=== PATIENT | male | born 1955 | race African-American/Black ===

== ENCOUNTER 2017-07-20 19:34 | Inpatient (IN) | payer MEDICARE, MEDICAID ==
[~2017-07-20] VITALS: Ht 177.8 cm; Wt 66.8 kg
[2017-07-20] VITALS (18 sets, daily range): BP systolic 70–177; BP diastolic 47–105; PULSE 35–118; RESP 14–20; TEMP 97.5–98.1; O2SAT 92–100
[~2017-07-20 19:34] MED LIST: LANTUSP SQ; PROM1SUP12 PR; PROM25SU8 PO
[2017-07-20] MEDS ORDERED: SODIUM CHLOR 0.9% 1000 ML INJ 1,000 ML IV ONE ×4 (19:47→21:45)
[2017-07-20] MEDS ORDERED: SODIUM CHLORIDE 0.9% FLUSH 10 ML FLUSH IVF PRN (20:00)
[2017-07-20] MEDS ORDERED: fentaNYL DRIP 250 ML ONE (20:07)
[2017-07-20] MEDS ORDERED: MIDAZOLAM 100 MG/100 ML INJ 100 ML ONE (20:07)
[2017-07-20 20:10] LABS: I-STAT POTASSIUM 3.7 MMOL/L (3.5-4.9); I-STAT SODIUM 142 MMOL/L (138-146)
[2017-07-20 20:14] LABS: BASOPHIL % 0.4 % (0.0-2.0); EOSINOPHIL # 0.1 TH/MM3 (0-0.4); EOSINOPHIL % 1.3 % (0.0-4.0); HEMO FLAGS DIFF FINAL; LYMPH % 41.1 % (9.0-44.0); LYMPHOCYTE # 3.3 TH/MM3 (1.0-4.8); MEAN CELL VOLUME 95.8 FL (80.0-100.0); MEAN CORPUSCULAR HEMOGLOBIN 31.8 PG (27.0-34.0); MEAN CORPUSCULAR HGB CONC 33.1 % (32.0-36.0); MONO % 7.3 % (0.0-8.0); NEUT % 49.9 % (16.0-70.0); PLATELET COUNT 164 TH/MM3 (150-450); RED BLOOD COUNT 2.82 MIL/MM3 (4.50-5.90); RED CELL DISTRIBUTION WIDTH 14.4 % (11.6-17.2)
[2017-07-20] MEDS ORDERED: PROPOFOL 1000 MG/100 ML INJ 100 ML ONE (20:18)
[2017-07-20 20:32] LABS: ANION GAP 11 MEQ/L (5-15); AST (GOT) 48 U/L (15-37); BICARBONATE 23.2 MEQ/L (21.0-32.0); BLOOD UREA NITROGEN 39 MG/DL (7-18); CHLORIDE 106 MEQ/L (98-107); GLOMERULAR FILTRATION RATE 47 ML/MIN (>89); MAGNESIUM 1.2 MG/DL (1.5-2.5); POTASSIUM 3.7 MEQ/L (3.5-5.1); SODIUM (NA) 140 MEQ/L (136-145)
[2017-07-20 20:33] LABS: ALT (GPT) 34 U/L (12-78)
[2017-07-20 20:35] LABS: APTT (PATIENT) 22.9 SEC (24.3-30.1); PROTHROMBIN TIME - PATIENT 10.6 SEC (9.8-11.6)
[2017-07-20 20:37] LABS: ALKALINE PHOSPHATASE 86 U/L (45-117); CREATINE KINASE 161 U/L (39-308); TOTAL BILIRUBIN ADULT 0.2 MG/DL (0.2-1.0)
[2017-07-20] MEDS ORDERED: SUCCINYLCHOLINE CHLORIDE 100 MG/5 ML SYRINGE IV PUSH ONE (20:45)
[2017-07-20] MEDS ORDERED: ATROPINE SULFATE 1 MG/10 ML SYRINGE IV PUSH ONE (20:45)
[2017-07-20] MEDS ORDERED: DOPamine INJ PREMIX 500 ML IV PRN (20:45)
[2017-07-20] MEDS ORDERED: ETOMIDATE 20 MG/10 ML VIAL IV PUSH ONE (20:45)
[2017-07-20] MEDS ORDERED: VECURONIUM BROMIDE 10 MG VIAL IV PUSH ONE (20:45)
[2017-07-20 20:49] LABS: CKMB 2.7 NG/ML (0.5-3.6)
--- NOTE | 2017-07-20 20:56 | PD ---
HPI Chief Complaint: Syncope/Near-Syncope Time Seen by Provider: 19:46 Travel History International Travel<30 days: No Contact w/Intl Traveler<30days: No Traveled to known affect area: No History of Present Illness HPI Patient is 61-year-old male who presents to emergency room with EMS for evaluation of syncopal episode. As per EMS, patient was a convenience store today, reports that he felt lightheaded and dizzy and laid down on the ground. Patient reports that he became unconscious for a few minutes and then came to. When EMS arrived on scene, patient was bradycardic with a heart rate in the 30s with a junctional rhythm. Initial systolic blood pressure was in the 60s. Reports that her blood sugar was within normal limits. Patient then proceeded to vomit, heart rate and went to the 70s. After patient vomited, his blood pressure did go up to 90 systolic. Patient reports that he felt fine prior to the episode at a convenience store today. Patient reports only history of diabetes. Patient denies any drug or alcohol abuse. Patient denies any headache, chest pain, abdominal pain, patient with no other complaints at this time. PFSH Past Medical History Blood Disorders: No Anxiety: No Depression: No Cancer: No Cardiovascular Problems: No Diabetes: Yes Patient Takes Glucophage: No Diminished Hearing: No Endocrine: Yes Genitourinary: No Immune Disorder: No Musculoskeletal: No Neurologic: No Psychiatric: No Reproductive: No Respiratory: No Integumentary: Yes (recent MRSA with IV antibiotics) Immunizations Current: No Past Surgical History Other Surgery: Yes (RIGHT BIG TOE AMPUTATED) Social History Alcohol Use: Yes (OCC) Tobacco Use: No Substance Use: Yes (MARIJUANA OCC) Allergies-Medications (Allergen,Severity, Reaction): Coded Allergies: No Known Allergies (Verified , 06/22/11) Reported Meds & Prescriptions Reported Meds & Active Scripts Active Phenergan (Promethazine HCl) 25 Mg Tab 12.5-25 Mg PO Q6HPRN FOR NAUSEA/VOMITING Phenergan (Promethazine HCl) 25 Mg Sup 12.5-25 Mg NV Q6HPRN FOR NAUSEA/VOMITING Lantus (Insulin Glargine) 100 Units/Ml Inj 5 Units SQ HS Review of Systems ROS Limitations: Altered Mental Status Cardiovascular: Positive: Syncope Physical Exam Narrative GENERAL: confused, pale SKIN: Focused skin assessment warm/dry. HEAD: Atraumatic. Normocephalic. EYES: Pupils equal and round. No scleral icterus. No injection or drainage. ENT: No nasal bleeding or discharge. Mucous membranes pink and moist. NECK: Trachea midline. No JVD. CARDIOVASCULAR: Bradycardic. No murmur appreciated. RESPIRATORY: No accessory muscle use. Clear to auscultation. Breath sounds equal bilaterally. GASTROINTESTINAL: Abdomen soft, non-tender, nondistended. Hepatic and splenic margins not palpable. Light brown stool, grossly heme positive MUSCULOSKELETAL: No obvious deformities. No clubbing. No cyanosis. No edema. NEUROLOGICAL: Awake and alert. Motor grossly within normal limits. Normal speech. PSYCHIATRIC: Flat mood and affect Data Data Last Documented VS Vital Signs Date Time Temp Pulse Resp B/P (MAP) Pulse Ox O2 Delivery O2 Flow Rate FiO2 07/20/17 21:15 96 178/102 07/20/17 20:45 98 60 07/20/17 20:36 18 Ventilator 07/20/17 19:50 6.00 07/20/17 19:50 98.1 Orders Orders Electrocardiogram (07/20/17 19:47) Complete Blood Count With Diff (07/20/17 19:47) Comprehensive Metabolic Panel (07/20/17 19:47) Magnesium (Mg) (07/20/17 19:47) B-Type Natriuretic Peptide (07/20/17 19:47) Ckmb (Isoenzyme) Profile (07/20/17 19:47) Troponin I (07/20/17 19:47) Act Partial Throm Time (Ptt) (07/20/17 19:47) Prothrombin Time / Inr (Pt) (07/20/17 19:47) Urinalysis - C+S If Indicated (07/20/17 19:47) Chest, Single Ap (07/20/17 19:47) Ct Brain W/O Iv Contrast(Rout) (07/20/17 19:47) Blood Glucose (07/20/17 19:47) Ecg Monitoring (07/20/17 19:47) Iv Access Insert/Monitor (07/20/17 19:47) Oximetry (07/20/17 19:47) Oxygen Administration (07/20/17 19:47) Sodium Chloride 0.9% Flush (Ns Flush) (07/20/17 20:00) Sodium Chlor 0.9% 1000 Ml Inj (Ns 1000 M (07/20/17 19:47) Sodium Chlor 0.9% 1000 Ml Inj (Ns 1000 M (07/20/17 20:00) I-Stat Creatinine (07/20/17 19:58) I-Stat Profile (07/20/17 19:58) Midazolam 100 Mg/100 Ml Inj (Versed Inj) (07/20/17 20:07) Fentanyl Drip (Fentanyl Drip) (07/20/17 20:07) Propofol 1000 Mg/100 Ml Inj (Diprivan 10 (07/20/17 20:18) Type And Screen (07/20/17 20:29) CKMB (07/20/17 19:58) CKMB% (07/20/17 19:58) Ct Abd/Pel W/O Iv Contrast (07/20/17 20:38) Ct Thorax/ Chest Wo Iv Contras (07/20/17 ) Lactic Acid Sepsis Protocol (07/20/17 20:38) Blood Culture (07/20/17 20:38) Ng Gastric Tube Insert/Monitor (07/20/17 20:38) Arterial Blood Gas (Abg) (07/20/17 ) Fentanyl Drip (Fentanyl Drip) (07/20/17 20:45) Dopamine Inj Premix (Dopamine Inj Premix (07/20/17 20:45) Midazolam 100 Mg/100 Ml Inj (Versed Inj) (07/20/17 20:45) Neurological Rass Scale Q30MX2,Q2HX4,Q4H (07/20/17 20:38) Etomidate Inj (Amidate Inj) (07/20/17 20:45) Succinylcholine Inj (Quelicin Inj) (07/20/17 20:45) Vecuronium 10 Mg Inj (Norcuron 10 Mg Inj (07/20/17 20:45) Insert Temp Sensing Naqvi Cath (07/20/17 20:42) Restraints Non-Violent BAILEY.Q3H (07/20/17 20:42) Atropine Inj (Atropine Inj) (07/20/17 20:45) Drug Screen, Random Urine (07/20/17 20:44) C Diff Toxin Pcr (07/20/17 20:45) Electrocardiogram (07/20/17 ) Magnesium Sulfate 1 Gm Premix (Magnesium (07/20/17 21:15) Ammonia (07/20/17 21:11) Vancomycin Inj (Vancomycin Inj) (07/20/17 21:32) Piperacil-Tazo 4.5 Gm Premix (Zosyn 4.5 (07/20/17 21:32) Labs Laboratory Tests Test 07/20/17 19:58 07/20/17 20:00 07/20/17 20:30 07/20/17 20:50 White Blood Count 8.0 TH/MM3 Red Blood Count 2.82 MIL/MM3 Hemoglobin 9.0 GM/DL Bedside Hemoglobin 9.5 G/DL Hematocrit 27.0 % Bedside Hematocrit 28.0 % Mean Corpuscular Volume 95.8 FL Mean Corpuscular Hemoglobin 31.8 PG Mean Corpuscular Hemoglobin Concent 33.1 % Red Cell Distribution Width 14.4 % Platelet Count 164 TH/MM3 Mean Platelet Volume 9.2 FL Neutrophils (%) (Auto) 49.9 % Lymphocytes (%) (Auto) 41.1 % Monocytes (%) (Auto) 7.3 % Eosinophils (%) (Auto) 1.3 % Basophils (%) (Auto) 0.4 % Neutrophils # (Auto) 4.0 TH/MM3 Lymphocytes # (Auto) 3.3 TH/MM3 Monocytes # (Auto) 0.6 TH/MM3 Eosinophils # (Auto) 0.1 TH/MM3 Basophils # (Auto) 0.0 TH/MM3 CBC Comment DIFF FINAL Differential Comment Prothrombin Time 10.6 SEC Prothromb Time International Ratio 1.0 RATIO Activated Partial Thromboplast Time 22.9 SEC Bedside Sodium 142 MMOL/L Blood Urea Nitrogen 39 MG/DL Creatinine 1.78 MG/DL Random Glucose 224 MG/DL Total Protein 6.6 GM/DL Albumin 3.4 GM/DL Calcium Level 8.1 MG/DL Magnesium Level 1.2 MG/DL Alkaline Phosphatase 86 U/L Aspartate Amino Transf (AST/SGOT) 48 U/L Alanine Aminotransferase (ALT/SGPT) 34 U/L Total Bilirubin 0.2 MG/DL Sodium Level 140 MEQ/L Potassium Level 3.7 MEQ/L Chloride Level 106 MEQ/L Carbon Dioxide Level 23.2 MEQ/L Bedside Potassium 3.7 MMOL/L Bedside Chloride 104 MMOL/L Anion Gap 11 MEQ/L Bedside Blood Urea Nitrogen 38 MG/DL Bedside Creatinine 1.6 MG/DL Estimat Glomerular Filtration Rate 47 ML/MIN Bedside Glucose 222 MG/DL Total Creatine Kinase 161 U/L Creatine Kinase MB 2.7 NG/ML Troponin I 0.13 NG/ML B-Type Natriuretic Peptide 79 PG/ML Urine Color YELLOW Urine Turbidity CLEAR Urine pH 5.5 Urine Specific [place] 1.019 Urine Protein 100 mg/dL Urine Glucose (UA) 70 mg/dL Urine Ketones NEG mg/dL Urine Occult Blood NEG Urine Nitrite NEG Urine Bilirubin NEG Urine Urobilinogen LESS THAN 2.0 MG/DL Urine Leukocyte Esterase NEG Urine RBC LESS THAN 1 /hpf Urine WBC 1 /hpf Urine Hyaline Casts 3 /lpf Microscopic Urinalysis Comment CATH-CULT NOT IND Urine Opiates Screen NEG Urine Barbiturates Screen NEG Urine Amphetamines Screen NEG Urine Benzodiazepines Screen NEG Urine Cocaine Screen NEG Urine Cannabinoids Screen POS Blood Gas Puncture Site LT FEMORAL Blood Gas Patient Temperature 98.6 Blood Gas HCO3 19 mmol/L Blood Gas Base Excess -8.4 mmol/L Blood Gas Oxygen Saturation 94 % Arterial Blood pH 7.16 Arterial Blood Partial Pressure CO2 55 mmHg Arterial Blood Partial Pressure O2 201 mmHG Arterial Blood Oxygen Content 11.6 Vol % Arterial Blood Carboxyhemoglobin 3.7 % Arterial Blood Methemoglobin 1.0 % Blood Gas Hemoglobin 8.4 G/DL Oxygen Delivery Device VENTILATOR Blood Gas Ventilator Setting Blood Gas Inspired Oxygen 100 % Lactic Acid Level 5.4 mmol/L MDM Medical Decision Making Medical Screen Exam Complete: Yes Emergency Medical Condition: Yes Medical Record Reviewed: Yes Interpretation(s) EKG at 1943: Afib at 53bpm, qt/qtc: 409/391 Vital Signs Date Time Temp Pulse Resp B/P (MAP) Pulse Ox O2 Delivery O2 Flow Rate FiO2 07/20/17 20:36 103 18 134/76 (95) 100 Ventilator 07/20/17 20:24 98 18 129/71 (90) 100 Ventilator 07/20/17 20:13 118 18 157/95 (115) 100 Ventilator 07/20/17 20:12 100 07/20/17 20:11 106 14 162/73 (102) 100 Ventilator 07/20/17 20:06 44 14 77/54 (62) 100 Ventilator 07/20/17 20:04 35 81/48 (59) 07/20/17 20:02 37 81/48 (59) 07/20/17 19:50 98 6.00 07/20/17 19:50 98.1 53 14 101/57 (72) 98 Nasal Cannula 6.00 07/20/17 19:50 14 101/57 (72) 98 6.00 07/20/17 19:48 64 14 98 Nasal Cannula 6.00 07/20/17 19:45 53 14 70/47 (55) 93 Nasal Cannula 6.00 07/20/17 19:40 68 20 140/80 (100) 92 Differential Diagnosis Differential includes ACS, arrhythmia, electrolyte abnormality, intracranial hemorrhage, GI bleed, infection Narrative Course Patient was placed on a rn cardiac rehab upon arrival to the emergency room. Patients EKG showed A. fib at 53 bpm, patient denies history of A. fib in the past. Patient then had a large bowel movement, he then became bradycardic with a heart rate in the 30s - 40s. 1 mg of atropine was given to patient without resolution of symptoms. Patient then became unresponsive and hypotensive. Dopamine drip was started. Patient was intubated for airway protection using succinylcholine as well as etomidate. After patient was intubated, right-sided internal jugular central line was placed. Patient was initially started on a propofol drip for sedation as his BP and HR did respond to dopamine drip, he did become hypotensive with the propofol drip. A dose of vecuronium was given to him as a paralytic as he was fighting the vent and propofol had to be held due to hypotension and I was placing central line during this time. In the meantime, fentyl and versed drip was ordered. Patient tolerated procedure well.. ABG ordered. X-ray of the chest was ordered to confirm central line placement as well as ET tube placement. CTs of the chest, abdomen and pelvis, head ordered. IV fluid bolus wide open was ordered as well. Critical Care Narrative Aggregate critical care time was 60 minutes. Time to perform other separately billable procedures was not included in the critical care time. My time did not include minutes spent treating any other patients simultaneously or on activities that did not directly contribute to the patient's treatment. The services I provided to this patient were to treat and/or prevent clinically significant deterioration that could result in: , decompensation, deterioration I provided critical care services requiring my management, as noted below: Chart data review, documentation time, medication orders and management, vital sign assessments/reviewing monitor data, ordering and reviewing lab tests, ordering and interpreting/reviewing x-rays and diagnostic studies, care of the patient and discussion of the patient with the admitting physicians. Procedures Procedure Narrative After the risks and benefits were discussed the following procedure was performed: INTUBATION: The patient was put in optimal position for the procedure. Rapid sequence intubation was initiated by me using 20 milligrams of etomidate IV and 100 milligrams of succinylcholine IV. The patient was intubated with a 7.5 cuffed endotracheal tube. Tube placement was confirmed by visualization of the tube and balloon passing through the cords, capnometry and subsequent chest x-ray. Breath sounds were equal and well aerated bilaterally postintubation. No breath sounds over stomach. Patient tolerated procedure well. CENTRAL VENOUS LINE: The site was prepped with Betadine and sterilely draped. It was infiltrated with 1% lidocaine plain. The deep vein was cannulated using normal Seldinger technique. A triple lumen central line was placed in the right EJ site and secured with simple interrupted suture. The site was sterilely dressed. The patient tolerated the procedure well. Diagnosis Primary Impression: Syncope and collapse Additional Impressions: Bradycardia GI bleed Renal insufficiency NSTEMI (non-ST elevated myocardial infarction) Sepsis Admitting Information Admitting Physician Requests: Joanne Vieyra DO Jul 20, 2017 20:56
[2017-07-20 21:00] LABS: BLOOD GAS BASE EXCESS -8.4 mmol/L (-2-2); BLOOD GAS CARBOXYHEMOGLOBIN 3.7 % (0-4); BLOOD GAS HCO3 19 mmol/L (22-26); BLOOD GAS O2 HGB SATURATION 94 % (90-100); BLOOD GAS OXYGEN CONTENT 11.6 Vol % (12.0-20.0); BLOOD GAS PCO2 55 mmHg (38-42); BLOOD GAS PO2 201 mmHG (61-120); BLOOD GAS TOTAL HGB 8.4 G/DL (12.0-16.0); CRITICAL VALUE YES; OXYGEN DEVICE VENTILATOR; TEMP CORR TO 98.6
[2017-07-20 21:00] LABS: BLOOD, URINE NEG (NEG); COMMENT (UR) CATH-CULT NOT IND; CULTURE IF INDICATED CATH CULTURE NOT IND; GLUCOSE,URINE 70 mg/dL (NEG); HYALINE CAST, URINE 3 /lpf (RARE); KETONE, URINE NEG (NEG); NITRITE,URINE NEG (NEG); PH, URINE 5.5 (5.0-8.5); URINE COLOR YELLOW (YELLW/STRAW)
[2017-07-20 21:01] LABS: DRAW SITE LT FEMORAL; FIO2 100 %; NUMBER OF ARTERIAL PUNCTURES 1; STAT YES
[2017-07-20] MEDS: fentaNYL DRIP 250 ML IV PRN (21:14)
[2017-07-20] MEDS: MIDAZOLAM 100 MG/100 ML INJ 100 ML IV PRN (21:15)
[2017-07-20] MEDS: MAGNESIUM SULFATE 1 GM PREMIX 100 ML IV SCH ×2 (21:17→22:49)
[2017-07-20] MEDS ORDERED: PIPERACIL-TAZO 4.5 GM PREMIX 100 ML IV STA (21:32)
[2017-07-20] MEDS ORDERED: VANCOMYCIN INJ 1,000 MG in SODIUM CHLOR 0.9% 250 ML INJ 250 ML IV STA (21:32)
--- NOTE | 2017-07-20 21:50 | RADRPT ---
EXAM DATE/TIME: 07/20/2017 20:59 [facility] COMPARISON: CHEST SINGLE AP, September 23, 2010, 16:15. INDICATIONS : Evaluate intubation and central line placement MEDICAL HISTORY : None. SURGICAL HISTORY : None. ENCOUNTER: Initial ACUITY: 1 day PAIN SCORE: Non-responsive. LOCATION: chest FINDINGS: There is a right internal jugular central line in place with the tip overlying the SVC. This is well placed. A pneumothorax is not seen. The ET tube tip is 3.5 cm from the linette. The NG tube tip is dir ected into the stomach. The heart size is normal. There some linear suspected atelectasis at the left lung base. Right lung is clear. CONCLUSION: ET tube, NG tube, and right internal jugular central line are all well placed. Gary Ray MD on July 20, 2017 at 21:47 Board Certified Radiologist. This report was verified electronically.
--- NOTE | 2017-07-20 22:24 | RADRPT ---
EXAM DATE/TIME: 07/20/2017 22:14 [facility] COMPARISON: No previous studies available for comparison. INDICATIONS : Syncopal episode. RADIATION DOSE: 58.60 CTDIvol (mGy) ; Tabletop CT Head MEDICAL HISTORY : Diabetes. SURGICAL HISTORY : None. ENCOUNTER: Initial ACUITY: 1 day PAIN SCALE: Non-responsive LOCATION: cranial TECHNIQUE: Multiple contiguous axial images were obtained of the head. Using automated exposure control and adj ustment of the mA and/or kV according to patient size, radiation dose was kept as low as reasonably a chievable to obtain optimal diagnostic quality images. DICOM format image data is available electro nically for review and comparison. FINDINGS: CEREBRUM: The ventricles are normal for age. No evidence of midline shift, mass lesion, hemorrhage or acute in farction. No extra-axial fluid collections are seen. POSTERIOR FOSSA: The cerebellum and brainstem are intact. The 4th ventricle is midline. The cerebellopontine angle i s unremarkable. EXTRACRANIAL: There is a 2.8 x 1.1 cm hyperdense areas seen in the posterior occipital scalp region/upper neck seen just to the right of midline. The visualized portion of the orbits is intact. There is fluid or muco patty disease in the ethmoid sinuses. The patient is intubated. SKULL: The calvaria is intact. No evidence of skull fracture. CONCLUSION: 1. No acute intracranial abnormality. 2. 2.8 cm hyperdense area seen in the superficial fat at the lower occipital/upper neck subcutaneous fat likely representing a hematoma. Gary Ray MD on July 20, 2017 at 22:20 Board Certified Radiologist. This report was verified electronically.
--- NOTE | 2017-07-20 22:38 | HHI.HP ---
HPI Service Critical Care Medicine Primary Care Physician Unknown Admission Diagnosis Sepsis, Symptomatic Bradycardia Diagnosis: Travel History International Travel<30 Days: No Contact w/Intl Traveler <30 Da: No Traveled to Known Affected Are: No History of Present Illness 61-year-old male who presents for evaluation of syncopal episode. As per EMS, patient was at convenience store today, reports that he felt lightheaded and dizzy and laid down on the ground. Patient reports that he became unconscious for a few minutes and then return to normal. When EMS arrived on scene, patient was bradycardic with a heart rate in the 30s with a junctional rhythm. Initial systolic blood pressure was in the 60s. Reports that her blood sugar was within normal limits. Patient then proceeded to vomit, heart rate and went to the 70s. After patient vomited, his blood pressure did go up to 90 systolic. Patient reports that he felt fine prior to the episode at a convenience store today. Patient reports only history of diabetes and he denies any drug or alcohol abuse. Patient denies any headache, chest pain, abdominal pain, patient with no other complaints at this time. In the emergency department he had another episode of lethargy and altered consciousness and was intubated by ED attending for an airway protection. Review of Systems ROS Unobtainable patient is sedated and intubated Past Family Social History Allergies: Coded Allergies: No Known Allergies (Verified , 07/20/17) Past Medical History Hypertension Diabetes Chronic pain syndrome Past Surgical History None Reported Medications Reported Meds & Active Scripts Active Phenergan (Promethazine HCl) 25 Mg Tab 12.5-25 Mg PO Q6HPRN FOR NAUSEA/VOMITING Phenergan (Promethazine HCl) 25 Mg Sup 12.5-25 Mg RI Q6HPRN FOR NAUSEA/VOMITING Lantus (Insulin Glargine) 100 Units/Ml Inj 5 Units SQ HS Active Ordered Medications Current Medications Medications (Trade) Dose Ordered Sig/Omero Route PRN Reason Start Time Stop Time Status Last Admin Dose Admin Fentanyl Citrate 250 ml @ 5 mls/hr TITRATE PRN IV SEDATION 07/20/17 20:45 07/20/17 21:14 Dopamine HCl/ Dextrose 500 ml @ 7.875 mls/ hr TITRATE PRN IV Blood Pressure Management 07/20/17 20:45 07/20/17 21:15 Midazolam HCl 100 ml @ 2 mls/hr TITRATE PRN IV SEDATION 07/20/17 20:45 07/20/17 21:15 Sodium Chloride 1,000 ml @ 84 mls/hr [id number] IV 07/20/17 22:39 07/20/17 23:25 Sodium Chloride (NS Flush) 2 ml UNSCH PRN IV FLUSH FLUSH AFTER USING IV ACCESS 07/20/17 22:45 Sodium Chloride (NS Flush) 2 ml BID IV FLUSH 07/21/17 09:00 Acetaminophen (Tylenol) 650 mg Q6H PRN PO FEVER >101F 07/20/17 22:45 Acetaminophen/ Hydrocodone Bitart ([place] 5-325 Mg) 1 tab Q4H PRN PO PAIN SCALE 1 TO 5 07/20/17 22:45 Morphine Sulfate (Morphine Inj) 2 mg Q2H PRN IV PUSH PAIN SCALE 6 TO 10 07/20/17 22:45 Famotidine (Pepcid Inj) 10 mg Q12HR IV PUSH 07/21/17 09:00 Lorazepam (Ativan Inj) 1 mg Q1H PRN IV PUSH Agitation/Sedation 07/20/17 22:45 Artificial Tears (Tears Naturale Opth Soln) 1 drop TID EACH EYE 07/21/17 09:00 Ondansetron HCl (Zofran Inj) 4 mg Q6H PRN IV PUSH NAUSEA OR VOMITING 07/20/17 22:45 Albuterol/ Ipratropium (Duoneb Neb) 1 ampule Q6HR NEB INH 07/21/17 04:00 Albuterol/ Ipratropium (Duoneb Neb) 1 ampule Q2HR NEB PRN INH WHEEZING 07/20/17 22:45 Heparin Sodium (Porcine) (Heparin Inj) 5,000 units Q8H SQ 07/21/17 00:00 Miscellaneous Information 1 [id number] XX 07/20/17 22:45 Chlorhexidine Gluconate (Chlorhexidine 2% Cloth) 3 pack Taper DAILY@04 TOP 07/21/17 04:00 07/17/18 03:59 Chlorhexidine Gluconate (Chlorhexidine 2% Cloth) 3 pack UNSCH PRN TOP HYGIENIC CARE 07/20/17 22:45 Senna/Docusate Sodium (Pema-Colace) 1 tab BID PO 07/21/17 09:00 Magnesium Hydroxide (Milk Of Magnesia Liq) 30 ml Q12H PRN PO MILD - MODERATE CONSTIPATION 07/20/17 22:45 Sennosides (Senokot) 17.2 mg Q12H PRN PO MODERATE - SEVERE CONSTIPATION 07/20/17 22:45 Bisacodyl (Dulcolax Supp) 10 mg DAILY PRN RECTAL SEVERE CONSITIPATION 07/20/17 22:45 Lactulose (Lactulose Liq) 30 ml DAILY PRN PO SEVERE CONSITIPATION 07/20/17 22:45 Family History Unobtainable Social History Denies history of alcohol or illicit drug abuse Physical Exam Vital Signs Vital Signs Date Time Temp Pulse Resp B/P (MAP) Pulse Ox O2 Delivery O2 Flow Rate FiO2 07/20/17 22:10 100 98 07/20/17 21:15 96 178/102 07/20/17 20:45 98 60 07/20/17 20:36 103 18 134/76 (95) 100 Ventilator 07/20/17 20:24 98 18 129/71 (90) 100 Ventilator 07/20/17 20:13 118 18 157/95 (115) 100 Ventilator 07/20/17 20:12 100 07/20/17 20:11 106 14 162/73 (102) 100 Ventilator 07/20/17 20:06 44 14 77/54 (62) 100 Ventilator 07/20/17 20:05 99 100 07/20/17 20:04 35 81/48 (59) 07/20/17 20:02 37 81/48 (59) 07/20/17 19:50 98 6.00 07/20/17 19:50 98.1 53 14 101/57 (72) 98 Nasal Cannula 6.00 07/20/17 19:50 14 101/57 (72) 98 6.00 07/20/17 19:48 64 14 98 Nasal Cannula 6.00 07/20/17 19:45 53 14 70/47 (55) 93 Nasal Cannula 6.00 07/20/17 19:40 68 20 140/80 (100) 92 Physical Exam GENERAL: Elderly appearing gentleman sedated and intubated SKIN: Warm and dry. HEAD: Normocephalic. EYES: No scleral icterus. No injection or drainage. NECK: Supple, trachea midline. No JVD or lymphadenopathy. CARDIOVASCULAR: Regular rate and rhythm without murmurs, gallops, or rubs. RESPIRATORY: Breath sounds equal bilaterally. No accessory muscle use. GASTROINTESTINAL: Abdomen soft, non-tender, nondistended. MUSCULOSKELETAL: No cyanosis, or edema. BACK: Nontender without obvious deformity. NEURO EXAM: GCS: M6 Vt E3 Mental Status: The patient is sedated and intubated Cranial Nerves: Pupils are round, reactive to light. Reflexes: Biceps, patellar, and Achilles are 2/4 bilaterally. No clonus. Laboratory Laboratory Tests Test 07/20/17 19:58 07/20/17 20:00 07/20/17 20:30 07/20/17 20:50 White Blood Count 8.0 Red Blood Count 2.82 Hemoglobin 9.0 Bedside Hemoglobin 9.5 Hematocrit 27.0 Bedside Hematocrit 28.0 Mean Corpuscular Volume 95.8 Mean Corpuscular Hemoglobin 31.8 Mean Corpuscular Hemoglobin Concent 33.1 Red Cell Distribution Width 14.4 Platelet Count 164 Mean Platelet Volume 9.2 Neutrophils (%) (Auto) 49.9 Lymphocytes (%) (Auto) 41.1 Monocytes (%) (Auto) 7.3 Eosinophils (%) (Auto) 1.3 Basophils (%) (Auto) 0.4 Neutrophils # (Auto) 4.0 Lymphocytes # (Auto) 3.3 Monocytes # (Auto) 0.6 Eosinophils # (Auto) 0.1 Basophils # (Auto) 0.0 CBC Comment DIFF FINAL Differential Comment Prothrombin Time 10.6 Prothromb Time International Ratio 1.0 Activated Partial Thromboplast Time 22.9 Bedside Sodium 142 Blood Urea Nitrogen 39 Creatinine 1.78 Random Glucose 224 Total Protein 6.6 Albumin 3.4 Calcium Level 8.1 Magnesium Level 1.2 Alkaline Phosphatase 86 Aspartate Amino Transf (AST/SGOT) 48 Alanine Aminotransferase (ALT/SGPT) 34 Total Bilirubin 0.2 Sodium Level 140 Potassium Level 3.7 Chloride Level 106 Carbon Dioxide Level 23.2 Bedside Potassium 3.7 Bedside Chloride 104 Anion Gap 11 Bedside Blood Urea Nitrogen 38 Bedside Creatinine 1.6 Estimat Glomerular Filtration Rate 47 Bedside Glucose 222 Total Creatine Kinase 161 Creatine Kinase MB 2.7 Troponin I 0.13 B-Type Natriuretic Peptide 79 Urine Color YELLOW Urine Turbidity CLEAR Urine pH 5.5 Urine Specific [place] 1.019 Urine Protein 100 Urine Glucose (UA) 70 Urine Ketones NEG Urine Occult Blood NEG Urine Nitrite NEG Urine Bilirubin NEG Urine Urobilinogen LESS THAN 2.0 Urine Leukocyte Esterase NEG Urine RBC LESS THAN 1 Urine WBC 1 Urine Hyaline Casts 3 Microscopic Urinalysis Comment CATH-CULT NOT IND Urine Opiates Screen NEG Urine Barbiturates Screen NEG Urine Amphetamines Screen NEG Urine Benzodiazepines Screen NEG Urine Cocaine Screen NEG Urine Cannabinoids Screen POS Blood Gas Puncture Site LT FEMORAL Blood Gas Patient Temperature 98.6 Blood Gas HCO3 19 Blood Gas Base Excess -8.4 Blood Gas Oxygen Saturation 94 Arterial Blood pH 7.16 Arterial Blood Partial Pressure CO2 55 Arterial Blood Partial Pressure O2 201 Arterial Blood Oxygen Content 11.6 Arterial Blood Carboxyhemoglobin 3.7 Arterial Blood Methemoglobin 1.0 Blood Gas Hemoglobin 8.4 Oxygen Delivery Device VENTILATOR Blood Gas Ventilator Setting Blood Gas Inspired Oxygen 100 Lactic Acid Level 5.4 Test 07/20/17 21:30 Ammonia 11 Date/Time Source Procedure Growth Status 07/20/17 20:46 Blood Peripheral Aerobic Blood Culture Pending Received 07/20/17 20:46 Blood Peripheral Anaerobic Blood Culture Pending Received Result Diagram: 07/20/[id number] Imaging Last 24 hours Impressions Abdomen/Pelvis CT 07/20/[id number] Signed Impressions: Service Date/Time: July 22:18 - CONCLUSION: 1. Mild amount of ascites seen around the liver. 2. Mild thickening of the gallbladder wall. This is nonspecific. Calcified gallstones are not seen. 3. Moderate distension of the urinary bladder. There is Naqvi catheter in the urinary bladder. Gary Ray MD Head CT [id number]/20/[id number] Signed Impressions: Service Date/Time: July 22:14 - CONCLUSION: 1. No acute intracranial abnormality. 2. 2.8 cm hyperdense area seen in the superficial fat at the lower occipital/upper neck subcutaneous fat likely representing a hematoma. Gary Ray MD Chest X-Ray [id number]/20/[id number] Signed Impressions: Service Date/Time: July 20:59 - CONCLUSION: ET tube, NG tube, and right internal jugular central line are all well placed. Gary Ray MD [place] VTE Risk Assessment Caprini VTE Risk Assessment: Mod/High Risk (score >= 2) Caprini Risk Assessment Model Point Value = 1 Point Value = 2 Point Value = 3 Point Value = 5 Age 41-60 Minor surgery BMI > 25 kg/m2 Swollen legs Varicose veins or History of unexplained or recurrent spontaneous Oral contraceptives or hormone replacement Sepsis (< 1 month) Serious lung disease, including pneumonia (< 1 month) Abnormal pulmonary function Acute myocardial infarction Congestive heart failure (< 1 month) History of inflammatory bowel disease Medical patient at bed rest Age 61-74 Arthroscopic surgery Major open surgery (> 45 min) Laparoscopic surgery (> 45 min) Malignancy Confined to bed (> 72 hours) Immobilizing plaster cast Central venous access Age >= 75 History of VTE Family history of VTE Factor V Leiden Prothrombin [id number] Lupus anticoagulant Anticardiolipin antibodies Elevated serum homocysteine Heparin-induced thrombocytopenia Other congenital or acquired thrombophilia Stroke (< 1 month) Elective arthroplasty Hip, pelvis, or leg fracture Acute spinal cord injury (< 1 month) Prophylaxis Regimen Total Risk Factor Score Risk Level Prophylaxis Regimen 0-1 Low Early ambulation 2 Moderate Order ONE of the following: *Sequential Compression Device (SCD) *Heparin 5000 units SQ BID 3-4 Higher Order ONE of the following medications: *Heparin 5000 units SQ TID *Enoxaparin/Lovenox 40 mg SQ daily (WT < 150 kg, CrCl > 30 mL/min) *Enoxaparin/Lovenox 30 mg SQ daily (WT < 150 kg, CrCl > 10-29 mL/min) *Enoxaparin/Lovenox 30 mg SQ BID (WT < 150 kg, CrCl > 30 mL/min) AND/OR *Sequential Compression Device (SCD) 5 or more Highest Order ONE of the following medications: *Heparin 5000 units SQ TID (Preferred with Epidurals) *Enoxaparin/Lovenox 40 mg SQ daily (WT < 150 kg, CrCl > 30 mL/min) *Enoxaparin/Lovenox 30 mg SQ daily (WT < 150 kg, CrCl > 10-29 mL/min) *Enoxaparin/Lovenox 30 mg SQ BID (WT < 150 kg, CrCl > 30 mL/min) AND *Sequential Compression Device (SCD) Assessment and Plan Assessment and Plan Respiratory failure - Intubated for an airway protection - No weaning until neurologically and hemodynamically stable - CXR and ABG daily - Vent bundle Bradycardia - Dopamine drip to keep map above 65 - Cardiology consult - 2-D echo - Series of troponins - Telemetry - Serial EKGs Syncopal episode - CT head negative - Likely due to bradycardia - Ultrasound carotids - Further per cardiac workup Diabetes - Hold metformin due to lactic acidosis - Insulin sliding scale Lactic acidosis - Acute kidney injury - Mcclellan metformin - Monitor trend - IV fluid hydration Acute kidney injury - Unknown baseline - Strict I's and O - Monitor trend of creatinine and electrolytes DVT GI prophylaxis - Teds SCDs - Subcutaneous heparin and Pepcid Critical Care: The total critical care time was 35 minutes. Time to perform other separately billable procedures was not included in the critical care time. David Clements MD Jul 20, 2017 22:38
[2017-07-20] MEDS ORDERED: BISACODYL 10 MG SUPP RECTAL PRN (22:45)
[2017-07-20] MEDS ORDERED: LACTULOSE SYRUP 20 GM/30 ML CUP PO PRN (22:45)
[2017-07-20] MEDS ORDERED: RESP: ALBUTEROL 2.5 MG/IPRATROPIUM 0.5 MG NEB (PRN) INH (22:45)
[2017-07-20] MEDS ORDERED: MAGNESIUM HYDROXIDE SUSP 30 ML CUP PO PRN (22:45)
[2017-07-20] MEDS ORDERED: LORazepam 2 MG/ML VIAL IV PUSH PRN (22:45)
[2017-07-20] MEDS ORDERED: MORPHINE SULFATE 4 MG/ML INJ IV PUSH PRN (22:45)
[2017-07-20] MEDS ORDERED: MISCELLANEOUS NURSING INFORMATION XX SCH (22:45)
[2017-07-20] MEDS ORDERED: SENNOSIDES 8.6 MG TAB PO PRN (22:45)
[2017-07-20] MEDS ORDERED: ONDANSETRON HCL 4 MG/2 ML VIAL IV PUSH PRN (22:45)
[2017-07-20] MEDS ORDERED: CHLORHEXIDINE GLUCONATE 2 % 1 PACK (2 CLOTHS) TOP PRN (22:45)
[2017-07-20] MEDS ORDERED: SODIUM CHLORIDE 0.9% FLUSH 10 ML FLUSH IV FLUSH PRN (22:45)
[2017-07-20] MEDS ORDERED: ACETAMINOPHEN/HYDROcodone 325 MG/5 MG TAB PO PRN (22:45)
[2017-07-20] MEDS ORDERED: ACETAMINOPHEN 325 MG TAB PO PRN (22:45)
--- NOTE | 2017-07-20 22:48 | RADRPT ---
EXAM DATE/TIME: 07/20/2017 22:18 [facility] COMPARISON: No previous studies available for comparison. INDICATIONS : Patient had syncopal episode today. Abdominal pain. ORAL CONTRAST: No oral contrast ingested. RADIATION DOSE: 16.97 CTDIvol (mGy) ; Combined studies - Thorax/Abdomen/Pelvis MEDICAL HISTORY : Diabetes. SURGICAL HISTORY : None. ENCOUNTER: Initial ACUITY: 1 day PAIN SCALE: Non-responsive LOCATION: All quadrants. TECHNIQUE: Volumetric scanning of the abdomen and pelvis was performed. Using automated exposure control and adjustment of the mA and/or kV according to patient size, radiation dose was kept as low as reasonably achievable to obtain optimal diagnostic quality images. DICOM format image data is av ailable electronically for review and comparison. FINDINGS: No oral or intravenous contrast was given with this exam. The liver, spleen, pancreas, adrenal glands and kidneys appear normal for a noncontrast CT examination. There is an NG tube in p lace with the tip in the stomach. The bowel is unremarkable. Gallbladder wall is mildly thickened a t 5 mm. Calcified gallstones are not seen. There is a mild amount of ascites seen around the liver a nd the right upper quadrant. The urinary bladder is moderately distended. There is a Naqvi catheter in the urinary bladder. Ther e is a small amount of air within the urinary bladder presumably from the catheterization. Scattered atherosclerotic calcifications are seen throughout the arterial system. No aneurysm is seen. The b dieudonne structures are grossly intact. The patient is scheduled for a CT examination of the chest. Plea se see the CT of the chest report for full analysis of the lungs. CONCLUSION: 1. Mild amount of ascites seen around the liver. 2. Mild thickening of the gallbladder wall. This is nonspecific. Calcified gallstones are not seen. 3. Moderate distension of the urinary bladder. There is Naqvi catheter in the urinary bladder. Gary Ray MD on July 20, 2017 at 22:38 Board Certified Radiologist. This report was verified electronically.
[2017-07-20 22:54] LABS: LACTIC ACID GHOST NOT REPORTABLE
--- NOTE | 2017-07-20 22:54 | RADRPT ---
EXAM DATE/TIME: 07/20/2017 22:18 [facility] COMPARISON: No previous studies available for comparison. INDICATIONS : Shortness of breath. RADIATION DOSE: 16.97 CTDIvol (mGy) ; Combined studies - Thorax/Abdomen/Pelvis MEDICAL HISTORY : Diabetes. SURGICAL HISTORY : None. ENCOUNTER: Initial ACUITY: 1 day PAIN SCALE: Non-responsive LOCATION: chest TECHNIQUE: Volumetric scanning of the chest was performed. Using automated exposure control and adjustment of t he mA and/or kV according to patient size, radiation dose was kept as low as reasonably achievable to obtain optimal diagnostic quality images. DICOM format image data is available electronically for r eview and comparison. Follow-up recommendations for detected pulmonary nodules are based at a minimum on nodule size and pa tient risk factors according to Fleischner Society Guidelines. FINDINGS: LUNGS: There is increased density at the posterior lower lobes bilaterally represent some consolidation or a telectasis. There is milder focal densities seen at the mid right lung. PLEURAE: There is no pleural thickening or pleural effusion. MEDIASTINUM: The heart and great vessels demonstrate no acute abnormality. There is no mediastinal or hilar lymph adenopathy. Coronary artery calcifications are present. AXILLAE: Within normal limits. No lymphadenopathy. MUSCULOSKELETAL: Within normal limits for patient age. MISCELLANEOUS: The ET tube and NG tube are well placed. There is a right internal jugular central line in place. The there is mild bilateral gynecomastia. The patient had a CT of the abdomen and pelvis. This is dictat ed on a separate report. CONCLUSION: Bibasilar areas of consolidation or atelectasis. Gary Ray MD on July 20, 2017 at 22:49 Board Certified Radiologist. This report was verified electronically.
[2017-07-20] MEDS: SODIUM CHLOR 0.9% 1000 ML INJ 1,000 ML IV SCH (23:25)
[2017-07-20 23:56] LABS: BLOOD GAS BASE EXCESS 1.2 mmol/L (-2-2); BLOOD GAS CARBOXYHEMOGLOBIN 0.5 % (0-4); BLOOD GAS HCO3 24 mmol/L (22-26); BLOOD GAS METHEMOGLOBIN 0.4 % (0-2); BLOOD GAS O2 HGB SATURATION 97 % (90-100); BLOOD GAS OXYGEN CONTENT 11.5 Vol % (12.0-20.0); BLOOD GAS PCO2 32 mmHg (38-42); BLOOD GAS PO2 154 mmHG (61-120); BLOOD GAS TOTAL HGB 8.2 G/DL (12.0-16.0); CRITICAL VALUE NO; OXYGEN DEVICE VENTILATOR; TEMP CORR TO 98.6
[2017-07-20 23:57] LABS: DRAW SITE RT FEMORAL; FIO2 60 %; NUMBER OF ARTERIAL PUNCTURES 1; STAT NO
[2017-07-21] VITALS (37 sets, daily range): BP systolic 94–121; BP diastolic 55–71; PULSE 77–91; RESP 14–17; TEMP 97.7–98.1; O2SAT 97–100
[2017-07-21] MEDS ORDERED: GLUCAGON 1 MG/ML VIAL OTHER PRN (00:30)
[2017-07-21] MEDS ORDERED: DEXTROSE 50% IN WATER 50 ML VIAL(D50) IV PUSH PRN (00:30)
[2017-07-21] MEDS: CHLORHEXIDINE GLUCONATE 2 % 1 PACK (2 CLOTHS) TOP SCH (01:27)
[2017-07-21] MEDS: HEPARIN SODIUM - SQ 10,000 UNITS/ML VIAL SQ SCH ×3 (01:27→16:00)
[2017-07-21 03:21] LABS: BASOPHIL % 0.3 % (0.0-2.0); EOSINOPHIL % 0.3 % (0.0-4.0); HEMATOCRIT 23.9 % (39.0-51.0); HEMO FLAGS DIFF FINAL; LYMPH % 20.5 % (9.0-44.0); LYMPHOCYTE # 1.7 TH/MM3 (1.0-4.8); MEAN CELL VOLUME 94.4 FL (80.0-100.0); MEAN CORPUSCULAR HEMOGLOBIN 31.2 PG (27.0-34.0); MONO % 4.9 % (0.0-8.0); PLATELET COUNT 136 TH/MM3 (150-450); RED BLOOD COUNT 2.54 MIL/MM3 (4.50-5.90); WHITE BLOOD COUNT 8.1 TH/MM3 (4.0-11.0)
[2017-07-21] MEDS: RESP: ALBUTEROL 2.5 MG/IPRATROPIUM 0.5 MG NEB (SCH) INH ×4 (03:29→20:25)
[2017-07-21 04:05] LABS: BICARBONATE 26.3 MEQ/L (21.0-32.0); CALCIUM-PROTEIN CORRECTED 7.7 MG/DL (8.5-10.1); MAGNESIUM 1.6 MG/DL (1.5-2.5); POTASSIUM 3.7 MEQ/L (3.5-5.1); TOTAL BILIRUBIN ADULT 0.2 MG/DL (0.2-1.0)
[2017-07-21 04:22] LABS: CKMB 15.4 NG/ML (0.5-3.6)
[2017-07-21] MEDS ORDERED: ATORVASTATIN 40 MG TAB PO ONE (04:30)
[2017-07-21] MEDS ORDERED: ASPIRIN 325 MG TAB PO ONE (04:30)
[2017-07-21] MEDS: HEPARIN-D5W 25,000 U/250 ML 250 ML IV PRN (04:56)
[2017-07-21] MEDS ORDERED: DIGOXIN 0.5 MG/2 ML VIAL IV PUSH ONE (05:00)
[2017-07-21] MEDS ORDERED: DOPamine INJ PREMIX 500 ML IV ONE (05:00)
--- NOTE | 2017-07-21 05:13 | RADRPT ---
EXAM DATE/TIME: 07/21/2017 03:51 [facility] COMPARISON: CT THORAX W/O CONTRAST, July 20, 2017, 22:18. CHEST SINGLE AP, July 20, 2017, 20:59. INDICATIONS : Evalaute for respiratory failure. MEDICAL HISTORY : None. SURGICAL HISTORY : None. ENCOUNTER: Subsequent ACUITY: 2 days PAIN SCORE: Non-responsive. LOCATION: chest FINDINGS: A single portable frontal view of the chest shows no interval change. A linear area consolidation is again seen within the retrocardiac aspect the left lung base. This is unchanged. No effusions. Right lung is clear. Heart normal size. Tip and endotracheal tube 5 cm from the linette. Tip of the nasogast pamela tube in the region of the body of the stomach. Right-sided central line. CONCLUSION: Unchanged left basilar atelectasis. Lines and tubes. Anibal Alatorre Jr., MD on July 21, 2017 at 5:10 Board Certified Radiologist. This report was verified electronically.
[2017-07-21 05:22] LABS: BLOOD GAS CARBOXYHEMOGLOBIN 0.1 % (0-4); BLOOD GAS HCO3 25 mmol/L (22-26); BLOOD GAS O2 HGB SATURATION 97 % (90-100); BLOOD GAS OXYGEN CONTENT 12.2 Vol % (12.0-20.0); BLOOD GAS PCO2 47 mmHg (38-42); BLOOD GAS PO2 182 mmHg (61-120); BLOOD GAS TOTAL HGB 8.7 G/DL (12.0-16.0); CRITICAL VALUE NO; FIO2 40 %; OXYGEN DEVICE VENTILATOR; TEMP CORR TO 98.6; VENT SETTINGS 14/500/IT0.9/5PEEP
[2017-07-21 05:23] LABS: DRAW SITE RT RADIAL; NUMBER OF ARTERIAL PUNCTURES 1; STAT NO; ULNAR PULSE PRESENT
[2017-07-21 05:35] LABS: APTT (PATIENT) 25.9 SEC (24.3-30.1); PROTHROMBIN TIME - PATIENT 10.7 SEC (9.8-11.6)
[2017-07-21] MEDS: INSULIN ASPART SUPPLEMENTAL SCALE SQ SCH ×4 (08:00→20:09)
--- NOTE | 2017-07-21 08:46 | MB ---
cc: CHANTE SUH MD DATE OF CONSULTATION: 07/21/2017 HISTORY OF PRESENT ILLNESS This is a 61-year-old gentleman who is admitted to the hospital after having a syncopal episode. The patient is intubated and sedated and the history comes primarily from nursing and his record. He apparently was in a convenience store, felt light-headed and dizzy and then became unconscious. He regained consciousness. EMS had been summoned and they noted bradycardic rhythm with a heart rate in the 30s with systolic blood pressure in the 60s. He then had an episode of vomiting, heart rate in the 70s with blood pressures in the 90s. He was brought to the hospital and subsequently intubated. LABORATORY His laboratory examination shows a normal white count with rather significant anemia with an initial hemoglobin of 9 and subsequent follow-up hemoglobin of 7.9. His chemistry is remarkable for an increase in his total CK at 347 with a 4% MB fraction and a troponin of 10. Electrolytes are essentially normal and renal function is just mildly abnormal at 1.25. ELECTROCARDIOGRAM Electrocardiogram demonstrates sinus rhythm with T-wave inversion in the inferior leads but no acute ST-segment changes are noted. IMAGING Imaging studies show a normal chest x-ray. A CT of his chest shows bilateral basilar areas of atelectasis. PHYSICAL EXAMINATION GENERAL: He is intubated. VITAL SIGNS: Blood pressure 120/70, pulse 87 and regular and appears to be sinus with short GA. NECK: No neck vein distension is present. LUNGS: Clear. CARDIOVASCULAR: Regular rate and rhythm. There is no murmur or gallop noted. Femoral pulses are intact. ASSESSMENT AND RECOMMENDATIONS The patient has had a syncopal episode, possibly secondary to sick sinus syndrome. We do note a strip of atrial fibrillation with a very slow ventricular response upon his arrival to the hospital. He also has had a significant anemia. At this point in time certainly will repeat his H&H tomorrow and will also check a D-dimer to rule out the possibility of pulmonary emboli as well. His troponin is elevated which would be consistent with a [id number] elevation IL. Pending the above studies we will consider cardiac catheterization once his ventilatory status has stabilized and the above studies have been placed. MD SHIRA Pavon/ELOY /7:59 AM /8:33 AM
[2017-07-21] MEDS: ARTIFICIAL TEARS OPTH SOLN 15 ML BTL EACH EYE SCH ×3 (09:00→18:00)
[2017-07-21] MEDS: SODIUM CHLORIDE 0.9% FLUSH 10 ML FLUSH IV FLUSH SCH ×2 (09:00→20:08)
[2017-07-21] MEDS: SODIUM CHLOR 0.9% 1000 ML INJ 1,000 ML IV SCH ×2 (09:32→20:09)
[2017-07-21] MEDS: MIDAZOLAM 100 MG/100 ML INJ 100 ML IV PRN ×2 (09:32→20:10)
[2017-07-21] MEDS: DOCUSATE SODIUM 50 MG/SENNA 8.6 MG TAB PO SCH ×2 (09:32→20:09)
[2017-07-21] MEDS: FAMOTIDINE 20 MG/2 ML VIAL IV PUSH SCH ×2 (09:33→20:09)
[2017-07-21] MEDS: fentaNYL DRIP 250 ML IV PRN (11:23)
--- NOTE | 2017-07-21 12:23 | EKG ---
Date Performed: 07/20/2017 Time Performed: 21:16:27 PTAGE: 61 years EKG: Sinus rhythm WITH SHORT NE INTERVAL NONSPECIFIC ST & T-WAVE ABNORMALITY Consider inferior myocardial infarction - age indeterminate ABNORMAL ECG PREVIOUS TRACING : 07/20/2017 19.43 Compared to the previous tracing, patient is now in normal sinus rhythm. DOCTOR: Noel Ceballos Interpretating Date/Time 07/21/2017 12:21:54
--- NOTE | 2017-07-21 12:23 | EKG ---
Date Performed: 07/20/2017 Time Performed: 19:43:38 PTAGE: 61 years EKG: ATRIAL FIBRILLATION WITH SLOW VENTRICULAR RESPONSE NONSPECIFIC T-WAVE ABNORMALITY ABNORMAL RHYTHM ECG PREVIOUS TRACING : 06/22/2011 19.13 Compared to previous tracing, patient is now in atrial fibr illation. DOCTOR: Noel Ceballos Interpretating Date/Time 07/21/2017 12:21:19
--- NOTE | 2017-07-21 12:23 | EKG ---
Date Performed: 07/21/2017 Time Performed: 04:30:04 PTAGE: 61 years EKG: Sinus rhythm . Consider inferior myocardial infarction - age undetermined Abnormal ECG PREVIOUS TRACING 07/20/17 Compared to prior tracing no significant change DOCTOR: Noel Ceballos Interpretating Date/Time 07/21/2017 12:22:27
[2017-07-21 12:55] LABS: APTT (PATIENT) 76.2 SEC (24.3-30.1)
[2017-07-21] MEDS ORDERED: MAGNESIUM SULFATE 2 GM/NS 100 ML IV ONE ×2 (15:00)
--- NOTE | 2017-07-21 17:13 | ECHRPT ---
Indication: CVA/TIA CONCLUSIONS Normal left ventricular size. Mild concentric left ventricular hypertrophy. Mild mitral valve regurgitation. There is mild tricuspid valve regurgitation. The estimated pulmonary arterial pressure is 30.8 mmHg. BP: 101 / 67 HR: Rhythm: Sinus MEASUREMENTS (Male / Female) Normal Values Technical Quality:Fair 2D ECHO LV Diastolic Diameter PLAX 3.5 cm 4.2 - 5.9 / 3.9 - 5.3 cm LV Systolic Diameter PLAX 2.5 cm IVS Diastolic Thickness 1.1 cm 0.6 - 1.0 / 0.6 - 0.9 cm LVPW Diastolic Thickness 1.1 cm 0.6 - 1.0 / 0.6 - 0.9 cm LV Relative Wall Thickness 0.6 LVOT Diameter 1.7 cm Aortic Root Diameter 2.1 cm LA Systolic Diameter LX 3.1 cm 3.0 - 4.0 / 2.7 - 3.8 cm M-MODE AV Cusp Separation MM 1.6 cm DOPPLER AV Peak Velocity 89.6 cm/s AV Peak Gradient 3.2 mmHg AV Mean Gradient 2.0 mmHg AV Velocity Time Integral 16.8 cm LVOT Peak Velocity 73.7 cm/s LVOT Peak Gradient 2.2 mmHg LVOT Velocity Time Integral 12.1 cm AV Area Cont Eq vti 1.6 cm AV Area Cont Eq pk 1.9 cm Mitral E Point Velocity 80.5 cm/s Mitral A Point Velocity 87.4 cm/s Mitral E to A Ratio 0.9 LV E' Lateral Velocity 11.3 cm/s Mitral E to LV E' Lateral Ratio 7.1 LV E' Septal Velocity 6.7 cm/s Mitral E to LV E' Septal Ratio 12.0 TR Peak Velocity 228.0 cm/s TR Peak Gradient 20.8 mmHg Right Atrial Pressure 10.0 mmHg Pulmonary Artery Systolic Pressu 30.8 mmHg Right Ventricular Systolic Press 30.8 mmHg FINDINGS LEFT VENTRICLE Normal left ventricular size. Mild concentric left ventricular hypertrophy. MITRAL VALVE Mild mitral valve regurgitation. TRICUSPID VALVE There is mild tricuspid valve regurgitation. The estimated pulmonary arterial pressure is 30.8 mmHg. Onofre Hernandez MD (Electronically Signed) Final Date:21 July 2017 17:12
--- NOTE | 2017-07-21 19:40 | HHI.CCPN ---
Subjective Remarks/Hospital Course 07/20: 61-year-old male who presents for evaluation of syncopal episode. As per EMS, patient was at convenience store today, reports that he felt lightheaded and dizzy and laid down on the ground. Patient reports that he became unconscious for a few minutes and then return to normal. When EMS arrived on scene, patient was bradycardic with a heart rate in the 30s with a junctional rhythm. Initial systolic blood pressure was in the 60s. Reports that her blood sugar was within normal limits. Patient then proceeded to vomit, heart rate and went to the 70s. After patient vomited, his blood pressure did go up to 90 systolic. Patient reports that he felt fine prior to the episode at a convenience store today. Patient reports only history of diabetes and he denies any drug or alcohol abuse. Patient denies any headache, chest pain, abdominal pain, patient with no other complaints at this time. In the emergency department he had another episode of lethargy and altered consciousness and was intubated by ED attending for an airway protection. 07/21: Remains sedated, orally intubated on mechanical ventilation. Objective Vital Signs Date Time Temp Pulse Resp B/P (MAP) Pulse Ox O2 Delivery O2 Flow Rate FiO2 07/21/17 18:30 97.7 87 14 104/62 (76) 100 07/21/17 16:05 40 07/20/17 23:16 Ventilator 07/20/17 19:50 6.00 Intake and Output 07/21/17 07/21/17 07/22/17 08:00 16:00 00:00 Intake Total 1365 ml 1100 ml 100 ml Output Total 1500 ml Balance -135 ml 1100 ml 100 ml Result Diagram: 07/21/17 0230 07/21/17 0230 Other Results Laboratory Tests Test 07/20/17 20:30 07/20/17 23:30 07/21/17 05:00 Blood Gas Puncture Site LT FEMORAL RT FEMORAL RT RADIAL Blood Gas Patient Temperature 98.6 98.6 98.6 Blood Gas HCO3 19 mmol/L (22-26) 24 mmol/L (22-26) 25 mmol/L (22-26) Blood Gas Base Excess -8.4 mmol/L (-2-2) 1.2 mmol/L (-2-2) 0.0 mmol/L (-2-2) Blood Gas Oxygen Saturation 94 % (90-100) 97 % (90-100) 97 % (90-100) Arterial Blood pH 7.16 (7.380-7.420) 7.49 (7.380-7.420) 7.35 (7.380-7.420) Arterial Blood Partial Pressure CO2 55 mmHg (38-42) 32 mmHg (38-42) 47 mmHg (38-42) Arterial Blood Partial Pressure O2 201 mmHG (61-120) 154 mmHG (61-120) 182 mmHg (61-120) Arterial Blood Oxygen Content 11.6 Vol % (12.0-20.0) 11.5 Vol % (12.0-20.0) 12.2 Vol % (12.0-20.0) Arterial Blood Carboxyhemoglobin 3.7 % (0-4) 0.5 % (0-4) 0.1 % (0-4) Arterial Blood Methemoglobin 1.0 % (0-2) 0.4 % (0-2) 1.0 % (0-2) Blood Gas Hemoglobin 8.4 G/DL (12.0-16.0) 8.2 G/DL (12.0-16.0) 8.7 G/DL (12.0-16.0) Oxygen Delivery Device VENTILATOR VENTILATOR VENTILATOR Blood Gas Ventilator Setting 14/500/IT0.9/5PEEP Blood Gas Inspired Oxygen 100 % 60 % 40 % Imaging Last 24 hours Impressions Abdomen/Pelvis CT 07/20/172037 Signed Impressions: Service Date/Time: July 22:18 - CONCLUSION: 1. Mild amount of ascites seen around the liver. 2. Mild thickening of the gallbladder wall. This is nonspecific. Calcified gallstones are not seen. 3. Moderate distension of the urinary bladder. There is Naqvi catheter in the urinary bladder. Gary Ray MD Head CT 07/20/171946 Signed Impressions: Service Date/Time: July 22:14 - CONCLUSION: 1. No acute intracranial abnormality. 2. 2.8 cm hyperdense area seen in the superficial fat at the lower occipital/upper neck subcutaneous fat likely representing a hematoma. Gary Ray MD Chest X-Ray 07/20/171946 Signed Impressions: Service Date/Time: July 20:59 - CONCLUSION: ET tube, NG tube, and right internal jugular central line are all well placed. Gary Ray MD Objective Remarks GENERAL: Elderly appearing gentleman sedated and intubated SKIN: Warm and dry. HEAD: Normocephalic. EYES: No scleral icterus. No injection or drainage. NECK: Supple, trachea midline. No JVD or lymphadenopathy. CARDIOVASCULAR: Regular rate and rhythm without murmurs, gallops, or rubs. RESPIRATORY: Breath sounds equal bilaterally. No accessory muscle use. GASTROINTESTINAL: Abdomen soft, non-tender, nondistended. MUSCULOSKELETAL: No cyanosis, or edema. BACK: Nontender without obvious deformity. NEURO EXAM: GCS: M6 Vt E3 Mental Status: The patient is sedated and intubated Cranial Nerves: Pupils are round, reactive to light. Reflexes: Biceps, patellar, and Achilles are 2/4 bilaterally. No clonus. A/P Assessment and Plan Respiratory failure - Intubated for an airway protection - No weaning until neurologically and hemodynamically stable - Vent bundle Bradycardia - Dopamine drip to keep map above 65 - Cardiology consulted, - 2-D echo -Elevated troponin consistent with non-ST elevation [place] per cardiology. Timing of Cardiac catheterization per cardiology - Telemetry - Serial EKGs Syncopal episode - CT head negative - Likely due to bradycardia, possible sick sinus syndrome, reportedly had slow A. fib on some telemetry strips per cardiology. - Ultrasound carotids - Further per cardiac workup Diabetes - Hold metformin due to lactic acidosis - Insulin sliding scale Lactic acidosis - Acute kidney injury - Mcclellan metformin - Monitor trend - IV fluid hydration Acute kidney injury - Unknown baseline - Strict I's and O - Monitor trend of creatinine and electrolytes DVT GI prophylaxis - Teds SCDs - Subcutaneous heparin and Pepcid Critical Care: The total critical care time was 35 minutes. Time to perform other separately billable procedures was not included in the critical care time. Stef Gross MD Jul 21, 2017 19:40
[2017-07-21 20:16] LABS: APTT (PATIENT) 72.4 SEC (24.3-30.1)
[2017-07-22] VITALS (19 sets, daily range): BP systolic 104–147; BP diastolic 63–75; PULSE 90–105; RESP 9–14; TEMP 98.2–98.9; O2SAT 100
[2017-07-22] MEDS: RESP: ALBUTEROL 2.5 MG/IPRATROPIUM 0.5 MG NEB (SCH) INH ×4 (03:25→19:55)
[2017-07-22] MEDS: MIDAZOLAM 100 MG/100 ML INJ 100 ML IV PRN (03:38)
[2017-07-22] MEDS: CHLORHEXIDINE GLUCONATE 2 % 1 PACK (2 CLOTHS) TOP SCH (03:38)
[2017-07-22 04:26] LABS: AUTOMATED NEUTROPHIL # 4.9 TH/MM3 (1.8-7.7); BASOPHIL # 0.1 TH/MM3 (0-0.2); BASOPHIL % 1.1 % (0.0-2.0); EOSINOPHIL # 0.1 TH/MM3 (0-0.4); HEMO FLAGS DIFF FINAL; LYMPH % 18.6 % (9.0-44.0); LYMPHOCYTE # 1.3 TH/MM3 (1.0-4.8); MEAN CELL VOLUME 95.1 FL (80.0-100.0); MEAN CORPUSCULAR HEMOGLOBIN 31.4 PG (27.0-34.0); MEAN CORPUSCULAR HGB CONC 33.1 % (32.0-36.0); MONO % 10.2 % (0.0-8.0); NEUT % 69.1 % (16.0-70.0); PLATELET COUNT 125 TH/MM3 (150-450); RED BLOOD COUNT 2.42 MIL/MM3 (4.50-5.90); RED CELL DISTRIBUTION WIDTH 14.6 % (11.6-17.2)
[2017-07-22 04:51] LABS: BICARBONATE 26.5 MEQ/L (21.0-32.0); POTASSIUM 3.6 MEQ/L (3.5-5.1)
[2017-07-22 05:20] LABS: CALCIUM-PROTEIN CORRECTED 8.1 MG/DL (8.5-10.1); TOTAL BILIRUBIN ADULT 0.2 MG/DL (0.2-1.0)
[2017-07-22 06:39] LABS: APTT (PATIENT) 72.5 SEC (24.3-30.1)
[2017-07-22] MEDS: INSULIN ASPART SUPPLEMENTAL SCALE SQ SCH ×4 (08:00→20:48)
[2017-07-22] MEDS: ARTIFICIAL TEARS OPTH SOLN 15 ML BTL EACH EYE SCH ×3 (08:09→18:00)
[2017-07-22] MEDS: SODIUM CHLORIDE 0.9% FLUSH 10 ML FLUSH IV FLUSH SCH ×2 (08:09→21:29)
[2017-07-22] MEDS: DOCUSATE SODIUM 50 MG/SENNA 8.6 MG TAB PO SCH ×2 (08:10→21:30)
[2017-07-22] MEDS: FAMOTIDINE 20 MG/2 ML VIAL IV PUSH SCH ×2 (08:11→21:30)
[2017-07-22] MEDS: fentaNYL DRIP 250 ML IV PRN ×3 (09:26→20:12)
--- NOTE | 2017-07-22 10:22 | HHI.CCPN ---
Subjective Remarks/Hospital Course 07/20: 61-year-old male who presents for evaluation of syncopal episode. As per EMS, patient was at convenience store today, reports that he felt lightheaded and dizzy and laid down on the ground. Patient reports that he became unconscious for a few minutes and then return to normal. When EMS arrived on scene, patient was bradycardic with a heart rate in the 30s with a junctional rhythm. Initial systolic blood pressure was in the 60s. Reports that her blood sugar was within normal limits. Patient then proceeded to vomit, heart rate and went to the 70s. After patient vomited, his blood pressure did go up to 90 systolic. Patient reports that he felt fine prior to the episode at a convenience store today. Patient reports only history of diabetes and he denies any drug or alcohol abuse. Patient denies any headache, chest pain, abdominal pain, patient with no other complaints at this time. In the emergency department he had another episode of lethargy and altered consciousness and was intubated by ED attending for an airway protection. 07/21: Remains sedated, orally intubated on mechanical ventilation. 07/22: remains intubated and sedated. trop still rising, but now off pressors. d- dimer +, but no evidence of RV strain on echo. Objective Vital Signs Date Time Temp Pulse Resp B/P (MAP) Pulse Ox O2 Delivery O2 Flow Rate FiO2 07/22/17 08:04 100 40 07/22/17 08:00 92 07/22/17 08:00 14 128/71 (90) 07/22/17 04:00 98.9 07/20/17 23:16 Ventilator 07/20/17 19:50 6.00 Intake and Output 07/22/17 07/22/17 07/23/17 08:00 16:00 00:00 Intake Total 1426 ml Output Total 1100 ml Balance 326 ml Result Diagram: 07/22/1733907/22/17339 Imaging Last 24 hours Impressions Abdomen/Pelvis CT 07/20/172037 Signed Impressions: Service Date/Time: July 22:18 - CONCLUSION: 1. Mild amount of ascites seen around the liver. 2. Mild thickening of the gallbladder wall. This is nonspecific. Calcified gallstones are not seen. 3. Moderate distension of the urinary bladder. There is Naqvi catheter in the urinary bladder. Gary Ray MD Head CT 07/20/171946 Signed Impressions: Service Date/Time: July 22:14 - CONCLUSION: 1. No acute intracranial abnormality. 2. 2.8 cm hyperdense area seen in the superficial fat at the lower occipital/upper neck subcutaneous fat likely representing a hematoma. Gary Ray MD Chest X-Ray 07/20/171946 Signed Impressions: Service Date/Time: July 20:59 - CONCLUSION: ET tube, NG tube, and right internal jugular central line are all well placed. Gary Ray MD Objective Remarks GENERAL: Elderly appearing gentleman sedated and intubated SKIN: Warm and dry. HEAD: Normocephalic. EYES: No scleral icterus. No injection or drainage. NECK: trachea midline. No JVD CARDIOVASCULAR: Regular rate and rhythm. sinus by tele. RESPIRATORY: Breath sounds equal bilaterally. PRVC. fio2 40%. peep 5. GASTROINTESTINAL: Abdomen soft, non-tender, nondistended. MUSCULOSKELETAL: No cyanosis, or edema. NEURO EXAM: RASS -3. w/d x 4. does not follow commands. A/P Assessment and Plan Assessment: 61yM with NSTEMI, Acute hypoxic respiratory failure, syncope, bradycardia. Will need [facility] this admission. will work towards weaning sedation today. remains critically ill off pathway. Acute Hypoxic Respiratory failure - begin weaning and SBT - Vent bundle - prn nebs Sinus Bradycardia NSTEMI - Dopamine drip has been weaned off. - Cardiology consulted, - 2-D echo: normal LVEF - Elevated troponin consistent with non-ST elevation PR per cardiology. Timing of Cardiac catheterization per cardiology - Telemetry - Serial EKGs - trend troponins q8h until downtrending. Syncopal episode - CT head negative - Likely due to bradycardia, possible sick sinus syndrome, reportedly had slow A. fib on some telemetry strips per cardiology. - Ultrasound carotids - Further per cardiac workup Diabetes - Hold metformin due to lactic acidosis - Insulin sliding scale Lactic acidosis- improving. - Acute kidney injury - Mcclellan metformin - Monitor trend - IV fluid hydration Acute kidney injury- improving. - Unknown baseline - Strict I's and O - Monitor trend of creatinine and electrolytes DVT GI prophylaxis - Teds SCDs - Subcutaneous heparin and Pepcid Critical Care: The total critical care time was 41 minutes. Time to perform other separately billable procedures was not included in the critical care time. Tj Holman MD Jul 22, 2017 10:22
[2017-07-22] MEDS: HEPARIN-D5W 25,000 U/250 ML 250 ML IV PRN (10:58)
[2017-07-22] MEDS: SODIUM CHLOR 0.9% 1000 ML INJ 1,000 ML IV SCH ×2 (12:30→21:30)
[2017-07-23] VITALS (21 sets, daily range): BP systolic 115–124; BP diastolic 65–69; PULSE 85–107; RESP 14–16; TEMP 98.4–100.2; O2SAT 97–100
[2017-07-23] MEDS: RESP: ALBUTEROL 2.5 MG/IPRATROPIUM 0.5 MG NEB (SCH) INH ×4 (03:52→19:56)
[2017-07-23] MEDS: CHLORHEXIDINE GLUCONATE 2 % 1 PACK (2 CLOTHS) TOP SCH (04:00)
[2017-07-23 06:12] LABS: HEMATOCRIT 22.7 % (39.0-51.0); MEAN CELL VOLUME 94.7 FL (80.0-100.0); MEAN CORPUSCULAR HEMOGLOBIN 31.4 PG (27.0-34.0); MEAN CORPUSCULAR HGB CONC 33.1 % (32.0-36.0); PLATELET COUNT 126 TH/MM3 (150-450); RED BLOOD COUNT 2.39 MIL/MM3 (4.50-5.90); RED CELL DISTRIBUTION WIDTH 14.7 % (11.6-17.2); REVIEW FLAG FINAL; WHITE BLOOD COUNT 5.8 TH/MM3 (4.0-11.0)
[2017-07-23 06:18] LABS: POTASSIUM 3.7 MEQ/L (3.5-5.1)
[2017-07-23] MEDS: MIDAZOLAM 100 MG/100 ML INJ 100 ML IV PRN (06:24)
[2017-07-23] MEDS: fentaNYL DRIP 250 ML IV PRN (06:24)
[2017-07-23] MEDS: SODIUM CHLOR 0.9% 1000 ML INJ 1,000 ML IV SCH (06:28)
[2017-07-23 06:50] LABS: APTT (PATIENT) 64.4 SEC (24.3-30.1)
[2017-07-23] MEDS: INSULIN ASPART SUPPLEMENTAL SCALE SQ SCH ×4 (08:00→21:00)
--- NOTE | 2017-07-23 08:17 | HHI.CCPN ---
Subjective Remarks/Hospital Course 07/20: 61-year-old male who presents for evaluation of syncopal episode. As per EMS, patient was at convenience store today, reports that he felt lightheaded and dizzy and laid down on the ground. Patient reports that he became unconscious for a few minutes and then return to normal. When EMS arrived on scene, patient was bradycardic with a heart rate in the 30s with a junctional rhythm. Initial systolic blood pressure was in the 60s. Reports that her blood sugar was within normal limits. Patient then proceeded to vomit, heart rate and went to the 70s. After patient vomited, his blood pressure did go up to 90 systolic. Patient reports that he felt fine prior to the episode at a convenience store today. Patient reports only history of diabetes and he denies any drug or alcohol abuse. Patient denies any headache, chest pain, abdominal pain, patient with no other complaints at this time. In the emergency department he had another episode of lethargy and altered consciousness and was intubated by ED attending for an airway protection. 07/21: Remains sedated, orally intubated on mechanical ventilation. 07/22: remains intubated and sedated. trop still rising, but now off pressors. d- dimer +, but no evidence of RV strain on echo. 07/23: persistently agitated when aroused. HR increases, which increases myocardial oxygen demand. troponins downtrending, but after agitation, slightly uptrended. unable to follow commands and tolerated cpap due to agitation. Objective Vital Signs Date Time Temp Pulse Resp B/P (MAP) Pulse Ox O2 Delivery O2 Flow Rate FiO2 07/23/17 06:00 100 07/23/17 04:24 100 35 07/23/17 04:00 98.8 14 118/66 (83) 07/20/17 23:16 Ventilator 07/20/17 19:50 6.00 Intake and Output 07/23/17 07/23/17 07/24/17 08:00 16:00 00:00 Intake Total 1318 ml Output Total 1000 ml Balance 318 ml Result Diagram: 07/23/17 0300 07/23/17 0330 Other Results Microbiology Date/Time Source Procedure Growth Status 07/20/17 20:00 Urine Catheterized Urine Urine Culture - Final NO GROWTH IN 48 HOURS. Complete Imaging Last 24 hours Impressions Abdomen/Pelvis CT 07/20/172037 Signed Impressions: Service Date/Time: July 22:18 - CONCLUSION: 1. Mild amount of ascites seen around the liver. 2. Mild thickening of the gallbladder wall. This is nonspecific. Calcified gallstones are not seen. 3. Moderate distension of the urinary bladder. There is Naqvi catheter in the urinary bladder. Gary Ray MD Head CT 07/20/171946 Signed Impressions: Service Date/Time: July 22:14 - CONCLUSION: 1. No acute intracranial abnormality. 2. 2.8 cm hyperdense area seen in the superficial fat at the lower occipital/upper neck subcutaneous fat likely representing a hematoma. Gary Ray MD Chest X-Ray 07/20/171946 Signed Impressions: Service Date/Time: July 20:59 - CONCLUSION: ET tube, NG tube, and right internal jugular central line are all well placed. Gary Ray MD Objective Remarks GENERAL: Elderly appearing gentleman sedated and intubated SKIN: Warm and dry. HEAD: Normocephalic. EYES: No scleral icterus. No injection or drainage. NECK: trachea midline. No JVD CARDIOVASCULAR: Regular rate and rhythm. sinus by tele. RESPIRATORY: Breath sounds equal bilaterally. PRVC. fio2 40%. peep 5. GASTROINTESTINAL: Abdomen soft, non-tender, nondistended. MUSCULOSKELETAL: No cyanosis, or edema. NEURO EXAM: RASS -3. w/d x 4. does not follow commands. A/P Assessment and Plan Assessment: 61yM with NSTEMI, Acute hypoxic respiratory failure, syncope, bradycardia. Will need [facility] this admission. agitation is not only a barrier to successful weaning, but increasing myocardial oxygen demand and stressing the heart. will aggressively control both the HR and his agitation in attempt to wean him successfully from mechanical ventilation. remains critically ill off pathway. Agitated Delirium - life-threatening and causing increased myocardial oxygen demand - add scheduled oxycodone 10mg po q4h - add scheduled seroquel 100mg po q8h - add prn haldol 5mg iv q4h prn - once HR better controlled, will minimize propofol sedation - goal RASS -2. - will avoid precedex given recent bradycardia Acute Hypoxic Respiratory failure - begin weaning and SBT, though currently inhibited by agitation. - Vent bundle - prn nebs Sinus Bradycardia- resolved. NSTEMI Sinus Tachycardia secondary to agitation - Dopamine drip has been weaned off. - Cardiology consulted, - 2-D echo: normal LVEF - Elevated troponin consistent with non-ST elevation [place] per cardiology. Timing of Cardiac catheterization per cardiology - Telemetry - Serial EKGs - trend troponins q8h, currently downtrending. - will start metoprolol 5mg iv q4h scheduled, and breakthrough prn to control HR given that his troponins started to uptrend after he became agitated. will attempt to aggressively decrease myocardial oxygen demand to protect heart while we optimize his delirium. Syncopal episode - CT head negative - Likely due to bradycardia, possible sick sinus syndrome, reportedly had slow A. fib on some telemetry strips per cardiology. - Ultrasound carotids - Further per cardiac workup Diabetes - Hold metformin due to lactic acidosis - Insulin sliding scale Lactic acidosis- improving. - Acute kidney injury - Hold metformin - Monitor trend - IV fluid hydration Acute kidney injury- improving. - Unknown baseline - Strict I's and O - Monitor trend of creatinine and electrolytes DVT GI prophylaxis - Teds SCDs - Subcutaneous heparin and Pepcid Critical Care: The total critical care time was 38 minutes. Time to perform other separately billable procedures was not included in the critical care time. Tj Holman MD Jul 23, 2017 07:44
[2017-07-23] MEDS: PROPOFOL 1000 MG/100 ML INJ 100 ML IV PRN ×2 (08:21→22:27)
[2017-07-23] MEDS: FAMOTIDINE 20 MG/2 ML VIAL IV PUSH SCH ×2 (08:22→22:28)
[2017-07-23] MEDS: DOCUSATE SODIUM 50 MG/SENNA 8.6 MG TAB PO SCH ×2 (08:24→22:29)
[2017-07-23] MEDS: oxyCODONE HCL ORAL CONC 20 MG/ML SYRINGE PO SCH ×4 (08:24→22:28)
[2017-07-23] MEDS: QUEtiapine FUMARATE 100 MG TAB PO SCH ×3 (08:24→22:28)
[2017-07-23] MEDS: METOPROLOL TARTRATE 5 MG/5 ML VIAL IV PUSH SCH ×4 (08:25→22:28)
[2017-07-23] MEDS: ARTIFICIAL TEARS OPTH SOLN 15 ML BTL EACH EYE SCH ×3 (08:26→16:52)
[2017-07-23] MEDS: SODIUM CHLORIDE 0.9% FLUSH 10 ML FLUSH IV FLUSH SCH ×2 (08:26→22:28)
[2017-07-23] MEDS: METOPROLOL TARTRATE 5 MG/5 ML VIAL IV PUSH PRN ×3 (15:41→18:33)
[2017-07-23] MEDS: HEPARIN-D5W 25,000 U/250 ML 250 ML IV PRN (22:27)
[2017-07-24] VITALS (19 sets, daily range): BP systolic 114–144; BP diastolic 65–75; PULSE 87–124; RESP 9–15; TEMP 98.3–100.5; O2SAT 100
[2017-07-24] MEDS: fentaNYL DRIP 250 ML IV PRN (00:27)
[2017-07-24] MEDS: CHLORHEXIDINE GLUCONATE 2 % 1 PACK (2 CLOTHS) TOP SCH (04:00)
[2017-07-24] MEDS: RESP: ALBUTEROL 2.5 MG/IPRATROPIUM 0.5 MG NEB (SCH) INH ×4 (04:04→20:16)
[2017-07-24] MEDS: QUEtiapine FUMARATE 100 MG TAB PO SCH ×3 (05:54→22:11)
[2017-07-24] MEDS: INSULIN ASPART SUPPLEMENTAL SCALE SQ SCH ×4 (05:55→21:00)
[2017-07-24] MEDS: oxyCODONE HCL ORAL CONC 20 MG/ML SYRINGE PO SCH ×7 (05:55→23:59)
[2017-07-24] MEDS: METOPROLOL TARTRATE 5 MG/5 ML VIAL IV PUSH SCH ×6 (05:55→22:24)
[2017-07-24 07:40] LABS: HEMATOCRIT 23.9 % (39.0-51.0); MEAN CELL VOLUME 94.9 FL (80.0-100.0); MEAN CORPUSCULAR HEMOGLOBIN 30.9 PG (27.0-34.0); MEAN CORPUSCULAR HGB CONC 32.5 % (32.0-36.0); PLATELET COUNT 147 TH/MM3 (150-450); RED BLOOD COUNT 2.52 MIL/MM3 (4.50-5.90); RED CELL DISTRIBUTION WIDTH 14.4 % (11.6-17.2); REVIEW FLAG FINAL; WHITE BLOOD COUNT 6.6 TH/MM3 (4.0-11.0)
[2017-07-24 08:15] LABS: BICARBONATE 23.2 MEQ/L (21.0-32.0)
[2017-07-24] MEDS: ARTIFICIAL TEARS OPTH SOLN 15 ML BTL EACH EYE SCH ×3 (09:00→17:17)
--- NOTE | 2017-07-24 09:40 | PD.CARD.PN ---
Subjective Subjective Remarks Remains sedated and intubated. Off pressors. Very agitated when off sedation, Objective Vital Signs / I&O Vital Signs Date Time Temp Pulse Resp B/P (MAP) Pulse Ox O2 Delivery O2 Flow Rate FiO2 07/24/17 07:49 100 35 07/24/17 06:00 94 07/24/17 04:45 100 35 07/24/17 04:00 98.4 94 14 135/74 (94) 100 07/24/17 04:00 35 07/24/17 04:00 94 07/24/17 02:00 106 07/24/17 01:18 100 35 07/24/17 00:00 35 07/24/17 00:00 106 07/24/17 00:00 98.7 91 15 131/75 (93) 100 07/23/17 22:11 100 35 07/23/17 22:00 106 07/23/17 20:00 100.2 106 15 120/66 (84) 100 07/23/17 20:00 35 07/23/17 20:00 106 07/23/17 19:56 100 35 07/23/17 18:00 95 07/23/17 16:52 100 35 07/23/17 16:00 35 07/23/17 16:00 98.4 96 14 115/65 (82) 100 07/23/17 16:00 95 07/23/17 14:00 103 07/23/17 12:49 100 35 07/23/17 12:00 35 07/23/17 12:00 98.6 107 16 121/69 (86) 100 07/23/17 12:00 107 07/23/17 10:49 100 35 07/23/17 10:47 35 07/23/17 10:00 85 I/O 07/23/17 07/23/17 07/23/17 07/24/17 07/24/17 07/24/17 07:00 15:00 23:00 07:00 15:00 23:00 Intake Total 1318 ml 621.5 ml 447 ml Output Total 1000 ml 900 ml 1100 ml Balance 318 ml -900 ml 621.5 ml -653 ml Intake Oral 0 ml IV Total 1318 ml 621.5 ml 447 ml Output Urine Total 1000 ml 900 ml 1100 ml Bladder Scan Volume Amount 800 ml # Voids 0 # Bowel Movements 0 0 Physical Exam Lungs clear RRR sinus tach Laboratory Laboratory Tests Test 07/24/17 05:40 White Blood Count 6.6 TH/MM3 Red Blood Count 2.52 MIL/MM3 Hemoglobin 7.8 GM/DL Hematocrit 23.9 % Mean Corpuscular Volume 94.9 FL Mean Corpuscular Hemoglobin 30.9 PG Mean Corpuscular Hemoglobin Concent 32.5 % Red Cell Distribution Width 14.4 % Platelet Count 147 TH/MM3 Mean Platelet Volume 9.7 FL Blood Urea Nitrogen 8 MG/DL Creatinine 1.15 MG/DL Random Glucose 87 MG/DL Calcium Level 8.6 MG/DL Sodium Level 145 MEQ/L Potassium Level 5.0 MEQ/L Chloride Level 112 MEQ/L Carbon Dioxide Level 23.2 MEQ/L Anion Gap 10 MEQ/L Estimat Glomerular Filtration Rate 78 ML/MIN Assessment and Plan Assessment and Plan CV stable. By enzymes has a completed RI with preserved LV function per echo. HR elevated and BP stable. Will try metoprolol 50 mg bid. Consider cath once extubated and agitation subsides Esvin Ron MD Jul 24, 2017 09:40
[2017-07-24] MEDS: SODIUM CHLORIDE 0.9% FLUSH 10 ML FLUSH IV FLUSH SCH ×2 (09:53→22:11)
[2017-07-24] MEDS: DOCUSATE SODIUM 50 MG/SENNA 8.6 MG TAB PO SCH ×2 (09:53→22:11)
[2017-07-24] MEDS: FAMOTIDINE 20 MG/2 ML VIAL IV PUSH SCH ×2 (09:53→22:11)
[2017-07-24] MEDS: METOPROLOL TARTRATE 50 MG TAB PO SCH ×2 (10:00→22:11)
[2017-07-24] MEDS: PROPOFOL 1000 MG/100 ML INJ 100 ML IV PRN ×3 (10:12→22:11)
[2017-07-24 14:16] LABS: APTT (PATIENT) 53.1 SEC (24.3-30.1)
--- NOTE | 2017-07-24 20:06 | HHI.CCPN ---
Subjective Remarks/Hospital Course 07/20: 61-year-old male who presents for evaluation of syncopal episode. As per EMS, patient was at convenience store today, reports that he felt lightheaded and dizzy and laid down on the ground. Patient reports that he became unconscious for a few minutes and then return to normal. When EMS arrived on scene, patient was bradycardic with a heart rate in the 30s with a junctional rhythm. Initial systolic blood pressure was in the 60s. Reports that her blood sugar was within normal limits. Patient then proceeded to vomit, heart rate and went to the 70s. After patient vomited, his blood pressure did go up to 90 systolic. Patient reports that he felt fine prior to the episode at a convenience store today. Patient reports only history of diabetes and he denies any drug or alcohol abuse. Patient denies any headache, chest pain, abdominal pain, patient with no other complaints at this time. In the emergency department he had another episode of lethargy and altered consciousness and was intubated by ED attending for an airway protection. 07/21: Remains sedated, orally intubated on mechanical ventilation. 07/22: remains intubated and sedated. trop still rising, but now off pressors. d- dimer +, but no evidence of RV strain on echo. 07/23: persistently agitated when aroused. HR increases, which increases myocardial oxygen demand. troponins downtrending, but after agitation, slightly uptrended. unable to follow commands and tolerated cpap due to agitation. 07/24: Sedated, orally intubated on mechanical ventilation. Failed C Pap trial today with apneic episodes. On propofol, fentanyl will be discontinued. Objective Vital Signs Date Time Temp Pulse Resp B/P (MAP) Pulse Ox O2 Delivery O2 Flow Rate FiO2 07/24/17 18:00 93 07/24/17 16:00 99.0 14 114/65 (81) 100 07/24/17 16:00 35 07/20/17 23:16 Ventilator 07/20/17 19:50 6.00 Intake and Output 07/24/17 07/24/17 07/25/17 08:00 16:00 00:00 Intake Total 447 ml 139 ml Output Total 1100 ml 1750 ml Balance -653 ml -1611 ml Result Diagram: 07/24/17 0540 07/24/17 0540 Imaging Last 24 hours Impressions Abdomen/Pelvis CT 07/20/172037 Signed Impressions: Service Date/Time: July 22:18 - CONCLUSION: 1. Mild amount of ascites seen around the liver. 2. Mild thickening of the gallbladder wall. This is nonspecific. Calcified gallstones are not seen. 3. Moderate distension of the urinary bladder. There is Naqvi catheter in the urinary bladder. Gary Ray MD Head CT 07/20/171946 Signed Impressions: Service Date/Time: , July 20, 2017 22:14 - CONCLUSION: 1. No acute intracranial abnormality. 2. 2.8 cm hyperdense area seen in the superficial fat at the lower occipital/upper neck subcutaneous fat likely representing a hematoma. Gary Ray MD Chest X-Ray 07/20/171946 Signed Impressions: Service Date/Time: July 20:59 - CONCLUSION: ET tube, NG tube, and right internal jugular central line are all well placed. Gary Ray MD Objective Remarks GENERAL: Elderly appearing gentleman sedated and intubated SKIN: Warm and dry. HEAD: Normocephalic. EYES: No scleral icterus. No injection or drainage. NECK: trachea midline. No JVD CARDIOVASCULAR: Regular rate and rhythm. sinus by tele. RESPIRATORY: Breath sounds equal bilaterally. PRVC. fio2 40%. peep 5. GASTROINTESTINAL: Abdomen soft, non-tender, nondistended. MUSCULOSKELETAL: No cyanosis, or edema. NEURO EXAM: RASS -3. w/d x 4. does not follow commands. A/P Assessment and Plan Assessment: 61yM with NSTEMI, Acute hypoxic respiratory failure, syncope, bradycardia. Will need [facility] this admission. agitation is not only a barrier to successful weaning, but increasing myocardial oxygen demand and stressing the heart. will aggressively control both the HR and his agitation in attempt to wean him successfully from mechanical ventilation. remains critically ill off pathway. Agitated Delirium - life-threatening and causing increased myocardial oxygen demand - add scheduled oxycodone 10mg po q4h - add scheduled seroquel 100mg po q8h - add prn haldol 5mg iv q4h prn - once HR better controlled, will minimize propofol sedation - goal RASS -2. - will avoid precedex given recent bradycardia Acute Hypoxic Respiratory failure - begin weaning and SBT, though currently inhibited by agitation. - Vent bundle - prn nebs Sinus Bradycardia- resolved. NSTEMI Sinus Tachycardia secondary to agitation - Dopamine drip has been weaned off. - Cardiology consulted, - 2-D echo: normal LVEF - Elevated troponin consistent with non-ST elevation RI per cardiology. Timing of Cardiac catheterization per cardiology - Telemetry - Serial EKGs - trend troponins q8h, currently downtrending. - will start metoprolol 5mg iv q4h scheduled, and breakthrough prn to control HR given that his troponins started to uptrend after he became agitated. will attempt to aggressively decrease myocardial oxygen demand to protect heart while we optimize his delirium. Syncopal episode - CT head negative - Likely due to bradycardia, possible sick sinus syndrome, reportedly had slow A. fib on some telemetry strips per cardiology. - Ultrasound carotids - Further per cardiac workup Diabetes - Hold metformin due to lactic acidosis - Insulin sliding scale Lactic acidosis- improving. - Acute kidney injury - Hold metformin - Monitor trend - IV fluid hydration Acute kidney injury- improving. - Unknown baseline - Strict I's and O - Monitor trend of creatinine and electrolytes DVT GI prophylaxis - Teds SCDs - Subcutaneous heparin and Pepcid Critical Care: The total critical care time was 35 minutes. Time to perform other separately billable procedures was not included in the critical care time. Stef Gross MD Jul 24, 2017 20:06
[2017-07-25] VITALS (18 sets, daily range): BP systolic 115–149; BP diastolic 58–81; PULSE 92–127; RESP 14–25; TEMP 97.9–100.6; O2SAT 93–100
[2017-07-25] MEDS: PROPOFOL 1000 MG/100 ML INJ 100 ML IV PRN ×2 (01:53→06:47)
[2017-07-25] MEDS: CHLORHEXIDINE GLUCONATE 2 % 1 PACK (2 CLOTHS) TOP SCH (04:00)
[2017-07-25] MEDS: oxyCODONE HCL ORAL CONC 20 MG/ML SYRINGE PO SCH ×5 (04:06→22:43)
[2017-07-25] MEDS: METOPROLOL TARTRATE 5 MG/5 ML VIAL IV PUSH SCH ×6 (04:06→21:20)
[2017-07-25] MEDS: QUEtiapine FUMARATE 100 MG TAB PO SCH ×3 (05:02→21:21)
[2017-07-25 05:56] LABS: APTT (PATIENT) 31.8 SEC (24.3-30.1)
[2017-07-25 06:06] LABS: BICARBONATE 23.4 MEQ/L (21.0-32.0); POTASSIUM 4.2 MEQ/L (3.5-5.1)
[2017-07-25 06:39] LABS: HEMATOCRIT 21.7 % (39.0-51.0); MEAN CELL VOLUME 93.2 FL (80.0-100.0); MEAN CORPUSCULAR HEMOGLOBIN 31.1 PG (27.0-34.0); MEAN CORPUSCULAR HGB CONC 33.4 % (32.0-36.0); PLATELET COUNT 150 TH/MM3 (150-450); RED BLOOD COUNT 2.33 MIL/MM3 (4.50-5.90); REVIEW FLAG FINAL; WHITE BLOOD COUNT 7.6 TH/MM3 (4.0-11.0)
[2017-07-25] MEDS: INSULIN ASPART SUPPLEMENTAL SCALE SQ SCH ×4 (08:00→21:00)
[2017-07-25] MEDS: FAMOTIDINE 20 MG/2 ML VIAL IV PUSH SCH ×2 (09:19→21:21)
[2017-07-25] MEDS: SODIUM CHLORIDE 0.9% FLUSH 10 ML FLUSH IV FLUSH SCH ×2 (09:19→21:20)
[2017-07-25] MEDS: DOCUSATE SODIUM 50 MG/SENNA 8.6 MG TAB PO SCH ×2 (09:19→21:00)
[2017-07-25] MEDS: METOPROLOL TARTRATE 50 MG TAB PO SCH ×2 (09:20→21:00)
[2017-07-25] MEDS: HEPARIN-D5W 25,000 U/250 ML 250 ML IV PRN (09:40)
[2017-07-25] MEDS: ARTIFICIAL TEARS OPTH SOLN 15 ML BTL EACH EYE SCH ×2 (12:12→17:24)
--- NOTE | 2017-07-25 13:39 | HHI.CCPN ---
Subjective Remarks/Hospital Course 07/20: 61-year-old male who presents for evaluation of syncopal episode. As per EMS, patient was at convenience store today, reports that he felt lightheaded and dizzy and laid down on the ground. Patient reports that he became unconscious for a few minutes and then return to normal. When EMS arrived on scene, patient was bradycardic with a heart rate in the 30s with a junctional rhythm. Initial systolic blood pressure was in the 60s. Reports that her blood sugar was within normal limits. Patient then proceeded to vomit, heart rate and went to the 70s. After patient vomited, his blood pressure did go up to 90 systolic. Patient reports that he felt fine prior to the episode at a convenience store today. Patient reports only history of diabetes and he denies any drug or alcohol abuse. Patient denies any headache, chest pain, abdominal pain, patient with no other complaints at this time. In the emergency department he had another episode of lethargy and altered consciousness and was intubated by ED attending for an airway protection. 07/21: Remains sedated, orally intubated on mechanical ventilation. 07/22: remains intubated and sedated. trop still rising, but now off pressors. d- dimer +, but no evidence of RV strain on echo. 07/23: persistently agitated when aroused. HR increases, which increases myocardial oxygen demand. troponins downtrending, but after agitation, slightly uptrended. unable to follow commands and tolerated cpap due to agitation. 07/24: Sedated, orally intubated on mechanical ventilation. Failed C Pap trial today with apneic episodes. On propofol, fentanyl will be discontinued. 07/25: Arousable off sedation and following commands. Tolerated C Pap trial and extubated to nasal cannula Objective Vital Signs Date Time Temp Pulse Resp B/P (MAP) Pulse Ox O2 Delivery O2 Flow Rate FiO2 07/25/17 13:12 99 Nasal Cannula 3 07/25/17 11:50 35 07/25/17 06:00 93 07/25/17 04:00 99.5 15 136/75 (95) Intake and Output 07/25/17 07/25/17 07/26/17 08:00 16:00 00:00 Intake Total 152.6 ml 32 ml Output Total 1200 ml Balance -1047.4 ml 32 ml Result Diagram: 07/25/17 0531 07/25/17 0531 Imaging Last 24 hours Impressions Abdomen/Pelvis CT 07/20/172037 Signed Impressions: Service Date/Time: July 22:18 - CONCLUSION: 1. Mild amount of ascites seen around the liver. 2. Mild thickening of the gallbladder wall. This is nonspecific. Calcified gallstones are not seen. 3. Moderate distension of the urinary bladder. There is Naqvi catheter in the urinary bladder. Gary Ray MD Head CT 07/20/171946 Signed Impressions: Service Date/Time: July 22:14 - CONCLUSION: 1. No acute intracranial abnormality. 2. 2.8 cm hyperdense area seen in the superficial fat at the lower occipital/upper neck subcutaneous fat likely representing a hematoma. Gary Ray MD Chest X-Ray 07/20/171946 Signed Impressions: Service Date/Time: July 20:59 - CONCLUSION: ET tube, NG tube, and right internal jugular central line are all well placed. Gary Ray MD Objective Remarks GENERAL: Elderly appearing gentleman lying in bed, orally intubated on mechanical ventilation at the time of my evaluation SKIN: Warm and dry. HEAD: Normocephalic. EYES: No scleral icterus. No injection or drainage. NECK: trachea midline. No JVD CARDIOVASCULAR: Regular rate and rhythm. sinus by tele. RESPIRATORY: Breath sounds equal bilaterally. PRVC. fio2 40%. peep 5. GASTROINTESTINAL: Abdomen soft, non-tender, nondistended. MUSCULOSKELETAL: No cyanosis, or edema. NEURO EXAM: Arousable off sedation, orally intubated, moving all 4 extremities at the time of my evaluation A/P Assessment and Plan Assessment: 61yM with NSTEMI, Acute hypoxic respiratory failure, syncope, bradycardia. Will need C this admission. agitation is not only a barrier to successful weaning, but increasing myocardial oxygen demand and stressing the heart. will aggressively control both the HR and his agitation in attempt to wean him successfully from mechanical ventilation. remains critically ill off pathway. Agitated Delirium - life-threatening and causing increased myocardial oxygen demand - scheduled oxycodone 10mg po q4h - scheduled seroquel 100mg po q8h - prn haldol 5mg iv q4h prn - Propofol for sedation with daily sedation vacation. -Held sedation and patient subsequently extubated 07/25 - will avoid precedex given recent bradycardia Acute Hypoxic Respiratory failure -Tolerated C Pap trial and extubated to nasal cannula on 07/25 - prn nebs Sinus Bradycardia- resolved. NSTEMI Sinus Tachycardia secondary to agitation - Dopamine drip has been weaned off. - Cardiology consulted, - 2-D echo: normal LVEF - Elevated troponin consistent with non-ST elevation VT per cardiology. Timing of Cardiac catheterization per cardiology - Telemetry - Serial EKGs - trend troponins q8h, currently downtrending. - will start metoprolol 5mg iv q4h scheduled, and breakthrough prn to control HR given that his troponins started to uptrend after he became agitated. will attempt to aggressively decrease myocardial oxygen demand to protect heart while we optimize his delirium. Syncopal episode - CT head negative - Likely due to bradycardia, possible sick sinus syndrome, reportedly had slow A. fib on some telemetry strips per cardiology. - Ultrasound carotids - Further per cardiac workup Diabetes - Hold metformin due to lactic acidosis - Insulin sliding scale Lactic acidosis- improving. - Acute kidney injury - Hold metformin - Monitor trend - IV fluid hydration Acute kidney injury- improving. - Unknown baseline - Strict I's and O - Monitor trend of creatinine and electrolytes DVT GI prophylaxis - Teds SCDs - Subcutaneous heparin and Pepcid Stef Gross MD Jul 25, 2017 13:39
[2017-07-25] MEDS ORDERED: SODIUM CHLOR 0.9% 250 ML INJ 250 ML IV ONE (14:00)
--- NOTE | 2017-07-25 14:14 | RADRPT ---
EXAM DATE/TIME: 07/25/2017 13:52 [facility] COMPARISON: CHEST SINGLE AP, July 21, 2017, 3:51. INDICATIONS : Follow up respiratory failure. MEDICAL HISTORY : Diabetes mellitus type II. SURGICAL HISTORY : None. ENCOUNTER: Subsequent ACUITY: 3 days PAIN SCORE: 0/10 LOCATION: Bilateral chest FINDINGS: Endotracheal and nasogastric tubes have been removed. Lungs remain hypoaerated with bibasilar airspace disease. There is increasing airspace disease in the right base. Right jugular central line remains in stable position. Heart and mediastinal structures are stable. CONCLUSION: 1. Increasing airspace disease right lung base 2. Status post extubation 3. Otherwise stable chest. Jorge Shaver MD on July 25, 2017 at 14:11 Board Certified Radiologist. This report was verified electronically.
[2017-07-25 17:07] LABS: APTT (PATIENT) 33.3 SEC (24.3-30.1)
[2017-07-25] MEDS: HALOPERIDOL LACTATE 5 MG/ML AMP IV PRN (17:17)
[2017-07-25] MEDS: METOPROLOL TARTRATE 5 MG/5 ML VIAL IV PUSH PRN ×4 (17:32→22:53)
[2017-07-26] VITALS (18 sets, daily range): BP systolic 133–153; BP diastolic 85–100; PULSE 97–126; RESP 15–33; TEMP 97.9–99.7; O2SAT 96–100
[2017-07-26] MEDS: METOPROLOL TARTRATE 5 MG/5 ML VIAL IV PUSH SCH ×6 (00:02→22:04)
[2017-07-26] MEDS: oxyCODONE HCL ORAL CONC 20 MG/ML SYRINGE PO SCH ×6 (00:03→23:31)
[2017-07-26 01:44] LABS: HEMATOCRIT 25.5 % (39.0-51.0); REVIEW FLAG FINAL
[2017-07-26] MEDS: METOPROLOL TARTRATE 5 MG/5 ML VIAL IV PUSH PRN ×3 (01:51→23:43)
[2017-07-26] MEDS: HALOPERIDOL LACTATE 5 MG/ML AMP IV PRN ×2 (01:51→05:27)
[2017-07-26 01:55] LABS: APTT (PATIENT) 48.8 SEC (24.3-30.1)
[2017-07-26] MEDS ORDERED: METOPROLOL TARTRATE 5 MG/5 ML VIAL IV PUSH ONE (03:05)
[2017-07-26] MEDS: CHLORHEXIDINE GLUCONATE 2 % 1 PACK (2 CLOTHS) TOP SCH (04:00)
[2017-07-26 04:19] LABS: HEMATOCRIT 24.9 % (39.0-51.0); MEAN CELL VOLUME 90.8 FL (80.0-100.0); MEAN CORPUSCULAR HEMOGLOBIN 30.1 PG (27.0-34.0); MEAN CORPUSCULAR HGB CONC 33.1 % (32.0-36.0); PLATELET COUNT 164 TH/MM3 (150-450); RED BLOOD COUNT 2.74 MIL/MM3 (4.50-5.90); RED CELL DISTRIBUTION WIDTH 15.7 % (11.6-17.2); REVIEW FLAG FINAL; WHITE BLOOD COUNT 7.8 TH/MM3 (4.0-11.0)
[2017-07-26 04:42] LABS: BICARBONATE 19.2 MEQ/L (21.0-32.0); POTASSIUM 3.7 MEQ/L (3.5-5.1)
[2017-07-26] MEDS ORDERED: METOPROLOL TARTRATE 5 MG/5 ML VIAL IV PUSH SCH (05:00)
[2017-07-26] MEDS: QUEtiapine FUMARATE 100 MG TAB PO SCH ×3 (05:27→22:00)
[2017-07-26] MEDS: INSULIN ASPART SUPPLEMENTAL SCALE SQ SCH ×4 (08:00→21:00)
--- NOTE | 2017-07-26 08:09 | PD.CARD.PN ---
Subjective Subjective Remarks patient is extubated and sedated. staff states he is arousable and appropriate. Objective Medications Current Medications Medications (Trade) Dose Ordered Sig/Omero Route Start Time Stop Time Status Last Admin (NS Flush) 2 ml UNSCH PRN IV FLUSH 07/20/17 22:45 (NS Flush) 2 ml BID IV FLUSH 07/21/17 09:00 07/25/17 21:20 (Tylenol) 650 mg Q6H PRN PO 07/20/17 22:45 (Wayan 5-325 Mg) 1 tab Q4H PRN PO 07/20/17 22:45 (Morphine Inj) 2 mg Q2H PRN IV PUSH 07/20/17 22:45 (Tears Naturale Opth Soln) 1 drop TID EACH EYE 07/21/17 09:00 07/24/17 17:17 (Zofran Inj) 4 mg Q6H PRN IV PUSH 07/20/17 22:45 (Duoneb Neb) 1 ampule Q2HR NEB PRN INH 07/20/17 22:45 07/25/17 13:55 Miscellaneous Information 1 Q361D XX 07/20/17 22:45 (Chlorhexidine 2% Cloth) Taper DAILY@04 TOP 07/21/17 04:00 07/17/18 03:59 07/25/17 04:00 (Chlorhexidine 2% Cloth) 3 pack UNSCH PRN TOP 07/20/17 22:45 (Pema-Colace) 1 tab BID PO 07/21/17 09:00 07/25/17 09:19 (Milk Of Magnesia Liq) 30 ml Q12H PRN PO 07/20/17 22:45 (Senokot) 17.2 mg Q12H PRN PO 07/20/17 22:45 07/22/17 21:30 (Dulcolax Supp) 10 mg DAILY PRN RECTAL 07/20/17 22:45 (Lactulose Liq) 30 ml DAILY PRN PO 07/20/17 22:45 (D50w (Vial) Inj) 50 ml UNSCH PRN IV PUSH 07/21/17 00:30 07/23/17 06:28 (Glucagon Inj) 1 mg UNSCH PRN OTHER 07/21/17 00:30 (NovoLOG SUPPLEMENTAL SCALE) 1 ACHS SLIDING SCALE SQ 07/21/17 08:00 Heparin Sodium/ Dextrose 250 ml @ 9 mls/hr TITRATE PRN IV 07/21/17 04:30 07/25/17 09:40 (Pepcid Inj) 20 mg Q12HR IV PUSH 07/22/17 21:00 07/25/17 21:21 Propofol 100 ml @ 2.22 mls/hr TITRATE PRN IV 07/23/17 07:45 07/25/17 06:47 (SEROquel) 100 mg Q8HR PO 07/23/17 07:45 07/25/17 12:11 (Lopressor Inj) 5 mg Q5M PRN IV PUSH 07/23/17 07:45 07/26/17 01:51 (Roxicodone Intensol Liq) 10 mg Q4H PO 07/23/17 08:00 07/26/17 03:17 (Haldol Inj) 5 mg Q4H PRN IV 07/23/17 07:45 07/26/17 05:27 (Lopressor) 50 mg Q12HR PO 07/24/17 10:00 07/25/17 09:20 (Lopressor Inj) 10 mg Q4H IV PUSH 07/26/17 05:00 07/26/17 05:27 Vital Signs / I&O Vital Signs Date Time Temp Pulse Resp B/P (MAP) Pulse Ox O2 Delivery O2 Flow Rate FiO2 07/26/17 07:36 100 21 07/26/17 06:00 103 07/26/17 04:50 27 07/26/17 04:00 99.5 110 21 133/85 (101) 07/26/17 04:00 110 07/26/17 02:00 112 07/26/17 00:00 99.7 126 33 146/85 (105) 97 07/26/17 00:00 126 07/25/17 22:19 100.6 123 25 115/77 93 07/25/17 22:00 121 07/25/17 21:53 100.5 121 25 126/77 93 07/25/17 20:00 99.4 123 22 120/74 (89) 98 07/25/17 20:00 123 07/25/17 19:36 96 21 07/25/17 18:00 119 07/25/17 16:00 98.7 127 24 121/58 (79) 100 07/25/17 16:00 127 07/25/17 14:00 118 07/25/17 13:12 99 Nasal Cannula 3 07/25/17 13:12 99 Nasal Cannula 3.00 07/25/17 12:00 35 07/25/17 12:00 99.1 108 16 149/81 (103) 100 07/25/17 12:00 108 07/25/17 11:50 100 35 07/25/17 10:00 106 07/25/17 09:25 35 07/25/17 08:11 100 35 I/O 07/25/17 07/25/17 07/25/17 07/26/17 07/26/17 07/26/17 07:00 15:00 23:00 07:00 15:00 23:00 Intake Total 152.6 ml 77 ml 96 ml 373 ml Output Total 1200 ml 875 ml 345 ml Balance -1047.4 ml 77 ml -779 ml 28 ml IV Total 152.6 ml 77 ml 81 ml 108 ml Packed Cells 250 ml Blood Product IV Normal Saline Flush 15 ml 15 ml Output Urine Total 1200 ml 875 ml 345 ml # Bowel Movements 0 0 Physical Exam HEAD: Atraumatic. Normocephalic. EYES: Pupils equal and round. No scleral icterus. No injection or drainage. ENT: No nasal bleeding or discharge. Mucous membranes pink and moist. NECK: Trachea midline. No JVD. CARDIOVASCULAR: Regular rate and rhythm. No murmur RESPIRATORY: No accessory muscle use. Clear to auscultation. Breath sounds equal bilaterally. GASTROINTESTINAL: Abdomen soft, non-tender, nondistended. Hepatic and splenic margins not palpable. MUSCULOSKELETAL: Extremities without clubbing, cyanosis, or edema. No obvious deformities. NEUROLOGICAL: sedated. Laboratory Laboratory Tests Test 07/25/17 16:17 07/26/17 01:14 07/26/17 03:21 Activated Partial Thromboplast Time 33.3 SEC 48.8 SEC Hemoglobin 8.4 GM/DL 8.3 GM/DL Hematocrit 25.5 % 24.9 % White Blood Count 7.8 TH/MM3 Red Blood Count 2.74 MIL/MM3 Mean Corpuscular Volume 90.8 FL Mean Corpuscular Hemoglobin 30.1 PG Mean Corpuscular Hemoglobin Concent 33.1 % Red Cell Distribution Width 15.7 % Platelet Count 164 TH/MM3 Mean Platelet Volume 9.1 FL Blood Urea Nitrogen 12 MG/DL Creatinine 1.22 MG/DL Random Glucose 150 MG/DL Calcium Level 8.8 MG/DL Sodium Level 143 MEQ/L Potassium Level 3.7 MEQ/L Chloride Level 110 MEQ/L Carbon Dioxide Level 19.2 MEQ/L Anion Gap 14 MEQ/L Estimat Glomerular Filtration Rate 73 ML/MIN Assessment and Plan Problem List: (1) NSTEMI (non-ST elevated myocardial infarction) ICD Codes: I21.4 - Non-ST elevation (NSTEMI) myocardial infarction Status: Acute (2) Bradycardia ICD Codes: R00.1 - Bradycardia, unspecified Status: Acute Assessment and Plan 61 yo M admitted after syncope and acute respiratory failure. He is now extubated, sedated and appropriate. NSTEMI- HR decreasing, SBP stable. preserved LV function per echo. will likely plan for cardiac catheterization tomorrow. Brooke Caban Jul 26, 2017 08:09
[2017-07-26] MEDS: FAMOTIDINE 20 MG/2 ML VIAL IV PUSH SCH ×2 (08:49→22:04)
[2017-07-26] MEDS: SODIUM CHLORIDE 0.9% FLUSH 10 ML FLUSH IV FLUSH SCH ×2 (08:50→22:04)
[2017-07-26] MEDS: ARTIFICIAL TEARS OPTH SOLN 15 ML BTL EACH EYE SCH ×3 (08:53→17:32)
[2017-07-26] MEDS: METOPROLOL TARTRATE 50 MG TAB PO SCH ×4 (08:53→22:00)
[2017-07-26] MEDS: DOCUSATE SODIUM 50 MG/SENNA 8.6 MG TAB PO SCH ×2 (08:53→21:00)
[2017-07-26 09:12] LABS: APTT (PATIENT) 49.3 SEC (24.3-30.1)
[2017-07-26] MEDS ORDERED: SODIUM CHLOR 0.9% 250 ML INJ 250 ML IV ONE (13:15)
--- NOTE | 2017-07-26 13:29 | HHI.CCPN ---
Subjective Remarks/Hospital Course 07/20: 61-year-old male who presents for evaluation of syncopal episode. As per EMS, patient was at convenience store today, reports that he felt lightheaded and dizzy and laid down on the ground. Patient reports that he became unconscious for a few minutes and then return to normal. When EMS arrived on scene, patient was bradycardic with a heart rate in the 30s with a junctional rhythm. Initial systolic blood pressure was in the 60s. Reports that her blood sugar was within normal limits. Patient then proceeded to vomit, heart rate and went to the 70s. After patient vomited, his blood pressure did go up to 90 systolic. Patient reports that he felt fine prior to the episode at a convenience store today. Patient reports only history of diabetes and he denies any drug or alcohol abuse. Patient denies any headache, chest pain, abdominal pain, patient with no other complaints at this time. In the emergency department he had another episode of lethargy and altered consciousness and was intubated by ED attending for an airway protection. 07/21: Remains sedated, orally intubated on mechanical ventilation. 07/22: remains intubated and sedated. trop still rising, but now off pressors. d- dimer +, but no evidence of RV strain on echo. 07/23: persistently agitated when aroused. HR increases, which increases myocardial oxygen demand. troponins downtrending, but after agitation, slightly uptrended. unable to follow commands and tolerated cpap due to agitation. 07/24: Sedated, orally intubated on mechanical ventilation. Failed C Pap trial today with apneic episodes. On propofol, fentanyl will be discontinued. 07/25: Arousable off sedation and following commands. Tolerated C Pap trial and extubated to nasal cannula 07/25: Awake and alert. Knows he is in the hospital. Extubated yesterday and on nasal cannula currently. Appears comfortable. Hemoglobin 8.3, will stop heparin and order 1 unit PRBCs in view of recent non-STEMI. Awaiting cardiac catheterization by cardiology. Objective Vital Signs Date Time Temp Pulse Resp B/P (MAP) Pulse Ox O2 Delivery O2 Flow Rate FiO2 07/26/17 10:00 103 07/26/17 09:25 18 07/26/17 07:36 100 21 07/26/17 04:00 99.5 133/85 (101) 07/25/17 13:12 Nasal Cannula 3 Intake and Output 07/26/17 07/26/17 07/27/17 08:00 16:00 00:00 Intake Total 373 ml Output Total 345 ml Balance 28 ml Result Diagram: 07/26/17 0321 07/26/17 0321 Imaging Last 24 hours Impressions Abdomen/Pelvis CT 07/20/172037 Signed Impressions: Service Date/Time: July 22:18 - CONCLUSION: 1. Mild amount of ascites seen around the liver. 2. Mild thickening of the gallbladder wall. This is nonspecific. Calcified gallstones are not seen. 3. Moderate distension of the urinary bladder. There is Naqvi catheter in the urinary bladder. Gary Ray MD Head CT 07/20/171946 Signed Impressions: Service Date/Time: July 22:14 - CONCLUSION: 1. No acute intracranial abnormality. 2. 2.8 cm hyperdense area seen in the superficial fat at the lower occipital/upper neck subcutaneous fat likely representing a hematoma. Gary Ray MD Chest X-Ray 07/20/171946 Signed Impressions: Service Date/Time: July 20:59 - CONCLUSION: ET tube, NG tube, and right internal jugular central line are all well placed. Gary Ray MD Objective Remarks GENERAL: Elderly appearing gentleman lying in bed, comfortable on nasal cannula at the time of my evaluation SKIN: Warm and dry. HEAD: Normocephalic. EYES: No scleral icterus. No injection or drainage. NECK: trachea midline. No JVD CARDIOVASCULAR: Regular rate and rhythm. sinus by tele. RESPIRATORY: Breath sounds equal bilaterally. No wheezing or crackles GASTROINTESTINAL: Abdomen soft, non-tender, nondistended. MUSCULOSKELETAL: No cyanosis, or edema. NEURO EXAM: Awake and alert, following commands. Moving all 4 extremities. A/P Assessment and Plan Assessment: 61yM with NSTEMI, Acute hypoxic respiratory failure, syncope, bradycardia. Will need [facility] this admission. agitation is not only a barrier to successful weaning, but increasing myocardial oxygen demand and stressing the heart. will aggressively control both the HR and his agitation in attempt to wean him successfully from mechanical ventilation. remains critically ill off pathway. Agitated Delirium - life-threatening and causing increased myocardial oxygen demand - scheduled oxycodone 10mg po q4h - scheduled seroquel 100mg po q8h - prn haldol 5mg iv q4h prn -Off propofol since 07/25 -extubated 07/25 - will avoid precedex given recent bradycardia Acute Hypoxic Respiratory failure -Tolerated C Pap trial and extubated to nasal cannula on 07/25 - prn nebs Sinus Bradycardia- resolved. NSTEMI Sinus Tachycardia secondary to agitation - Dopamine drip has been weaned off. - Cardiology consulted, Dr. Ron following and planning cardiac catheterization on 07/27 - 2-D echo: normal LVEF - Elevated troponin consistent with non-ST elevation MA per cardiology. Timing of Cardiac catheterization per cardiology - Stop heparin GTT, aspirin 324 mg by mouth now and then 81 mg by mouth daily. - trend troponins q8h, currently downtrending. -Continue metoprolol scheduled, will transition to by mouth from IV, and breakthrough prn to control HR given that his troponins started to uptrend after he became agitated. will attempt to aggressively decrease myocardial oxygen demand to protect heart while we optimize his delirium. Syncopal episode - CT head negative - Likely due to bradycardia, possible sick sinus syndrome, reportedly had slow A. fib on some telemetry strips per cardiology. - Further workup per cardiology Diabetes - Hold metformin due to lactic acidosis - Insulin sliding scale Lactic acidosis- improving. - Acute kidney injury - Hold metformin - Monitor trend - IV fluid hydration Acute kidney injury- improving. - Unknown baseline - Strict I's and O - Monitor trend of creatinine and electrolytes DVT GI prophylaxis - Teds SCDs - Subcutaneous heparin and Pepcid Stef Gross MD Jul 26, 2017 13:29
[2017-07-26] MEDS ORDERED: ASPIRIN 81 MG CHEW TAB CHEW ONE (14:00)
[2017-07-26 21:27] LABS: APTT (PATIENT) 27.3 SEC (24.3-30.1)
[2017-07-27] VITALS (14 sets, daily range): BP systolic 122–151; BP diastolic 76–100; PULSE 97–120; RESP 20–31; TEMP 98.5–99.3; O2SAT 91–100
[2017-07-27 00:17] LABS: HEMATOCRIT 30.8 % (39.0-51.0)
[2017-07-27 00:30] LABS: REVIEW FLAG FINAL
[2017-07-27] MEDS: METOPROLOL TARTRATE 5 MG/5 ML VIAL IV PUSH PRN ×3 (02:11→03:57)
[2017-07-27] MEDS: QUEtiapine FUMARATE 100 MG TAB PO SCH ×3 (02:13→20:15)
[2017-07-27] MEDS: METOPROLOL TARTRATE 50 MG TAB PO SCH ×4 (02:13→20:15)
[2017-07-27] MEDS: CHLORHEXIDINE GLUCONATE 2 % 1 PACK (2 CLOTHS) TOP SCH (03:26)
[2017-07-27] MEDS: oxyCODONE HCL ORAL CONC 20 MG/ML SYRINGE PO SCH ×2 (03:26→08:56)
[2017-07-27 04:45] LABS: HEMATOCRIT 32.6 % (39.0-51.0); MEAN CELL VOLUME 90.7 FL (80.0-100.0); MEAN CORPUSCULAR HGB CONC 34.2 % (32.0-36.0); PLATELET COUNT 188 TH/MM3 (150-450); RED BLOOD COUNT 3.59 MIL/MM3 (4.50-5.90); RED CELL DISTRIBUTION WIDTH 15.4 % (11.6-17.2); REVIEW FLAG FINAL; WHITE BLOOD COUNT 10.5 TH/MM3 (4.0-11.0)
[2017-07-27 05:07] LABS: BICARBONATE 22.7 MEQ/L (21.0-32.0); POTASSIUM 3.6 MEQ/L (3.5-5.1)
[2017-07-27] MEDS: INSULIN ASPART SUPPLEMENTAL SCALE SQ SCH ×4 (08:00→20:23)
[2017-07-27] MEDS: FAMOTIDINE 20 MG/2 ML VIAL IV PUSH SCH ×2 (08:52→20:15)
[2017-07-27] MEDS: DOCUSATE SODIUM 50 MG/SENNA 8.6 MG TAB PO SCH ×2 (08:56→20:15)
[2017-07-27] MEDS: ASPIRIN EC 81 MG TABEC PO SCH (08:56)
[2017-07-27] MEDS: SODIUM CHLORIDE 0.9% FLUSH 10 ML FLUSH IV FLUSH SCH ×2 (08:57→20:16)
[2017-07-27] MEDS: ARTIFICIAL TEARS OPTH SOLN 15 ML BTL EACH EYE SCH ×3 (09:00→17:57)
--- NOTE | 2017-07-27 11:58 | HHI.PR ---
Subjective Remarks f/i for NSTEMI/bradycardia patient has no complaints. He was lethargic and did not respond much but answered yes and no questions. Denied any pain. d/w patient's nurse Del who stated no concerns and he scheduled for a cardiac catheterization tomorrow. Objective Vitals Vital Signs Date Time Temp Pulse Resp B/P (MAP) Pulse Ox O2 Delivery O2 Flow Rate FiO2 07/27/17 10:00 113 07/27/17 08:13 99 21 07/27/17 08:00 109 07/27/17 08:00 98.6 109 22 148/95 (112) 99 07/27/17 07:30 Room Air 07/27/17 06:00 110 07/27/17 04:00 109 07/27/17 04:00 99.2 109 31 151/100 (117) 100 07/27/17 02:00 120 07/27/17 00:00 99.3 104 26 134/86 (102) 98 07/27/17 00:00 104 07/26/17 22:00 112 07/26/17 21:15 99.0 108 23 143/100 100 07/26/17 20:12 98 Nasal Cannula 4.00 07/26/17 20:00 115 07/26/17 20:00 99.0 115 28 150/93 (112) 100 07/26/17 18:05 103 07/26/17 18:00 98.0 104 18 145/96 (112) 100 07/26/17 17:55 103 17 147/90 (109) 100 07/26/17 16:36 96 Nasal Cannula 4.00 07/26/17 16:00 98.0 97 18 136/88 (104) 100 07/26/17 16:00 103 07/26/17 14:00 103 07/26/17 14:00 98.0 109 21 149/94 (112) 100 07/26/17 13:00 101 19 149/97 (114) 100 07/26/17 12:00 97.9 101 15 153/99 (117) 100 07/26/17 12:00 103 I/O 07/26/17 07/26/17 07/26/17 07/27/17 07/27/17 07/27/17 06:59 14:59 22:59 06:59 14:59 22:59 Intake Total 373 ml 475 ml Output Total 345 ml 400 ml 425 ml Balance 28 ml 75 ml -425 ml Intake Oral 0 ml IV Total 108 ml 5 ml Packed Cells 250 ml 400 ml Blood Product IV Normal Saline Flush 15 ml 70 ml Output Urine Total 345 ml 400 ml 425 ml # Bowel Movements 0 0 Result Diagram: 07/27/1743607/27/17436 Objective Remarks GENERAL: in NAD CARDIOVASCULAR: Regular rate and rhythm without murmurs, gallops, or rubs. neg LE edema. RESPIRATORY: Breath sounds equal bilaterally. No accessory muscle use. GASTROINTESTINAL: Abdomen soft, non-tender, nondistended. Medications and IVs Current Medications Sodium Chloride (NS Flush) 2 ml UNSCH PRN IVF FLUSH AFTER USING IV ACCESS; Start 07/20/17 at 20:00; Stop 07/20/17 at 23:04; Status DC Sodium Chloride 1,000 ml @ 1,000 mls/hr Q1H ONCE IV Last administered on 21:08; Start 07/20/17 at 19:47; Stop 07/20/17 at 20:46; Status DC Sodium Chloride 1,000 ml @ 999 mls/hr BOLUS ONCE IV Last administered on 07/20 21:08; Start 07/20/17 at 20:00; Stop 07/20/17 at 21:00; Status DC Midazolam HCl 100 ml @ As Directed STK-MED ONCE .ROUTE ; Start 07/20/17 at 20: 07; Stop 07/20/17 at 20:08; Status DC Fentanyl Citrate 250 ml @ As Directed STK-MED ONCE .ROUTE ; Start 07/20/17 at 20:07; Stop 07/20/17 at 20:08; Status DC Propofol 100 ml @ As Directed STK-MED ONCE .ROUTE ; Start 07/20/17 at 20:18; Stop 07/20/17 at 20:19; Status DC Fentanyl Citrate 250 ml @ 5 mls/hr TITRATE PRN IV SEDATION Last administered on 07/24/17 00:27; Start 07/20/17 at 20:45; Stop 07/24/17 at 20:08; Status DC Dopamine HCl/ Dextrose 500 ml @ 7.875 mls/ hr TITRATE PRN IV Blood Pressure Management Last administered on 07/20/17 21:15; Start 07/20/17 at 20:45; Stop 07/23/17 at 07:42; Status DC Midazolam HCl 100 ml @ 2 mls/hr TITRATE PRN IV SEDATION Last administered on 06:24; Start 07/20/17 at 20:45; Stop 07/23/17 at 07:42; Status DC Etomidate (Amidate Inj) 20 mg ONCE ONCE IV PUSH Last administered on 21:12; Start 07/20/17 at 20:45; Stop 07/20/17 at 20:46; Status DC Succinylcholine Chloride (Quelicin Inj) 100 mg ONCE ONCE IV PUSH Last administered on 07/20/17 21:12; Start 07/20/17 at 20:45; Stop 07/20/17 at 20:46 ; Status DC Vecuronium Hasty (Norcuron 10 Mg Inj) 10 mg ONCE ONCE IV PUSH Last administered on 07/20/17 21:11; Start 07/20/17 at 20:45; Stop 07/20/17 at 20:46 ; Status DC Atropine Sulfate (Atropine Inj) 1 mg ONCE ONCE IV PUSH Last administered on 21:11; Start 07/20/17 at 20:45; Stop 07/20/17 at 20:46; Status DC Magnesium Sulfate/ Dextrose 100 ml @ 100 mls/hr Q1H IV Last administered on 22:49; Start 07/20/17 at 21:15; Stop 07/20/17 at 23:14; Status DC Vancomycin HCl 1000 mg/Sodium Chloride 250 ml @ 250 mls/hr ONCE STAT IV Last administered on 07/20/17 23:47; Start 07/20/17 at 21:32; Stop 07/20/17 at 22:31 ; Status DC Piperacillin Sod/ Tazobactam Sod 100 ml @ 200 mls/hr ONCE STAT IV Last administered on 07/20/17 21:38; Start 07/20/17 at 21:32; Stop 07/20/17 at 22:01 ; Status DC Sodium Chloride 1,000 ml @ 999 mls/hr BOLUS ONCE IV Last administered on 07/20 21:47; Start 07/20/17 at 21:45; Stop 07/20/17 at 22:45; Status DC Sodium Chloride 1,000 ml @ 999 mls/hr BOLUS ONCE IV Last administered on 07/20 21:47; Start 07/20/17 at 21:45; Stop 07/20/17 at 22:45; Status DC Sodium Chloride 1,000 ml @ 84 mls/hr [id number] IV Last administered on 06:28; Start 07/20/17 at 22:39; Stop 07/23/17 at 07:42; Status DC Sodium Chloride (NS Flush) 2 ml UNSCH PRN IV FLUSH FLUSH AFTER USING IV ACCESS ; Start 07/20/17 at 22:45 Sodium Chloride (NS Flush) 2 ml BID IV FLUSH Last administered on 07/27/17 08 :57; Start 07/21/17 at 09:00 Acetaminophen (Tylenol) 650 mg Q6H PRN PO FEVER >101F; Start 07/20/17 at 22:45 Acetaminophen/ Hydrocodone Bitart ([place] 5-325 Mg) 1 tab Q4H PRN PO PAIN SCALE 1 TO 5; Start 07/20/17 at 22:45 Morphine Sulfate (Morphine Inj) 2 mg Q2H PRN IV PUSH PAIN SCALE 6 TO 10; Start 07/20/17 at 22:45 Famotidine (Pepcid Inj) 10 mg Q12HR IV PUSH Last administered on 07/22/17 08: 11; Start 07/21/17 at 09:00; Stop 07/22/17 at 11:12; Status DC Lorazepam (Ativan Inj) 1 mg Q1H PRN IV PUSH Agitation/Sedation; Start 07/20/17 at 22:45; Stop 07/23/17 at 07:42; Status DC Artificial Tears (Tears Naturale Opth Soln) 1 drop TID EACH EYE Last administered on 07/26/17 17:32; Start 07/21/17 at 09:00 Ondansetron HCl (Zofran Inj) 4 mg Q6H PRN IV PUSH NAUSEA OR VOMITING; Start at 22:45 Albuterol/ Ipratropium (Duoneb Neb) 1 ampule Q6HR NEB INH Last administered on 07/24/17 20:16; Start 07/21/17 at 04:00; Stop 07/25/17 at 03:59; Status DC Albuterol/ Ipratropium (Duoneb Neb) 1 ampule Q2HR NEB PRN INH WHEEZING Last administered on 07/25/17 13:55; Start 07/20/17 at 22:45 Heparin Sodium (Porcine) (Heparin Inj) 5,000 units Q8H SQ Last administered on 07/21/17 01:27; Start 07/21/17 at 00:00; Stop 07/21/17 at 17:35; Status DC Miscellaneous Information 1 Q361D XX ; Start 07/20/17 at 22:45 Chlorhexidine Gluconate (Chlorhexidine 2% Cloth) Taper DAILY@04 TOP Last administered on 07/27/17 03:26; Start 07/21/17 at 04:00; Stop 07/17/18 at 03: 59 Chlorhexidine Gluconate (Chlorhexidine 2% Cloth) 3 pack UNSCH PRN TOP HYGIENIC CARE; Start 07/20/17 at 22:45 Senna/Docusate Sodium (Pema-Colace) 1 tab BID PO Last administered on 08:56; Start 07/21/17 at 09:00 Magnesium Hydroxide (Milk Of Magnesia Liq) 30 ml Q12H PRN PO MILD - MODERATE CONSTIPATION; Start 07/20/17 at 22:45 Sennosides (Senokot) 17.2 mg Q12H PRN PO MODERATE - SEVERE CONSTIPATION Last administered on 07/22/17 21:30; Start 07/20/17 at 22:45 Bisacodyl (Dulcolax Supp) 10 mg DAILY PRN RECTAL SEVERE CONSITIPATION; Start 07/20/17 at 22:45 Lactulose (Lactulose Liq) 30 ml DAILY PRN PO SEVERE CONSITIPATION; Start at 22:45 Dextrose (D50w (Vial) Inj) 50 ml UNSCH PRN IV PUSH HYPOGLYCEMIA-SEE COMMENTS Last administered on 07/23/17 06:28; Start 07/21/17 at 00:30 Glucagon (Glucagon Inj) 1 mg UNSCH PRN OTHER HYPOGLYCEMIA-SEE COMMENTS; Start 07/21/17 at 00:30 Insulin Aspart (NovoLOG SUPPLEMENTAL SCALE) 1 ACHS SLIDING SCALE SQ ; Start at 08:00 Aspirin (Aspirin) 325 mg ONCE ONCE PO Last administered on 07/21/17 04:52; Start 07/21/17 at 04:30; Stop 07/21/17 at 04:31; Status DC Atorvastatin Calcium (Lipitor) 40 mg ONCE ONCE PO Last administered on 04:52; Start 07/21/17 at 04:30; Stop 07/21/17 at 04:31; Status DC Heparin Sodium/ Dextrose 250 ml @ 9 mls/hr TITRATE PRN IV Coagulation management Last administered on 07/25/17 09:40; Start 07/21/17 at 04:30; Stop 07/26/17 at 13:17; Status DC Magnesium Sulfate 2 gm/Sodium Chloride 104 ml @ 52 mls/hr ONCE ONCE IV Last administered on 07/21/17 15:12; Start 07/21/17 at 15:00; Stop 07/21/17 at 16:59 ; Status DC Famotidine (Pepcid Inj) 20 mg Q12HR IV PUSH Last administered on 07/27/17 08: 52; Start 07/22/17 at 21:00 Propofol 100 ml @ 2.22 mls/hr TITRATE PRN IV SEDATION Last administered on 06:47; Start 07/23/17 at 07:45; Stop 07/26/17 at 13:17; Status DC Quetiapine Fumarate (SEROquel) 100 mg Q8HR PO Last administered on 07/25/17 12:11; Start 07/23/17 at 07:45 Metoprolol Tartrate (Lopressor Inj) 5 mg Q4H IV PUSH Last administered on 07/26 00:02; Start 07/23/17 at 08:00; Stop 07/26/17 at 05:01; Status DC Metoprolol Tartrate (Lopressor Inj) 5 mg Q5M PRN IV PUSH for goal HR < 90 Last administered on 07/27/17 03:57; Start 07/23/17 at 07:45 Oxycodone HCl (Roxicodone Intensol Liq) 10 mg Q4H PO Last administered on 07/27 08:56; Start 07/23/17 at 08:00; Stop 07/27/17 at 11:06; Status DC Haloperidol Lactate (Haldol Inj) 5 mg Q4H PRN IV agitation Last administered on 07/26/17 05:27; Start 07/23/17 at 07:45 Metoprolol Tartrate (Lopressor) 50 mg Q12HR PO Last administered on 07/27/17 08:56; Start 07/24/17 at 10:00 Sodium Chloride 250 ml @ 15 mls/hr ONCE ONCE IV Last administered on 14:00; Start 07/25/17 at 14:00; Stop 07/26/17 at 06:39; Status DC Dopamine HCl/ Dextrose 500 ml @ As Directed STK-MED ONCE IV ; Start 07/21/17 at 05:00; Stop 07/25/17 at 16:08; Status DC Digoxin (Lanoxin Inj) 0.5 mg STK-MED ONCE IV PUSH ; Start 07/21/17 at 05:00; Stop 07/25/17 at 16:08; Status DC Metoprolol Tartrate (Lopressor Inj) 10 mg NOW ONCE IV PUSH Last administered on 07/26/17 03:17; Start 07/26/17 at 03:05; Stop 07/26/17 at 03:06; Status DC Metoprolol Tartrate (Lopressor Inj) 10 mg Q4H IV PUSH ; Start 07/26/17 at 05:00 ; Stop 07/26/17 at 05:02; Status DC Metoprolol Tartrate (Lopressor Inj) 10 mg Q4H IV PUSH Last administered on 22:04; Start 07/26/17 at 05:00; Stop 07/26/17 at 23:00; Status DC Sodium Chloride 250 ml @ 15 mls/hr ONCE ONCE IV ; Start 07/26/17 at 13:15; Stop 07/27/17 at 05:54; Status DC Aspirin (Aspirin Chew) 324 mg ONCE ONCE CHEW ; Start 07/26/17 at 14:00; Stop 07/26/17 at 14:01; Status DC Aspirin (Ecotrin Ec) 81 mg DAILY PO Last administered on 07/27/17 08:56; Start 07/27/17 at 09:00 Metoprolol Tartrate (Lopressor) 50 mg Q8HR PO ; Start 07/26/17 at 14:00 Oxycodone HCl (Roxicodone Intensol Liq) 10 mg Q4H PO ; Start 07/27/17 at 12:00 A/P Assessment and Plan [id number] with presented with bradycardia found to have NSTEMI Agitated Delirium -admitted to ICU and was given propafol. -Off propofol since 07/25 -extubated 07/25 - will avoid precedex given recent bradycardia Acute Hypoxic Respiratory failure -Patient was intubated and was extubated successfully. -Resolved. Sinus Bradycardia- resolved. NSTEMI Sinus Tachycardia secondary to agitation - Dopamine drip has been weaned off. - Cardiology consulted, Dr. Ron following and planning cardiac catheterization for tomorrow. - 2-D echo: normal LVEF - Elevated troponin consistent with non-ST elevation HI per cardiology. - Stop heparin GTT, aspirin 324 mg by mouth now and then 81 mg by mouth daily. - trend troponins q8h, currently downtrending. Syncopal episode - CT head negative - Likely due to bradycardia, possible sick sinus syndrome, reportedly had slow A. fib on some telemetry strips per cardiology. Diabetes - Hold metformin due to lactic acidosis - Insulin sliding scale Lactic acidosis- improving. - Acute kidney injury - Hold metformin - Monitor trend - IV fluid hydration Acute kidney injury- improving. - Unknown baseline - Strict I's and O - Monitor trend of creatinine and electrolytes DVT GI prophylaxis - Teds SCDs - Subcutaneous heparin and Pepcid Discharge Planning Patient scheduled for cardiac catheterization tomorrow. He can be transferred to [facility]. Zohreh Strickland MD Jul 27, 2017 11:58
[2017-07-27] MEDS ORDERED: oxyCODONE HCL ORAL CONC 5 MG/0.25 ML SYRINGE PO SCH (12:00)
[2017-07-27 12:39] LABS: BLOOD GAS BASE EXCESS -5.8 mmol/L (-2-2); BLOOD GAS CARBOXYHEMOGLOBIN 1.2 % (0-4); BLOOD GAS HCO3 18 mmol/L (22-26); BLOOD GAS METHEMOGLOBIN 1.1 % (0-2); BLOOD GAS O2 HGB SATURATION 87 % (90-100); BLOOD GAS OXYGEN CONTENT 24.1 Vol % (12.0-20.0); BLOOD GAS PCO2 28 mmHg (38-42); BLOOD GAS PO2 63 mmHg (61-120); BLOOD GAS TOTAL HGB 19.7 G/DL (12.0-16.0); TEMP CORR TO 98.6
[2017-07-27 12:40] LABS: CRITICAL VALUE YES; DRAW SITE LT RADIAL; LITER FLOW 15 L/M; NUMBER OF ARTERIAL PUNCTURES 1; OXYGEN DEVICE NRB; STAT YES; ULNAR PULSE PRESENT
[2017-07-27] MEDS ORDERED: HEPARIN-D5W 25,000 U/250 ML 250 ML IV PRN (12:45)
[2017-07-27] MEDS ORDERED: HEPARIN SODIUM - IV 10,000 UNITS/10 ML VIAL IV PUSH ONE (12:45)
[2017-07-27] MEDS ORDERED: FUROSEMIDE 40 MG/4 ML VIAL ONE (12:51)
[2017-07-27] MEDS ORDERED: FUROSEMIDE 40 MG/4 ML VIAL IV PUSH ONE (13:00)
--- NOTE | 2017-07-27 13:13 | RADRPT ---
EXAM DATE/TIME: 07/27/2017 12:48 [facility] COMPARISON: CHEST SINGLE AP, July 25, 2017, 13:52. INDICATIONS : resp distress MEDICAL HISTORY : Diabetes SURGICAL HISTORY : None. ENCOUNTER: Initial ACUITY: 1 week PAIN SCORE: 0/10 LOCATION: Bilateral chest FINDINGS: A single portable frontal view of the chest shows interval development of bibasilar intra-alveolar pu lmonary infiltrates and small right effusion. Heart is normal in size. Right-sided central line. No p neumothorax. CONCLUSION: 1. Development of right effusion and bibasilar intraalveolar infiltrates suggesting pulmonary edema. Anibal Alatorre Jr., MD on July 27, 2017 at 13:08 Board Certified Radiologist. This report was verified electronically.
[2017-07-27 13:21] LABS: HEMATOCRIT 30.8 % (39.0-51.0); MEAN CELL VOLUME 90.7 FL (80.0-100.0); MEAN CORPUSCULAR HEMOGLOBIN 30.8 PG (27.0-34.0); PLATELET COUNT 188 TH/MM3 (150-450); RED BLOOD COUNT 3.39 MIL/MM3 (4.50-5.90); RED CELL DISTRIBUTION WIDTH 15.2 % (11.6-17.2); REVIEW FLAG FINAL; WHITE BLOOD COUNT 9.7 TH/MM3 (4.0-11.0)
[2017-07-27 13:27] LABS: APTT (PATIENT) 30.4 SEC (24.3-30.1); INTERNATIONAL NORMALIZED RATIO 1.1 RATIO; PROTHROMBIN TIME - PATIENT 12.4 SEC (9.8-11.6)
[2017-07-27 13:54] LABS: CKMB 3.4 NG/ML (0.5-3.6)
[2017-07-27] MEDS: oxyCODONE HCL ORAL CONC 5 MG/0.25 ML SYRINGE PO SCH ×2 (14:00→20:15)
[2017-07-27] MEDS ORDERED: IOHEXOL 350 MG/ML 10 ML VIAL (for RAD DIAG) IVCONTRAST ONE (14:11)
--- NOTE | 2017-07-27 14:37 | RADRPT ---
EXAM DATE/TIME: 07/27/2017 13:57 [facility] COMPARISON: No previous studies available for comparison. INDICATIONS : Respiratory distress IV CONTRAST: 70 cc Omnipaque 350 (iohexol) IV RADIATION DOSE: 10.66 CTDIvol (mGy) MEDICAL HISTORY : Diabetes mellitus type 1. SURGICAL HISTORY : None. ENCOUNTER: Initial ACUITY: 1 day PAIN SCALE: 0/10 LOCATION: chest TECHNIQUE: Volumetric scanning of the chest was performed using a pulmonary embolism protocol MIP images were re constructed. Using automated exposure control and adjustment of the mA and/or kV according to patien t size, radiation dose was kept as low as reasonably achievable to obtain optimal diagnostic quality images. DICOM format image data is available electronically for review and comparison. Follow-up recommendations for detected pulmonary nodules are based at a minimum on nodule size and pa tient risk factors according to Fleischner Society Guidelines. FINDINGS: The exam is limited secondary to motion artifact which limits the interpretation. Large bilateral ple ural effusions are identified. There is bilateral lower lobe atelectasis versus pneumonia. Examination of the mediastinum demonstrates no abnormally enlarged lymph nodes by CT criteria. No axi llary or hilar abnormalities are identified. Coronary artery calcifications are present. The visualiz ed upper abdomen demonstrates no abnormality. CONCLUSION: 1. Exam severely limited by motion artifact 2. Large bilateral effusions 3. Diffuse edema versus pneumonia 4. No evidence of pulmonary embolism. Esvin Dotson MD on July 27, 2017 at 14:32 Board Certified Radiologist. This report was verified electronically.
--- NOTE | 2017-07-27 14:50 | EKG ---
Date Performed: 07/27/2017 Time Performed: 13:19:08 PTAGE: 61 years EKG: Sinus rhythm PROBABLE INFERIOR MYOCARDIAL INFARCTION , OF INDETERMINATE AGE INFERIOR AND LATERAL ST/T CHANGES, CO NSIDER ISCHEMIA ABNORMAL ECG PREVIOUS TRACING : 07/21/2017 04.30 Compared to previous tracing, inferior and lateral ST/T jackie nges are now more pronounced. DOCTOR: Leandro Murillo Interpretating Date/Time 07/27/2017 14:49:12
[2017-07-27] MEDS: FUROSEMIDE 40 MG/4 ML VIAL IV PUSH SCH (17:57)
[2017-07-27] MEDS ORDERED: LABETALOL HCL 100 MG/20 ML VIAL IV PRN (19:45)
[2017-07-27 21:06] LABS: APTT (PATIENT) 79.5 SEC (24.3-30.1)
[2017-07-28] VITALS (14 sets, daily range): BP systolic 106–156; BP diastolic 62–94; PULSE 90–111; RESP 15–39; TEMP 98.3–99.1; O2SAT 92–100
[2017-07-28] MEDS: CHLORHEXIDINE GLUCONATE 2 % 1 PACK (2 CLOTHS) TOP SCH ×2 (04:00→21:03)
[2017-07-28] MEDS: QUEtiapine FUMARATE 100 MG TAB PO SCH ×3 (05:24→21:02)
[2017-07-28] MEDS: METOPROLOL TARTRATE 50 MG TAB PO SCH ×3 (05:24→21:01)
[2017-07-28] MEDS: oxyCODONE HCL ORAL CONC 5 MG/0.25 ML SYRINGE PO SCH ×3 (05:25→21:02)
[2017-07-28 07:06] LABS: HEMATOCRIT 31.2 % (39.0-51.0); MEAN CELL VOLUME 91.6 FL (80.0-100.0); MEAN CORPUSCULAR HGB CONC 33.8 % (32.0-36.0); PLATELET COUNT 212 TH/MM3 (150-450); RED BLOOD COUNT 3.41 MIL/MM3 (4.50-5.90); RED CELL DISTRIBUTION WIDTH 14.9 % (11.6-17.2); REVIEW FLAG FINAL; WHITE BLOOD COUNT 10.2 TH/MM3 (4.0-11.0)
[2017-07-28 07:18] LABS: APTT (PATIENT) 49.7 SEC (24.3-30.1)
[2017-07-28] MEDS: INSULIN ASPART SUPPLEMENTAL SCALE SQ SCH ×4 (08:00→21:00)
[2017-07-28 08:43] LABS: BICARBONATE 28.6 MEQ/L (21.0-32.0)
[2017-07-28] MEDS: ARTIFICIAL TEARS OPTH SOLN 15 ML BTL EACH EYE SCH ×3 (09:00→17:52)
[2017-07-28] MEDS: FUROSEMIDE 40 MG/4 ML VIAL IV PUSH SCH ×2 (09:00→17:49)
--- NOTE | 2017-07-28 09:01 | PD.CARD.PN ---
Subjective Subjective Remarks Episode of acute dyspnea yesterday, CTA done showing no pulmonary emboli. Cxr suggets edema possibly non-cardiac i.e. ARDS. Feels better now. Diuresed with mild increase in creatinine. Troponin and CPK trending down. No chest pain. Objective Medications Current Medications Medications (Trade) Dose Ordered Sig/Omero Route Start Time Stop Time Status Last Admin (NS Flush) 2 ml UNSCH PRN IV FLUSH 07/20/17 22:45 (NS Flush) 2 ml BID IV FLUSH 07/21/17 09:00 07/27/17 20:16 (Tylenol) 650 mg Q6H PRN PO 07/20/17 22:45 ([place] 5-325 Mg) 1 tab Q4H PRN PO 07/20/17 22:45 (Morphine Inj) 2 mg Q2H PRN IV PUSH 07/20/17 22:45 (Tears Naturale Opth Soln) 1 drop TID EACH EYE 07/21/17 09:00 07/26/17 17:32 (Zofran Inj) 4 mg Q6H PRN IV PUSH 07/20/17 22:45 (Duoneb Neb) 1 ampule Q2HR NEB PRN INH 07/20/17 22:45 07/25/17 13:55 Miscellaneous Information 1 Q361D XX 07/20/17 22:45 (Chlorhexidine 2% Cloth) Taper DAILY@04 TOP 07/21/17 04:00 07/17/18 03:59 07/28/17 04:00 (Chlorhexidine 2% Cloth) 3 pack UNSCH PRN TOP 07/20/17 22:45 (Pema-Colace) 1 tab BID PO 07/21/17 09:00 07/27/17 20:15 (Milk Of Magnesia Liq) 30 ml Q12H PRN PO 07/20/17 22:45 (Senokot) 17.2 mg Q12H PRN PO 07/20/17 22:45 07/22/17 21:30 (Dulcolax Supp) 10 mg DAILY PRN RECTAL 07/20/17 22:45 (Lactulose Liq) 30 ml DAILY PRN PO 07/20/17 22:45 (D50w (Vial) Inj) 50 ml UNSCH PRN IV PUSH 07/21/17 00:30 07/23/17 06:28 (Glucagon Inj) 1 mg UNSCH PRN OTHER 07/21/17 00:30 (NovoLOG SUPPLEMENTAL SCALE) 1 ACHS SLIDING SCALE SQ 07/21/17 08:00 (Pepcid Inj) 20 mg Q12HR IV PUSH 07/22/17 21:00 07/27/17 20:15 (SEROquel) 100 mg Q8HR PO 07/23/17 07:45 07/28/17 05:24 (Lopressor Inj) 5 mg Q5M PRN IV PUSH 07/23/17 07:45 07/27/17 03:57 (Haldol Inj) 5 mg Q4H PRN IV 07/23/17 07:45 07/26/17 05:27 (Ecotrin Ec) 81 mg DAILY PO 07/27/17 09:00 07/27/17 08:56 (Lopressor) 50 mg Q8HR PO 07/26/17 14:00 07/28/17 05:24 (Roxicodone Intensol Liq) 10 mg Q8HR PO 07/27/17 14:00 07/28/17 05:25 (Lasix Inj) 40 mg BID@09,18 IV PUSH 07/27/17 18:00 07/27/17 17:57 (Trandate Inj) 20 mg Q2H PRN IV 07/27/17 19:45 Vital Signs / I&O Vital Signs Date Time Temp Pulse Resp B/P (MAP) Pulse Ox O2 Delivery O2 Flow Rate FiO2 07/28/17 07:52 100 Nasal Cannula 4.00 07/28/17 06:00 95 07/28/17 04:00 97 07/28/17 04:00 98.6 97 39 129/74 (92) 98 07/28/17 02:00 97 07/28/17 00:00 99.1 100 20 137/88 (104) 96 07/28/17 00:00 100 07/27/17 22:00 97 07/27/17 20:00 98.5 104 20 144/87 (106) 91 07/27/17 20:00 104 07/27/17 19:06 97 Nasal Cannula 4.00 07/27/17 19:00 93 Nasal Cannula 4.00 07/27/17 18:00 100 07/27/17 17:30 95 Nasal Cannula 4.00 07/27/17 16:00 98.8 101 25 147/100 (116) 99 07/27/17 16:00 98 07/27/17 14:30 99 Partial Non-Rebreather 07/27/17 14:00 98 07/27/17 12:15 58 Non-Rebreather 15.00 07/27/17 12:05 75 Nasal Cannula 6.00 07/27/17 12:00 99.0 112 26 122/76 (91) 98 07/27/17 12:00 116 07/27/17 10:00 113 I/O 07/27/17 07/27/17 07/27/17 07/28/17 07/28/17 07/28/17 07:00 15:00 23:00 07:00 15:00 23:00 Intake Total 120 ml 120 ml Output Total 425 ml 2900 ml 1475 ml Balance -425 ml -2780 ml -1355 ml Intake Oral 120 ml 120 ml Output Urine Total 425 ml 2900 ml 1475 ml Physical Exam Lungs clear RRR sinus tach Laboratory Laboratory Tests Test 07/27/17 12:29 07/27/17 12:50 07/27/17 20:00 07/28/17 05:40 Blood Gas Puncture Site LT RADIAL Blood Gas Patient Temperature 98.6 Blood Gas HCO3 18 mmol/L Blood Gas Base Excess -5.8 mmol/L Blood Gas Oxygen Saturation 87 % Arterial Blood pH 7.42 Arterial Blood Partial Pressure CO2 28 mmHg Arterial Blood Partial Pressure O2 63 mmHg Arterial Blood Oxygen Content 24.1 Vol % Arterial Blood Carboxyhemoglobin 1.2 % Arterial Blood Methemoglobin 1.1 % Blood Gas Hemoglobin 19.7 G/DL Oxygen Delivery Device NRB Blood Gas Liter Flow 15 L/M White Blood Count 9.7 TH/MM3 10.2 TH/MM3 Red Blood Count 3.39 MIL/MM3 3.41 MIL/MM3 Hemoglobin 10.5 GM/DL 10.5 GM/DL Hematocrit 30.8 % 31.2 % Mean Corpuscular Volume 90.7 FL 91.6 FL Mean Corpuscular Hemoglobin 30.8 PG 31.0 PG Mean Corpuscular Hemoglobin Concent 34.0 % 33.8 % Red Cell Distribution Width 15.2 % 14.9 % Platelet Count 188 TH/MM3 212 TH/MM3 Mean Platelet Volume 8.4 FL 8.9 FL Prothrombin Time 12.4 SEC Prothromb Time International Ratio 1.1 RATIO Activated Partial Thromboplast Time 30.4 SEC 79.5 SEC 49.7 SEC Total Creatine Kinase 681 U/L Creatine Kinase MB 3.4 NG/ML Creatine Kinase MB % 0.5 % Troponin I 7.63 NG/ML B-Type Natriuretic Peptide 1100 PG/ML Blood Urea Nitrogen 22 MG/DL Creatinine 1.16 MG/DL Random Glucose 108 MG/DL Calcium Level 9.4 MG/DL Sodium Level 143 MEQ/L Potassium Level 3.0 MEQ/L Chloride Level 106 MEQ/L Carbon Dioxide Level 28.6 MEQ/L Anion Gap 8 MEQ/L Estimat Glomerular Filtration Rate 78 ML/MIN Assessment and Plan Problem List: (1) NSTEMI (non-ST elevated myocardial infarction) ICD Codes: I21.4 - Non-ST elevation (NSTEMI) myocardial infarction Status: Acute Plan: Will need cath but in absence of chest pain or increase in ischemic markers will defer to monday pending Cxr clearing and stable renal function. Suspect he has a completed [place] but will need to evaluate coronary anatomy prior to discharge (2) Bradycardia ICD Codes: R00.1 - Bradycardia, unspecified Status: Acute Assessment and Plan CV stable. By enzymes has a completed [place] with preserved LV function per echo. HR elevated and BP stable. Will try metoprolol 50 mg bid. Consider cath once extubated and agitation subsides Esvin Ron MD Jul 28, 2017 09:01
[2017-07-28] MEDS: SODIUM CHLORIDE 0.9% FLUSH 10 ML FLUSH IV FLUSH SCH ×2 (09:39→21:01)
[2017-07-28] MEDS: FAMOTIDINE 20 MG/2 ML VIAL IV PUSH SCH ×2 (09:39→21:02)
[2017-07-28] MEDS: DOCUSATE SODIUM 50 MG/SENNA 8.6 MG TAB PO SCH ×2 (09:40→21:01)
[2017-07-28] MEDS: ASPIRIN EC 81 MG TABEC PO SCH (09:40)
--- NOTE | 2017-07-28 14:09 | HHI.PR ---
Subjective Remarks Follow-up for NSTEMI Yesterday patient went to respiratory failure was found to have pulmonary edema. Patient was seen by hydropulper and was given multiple doses of Lasix and responded very well. Patient is not on any oxygen. Patient denies any shortness of breathing or cough. He denies any chest pain. He has no complaints. Objective Vitals Vital Signs Date Time Temp Pulse Resp B/P (MAP) Pulse Ox O2 Delivery O2 Flow Rate FiO2 07/28/17 12:00 98 07/28/17 12:00 98.3 98 17 156/87 (110) 99 07/28/17 10:00 90 07/28/17 08:00 90 07/28/17 08:00 94 Nasal Cannula 2.00 07/28/17 08:00 98.8 90 16 111/62 (78) 92 07/28/17 07:52 100 Nasal Cannula 4.00 07/28/17 06:00 95 07/28/17 04:00 97 07/28/17 04:00 98.6 97 39 129/74 (92) 98 07/28/17 02:00 97 07/28/17 00:00 99.1 100 20 137/88 (104) 96 07/28/17 00:00 100 07/27/17 22:00 97 07/27/17 20:00 98.5 104 20 144/87 (106) 91 07/27/17 20:00 104 07/27/17 19:06 97 Nasal Cannula 4.00 07/27/17 19:00 93 Nasal Cannula 4.00 07/27/17 18:00 100 07/27/17 17:30 95 Nasal Cannula 4.00 07/27/17 16:00 98.8 101 25 147/100 (116) 99 07/27/17 16:00 98 07/27/17 14:30 99 Partial Non-Rebreather I/O 07/27/17 07/27/17 07/27/17 07/28/17 07/28/17 07/28/17 07:00 15:00 23:00 07:00 15:00 23:00 Intake Total 120 ml 120 ml 244 ml Output Total 425 ml 2900 ml 1475 ml Balance -425 ml -2780 ml -1355 ml 244 ml Intake Oral 120 ml 120 ml IV Total 244 ml Output Urine Total 425 ml 2900 ml 1475 ml Result Diagram: 07/28/17 0540 07/28/17 0540 Imaging Last Impressions Chest X-Ray 07/27/17 0000 Signed Impressions: Service Date/Time: July 12:48 - CONCLUSION: 1. Development of right effusion and bibasilar intraalveolar infiltrates suggesting pulmonary edema. Anibal Alatorre Jr., MD CT Angiography 07/27/17 0000 Signed Impressions: Service Date/Time: July 13:57 - CONCLUSION: 1. Exam severely limited by motion artifact 2. Large bilateral effusions 3. Diffuse edema versus pneumonia 4. No evidence of pulmonary embolism. Esvin Dotson MD Abdomen/Pelvis CT [id number] Signed Impressions: Service Date/Time: July 22:18 - CONCLUSION: 1. Mild amount of ascites seen around the liver. 2. Mild thickening of the gallbladder wall. This is nonspecific. Calcified gallstones are not seen. 3. Moderate distension of the urinary bladder. There is Naqvi catheter in the urinary bladder. Gary Ray MD Head CT [id number] Signed Impressions: Service Date/Time: July 22:14 - CONCLUSION: 1. No acute intracranial abnormality. 2. 2.8 cm hyperdense area seen in the superficial fat at the lower occipital/upper neck subcutaneous fat likely representing a hematoma. Gary Ray MD Chest CT 07/20/17 0000 Signed Impressions: Service Date/Time: July 22:18 - CONCLUSION: Bibasilar areas of consolidation or atelectasis. Gary Ray MD Objective Remarks GENERAL: in NAD CARDIOVASCULAR: Regular rate and rhythm without murmurs, gallops, or rubs. neg LE edema. RESPIRATORY: Poor inspiratory effort. Mild basilar bilateral crackles. Otherwise no rhonchi or wheezing. No accessory muscle use. GASTROINTESTINAL: Abdomen soft, non-tender, nondistended. Medications and IVs Current Medications Sodium Chloride (NS Flush) 2 ml UNSCH PRN IVF FLUSH AFTER USING IV ACCESS; Start 07/20/17 at 20:00; Stop 07/20/17 at 23:04; Status DC Sodium Chloride 1,000 ml @ 1,000 mls/hr Q1H ONCE IV Last administered on 21:08; Start 07/20/17 at 19:47; Stop 07/20/17 at 20:46; Status DC Sodium Chloride 1,000 ml @ 999 mls/hr BOLUS ONCE IV Last administered on 07/20 21:08; Start 07/20/17 at 20:00; Stop 07/20/17 at 21:00; Status DC Midazolam HCl 100 ml @ As Directed STK-MED ONCE .ROUTE ; Start 07/20/17 at 20: 07; Stop 07/20/17 at 20:08; Status DC Fentanyl Citrate 250 ml @ As Directed STK-MED ONCE .ROUTE ; Start 07/20/17 at 20:07; Stop 07/20/17 at 20:08; Status DC Propofol 100 ml @ As Directed STK-MED ONCE .ROUTE ; Start 07/20/17 at 20:18; Stop 07/20/17 at 20:19; Status DC Fentanyl Citrate 250 ml @ 5 mls/hr TITRATE PRN IV SEDATION Last administered on 07/24/17 00:27; Start 07/20/17 at 20:45; Stop 07/24/17 at 20:08; Status DC Dopamine HCl/ Dextrose 500 ml @ 7.875 mls/ hr TITRATE PRN IV Blood Pressure Management Last administered on 07/20/17 21:15; Start 07/20/17 at 20:45; Stop 07/23/17 at 07:42; Status DC Midazolam HCl 100 ml @ 2 mls/hr TITRATE PRN IV SEDATION Last administered on 06:24; Start 07/20/17 at 20:45; Stop 07/23/17 at 07:42; Status DC Etomidate (Amidate Inj) 20 mg ONCE ONCE IV PUSH Last administered on 21:12; Start 07/20/17 at 20:45; Stop 07/20/17 at 20:46; Status DC Succinylcholine Chloride (Quelicin Inj) 100 mg ONCE ONCE IV PUSH Last administered on 07/20/17 21:12; Start 07/20/17 at 20:45; Stop 07/20/17 at 20:46 ; Status DC Vecuronium [place] (Norcuron 10 Mg Inj) 10 mg ONCE ONCE IV PUSH Last administered on 07/20/17 21:11; Start 07/20/17 at 20:45; Stop 07/20/17 at 20:46 ; Status DC Atropine Sulfate (Atropine Inj) 1 mg ONCE ONCE IV PUSH Last administered on 21:11; Start 07/20/17 at 20:45; Stop 07/20/17 at 20:46; Status DC Magnesium Sulfate/ Dextrose 100 ml @ 100 mls/hr Q1H IV Last administered on 22:49; Start 07/20/17 at 21:15; Stop 07/20/17 at 23:14; Status DC Vancomycin HCl 1000 mg/Sodium Chloride 250 ml @ 250 mls/hr ONCE STAT IV Last administered on 07/20/17 23:47; Start 07/20/17 at 21:32; Stop 07/20/17 at 22:31 ; Status DC Piperacillin Sod/ Tazobactam Sod 100 ml @ 200 mls/hr ONCE STAT IV Last administered on 07/20/17 21:38; Start 07/20/17 at 21:32; Stop 07/20/17 at 22:01 ; Status DC Sodium Chloride 1,000 ml @ 999 mls/hr BOLUS ONCE IV Last administered on 07/20 21:47; Start 07/20/17 at 21:45; Stop 07/20/17 at 22:45; Status DC Sodium Chloride 1,000 ml @ 999 mls/hr BOLUS ONCE IV Last administered on 07/20 21:47; Start 07/20/17 at 21:45; Stop 07/20/17 at 22:45; Status DC Sodium Chloride 1,000 ml @ 84 mls/hr [id number] IV Last administered on 06:28; Start 07/20/17 at 22:39; Stop 07/23/17 at 07:42; Status DC Sodium Chloride (NS Flush) 2 ml UNSCH PRN IV FLUSH FLUSH AFTER USING IV ACCESS ; Start 07/20/17 at 22:45 Sodium Chloride (NS Flush) 2 ml BID IV FLUSH Last administered on 07/28/17 09 :39; Start 07/21/17 at 09:00 Acetaminophen (Tylenol) 650 mg Q6H PRN PO FEVER >101F; Start 07/20/17 at 22:45 Acetaminophen/ Hydrocodone Bitart ([place]acl[place] 5-325 Mg) 1 tab Q4H PRN PO PAIN SCALE 1 TO 5; Start 07/20/17 at 22:45 Morphine Sulfate (Morphine Inj) 2 mg Q2H PRN IV PUSH PAIN SCALE 6 TO 10; Start 07/20/17 at 22:45 Famotidine (Pepcid Inj) 10 mg Q12HR IV PUSH Last administered on 07/22/17 08: 11; Start 07/21/17 at 09:00; Stop 07/22/17 at 11:12; Status DC Lorazepam (Ativan Inj) 1 mg Q1H PRN IV PUSH Agitation/Sedation; Start 07/20/17 at 22:45; Stop 07/23/17 at 07:42; Status DC Artificial Tears (Tears Naturale Opth Soln) 1 drop TID EACH EYE Last administered on 07/26/17 17:32; Start 07/21/17 at 09:00 Ondansetron HCl (Zofran Inj) 4 mg Q6H PRN IV PUSH NAUSEA OR VOMITING; Start at 22:45 Albuterol/ Ipratropium (Duoneb Neb) 1 ampule Q6HR NEB INH Last administered on 07/24/17 20:16; Start 07/21/17 at 04:00; Stop 07/25/17 at 03:59; Status DC Albuterol/ Ipratropium (Duoneb Neb) 1 ampule Q2HR NEB PRN INH WHEEZING Last administered on 07/25/17 13:55; Start 07/20/17 at 22:45 Heparin Sodium (Porcine) (Heparin Inj) 5,000 units Q8H SQ Last administered on 07/21/17 01:27; Start 07/21/17 at 00:00; Stop 07/21/17 at 17:35; Status DC Miscellaneous Information 1 [id number] XX ; Start 07/20/17 at 22:45 Chlorhexidine Gluconate (Chlorhexidine 2% Cloth) Taper DAILY@04 TOP Last administered on 07/28/17 04:00; Start 07/21/17 at 04:00; Stop 07/17/18 at 03: 59 Chlorhexidine Gluconate (Chlorhexidine 2% Cloth) 3 pack UNSCH PRN TOP HYGIENIC CARE; Start 07/20/17 at 22:45 Senna/Docusate Sodium (Pema-Colace) 1 tab BID PO Last administered on 09:40; Start 07/21/17 at 09:00 Magnesium Hydroxide (Milk Of Magnesia Liq) 30 ml Q12H PRN PO MILD - MODERATE CONSTIPATION; Start 07/20/17 at 22:45 Sennosides (Senokot) 17.2 mg Q12H PRN PO MODERATE - SEVERE CONSTIPATION Last administered on 07/22/17 21:30; Start 07/20/17 at 22:45 Bisacodyl (Dulcolax Supp) 10 mg DAILY PRN RECTAL SEVERE CONSITIPATION; Start 07/20/17 at 22:45 Lactulose (Lactulose Liq) 30 ml DAILY PRN PO SEVERE CONSITIPATION; Start at 22:45 Dextrose (D50w (Vial) Inj) 50 ml UNSCH PRN IV PUSH HYPOGLYCEMIA-SEE COMMENTS Last administered on 07/23/17 06:28; Start 07/21/17 at 00:30 Glucagon (Glucagon Inj) 1 mg UNSCH PRN OTHER HYPOGLYCEMIA-SEE COMMENTS; Start 07/21/17 at 00:30 Insulin Aspart (NovoLOG SUPPLEMENTAL SCALE) 1 ACHS SLIDING SCALE SQ ; Start at 08:00 Aspirin (Aspirin) 325 mg ONCE ONCE PO Last administered on 07/21/17 04:52; Start 07/21/17 at 04:30; Stop 07/21/17 at 04:31; Status DC Atorvastatin Calcium (Lipitor) 40 mg ONCE ONCE PO Last administered on 04:52; Start 07/21/17 at 04:30; Stop 07/21/17 at 04:31; Status DC Heparin Sodium/ Dextrose 250 ml @ 9 mls/hr TITRATE PRN IV Coagulation management Last administered on 07/25/17 09:40; Start 07/21/17 at 04:30; Stop 07/26/17 at 13:17; Status DC Magnesium Sulfate 2 gm/Sodium Chloride 104 ml @ 52 mls/hr ONCE ONCE IV Last administered on 07/21/17 15:12; Start 07/21/17 at 15:00; Stop 07/21/17 at 16:59 ; Status DC Famotidine (Pepcid Inj) 20 mg Q12HR IV PUSH Last administered on 07/28/17 09: 39; Start 07/22/17 at 21:00 Propofol 100 ml @ 2.22 mls/hr TITRATE PRN IV SEDATION Last administered on 06:47; Start 07/23/17 at 07:45; Stop 07/26/17 at 13:17; Status DC Quetiapine Fumarate (SEROquel) 100 mg Q8HR PO Last administered on 07/28/17 05:24; Start 07/23/17 at 07:45 Metoprolol Tartrate (Lopressor Inj) 5 mg Q4H IV PUSH Last administered on 07/26 00:02; Start 07/23/17 at 08:00; Stop 07/26/17 at 05:01; Status DC Metoprolol Tartrate (Lopressor Inj) 5 mg Q5M PRN IV PUSH for goal HR < 90 Last administered on 07/27/17 03:57; Start 07/23/17 at 07:45 Oxycodone HCl (Roxicodone Intensol Liq) 10 mg Q4H PO Last administered on 07/27 08:56; Start 07/23/17 at 08:00; Stop 07/27/17 at 11:06; Status DC Haloperidol Lactate (Haldol Inj) 5 mg Q4H PRN IV agitation Last administered on 07/26/17 05:27; Start 07/23/17 at 07:45 Metoprolol Tartrate (Lopressor) 50 mg Q12HR PO Last administered on 07/27/17 08:56; Start 07/24/17 at 10:00; Stop 07/27/17 at 13:19; Status DC Sodium Chloride 250 ml @ 15 mls/hr ONCE ONCE IV Last administered on 14:00; Start 07/25/17 at 14:00; Stop 07/26/17 at 06:39; Status DC Dopamine HCl/ Dextrose 500 ml @ As Directed STK-MED ONCE IV ; Start 07/21/17 at 05:00; Stop 07/25/17 at 16:08; Status DC Digoxin (Lanoxin Inj) 0.5 mg STK-MED ONCE IV PUSH ; Start 07/21/17 at 05:00; Stop 07/25/17 at 16:08; Status DC Metoprolol Tartrate (Lopressor Inj) 10 mg NOW ONCE IV PUSH Last administered on 07/26/17 03:17; Start 07/26/17 at 03:05; Stop 07/26/17 at 03:06; Status DC Metoprolol Tartrate (Lopressor Inj) 10 mg Q4H IV PUSH ; Start 07/26/17 at 05:00 ; Stop 07/26/17 at 05:02; Status DC Metoprolol Tartrate (Lopressor Inj) 10 mg Q4H IV PUSH Last administered on 22:04; Start 07/26/17 at 05:00; Stop 07/26/17 at 23:00; Status DC Sodium Chloride 250 ml @ 15 mls/hr ONCE ONCE IV ; Start 07/26/17 at 13:15; Stop 07/27/17 at 05:54; Status DC Aspirin (Aspirin Chew) 324 mg ONCE ONCE CHEW ; Start 07/26/17 at 14:00; Stop 07/26/17 at 14:01; Status DC Aspirin (Ecotrin Ec) 81 mg DAILY PO Last administered on 07/28/17 09:40; Start 07/27/17 at 09:00 Metoprolol Tartrate (Lopressor) 50 mg Q8HR PO Last administered on 07/28/17 05:24; Start 07/26/17 at 14:00 Oxycodone HCl (Roxicodone Intensol Liq) 10 mg Q4H PO ; Start 07/27/17 at 12:00 ; Stop 07/27/17 at 12:40; Status DC Oxycodone HCl (Roxicodone Intensol Liq) 10 mg Q8HR PO Last administered on 05:25; Start 07/27/17 at 14:00 Heparin Sodium (Porcine) (Heparin Inj) 6,000 units ONCE ONCE IV PUSH Last administered on 07/27/17 13:34; Start 07/27/17 at 12:45; Stop 07/27/17 at 13 :12; Status DC Heparin Sodium/ Dextrose 250 ml @ 13 mls/hr TITRATE PRN IV Coagulation management Last administered on 07/27/17 13:36; Start 07/27/17 at 12:45; Stop 07/28/17 at 08:43; Status DC Furosemide (Lasix Inj) 40 mg STK-MED ONCE .ROUTE ; Start 07/27/17 at 12:51; Stop 07/27/17 at 12:52; Status DC Furosemide (Lasix Inj) 40 mg STAT ONCE IV PUSH Last administered on 13:00; Start 07/27/17 at 13:00; Stop 07/27/17 at 13:15; Status DC Furosemide (Lasix Inj) 40 mg BID@09,18 IV PUSH Last administered on 07/28/17 09:00; Start 07/27/17 at 18:00 Iohexol (Omnipaque 350 Inj) 70 ml STK-MED ONCE IVCONTRAST Last administered on 07/27/17 14:11; Start 07/27/17 at 14:11; Stop 07/27/17 at 14:12; Status DC Labetalol HCl (Trandate Inj) 20 mg Q2H PRN IV SBP > 160 OR DBP > 110; Start at 19:45 A/P Assessment and Plan [id number] with presented with bradycardia found to have NSTEMI Agitated Delirium -admitted to ICU and was given propafol. -Off propofol since 07/25 -extubated 07/25 - will avoid precedex given recent bradycardia Acute Hypoxic Respiratory failure -Patient was intubated and was extubated successfully. Patient then had another episode of respiratory failure with hypoxia on 07/27 in which he was found to be in pulmonary edema. See treatment as below. -Resolved. Pulmonary edema, improving -CTA shows bilateral pleural effusion. Patient was given multiple dose of Lasix. -Continue with Lasix. Strict ins and outs. Continue to monitor clinically. Sinus Bradycardia- resolved. NSTEMI Sinus Tachycardia secondary to agitation - Dopamine drip has been weaned off. - Cardiology consulted, Dr. Ron following and since patient became hypoxic and went to pulmonary edema cardiac catheterization rescheduled for Monday. - 2-D echo: normal LVEF - Elevated troponin consistent with non-ST elevation IN per cardiology. - Stop heparin GTT, aspirin 324 mg by mouth now and then 81 mg by mouth daily. - trend troponins q8h, currently downtrending. Syncopal episode - CT head negative - Likely due to bradycardia, possible sick sinus syndrome, reportedly had slow A. fib on some telemetry strips per cardiology. Diabetes - Hold metformin due to lactic acidosis - Insulin sliding scale Lactic acidosis- improving. - Acute kidney injury - Hold metformin - Monitor trend - IV fluid hydration Acute kidney injury- improving. - Unknown baseline - Strict I's and O - Monitor trend of creatinine and electrolytes DVT GI prophylaxis - Teds SCDs - Subcutaneous heparin and Pepcid Discussed with patient's nurse Del and with Dr. Gross Discharge Planning Yesterday patient remain in the ICU secondary to acute respiratory failure with hypoxia due to pulmonary edema. Since that has improved patient can be transferred to the [facility]. 4 cardiac catheterization on Monday. Zohreh Strickland MD Jul 28, 2017 14:09
[2017-07-29] VITALS (11 sets, daily range): BP systolic 100–128; BP diastolic 56–78; PULSE 76–98; RESP 17–20; TEMP 97.9–99.1; O2SAT 92–98
[2017-07-29 05:33] LABS: MEAN CELL VOLUME 91.1 FL (80.0-100.0); MEAN CORPUSCULAR HEMOGLOBIN 31.4 PG (27.0-34.0); MEAN CORPUSCULAR HGB CONC 34.4 % (32.0-36.0); PLATELET COUNT 221 TH/MM3 (150-450); RED BLOOD COUNT 3.52 MIL/MM3 (4.50-5.90); RED CELL DISTRIBUTION WIDTH 14.4 % (11.6-17.2); REVIEW FLAG FINAL; WHITE BLOOD COUNT 7.5 TH/MM3 (4.0-11.0)
[2017-07-29 05:44] LABS: APTT (PATIENT) 29.1 SEC (24.3-30.1)
[2017-07-29] MEDS: METOPROLOL TARTRATE 50 MG TAB PO SCH ×3 (06:00→20:54)
[2017-07-29] MEDS: QUEtiapine FUMARATE 100 MG TAB PO SCH ×3 (06:00→20:54)
[2017-07-29] MEDS: oxyCODONE HCL ORAL CONC 5 MG/0.25 ML SYRINGE PO SCH ×3 (06:00→20:54)
[2017-07-29 06:02] LABS: BICARBONATE 32.4 MEQ/L (21.0-32.0)
[2017-07-29 06:06] LABS: POTASSIUM 2.8 MEQ/L (3.5-5.1)
[2017-07-29] MEDS: INSULIN ASPART SUPPLEMENTAL SCALE SQ SCH ×4 (08:00→20:55)
[2017-07-29] MEDS ORDERED: MAGNESIUM SULFATE INJ 2 GM in SODIUM CHLORIDE 0.9% INJ 96 ML IV PRN (08:30)
[2017-07-29] MEDS ORDERED: POTASSIUM CHLOR 20 MEQ PREMIX 100 ML IV PRN ×2 (08:30)
[2017-07-29] MEDS ORDERED: POTASSIUM CHLOR 40 MEQ PREMIX 100 ML IV PRN (08:30)
[2017-07-29] MEDS ORDERED: POTASSIUM CHLORIDE 25 MEQ EFFERVESCENT TAB PO PRN (08:30)
[2017-07-29] MEDS ORDERED: POTASSIUM PHOSPHATE INJ 30 MMOL in SODIUM CHLOR 0.9% 250 ML INJ 250 ML IV PRN (08:30)
[2017-07-29] MEDS ORDERED: POTASSIUM PHOSPHATE MONOBASIC 500 MG TAB PO/TUBE PRN (08:30)
[2017-07-29] MEDS ORDERED: SODIUM PHOSPHATE INJ 30 MMOL in SODIUM CHLOR 0.9% 250 ML INJ 240 ML IV PRN (08:30)
[2017-07-29] MEDS ORDERED: MAGNESIUM SULFATE INJ 4 GM in SODIUM CHLORIDE 0.9% INJ 92 ML IV PRN (08:30)
[2017-07-29] MEDS ORDERED: POTASSIUM PHOSPHATE MONOBASIC 500 MG TAB PO PRN (08:30)
[2017-07-29] MEDS ORDERED: MAGNESIUM OXIDE 400 MG TAB PO PRN (08:30)
[2017-07-29] MEDS: SODIUM CHLORIDE 0.9% FLUSH 10 ML FLUSH IV FLUSH SCH ×2 (08:46→20:55)
[2017-07-29] MEDS: FAMOTIDINE 20 MG/2 ML VIAL IV PUSH SCH ×2 (08:47→20:55)
[2017-07-29] MEDS: FUROSEMIDE 40 MG/4 ML VIAL IV PUSH SCH ×2 (08:47→17:36)
[2017-07-29] MEDS: ASPIRIN EC 81 MG TABEC PO SCH (08:47)
[2017-07-29] MEDS: DOCUSATE SODIUM 50 MG/SENNA 8.6 MG TAB PO SCH ×2 (08:47→20:55)
[2017-07-29] MEDS: ARTIFICIAL TEARS OPTH SOLN 15 ML BTL EACH EYE SCH ×3 (09:00→17:35)
[2017-07-29] MEDS: POTASSIUM CHLOR 40 MEQ PREMIX 100 ML IV PRN ×2 (09:20→11:34)
--- NOTE | 2017-07-29 11:32 | HHI.PR ---
Subjective Remarks f/u NSTEMI and pulmonary edema Patient is a lot more alert and eating his breakfast during the interview. Denied any chest pain, shortness of breathing, cough, nausea vomiting or lightheadedness or dizziness. His nurse is at the bedside during the interview. He has no complaints. Objective Vitals Vital Signs Date Time Temp Pulse Resp B/P (MAP) Pulse Ox O2 Delivery O2 Flow Rate FiO2 07/29/17 08:00 99.1 76 20 115/67 (83) 96 07/29/17 04:00 98.8 90 19 116/68 (84) 92 07/29/17 04:00 90 07/29/17 02:00 91 07/29/17 00:00 98.6 90 17 100/56 (71) 96 07/29/17 00:00 90 07/28/17 22:00 93 07/28/17 20:00 98.8 93 19 106/68 (81) 95 07/28/17 20:00 93 07/28/17 19:13 95 21 07/28/17 19:00 97 Room Air 07/28/17 18:00 111 07/28/17 16:00 94 07/28/17 16:00 98.7 94 15 153/94 (113) 99 07/28/17 14:00 92 07/28/17 12:00 98 07/28/17 12:00 98.3 98 17 156/87 (110) 99 I/O 07/28/17 07/28/17 07/28/17 07/29/17 07/29/17 07/29/17 06:59 14:59 22:59 06:59 14:59 22:59 Intake Total 120 ml 244 ml 480 ml Output Total 1475 ml 1800 ml Balance -1355 ml 244 ml -1320 ml Intake Oral 120 ml 480 ml IV Total 244 ml Output Urine Total 1475 ml 1800 ml Result Diagram: 07/29/17 0508 07/29/17 0508 Objective Remarks GENERAL: in NAD CARDIOVASCULAR: Regular rate and rhythm without murmurs, gallops, or rubs. neg LE edema. RESPIRATORY: Poor inspiratory effort. Mild basilar bilateral crackles. Otherwise no rhonchi or wheezing. No accessory muscle use. GASTROINTESTINAL: Abdomen soft, non-tender, nondistended. Medications and IVs Current Medications Sodium Chloride (NS Flush) 2 ml UNSCH PRN IVF FLUSH AFTER USING IV ACCESS; Start 07/20/17 at 20:00; Stop 07/20/17 at 23:04; Status DC Sodium Chloride 1,000 ml @ 1,000 mls/hr Q1H ONCE IV Last administered on 21:08; Start 07/20/17 at 19:47; Stop 07/20/17 at 20:46; Status DC Sodium Chloride 1,000 ml @ 999 mls/hr BOLUS ONCE IV Last administered on 07/20 21:08; Start 07/20/17 at 20:00; Stop 07/20/17 at 21:00; Status DC Midazolam HCl 100 ml @ As Directed STK-MED ONCE .ROUTE ; Start 07/20/17 at 20: 07; Stop 07/20/17 at 20:08; Status DC Fentanyl Citrate 250 ml @ As Directed STK-MED ONCE .ROUTE ; Start 07/20/17 at 20:07; Stop 07/20/17 at 20:08; Status DC Propofol 100 ml @ As Directed STK-MED ONCE .ROUTE ; Start 07/20/17 at 20:18; Stop 07/20/17 at 20:19; Status DC Fentanyl Citrate 250 ml @ 5 mls/hr TITRATE PRN IV SEDATION Last administered on 07/24/17 00:27; Start 07/20/17 at 20:45; Stop 07/24/17 at 20:08; Status DC Dopamine HCl/ Dextrose 500 ml @ 7.875 mls/ hr TITRATE PRN IV Blood Pressure Management Last administered on 07/20/17 21:15; Start 07/20/17 at 20:45; Stop 07/23/17 at 07:42; Status DC Midazolam HCl 100 ml @ 2 mls/hr TITRATE PRN IV SEDATION Last administered on 06:24; Start 07/20/17 at 20:45; Stop 07/23/17 at 07:42; Status DC Etomidate (Amidate Inj) 20 mg ONCE ONCE IV PUSH Last administered on 21:12; Start 07/20/17 at 20:45; Stop 07/20/17 at 20:46; Status DC Succinylcholine Chloride (Quelicin Inj) 100 mg ONCE ONCE IV PUSH Last administered on 07/20/17 21:12; Start 07/20/17 at 20:45; Stop 07/20/17 at 20:46 ; Status DC Vecuronium [place] (Norcuron 10 Mg Inj) 10 mg ONCE ONCE IV PUSH Last administered on 07/20/17 21:11; Start 07/20/17 at 20:45; Stop 07/20/17 at 20:46 ; Status DC Atropine Sulfate (Atropine Inj) 1 mg ONCE ONCE IV PUSH Last administered on 21:11; Start 07/20/17 at 20:45; Stop 07/20/17 at 20:46; Status DC Magnesium Sulfate/ Dextrose 100 ml @ 100 mls/hr Q1H IV Last administered on 22:49; Start 07/20/17 at 21:15; Stop 07/20/17 at 23:14; Status DC Vancomycin HCl 1000 mg/Sodium Chloride 250 ml @ 250 mls/hr ONCE STAT IV Last administered on 07/20/17 23:47; Start 07/20/17 at 21:32; Stop 07/20/17 at 22:31 ; Status DC Piperacillin Sod/ Tazobactam Sod 100 ml @ 200 mls/hr ONCE STAT IV Last administered on 07/20/17 21:38; Start 07/20/17 at 21:32; Stop 07/20/17 at 22:01 ; Status DC Sodium Chloride 1,000 ml @ 999 mls/hr BOLUS ONCE IV Last administered on 07/20 21:47; Start 07/20/17 at 21:45; Stop 07/20/17 at 22:45; Status DC Sodium Chloride 1,000 ml @ 999 mls/hr BOLUS ONCE IV Last administered on 07/20 21:47; Start 07/20/17 at 21:45; Stop 07/20/17 at 22:45; Status DC Sodium Chloride 1,000 ml @ 84 mls/hr [id number] IV Last administered on 06:28; Start 07/20/17 at 22:39; Stop 07/23/17 at 07:42; Status DC Sodium Chloride (NS Flush) 2 ml UNSCH PRN IV FLUSH FLUSH AFTER USING IV ACCESS ; Start 07/20/17 at 22:45 Sodium Chloride (NS Flush) 2 ml BID IV FLUSH Last administered on 07/29/17 08 :46; Start 07/21/17 at 09:00 Acetaminophen (Tylenol) 650 mg Q6H PRN PO FEVER >101F; Start 07/20/17 at 22:45 Acetaminophen/ Hydrocodone Bitart ([place] 5-325 Mg) 1 tab Q4H PRN PO PAIN SCALE 1 TO 5; Start 07/20/17 at 22:45 Morphine Sulfate (Morphine Inj) 2 mg Q2H PRN IV PUSH PAIN SCALE 6 TO 10; Start 07/20/17 at 22:45 Famotidine (Pepcid Inj) 10 mg Q12HR IV PUSH Last administered on 07/22/17 08: 11; Start 07/21/17 at 09:00; Stop 07/22/17 at 11:12; Status DC Lorazepam (Ativan Inj) 1 mg Q1H PRN IV PUSH Agitation/Sedation; Start 07/20/17 at 22:45; Stop 07/23/17 at 07:42; Status DC Artificial Tears (Tears Naturale Opth Soln) 1 drop TID EACH EYE Last administered on 07/26/17 17:32; Start 07/21/17 at 09:00 Ondansetron HCl (Zofran Inj) 4 mg Q6H PRN IV PUSH NAUSEA OR VOMITING; Start at 22:45 Albuterol/ Ipratropium (Duoneb Neb) 1 ampule Q6HR NEB INH Last administered on 07/24/17 20:16; Start 07/21/17 at 04:00; Stop 07/25/17 at 03:59; Status DC Albuterol/ Ipratropium (Duoneb Neb) 1 ampule Q2HR NEB PRN INH WHEEZING Last administered on 07/25/17 13:55; Start 07/20/17 at 22:45 Heparin Sodium (Porcine) (Heparin Inj) 5,000 units Q8H SQ Last administered on 07/21/17 01:27; Start 07/21/17 at 00:00; Stop 07/21/17 at 17:35; Status DC Miscellaneous Information 1 [id number] XX ; Start 07/20/17 at 22:45 Chlorhexidine Gluconate (Chlorhexidine 2% Cloth) Taper DAILY@04 TOP Last administered on 07/28/17 21:03; Start 07/21/17 at 04:00; Stop 07/17/18 at 03: 59 Chlorhexidine Gluconate (Chlorhexidine 2% Cloth) 3 pack UNSCH PRN TOP HYGIENIC CARE; Start 07/20/17 at 22:45 Senna/Docusate Sodium (Pema-Colace) 1 tab BID PO Last administered on 08:47; Start 07/21/17 at 09:00 Magnesium Hydroxide (Milk Of Magnesia Liq) 30 ml Q12H PRN PO MILD - MODERATE CONSTIPATION; Start 07/20/17 at 22:45 Sennosides (Senokot) 17.2 mg Q12H PRN PO MODERATE - SEVERE CONSTIPATION Last administered on 07/22/17 21:30; Start 07/20/17 at 22:45 Bisacodyl (Dulcolax Supp) 10 mg DAILY PRN RECTAL SEVERE CONSITIPATION; Start 07/20/17 at 22:45 Lactulose (Lactulose Liq) 30 ml DAILY PRN PO SEVERE CONSITIPATION; Start at 22:45 Dextrose (D50w (Vial) Inj) 50 ml UNSCH PRN IV PUSH HYPOGLYCEMIA-SEE COMMENTS Last administered on 07/23/17 06:28; Start 07/21/17 at 00:30 Glucagon (Glucagon Inj) 1 mg UNSCH PRN OTHER HYPOGLYCEMIA-SEE COMMENTS; Start 07/21/17 at 00:30 Insulin Aspart (NovoLOG SUPPLEMENTAL SCALE) 1 ACHS SLIDING SCALE SQ Last administered on 07/28/17 21:00; Start 07/21/17 at 08:00 Aspirin (Aspirin) 325 mg ONCE ONCE PO Last administered on 07/21/17 04:52; Start 07/21/17 at 04:30; Stop 07/21/17 at 04:31; Status DC Atorvastatin Calcium (Lipitor) 40 mg ONCE ONCE PO Last administered on 04:52; Start 07/21/17 at 04:30; Stop 07/21/17 at 04:31; Status DC Heparin Sodium/ Dextrose 250 ml @ 9 mls/hr TITRATE PRN IV Coagulation management Last administered on 07/25/17 09:40; Start 07/21/17 at 04:30; Stop 07/26/17 at 13:17; Status DC Magnesium Sulfate 2 gm/Sodium Chloride 104 ml @ 52 mls/hr ONCE ONCE IV Last administered on 07/21/17 15:12; Start 07/21/17 at 15:00; Stop 07/21/17 at 16:59 ; Status DC Famotidine (Pepcid Inj) 20 mg Q12HR IV PUSH Last administered on 07/29/17 08: 47; Start 07/22/17 at 21:00 Propofol 100 ml @ 2.22 mls/hr TITRATE PRN IV SEDATION Last administered on 06:47; Start 07/23/17 at 07:45; Stop 07/26/17 at 13:17; Status DC Quetiapine Fumarate (SEROquel) 100 mg Q8HR PO Last administered on 07/29/17 06:00; Start 07/23/17 at 07:45 Metoprolol Tartrate (Lopressor Inj) 5 mg Q4H IV PUSH Last administered on 07/26 00:02; Start 07/23/17 at 08:00; Stop 07/26/17 at 05:01; Status DC Metoprolol Tartrate (Lopressor Inj) 5 mg Q5M PRN IV PUSH for goal HR < 90 Last administered on 07/27/17 03:57; Start 07/23/17 at 07:45 Oxycodone HCl (Roxicodone Intensol Liq) 10 mg Q4H PO Last administered on 07/27 08:56; Start 07/23/17 at 08:00; Stop 07/27/17 at 11:06; Status DC Haloperidol Lactate (Haldol Inj) 5 mg Q4H PRN IV agitation Last administered on 07/26/17 05:27; Start 07/23/17 at 07:45 Metoprolol Tartrate (Lopressor) 50 mg Q12HR PO Last administered on 07/27/17 08:56; Start 07/24/17 at 10:00; Stop 07/27/17 at 13:19; Status DC Sodium Chloride 250 ml @ 15 mls/hr ONCE ONCE IV Last administered on 14:00; Start 07/25/17 at 14:00; Stop 07/26/17 at 06:39; Status DC Dopamine HCl/ Dextrose 500 ml @ As Directed STK-MED ONCE IV ; Start 07/21/17 at 05:00; Stop 07/25/17 at 16:08; Status DC Digoxin (Lanoxin Inj) 0.5 mg STK-MED ONCE IV PUSH ; Start 07/21/17 at 05:00; Stop 07/25/17 at 16:08; Status DC Metoprolol Tartrate (Lopressor Inj) 10 mg NOW ONCE IV PUSH Last administered on 07/26/17 03:17; Start 07/26/17 at 03:05; Stop 07/26/17 at 03:06; Status DC Metoprolol Tartrate (Lopressor Inj) 10 mg Q4H IV PUSH ; Start 07/26/17 at 05:00 ; Stop 07/26/17 at 05:02; Status DC Metoprolol Tartrate (Lopressor Inj) 10 mg Q4H IV PUSH Last administered on 22:04; Start 07/26/17 at 05:00; Stop 07/26/17 at 23:00; Status DC Sodium Chloride 250 ml @ 15 mls/hr ONCE ONCE IV ; Start 07/26/17 at 13:15; Stop 07/27/17 at 05:54; Status DC Aspirin (Aspirin Chew) 324 mg ONCE ONCE CHEW ; Start 07/26/17 at 14:00; Stop 07/26/17 at 14:01; Status DC Aspirin (Ecotrin Ec) 81 mg DAILY PO Last administered on 07/29/17 08:47; Start 07/27/17 at 09:00 Metoprolol Tartrate (Lopressor) 50 mg Q8HR PO Last administered on 07/29/17 06:00; Start 07/26/17 at 14:00 Oxycodone HCl (Roxicodone Intensol Liq) 10 mg Q4H PO ; Start 07/27/17 at 12:00 ; Stop 07/27/17 at 12:40; Status DC Oxycodone HCl (Roxicodone Intensol Liq) 10 mg Q8HR PO Last administered on 05:25; Start 07/27/17 at 14:00 Heparin Sodium (Porcine) (Heparin Inj) 6,000 units ONCE ONCE IV PUSH Last administered on 07/27/17 13:34; Start 07/27/17 at 12:45; Stop 07/27/17 at 13 :12; Status DC Heparin Sodium/ Dextrose 250 ml @ 13 mls/hr TITRATE PRN IV Coagulation management Last administered on 07/27/17 13:36; Start 07/27/17 at 12:45; Stop 07/28/17 at 08:43; Status DC Furosemide (Lasix Inj) 40 mg STK-MED ONCE .ROUTE ; Start 07/27/17 at 12:51; Stop 07/27/17 at 12:52; Status DC Furosemide (Lasix Inj) 40 mg STAT ONCE IV PUSH Last administered on 13:00; Start 07/27/17 at 13:00; Stop 07/27/17 at 13:15; Status DC Furosemide (Lasix Inj) 40 mg BID@09,18 IV PUSH Last administered on 07/29/17 08:47; Start 07/27/17 at 18:00 Iohexol (Omnipaque 350 Inj) 70 ml STK-MED ONCE IVCONTRAST Last administered on 07/27/17 14:11; Start 07/27/17 at 14:11; Stop 07/27/17 at 14:12; Status DC Labetalol HCl (Trandate Inj) 20 mg Q2H PRN IV SBP > 160 OR DBP > 110; Start at 19:45 Potassium Chloride 100 ml @ 50 mls/hr Q2H PRN IV For Potassium 2.8 - 3.2 mEq/ L Last administered on 07/29/17 09:20; Start 07/29/17 at 08:30 Potassium Chloride 100 ml @ 50 mls/hr Q2H PRN IV For Potassium 2.8 - 3.2 mEq/L ; Start 07/29/17 at 08:30 Potassium Bicarb/ Potassium Chloride (K-Lyte Cl Eff) 50 meq UNSCH PRN PO For Potassium 3.3 - 3.5 mEq/L; Start 07/29/17 at 08:30 Potassium Chloride 100 ml @ 25 mls/hr UNSCH PRN IV For Potassium 3.3 - 3.5 mEq /L; Start 07/29/17 at 08:30 Potassium Chloride 100 ml @ 50 mls/hr Q2H PRN IV For Potassium 3.3 - 3.5 mEq/L ; Start 07/29/17 at 08:30 Magnesium Sulfate 4 gm/Sodium Chloride 100 ml @ 50 mls/hr UNSCH PRN IV For Magnesium 0.9 - 1.1 mg/dL; Start 07/29/17 at 08:30 Magnesium Oxide (Mag-Ox) 800 mg UNSCH PRN PO For Magnesium 1.2 - 1.6 mg/dL; Start 07/29/17 at 08:30 Magnesium Sulfate 2 gm/Sodium Chloride 100 ml @ 50 mls/hr UNSCH PRN IV For Magnesium 1.2 - 1.6 mg/dL; Start 07/29/17 at 08:30 Potassium Phosphate (K-Phos) 2,000 mg Q4H PRN PO For Phosphorus < 2.5 mg/dL; Start 07/29/17 at 08:30 Sodium Phosphate 30 mmol/Sodium Chloride 250 ml @ 42 mls/hr UNSCH PRN IV For Phosphorus < 2.5 mg/dL; Start 07/29/17 at 08:30 Potassium Phosphate (K-Phos) 2,000 mg UNSCH PRN PO/TUBE SEE LABEL COMMENTS; Start 07/29/17 at 08:30 Potassium Phosphate 30 mmol/ Sodium Chloride 260 ml @ 42 mls/hr UNSCH PRN IV SEE LABEL COMMENTS; Start 07/29/17 at 08:30 A/P Assessment and Plan [id number] with presented with bradycardia found to have NSTEMI Agitated Delirium -admitted to ICU and was given propafol. -Off propofol since 07/25 -extubated 07/25 - will avoid precedex given recent bradycardia Acute Hypoxic Respiratory failure -Patient was intubated and was extubated successfully. Patient then had another episode of respiratory failure with hypoxia on 07/27 in which he was found to be in pulmonary edema. See treatment as below. -Resolved. Pulmonary edema, improving -CTA shows bilateral pleural effusion. Patient was given multiple dose of Lasix. -Continue with Lasix. Strict ins and outs. Continue to monitor clinically. Sinus Bradycardia- resolved. NSTEMI Sinus Tachycardia secondary to agitation - Dopamine drip has been weaned off. - Cardiology consulted, Dr. Ron following and since patient became hypoxic and went to pulmonary edema cardiac catheterization rescheduled for Monday. - 2-D echo: normal LVEF - Elevated troponin consistent with non-ST elevation [place] per cardiology. - Stop heparin GTT, aspirin 324 mg by mouth now and then 81 mg by mouth daily. - trend troponins q8h, currently downtrending. Syncopal episode - CT head negative - Likely due to bradycardia, possible sick sinus syndrome, reportedly had slow A. fib on some telemetry strips per cardiology. Diabetes - Hold metformin due to lactic acidosis - Insulin sliding scale Lactic acidosis- improving. - Acute kidney injury - Hold metformin - Monitor trend - IV fluid hydration Acute kidney injury- improving. - Unknown baseline - Strict I's and O - Monitor trend of creatinine and electrolytes Hypokalemia -Since patient has normal renal function will put ICU electrolyte protocol and. DVT GI prophylaxis - Teds SCDs - Subcutaneous heparin and Pepcid Discussed with patient's nurse Del and with Dr. Gross Discharge Planning Still waiting for a CIC bed. Patient scheduled for cart catheterization on Monday. Zohreh Strickland MD Jul 29, 2017 11:31
[2017-07-30] VITALS (26 sets, daily range): BP systolic 101–128; BP diastolic 58–84; PULSE 84–107; RESP 17–20; TEMP 97.6–99; O2SAT 98–100
[2017-07-30] MEDS: CHLORHEXIDINE GLUCONATE 2 % 1 PACK (2 CLOTHS) TOP SCH (04:00)
[2017-07-30] MEDS: METOPROLOL TARTRATE 50 MG TAB PO SCH ×3 (05:40→21:13)
[2017-07-30] MEDS: QUEtiapine FUMARATE 100 MG TAB PO SCH ×3 (05:43→21:13)
[2017-07-30] MEDS: oxyCODONE HCL ORAL CONC 5 MG/0.25 ML SYRINGE PO SCH ×3 (05:43→21:14)
[2017-07-30 08:33] LABS: APTT (PATIENT) 29.6 SEC (24.3-30.1); HEMATOCRIT 32.2 % (39.0-51.0); MEAN CELL VOLUME 91.7 FL (80.0-100.0); MEAN CORPUSCULAR HEMOGLOBIN 30.7 PG (27.0-34.0); MEAN CORPUSCULAR HGB CONC 33.5 % (32.0-36.0); PLATELET COUNT 249 TH/MM3 (150-450); RED BLOOD COUNT 3.51 MIL/MM3 (4.50-5.90); RED CELL DISTRIBUTION WIDTH 14.9 % (11.6-17.2); REVIEW FLAG FINAL; WHITE BLOOD COUNT 6.6 TH/MM3 (4.0-11.0)
[2017-07-30] MEDS: INSULIN ASPART SUPPLEMENTAL SCALE SQ SCH ×4 (09:03→21:00)
[2017-07-30] MEDS: ARTIFICIAL TEARS OPTH SOLN 15 ML BTL EACH EYE SCH ×3 (09:03→17:28)
[2017-07-30] MEDS: ASPIRIN EC 81 MG TABEC PO SCH (09:04)
[2017-07-30] MEDS: FUROSEMIDE 40 MG/4 ML VIAL IV PUSH SCH ×2 (09:04→17:27)
[2017-07-30] MEDS: FAMOTIDINE 20 MG/2 ML VIAL IV PUSH SCH ×2 (09:04→21:14)
[2017-07-30] MEDS: DOCUSATE SODIUM 50 MG/SENNA 8.6 MG TAB PO SCH ×2 (09:04→21:07)
[2017-07-30] MEDS: SODIUM CHLORIDE 0.9% FLUSH 10 ML FLUSH IV FLUSH SCH ×2 (09:05→21:14)
--- NOTE | 2017-07-30 10:23 | HHI.PR ---
Subjective Remarks f/u for NSTEMI and pulmonary edema Patient found sitting at the bedside and his breakfast. He has no complaints. Denied any chest pain, shortness of breathing, palpitation, lightheadedness or dizziness. Patient stated he is doing very well. Patient's nurse is at the bedside during the interview. Objective Vitals Vital Signs Date Time Temp Pulse Resp B/P (MAP) Pulse Ox O2 Delivery O2 Flow Rate FiO2 07/30/17 10:00 96 07/30/17 09:45 93 07/30/17 08:55 85 07/30/17 08:00 98.2 88 17 124/84 (97) 99 07/30/17 08:00 Room Air 07/30/17 07:00 85 07/30/17 06:00 91 07/30/17 05:00 90 07/30/17 04:00 98.6 89 18 101/58 (72) 98 07/30/17 04:00 Room Air 07/30/17 04:00 89 07/30/17 03:00 91 07/30/17 02:00 89 07/30/17 01:00 87 07/30/17 00:00 97 07/30/17 00:00 99.0 97 20 107/70 (82) 98 07/30/17 00:00 Room Air 07/29/17 18:00 90 07/29/17 16:30 98.3 98 20 128/78 (95) 98 07/29/17 16:00 92 07/29/17 14:00 98 07/29/17 12:05 97.9 98 18 105/76 (86) 98 07/29/17 12:00 98 I/O 07/29/17 07/29/17 07/29/17 07/30/17 07/30/17 07/30/17 07:00 15:00 23:00 07:00 15:00 23:00 Intake Total 1060 ml Output Total 3700 ml 500 ml Balance -2640 ml -500 ml Intake Oral 1060 ml Output Urine Total 3700 ml 500 ml # Bowel Movements 0 0 Result Diagram: 07/30/17 0656 07/29/17 1800 Imaging Last Impressions Chest X-Ray 07/27/17 0000 Signed Impressions: Service Date/Time: July 12:48 - CONCLUSION: 1. Development of right effusion and bibasilar intraalveolar infiltrates suggesting pulmonary edema. Anibal Alatorre Jr., MD CT Angiography 07/27/17 0000 Signed Impressions: Service Date/Time: July 13:57 - CONCLUSION: 1. Exam severely limited by motion artifact 2. Large bilateral effusions 3. Diffuse edema versus pneumonia 4. No evidence of pulmonary embolism. Esvin Dotson MD Abdomen/Pelvis CT [id number] Signed Impressions: Service Date/Time: July 22:18 - CONCLUSION: 1. Mild amount of ascites seen around the liver. 2. Mild thickening of the gallbladder wall. This is nonspecific. Calcified gallstones are not seen. 3. Moderate distension of the urinary bladder. There is Naqvi catheter in the urinary bladder. Gary Ray MD Head CT [id number] Signed Impressions: Service Date/Time: July 22:14 - CONCLUSION: 1. No acute intracranial abnormality. 2. 2.8 cm hyperdense area seen in the superficial fat at the lower occipital/upper neck subcutaneous fat likely representing a hematoma. Gary Ray MD Chest CT 07/20/17 0000 Signed Impressions: Service Date/Time: July 22:18 - CONCLUSION: Bibasilar areas of consolidation or atelectasis. Gary Ray MD Objective Remarks GENERAL: in NAD CARDIOVASCULAR: Regular rate and rhythm without murmurs, gallops, or rubs. neg LE edema. RESPIRATORY: CTA B/L no rhonchi or wheezing. No accessory muscle use. GASTROINTESTINAL: Abdomen soft, non-tender, nondistended. Medications and IVs Current Medications Sodium Chloride (NS Flush) 2 ml UNSCH PRN IVF FLUSH AFTER USING IV ACCESS; Start 07/20/17 at 20:00; Stop 07/20/17 at 23:04; Status DC Sodium Chloride 1,000 ml @ 1,000 mls/hr Q1H ONCE IV Last administered on 21:08; Start 07/20/17 at 19:47; Stop 07/20/17 at 20:46; Status DC Sodium Chloride 1,000 ml @ 999 mls/hr BOLUS ONCE IV Last administered on 07/20 21:08; Start 07/20/17 at 20:00; Stop 07/20/17 at 21:00; Status DC Midazolam HCl 100 ml @ As Directed STK-MED ONCE .ROUTE ; Start 07/20/17 at 20: 07; Stop 07/20/17 at 20:08; Status DC Fentanyl Citrate 250 ml @ As Directed STK-MED ONCE .ROUTE ; Start 07/20/17 at 20:07; Stop 07/20/17 at 20:08; Status DC Propofol 100 ml @ As Directed STK-MED ONCE .ROUTE ; Start 07/20/17 at 20:18; Stop 07/20/17 at 20:19; Status DC Fentanyl Citrate 250 ml @ 5 mls/hr TITRATE PRN IV SEDATION Last administered on 07/24/17 00:27; Start 07/20/17 at 20:45; Stop 07/24/17 at 20:08; Status DC Dopamine HCl/ Dextrose 500 ml @ 7.875 mls/ hr TITRATE PRN IV Blood Pressure Management Last administered on 07/20/17 21:15; Start 07/20/17 at 20:45; Stop 07/23/17 at 07:42; Status DC Midazolam HCl 100 ml @ 2 mls/hr TITRATE PRN IV SEDATION Last administered on 06:24; Start 07/20/17 at 20:45; Stop 07/23/17 at 07:42; Status DC Etomidate (Amidate Inj) 20 mg ONCE ONCE IV PUSH Last administered on 21:12; Start 07/20/17 at 20:45; Stop 07/20/17 at 20:46; Status DC Succinylcholine Chloride (Quelicin Inj) 100 mg ONCE ONCE IV PUSH Last administered on 07/20/17 21:12; Start 07/20/17 at 20:45; Stop 07/20/17 at 20:46 ; Status DC Vecuronium Gilliam (Norcuron 10 Mg Inj) 10 mg ONCE ONCE IV PUSH Last administered on 07/20/17 21:11; Start 07/20/17 at 20:45; Stop 07/20/17 at 20:46 ; Status DC Atropine Sulfate (Atropine Inj) 1 mg ONCE ONCE IV PUSH Last administered on 21:11; Start 07/20/17 at 20:45; Stop 07/20/17 at 20:46; Status DC Magnesium Sulfate/ Dextrose 100 ml @ 100 mls/hr Q1H IV Last administered on 22:49; Start 07/20/17 at 21:15; Stop 07/20/17 at 23:14; Status DC Vancomycin HCl 1000 mg/Sodium Chloride 250 ml @ 250 mls/hr ONCE STAT IV Last administered on 07/20/17 23:47; Start 07/20/17 at 21:32; Stop 07/20/17 at 22:31 ; Status DC Piperacillin Sod/ Tazobactam Sod 100 ml @ 200 mls/hr ONCE STAT IV Last administered on 07/20/17 21:38; Start 07/20/17 at 21:32; Stop 07/20/17 at 22:01 ; Status DC Sodium Chloride 1,000 ml @ 999 mls/hr BOLUS ONCE IV Last administered on 07/20 21:47; Start 07/20/17 at 21:45; Stop 07/20/17 at 22:45; Status DC Sodium Chloride 1,000 ml @ 999 mls/hr BOLUS ONCE IV Last administered on 07/20 21:47; Start 07/20/17 at 21:45; Stop 07/20/17 at 22:45; Status DC Sodium Chloride 1,000 ml @ 84 mls/hr [id number] IV Last administered on 06:28; Start 07/20/17 at 22:39; Stop 07/23/17 at 07:42; Status DC Sodium Chloride (NS Flush) 2 ml UNSCH PRN IV FLUSH FLUSH AFTER USING IV ACCESS ; Start 07/20/17 at 22:45 Sodium Chloride (NS Flush) 2 ml BID IV FLUSH Last administered on 07/30/17 09 :05; Start 07/21/17 at 09:00 Acetaminophen (Tylenol) 650 mg Q6H PRN PO FEVER >101F; Start 07/20/17 at 22:45 Acetaminophen/ Hydrocodone Bitart ([place] 5-325 Mg) 1 tab Q4H PRN PO PAIN SCALE 1 TO 5; Start 07/20/17 at 22:45 Morphine Sulfate (Morphine Inj) 2 mg Q2H PRN IV PUSH PAIN SCALE 6 TO 10; Start 07/20/17 at 22:45 Famotidine (Pepcid Inj) 10 mg Q12HR IV PUSH Last administered on 07/22/17 08: 11; Start 07/21/17 at 09:00; Stop 07/22/17 at 11:12; Status DC Lorazepam (Ativan Inj) 1 mg Q1H PRN IV PUSH Agitation/Sedation; Start 07/20/17 at 22:45; Stop 07/23/17 at 07:42; Status DC Artificial Tears (Tears Naturale Opth Soln) 1 drop TID EACH EYE Last administered on 07/30/17 09:03; Start 07/21/17 at 09:00 Ondansetron HCl (Zofran Inj) 4 mg Q6H PRN IV PUSH NAUSEA OR VOMITING; Start at 22:45 Albuterol/ Ipratropium (Duoneb Neb) 1 ampule Q6HR NEB INH Last administered on 07/24/17 20:16; Start 07/21/17 at 04:00; Stop 07/25/17 at 03:59; Status DC Albuterol/ Ipratropium (Duoneb Neb) 1 ampule Q2HR NEB PRN INH WHEEZING Last administered on 07/25/17 13:55; Start 07/20/17 at 22:45 Heparin Sodium (Porcine) (Heparin Inj) 5,000 units Q8H SQ Last administered on 07/21/17 01:27; Start 07/21/17 at 00:00; Stop 07/21/17 at 17:35; Status DC Miscellaneous Information 1 [id number] XX ; Start 07/20/17 at 22:45 Chlorhexidine Gluconate (Chlorhexidine 2% Cloth) Taper DAILY@04 TOP Last administered on 07/30/17 04:00; Start 07/21/17 at 04:00; Stop 07/17/18 at 03: 59 Chlorhexidine Gluconate (Chlorhexidine 2% Cloth) 3 pack UNSCH PRN TOP HYGIENIC CARE; Start 07/20/17 at 22:45 Senna/Docusate Sodium (Pema-Colace) 1 tab BID PO Last administered on 09:04; Start 07/21/17 at 09:00 Magnesium Hydroxide (Milk Of Magnesia Liq) 30 ml Q12H PRN PO MILD - MODERATE CONSTIPATION; Start 07/20/17 at 22:45 Sennosides (Senokot) 17.2 mg Q12H PRN PO MODERATE - SEVERE CONSTIPATION Last administered on 07/22/17 21:30; Start 07/20/17 at 22:45 Bisacodyl (Dulcolax Supp) 10 mg DAILY PRN RECTAL SEVERE CONSITIPATION; Start 07/20/17 at 22:45 Lactulose (Lactulose Liq) 30 ml DAILY PRN PO SEVERE CONSITIPATION; Start at 22:45 Dextrose (D50w (Vial) Inj) 50 ml UNSCH PRN IV PUSH HYPOGLYCEMIA-SEE COMMENTS Last administered on 07/23/17 06:28; Start 07/21/17 at 00:30 Glucagon (Glucagon Inj) 1 mg UNSCH PRN OTHER HYPOGLYCEMIA-SEE COMMENTS; Start 07/21/17 at 00:30 Insulin Aspart (NovoLOG SUPPLEMENTAL SCALE) 1 ACHS SLIDING SCALE SQ Last administered on 07/30/17 09:03; Start 07/21/17 at 08:00 Aspirin (Aspirin) 325 mg ONCE ONCE PO Last administered on 07/21/17 04:52; Start 07/21/17 at 04:30; Stop 07/21/17 at 04:31; Status DC Atorvastatin Calcium (Lipitor) 40 mg ONCE ONCE PO Last administered on 04:52; Start 07/21/17 at 04:30; Stop 07/21/17 at 04:31; Status DC Heparin Sodium/ Dextrose 250 ml @ 9 mls/hr TITRATE PRN IV Coagulation management Last administered on 07/25/17 09:40; Start 07/21/17 at 04:30; Stop 07/26/17 at 13:17; Status DC Magnesium Sulfate 2 gm/Sodium Chloride 104 ml @ 52 mls/hr ONCE ONCE IV Last administered on 07/21/17 15:12; Start 07/21/17 at 15:00; Stop 07/21/17 at 16:59 ; Status DC Famotidine (Pepcid Inj) 20 mg Q12HR IV PUSH Last administered on 07/30/17 09: 04; Start 07/22/17 at 21:00 Propofol 100 ml @ 2.22 mls/hr TITRATE PRN IV SEDATION Last administered on 06:47; Start 07/23/17 at 07:45; Stop 07/26/17 at 13:17; Status DC Quetiapine Fumarate (SEROquel) 100 mg Q8HR PO Last administered on 07/29/17 20:54; Start 07/23/17 at 07:45 Metoprolol Tartrate (Lopressor Inj) 5 mg Q4H IV PUSH Last administered on 07/26 00:02; Start 07/23/17 at 08:00; Stop 07/26/17 at 05:01; Status DC Metoprolol Tartrate (Lopressor Inj) 5 mg Q5M PRN IV PUSH for goal HR < 90 Last administered on 07/27/17 03:57; Start 07/23/17 at 07:45 Oxycodone HCl (Roxicodone Intensol Liq) 10 mg Q4H PO Last administered on 07/27 08:56; Start 07/23/17 at 08:00; Stop 07/27/17 at 11:06; Status DC Haloperidol Lactate (Haldol Inj) 5 mg Q4H PRN IV agitation Last administered on 07/26/17 05:27; Start 07/23/17 at 07:45 Metoprolol Tartrate (Lopressor) 50 mg Q12HR PO Last administered on 07/27/17 08:56; Start 07/24/17 at 10:00; Stop 07/27/17 at 13:19; Status DC Sodium Chloride 250 ml @ 15 mls/hr ONCE ONCE IV Last administered on 14:00; Start 07/25/17 at 14:00; Stop 07/26/17 at 06:39; Status DC Dopamine HCl/ Dextrose 500 ml @ As Directed STK-MED ONCE IV ; Start 07/21/17 at 05:00; Stop 07/25/17 at 16:08; Status DC Digoxin (Lanoxin Inj) 0.5 mg STK-MED ONCE IV PUSH ; Start 07/21/17 at 05:00; Stop 07/25/17 at 16:08; Status DC Metoprolol Tartrate (Lopressor Inj) 10 mg NOW ONCE IV PUSH Last administered on 07/26/17 03:17; Start 07/26/17 at 03:05; Stop 07/26/17 at 03:06; Status DC Metoprolol Tartrate (Lopressor Inj) 10 mg Q4H IV PUSH ; Start 07/26/17 at 05:00 ; Stop 07/26/17 at 05:02; Status DC Metoprolol Tartrate (Lopressor Inj) 10 mg Q4H IV PUSH Last administered on 22:04; Start 07/26/17 at 05:00; Stop 07/26/17 at 23:00; Status DC Sodium Chloride 250 ml @ 15 mls/hr ONCE ONCE IV ; Start 07/26/17 at 13:15; Stop 07/27/17 at 05:54; Status DC Aspirin (Aspirin Chew) 324 mg ONCE ONCE CHEW ; Start 07/26/17 at 14:00; Stop 07/26/17 at 14:01; Status DC Aspirin (Ecotrin Ec) 81 mg DAILY PO Last administered on 07/30/17 09:04; Start 07/27/17 at 09:00 Metoprolol Tartrate (Lopressor) 50 mg Q8HR PO Last administered on 07/30/17 05:40; Start 07/26/17 at 14:00 Oxycodone HCl (Roxicodone Intensol Liq) 10 mg Q4H PO ; Start 07/27/17 at 12:00 ; Stop 07/27/17 at 12:40; Status DC Oxycodone HCl (Roxicodone Intensol Liq) 10 mg Q8HR PO Last administered on 14:26; Start 07/27/17 at 14:00 Heparin Sodium (Porcine) (Heparin Inj) 6,000 units ONCE ONCE IV PUSH Last administered on 07/27/17 13:34; Start 07/27/17 at 12:45; Stop 07/27/17 at 13 :12; Status DC Heparin Sodium/ Dextrose 250 ml @ 13 mls/hr TITRATE PRN IV Coagulation management Last administered on 07/27/17 13:36; Start 07/27/17 at 12:45; Stop 07/28/17 at 08:43; Status DC Furosemide (Lasix Inj) 40 mg STK-MED ONCE .ROUTE ; Start 07/27/17 at 12:51; Stop 07/27/17 at 12:52; Status DC Furosemide (Lasix Inj) 40 mg STAT ONCE IV PUSH Last administered on 13:00; Start 07/27/17 at 13:00; Stop 07/27/17 at 13:15; Status DC Furosemide (Lasix Inj) 40 mg BID@09,18 IV PUSH Last administered on 07/30/17 09:04; Start 07/27/17 at 18:00 Iohexol (Omnipaque 350 Inj) 70 ml STK-MED ONCE IVCONTRAST Last administered on 07/27/17 14:11; Start 07/27/17 at 14:11; Stop 07/27/17 at 14:12; Status DC Labetalol HCl (Trandate Inj) 20 mg Q2H PRN IV SBP > 160 OR DBP > 110; Start at 19:45 Potassium Chloride 100 ml @ 50 mls/hr Q2H PRN IV For Potassium 2.8 - 3.2 mEq/ L Last administered on 07/29/17 11:34; Start 07/29/17 at 08:30; Stop at 07:41; Status DC Potassium Chloride 100 ml @ 50 mls/hr Q2H PRN IV For Potassium 2.8 - 3.2 mEq/L ; Start 07/29/17 at 08:30; Stop 07/30/17 at 07:41; Status DC Potassium Bicarb/ Potassium Chloride (K-Lyte Cl Eff) 50 meq UNSCH PRN PO For Potassium 3.3 - 3.5 mEq/L; Start 07/29/17 at 08:30; Stop 07/30/17 at 07:41; Status DC Potassium Chloride 100 ml @ 25 mls/hr UNSCH PRN IV For Potassium 3.3 - 3.5 mEq /L Last administered on 07/29/17 18:56; Start 07/29/17 at 08:30; Stop at 07:41; Status DC Potassium Chloride 100 ml @ 50 mls/hr Q2H PRN IV For Potassium 3.3 - 3.5 mEq/L ; Start 07/29/17 at 08:30; Stop 07/30/17 at 07:41; Status DC Magnesium Sulfate 4 gm/Sodium Chloride 100 ml @ 50 mls/hr UNSCH PRN IV For Magnesium 0.9 - 1.1 mg/dL; Start 07/29/17 at 08:30; Stop 07/30/17 at 07:41; Status DC Magnesium Oxide (Mag-Ox) 800 mg UNSCH PRN PO For Magnesium 1.2 - 1.6 mg/dL; Start 07/29/17 at 08:30; Stop 07/30/17 at 07:41; Status DC Magnesium Sulfate 2 gm/Sodium Chloride 100 ml @ 50 mls/hr UNSCH PRN IV For Magnesium 1.2 - 1.6 mg/dL; Start 07/29/17 at 08:30; Stop 07/30/17 at 07:41; Status DC Potassium Phosphate (K-Phos) 2,000 mg Q4H PRN PO For Phosphorus < 2.5 mg/dL; Start 07/29/17 at 08:30; Stop 07/30/17 at 07:41; Status DC Sodium Phosphate 30 mmol/Sodium Chloride 250 ml @ 42 mls/hr UNSCH PRN IV For Phosphorus < 2.5 mg/dL; Start 07/29/17 at 08:30; Stop 07/30/17 at 07:41; Status DC Potassium Phosphate (K-Phos) 2,000 mg UNSCH PRN PO/TUBE SEE LABEL COMMENTS; Start 07/29/17 at 08:30; Stop 07/30/17 at 07:41; Status DC Potassium Phosphate 30 mmol/ Sodium Chloride 260 ml @ 42 mls/hr UNSCH PRN IV SEE LABEL COMMENTS; Start 07/29/17 at 08:30; Stop 07/30/17 at 07:41; Status DC A/P Assessment and Plan [id number] with presented with bradycardia found to have NSTEMI Agitated Delirium -admitted to ICU and was given propafol. -Off propofol since 07/25 -extubated 07/25 - will avoid precedex given recent bradycardia Acute Hypoxic Respiratory failure -Patient was intubated and was extubated successfully. Patient then had another episode of respiratory failure with hypoxia on 07/27 in which he was found to be in pulmonary edema. See treatment as below. -Resolved. Pulmonary edema, improving -CTA shows bilateral pleural effusion. Patient was given multiple dose of Lasix. -Continue with Lasix. Strict ins and outs. Continue to monitor clinically. Sinus Bradycardia- resolved. NSTEMI Sinus Tachycardia secondary to agitation - Dopamine drip has been weaned off. - Cardiology consulted, Dr. Ron following and since patient became hypoxic and went to pulmonary edema cardiac catheterization scheduled for tomorrow. - 2-D echo: normal LVEF - Elevated troponin consistent with non-ST elevation IA per cardiology. - Stop heparin GTT, aspirin 324 mg by mouth now and then 81 mg by mouth daily. - trend troponins q8h, currently downtrending. Syncopal episode - CT head negative - Likely due to bradycardia, possible sick sinus syndrome, reportedly had slow A. fib on some telemetry strips per cardiology. Diabetes - Hold metformin due to lactic acidosis - Insulin sliding scale Lactic acidosis- improving. - Acute kidney injury - Hold metformin - Monitor trend - IV fluid hydration Acute kidney injury- improving. - Unknown baseline - Strict I's and O - Monitor trend of creatinine and electrolytes Hypokalemia -Since patient has normal renal function will put ICU electrolyte protocol and. DVT GI prophylaxis - Teds SCDs - Subcutaneous heparin and Pepcid Dealt with patient's nurse and stated that can take central line out once peripheral IV access is established. Can also remove Naqvi. Discharge Planning Patient scheduled for cardiac catheterization tomorrow. Zohreh Strickland MD Jul 30, 2017 10:23
[2017-07-31] VITALS (26 sets, daily range): BP systolic 81–126; BP diastolic 49–82; PULSE 80–101; RESP 18–22; TEMP 97.7–99; O2SAT 97–100
[2017-07-31] MEDS: CHLORHEXIDINE GLUCONATE 2 % 1 PACK (2 CLOTHS) TOP SCH (04:00)
[2017-07-31] MEDS: METOPROLOL TARTRATE 50 MG TAB PO SCH ×3 (05:21→22:20)
[2017-07-31] MEDS: QUEtiapine FUMARATE 100 MG TAB PO SCH ×3 (05:21→22:20)
[2017-07-31] MEDS: oxyCODONE HCL ORAL CONC 5 MG/0.25 ML SYRINGE PO SCH ×3 (05:21→22:19)
[2017-07-31 06:35] LABS: APTT (PATIENT) 28.1 SEC (24.3-30.1)
[2017-07-31] MEDS: INSULIN ASPART SUPPLEMENTAL SCALE SQ SCH ×4 (08:00→21:00)
[2017-07-31] MEDS: SODIUM CHLORIDE 0.9% FLUSH 10 ML FLUSH IV FLUSH SCH ×2 (09:06→22:20)
[2017-07-31] MEDS: DOCUSATE SODIUM 50 MG/SENNA 8.6 MG TAB PO SCH ×2 (09:06→22:20)
[2017-07-31] MEDS: ARTIFICIAL TEARS OPTH SOLN 15 ML BTL EACH EYE SCH ×3 (09:06→16:45)
[2017-07-31] MEDS: FUROSEMIDE 40 MG/4 ML VIAL IV PUSH SCH ×2 (09:07→16:44)
[2017-07-31] MEDS: FAMOTIDINE 20 MG/2 ML VIAL IV PUSH SCH ×2 (09:07→22:19)
[2017-07-31] MEDS: ASPIRIN EC 81 MG TABEC PO SCH (09:07)
--- NOTE | 2017-07-31 11:55 | HHI.PR ---
Subjective Remarks f/u for NSTEMI Patient scheduled for cardiac catheterization today. Denied any chest pain, palpitation, shortness of breathing, lightheadedness or dizziness. He is very anxious to get procedure done today. His nurse and at the bedside during the interview. Objective Vitals Vital Signs Date Time Temp Pulse Resp B/P (MAP) Pulse Ox O2 Delivery O2 Flow Rate FiO2 07/31/17 10:00 100 07/31/17 09:00 84 07/31/17 08:00 86 07/31/17 08:00 99.0 88 18 115/76 (89) 98 07/31/17 08:00 98 Room Air 07/31/17 07:00 90 07/31/17 06:00 84 07/31/17 05:00 87 07/31/17 04:00 98.0 86 18 81/49 (60) 99 07/31/17 04:00 86 07/31/17 04:00 Room Air 07/31/17 03:00 87 07/31/17 02:00 89 07/31/17 01:00 80 07/31/17 00:00 98.2 95 18 125/68 (87) 98 07/31/17 00:00 95 07/31/17 00:00 Room Air 07/30/17 23:00 93 07/30/17 22:00 89 07/30/17 21:00 93 07/30/17 20:00 101 07/30/17 20:00 97.9 101 20 128/79 (95) 99 07/30/17 20:00 Room Air 07/30/17 18:08 100 07/30/17 17:43 107 07/30/17 16:05 93 07/30/17 15:04 Room Air 07/30/17 15:04 97.6 100 17 109/73 (85) 100 07/30/17 15:00 98 07/30/17 14:36 104 07/30/17 13:04 89 07/30/17 12:16 95 07/30/17 11:54 98.4 84 17 120/80 (93) 99 07/30/17 11:54 Room Air I/O 07/30/17 07/30/17 07/30/17 07/31/17 07/31/17 07/31/17 07:00 15:00 23:00 07:00 15:00 23:00 Intake Total 2050 ml 480 ml Output Total 500 ml 1350 ml 1000 ml Balance -500 ml 700 ml -520 ml Intake Oral 2050 ml 480 ml Output Urine Total 500 ml 1350 ml 1000 ml # Bowel Movements 0 0 0 Result Diagram: 07/30/17 0656 07/29/17 1800 Objective Remarks GENERAL: in NAD CARDIOVASCULAR: Regular rate and rhythm without murmurs, gallops, or rubs. neg LE edema. RESPIRATORY: Bilateral basilar crackles. No accessory muscle use. GASTROINTESTINAL: Abdomen soft, non-tender, nondistended. Medications and IVs Current Medications Sodium Chloride (NS Flush) 2 ml UNSCH PRN IVF FLUSH AFTER USING IV ACCESS; Start 07/20/17 at 20:00; Stop 07/20/17 at 23:04; Status DC Sodium Chloride 1,000 ml @ 1,000 mls/hr Q1H ONCE IV Last administered on 21:08; Start 07/20/17 at 19:47; Stop 07/20/17 at 20:46; Status DC Sodium Chloride 1,000 ml @ 999 mls/hr BOLUS ONCE IV Last administered on 07/20 21:08; Start 07/20/17 at 20:00; Stop 07/20/17 at 21:00; Status DC Midazolam HCl 100 ml @ As Directed STK-MED ONCE .ROUTE ; Start 07/20/17 at 20: 07; Stop 07/20/17 at 20:08; Status DC Fentanyl Citrate 250 ml @ As Directed STK-MED ONCE .ROUTE ; Start 07/20/17 at 20:07; Stop 07/20/17 at 20:08; Status DC Propofol 100 ml @ As Directed STK-MED ONCE .ROUTE ; Start 07/20/17 at 20:18; Stop 07/20/17 at 20:19; Status DC Fentanyl Citrate 250 ml @ 5 mls/hr TITRATE PRN IV SEDATION Last administered on 07/24/17 00:27; Start 07/20/17 at 20:45; Stop 07/24/17 at 20:08; Status DC Dopamine HCl/ Dextrose 500 ml @ 7.875 mls/ hr TITRATE PRN IV Blood Pressure Management Last administered on 07/20/17 21:15; Start 07/20/17 at 20:45; Stop 07/23/17 at 07:42; Status DC Midazolam HCl 100 ml @ 2 mls/hr TITRATE PRN IV SEDATION Last administered on 06:24; Start 07/20/17 at 20:45; Stop 07/23/17 at 07:42; Status DC Etomidate (Amidate Inj) 20 mg ONCE ONCE IV PUSH Last administered on 21:12; Start 07/20/17 at 20:45; Stop 07/20/17 at 20:46; Status DC Succinylcholine Chloride (Quelicin Inj) 100 mg ONCE ONCE IV PUSH Last administered on 07/20/17 21:12; Start 07/20/17 at 20:45; Stop 07/20/17 at 20:46 ; Status DC Vecuronium Blanchard (Norcuron 10 Mg Inj) 10 mg ONCE ONCE IV PUSH Last administered on 07/20/17 21:11; Start 07/20/17 at 20:45; Stop 07/20/17 at 20:46 ; Status DC Atropine Sulfate (Atropine Inj) 1 mg ONCE ONCE IV PUSH Last administered on 21:11; Start 07/20/17 at 20:45; Stop 07/20/17 at 20:46; Status DC Magnesium Sulfate/ Dextrose 100 ml @ 100 mls/hr Q1H IV Last administered on 22:49; Start 07/20/17 at 21:15; Stop 07/20/17 at 23:14; Status DC Vancomycin HCl 1000 mg/Sodium Chloride 250 ml @ 250 mls/hr ONCE STAT IV Last administered on 07/20/17 23:47; Start 07/20/17 at 21:32; Stop 07/20/17 at 22:31 ; Status DC Piperacillin Sod/ Tazobactam Sod 100 ml @ 200 mls/hr ONCE STAT IV Last administered on 07/20/17 21:38; Start 07/20/17 at 21:32; Stop 07/20/17 at 22:01 ; Status DC Sodium Chloride 1,000 ml @ 999 mls/hr BOLUS ONCE IV Last administered on 07/20 21:47; Start 07/20/17 at 21:45; Stop 07/20/17 at 22:45; Status DC Sodium Chloride 1,000 ml @ 999 mls/hr BOLUS ONCE IV Last administered on 07/20 21:47; Start 07/20/17 at 21:45; Stop 07/20/17 at 22:45; Status DC Sodium Chloride 1,000 ml @ 84 mls/hr [id number] IV Last administered on 06:28; Start 07/20/17 at 22:39; Stop 07/23/17 at 07:42; Status DC Sodium Chloride (NS Flush) 2 ml UNSCH PRN IV FLUSH FLUSH AFTER USING IV ACCESS ; Start 07/20/17 at 22:45 Sodium Chloride (NS Flush) 2 ml BID IV FLUSH Last administered on 07/31/17 09 :06; Start 07/21/17 at 09:00 Acetaminophen (Tylenol) 650 mg Q6H PRN PO FEVER >101F; Start 07/20/17 at 22:45 Acetaminophen/ Hydrocodone Bitart ([place] 5-325 Mg) 1 tab Q4H PRN PO PAIN SCALE 1 TO 5; Start 07/20/17 at 22:45 Morphine Sulfate (Morphine Inj) 2 mg Q2H PRN IV PUSH PAIN SCALE 6 TO 10; Start 07/20/17 at 22:45 Famotidine (Pepcid Inj) 10 mg Q12HR IV PUSH Last administered on 07/22/17 08: 11; Start 07/21/17 at 09:00; Stop 07/22/17 at 11:12; Status DC Lorazepam (Ativan Inj) 1 mg Q1H PRN IV PUSH Agitation/Sedation; Start 07/20/17 at 22:45; Stop 07/23/17 at 07:42; Status DC Artificial Tears (Tears Naturale Opth Soln) 1 drop TID EACH EYE Last administered on 07/31/17 09:06; Start 07/21/17 at 09:00 Ondansetron HCl (Zofran Inj) 4 mg Q6H PRN IV PUSH NAUSEA OR VOMITING; Start at 22:45 Albuterol/ Ipratropium (Duoneb Neb) 1 ampule Q6HR NEB INH Last administered on 07/24/17 20:16; Start 07/21/17 at 04:00; Stop 07/25/17 at 03:59; Status DC Albuterol/ Ipratropium (Duoneb Neb) 1 ampule Q2HR NEB PRN INH WHEEZING Last administered on 07/25/17 13:55; Start 07/20/17 at 22:45 Heparin Sodium (Porcine) (Heparin Inj) 5,000 units Q8H SQ Last administered on 07/21/17 01:27; Start 07/21/17 at 00:00; Stop 07/21/17 at 17:35; Status DC Miscellaneous Information 1 Q361D XX ; Start 07/20/17 at 22:45 Chlorhexidine Gluconate (Chlorhexidine 2% Cloth) Taper DAILY@04 TOP Last administered on 07/30/17 04:00; Start 07/21/17 at 04:00; Stop 07/17/18 at 03: 59 Chlorhexidine Gluconate (Chlorhexidine 2% Cloth) 3 pack UNSCH PRN TOP HYGIENIC CARE; Start 07/20/17 at 22:45 Senna/Docusate Sodium (Pema-Colace) 1 tab BID PO Last administered on 09:06; Start 07/21/17 at 09:00 Magnesium Hydroxide (Milk Of Magnesia Liq) 30 ml Q12H PRN PO MILD - MODERATE CONSTIPATION; Start 07/20/17 at 22:45 Sennosides (Senokot) 17.2 mg Q12H PRN PO MODERATE - SEVERE CONSTIPATION Last administered on 07/22/17 21:30; Start 07/20/17 at 22:45 Bisacodyl (Dulcolax Supp) 10 mg DAILY PRN RECTAL SEVERE CONSITIPATION; Start 07/20/17 at 22:45 Lactulose (Lactulose Liq) 30 ml DAILY PRN PO SEVERE CONSITIPATION; Start at 22:45 Dextrose (D50w (Vial) Inj) 50 ml UNSCH PRN IV PUSH HYPOGLYCEMIA-SEE COMMENTS Last administered on 07/23/17 06:28; Start 07/21/17 at 00:30 Glucagon (Glucagon Inj) 1 mg UNSCH PRN OTHER HYPOGLYCEMIA-SEE COMMENTS; Start 07/21/17 at 00:30 Insulin Aspart (NovoLOG SUPPLEMENTAL SCALE) 1 ACHS SLIDING SCALE SQ Last administered on 07/30/17 17:27; Start 07/21/17 at 08:00 Aspirin (Aspirin) 325 mg ONCE ONCE PO Last administered on 07/21/17 04:52; Start 07/21/17 at 04:30; Stop 07/21/17 at 04:31; Status DC Atorvastatin Calcium (Lipitor) 40 mg ONCE ONCE PO Last administered on 04:52; Start 07/21/17 at 04:30; Stop 07/21/17 at 04:31; Status DC Heparin Sodium/ Dextrose 250 ml @ 9 mls/hr TITRATE PRN IV Coagulation management Last administered on 07/25/17 09:40; Start 07/21/17 at 04:30; Stop 07/26/17 at 13:17; Status DC Magnesium Sulfate 2 gm/Sodium Chloride 104 ml @ 52 mls/hr ONCE ONCE IV Last administered on 07/21/17 15:12; Start 07/21/17 at 15:00; Stop 07/21/17 at 16:59 ; Status DC Famotidine (Pepcid Inj) 20 mg Q12HR IV PUSH Last administered on 07/31/17 09: 07; Start 07/22/17 at 21:00 Propofol 100 ml @ 2.22 mls/hr TITRATE PRN IV SEDATION Last administered on 06:47; Start 07/23/17 at 07:45; Stop 07/26/17 at 13:17; Status DC Quetiapine Fumarate (SEROquel) 100 mg Q8HR PO Last administered on 07/31/17 05:21; Start 07/23/17 at 07:45 Metoprolol Tartrate (Lopressor Inj) 5 mg Q4H IV PUSH Last administered on 07/26 00:02; Start 07/23/17 at 08:00; Stop 07/26/17 at 05:01; Status DC Metoprolol Tartrate (Lopressor Inj) 5 mg Q5M PRN IV PUSH for goal HR < 90 Last administered on 07/27/17 03:57; Start 07/23/17 at 07:45 Oxycodone HCl (Roxicodone Intensol Liq) 10 mg Q4H PO Last administered on 07/27 08:56; Start 07/23/17 at 08:00; Stop 07/27/17 at 11:06; Status DC Haloperidol Lactate (Haldol Inj) 5 mg Q4H PRN IV agitation Last administered on 07/26/17 05:27; Start 07/23/17 at 07:45 Metoprolol Tartrate (Lopressor) 50 mg Q12HR PO Last administered on 07/27/17 08:56; Start 07/24/17 at 10:00; Stop 07/27/17 at 13:19; Status DC Sodium Chloride 250 ml @ 15 mls/hr ONCE ONCE IV Last administered on 14:00; Start 07/25/17 at 14:00; Stop 07/26/17 at 06:39; Status DC Dopamine HCl/ Dextrose 500 ml @ As Directed STK-MED ONCE IV ; Start 07/21/17 at 05:00; Stop 07/25/17 at 16:08; Status DC Digoxin (Lanoxin Inj) 0.5 mg STK-MED ONCE IV PUSH ; Start 07/21/17 at 05:00; Stop 07/25/17 at 16:08; Status DC Metoprolol Tartrate (Lopressor Inj) 10 mg NOW ONCE IV PUSH Last administered on 07/26/17 03:17; Start 07/26/17 at 03:05; Stop 07/26/17 at 03:06; Status DC Metoprolol Tartrate (Lopressor Inj) 10 mg Q4H IV PUSH ; Start 07/26/17 at 05:00 ; Stop 07/26/17 at 05:02; Status DC Metoprolol Tartrate (Lopressor Inj) 10 mg Q4H IV PUSH Last administered on 22:04; Start 07/26/17 at 05:00; Stop 07/26/17 at 23:00; Status DC Sodium Chloride 250 ml @ 15 mls/hr ONCE ONCE IV ; Start 07/26/17 at 13:15; Stop 07/27/17 at 05:54; Status DC Aspirin (Aspirin Chew) 324 mg ONCE ONCE CHEW ; Start 07/26/17 at 14:00; Stop 07/26/17 at 14:01; Status DC Aspirin (Ecotrin Ec) 81 mg DAILY PO Last administered on 07/31/17 09:07; Start 07/27/17 at 09:00 Metoprolol Tartrate (Lopressor) 50 mg Q8HR PO Last administered on 07/30/17 21:13; Start 07/26/17 at 14:00 Oxycodone HCl (Roxicodone Intensol Liq) 10 mg Q4H PO ; Start 07/27/17 at 12:00 ; Stop 07/27/17 at 12:40; Status DC Oxycodone HCl (Roxicodone Intensol Liq) 10 mg Q8HR PO Last administered on 21:14; Start 07/27/17 at 14:00 Heparin Sodium (Porcine) (Heparin Inj) 6,000 units ONCE ONCE IV PUSH Last administered on 07/27/17 13:34; Start 07/27/17 at 12:45; Stop 07/27/17 at 13 :12; Status DC Heparin Sodium/ Dextrose 250 ml @ 13 mls/hr TITRATE PRN IV Coagulation management Last administered on 07/27/17 13:36; Start 07/27/17 at 12:45; Stop 07/28/17 at 08:43; Status DC Furosemide (Lasix Inj) 40 mg STK-MED ONCE .ROUTE ; Start 07/27/17 at 12:51; Stop 07/27/17 at 12:52; Status DC Furosemide (Lasix Inj) 40 mg STAT ONCE IV PUSH Last administered on 13:00; Start 07/27/17 at 13:00; Stop 07/27/17 at 13:15; Status DC Furosemide (Lasix Inj) 40 mg BID@09,18 IV PUSH Last administered on 07/31/17 09:07; Start 07/27/17 at 18:00 Iohexol (Omnipaque 350 Inj) 70 ml STK-MED ONCE IVCONTRAST Last administered on 07/27/17 14:11; Start 07/27/17 at 14:11; Stop 07/27/17 at 14:12; Status DC Labetalol HCl (Trandate Inj) 20 mg Q2H PRN IV SBP > 160 OR DBP > 110; Start at 19:45 Potassium Chloride 100 ml @ 50 mls/hr Q2H PRN IV For Potassium 2.8 - 3.2 mEq/ L Last administered on 07/29/17 11:34; Start 07/29/17 at 08:30; Stop at 07:41; Status DC Potassium Chloride 100 ml @ 50 mls/hr Q2H PRN IV For Potassium 2.8 - 3.2 mEq/L ; Start 07/29/17 at 08:30; Stop 07/30/17 at 07:41; Status DC Potassium Bicarb/ Potassium Chloride (K-Lyte Cl Eff) 50 meq UNSCH PRN PO For Potassium 3.3 - 3.5 mEq/L; Start 07/29/17 at 08:30; Stop 07/30/17 at 07:41; Status DC Potassium Chloride 100 ml @ 25 mls/hr UNSCH PRN IV For Potassium 3.3 - 3.5 mEq /L Last administered on 07/29/17t 18:56; Start 07/29/17 at 08:30; Stop at 07:41; Status DC Potassium Chloride 100 ml @ 50 mls/hr Q2H PRN IV For Potassium 3.3 - 3.5 mEq/L ; Start 07/29/17 at 08:30; Stop 07/30/17 at 07:41; Status DC Magnesium Sulfate 4 gm/Sodium Chloride 100 ml @ 50 mls/hr UNSCH PRN IV For Magnesium 0.9 - 1.1 mg/dL; Start 07/29/17 at 08:30; Stop 07/30/17 at 07:41; Status DC Magnesium Oxide (Mag-Ox) 800 mg UNSCH PRN PO For Magnesium 1.2 - 1.6 mg/dL; Start 07/29/17 at 08:30; Stop 07/30/17 at 07:41; Status DC Magnesium Sulfate 2 gm/Sodium Chloride 100 ml @ 50 mls/hr UNSCH PRN IV For Magnesium 1.2 - 1.6 mg/dL; Start 07/29/17 at 08:30; Stop 07/30/17 at 07:41; Status DC Potassium Phosphate (K-Phos) 2,000 mg Q4H PRN PO For Phosphorus < 2.5 mg/dL; Start 07/29/17 at 08:30; Stop 07/30/17 at 07:41; Status DC Sodium Phosphate 30 mmol/Sodium Chloride 250 ml @ 42 mls/hr UNSCH PRN IV For Phosphorus < 2.5 mg/dL; Start 07/29/17 at 08:30; Stop 07/30/17 at 07:41; Status DC Potassium Phosphate (K-Phos) 2,000 mg UNSCH PRN PO/TUBE SEE LABEL COMMENTS; Start 07/29/17 at 08:30; Stop 07/30/17 at 07:41; Status DC Potassium Phosphate 30 mmol/ Sodium Chloride 260 ml @ 42 mls/hr UNSCH PRN IV SEE LABEL COMMENTS; Start 07/29/17 at 08:30; Stop 07/30/17 at 07:41; Status DC A/P Assessment and Plan [id number] with presented with bradycardia found to have NSTEMI Agitated Delirium -admitted to ICU and was given propafol. -Off propofol since 07/25 -extubated 07/25 - will avoid precedex given recent bradycardia Acute Hypoxic Respiratory failure -Patient was intubated and was extubated successfully. Patient then had another episode of respiratory failure with hypoxia on 07/27 in which he was found to be in pulmonary edema. See treatment as below. -Resolved. Pulmonary edema, improving -CTA shows bilateral pleural effusion. Patient was given multiple dose of Lasix. -Continue with Lasix. Strict ins and outs. Continue to monitor clinically. Sinus Bradycardia- resolved. NSTEMI Sinus Tachycardia secondary to agitation - Dopamine drip has been weaned off. - Cardiology consulted, Dr. Ron following and since patient became hypoxic and went to pulmonary edema cardiac catheterization scheduled for today. - 2-D echo: normal LVEF - Elevated troponin consistent with non-ST elevation [place] per cardiology. - Stop heparin GTT, aspirin 324 mg by mouth now and then 81 mg by mouth daily. - trend troponins q8h, currently downtrending. Syncopal episode - CT head negative - Likely due to bradycardia, possible sick sinus syndrome, reportedly had slow A. fib on some telemetry strips per cardiology. Diabetes - Hold metformin due to lactic acidosis - Insulin sliding scale Lactic acidosis- improving. - Acute kidney injury - Hold metformin - Monitor trend - IV fluid hydration Acute kidney injury- resolved. - Strict I's and O - Monitor trend of creatinine and electrolytes Hypokalemia -Since patient has normal renal function will put ICU electrolyte protocol and. DVT GI prophylaxis - Teds SCDs - Subcutaneous heparin and Pepcid Discharge Planning Patient scheduled for cardiac catheterization today. Zohreh Strickland MD Jul 31, 2017 11:55
[2017-07-31] MEDS ORDERED: HEPARIN-NS/PF INJ 1,000 ML ONE (12:43)
[2017-07-31] MEDS ORDERED: MIDAZOLAM HCL 2 MG/2 ML VIAL ONE (12:43)
[2017-07-31] MEDS ORDERED: NITROGLYCERIN INJ 5 ML ONE (12:52)
[2017-07-31] MEDS ORDERED: HEPARIN SODIUM - IV 10,000 UNITS/10 ML VIAL ONE (12:52)
[2017-07-31 12:58] LABS: BICARBONATE 30.7 MEQ/L (21.0-32.0); POTASSIUM 3.9 MEQ/L (3.5-5.1)
--- NOTE | 2017-07-31 13:41 | CATHPROC ---
[employer] HIS Report Study Information Study Number Admission Scheduled Start Study Start [id number] Jul 20 2017 9:37PM 07/31/2017 Jul 31 2017 12:23PM [place] [facility] Catheter[facility] Admit Source Facility Department Other [facility] - Registration Officer Physician and Clinical Staff Initial Ahmet Lopez Manufacturing Operatordeanna Escobar RN, Ward Shah cathlab, cathlab Recorder Rajeev Coates RCIS(BS) Lyubov Sifuentes RCIS TECH2 Procedures Performed Procedure Location (Site) Vessel Name Coronary Angiograms LCA Left Coronary Coronary Angiograms RCA Right Coronary L Heart Cath Equipment Time Badger Distiller Operator Description Size Mfg Part Number Used/Scraped TRANSDUCER, TRUWAVE [id number] 12:38 ALTMAN ROOT * Used W/STOCKCOCK *[id number] [id number] *[id number] [id number] *[id number] 12:38 MEDLINE IND[employer] PACK, CCL CUSTOM * Used *[id number] 12:38 Yelago PACER PEN, SKIN DUAL W/ RULER * Used *[id number] BAND, RADIAL COMPRESSION TR [id number] 13:19 382 [employer] MEDICAL 24CM Used SHORT 24 *[id number] 12:38 [employer] MEDICAL WIRE, 3MMJ .035 180CM 180CM Used *[id number] 12:38 NAMIC MANIFOLD, 4 PORT * Used *[id number] 12:38 NYCOMED OMNIPAQUE, 350 MG, 150ML 150ML [id number] Used [id number] 12:38 FLORES MEDICAL BLANKET,WARM AIR CCL * Used *[id number] 12:38 [employer] MEDICAL SHEATH, FR5 TERUMO (10CM) FR 5 Used *[id number] History: Allergies Allergy Reaction No Known Allergies History: Risk Factors Family History of Hypertension Dyslipidemia Previous AL Previous Heart Failure Premature CAD Yes Yes Yes No No Prior Valve Prior PCI Prior CABG Surgery No No No Cerebrovascular Peripheral Artery Chronic Lung On Dialysis Diabetes Diabetes Therapy Disease Disease Disease No No No No Yes Oral History: Symptoms/Diagnosis Selection Items Chest pain History: Stress Tests Stress or Imaging Studies Performed No History: Other Current Smoker Packs a Day Years Used Pack Years Yes 1 40 40 Labs Hgb (g/dl) Hct (%) WBC (l/cumm) Platelets (thousands) 11.60-17.00 35.00-51.00 4.00-11.00 150.00-450.00 10.8 32.2 6.6 249 Glucose (mg/dl) BUN (mg/dl) Creatinine (mg/dl) BUN:Creatinine (1:x) 74.00-106.00 7.00-18.00 0.50-1.30 10.00-20.00 90 28 1.0 28 Na (meq/l) K (meq/l) 136.00-145.00 3.50-5.10 139 3.4 INR (PTT:PT) 0.90-1.10 1.1 Troponin I (ng/ml) CPK-MB (ng/ML) 0.02-0.05 0.50-3.60 19.6 Not Drawn Medication Medication Total Dose (Bolus/Oral) Medication Total Dosage/Unit 1% XYLOCAINE 3 mL FENTANYL 50 mcg HEPARIN 3000 units NTG (IC) 200 mcg VERSED 2 mg Medications (Bolus/Oral) Medication Time Given Dosage/Unit Administered By Reason 07/31/2017 12:54:04 FENTANYL 50 mcg Ward Escobar RN 50 mcg FENTANYL given in lab by Ward Escobar RN in Left Hand via Peripheral IV. Ordered by Asher Krishnan. 07/31/2017 12:55:07 VERSED 2 mg Ward Escobar RN 2 mg VERSED given in lab by Ward Escobar RN in Left Hand via Peripheral IV. Ordered by Ahmet Krishnan . 07/31/2017 12:57:10 1% XYLOCAINE 3 mL Ahmet Krishnan PM 3 mL 1% XYLOCAINE given in lab by Ahmet Krishnan in Right Radial via Subcutaneous. HEPARIN 07/31/2017 1:03:02 PM 3000 units Ward Escobar RN 3000 units HEPARIN given in lab by Ward Escobar RN in Left Hand via Peripheral IV. Ordered by Ahmet Krishnan. NTG (IC) 07/31/2017 1:03:14 PM 200 mcg Ahmet Krishnan 200 mcg NTG (IC) given in lab by Ahmet Krishnan in Right Radial via Intra-coronary. Initial Case Assessment Cardiovascular HR Rhythm NIBP Chest Pain 98 nsr 123/78 0 Edema Present Skin color Skin None Normal Warm Dry Circulatory - Right Pulses Dorsalis Pedis Femoral 1 3 Scale (0,1,2,3,4,d) Circulatory - Left Pulses Dorsalis Pedis Femoral 1 3 Scale (0,1,2,3,4,d) Neurological State Oriented to time-place- Alert Moves all extremities person Respiration - General Respiration Rate SpO2 (%) (B/min) 15 95 Final Case Assessment Cardiovascular HR Rhythm NIBP Chest Pain 95 nsr 113/73 0 Edema Present Skin color Skin None Normal Warm Dry Circulatory - Right Pulses Dorsalis Pedis Femoral 1 3 Scale (0,1,2,3,4,d) Circulatory - Left Pulses Dorsalis Pedis Femoral 1 3 Scale (0,1,2,3,4,d) Neurological State Oriented to time-place- Alert Moves all extremities person Respiration - General Respiration Rate SpO2 (%) (B/min) 15 95 Chronological Log Time Study Chronological Log 12::38 Patient arrived via Bed. 12:28:38 Patient Name, D.O.B, / Armband Verified By R.N. 12:28:39 Consent signed by the physician and the patient and verified by the Registration Officer staff. 12:28:40 Pre-op and post- op instructions given; patient acknowledges understanding of instructions. 12:28:40 Verbal Stimulation=2 Physical Stimulation=2 Airway=2 Respiration=2 TOTAL=8. (0=absent, 1=li mited, 2=present) 12::41 Presedation assessment performed by Registration Officer RN. 12:28:42 Immediate Presedation assesment performed by physician. 12:28:42 Patient has been NPO for More than 6Hrs. 12:28:43 skin breakdown- none per pateint 12::44 Patient Warmer Placed on the Table. 12:28:45 Tom Prominences Protected 12:28:46 A # 20 IV was noted in the Forearm (right). Grade = 0 12:30:50 A # 20 IV was noted in the Hand (left). Grade = 0 12:30:52 History and physical on the chart or being dictated. 12:38:22 Reference ECG taken Vitals capture started with the following parameters, Patient=Adult, Interval=5 min, Initial Pr ovkhjr=019 mmHg, 12:38:23 Deflation Rate=5 mmHg, Cuff placed on Right Arm Assessment: Initial Case, HR=98 BPM, Rhythm=nsr, VWEO=567/78 mmhg, Chest Pain=0, Edema=None, Co jael=Normal, Skin = Warm, Dry Right Pulses: Pedro Ped=1, Femoral=3 12:38:28 Left Pulses: Pedro Ped=1, Femoral=3 Neurological: State=Alert, Ox3, LONDONO Respiration: Resp=15 B/min, SpO2=95 % 12:38:58 HR=98 bpm, VTGQ=000/78 mmhg, SpO2=95.0 %, Resp=12 B/min, Pain=0, Ronny=10, Mancia=2 12:43:53 HR=98 bpm, UVNF=344/76 mmhg, SpO2=93.0 %, Resp=12 B/min, Pain=0, Ronny=10, Mancia=2 Vitals capture started with the following parameters, Patient=Adult, Interval=5 min, Initial Pr ezavqd=853 mmHg, 12:51:27 Deflation Rate=5 mmHg, Cuff placed on Right Arm 12:52:02 Right Radial and groin(s) prepped with 2% chlorhexidine, and draped after a 3 min. waiting time. 12:52:03 HR=98 bpm, HZCX=169/83 mmhg, SpO2=94.0 %, Resp=11 B/min, Pain=0, Ronny=10, Mancia=2 12:52:08 MD arrived. 12:53:03 Contrast Scanned 12:53:04 Immediate Presedation assesment performed by physician. 12:54:04 50 mcg FENTANYL given in lab by Ward Escobar RN in Left Hand via Peripheral IV. Ordered by Ahmet Krishnan. 12:55:07 2 mg VERSED given in lab by Ward Escobar RN in Left Hand via Peripheral IV. Ordered by Ahmet Celeste. Time Out. Correct patient, correct procedure, correct physician, power injector not loaded with contrast with surgical 12:56:50 team present. Time Out Concurred by MD and individual staff in procedure. 12:56:56 Case Start 12:56:57 Verbal Stimulation=2 Physical Stimulation=2 Airway=2 Respiration=2 TOTAL=8. (0=absent, 1=li mited, 2=present) 12:57:00 HR=97 bpm, CNLW=675/78 mmhg, SpO2=99.0 %, Resp=8 B/min, Pain=0, Ronny=10, Mancia=2 12:57:10 3 mL 1% XYLOCAINE given in lab by Ahmet Krishnan in Right Radial via Subcutaneous. 12:59:01 Pressure channel 1 zeroed. 13:01:59 HR=92 bpm, KDHL=463/70 mmhg, SpO2=98.0 %, Resp=12 B/min, Pain=0, Ronny=10, Mancia=2 13:02:55 Access site was Right Radial Artery. 13:03:02 3000 units HEPARIN given in lab by Ward Escobar RN in Left Hand via Peripheral IV. Ordered by Ahmet Krishnan. 13:03:02 A SHEATH, FR5 TERUMO (10CM) FR 5 was advanced into the Radial (right) using the Percutaneou s technique. 13:03:14 200 mcg NTG (IC) given in lab by Ahmet Krishnan in Right Radial via Intra-coronary. A JR 5.0 INFINITI CATHETER FR 5 was advanced over a wire. OMNIPAQUE, 350 MG, 150ML 150ML was us ed for 13:04:53 injections. Recorded Pressure: LV, HR=96, Condition=Condition 1 13:05:17 (Left Ventricle) LV 94/-2/0 Recorded Pressure: LV, Ao, HR=95, Condition=Condition 1 13:05:28 (Left Ventricle) LV 92/-2/1, (Aorta) Ao 89/55/70 13:05:40 The RCA was injected and visualized at various angles. OMNIPAQUE, 350 MG, 150ML 150ML used . Recorded Pressure: Ao, HR=95, Condition=Condition 1 13:05:57 (Aorta) Ao 83/52/65 13:06:55 HR=96 bpm, PEVY=514/69 mmhg, SpO2=95 %, Resp=13 B/min, Pain=0, Ronny=10, Mancia=2 After removing the current catheter a JL 3.5 INFINITI CATHETER FR 5 was advanced over a WIRE, 3 MMJ .035 180CM 13:07:06 180CM. 13:09:25 The LCA was injected and visualized at various angles. OMNIPAQUE, 350 MG, 150ML 150ML used . 13:11:55 HR=97 bpm, LUQS=118/72 mmhg, SpO2=97 %, Resp=13 B/min, Pain=0, Ronny=10, Mancia=2 13:12:35 Catheter was removed 13:16:58 HR=96 bpm, ZLHR=872/73 mmhg, SpO2=97 %, Resp=12 B/min, Pain=0, Ronny=10, Mancia=2 13:18:33 Case End Assessment: Final Case, HR=95 BPM, Rhythm=nsr, YKYU=783/73 mmhg, Chest Pain=0, Edema=None, Col or=Normal, Skin = Warm, Dry Right Pulses: Pedro Ped=1, Femoral=3 13:18:44 Left Pulses: Pedro Ped=1, Femoral=3 Neurological: State=Alert, Ox3, L[place]ONO Respiration: Resp=15 B/min, SpO2=95 % 13:19:08 Catheter(s) removed without difficulty Radial Compression Device Used. 11 mLs of air placed in BAND, RADIAL COMPRESSION TR SHORT 24 2 4CM. Affected 13:19:15 hand 98 % O2 saturation. 13:19:28 Sterile dressing applied to site 13:19:28 No case complications noted. 13:19:29 Cine recording checked. 13:19:30 Bedside Report will be given. 13:19:32 Contrast Scanned 13:19:33 Verbal Stimulation=2 Physical Stimulation=2 Airway=2 Respiration=2 TOTAL=8. (0=absent, 1=l imited, 2=present) 13:19:58 A Left Heart Cath was performed. 13:21:57 HR=94 bpm, DTBD=055/74 mmhg, Resp=13 B/min, Pain=0, Ronny=10, Mancia=2 13:24:49 Vitals capture stopped. 13:27:29 Patient moved to [facility] End Study - Contrast Media Used In Study Contrast Total Opened (mL) Total Used (mL) Total Wasted (mL) Omnipaque 35 35 0 End Study - Maximum Contrast Load Max Contrast Load (mL) 347.7 End Study - Radiation Exposure Fluoro Time (minutes) 1.7 End Study - Patient Disposition Complications Transferred To Interventional Outcome No Telemetry Bed No attempt made
[2017-07-31] MEDS ORDERED: MISC INFORMATION XX ONE (14:00)
--- NOTE | 2017-07-31 14:00 | MA ---
cc: NEAL KAMARA DATE: 07/31/2017 INDICATION Zos-QU-jhhjqqfts NC. PROCEDURE PERFORMED 1. Fluoroscopy with interpretation. 2. Left heart catheterization. 3. Coronary angiography. METHOD The risks, benefits and alternatives were discussed with the patient. The patient understood and consented to the procedure. The patient was brought to the cardiac catheterization lab and placed on the catheterization table. Right wrist was prepped and draped in sterile fashion. Right wrist was anesthetized with 2% lidocaine. Right radial artery was cannulated and a 6-Maltese, 7 cm sheath was placed without difficulty. LEFT HEART CATHETERIZATION Intraventricular hemodynamics measured at 92/1 mmHg. Left ventricular end-diastolic pressure 1 mmHg. No significant aortic stenosis by transaortic valvular pullback gradient. CORONARY ANGIOGRAPHY 1. Left main coronary is angiographically normal. 2. Left anterior descending coronary has moderate calcium present. There is 80% stenosis in the proximal segment. Mid segment has minor luminal irregularities. There is a first diagonal branch which has 80% proximal stenosis. At the distal left anterior descending coronary artery there is a 90% stenosis leading to the apical LAD. 3. Circumflex gives rise to a ramus intermedius branch with a 75% stenosis. The obtuse marginal branch has a 80% stenosis. 4. Right coronary is a dominant vessel giving rise to posterior descending branch. Right coronary artery has 90% stenosis through the proximal midsegment. CONCLUSION 1. Multivessel coronary artery disease. 2. Normal left-sided filling pressure. PLAN Reviewed the patient's echocardiogram report. There is no ejection fraction reported. We will ask Dr. Gonzales to review the echo that he read to report ejection fraction. Going to try to minimize contrast so we did not do a left ventriculogram. Given his multivessel disease I think he would be best served with consideration of bypass surgery. I will consult cardiothoracic surgery. I will have a discussion with them about that distal LAD lesion and whether or not it might be worth trying a gentle balloon angioplasty to improve distal flow after graft anastomosis to the mid LAD itself. Otherwise, we can just leave it as is and hope for good collateralization distally. Continue current medical therapy. MD ALICIA Grider/IMANI /1:22 PM /1:42 PM
[2017-07-31] MEDS ORDERED: IOHEXOL 350 MG/ML 50 ML BTL (for Cath Lab) OTHER ONE (14:07)
[2017-07-31] MEDS ORDERED: BACITRACIN OINT 0.9 GM PKT TOP ONE (15:00)
[2017-08-01] VITALS (25 sets, daily range): BP systolic 95–132; BP diastolic 62–87; PULSE 78–97; RESP 14–18; TEMP 97.8–98.4; O2SAT 97–100
[2017-08-01] MEDS: CHLORHEXIDINE GLUCONATE 2 % 1 PACK (2 CLOTHS) TOP SCH (04:00)
[2017-08-01] MEDS: QUEtiapine FUMARATE 100 MG TAB PO SCH ×3 (05:04→22:46)
[2017-08-01] MEDS: METOPROLOL TARTRATE 50 MG TAB PO SCH ×3 (05:04→22:38)
[2017-08-01] MEDS: oxyCODONE HCL ORAL CONC 5 MG/0.25 ML SYRINGE PO SCH ×3 (05:05→22:48)
[2017-08-01 06:43] LABS: APTT (PATIENT) 26.2 SEC (24.3-30.1)
[2017-08-01 07:01] LABS: BICARBONATE 30.5 MEQ/L (21.0-32.0); POTASSIUM 3.8 MEQ/L (3.5-5.1)
--- NOTE | 2017-08-01 08:23 | PD.CARD.PN ---
Subjective Subjective Remarks feeling well. denies chest pain or sob. resting comfortably. Objective Medications Current Medications Medications (Trade) Dose Ordered Sig/Omero Route Start Time Stop Time Status Last Admin (NS Flush) 2 ml UNSCH PRN IV FLUSH 07/20/17 22:45 (NS Flush) 2 ml BID IV FLUSH 07/21/17 09:00 07/31/17 22:20 (Tylenol) 650 mg Q6H PRN PO 07/20/17 22:45 (Hazel Hurst 5-325 Mg) 1 tab Q4H PRN PO 07/20/17 22:45 (Morphine Inj) 2 mg Q2H PRN IV PUSH 07/20/17 22:45 (Tears Naturale Opth Soln) 1 drop TID EACH EYE 07/21/17 09:00 07/31/17 16:45 (Zofran Inj) 4 mg Q6H PRN IV PUSH 07/20/17 22:45 (Duoneb Neb) 1 ampule Q2HR NEB PRN INH 07/20/17 22:45 07/25/17 13:55 Miscellaneous Information 1 Q361D XX 07/20/17 22:45 (Chlorhexidine 2% Cloth) Taper DAILY@04 TOP 07/21/17 04:00 07/17/18 03:59 07/30/17 04:00 (Chlorhexidine 2% Cloth) 3 pack UNSCH PRN TOP 07/20/17 22:45 (Pema-Colace) 1 tab BID PO 07/21/17 09:00 07/31/17 22:20 (Milk Of Magnesia Liq) 30 ml Q12H PRN PO 07/20/17 22:45 (Senokot) 17.2 mg Q12H PRN PO 07/20/17 22:45 07/22/17 21:30 (Dulcolax Supp) 10 mg DAILY PRN RECTAL 07/20/17 22:45 (Lactulose Liq) 30 ml DAILY PRN PO 07/20/17 22:45 (D50w (Vial) Inj) 50 ml UNSCH PRN IV PUSH 07/21/17 00:30 07/23/17 06:28 (Glucagon Inj) 1 mg UNSCH PRN OTHER 07/21/17 00:30 (NovoLOG SUPPLEMENTAL SCALE) 1 ACHS SLIDING SCALE SQ 07/21/17 08:00 07/31/17 21:00 (Pepcid Inj) 20 mg Q12HR IV PUSH 07/22/17 21:00 07/31/17 22:19 (SEROquel) 100 mg Q8HR PO 07/23/17 07:45 08/01/17 05:04 (Lopressor Inj) 5 mg Q5M PRN IV PUSH 07/23/17 07:45 07/27/17 03:57 (Haldol Inj) 5 mg Q4H PRN IV 07/23/17 07:45 07/26/17 05:27 (Ecotrin Ec) 81 mg DAILY PO 07/27/17 09:00 07/31/17 09:07 (Lopressor) 50 mg Q8HR PO 07/26/17 14:00 08/01/17 05:04 (Roxicodone Intensol Liq) 10 mg Q8HR PO 07/27/17 14:00 08/01/17 05:05 (Lasix Inj) 40 mg BID@09,18 IV PUSH 07/27/17 18:00 07/31/17 16:44 (Trandate Inj) 20 mg Q2H PRN IV 07/27/17 19:45 Vital Signs / I&O Vital Signs Date Time Temp Pulse Resp B/P (MAP) Pulse Ox O2 Delivery O2 Flow Rate FiO2 08/01/17 08:00 Room Air 08/01/17 06:56 20 08/01/17 06:00 80 08/01/17 05:00 84 08/01/17 04:00 80 08/01/17 03:00 98.3 88 14 116/75 (89) 97 08/01/17 03:00 83 08/01/17 02:00 82 08/01/17 01:00 84 08/01/17 00:00 90 07/31/17 23:00 92 07/31/17 23:00 98.7 94 18 96/62 (73) 98 07/31/17 22:00 94 07/31/17 21:00 100 07/31/17 20:00 98 07/31/17 19:00 98.6 98 18 109/74 (86) 98 07/31/17 19:00 99 07/31/17 18:00 96 07/31/17 17:00 88 07/31/17 16:00 86 07/31/17 15:00 97.7 87 21 94/60 (71) 99 07/31/17 15:00 88 07/31/17 15:00 99 Room Air 07/31/17 15:00 88 07/31/17 14:19 101 22 103/72 (82) 99 07/31/17 14:00 92 07/31/17 13:41 98.7 98 22 126/82 (97) 100 07/31/17 13:40 98 07/31/17 12:00 97 07/31/17 11:00 97 07/31/17 11:00 97 Room Air 07/31/17 11:00 98.6 97 20 119/80 (93) 97 07/31/17 10:00 100 07/31/17 09:00 84 I/O 07/31/17 07/31/17 07/31/17 08/01/17 08/01/17 08/01/17 07:00 15:00 23:00 07:00 15:00 23:00 Intake Total 480 ml 960 ml 240 ml Output Total 1000 ml 1000 ml 900 ml Balance -520 ml -40 ml -660 ml Intake Oral 480 ml 960 ml 240 ml Output Urine Total 1000 ml 1000 ml 900 ml # Bowel Movements 0 Physical Exam HEAD: Atraumatic. Normocephalic. EYES: Pupils equal and round. No scleral icterus. No injection or drainage. ENT: No nasal bleeding or discharge. Mucous membranes pink and moist. NECK: Trachea midline. No JVD. CARDIOVASCULAR: Regular rate and rhythm. No murmur RESPIRATORY: No accessory muscle use. Clear to auscultation. Breath sounds equal bilaterally. GASTROINTESTINAL: Abdomen soft, non-tender, nondistended. Hepatic and splenic margins not palpable. MUSCULOSKELETAL: Extremities without clubbing, cyanosis, or edema. No obvious deformities. NEUROLOGICAL: alert and oriented x 3, CN grossly intact. Laboratory Laboratory Tests Test 07/31/17 12:15 08/01/17 05:55 Blood Urea Nitrogen 31 MG/DL 37 MG/DL Creatinine 1.53 MG/DL 1.51 MG/DL Random Glucose 151 MG/DL 159 MG/DL Calcium Level 10.0 MG/DL 9.5 MG/DL Sodium Level 135 MEQ/L 136 MEQ/L Potassium Level 3.9 MEQ/L 3.8 MEQ/L Chloride Level 96 MEQ/L 98 MEQ/L Carbon Dioxide Level 30.7 MEQ/L 30.5 MEQ/L Anion Gap 8 MEQ/L 8 MEQ/L Estimat Glomerular Filtration Rate 56 ML/MIN 57 ML/MIN Activated Partial Thromboplast Time 26.2 SEC Assessment and Plan Problem List: (1) NSTEMI (non-ST elevated myocardial infarction) ICD Codes: I21.4 - Non-ST elevation (NSTEMI) myocardial infarction Status: Acute (2) Bradycardia ICD Codes: R00.1 - Bradycardia, unspecified Status: Acute Assessment and Plan 61 yo M admitted after syncope and acute respiratory failure. NSTEMI / CAD: s/p cardiac catheterization reveals multivessel disease. CVS to consider CABG. patient asymptomatic. vitals stable. Brooke Caban Aug 01, 2017 08:23
--- NOTE | 2017-08-01 08:26 | HHI.PR ---
Subjective Remarks Follow up for bradycardia, NSTEMI. Patient is currently doing well. No chest pain, SOB, fever, chills. Objective Vitals Vital Signs Date Time Temp Pulse Resp B/P (MAP) Pulse Ox O2 Delivery O2 Flow Rate FiO2 08/01/17 08:00 Room Air 08/01/17 06:56 20 08/01/17 06:00 80 08/01/17 05:00 84 08/01/17 04:00 80 08/01/17 03:00 98.3 88 14 116/75 (89) 97 08/01/17 03:00 83 08/01/17 02:00 82 08/01/17 01:00 84 08/01/17 00:00 90 07/31/17 23:00 92 07/31/17 23:00 98.7 94 18 96/62 (73) 98 07/31/17 22:00 94 07/31/17 21:00 100 07/31/17 20:00 98 07/31/17 19:00 98.6 98 18 109/74 (86) 98 07/31/17 19:00 99 07/31/17 18:00 96 07/31/17 17:00 88 07/31/17 16:00 86 07/31/17 15:00 97.7 87 21 94/60 (71) 99 07/31/17 15:00 88 07/31/17 15:00 99 Room Air 07/31/17 15:00 88 07/31/17 14:19 101 22 103/72 (82) 99 07/31/17 14:00 92 07/31/17 13:41 98.7 98 22 126/82 (97) 100 07/31/17 13:40 98 07/31/17 12:00 97 07/31/17 11:00 97 07/31/17 11:00 97 Room Air 07/31/17 11:00 98.6 97 20 119/80 (93) 97 07/31/17 10:00 100 07/31/17 09:00 84 I/O 07/31/17 07/31/17 07/31/17 08/01/17 08/01/17 08/01/17 07:00 15:00 23:00 07:00 15:00 23:00 Intake Total 480 ml 960 ml 240 ml Output Total 1000 ml 1000 ml 900 ml Balance -520 ml -40 ml -660 ml Intake Oral 480 ml 960 ml 240 ml Output Urine Total 1000 ml 1000 ml 900 ml # Bowel Movements 0 Result Diagram: 07/30/17 0656 08/01/17 0555 Imaging Last Impressions Chest X-Ray 07/27/17 0000 Signed Impressions: Service Date/Time: July 12:48 - CONCLUSION: 1. Development of right effusion and bibasilar intraalveolar infiltrates suggesting pulmonary edema. Anibal Alatorre Jr., MD CT Angiography 07/27/17 0000 Signed Impressions: Service Date/Time: , July 27, 2017 13:57 - CONCLUSION: 1. Exam severely limited by motion artifact 2. Large bilateral effusions 3. Diffuse edema versus pneumonia 4. No evidence of pulmonary embolism. Esvin Dotson MD Abdomen/Pelvis CT [id number]/[id number] Signed Impressions: Service Date/Time: , July 20, 2017 22:18 - CONCLUSION: 1. Mild amount of ascites seen around the liver. 2. Mild thickening of the gallbladder wall. This is nonspecific. Calcified gallstones are not seen. 3. Moderate distension of the urinary bladder. There is Naqvi catheter in the urinary bladder. Gary Ray MD Head CT [id number]/20/171946 Signed Impressions: Service Date/Time: July 22:14 - CONCLUSION: 1. No acute intracranial abnormality. 2. 2.8 cm hyperdense area seen in the superficial fat at the lower occipital/upper neck subcutaneous fat likely representing a hematoma. Gary Ray MD Chest CT 07/20/17 0000 Signed Impressions: Service Date/Time: July 22:18 - CONCLUSION: Bibasilar areas of consolidation or atelectasis. Gary Ray MD Objective Remarks GENERAL: Alert, oriented 3, NAD. SKIN: Warm and dry. HEAD: Normocephalic. EYES: No scleral icterus. No injection or drainage. NECK: Supple, trachea midline. No JVD or lymphadenopathy. CARDIOVASCULAR: Regular rate and rhythm without murmurs, gallops, or rubs. RESPIRATORY: Breath sounds equal bilaterally. No accessory muscle use. GASTROINTESTINAL: Abdomen soft, non-tender, nondistended. MUSCULOSKELETAL: No cyanosis, or edema. BACK: Nontender without obvious deformity. No CVA tenderness. Procedures Cardiac cath 07/31/2017 1. Multivessel coronary artery disease. 2. Normal left-sided filling pressure. Echo 07/21/2017 Normal left ventricular size. Mild concentric left ventricular hypertrophy. Mild mitral valve regurgitation. There is mild tricuspid valve regurgitation. The estimated pulmonary arterial pressure is 30.8 mmHg. A/P Problem List: (1) NSTEMI (non-ST elevated myocardial infarction) ICD Code: I21.4 - Non-ST elevation (NSTEMI) myocardial infarction Status: Acute (2) Bradycardia ICD Code: R00.1 - Bradycardia, unspecified Status: Acute (3) Syncope and collapse ICD Code: R55 - Syncope and collapse Status: Acute (4) ABDIEL (acute kidney injury) ICD Code: N17.9 - Acute kidney failure, unspecified Assessment and Plan Mr. Ely is a 61 year old male with a history of diabetes who was brought to the ED on 07/20/2017 due to syncope, bradycardia, hypotension. Patient experienced lightheadedness, dizziness and syncopal episode at a convenient store. His heart rate was found to be in the 30s with a junctional rhythm. He had episodes of vomiting after which his heart rate and BP improved. Blood glucose in the field was within normal range. Patient became lethargic in the ED and subsequently underwent intubation. Patient was managed in the ICU through 07/26/2017. He was extubated on 07/25/2017. Due to elevation in troponin , patient underwent cardiac cath on 07/31/2017 which showed multi-vessel CAD. Cardiothoracic surgery consulted. - Sinus bradycardia - Syncope - Non-STEMI - Cardiology following. Patient underwent cardiac cath on 07/31/2017. - Cardiac cath indicated multivessel disease. Cardiothoracic surgery consulted for possible CABG. - Continue aspirin 81 mg, metoprolol 50 mg every 8 hours - Start Lipitor 40mg QHS. - Agitated Delirium - Patient had life-threatening delirium. He required Seroquel and Haldol. - Acute Hypoxic Respiratory failure, resolved - Patient was intubated and was extubated successfully. - Continue DuoNeb treatment as needed. - Currently on room air - Pulmonary edema, improving - CTA shows bilateral pleural effusion. - Continue with Lasix. Strict I/Os. Continue to monitor clinically. - Diabetes - Hold metformin due to lactic acidosis - Insulin sliding scale. Goal blood glucose 140-180 while in the hospital. - Acute kidney injury - Hypokalemia - Creatinine 1.78 on admission. Improved but trending up again. Creatinine 1.51 on 08/01/2017 - K+ 2.8 ==> 3.8. Full code. Start Heparin SQ for DVT prophylaxis. Rick Selby DO Aug 01, 2017 8:26 am
[2017-08-01] MEDS: ARTIFICIAL TEARS OPTH SOLN 15 ML BTL EACH EYE SCH ×3 (09:00→16:35)
[2017-08-01] MEDS: FUROSEMIDE 40 MG/4 ML VIAL IV PUSH SCH ×2 (09:02→16:35)
[2017-08-01] MEDS: FAMOTIDINE 20 MG/2 ML VIAL IV PUSH SCH ×2 (09:02→22:46)
[2017-08-01] MEDS: DOCUSATE SODIUM 50 MG/SENNA 8.6 MG TAB PO SCH ×2 (09:02→22:38)
[2017-08-01] MEDS: ASPIRIN EC 81 MG TABEC PO SCH (09:02)
[2017-08-01] MEDS: INSULIN ASPART SUPPLEMENTAL SCALE SQ SCH ×4 (09:02→22:51)
[2017-08-01] MEDS: SODIUM CHLORIDE 0.9% FLUSH 10 ML FLUSH IV FLUSH SCH ×2 (09:03→22:47)
--- NOTE | 2017-08-01 11:10 | PD.CAR.PN ---
CVT Progress Note Subjective/Hospital Course: RISK SCORES About the STS Risk Calculator Procedure: CAB Only Risk of Mortality: 0.816% Morbidity or Mortality: 15.49% Long Length of Stay: 5.28% Short Length of Stay: 47.455% Permanent Stroke: 1.359% Prolonged Ventilation: 9.317% DSW Infection: 0.56% Renal Failure: 5.407% Reoperation: 5.356% Objective: Vital Signs Date Time Temp Pulse Resp B/P (MAP) Pulse Ox O2 Delivery O2 Flow Rate FiO2 08/01/17 08:00 Room Air 08/01/17 08:00 80 08/01/17 08:00 97.8 83 18 95/62 (73) 98 08/01/17 06:56 20 08/01/17 06:00 80 08/01/17 05:00 84 08/01/17 04:00 80 08/01/17 03:00 98.3 88 14 116/75 (89) 97 08/01/17 03:00 83 08/01/17 02:00 82 08/01/17 01:00 84 08/01/17 00:00 90 07/31/17 23:00 92 07/31/17 23:00 98.7 94 18 96/62 (73) 98 07/31/17 22:00 94 07/31/17 21:00 100 07/31/17 20:00 98 07/31/17 19:00 98.6 98 18 109/74 (86) 98 07/31/17 19:00 99 07/31/17 18:00 96 07/31/17 17:00 88 07/31/17 16:00 86 07/31/17 15:00 97.7 87 21 94/60 (71) 99 07/31/17 15:00 88 07/31/17 15:00 99 Room Air 07/31/17 15:00 88 07/31/17 14:19 101 22 103/72 (82) 99 07/31/17 14:00 92 07/31/17 13:41 98.7 98 22 126/82 (97) 100 07/31/17 13:40 98 07/31/17 12:00 97 Labs: Laboratory Tests Test 08/01/17 05:55 Activated Partial Thromboplast Time 26.2 SEC (24.3-30.1) Blood Urea Nitrogen 37 MG/DL (7-18) Creatinine 1.51 MG/DL (0.60-1.30) Random Glucose 159 MG/DL (74-106) Calcium Level 9.5 MG/DL (8.5-10.1) Sodium Level 136 MEQ/L (136-145) Potassium Level 3.8 MEQ/L (3.5-5.1) Chloride Level 98 MEQ/L (98-107) Carbon Dioxide Level 30.5 MEQ/L (21.0-32.0) Anion Gap 8 MEQ/L (5-15) Estimat Glomerular Filtration Rate 57 ML/MIN (>89) Result Diagram: 07/30/17 0656 08/01/17 0555 (1) NSTEMI (non-ST elevated myocardial infarction) (2) Bradycardia Snow Lopes Aug 01, 2017 11:10
--- NOTE | 2017-08-01 11:44 | MB ---
cc: MAYTE BRUNER DATE OF CONSULTATION: 08/01/2017 DATE OF : 1955 HISTORY OF PRESENT ILLNESS A 61-year-old male admitted on 07/20/2017 after having a syncopal episode. He apparently was at a convenience store, felt light-headed and dizzy, lay down on the ground. Per the ER note he became unconscious for a few minutes and returned to normal. On arrival he was bradycardic with a heart rate in the 30s with a junctional rhythm. Initial blood pressure was in the 60s. Blood sugar was within normal limits. He then proceeded to vomit and his heart rate went to the 70s and his blood pressure did go up. Apparently he was intubated in the ED for airway protection. Upon arrival it was found that his hemoglobin was 9, subsequently later was 7.9. He did receive 2 units of blood. Troponin was elevated at 10 and then reached 37 and then subsequently the last troponin was 7.63. The patient remained intubated and was extubated on the . He was ruled in for a non-STEMI. He underwent cardiac by Dr. Krishnan which showed multivessel disease with 80% proximal LAD, distal LAD 90%, diagonal 80%, OM 80%, RCA 90%. We were consulted to evaluate for coronary artery bypass grafting. EF is pending. From the echocardiogram there was some mild LVH, mild mitral valve regurgitation, mild tricuspid regurgitation. PAST MEDICAL HISTORY 1. Hypertension. 2. Diabetes mellitus. 3. Chronic pain syndrome. PAST SURGICAL HISTORY No past surgical history. ALLERGIES No known allergies. MEDICATIONS Home meds include Lantus 5 units subcu q.h.s. The patient is currently on: 1. Lasix. 2. Trandate. 3. Roxicodone. 4. Lopressor. 5. Seroquel 100 q.8h. 6. PRN Haldol, which he has not had since the . FAMILY HISTORY Noncontributory. SOCIAL HISTORY Occasional marijuana. No alcohol or illicit drugs other than marijuana. REVIEW OF SYSTEMS GENERAL: No night sweats, fever, heat or cold intolerance. SKIN: No psoriasis, itching or hives. HEENT: No blurred vision or hearing loss. RESPIRATORY: No cough or shortness of breath. CARDIOVASCULAR: No recent chest pain. GASTROINTESTINAL: No diarrhea or vomiting. GENITOURINARY: No burning, frequency, urgency. SUPERVISOR FELTING: No history of seizure disorder. ENDOCRINE: Positive for diabetes. PHYSICAL EXAMINATION VITAL SIGNS: Blood pressure 100/60, heart rate 80, afebrile. 98% on room air. GENERAL: Patient is awake, alert, in no acute distress. HEENT: Head is normocephalic, atraumatic. Pupils are equal and reactive. Oral mucosa pink and moist. NECK: Supple. No JVD. HEART: S1, S2, regular rate and rhythm. No audible rubs, murmurs or gallops. LUNGS: Clear to auscultation. No wheezes, rales or rhonchi. ABDOMEN: Soft, nontender. No masses or organomegaly. EXTREMITIES: No cyanosis, clubbing or edema. IMPRESSION AND PLAN A 61-year-old male status post syncopal episode, intubation for airway protection, extubated on the , now currently on room air, status post heart catheterization on the revealing multivessel disease. Await the EF on the echo report for STS calculation. In the meantime the cardiac films will be reviewed by Dr. Mayte Bruner and evaluation for cardiac surgery to see if the patient is a candidate or not. In the meantime the patient needs to have the Seroquel dose reduced and will discontinue the Haldol off his EMR at this time. Further orders pending per Dr. Mayte Bruner. Dictated by: TONY Tabares MD ASAD Moser/ELOY /10:46 AM /11:42 AM
--- NOTE | 2017-08-01 12:39 | RADRPT ---
EXAM DATE/TIME: 08/01/2017 11:38 [facility] COMPARISON: No previous studies available for comparison. INDICATIONS : Pre-Op cardiac surgery. MEDICAL HISTORY : Hypertension. Diabetes. MRSA. SURGICAL HISTORY : Right toe amputation. I&D, left arm. ENCOUNTER: Initial ACUITY: 1 day PAIN SCORE: 0/10 LOCATION: Bilateral legs. TECHNIQUE: Venous ultrasound of the left and right leg was performed from the inguinal ligament to the proximal calf. Real-time, color Doppler and spectral tracing, compression and augmentation techniques were us ed. FINDINGS: RIGHT LEG: There is normal compressibility of the deep venous system from the inguinal region to the proximal ca lf. No echogenic clot is seen in the lumen of the common femoral, femoral, popliteal, and posterior tibial veins. There is a normal response of the venous system to proximal and distal augmentation an d respiration. LEFT LEG: There is normal compressibility of the deep venous system from the inguinal region to the proximal ca lf. No echogenic clot is seen in the lumen of the common femoral, femoral, popliteal, and posterior tibial veins. There is a normal response of the venous system to proximal and distal augmentation an d respiration. CONCLUSION: No evidence of deep venous thrombosis within the lower extremities. Ok Crouch MD on August 01, 2017 at 12:37 Board Certified Radiologist. This report was verified electronically.
--- NOTE | 2017-08-01 12:41 | RADRPT ---
EXAM DATE/TIME: 08/01/2017 11:47 [facility] COMPARISON: No previous studies available for comparison. INDICATIONS : Pre-Op cardiac surgery. MEDICAL HISTORY : Hypertension. Diabetes. MRSA. SURGICAL HISTORY : Right toe amputation. I&D, left arm. ENCOUNTER: Initial ACUITY: 1 day PAIN SCORE: 0/10 LOCATION: Bilateral legs. GREATER SAPHENOUS VEIN THIGH: PROXIMAL: Right 3 mm Left 2 mm MID: Right Non-visualized Left Non-visualized DISTAL: Right Non-visualized Left Non-visualized CALF: PROXIMAL: Right Non-visualized Left Non-visualized MID: Right Non-visualized Left Non-visualized DISTAL: Right Non-visualized Left Non-visualized FINDINGS: The venous system of the lower extremities are patent by color Doppler imaging. Measurements of the leg veins (in mm) are listed above. The saphenous veins were not well-visualized due to their small s izes bilaterally. CONCLUSION: Saphenous vein measurements as above. Ok Crouch MD on August 01, 2017 at 12:38 Board Certified Radiologist. This report was verified electronically.
--- NOTE | 2017-08-01 12:43 | RADRPT ---
EXAM DATE/TIME: 08/01/2017 12:13 [facility] COMPARISON: No previous studies available for comparison. INDICATIONS : Pre-Op cardiac surgery. MEDICAL HISTORY : Hypertension. Diabetes. MRSA. SURGICAL HISTORY : Right toe amputation. I&D, left arm. ENCOUNTER: Initial ACUITY: 1 day PAIN SCORE: 0/10 LOCATION: Bilateral neck PEAK SYSTOLIC VELOCITIES (cm/sec): ICA/CCA RATIO: Right: 1.1 Left: 0.6 ICA: Right: 92 Left: 60 CCA: Right: 82 Left: 97 ECA: Right: 68 Left: 68 VERTEBRAL: Right: 50 antegrade Left: 57 antegrade Elevated flow velocities and ICA/CCA ratios have been found to correlate with increased degrees of vessel stenosis, calculated as percentage of diameter relative to a normal segment of distal ICA/CCA FINDINGS: RIGHT CAROTID: No significant stenosis is visualized. The waveforms are within normal limits. LEFT CAROTID: No significant stenosis is visualized. The waveforms are within normal limits. VERTEBRAL ARTERIES: Antegrade flow is seen in both vertebral arteries. MISCELLANEOUS: None. CONCLUSION: No hemodynamically significant stenosis. Ok Crouch MD on August 01, 2017 at 12:41 Board Certified Radiologist. This report was verified electronically.
--- NOTE | 2017-08-01 16:17 | ECHRPT ---
Indication: ef assessment of chf CONCLUSIONS The LVEF ejection ia approximately 40%. The proximal and mid-inferior wall appears akinetic with christiano pected scarring. The posterior wall is hypokinetic. The apex anterior and laterals move normally. BP: 95 / 62 HR: 80 Rhythm: MEASUREMENTS (Male / Female) Normal Values Technical Quality: 2D ECHO LV Diastolic Diameter PLAX 4.0 cm 4.2 - 5.9 / 3.9 - 5.3 cm LV Systolic Diameter PLAX 2.7 cm IVS Diastolic Thickness 1.0 cm 0.6 - 1.0 / 0.6 - 0.9 cm LVPW Diastolic Thickness 1.0 cm 0.6 - 1.0 / 0.6 - 0.9 cm LV Relative Wall Thickness 0.5 LV Ejection Fraction MOD BP 61.5 % >= 55 % LV Cardiac Index MOD BP 1717.9 cm/minm LV Ejection Fraction MOD 4C 61.6 % LV Cardiac Index MOD 4C 1932.6 cm/minm LV Ejection Fraction 4C AL 63.6 % LV Cardiac Index 4C AL 2078.2 cm/minm LV Ejection Fraction MOD 2C 58.2 % LV Cardiac Index MOD 2C 1374.3 cm/minm LV Ejection Fraction 2C AL 60.9 % LV Cardiac Index 2C AL 1462.7 cm/minm FINDINGS LEFT VENTRICLE The LVEF ejection ia approximately 40%. The proximal and mid-inferior wall appears akinetic with christiano pected scarring. The posterior wall is hypokinetic. The apex anterior and laterals move normally. Bennett Mitchell MD (Electronically Signed) Final Date:01 August 2017 16:16
[2017-08-01 16:31] LABS: HEMOGLOBIN A1a 1.1 %; HEMOGLOBIN A1b 2.1 %; HEMOGLOBIN Ao 82.2 %; HEMOGLOBIN LA1C 2.7 %; HEMOGLOBIN P3 4.6 %
[2017-08-01] MEDS: HEPARIN SODIUM - SQ 10,000 UNITS/ML VIAL SQ SCH (22:38)
[2017-08-01] MEDS: ATORVASTATIN 40 MG TAB PO SCH (22:38)
[2017-08-02] VITALS (22 sets, daily range): BP systolic 93–129; BP diastolic 63–84; PULSE 64–90; RESP 14–16; TEMP 97.6–98.3; O2SAT 96–100
[2017-08-02] MEDS: CHLORHEXIDINE GLUCONATE 2 % 1 PACK (2 CLOTHS) TOP SCH (04:00)
[2017-08-02] MEDS: METOPROLOL TARTRATE 50 MG TAB PO SCH ×3 (05:33→20:33)
[2017-08-02] MEDS: QUEtiapine FUMARATE 100 MG TAB PO SCH (05:33)
[2017-08-02] MEDS: oxyCODONE HCL ORAL CONC 5 MG/0.25 ML SYRINGE PO SCH ×3 (05:34→20:35)
[2017-08-02 06:28] LABS: MEAN CELL VOLUME 91.7 FL (80.0-100.0); MEAN CORPUSCULAR HGB CONC 33.8 % (32.0-36.0); PLATELET COUNT 340 TH/MM3 (150-450); RED BLOOD COUNT 3.71 MIL/MM3 (4.50-5.90); RED CELL DISTRIBUTION WIDTH 14.5 % (11.6-17.2); REVIEW FLAG FINAL; WHITE BLOOD COUNT 8.7 TH/MM3 (4.0-11.0)
[2017-08-02 06:45] LABS: APTT (PATIENT) 26.2 SEC (24.3-30.1)
[2017-08-02] MEDS: FAMOTIDINE 20 MG/2 ML VIAL IV PUSH SCH ×2 (08:33→20:36)
[2017-08-02] MEDS: DOCUSATE SODIUM 50 MG/SENNA 8.6 MG TAB PO SCH ×2 (08:33→20:33)
[2017-08-02] MEDS: INSULIN ASPART SUPPLEMENTAL SCALE SQ SCH ×4 (08:34→20:36)
[2017-08-02] MEDS: HEPARIN SODIUM - SQ 10,000 UNITS/ML VIAL SQ SCH ×2 (08:34→20:32)
[2017-08-02] MEDS: ASPIRIN EC 81 MG TABEC PO SCH (08:34)
[2017-08-02] MEDS: FUROSEMIDE 40 MG/4 ML VIAL IV PUSH SCH ×2 (08:35→17:12)
[2017-08-02] MEDS: ARTIFICIAL TEARS OPTH SOLN 15 ML BTL EACH EYE SCH ×3 (08:36→17:14)
[2017-08-02] MEDS: SODIUM CHLORIDE 0.9% FLUSH 10 ML FLUSH IV FLUSH SCH ×2 (08:36→20:32)
--- NOTE | 2017-08-02 09:13 | HHI.PR ---
Subjective Remarks Follow up for bradycardia, NSTEMI. Mr. Ely is currently doing well. Eating breakfast in bed. Denies any chest pain, shortness of breath, fever or chills. Objective Vitals Vital Signs Date Time Temp Pulse Resp B/P (MAP) Pulse Ox O2 Delivery O2 Flow Rate FiO2 08/02/17 07:31 16 08/02/17 04:18 98.2 80 16 129/84 (99) 98 08/02/17 04:18 Room Air 08/02/17 04:00 82 08/02/17 03:00 78 08/02/17 02:00 82 08/02/17 01:00 84 08/02/17 00:06 98.3 90 16 121/76 (91) 96 08/02/17 00:00 84 08/02/17 00:00 Room Air 08/01/17 23:00 97 08/01/17 22:00 84 08/01/17 21:00 84 08/01/17 20:30 98.1 96 16 132/85 (101) 99 08/01/17 20:00 Room Air 08/01/17 20:00 88 08/01/17 19:00 88 08/01/17 18:00 88 08/01/17 17:00 82 08/01/17 16:00 Room Air 08/01/17 16:00 98.4 84 16 100/68 (79) 100 08/01/17 16:00 86 08/01/17 15:00 86 08/01/17 14:00 84 08/01/17 13:00 96 08/01/17 12:00 Room Air 08/01/17 12:00 90 08/01/17 12:00 97.9 97 18 132/87 (102) 100 08/01/17 11:00 78 08/01/17 10:00 90 I/O 08/01/17 08/01/17 08/01/17 08/02/17 08/02/17 08/02/17 07:00 15:00 23:00 07:00 15:00 23:00 Intake Total 240 ml 860 ml 480 ml Output Total 900 ml 750 ml 400 ml Balance -660 ml 110 ml 80 ml Intake Oral 240 ml 860 ml 480 ml Output Urine Total 900 ml 750 ml 400 ml # Bowel Movements 0 0 Result Diagram: 08/02/17 0535 08/01/17 0555 Imaging Last Impressions Lower Extremity Ultrasound 08/01/17 Signed Impressions: Service Date/Time: Tuesday, August 01, 2017 11:47 - CONCLUSION: Saphenous vein measurements as above. Ok Crouch MD Carotid Artery Ultrasound 08/01/17 Signed Impressions: Service Date/Time: Tuesday, August 01, 2017 12:13 - CONCLUSION: No hemodynamically significant stenosis. Ok Crouch MD Chest X-Ray 07/27/17 Signed Impressions: Service Date/Time: July 12:48 - CONCLUSION: 1. Development of right effusion and bibasilar intraalveolar infiltrates suggesting pulmonary edema. Anibal Alatorre Jr., MD CT Angiography 07/27/17 Signed Impressions: Service Date/Time: July 13:57 - CONCLUSION: 1. Exam severely limited by motion artifact 2. Large bilateral effusions 3. Diffuse edema versus pneumonia 4. No evidence of pulmonary embolism. Esvin Dotson MD Abdomen/Pelvis CT [id number] Signed Impressions: Service Date/Time: July 22:18 - CONCLUSION: 1. Mild amount of ascites seen around the liver. 2. Mild thickening of the gallbladder wall. This is nonspecific. Calcified gallstones are not seen. 3. Moderate distension of the urinary bladder. There is Naqvi catheter in the urinary bladder. Gary Ray MD Head CT [id number] Signed Impressions: Service Date/Time: July 22:14 - CONCLUSION: 1. No acute intracranial abnormality. 2. 2.8 cm hyperdense area seen in the superficial fat at the lower occipital/upper neck subcutaneous fat likely representing a hematoma. Gary Ray MD Chest CT 07/20/17 Signed Impressions: Service Date/Time: July 22:18 - CONCLUSION: Bibasilar areas of consolidation or atelectasis. Gary Ray MD Objective Remarks GENERAL: Alert, oriented 3, NAD. SKIN: Warm and dry. HEAD: Normocephalic. EYES: No scleral icterus. No injection or drainage. NECK: Supple, trachea midline. No JVD or lymphadenopathy. CARDIOVASCULAR: Regular rate and rhythm without murmurs, gallops, or rubs. RESPIRATORY: Breath sounds equal bilaterally. No accessory muscle use. GASTROINTESTINAL: Abdomen soft, non-tender, nondistended. MUSCULOSKELETAL: No cyanosis, or edema. BACK: Nontender without obvious deformity. No CVA tenderness. Procedures Cardiac cath 07/31/2017 1. Multivessel coronary artery disease. 2. Normal left-sided filling pressure. Echo 07/21/2017 Normal left ventricular size. Mild concentric left ventricular hypertrophy. Mild mitral valve regurgitation. There is mild tricuspid valve regurgitation. The estimated pulmonary arterial pressure is 30.8 mmHg. A/P Problem List: (1) NSTEMI (non-ST elevated myocardial infarction) ICD Code: I21.4 - Non-ST elevation (NSTEMI) myocardial infarction Status: Acute (2) Bradycardia ICD Code: R00.1 - Bradycardia, unspecified Status: Acute (3) Syncope and collapse ICD Code: R55 - Syncope and collapse Status: Acute (4) ABDIEL (acute kidney injury) ICD Code: N17.9 - Acute kidney failure, unspecified Assessment and Plan Mr. Ely is a 61 year old male with a history of diabetes who was brought to the ED on 07/20/2017 due to syncope, bradycardia, hypotension. Patient experienced lightheadedness, dizziness and syncopal episode at a convenient store. His heart rate was found to be in the 30s with a junctional rhythm. He had episodes of vomiting after which his heart rate and BP improved. Blood glucose in the field was within normal range. Patient became lethargic in the ED and subsequently underwent intubation. Patient was managed in the ICU through 07/26/2017. He was extubated on 07/25/2017. Due to elevation in troponin , patient underwent cardiac cath on 07/31/2017 which showed multi-vessel CAD. Cardiothoracic surgery consulted. - Sinus bradycardia - Syncope - Non-STEMI - Cardiology following. Patient underwent cardiac cath on 07/31/2017. - Cardiac cath indicated multivessel disease. Cardiothoracic surgery consulted for possible CABG. - Continue aspirin 81 mg, metoprolol 50 mg every 8 hours - Lipitor 40mg QHS. - Agitated Delirium - Patient had life-threatening delirium. He required Seroquel and Haldol. - Currently patient is very cooperative and pleasant. We'll reduce Seroquel from 100 mg to 25 mg every 8 hours. - Discontinue Haldol. - Acute Hypoxic Respiratory failure, resolved - Patient was intubated and was extubated successfully. - Continue DuoNeb treatment as needed. - Currently on room air - Pulmonary edema, improving - CTA shows bilateral pleural effusion. - Continue with Lasix. Strict I/Os. Continue to monitor clinically. - Diabetes - Hold metformin due to lactic acidosis - Insulin sliding scale. Goal blood glucose 140-180 while in the hospital. - Acute kidney injury - Hypokalemia - Creatinine 1.78 on admission. Improved but trending up again. Creatinine 1.51 on 08/01/2017 - K+ 2.8 ==> 3.8. Full code. Heparin SQ for DVT prophylaxis. Rick Selby DO Aug 02, 2017 9:13 am
[2017-08-02] MEDS: QUEtiapine FUMARATE 25 MG TAB PO SCH ×2 (13:33→21:21)
--- NOTE | 2017-08-02 14:37 | PD.CAR.PN ---
CVT Progress Note Subjective/Hospital Course: 61/ male NSTEMI , multi vessel disease EF 40% s/p heart cath by Dr Krishnan s/p Resp Failure resolved, syncopal episode now stable for discharge, plan is to allow pt to recover at home then return for CABG x 3 08/15/17 as outpt , pt has poor leg veins per vein mapping eval use of MARINELLI and RICARDO at time of surgery Objective: GENERAL: SKIN: Warm and dry. HEAD: Normocephalic. EYES: No scleral icterus. No injection or drainage. NECK: Supple, trachea midline. No JVD or lymphadenopathy. CARDIOVASCULAR: Regular rate and rhythm without murmurs, gallops, or rubs. RESPIRATORY: Breath sounds equal bilaterally. No accessory muscle use. GASTROINTESTINAL: Abdomen soft, non-tender, nondistended. MUSCULOSKELETAL: No cyanosis, or edema. BACK: Nontender without obvious deformity. No CVA tenderness. Vital Signs Date Time Temp Pulse Resp B/P (MAP) Pulse Ox O2 Delivery O2 Flow Rate FiO2 08/02/17 13:12 82 08/02/17 12:10 72 08/02/17 11:00 83 08/02/17 11:00 97.6 81 16 98/63 (75) 100 08/02/17 11:00 100 Room Air 08/02/17 10:00 80 08/02/17 09:00 80 08/02/17 08:00 97.7 80 16 93/64 (74) 99 08/02/17 08:00 64 08/02/17 08:00 99 Room Air 08/02/17 07:31 16 08/02/17 04:18 98.2 80 16 129/84 (99) 98 08/02/17 04:18 Room Air 08/02/17 04:00 82 08/02/17 03:00 78 08/02/17 02:00 82 08/02/17 01:00 84 08/02/17 00:06 98.3 90 16 121/76 (91) 96 08/02/17 00:00 84 08/02/17 00:00 Room Air 08/01/17 23:00 97 08/01/17 22:00 84 08/01/17 21:00 84 08/01/17 20:30 98.1 96 16 132/85 (101) 99 08/01/17 20:00 Room Air 08/01/17 20:00 88 08/01/17 19:00 88 08/01/17 18:00 88 08/01/17 17:00 82 08/01/17 16:00 Room Air 08/01/17 16:00 98.4 84 16 100/68 (79) 100 08/01/17 16:00 86 08/01/17 15:00 86 Labs: Laboratory Tests Test 08/02/17 05:35 White Blood Count 8.7 TH/MM3 (4.0-11.0) Red Blood Count 3.71 MIL/MM3 (4.50-5.90) Hemoglobin 11.5 GM/DL (13.0-17.0) Hematocrit 34.0 % (39.0-51.0) Mean Corpuscular Volume 91.7 FL (80.0-100.0) Mean Corpuscular Hemoglobin 31.0 PG (27.0-34.0) Mean Corpuscular Hemoglobin Concent 33.8 % (32.0-36.0) Red Cell Distribution Width 14.5 % (11.6-17.2) Platelet Count 340 TH/MM3 (150-450) Mean Platelet Volume 8.5 FL (7.0-11.0) Activated Partial Thromboplast Time 26.2 SEC (24.3-30.1) Result Diagram: 08/02/17 0535 08/01/17 0555 (1) NSTEMI (non-ST elevated myocardial infarction) Plan: pt on ASA, statin and BB stable for dc he will return for surgery 08/15/17 (2) Bradycardia Snow Lopes Aug 02, 2017 14:37
[2017-08-02] MEDS: ATORVASTATIN 40 MG TAB PO SCH (20:33)
[2017-08-03] VITALS (11 sets, daily range): BP systolic 100–104; BP diastolic 62–73; PULSE 69–87; RESP 14–16; TEMP 97.7–98.3; O2SAT 99
[2017-08-03] MEDS: CHLORHEXIDINE GLUCONATE 2 % 1 PACK (2 CLOTHS) TOP SCH (01:56)
[2017-08-03] MEDS: METOPROLOL TARTRATE 50 MG TAB PO SCH (04:59)
[2017-08-03] MEDS: QUEtiapine FUMARATE 25 MG TAB PO SCH (04:59)
[2017-08-03] MEDS: oxyCODONE HCL ORAL CONC 5 MG/0.25 ML SYRINGE PO SCH (05:00)
[2017-08-03 07:08] LABS: APTT (PATIENT) 26.2 SEC (24.3-30.1)
[2017-08-03] MEDS: INSULIN ASPART SUPPLEMENTAL SCALE SQ SCH (08:00)
[2017-08-03] MEDS ORDERED: PERC7.5T13 PO (08:02)
[2017-08-03] MEDS ORDERED: ASPI-99 PO (08:02)
[2017-08-03] MEDS ORDERED: IPRASOL INH (08:02)
[2017-08-03] MEDS ORDERED: QUET1TAB7 PO (08:02)
[2017-08-03] MEDS ORDERED: ATOR40TA16 PO (08:02)
[2017-08-03] MEDS ORDERED: METO-309 PO (08:02)
[2017-08-03] MEDS ORDERED: FAMO20TA2 PO (08:02)
[2017-08-03] MEDS ORDERED: NOVOLOGP2 SQ (08:02)
[2017-08-03] MEDS ORDERED: TORS5TAB2 PO (08:03)
--- NOTE | 2017-08-03 08:05 | HHI.DS ---
Discharge Summary Admission Date Jul 20, 2017 at 9:37 pm Discharge Date: Aug 03, 2017 Admitting Diagnosis Sepsis, Symptomatic Bradycardia (1) NSTEMI (non-ST elevated myocardial infarction) ICD Code: I21.4 - Non-ST elevation (NSTEMI) myocardial infarction Status: Acute (2) Bradycardia ICD Code: R00.1 - Bradycardia, unspecified Status: Acute (3) Syncope and collapse ICD Code: R55 - Syncope and collapse Status: Acute (4) ABDIEL (acute kidney injury) ICD Code: N17.9 - Acute kidney failure, unspecified Procedures Cardiac cath 07/31/2017 1. Multivessel coronary artery disease. 2. Normal left-sided filling pressure. Echo 07/21/2017 Normal left ventricular size. Mild concentric left ventricular hypertrophy. Mild mitral valve regurgitation. There is mild tricuspid valve regurgitation. The estimated pulmonary arterial pressure is 30.8 mmHg. Brief History - From Admission 61-year-old male who presents for evaluation of syncopal episode. As per EMS, patient was at convenience store today, reports that he felt lightheaded and dizzy and laid down on the ground. Patient reports that he became unconscious for a few minutes and then return to normal. When EMS arrived on scene, patient was bradycardic with a heart rate in the 30s with a junctional rhythm. Initial systolic blood pressure was in the 60s. Reports that her blood sugar was within normal limits. Patient then proceeded to vomit, heart rate and went to the 70s. After patient vomited, his blood pressure did go up to 90 systolic. Patient reports that he felt fine prior to the episode at a convenience store today. Patient reports only history of diabetes and he denies any drug or alcohol abuse. Patient denies any headache, chest pain, abdominal pain, patient with no other complaints at this time. In the emergency department he had another episode of lethargy and altered consciousness and was intubated by ED attending for an airway protection. CBC/BMP: 08/02/17 0535 08/01/17 0555 Significant Findings Laboratory Tests Test 07/31/17 12:15 08/01/17 05:55 08/01/17 13:00 08/01/17 14:46 Blood Urea Nitrogen 31 MG/DL (7-18) 37 MG/DL (7-18) Creatinine 1.53 MG/DL (0.60-1.30) 1.51 MG/DL (0.60-1.30) Random Glucose 151 MG/DL (74-106) 159 MG/DL (74-106) Sodium Level 135 MEQ/L (136-145) Chloride Level 96 MEQ/L (98-107) Estimat Glomerular Filtration Rate 56 ML/MIN (>89) 57 ML/MIN (>89) Hemoglobin A1c 6.8 % (4.3-6.0) Test 08/02/17 05:35 08/03/17 06:15 Red Blood Count 3.71 MIL/MM3 (4.50-5.90) Hemoglobin 11.5 GM/DL (13.0-17.0) Hematocrit 34.0 % (39.0-51.0) PE at Discharge GENERAL: Alert, oriented 3, NAD. SKIN: Warm and dry. HEAD: Normocephalic. EYES: No scleral icterus. No injection or drainage. NECK: Supple, trachea midline. No JVD or lymphadenopathy. CARDIOVASCULAR: Regular rate and rhythm without murmurs, gallops, or rubs. RESPIRATORY: Breath sounds equal bilaterally. No accessory muscle use. GASTROINTESTINAL: Abdomen soft, non-tender, nondistended. MUSCULOSKELETAL: No cyanosis, or edema. BACK: Nontender without obvious deformity. No CVA tenderness. Pt update on day of discharge Patient is doing well. No acute concerns. Hospital Course Mr. Ely is a 61 year old male with a history of diabetes who was brought to the ED on 07/20/2017 due to syncope, bradycardia, hypotension. Patient experienced lightheadedness, dizziness and syncopal episode at a convenient store. His heart rate was found to be in the 30s with a junctional rhythm. He had episodes of vomiting after which his heart rate and BP improved. Blood glucose in the field was within normal range. Patient became lethargic in the ED and subsequently underwent intubation. Patient was managed in the ICU through 07/26/2017. He was extubated on 07/25/2017. Due to elevation in troponin , patient underwent cardiac cath on 07/31/2017 which showed multi-vessel CAD. Cardiothoracic surgery consulted. - Sinus bradycardia - Syncope - Non-STEMI - Cardiology following. Patient underwent cardiac cath on 07/31/2017. - Cardiac cath indicated multivessel disease. Cardiothoracic surgery consulted for possible CABG. - Cardiothoracic surgery recommended that Pt can be discharged to SNF and return to the hospital on 08/15/2017 for surgery. - Continue aspirin 81 mg, metoprolol 50 mg every 8 hours - Lipitor 40mg QHS. - Agitated Delirium - Patient had life-threatening delirium. He required Seroquel and Haldol. - Currently patient is very cooperative and pleasant. We'll reduce Seroquel from 100 mg to 25 mg every 8 hours. - Discontinue Haldol. - Acute Hypoxic Respiratory failure, resolved - Patient was intubated and was extubated successfully. - Continue DuoNeb treatment as needed. - Currently on room air - Pulmonary edema, improving - CTA shows bilateral pleural effusion. - Continue with Lasix. Strict I/Os. Continue to monitor clinically. - Diabetes - Hold metformin due to lactic acidosis - Insulin sliding scale. Goal blood glucose 140-180 while in the hospital. - Acute kidney injury - Hypokalemia - Creatinine 1.78 on admission. Improved but trending up again. Creatinine 1.51 on 08/01/2017 - K+ 2.8 ==> 3.8. Will discharge patient to SNF. Pt Condition on Discharge: Good Discharge Disposition: Discharge to SNF Discharge Time: > 30 minutes Discharge Instructions DIET: Follow Instructions for: Diabetic Diet Activities you can perform: Regular-No Restrictions New Medications: Famotidine (Famotidine) 20 Mg Tab 20 MG PO BID for Reflux, #60 TAB 0 Refills Insulin Aspart Inj (Novolog Inj) 1,000 Unit/10 Ml Vial 1-9 UNITS SQ ACHS for Blood Sugar Management, #10 ML 0 Refills Max dose at bedtime:( )units; sugars less than 70,(0)units; sugars 150-199,(1) unit; sugars 200-249,(3) units; sugars 250-299,(5) units; sugars 300-349,(7) units; sugars greater than 349,(9) units Oxycodone-Acetaminophen (Percocet) 7.5-325 mg Tab 1 TAB PO Q6H PRN for PAIN for 3 Days, #12 TAB 0 Refills Torsemide (Torsemide) 5 Mg Tab 5 MG PO BID for Heart, #60 TAB [address] (Adult Aspirin EC Low Strength) 81 Mg Tabec 81 MG PO DAILY for Blood Clot Prevention, #30 TAB Atorvastatin (Atorvastatin) 40 Mg Tab 40 MG PO HS for Cholesterol Management, #30 TAB Ipratropium-Albuterol Neb (Duoneb) 0.5-2.5 Mg/3 Ml Neb 1 AMPULE INH Q2HR NEB PRN for WHEEZING for 30 Days, ML Metoprolol Tartrate (Lopressor) 50 Mg Tab 50 MG PO Q8HR for Heart for 30 Days, TAB Quetiapine (Quetiapine) 25 Mg Tab 25 MG PO Q8HR for Anxiety and/or Insomnia, #30 TAB Continued Medications: Insulin Glargine (Lantus) 100 Units/Ml Inj 5 UNITS SQ HS, #10 ML 1 Refill Promethazine 25 mg supp (Phenergan 25 mg supp) 25 Mg Sup 12.5 - 25 MG CO Q6HPRN, #5 FOR NAUSEA/VOMITING Discontinued Medications: Promethazine Hcl (Promethazine Hcl) 25 Mg Tab 12.5 - 25 MG PO Q6HPRN, #10 FOR NAUSEA/VOMITING Rick Selby DO Aug 03, 2017 08:05
[2017-08-03] MEDS: SODIUM CHLORIDE 0.9% FLUSH 10 ML FLUSH IV FLUSH SCH (09:00)
[2017-08-03] MEDS: FUROSEMIDE 40 MG/4 ML VIAL IV PUSH SCH (09:24)
[2017-08-03] MEDS: HEPARIN SODIUM - SQ 10,000 UNITS/ML VIAL SQ SCH (09:24)
[2017-08-03] MEDS: ARTIFICIAL TEARS OPTH SOLN 15 ML BTL EACH EYE SCH (09:24)
[2017-08-03] MEDS: DOCUSATE SODIUM 50 MG/SENNA 8.6 MG TAB PO SCH (09:25)
[2017-08-03] MEDS: FAMOTIDINE 20 MG/2 ML VIAL IV PUSH SCH (09:25)
[2017-08-03] MEDS: ASPIRIN EC 81 MG TABEC PO SCH (09:25)
== END 2017-08-03 11:34 | DRG 280 ==
LOC: NEPC 19:34 → NEDA 21:37 → HIMW 07-21 00:50 → HCIN 07-29 22:45
PROVIDERS: ADMIT Hospitalist; ATTEND Hospitalist
PROC: 5A1955Z Respiratory Ventilation, Greater than 96 Consecutive Hours (ICD-10-PCS; principal; 2017-07-20)
PROC: 0BH17EZ Insertion of Endotracheal Airway into Trachea, Via Natural or Artificial Opening (ICD-10-PCS; 2017-07-20)
PROC: 05HP33Z Insertion of Infusion Device into Right External Jugular Vein, Percutaneous Approach (ICD-10-PCS; 2017-07-20)
PROC: 0T9B70Z Drainage of Bladder with Drainage Device, Via Natural or Artificial Opening (ICD-10-PCS; 2017-07-24)
PROC: 30233N1 Transfusion of Nonautologous Red Blood Cells into Peripheral Vein, Percutaneous Approach (ICD-10-PCS; 2017-07-25)
PROC: 4A023N7 Measurement of Cardiac Sampling and Pressure, Left Heart, Percutaneous Approach (ICD-10-PCS; 2017-07-31)
PROC: B2111ZZ Fluoroscopy of Multiple Coronary Arteries using Low Osmolar Contrast (ICD-10-PCS; 2017-07-31)
DX: I21.4 Non-ST elevation (NSTEMI) myocardial infarction (principal); J96.01 Acute respiratory failure with hypoxia; J90 Pleural effusion, not elsewhere classified; I95.9 Hypotension, unspecified; E87.2 Acidosis; N17.9 Acute kidney failure, unspecified; E11.9 Type 2 diabetes mellitus without complications; I08.1 Rheumatic disorders of both mitral and tricuspid valves; I25.10 Atherosclerotic heart disease of native coronary artery without angina pectoris; R00.1 Bradycardia, unspecified; R11.10 Vomiting, unspecified; I10 Essential (primary) hypertension; G89.4 Chronic pain syndrome; Z79.84 Long term (current) use of oral hypoglycemic drugs; I48.91 Unspecified atrial fibrillation; D64.9 Anemia, unspecified; F12.90 Cannabis use, unspecified, uncomplicated; E87.6 Hypokalemia
CPT/HCPCS: 31500; 36430; 36556; 36600; 70450; 71010; 71250; 71275; 74176; 76937; 80048; 80053; 80307; 81001; 82140; 82435; 82550; 82552; 82565; 82805; 82947; 82948; 83036; 83605; 83735; 83880; 84100; 84132; 84295; 84443; 84484; 84520; 85014; 85018; 85025; 85027; 85379; 85610; 85730; 86850; 86900; 86901; 86920; 87040; 87070; 87086; 87205; 87641; 93005; 93306; 93308; 93458; 93880; 93970; 93998; 94002; 94003; 94010; 94640; 94664; 96365; 96368; 96375; C1769; C1893; J0330; J0461; J1160; J1265; J1630; J1644; J1815; J1940; J2250; J2543; J3010; J3370; J3475; J3480; J7030; J7050; P9016; Q9967

== ENCOUNTER 2017-08-15 05:22 | Inpatient (IN) | payer MEDICARE, MEDICAID ==
[~2017-08-15] VITALS: Ht 172.7 cm; Wt 71.2 kg
[2017-08-15] VITALS (11 sets, daily range): BP systolic 101–148; BP diastolic 52–63; PULSE 78–105; RESP 18; TEMP 97.9–98.8; O2SAT 98–100
[~2017-08-15 05:22] MED LIST changes: +ASPI-99 PO; +ATOR40TA16 PO; +FAMO20TA2 PO; +IPRASOL INH; +METO-309 PO; +NOVOLOGP2 SQ; +PERC7.5T13 PO; -PROM25SU8 PO; +QUET1TAB7 PO; +TORS5TAB2 PO
[2017-08-15] MEDS ORDERED: INSULIN HUMAN REGULAR 1,000 UNITS/10 ML VIAL SQ PRN ×2 (05:45)
[2017-08-15] MEDS ORDERED: SODIUM CHLORID 0.9% 500 ML IV PRN ×2 (05:45)
[2017-08-15] MEDS ORDERED: METOPROLOL TARTRATE 25 MG TAB PO PRN ×2 (05:45)
[2017-08-15] MEDS ORDERED: POVIDONE IODINE 5% (ANTISEPSIS KIT) 4 APPLICATIONS EACH NARE PRN ×2 (05:45)
[2017-08-15] MEDS ORDERED: LACTATED RINGER'S 1000 ML IV PRN ×2 (05:45)
[2017-08-15] MEDS ORDERED: CHLORHEXIDINE GLUCONATE 2 % 1 PACK (2 CLOTHS) TOPICAL PRN ×2 (05:45)
[2017-08-15] MEDS ORDERED: DEXTROSE 50% IN WATER 50 ML VIAL(D50) IV PUSH PRN ×2 (05:45→12:15)
[2017-08-15] MEDS ORDERED: METOPROLOL TARTRATE 25 MG TAB PO SCH ×2 (05:45)
[2017-08-15] MEDS ORDERED: CHLORHEXIDINE GLUCONATE 4% SOLN 120 ML BTL TOPICAL SCH ×2 (05:45)
[2017-08-15] MEDS ORDERED: ceFAZolin 2 GM PREMIX 50 ML IV SCH ×2 (05:45)
[2017-08-15] MEDS ORDERED: ONETAB26 PO ×2 (06:25)
[2017-08-15] MEDS ORDERED: NOVOLOGP2 SQ ×2 (06:25)
[2017-08-15] MEDS ORDERED: LANTUS2P SQ ×2 (06:25)
[2017-08-15] MEDS ORDERED: DOCU100C PO ×2 (06:25)
[2017-08-15] MEDS ORDERED: MIRA3350 PO ×2 (06:25)
[2017-08-15] MEDS ORDERED: methylPREDNISolone SOD SUCC 125 MG/2 ML VIAL ONE ×2 (06:33)
[2017-08-15] MEDS ORDERED: ceFAZolin 2 GM PREMIX 50 ML ONE ×2 (06:33)
[2017-08-15] MEDS ORDERED: VANCOMYCIN HCL 1000 MG VIAL ONE ×2 (06:33)
[2017-08-15] MEDS ORDERED: HEPARIN SODIUM - SQ 10,000 UNITS/ML VIAL ONE ×4 (06:33→07:12)
[2017-08-15] MEDS ORDERED: DEXMEDETOMIDINE HCL 200 MCG/2 ML VIAL ONE ×2 (06:56)
[2017-08-15] MEDS ORDERED: ACETAMINOPHEN 1000 MG/100 ML 100 ML IV ONE ×2 (06:56)
[2017-08-15] MEDS ORDERED: CARDIOPLEGIC IRR 2,000 ML ONE ×2 (07:11)
[2017-08-15] MEDS ORDERED: POTASSIUM CHLORIDE 40 MEQ/20 ML VIAL ONE ×2 (07:12)
[2017-08-15] MEDS ORDERED: HEPARIN SODIUM - IV 10,000 UNITS/10 ML VIAL ONE ×2 (07:12)
[2017-08-15] MEDS ORDERED: SODIUM BICARBONATE 8.4% INJ 50 ML ONE ×2 (07:13)
[2017-08-15] MEDS ORDERED: CALCIUM CHLORIDE 10% SOLN 1 GRAM/10 ML SYR ONE ×2 (07:13)
[2017-08-15] MEDS ORDERED: ALBUMIN 25% INJ 50 ML IV ONE ×2 (07:14)
[2017-08-15] MEDS ORDERED: MANNITOL INJ 100 ML ONE ×2 (07:14)
[2017-08-15 07:18] LABS: PROTHROMBIN TIME - PATIENT 10.8 SEC (9.8-11.6)
[2017-08-15 07:24] LABS: ALBUMIN 3.5 GM/DL (3.4-5.0); ALT (GPT) 65 U/L (12-78); AST (GOT) 36 U/L (15-37); CALCIUM 9.1 MG/DL (8.5-10.1); CHLORIDE 107 MEQ/L (98-107); CREATININE 1.24 MG/DL (0.60-1.30); GLOMERULAR FILTRATION RATE 72 ML/MIN (>89); GLUCOSE,RANDOM 129 MG/DL (74-106); SODIUM (NA) 141 MEQ/L (136-145)
[2017-08-15 07:25] LABS: BLOOD UREA NITROGEN 23 MG/DL (7-18); TOTAL BILIRUBIN ADULT 0.2 MG/DL (0.2-1.0); TOTAL PROTEIN 7.5 GM/DL (6.4-8.2)
[2017-08-15 07:26] LABS: ALKALINE PHOSPHATASE 86 U/L (45-117)
[2017-08-15] MEDS ORDERED: CEFAZOLIN 500 MG in NS IRR BTL 500 ML IRRIGATION SCH ×4 (07:30)
[2017-08-15] MEDS ORDERED: INSULIN REGULAR 100 UNITS in NS 100 ML IV PRN ×4 (07:30)
[2017-08-15] MEDS ORDERED: PAPAVERINE 60 MG-NITROGLYCERIN 100 MCG-DILTIAZEM 100 MG in NS 100 ML IRRIGATION SCH ×8 (07:30)
[2017-08-15] MEDS ORDERED: LACTATED RINGER'S 1000 ML INJ 500 ML IV PRN ×2 (12:07)
[2017-08-15] MEDS ORDERED: ceFAZolin INJ 1,000 MG VIAL ONE ×2 (12:08)
[2017-08-15] MEDS ORDERED: DEXMEDETOMIDINE INJ 200 MCG in SODIUM CHLORIDE 0.9% INJ 50 ML IV PRN ×4 (12:15)
[2017-08-15] MEDS ORDERED: Post-op Orders (for Pharmacy) MISC OTHER ONE ×2 (12:15)
[2017-08-15] MEDS ORDERED: RESP: ALBUTEROL 2.5 MG/IPRATROPIUM 0.5 MG NEB (PRN) NEB ×6 (12:15→15:45)
[2017-08-15] MEDS ORDERED: ACETAMINOPHEN 325 MG TAB PO PRN ×2 (12:15)
[2017-08-15] MEDS ORDERED: CALCIUM CHLORIDE 10% 1 GRAM/10 ML VIAL IV PUSH PRN ×2 (12:15)
[2017-08-15] MEDS ORDERED: CALCIUM CHLORIDE INJ 1 GM in SODIUM CHLORIDE 0.9% INJ 100 ML IV PRN ×4 (12:15)
[2017-08-15] MEDS ORDERED: NITROGLYCERIN-D5W 50 MG/250 ML 250 ML IV PRN ×2 (12:15)
[2017-08-15] MEDS ORDERED: ACETAMINOPHEN 650 MG SUPP RECTAL PRN ×2 (12:15)
[2017-08-15] MEDS ORDERED: CLEVIDIPINE INJ 50 ML IV PRN ×2 (12:15)
[2017-08-15] MEDS ORDERED: RESP: RACEPINEPHRINE 2.25% 0.5 ML NEB NEB PRN ×4 (12:15→14:45)
[2017-08-15] MEDS ORDERED: SODIUM BICARBONATE 8.4% SOLN 50 MEQ/50 ML VIAL IV PUSH PRN ×4 (12:15)
[2017-08-15] MEDS ORDERED: hydrALAZINE HCL 20 MG/ML VIAL IV PUSH PRN ×2 (12:15)
[2017-08-15] MEDS ORDERED: DOCUSATE SODIUM 100 MG CAP PO PRN ×2 (12:15)
[2017-08-15] MEDS ORDERED: METOPROLOL TARTRATE 5 MG/5 ML VIAL IV PUSH PRN ×2 (12:15)
[2017-08-15] MEDS ORDERED: MAGNESIUM SULFATE INJ 2 GM in SODIUM CHLORIDE 0.9% INJ 100 ML IV PRN ×8 (12:15)
[2017-08-15] MEDS ORDERED: POTASSIUM CHLOR 20 MEQ PREMIX 100 ML IV PRN ×6 (12:15)
[2017-08-15] MEDS ORDERED: POTASSIUM CHLORIDE 20 MEQ CONTROLLED RELEASE TAB PO PRN ×4 (12:15)
[2017-08-15] MEDS ORDERED: ALBUMIN 5% INJ 250 ML IV PRN ×2 (12:15)
--- NOTE | 2017-08-15 12:20 | PD.OP ---
cc: Mayte Bruner MD; Ahmet Krishnan MD Operative Report Date of Surgery: Aug 15, 2017 Preoperative Diagnosis: (1) CAD (coronary artery disease) (2) NSTEMI (non-ST elevated myocardial infarction) Postoperative Diagnosis: same Procedure: CABG x 3 MARINELLI to LAD - fair RICARDO to RCA - good SVG to OM1 - fair EVH MARK Anesthesia: Dr. Mari Surgeon: Mayte Bruner Gallery Assistant(s): ANITRA Correa Operation and Findings: The risks, benefits, complications, treatment options, and expected outcomes were discussed with the patient. The possibilities of reaction to medication, pulmonary aspiration, perforation of viscus, bleeding, recurrent infection, the need for additional procedures, failure to diagnose a condition, and creating a complication requiring transfusion or operation were discussed with the patient. The patient concurred with the proposed plan, giving informed consent. The site of surgery properly noted/marked. The patient was taken to Operating Room, identified as Matt Ely and the procedure verified as CABG, EVH, MARK. A Time Out was held and the above information confirmed. Standard monitoring lines and Naqvi catheter were placed. General anesthesia was induced. The patient was prepped and draped in a sterile fashion. A median sternotomy was performed and electrocautery was used to obtain hemostasis. The left and right internal mammary arteries were procured as pedicles from the 7th rib to the 1st rib in the usual manner. Simultaneously left greater saphenous vein was procured from the left leg using a minimally invasive endoscopic technique. The vein was known to be small based on the preoperative ultrasound. The vein was prepared for anastomosis and the leg wound was irrigated and closed in 2 layers. The pericardium was opened and a pericardial sling was created using interrupted 0 silk sutures. The patient was heparinized for cardiopulmonary bypass and the distal mammary pedicle was instrumented for anastomosis. The heart was instrumented for cardiopulmonary bypass in the usual manner. Antegrade blood cardioplegia was employed. The patient was placed on cardiopulmonary bypass. An aortic cross-clamp was applied and the heart was arrested using cold blood cardioplegia. Antegrade cardioplegia was administered after he each anastomosis. After adequate arrest, the 1st circumflex marginal artery was opened with a [place] blade and found to be a 1 millimeter fair target. Saphenous vein was approximated to the OM1 artery using a running 7 0 Prolene suture. The graft was measured for length and orientation and was suspended from the pericardium. The distal LAD was opened with a [place] blade and found to be a 1 millimeter fair target. The left internal mammary artery was approximated to the LAD using a running 7 0 Prolene suture. The pedicle was attached to the epicardium using interrupted 5 0 silk suture. The distal right coronary circulation was investigated and the distal RCA was opened with a [place] blade and found to be a 1.5 millimeter good target. The RICARDO was approximated to the RCA artery using a running 7 0 Prolene suture. The pedicle was tacked to the epicardium using interrupted 5-0 silk suture. The patient was systemically rewarmed and received a hotshot dose of warm blood cardioplegia. The aorta was vented and the proximal anastomosis to the OM1 graft was accomplished using a running 5 0 Prolene suture after creating an aortotomy was a 5 millimeter punch. The cross -clamp was removed and all proximal and distal anastomoses were examined for hemostasis. The patient was weaned from cardiopulmonary bypass. Protamine was given. There was no adverse reaction. Decannulation was carried out without incident. Wound was checked for hemostasis which was obtained using electrocautery. A 36 Greek mediastinal and 32 Greek left pleural chest tubes were placed and secured to the skin with 0 silk suture. The sternum was closed with stainless steel wire. The fascia was closed with 1. PDS. The subcutaneous tissue was closed using a running 2-0 Vicryl suture. The skin was closed with 4- 0 Monocryl. Sterile dressings were placed. At the end of the operation, all sponge, instruments, and needle counts were correct. The patient was transferred to the CVICU in stable condition. Findings: Most of the saphenous vein was not suitable for grafting XC: 57 min CPB: 65 min Drains: mediastinal x 1 pleural x 1 Complications: none Disposition: to CVICU in stable condition Mayte Bruner MD Aug 15, 2017 12:20
[2017-08-15] MEDS ORDERED: INSULIN REGULAR (IV INFUSION) 100 UNITS in SODIUM CHLORIDE 0.9% INJ 99 ML IV PRN ×4 (13:00)
[2017-08-15] MEDS: QUEtiapine FUMARATE 25 MG TAB PO SCH ×4 (14:00→23:04)
--- NOTE | 2017-08-15 14:46 | RADRPT ---
EXAM DATE/TIME: 08/15/2017 12:52 [facility] COMPARISON: CHEST SINGLE AP, July 27, 2017, 12:48. INDICATIONS : Post CABG. MEDICAL HISTORY : None. Hypertension. Diabetes. MRSA. SURGICAL HISTORY : Right toe amputation. I&D, left arm. ENCOUNTER: Initial ACUITY: 1 day PAIN SCORE: Non-responsive. LOCATION: Bilateral chest FINDINGS: A left-sided chest tube and mediastinal drain are in good positions. No pneumothorax is noted. Medi an sternotomy wires are noted status post cardiac surgery. An endotracheal tube has its tip 3 cm abo ve the linette. A nasogastric tube has its tip at the gastroesophageal junction and the side port in the distal esophagus. A right internal jugular vascular sheath contains a central line in the right a trium. No pulmonary vascular congestion is noted. no focal pulmonary infiltrate is noted. CONCLUSION: 1. Multiple tubes and lines are in good positions. 2. No acute focal pulmonary infiltrate or pulmonary vascular congestion. Ok Crouch MD on August 15, 2017 at 14:01 Board Certified Radiologist. This report was verified electronically.
[2017-08-15] MEDS: AMIODARONE 200 MG TAB PO SCH ×4 (15:15→22:27)
[2017-08-15] MEDS: RESP: ALBUTEROL 2.5 MG/IPRATROPIUM 0.5 MG NEB (SCH) NEB ×4 (15:33→21:05)
[2017-08-15] MEDS ORDERED: RESP: ALBUTEROL 2.5 MG/IPRATROPIUM 0.5 MG NEB (SCH) NEB ×2 (16:00)
[2017-08-15] MEDS ORDERED: ONDANSETRON HCL 4 MG/2 ML VIAL IV PUSH PRN ×2 (16:00)
[2017-08-15] MEDS: ACETAMINOPHEN 1000 MG/100 ML 100 ML IV SCH ×4 (16:40→22:28)
[2017-08-15] MEDS ORDERED: ATORVASTATIN 40 MG TAB PO SCH ×2 (21:00)
[2017-08-15] MEDS: FAMOTIDINE 20 MG TAB PO SCH ×2 (22:26)
[2017-08-16] VITALS (15 sets, daily range): BP systolic 100–113; BP diastolic 47–63; PULSE 92–107; RESP 14–19; TEMP 98.2–101.3; O2SAT 99–100
[2017-08-16] MEDS: oxyCODONE/ACETAMINOPHEN 7.5 MG/325 MG TAB PO PRN ×6 (00:48→21:37)
[2017-08-16] MEDS: RESP: ALBUTEROL 2.5 MG/IPRATROPIUM 0.5 MG NEB (SCH) NEB ×6 (03:07→20:04)
[2017-08-16 04:42] LABS: HEMOGLOBIN 7.6 GM/DL (13.0-17.0); MEAN CELL VOLUME 92.5 FL (80.0-100.0); MEAN CORPUSCULAR HEMOGLOBIN 30.5 PG (27.0-34.0); MEAN PLATELET VOLUME 8.9 FL (7.0-11.0); PLATELET COUNT 116 TH/MM3 (150-450); RED BLOOD COUNT 2.48 MIL/MM3 (4.50-5.90); RED CELL DISTRIBUTION WIDTH 14.4 % (11.6-17.2); WHITE BLOOD COUNT 11.2 TH/MM3 (4.0-11.0)
[2017-08-16] MEDS: ACETAMINOPHEN 1000 MG/100 ML 100 ML IV SCH ×4 (04:49→10:07)
[2017-08-16 05:13] LABS: BICARBONATE 23.4 MEQ/L (21.0-32.0); CALCIUM 8.2 MG/DL (8.5-10.1); CREATININE 0.93 MG/DL (0.60-1.30); MAGNESIUM 1.9 MG/DL (1.5-2.5)
--- NOTE | 2017-08-16 05:55 | RADRPT ---
EXAM DATE/TIME: 08/16/2017 04:10 [facility] COMPARISON: CHEST SINGLE AP, August 15, 2017, 12:52. INDICATIONS : Short of breath. MEDICAL HISTORY : Hypertension. Diabetes. MRSA. SURGICAL HISTORY : CABG. ENCOUNTER: Subsequent ACUITY: 1 day PAIN SCORE: 0/10 LOCATION: Bilateral chest FINDINGS: The there has been interval extubation and removal of nasogastric tube. Right neck central line and t horacostomy tubes remain in place. There is minimal basilar parenchymal opacity post extubation. Card iac contours are stable and satisfactory. CONCLUSION: Interval extubation. Minimally diminished aeration in the lung bases. Gary Madera MD on August 16, 2017 at 5:54 Board Certified Radiologist. This report was verified electronically.
[2017-08-16] MEDS: PANTOPRAZOLE SOD 40 MG DELAYED RELEASE TAB PO SCH ×2 (06:14)
[2017-08-16] MEDS: AMIODARONE 200 MG TAB PO SCH ×6 (06:14→21:39)
[2017-08-16] MEDS: QUEtiapine FUMARATE 25 MG TAB PO SCH ×6 (06:14→21:39)
[2017-08-16] MEDS ORDERED: GLUCAGON 1 MG/ML VIAL OTHER PRN ×2 (07:45)
[2017-08-16] MEDS ORDERED: SOD PHOSPHATE/SOD BIPHOSPHATE (ADULT) ENEMA 133ML RECTAL PRN ×2 (07:45)
[2017-08-16] MEDS ORDERED: BISACODYL 10 MG SUPP RECTAL PRN ×2 (07:45)
[2017-08-16] MEDS ORDERED: DEXTROSE 50% IN WATER 50 ML VIAL(D50) IV PUSH PRN (07:45)
--- NOTE | 2017-08-16 07:49 | PD.CAR.PN ---
CVT Progress Note CVT: POD #: 1 Subjective/Hospital Course: s/p CABG x 3 c/o incisional pain Objective: Vital Signs Date Time Temp Pulse Resp B/P (MAP) Pulse Ox O2 Delivery O2 Flow Rate FiO2 08/16/17 05:20 18 08/16/17 03:00 101.3 101 18 112/49 (70) 99 08/16/17 03:00 102 08/16/17 01:50 18 08/15/17 23:20 105 08/15/17 23:00 98.8 105 18 148/63 (91) 100 08/15/17 21:06 99 Nasal Cannula 2.00 08/15/17 19:15 100 Nasal Cannula 2.00 08/15/17 19:15 18 08/15/17 19:00 96 08/15/17 19:00 97.9 96 18 101/52 (68) 98 08/15/17 17:13 98.6 08/15/17 15:25 99 Nasal Cannula 4.00 08/15/17 15:25 99 Nasal Cannula 4 08/15/17 15:00 89 08/15/17 14:20 Mechanical Ventilator 08/15/17 14:09 98 40 08/15/17 13:00 78 08/15/17 13:00 Mechanical Ventilator 40 08/15/17 13:00 40 08/15/17 12:56 98.6 08/15/17 12:49 99 40 Labs: Laboratory Tests Test 08/16/17 04:30 White Blood Count 11.2 TH/MM3 (4.0-11.0) Red Blood Count 2.48 MIL/MM3 (4.50-5.90) Hemoglobin 7.6 GM/DL (13.0-17.0) Hematocrit 23.0 % (39.0-51.0) Mean Corpuscular Volume 92.5 FL (80.0-100.0) Mean Corpuscular Hemoglobin 30.5 PG (27.0-34.0) Mean Corpuscular Hemoglobin Concent 33.0 % (32.0-36.0) Red Cell Distribution Width 14.4 % (11.6-17.2) Platelet Count 116 TH/MM3 (150-450) Mean Platelet Volume 8.9 FL (7.0-11.0) Blood Urea Nitrogen 18 MG/DL (7-18) Creatinine 0.93 MG/DL (0.60-1.30) Random Glucose 126 MG/DL (74-106) Calcium Level 8.2 MG/DL (8.5-10.1) Magnesium Level 1.9 MG/DL (1.5-2.5) Sodium Level 140 MEQ/L (136-145) Potassium Level 4.2 MEQ/L (3.5-5.1) Chloride Level 109 MEQ/L (98-107) Carbon Dioxide Level 23.4 MEQ/L (21.0-32.0) Anion Gap 8 MEQ/L (5-15) Estimat Glomerular Filtration Rate 100 ML/MIN (>89) Result Diagram: 08/16/1742908/16/17429 Imaging: Last 24 hours Impressions Chest X-Ray 08/16/17499 Signed Impressions: Service Date/Time: Wednesday, August 16, 2017 04:10 - CONCLUSION: Interval extubation. Minimally diminished aeration in the lung bases. Gary Madera MD Cardiovascular: RRR Telemetry: NSR Pulmonary: CTA GI/: NABS Incision: dry and intact CT: 210ml/12 hrs Plan: Transfer to stepdown Encourage ambulation Remove villarreal Advance diet Diurese Hold BB today secondary to low BP. Mayte Bruner MD Aug 16, 2017 07:49
[2017-08-16] MEDS ORDERED: MULTIVITAMINS/MINERALS THERAPEUTIC TAB PO SCH ×2 (09:00)
[2017-08-16] MEDS ORDERED: MULTIVITAMIN INJ 10 ML, THIAMINE INJ 500 MG, FOLIC ACID INJ 1 MG in SODIUM CHLORID 0.9%... IV SCH ×8 (09:00)
[2017-08-16] MEDS ORDERED: MULTIVITAMIN WITH MINERALS PO SCH ×2 (09:00)
[2017-08-16] MEDS ORDERED: INFLUENZA VIRUS VACCINE (QUADRIVALENT) 0.5 ML SYR IM ONE ×2 (09:00)
[2017-08-16] MEDS ORDERED: PNEUMOCOCCAL POLYVALENT INJ 25 MCG/0.5 ML SYR IM ONE ×2 (09:00)
[2017-08-16] MEDS ORDERED: PILL SPLITTER OTHER PRN ×2 (09:15)
[2017-08-16] MEDS: ASPIRIN EC 81 MG TABEC PO SCH ×2 (10:06)
[2017-08-16] MEDS: ATORVASTATIN 40 MG TAB PO SCH ×2 (10:06)
[2017-08-16] MEDS: FUROSEMIDE 40 MG/4 ML VIAL IV PUSH SCH ×4 (10:06→17:57)
[2017-08-16] MEDS: FAMOTIDINE 20 MG TAB PO SCH ×4 (10:07→21:37)
[2017-08-16] MEDS: MULTIVITAMINS/MINERALS THERAPEUTIC TAB PO SCH ×2 (10:07)
[2017-08-16] MEDS: MAGNESIUM HYDROXIDE SUSP 30 ML CUP PO SCH ×2 (10:07)
[2017-08-16] MEDS: METOPROLOL TARTRATE 25 MG TAB PO SCH ×4 (10:07→21:39)
[2017-08-16] MEDS: INSULIN ASPART SUPPLEMENTAL SCALE SQ SCH ×6 (14:09→22:25)
--- NOTE | 2017-08-16 15:26 | EKG ---
Date Performed: 08/16/2017 Time Performed: 05:29:50 PTAGE: 61 years EKG: Sinus tachycardia with PAC(s) Inferior infarct - age undetermined Diffuse T wave changes Ab normal ECG PREVIOUS TRACING : 07/27/2017 13.19 Compared to prior tracing no significant change DOCTOR: Sydnie Loera Interpretating Date/Time 08/16/2017 15:24:26
[2017-08-16] MEDS ORDERED: INSULIN DETEMIR 100 UNITS/ML VIAL SQ SCH ×2 (21:00)
[2017-08-16] MEDS: DOCUSATE SODIUM 100 MG CAP PO SCH ×2 (21:37)
[2017-08-16] MEDS: SENNOSIDES 8.6 MG TAB PO SCH ×2 (21:38)
[2017-08-17] VITALS (27 sets, daily range): BP systolic 93–117; BP diastolic 55–61; PULSE 84–104; RESP 16–18; TEMP 98–98.5; O2SAT 100
[2017-08-17] MEDS: INSULIN ASPART SUPPLEMENTAL SCALE SQ SCH ×4 (02:00→05:38)
[2017-08-17] MEDS: AMIODARONE 200 MG TAB PO SCH ×6 (05:25→21:20)
[2017-08-17] MEDS: PANTOPRAZOLE SOD 40 MG DELAYED RELEASE TAB PO SCH ×2 (05:25)
[2017-08-17] MEDS: QUEtiapine FUMARATE 25 MG TAB PO SCH ×6 (05:25→21:21)
[2017-08-17 06:11] LABS: AUTOMATED NEUTROPHIL # 8.3 TH/MM3 (1.8-7.7); BASOPHIL % 0.2 % (0.0-2.0); EOSINOPHIL % 0.3 % (0.0-4.0); HEMATOCRIT 21.7 % (39.0-51.0); HEMOGLOBIN 7.3 GM/DL (13.0-17.0); LYMPH % 11.4 % (9.0-44.0); LYMPHOCYTE # 1.2 TH/MM3 (1.0-4.8); MEAN CELL VOLUME 92.1 FL (80.0-100.0); MEAN CORPUSCULAR HEMOGLOBIN 31.1 PG (27.0-34.0); MEAN CORPUSCULAR HGB CONC 33.8 % (32.0-36.0); MEAN PLATELET VOLUME 9.5 FL (7.0-11.0); MONO % 10.6 % (0.0-8.0); MONOCYTE # 1.1 TH/MM3 (0-0.9); NEUT % 77.5 % (16.0-70.0); PLATELET COUNT 102 TH/MM3 (150-450); RED BLOOD COUNT 2.35 MIL/MM3 (4.50-5.90); RED CELL DISTRIBUTION WIDTH 14.5 % (11.6-17.2); WHITE BLOOD COUNT 10.7 TH/MM3 (4.0-11.0)
[2017-08-17 06:31] LABS: BICARBONATE 26.3 MEQ/L (21.0-32.0); CALCIUM 8.2 MG/DL (8.5-10.1); CREATININE 1.13 MG/DL (0.60-1.30); MAGNESIUM 2.4 MG/DL (1.5-2.5)
--- NOTE | 2017-08-17 07:58 | PD.CAR.PN ---
CVT Progress Note CVT: POD #: 2 Subjective/Hospital Course: s/p CABG x 3 c/o incisional pain 08/17/17 No complaints today, doing well Objective: Vital Signs Date Time Temp Pulse Resp B/P (MAP) Pulse Ox O2 Delivery O2 Flow Rate FiO2 08/17/17 06:00 98 08/17/17 05:00 96 08/17/17 04:09 96 08/17/17 03:00 98.4 97 16 113/61 (78) 100 08/17/17 03:00 98 08/17/17 02:00 94 08/17/17 01:00 98 08/17/17 00:00 94 08/16/17 23:00 92 08/16/17 23:00 98.6 96 16 100/57 (71) 99 08/16/17 22:37 18 08/16/17 22:00 104 08/16/17 21:00 106 08/16/17 20:08 100 08/16/17 20:00 106 08/16/17 19:00 98.2 107 18 113/63 (80) 100 08/16/17 19:00 98 08/16/17 18:00 103 08/16/17 17:00 98 08/16/17 16:33 18 08/16/17 16:00 105 08/16/17 15:00 95 08/16/17 15:00 99 18 105/59 (74) 100 08/16/17 14:00 100 08/16/17 13:06 98 08/16/17 12:00 99 19 104/60 (75) 100 Arterial Line Labs: Laboratory Tests Test 08/17/17 05:30 White Blood Count 10.7 TH/MM3 (4.0-11.0) Red Blood Count 2.35 MIL/MM3 (4.50-5.90) Hemoglobin 7.3 GM/DL (13.0-17.0) Hematocrit 21.7 % (39.0-51.0) Mean Corpuscular Volume 92.1 FL (80.0-100.0) Mean Corpuscular Hemoglobin 31.1 PG (27.0-34.0) Mean Corpuscular Hemoglobin Concent 33.8 % (32.0-36.0) Red Cell Distribution Width 14.5 % (11.6-17.2) Platelet Count 102 TH/MM3 (150-450) Mean Platelet Volume 9.5 FL (7.0-11.0) Neutrophils (%) (Auto) 77.5 % (16.0-70.0) Lymphocytes (%) (Auto) 11.4 % (9.0-44.0) Monocytes (%) (Auto) 10.6 % (0.0-8.0) Eosinophils (%) (Auto) 0.3 % (0.0-4.0) Basophils (%) (Auto) 0.2 % (0.0-2.0) Neutrophils # (Auto) 8.3 TH/MM3 (1.8-7.7) Lymphocytes # (Auto) 1.2 TH/MM3 (1.0-4.8) Monocytes # (Auto) 1.1 TH/MM3 (0-0.9) Eosinophils # (Auto) 0.0 TH/MM3 (0-0.4) Basophils # (Auto) 0.0 TH/MM3 (0-0.2) CBC Comment DIFF FINAL Differential Comment Blood Urea Nitrogen 18 MG/DL (7-18) Creatinine 1.13 MG/DL (0.60-1.30) Random Glucose 102 MG/DL (74-106) Calcium Level 8.2 MG/DL (8.5-10.1) Magnesium Level 2.4 MG/DL (1.5-2.5) Sodium Level 140 MEQ/L (136-145) Potassium Level 4.2 MEQ/L (3.5-5.1) Chloride Level 105 MEQ/L (98-107) Carbon Dioxide Level 26.3 MEQ/L (21.0-32.0) Anion Gap 9 MEQ/L (5-15) Estimat Glomerular Filtration Rate 80 ML/MIN (>89) Result Diagram: 08/17/1752908/17/17529 Cardiovascular: RRR Telemetry: NSR Pulmonary: CTA GI/: NABS, NT Incision: dry and intact CT: min output Plan: D/C chest tubes Anemic - denies dizziness, fatigue Encourage ambulation Stim BM continue ASA, statin, BB Diurese Possible D/C tomorrow to SNF Mayte Bruner MD Aug 17, 2017 07:58
[2017-08-17] MEDS: POLYETHYLENE GLYCOL 17 GM PKG PO SCH ×2 (09:23)
[2017-08-17] MEDS: MAGNESIUM HYDROXIDE SUSP 30 ML CUP PO SCH ×2 (09:23)
[2017-08-17] MEDS: DOCUSATE SODIUM 100 MG CAP PO SCH ×4 (09:24→21:20)
[2017-08-17] MEDS: ATORVASTATIN 40 MG TAB PO SCH ×2 (09:24)
[2017-08-17] MEDS: FAMOTIDINE 20 MG TAB PO SCH ×4 (09:24→21:21)
[2017-08-17] MEDS: METOPROLOL TARTRATE 25 MG TAB PO SCH ×4 (09:24→21:21)
[2017-08-17] MEDS: FUROSEMIDE 40 MG/4 ML VIAL IV PUSH SCH ×4 (09:24→17:18)
[2017-08-17] MEDS: MULTIVITAMINS/MINERALS THERAPEUTIC TAB PO SCH ×2 (09:24)
[2017-08-17] MEDS: ASPIRIN EC 81 MG TABEC PO SCH ×2 (09:25)
[2017-08-17] MEDS ORDERED: INSULIN ASPART SUPPLEMENTAL SCALE SQ SCH ×2 (12:00)
[2017-08-17] MEDS: oxyCODONE/ACETAMINOPHEN 7.5 MG/325 MG TAB PO PRN ×2 (12:17)
[2017-08-17] MEDS: LOW DOSE INSULIN NOVOLOG SUPPLEMENTAL SCALE SQ SCH ×6 (14:00→21:00)
[2017-08-17] MEDS ORDERED: DEXTROSE 50% IN WATER 50 ML VIAL(D50) IV PUSH PRN (14:15)
[2017-08-17] MEDS ORDERED: GLUCAGON 1 MG/ML VIAL OTHER PRN ×2 (14:15)
[2017-08-17] MEDS: SENNOSIDES 8.6 MG TAB PO SCH ×2 (21:20)
[2017-08-18] VITALS (29 sets, daily range): BP systolic 96–122; BP diastolic 55–70; PULSE 67–110; RESP 16–18; TEMP 97.5–98.3; O2SAT 98–100
[2017-08-18] MEDS: oxyCODONE/ACETAMINOPHEN 7.5 MG/325 MG TAB PO PRN ×4 (04:19→20:38)
[2017-08-18] MEDS: PANTOPRAZOLE SOD 40 MG DELAYED RELEASE TAB PO SCH ×2 (05:38)
[2017-08-18] MEDS: AMIODARONE 200 MG TAB PO SCH ×6 (05:38→21:43)
[2017-08-18] MEDS: QUEtiapine FUMARATE 25 MG TAB PO SCH ×6 (05:38→21:42)
[2017-08-18] MEDS: LOW DOSE INSULIN NOVOLOG SUPPLEMENTAL SCALE SQ SCH ×8 (08:00→21:00)
[2017-08-18] MEDS ORDERED: AMIO200T PO ×2 (08:20)
[2017-08-18] MEDS ORDERED: METO25TA3 PO ×2 (08:20)
--- NOTE | 2017-08-18 08:27 | HHI.DS ---
Discharge Summary Admission Date Aug 15, 2017 at 05:22 Discharge Date: Aug 18, 2017 Admitting Diagnosis CAD Recent NSTEMI (1) HTN (hypertension) Diagnosis: Secondary ICD Codes: I10 - Essential (primary) hypertension (2) Diabetes mellitus Diagnosis: Secondary ICD Codes: E11.9 - Type 2 diabetes mellitus without complications (3) NSTEMI (non-ST elevated myocardial infarction) Diagnosis: Principal ICD Codes: I21.4 - Non-ST elevation (NSTEMI) myocardial infarction (4) CAD (coronary artery disease) Diagnosis: Principal ICD Codes: I25.10 - Atherosclerotic heart disease of [place] coronary artery without angina pectoris Procedures CABG Brief History 61y/o male recntly admitted with NSTEMI. He underwent LHC and was found to have multivessel CAD. He was discharged and returned for CABG. He has done well postop with no perioperative complications. He is anemic, but denies any symptoms attributable to this issue. He will be transferred back to the SNF where he resides. CBC/BMP: 08/17/17 0530 08/17/17 0530 Significant Findings Laboratory Tests Test 08/16/17 04:30 08/17/17 05:30 White Blood Count 11.2 TH/MM3 (4.0-11.0) Red Blood Count 2.48 MIL/MM3 (4.50-5.90) 2.35 MIL/MM3 (4.50-5.90) Hemoglobin 7.6 GM/DL (13.0-17.0) 7.3 GM/DL (13.0-17.0) Hematocrit 23.0 % (39.0-51.0) 21.7 % (39.0-51.0) Platelet Count 116 TH/MM3 (150-450) 102 TH/MM3 (150-450) Random Glucose 126 MG/DL (74-106) Calcium Level 8.2 MG/DL (8.5-10.1) 8.2 MG/DL (8.5-10.1) Chloride Level 109 MEQ/L (98-107) Neutrophils (%) (Auto) 77.5 % (16.0-70.0) Monocytes (%) (Auto) 10.6 % (0.0-8.0) Neutrophils # (Auto) 8.3 TH/MM3 (1.8-7.7) Monocytes # (Auto) 1.1 TH/MM3 (0-0.9) Estimat Glomerular Filtration Rate 80 ML/MIN (>89) Imaging Last Impressions Chest X-Ray 08/16/17 0500 Signed Impressions: Service Date/Time: Wednesday, August 16, 2017 04:10 - CONCLUSION: Interval extubation. Minimally diminished aeration in the lung bases. Gary Madera MD PE at Discharge chest - CTA COR - RRR ABD - soft, NT, NABS wound - dry and intact Hospital Course As above. He underwent CABG 3 days ago and has done well postoperatively. He should remain on a diabetic diet and will be transferred back to the SNF where he lives. Pt Condition on Discharge: Good Discharge Disposition: Discharge to SNF Discharge Instructions DIET: Follow Instructions for: Heart Healthy Diet Activities you can perform: Weight Bearing as Rafael, Shower Only-No Bath Activities to avoid: Lifting/Bending, Strenuous Activity, Driving Follow up Referrals: Cardiology - 1 Month with Ahmet Krishnan MD PCP Follow-up - 2 Weeks with Daniella Noyola MD Surgical with Mayte Bruner MD New Orders: BASIC METABOLIC PROF - 2 Weeks CBC WITH DIFF - 2 Weeks X-RAY CHEST PA & LAT - 2 Weeks New Medications: Amiodarone (Amiodarone) 200 Mg Tab 200 MG PO Q12HR for Regulate Heart Beat, #28 TAB Metoprolol Tartrate (Metoprolol Tartrate) 25 Mg Tab 25 MG PO BID for Blood Pressure Management, #60 TAB 3 Refills Continued Medications: Aspirin DR (Adult Aspirin EC Low Strength) 81 Mg Tabec 81 MG PO DAILY for Blood Clot Prevention, #30 TAB Atorvastatin (Atorvastatin) 40 Mg Tab 40 MG PO HS for Cholesterol Management, #30 TAB Docusate Sodium (Docusate Sodium) 100 Mg Cap 100 MG PO HS PRN for CONSTIPATION, #60 CAP 0 Refills Famotidine (Famotidine) 20 Mg Tab 20 MG PO BID for Reflux, #60 TAB 0 Refills Insulin Aspart Inj (Novolog Inj) 1,000 Unit/10 Ml Vial 0 SQ DIRECTED for Blood Sugar Management, #10 ML 0 Refills Sliding Scale as directed. Insulin Glargine Inj (Lantus Inj) 1,000 Unit/10 Ml Vial 5 UNITS SQ HS for Blood Sugar Management, VIAL 0 Refills Ipratropium-Albuterol Neb (Duoneb) 0.5-2.5 Mg/3 Ml Neb 1 AMPULE INH Q2HR NEB PRN for WHEEZING for 30 Days, ML Multivitamin with Minerals (One Daily Complete) 1 Each Tablet 1 TAB PO DAILY Oxycodone-Acetaminophen (Percocet) 7.5-325 mg Tab 1 TAB PO Q6H PRN for PAIN for 3 Days, #12 TAB 0 Refills Polyethylene Glycol 3350 Powder (Miralax Powder) 17 Gm Powd 17 GM PO DAILY for Constipation, #1 CAN 0 Refills Mix and dissolve one measuring cap-ful (17 grams) in water or juice. Quetiapine (Quetiapine) 25 Mg Tab 25 MG PO Q8HR for Anxiety and/or Insomnia, #30 TAB Discontinued Medications: Metoprolol Tartrate (Lopressor) 50 Mg Tab 50 MG PO Q8HR for Heart for 30 Days, TAB Mayte Bruner MD Aug 18, 2017 08:27
[2017-08-18] MEDS: FAMOTIDINE 20 MG TAB PO SCH ×4 (08:53→21:42)
[2017-08-18] MEDS: MAGNESIUM HYDROXIDE SUSP 30 ML CUP PO SCH ×2 (08:53)
[2017-08-18] MEDS: ATORVASTATIN 40 MG TAB PO SCH ×2 (08:53)
[2017-08-18] MEDS: METOPROLOL TARTRATE 25 MG TAB PO SCH ×4 (08:53→21:44)
[2017-08-18] MEDS: ASPIRIN EC 81 MG TABEC PO SCH ×2 (08:53)
[2017-08-18] MEDS: DOCUSATE SODIUM 100 MG CAP PO SCH ×4 (08:53→21:43)
[2017-08-18] MEDS: POLYETHYLENE GLYCOL 17 GM PKG PO SCH ×2 (08:53)
[2017-08-18] MEDS: MULTIVITAMINS/MINERALS THERAPEUTIC TAB PO SCH ×2 (08:53)
[2017-08-18] MEDS: FUROSEMIDE 40 MG/4 ML VIAL IV PUSH SCH ×4 (08:54→18:02)
[2017-08-18] MEDS: SENNOSIDES 8.6 MG TAB PO SCH ×2 (21:43)
[2017-08-19] VITALS (15 sets, daily range): BP systolic 97–117; BP diastolic 56–61; PULSE 78–97; RESP 16–18; TEMP 98.4–98.5; O2SAT 98–100
[2017-08-19] MEDS: QUEtiapine FUMARATE 25 MG TAB PO SCH ×2 (05:38)
[2017-08-19] MEDS: PANTOPRAZOLE SOD 40 MG DELAYED RELEASE TAB PO SCH ×2 (05:38)
[2017-08-19] MEDS: AMIODARONE 200 MG TAB PO SCH ×4 (05:38→12:34)
[2017-08-19] MEDS: POLYETHYLENE GLYCOL 17 GM PKG PO SCH ×2 (08:18)
[2017-08-19] MEDS: MAGNESIUM HYDROXIDE SUSP 30 ML CUP PO SCH ×2 (08:19)
[2017-08-19] MEDS: MULTIVITAMINS/MINERALS THERAPEUTIC TAB PO SCH ×2 (08:19)
[2017-08-19] MEDS: METOPROLOL TARTRATE 25 MG TAB PO SCH ×2 (08:19)
[2017-08-19] MEDS: FAMOTIDINE 20 MG TAB PO SCH ×2 (08:20)
[2017-08-19] MEDS: FUROSEMIDE 40 MG/4 ML VIAL IV PUSH SCH ×2 (08:20)
[2017-08-19] MEDS: ATORVASTATIN 40 MG TAB PO SCH ×2 (08:20)
[2017-08-19] MEDS: ASPIRIN EC 81 MG TABEC PO SCH ×2 (08:20)
[2017-08-19] MEDS: DOCUSATE SODIUM 100 MG CAP PO SCH ×2 (08:20)
[2017-08-19] MEDS: LOW DOSE INSULIN NOVOLOG SUPPLEMENTAL SCALE SQ SCH ×4 (08:23→12:31)
--- NOTE | 2017-08-19 09:12 | PD.CAR.PN ---
CVT Progress Note Subjective/Hospital Course: s/p CABG x 3 c/o incisional pain 08/17/17 No complaints today, doing well 08/19 D/C SNF today Objective: Vital Signs Date Time Temp Pulse Resp B/P (MAP) Pulse Ox O2 Delivery O2 Flow Rate FiO2 08/19/17 08:00 89 08/19/17 08:00 98.4 89 16 117/61 (79) 98 08/19/17 06:20 86 08/19/17 05:12 82 08/19/17 04:00 78 08/19/17 03:05 98.5 84 18 97/56 (70) 100 08/19/17 03:00 83 08/19/17 02:23 80 08/19/17 01:00 82 08/19/17 00:00 84 08/18/17 23:05 86 08/18/17 23:05 98.2 87 16 101/55 (70) 99 08/18/17 22:00 92 08/18/17 21:00 98 08/18/17 20:00 110 08/18/17 19:50 94 08/18/17 19:20 98.1 107 18 122/70 (87) 99 08/18/17 18:00 94 08/18/17 17:26 99 21 08/18/17 17:00 90 08/18/17 16:00 86 08/18/17 15:26 97.8 89 16 105/57 (73) 100 08/18/17 15:00 90 08/18/17 14:00 90 08/18/17 13:00 85 08/18/17 12:00 89 08/18/17 11:15 97.5 86 16 96/55 (69) 100 08/18/17 11:00 85 08/18/17 10:27 98 08/18/17 10:00 86 Result Diagram: 08/17/1730 08/17/1730 Robert Enrique MD Aug 19, 2017 09:12
[2017-08-19 10:33] LABS: HEMATOCRIT 21.1 % (39.0-51.0); HEMOGLOBIN 7.1 GM/DL (13.0-17.0); MEAN CELL VOLUME 91.9 FL (80.0-100.0); MEAN CORPUSCULAR HEMOGLOBIN 30.9 PG (27.0-34.0); MEAN CORPUSCULAR HGB CONC 33.6 % (32.0-36.0); MEAN PLATELET VOLUME 9.6 FL (7.0-11.0); PLATELET COUNT 143 TH/MM3 (150-450); RED BLOOD COUNT 2.29 MIL/MM3 (4.50-5.90); RED CELL DISTRIBUTION WIDTH 14.6 % (11.6-17.2); WHITE BLOOD COUNT 8.3 TH/MM3 (4.0-11.0)
[2017-08-19 11:07] LABS: BICARBONATE 31.2 MEQ/L (21.0-32.0); CALCIUM 8.9 MG/DL (8.5-10.1); CREATININE 1.34 MG/DL (0.60-1.30)
== END 2017-08-19 12:30 | DRG 236 ==
LOC: HSDI 05:22 → HCVI 13:00 → HCPC 08-16 12:32
PROVIDERS: ADMIT Thoracic Surgery (Cardiothoracic Vascular Surgery); ATTEND Thoracic Surgery (Cardiothoracic Vascular Surgery)
PROC: 5A1221Z Performance of Cardiac Output, Continuous (ICD-10-PCS; 2017-08-15)
PROC: B245ZZ4 Ultrasonography of Left Heart, Transesophageal (ICD-10-PCS; 2017-08-15)
PROC: 021109W Bypass Coronary Artery, Two Arteries from Aorta with Autologous Venous Tissue, Open Approach (ICD-10-PCS; principal; 2017-08-15 07:30)
PROC: 02100Z9 Bypass Coronary Artery, One Artery from Left Internal Mammary, Open Approach (ICD-10-PCS; 2017-08-15 07:30)
DX: I21.4 Non-ST elevation (NSTEMI) myocardial infarction (principal); I10 Essential (primary) hypertension; E11.9 Type 2 diabetes mellitus without complications; D64.9 Anemia, unspecified; I25.2 Old myocardial infarction; I25.10 Atherosclerotic heart disease of native coronary artery without angina pectoris
CPT/HCPCS: 71010; 76937; 80048; 80053; 82948; 83735; 85014; 85025; 85027; 85610; 86850; 86900; 86901; 86920; 90686; 90732; 93005; 94002; 94150; 94640; 94664; 94667; 94668; J0131; J0690; J1644; J1815; J1940; J2150; J2440; J2930; J3010; J3370; J3475; J3480; J7120; P9045; P9047; Q2038

== ENCOUNTER 2017-08-24 13:59 | Observation (INO) | payer MEDICAID, MEDICARE ==
[2017-08-24] VITALS (9 sets, daily range): BP systolic 102–199; BP diastolic 58–78; PULSE 55–88; RESP 16–18; TEMP 98.4–98.6; O2SAT 96–100
[~2017-08-24 13:59] MED LIST changes: +AMIO200T PO; -ASPI-99 PO; +ASPI1TAB56 PO; +DOCU100C15 PO; +LANTUS2P SQ; -LANTUSP SQ; -METO-309 PO; +METO25TA3 PO; +MIRA3350 PO; +ONETAB26 PO; -PROM1SUP12 PR; -TORS5TAB2 PO
--- NOTE | 2017-08-24 16:06 | PD ---
HPI Chief Complaint: Abnormal Results Time Seen by Provider: 15:56 Travel History International Travel<30 days: No Contact w/Intl Traveler<30days: No Traveled to known affect area: No History of Present Illness HPI Patient is a 61 year old male who was sent to the ED from [facility] for Hgb of 6.6. Patient is in rehab s/p CABG on 08/17/17. He has chest pressure that has been stable since surgery. Patient denies any shortness of breath, headache, lightheadedness, dizziness, chest pain, abdominal pain, bleeding, or rashes. No urinary symptoms or bowel changes. Patient states that he does not look at his stool so is unsure if there is blood present. Modifying Factors: None Associated Signs & Symptoms: Low hemoglobin Risk Factors: Recent CABG, CAD PFSH Past Medical History Arthritis: Yes Blood Disorders: No Anxiety: No Depression: No Cancer: No Cardiovascular Problems: Yes Diabetes: Yes Diminished Hearing: No Endocrine: Yes Genitourinary: No Immune Disorder: No Musculoskeletal: No Neurologic: No Psychiatric: No Reproductive: No Respiratory: No Integumentary: Yes (recent MRSA with IV antibiotics) Immunizations Current: No Past Surgical History Other Surgery: Yes (RIGHT BIG TOE AMPUTATED) Social History Alcohol Use: Yes (OCC) Tobacco Use: No Substance Use: No Allergies-Medications (Allergen,Severity, Reaction): Coded Allergies: No Known Allergies (Verified , 07/20/17) Reported Meds & Prescriptions Reported Meds & Active Scripts Active Metoprolol Tartrate 25 Mg Tab 25 Mg PO BID Amiodarone (Amiodarone HCl) 200 Mg Tab 200 Mg PO Q12HR Percocet (Oxycodone-Acetaminophen) 7.5-325 mg Tab 1 Tab PO Q6H PRN 3 Days Famotidine 20 Mg Tab 20 Mg PO BID Quetiapine (Quetiapine Fumarate) 25 Mg Tab 25 Mg PO Q8HR Adult Aspirin EC Low Strength (Aspirin) 81 Mg Tabec 81 Mg PO DAILY Atorvastatin (Atorvastatin Calcium) 40 Mg Tab 40 Mg PO HS Duoneb (Ipratropium-Albuterol Neb) 0.5-2.5 Mg/3 Ml Neb 1 Ampule INH Q2HR NEB PRN 30 Days Reported One Daily Complete (Multivitamin with Minerals) 1 Each Tablet 1 Tab PO DAILY Miralax Powder (Polyethylene Glycol 3350 Powder) 17 Gm Powd 17 Gm PO DAILY Mix and dissolve one measuring cap-ful (17 grams) in water or juice. Lantus Inj (Insulin Glargine) 1,000 Unit/10 Ml Vial 5 Units SQ HS Novolog Inj (Insulin Aspart) 1,000 Unit/10 Ml Vial 0 SQ DIRECTED Sliding Scale as directed. Docusate Sodium 100 Mg Cap 100 Mg PO HS PRN Review of Systems Except as stated in HPI: all other systems reviewed are Neg Physical Exam Narrative GENERAL: Well-developed elderly male patient, well-nourished. Awake. Alert. Lying comfortably. In no acute distress. SKIN: Warm and dry. HEAD: Atraumatic. Normocephalic. EYES: Pupils equal and round. No scleral icterus. No injection or drainage. ENT: No nasal bleeding or discharge. Mucous membranes pink and moist. NECK: Trachea midline. No JVD. CARDIOVASCULAR: Regular rate and rhythm. Dressing over sternum. RESPIRATORY: No accessory muscle use. Clear to auscultation. Breath sounds equal bilaterally. GASTROINTESTINAL: Abdomen soft, non-tender, nondistended. Hepatic and splenic margins not palpable. MUSCULOSKELETAL: Extremities without clubbing, cyanosis, or edema. No obvious deformities. RECTAL EXAM: No masses or tenderness, stool is brown. Hemoccult negative. NEUROLOGICAL: Awake and alert. No obvious cranial nerve deficits. Motor grossly within normal limits. Normal speech. PSYCHIATRIC: Appropriate mood and affect; insight and judgment normal. Data Data Last Documented VS Vital Signs Date Time Temp Pulse Resp B/P (MAP) Pulse Ox O2 Delivery O2 Flow Rate FiO2 08/24/17 15:35 98.4 85 16 102/78 (86) 98 Orders Orders Complete Blood Count With Diff (08/24/17 15:42) Basic Metabolic Panel (Bmp) (08/24/17 15:42) Prothrombin Time / Inr (Pt) (08/24/17 15:42) Act Partial Throm Time (Ptt) (08/24/17 15:42) Type And Screen (08/24/17 15:42) Red Blood Cells (Rbc) (08/24/17 17:19) Blood Product Administration (08/24/17 17:19) Sodium Chlor 0.9% 250 Ml Inj (Ns 250 Ml (08/24/17 17:30) Labs Laboratory Tests Test 08/24/17 16:20 White Blood Count 10.1 TH/MM3 Red Blood Count 2.32 MIL/MM3 Hemoglobin 7.1 GM/DL Hematocrit 21.8 % Mean Corpuscular Volume 93.8 FL Mean Corpuscular Hemoglobin 30.3 PG Mean Corpuscular Hemoglobin Concent 32.3 % Red Cell Distribution Width 14.8 % Platelet Count 326 TH/MM3 Mean Platelet Volume 8.0 FL Neutrophils (%) (Auto) 78.0 % Lymphocytes (%) (Auto) 13.1 % Monocytes (%) (Auto) 6.6 % Eosinophils (%) (Auto) 1.6 % Basophils (%) (Auto) 0.7 % Neutrophils # (Auto) 7.9 TH/MM3 Lymphocytes # (Auto) 1.3 TH/MM3 Monocytes # (Auto) 0.7 TH/MM3 Eosinophils # (Auto) 0.2 TH/MM3 Basophils # (Auto) 0.1 TH/MM3 CBC Comment DIFF FINAL Differential Comment Prothrombin Time 10.0 SEC Prothromb Time International Ratio 0.9 RATIO Activated Partial Thromboplast Time 28.3 SEC Blood Urea Nitrogen 17 MG/DL Creatinine 1.38 MG/DL Random Glucose 392 MG/DL Calcium Level 8.4 MG/DL Sodium Level 135 MEQ/L Potassium Level 4.3 MEQ/L Chloride Level 102 MEQ/L Carbon Dioxide Level 27.2 MEQ/L Anion Gap 6 MEQ/L Estimat Glomerular Filtration Rate 63 ML/MIN [facility] Medical Decision Making Medical Screen Exam Complete: Yes Emergency Medical Condition: Yes Medical Record Reviewed: Yes Interpretation(s) Laboratory Tests Test 08/24/17 16:20 Red Blood Count 2.32 MIL/MM3 (4.50-5.90) Hemoglobin 7.1 GM/DL (13.0-17.0) Hematocrit 21.8 % (39.0-51.0) Neutrophils (%) (Auto) 78.0 % (16.0-70.0) Neutrophils # (Auto) 7.9 TH/MM3 (1.8-7.7) Creatinine 1.38 MG/DL (0.60-1.30) Random Glucose 392 MG/DL (74-106) Calcium Level 8.4 MG/DL (8.5-10.1) Sodium Level 135 MEQ/L (136-145) Estimat Glomerular Filtration Rate 63 ML/MIN (>89) Differential Diagnosis Low hemoglobin/symptomatic anemia Narrative Course Lab work shows hemoglobin of 7. 2 units of blood were ordered for the patient for further treatment. Case was discussed with Dr. Harry for admission as an observation for treatment. HemaPrompt Point of Care Internal Pos. & Neg. Controls: Passed Fecal Specimen Occult Blood: Negative Diagnosis Primary Impression: Symptomatic anemia Admitting Information Admitting Physician Requests: Admit Olga Huber MD Aug 24, 2017 16:06
[2017-08-24 17:00] LABS: AUTOMATED NEUTROPHIL # 7.9 TH/MM3 (1.8-7.7); BASOPHIL # 0.1 TH/MM3 (0-0.2); BASOPHIL % 0.7 % (0.0-2.0); EOSINOPHIL # 0.2 TH/MM3 (0-0.4); EOSINOPHIL % 1.6 % (0.0-4.0); HEMATOCRIT 21.8 % (39.0-51.0); HEMO FLAGS DIFF FINAL; LYMPH % 13.1 % (9.0-44.0); LYMPHOCYTE # 1.3 TH/MM3 (1.0-4.8); MEAN CELL VOLUME 93.8 FL (80.0-100.0); MEAN CORPUSCULAR HEMOGLOBIN 30.3 PG (27.0-34.0); MEAN CORPUSCULAR HGB CONC 32.3 % (32.0-36.0); MONO % 6.6 % (0.0-8.0); PLATELET COUNT 326 TH/MM3 (150-450); RED BLOOD COUNT 2.32 MIL/MM3 (4.50-5.90); RED CELL DISTRIBUTION WIDTH 14.8 % (11.6-17.2); WHITE BLOOD COUNT 10.1 TH/MM3 (4.0-11.0)
[2017-08-24 17:09] LABS: APTT (PATIENT) 28.3 SEC (24.3-30.1); INTERNATIONAL NORMALIZED RATIO 0.9 RATIO
[2017-08-24 17:13] LABS: BICARBONATE 27.2 MEQ/L (21.0-32.0); POTASSIUM 4.3 MEQ/L (3.5-5.1)
[2017-08-24] MEDS ORDERED: SODIUM CHLORIDE 0.9% FLUSH 10 ML FLUSH IV FLUSH PRN (17:30)
[2017-08-24] MEDS ORDERED: ONDANSETRON HCL 4 MG/2 ML VIAL IVP PRN (17:30)
[2017-08-24] MEDS ORDERED: NALOXONE HCL 0.4 MG/ML AMP IV PUSH PRN (17:30)
[2017-08-24] MEDS ORDERED: BISACODYL 10 MG SUPP RECTAL PRN (17:30)
[2017-08-24] MEDS ORDERED: SODIUM CHLOR 0.9% 250 ML INJ 250 ML IV ONE (17:30)
[2017-08-24] MEDS ORDERED: SENNOSIDES 8.6 MG TAB PO PRN (17:30)
[2017-08-24] MEDS ORDERED: MAGNESIUM HYDROXIDE SUSP 30 ML CUP PO PRN (17:30)
[2017-08-24] MEDS ORDERED: ACETAMINOPHEN 325 MG TAB PO PRN (17:30)
[2017-08-24] MEDS ORDERED: LACTULOSE SYRUP 20 GM/30 ML CUP PO PRN (17:30)
--- NOTE | 2017-08-24 17:30 | HHI.HP ---
HPI Service [facility] Primary Care Physician Daniella Noyola MD Admission Diagnosis Diagnoses: Chief Complaint: Abnormal Hemoglobin level. Travel History International Travel<30 Days: No Contact w/Intl Traveler <30 Da: No Traveled to Known Affected Are: No History of Present Illness This is a pleasant 61 y/o male who was sent to this facility from [facility] for Hgb of 6.6. Patient is in rehab s/p CABG on 08/17/17. He has chest pressure that has been stable since surgery. Patient denies any shortness of breath, headache, lightheadedness, dizziness, chest pain, abdominal pain, bleeding, or rashes. No urinary symptoms or bowel changes. Patient states that he does not look at his stool so is unsure if there is blood present. Stable in his bedroom in the presence of relative discussed with ER specialist will start transfusion of two units of PRBCs. has Assisted Closure device on his Precordial area. Review of Systems Constitutional: DENIES: Fever, Chills, Change in appetite Endocrine: DENIES: Heat/cold intolerance Eyes: DENIES: Blurred vision, Eye pain Except as stated in HPI: all other systems reviewed are Neg Past Family Social History Past Medical History OA DM II Recent MRSA infection on IV antibiotics CAD status post CABG Hyperlipidemia GERD Depression Past Surgical History Right big toe amputation CABG Reported Medications Reported Meds & Active Scripts Active Metoprolol Tartrate 25 Mg Tab 25 Mg PO BID Amiodarone (Amiodarone HCl) 200 Mg Tab 200 Mg PO Q12HR Percocet (Oxycodone-Acetaminophen) 7.5-325 mg Tab 1 Tab PO Q6H PRN 3 Days Famotidine 20 Mg Tab 20 Mg PO BID Quetiapine (Quetiapine Fumarate) 25 Mg Tab 25 Mg PO Q8HR Adult Aspirin EC Low Strength (Aspirin) 81 Mg Tabec 81 Mg PO DAILY Atorvastatin (Atorvastatin Calcium) 40 Mg Tab 40 Mg PO HS Duoneb (Ipratropium-Albuterol Neb) 0.5-2.5 Mg/3 Ml Neb 1 Ampule INH Q2HR NEB PRN 30 Days Reported One Daily Complete (Multivitamin with Minerals) 1 Each Tablet 1 Tab PO DAILY Miralax Powder (Polyethylene Glycol 3350 Powder) 17 Gm Powd 17 Gm PO DAILY Mix and dissolve one measuring cap-ful (17 grams) in water or juice. Lantus Inj (Insulin Glargine) 1,000 Unit/10 Ml Vial 5 Units SQ HS Novolog Inj (Insulin Aspart) 1,000 Unit/10 Ml Vial 0 SQ DIRECTED Sliding Scale as directed. Docusate Sodium 100 Mg Cap 100 Mg PO HS PRN Allergies: Coded Allergies: No Known Allergies (Verified , 07/20/17) Active Ordered Medications Current Medications Medications (Trade) Dose Ordered Sig/Omero Route Start Time Stop Time Status Last Admin Sodium Chloride 250 ml @ 15 mls/hr ONCE ONCE IV 08/24/17 17:30 08/25/17 10:09 (NS Flush) 2 ml UNSCH PRN IV FLUSH 08/24/17 17:30 UNV (NS Flush) 2 ml BID IV FLUSH 08/24/17 21:00 UNV (Tylenol) 650 mg Q4H PRN PO 08/24/17 17:30 UNV (Zofran Inj) 4 mg Q6H PRN IVP 08/24/17 17:30 UNV (Narcan Inj) 0.4 mg UNSCH PRN IV PUSH 08/24/17 17:30 UNV (Pema-Colace) 1 tab BID PO 08/24/17 21:00 UNV (Milk Of Magnesia Liq) 30 ml Q12H PRN PO 08/24/17 17:30 UNV (Senokot) 17.2 mg Q12H PRN PO 08/24/17 17:30 UNV (Dulcolax Supp) 10 mg DAILY PRN RECTAL 08/24/17 17:30 UNV (Lactulose Liq) 30 ml DAILY PRN PO 08/24/17 17:30 UNV (Cordarone) 200 mg Q12HR PO 08/24/17 21:00 UNV (Ecotrin Ec) 81 mg DAILY PO 08/25/17 09:00 UNV (Lipitor) 40 mg HS PO 08/24/17 21:00 UNV (Pepcid) 20 mg BID PO 08/24/17 21:00 UNV (Lopressor) 25 mg BID PO 08/24/17 21:00 UNV (Percocet 7.5-325 Mg) 1 tab Q6H PRN PO 08/24/17 17:45 UNV (SEROquel) 25 mg Q8HR PO 08/24/17 22:00 UNV (Duoneb Neb) 1 ampule Q6HR NEB NEB 08/24/17 22:00 UNV (Mucinex Er) 600 mg BID PO 08/24/17 21:00 UNV (NovoLOG SUPPLEMENTAL SCALE) 1 ACHS SLIDING SCALE SQ 08/24/17 21:00 UNV Family History Father with DM II Mother with DM II and CAD Social History Alcohol abuse Abuse Marijuana Occasionally. Physical Exam Vital Signs Vital Signs Date Time Temp Pulse Resp B/P (MAP) Pulse Ox O2 Delivery O2 Flow Rate FiO2 08/24/17 15:35 98.4 85 16 102/78 (86) 98 Physical Exam GENERAL: Well-developed elderly male patient, well-nourished. Awake. Alert. Lying comfortably. In no acute distress. SKIN: Warm and dry. HEAD: Atraumatic. Normocephalic. EYES: Pupils equal and round. No scleral icterus. No injection or drainage. ENT: No nasal bleeding or discharge. Mucous membranes pink and moist. NECK: Trachea midline. No JVD. CARDIOVASCULAR: Regular rate and rhythm. Dressing over sternum. RESPIRATORY: No accessory muscle use. Clear to auscultation. Breath sounds equal bilaterally. GASTROINTESTINAL: Abdomen soft, non-tender, nondistended. Hepatic and splenic margins not palpable. MUSCULOSKELETAL: Extremities without clubbing, cyanosis, or edema. No obvious deformities. RECTAL EXAM: No masses or tenderness, stool is brown. Hemoccult negative. NEUROLOGICAL: Awake and alert. No obvious cranial nerve deficits. Motor grossly within normal limits. Normal speech. PSYCHIATRIC: Appropriate mood and affect; insight and judgment normal. Laboratory Laboratory Tests Test 08/24/17 16:20 White Blood Count 10.1 Red Blood Count 2.32 Hemoglobin 7.1 Hematocrit 21.8 Mean Corpuscular Volume 93.8 Mean Corpuscular Hemoglobin 30.3 Mean Corpuscular Hemoglobin Concent 32.3 Red Cell Distribution Width 14.8 Platelet Count 326 Mean Platelet Volume 8.0 Neutrophils (%) (Auto) 78.0 Lymphocytes (%) (Auto) 13.1 Monocytes (%) (Auto) 6.6 Eosinophils (%) (Auto) 1.6 Basophils (%) (Auto) 0.7 Neutrophils # (Auto) 7.9 Lymphocytes # (Auto) 1.3 Monocytes # (Auto) 0.7 Eosinophils # (Auto) 0.2 Basophils # (Auto) 0.1 CBC Comment DIFF FINAL Differential Comment Prothrombin Time 10.0 Prothromb Time International Ratio 0.9 Activated Partial Thromboplast Time 28.3 Blood Urea Nitrogen 17 Creatinine 1.38 Random Glucose 392 Calcium Level 8.4 Sodium Level 135 Potassium Level 4.3 Chloride Level 102 Carbon Dioxide Level 27.2 Anion Gap 6 Estimat Glomerular Filtration Rate 63 Result Diagram: 08/24/17 16208/24/17 162 Imaging No new imaging studies. Caprini VTE Risk Assessment Caprini VTE Risk Assessment: Mod/High Risk (score >= 2) Caprini Risk Assessment Model Point Value = 1 Point Value = 2 Point Value = 3 Point Value = 5 Age 41-60 Minor surgery BMI > 25 kg/m2 Swollen legs Varicose veins or History of unexplained or recurrent spontaneous Oral contraceptives or hormone replacement Sepsis (< 1 month) Serious lung disease, including pneumonia (< 1 month) Abnormal pulmonary function Acute myocardial infarction Congestive heart failure (< 1 month) History of inflammatory bowel disease Medical patient at bed rest Age 61-74 Arthroscopic surgery Major open surgery (> 45 min) Laparoscopic surgery (> 45 min) Malignancy Confined to bed (> 72 hours) Immobilizing plaster cast Central venous access Age >= 75 History of VTE Family history of VTE Factor V Leiden Prothrombin [id number] Lupus anticoagulant Anticardiolipin antibodies Elevated serum homocysteine Heparin-induced thrombocytopenia Other congenital or acquired thrombophilia Stroke (< 1 month) Elective arthroplasty Hip, pelvis, or leg fracture Acute spinal cord injury (< 1 month) Prophylaxis Regimen Total Risk Factor Score Risk Level Prophylaxis Regimen 0-1 Low Early ambulation 2 Moderate Order ONE of the following: *Sequential Compression Device (SCD) *Heparin 5000 units SQ BID 3-4 Higher Order ONE of the following medications: *Heparin 5000 units SQ TID *Enoxaparin/Lovenox 40 mg SQ daily (WT < 150 kg, CrCl > 30 mL/min) *Enoxaparin/Lovenox 30 mg SQ daily (WT < 150 kg, CrCl > 10-29 mL/min) *Enoxaparin/Lovenox 30 mg SQ BID (WT < 150 kg, CrCl > 30 mL/min) AND/OR *Sequential Compression Device (SCD) 5 or more Highest Order ONE of the following medications: *Heparin 5000 units SQ TID (Preferred with Epidurals) *Enoxaparin/Lovenox 40 mg SQ daily (WT < 150 kg, CrCl > 30 mL/min) *Enoxaparin/Lovenox 30 mg SQ daily (WT < 150 kg, CrCl > 10-29 mL/min) *Enoxaparin/Lovenox 30 mg SQ BID (WT < 150 kg, CrCl > 30 mL/min) AND *Sequential Compression Device (SCD) Assessment and Plan Assessment and Plan 1. Symptomatic Anemia in a patient status post CABG in this facility one week and a half ago, Hemoglobin 7.1 try to keep hemoglobin in 10 for Cardiac patients will give two units of PRBCs 2. OA by history 3. DM II continue ADA diet and sliding scale 4. CAD status post CABG recently in this facility assisted closure device on sternal area 5. Hyperlipidemia continue Statins 6. Depression by history continue home medicines 7. GERD to continue PPIs DVT prophylaxis with SCDs due to Severe anemia and symptomatic. will try to discharge after blood transfusion in am tomorrow. Code Status Full Code. Discussed Condition With Olga Huber MD Physician Certification 2 Midnight Certification Type: Admission for Inpatient Services Order for Inpatient Services The services are ordered in accordance with Medicare regulations or non- Medicare payer requirements, as applicable. In the case of services not specified as inpatient-only, they are appropriately provided as inpatient services in accordance with the 2-midnight benchmark. Estimated LOS (days): 1 days is the estimated time the patient will need to remain in the hospital, assuming treatment plan goals are met and no additional complications. Post-Hospital Plan: SNF Morris Velarde MD Aug 24, 2017 17:30
[2017-08-24] MEDS ORDERED: oxyCODONE/ACETAMINOPHEN 7.5 MG/325 MG TAB PO PRN (17:45)
[2017-08-24] MEDS ORDERED: INSULIN ASPART SUPPLEMENTAL SCALE SQ SCH (21:00)
[2017-08-24] MEDS: SODIUM CHLORIDE 0.9% FLUSH 10 ML FLUSH IV FLUSH SCH (21:00)
[2017-08-24] MEDS ORDERED: ATORVASTATIN 40 MG TAB PO SCH (21:00)
[2017-08-24] MEDS: RESP: ALBUTEROL 2.5 MG/IPRATROPIUM 0.5 MG NEB (SCH) NEB (21:19)
[2017-08-24] MEDS: METOPROLOL TARTRATE 25 MG TAB PO SCH (21:31)
[2017-08-24] MEDS: guaiFENesin E.R. 600 MG TAB PO SCH (21:31)
[2017-08-24] MEDS: QUEtiapine FUMARATE 25 MG TAB PO SCH (21:31)
[2017-08-24] MEDS: DOCUSATE SODIUM 50 MG/SENNA 8.6 MG TAB PO SCH (21:31)
[2017-08-24] MEDS: AMIODARONE 200 MG TAB PO SCH (21:31)
[2017-08-24] MEDS: FAMOTIDINE 20 MG TAB PO SCH (21:31)
[2017-08-25] VITALS (7 sets, daily range): BP systolic 117–148; BP diastolic 66–73; PULSE 73–84; RESP 16–18; TEMP 97.5–98.7; O2SAT 94–99
[2017-08-25] MEDS: RESP: ALBUTEROL 2.5 MG/IPRATROPIUM 0.5 MG NEB (SCH) NEB ×2 (03:03→08:44)
[2017-08-25] MEDS: QUEtiapine FUMARATE 25 MG TAB PO SCH ×2 (05:11→13:20)
[2017-08-25] MEDS: METOPROLOL TARTRATE 25 MG TAB PO SCH (08:36)
[2017-08-25] MEDS: AMIODARONE 200 MG TAB PO SCH (08:36)
[2017-08-25] MEDS: FAMOTIDINE 20 MG TAB PO SCH (08:37)
[2017-08-25] MEDS: guaiFENesin E.R. 600 MG TAB PO SCH (08:37)
[2017-08-25] MEDS: DOCUSATE SODIUM 50 MG/SENNA 8.6 MG TAB PO SCH (08:37)
[2017-08-25] MEDS: SODIUM CHLORIDE 0.9% FLUSH 10 ML FLUSH IV FLUSH SCH (08:37)
--- NOTE | 2017-08-25 08:57 | HHI.DCPOC ---
Discharge Care Plan Diagnosis: (1) Symptomatic anemia (2) S/P CABG (coronary artery bypass graft) Goals to Promote Your Health * To prevent worsening of your condition and complications * To maintain your health at the optimal level Directions to Meet Your Goals Take your medications as prescribed Follow your dietary instruction Follow activity as directed Keep your appointments as scheduled Take your immunizations and boosters as scheduled If your symptoms worsen call your PCP, if no PCP go to Urgent Care Center or Emergency Room Smoking is Dangerous to Your Health. Avoid second hand smoke Call the 24-hour hour crisis hotline for domestic abuse at Aylin Garcia PA-C Aug 25, 2017 8:57 am
[2017-08-25] MEDS ORDERED: ASPIRIN EC 81 MG TABEC PO SCH (09:00)
[2017-08-25] MEDS ORDERED: GLUCAGON 1 MG/ML VIAL OTHER PRN (09:15)
[2017-08-25] MEDS ORDERED: DEXTROSE 50% IN WATER 50 ML VIAL(D50) IV PUSH PRN (09:15)
[2017-08-25] MEDS ORDERED: OXYC1TAB35 PO (09:34)
--- NOTE | 2017-08-25 10:31 | HHI.PR ---
Subjective Remarks F/U anemia. Tolerated blood transfusion. Remains asymptomatic. Discussed with RN Objective Vitals Vital Signs Date Time Temp Pulse Resp B/P (MAP) Pulse Ox O2 Delivery O2 Flow Rate FiO2 08/25/17 07:37 98.0 81 18 133/71 (91) 99 08/25/17 03:31 98.1 84 18 130/73 (92) 99 08/25/17 02:35 98.7 80 18 126/72 96 08/25/17 01:28 98.3 82 18 119/69 (86) 99 08/25/17 00:28 98.3 74 16 123/67 95 08/24/17 23:22 98.6 84 18 117/68 (84) 100 08/24/17 23:18 98.4 76 18 131/78 97 08/24/17 21:23 98 21 08/24/17 21:22 98.6 82 18 110/68 96 08/24/17 20:58 98.6 80 18 121/65 98 08/24/17 20:16 98.5 88 18 119/58 97 08/24/17 20:07 98.5 88 18 118/58 (78) 100 08/24/17 18:23 55 16 199/64 (109) 98 Room Air 08/24/17 15:35 98.4 85 16 102/78 (86) 98 I/O 08/24/17 08/24/17 08/24/17 08/25/17 08/25/17 08/25/17 07:00 15:00 23:00 07:00 15:00 23:00 Intake Total 300 ml 1950 ml Output Total 1800 ml Balance 300 ml 150 ml Intake Oral 300 ml Packed Cells 800 ml Blood Product IV Normal Saline Flush 1150 ml Output Urine Total 1800 ml Result Diagram: 08/24/17 1620 08/24/17 1620 Objective Remarks GENERAL: Well-developed elderly male patient, well-nourished SKIN: Warm and dry. CARDIOVASCULAR: Regular rate and rhythm. Dressing over sternum. RESPIRATORY: No accessory muscle use. Clear to auscultation. Breath sounds equal bilaterally. GASTROINTESTINAL: Abdomen soft, non-tender, nondistended. MUSCULOSKELETAL: Extremities without clubbing, cyanosis, or edema. No obvious deformities. NEUROLOGICAL: Awake and alert. No obvious cranial nerve deficits. Motor grossly within normal limits. Normal speech. PSYCHIATRIC: Appropriate mood and affect; insight and judgment normal. Procedures none A/P Problem List: (1) Symptomatic anemia ICD Code: D64.9 - Anemia, unspecified Status: Acute Assessment and Plan 1. Symptomatic Anemia in a patient status post CABG in this facility one week and a half ago, improved with blood transfusion Hemoglobin 7.1 try to keep hemoglobin in 10 for Cardiac patients will give two units of PRBCs 2. OA by history 3. DM II continue ADA diet and sliding scale. Stable 4. CAD status post CABG. Wound VAC to be discontinued. Dressing changes per CVT 5. Hyperlipidemia continue Statins 6. Depression by history continue home medicines 7. GERD to continue PPIs DVT prophylaxis with SCDs Discharge Planning Discharge patient to SNF Condition on discharge: Improved Regular Diet as tolerated Ad Jeannette activity no driving Rx written: Percocet Follow-up with primary care physician and CVT Joshua Marshall MD Aug 25, 2017 10:31
[2017-08-25] MEDS ORDERED: INSULIN ASPART SUPPLEMENTAL SCALE SQ SCH (12:00)
[2017-08-25 12:30] LABS: AUTOMATED NEUTROPHIL # 7.2 TH/MM3 (1.8-7.7); BASOPHIL % 0.3 % (0.0-2.0); EOSINOPHIL # 0.2 TH/MM3 (0-0.4); EOSINOPHIL % 1.7 % (0.0-4.0); HEMATOCRIT 27.7 % (39.0-51.0); HEMO FLAGS DIFF FINAL; LYMPH % 16.4 % (9.0-44.0); LYMPHOCYTE # 1.6 TH/MM3 (1.0-4.8); MEAN CORPUSCULAR HGB CONC 33.7 % (32.0-36.0); MONO % 6.1 % (0.0-8.0); NEUT % 75.5 % (16.0-70.0); PLATELET COUNT 313 TH/MM3 (150-450); RED BLOOD COUNT 3.12 MIL/MM3 (4.50-5.90); RED CELL DISTRIBUTION WIDTH 16.6 % (11.6-17.2); WHITE BLOOD COUNT 9.5 TH/MM3 (4.0-11.0)
[2017-08-25 12:56] LABS: BICARBONATE 27.8 MEQ/L (21.0-32.0); POTASSIUM 4.3 MEQ/L (3.5-5.1)
--- NOTE | 2017-08-25 19:31 | PD.WCN.NOT ---
Wound Consult Description: Consult for VAC MANAGEMENT of anterior chest wound. Patient had CABG last admit and wound vac is on chest, please evaluate per Dr Harry Communicated with: GIOVANNI White relay engineer Recommendation: Remove wound vac. Contact Cardio Vascular for orders. Additional Information: Patient not seen. Spoke with RN regarding Provena portable wound VAC that should have been removed upon arrival for assessment per protocol. Defer to Cardio Vascular for dressing changes. Tuyet Flores [facility] Aug 25, 2017 19:31
[2017-08-25] MEDS ORDERED: INSULIN DETEMIR 100 UNITS/ML VIAL SQ SCH (21:00)
== END 2017-08-25 15:16 | disposition home or self-care (01) ==
LOC: NEPE 13:59 → NEDA 17:31 → NEPFCDU 18:56
PROVIDERS: ADMIT Internal Medicine; ATTEND Internal Medicine
DX: D64.9 Anemia, unspecified (principal); E11.9 Type 2 diabetes mellitus without complications; I25.10 Atherosclerotic heart disease of native coronary artery without angina pectoris; E78.5 Hyperlipidemia, unspecified; F32.9 Major depressive disorder, single episode, unspecified; K21.9 Gastro-esophageal reflux disease without esophagitis; M19.90 Unspecified osteoarthritis, unspecified site; F12.90 Cannabis use, unspecified, uncomplicated; Z79.899 Other long term (current) drug therapy; Z79.82 Long term (current) use of aspirin; Z95.1 Presence of aortocoronary bypass graft; Z86.14 Personal history of Methicillin resistant Staphylococcus aureus infection; Z89.411 Acquired absence of right great toe
CPT/HCPCS: 36430; 80048; 82948; 85025; 85610; 85730; 86850; 86900; 86901; 86920; 94150; 94640; 94664; 96372; 99285; G0378; J1815; P9016

== ENCOUNTER 2017-11-27 13:37 | Emergency (ER) | payer MEDICAID, MEDICARE ==
[~2017-11-27] VITALS: Ht 175.3 cm; Wt 80.0 kg
[~2017-11-27 13:37] MED LIST changes: +OXYC1TAB35 PO; -PERC7.5T13 PO
[2017-11-27 13:55] VITALS: BP 138/70; PULSE 75; RESP 18; TEMP 97.8; O2SAT 100
[2017-11-27 14:01] VITALS: RESP 18; O2SAT 100
[2017-11-27 14:17] LABS: AUTOMATED NEUTROPHIL # 7.5 TH/MM3 (1.8-7.7); BASOPHIL % 0.4 % (0.0-2.0); EOSINOPHIL % 0.3 % (0.0-4.0); HEMATOCRIT 33.2 % (39.0-51.0); HEMOGLOBIN 10.8 GM/DL (13.0-17.0); LYMPH % 8.2 % (9.0-44.0); LYMPHOCYTE # 0.7 TH/MM3 (1.0-4.8); MEAN CELL VOLUME 90.8 FL (80.0-100.0); MEAN CORPUSCULAR HEMOGLOBIN 29.5 PG (27.0-34.0); MEAN CORPUSCULAR HGB CONC 32.4 % (32.0-36.0); MEAN PLATELET VOLUME 8.2 FL (7.0-11.0); MONO % 7.1 % (0.0-8.0); MONOCYTE # 0.6 TH/MM3 (0-0.9); PLATELET COUNT 236 TH/MM3 (150-450); RED BLOOD COUNT 3.66 MIL/MM3 (4.50-5.90)
[2017-11-27 14:29] LABS: ALBUMIN 3.6 GM/DL (3.4-5.0); BICARBONATE 28.8 MEQ/L (21.0-32.0); BLOOD UREA NITROGEN 16 MG/DL (7-18); CALCIUM 9.3 MG/DL (8.5-10.1); CHLORIDE 106 MEQ/L (98-107); CREATININE 1.81 MG/DL (0.60-1.30); GLOMERULAR FILTRATION RATE 46 ML/MIN (>89); GLUCOSE,RANDOM 91 MG/DL (74-106); SODIUM (NA) 139 MEQ/L (136-145)
[2017-11-27 14:31] LABS: ALT (GPT) 32 U/L (12-78); AST (GOT) 24 U/L (15-37)
[2017-11-27 14:32] LABS: ALKALINE PHOSPHATASE 82 U/L (45-117); TOTAL BILIRUBIN ADULT 0.2 MG/DL (0.2-1.0)
--- NOTE | 2017-11-27 14:49 | PD ---
HPI Chief Complaint: Diabetic Time Seen by Provider: 13:48 Travel History International Travel<30 days: No Contact w/Intl Traveler<30days: No Traveled to known affect area: No History of Present Illness HPI 62-year-old male presents to the emergency department at the request of the [place] outpatient clinic for a low blood sugar this morning. Patient states that out of habit, he administered insulin while he was fasting for labs. States that his blood sugar was 39 at the clinic and he drank orange juice and eat crackers and glucose increased to 89. Currently, patient denies fever, chills, nausea, vomiting. Patient denies any other complaints today. PFSH Past Medical History Arthritis: Yes Asthma: No Blood Disorders: No Anxiety: No Depression: No Heart Rhythm Problems: No Cancer: No Cardiovascular Problems: Yes High Cholesterol: No Chemotherapy: No Chest Pain: No Congestive Heart Failure: No COPD: No Diabetes: Yes Patient Takes Glucophage: Yes Diminished Hearing: No Endocrine: No Gastrointestinal Disorders: No Genitourinary: No Hypertension: Yes Immune Disorder: No Implanted Vascular Access Dvce: No Musculoskeletal: No Neurologic: No Psychiatric: No Reproductive: No Respiratory: No Integumentary: Yes (recent MRSA with IV antibiotics) Immunizations Current: No Radiation Therapy: No Sleep Apnea: No Thyroid Disease: No ?: Not Past Surgical History Body Medical Devices: wound vac Other Surgery: Yes (RIGHT BIG TOE AMPUTATED) Social History Alcohol Use: Yes (OCC) Tobacco Use: No Substance Use: No Allergies-Medications (Allergen,Severity, Reaction): Coded Allergies: No Known Allergies (Verified , 07/20/17) Reported Meds & Prescriptions Reported Meds & Active Scripts Active Famotidine 20 Mg Tab 20 Mg PO BID Adult Aspirin EC Low Strength (Aspirin) 81 Mg Tabec 81 Mg PO DAILY Atorvastatin (Atorvastatin Calcium) 40 Mg Tab 40 Mg PO HS Reported Ferrous Gluconate 324 Mg (37.5 Mg Iron) Tab 324 Mg PO DAILY Metformin (Metformin HCl) 500 Mg Tab 500 Mg PO BID Atenolol 25 Mg Tab 25 Mg PO DAILY Folic Acid 1 Mg Tablet 1 Mg PO DAILY Tresiba Flextouch Pen Inj (Insulin Degludec Inj) 300 unit/3 ML Pen 15 Units SQ HS Jardiance (Empagliflozin) 10 Mg Tab 10 Mg PO DAILY Januvia (Sitagliptin Phosphate) 50 Mg Tab 50 Mg PO BID Lasix (Furosemide) 40 Mg Tab 40 Mg PO DAILY Losartan (Losartan Potassium) 25 Mg Tab 25 Mg PO DAILY Toprol XL (Metoprolol Succinate) 50 Mg Tab 50 Mg PO BID Potassium Chloride ER (Potassium Chloride) 20 Meq Tab 20 Meq PO DAILY Seroquel (Quetiapine Fumarate) 25 Mg Tab 25 Mg PO HS One Daily Complete (Multivitamin with Minerals) 1 Each Tablet 1 Tab PO DAILY Lantus Inj (Insulin Glargine) 1,000 Unit/10 Ml Vial 10 Units SQ HS Novolog Inj (Insulin Aspart) 1,000 Unit/10 Ml Vial 0 SQ ACHS Sliding Scale as directed. Review of Systems Except as stated in HPI: all other systems reviewed are Neg Physical Exam Narrative GENERAL: Well-developed well-nourished no apparent distress SKIN: Focused skin assessment warm/dry. HEAD: Atraumatic. Normocephalic. EYES: Pupils equal and round. No scleral icterus. No injection or drainage. Strabismus present ENT: No nasal bleeding or discharge. Mucous membranes pink and moist. NECK: Trachea midline. No JVD. CARDIOVASCULAR: Regular rate and rhythm. No murmur appreciated. RESPIRATORY: No accessory muscle use. Clear to auscultation. Breath sounds equal bilaterally. GASTROINTESTINAL: Abdomen soft, non-tender, nondistended. MUSCULOSKELETAL: No obvious deformities. No clubbing. No cyanosis. No edema. NEUROLOGICAL: Awake and alert. No obvious cranial nerve deficits. Motor grossly within normal limits. Normal speech. PSYCHIATRIC: Appropriate mood and affect; insight and judgment normal. Data Data Last Documented VS Vital Signs Date Time Temp Pulse Resp B/P (MAP) Pulse Ox O2 Delivery O2 Flow Rate FiO2 11/27/17 14:54 98.2 81 18 138/70 (92) 100 Room Air Orders Orders Complete Blood Count With Diff (11/27/17 13:55) Comprehensive Metabolic Panel (11/27/17 13:55) Blood Glucose (11/27/17 13:55) Blood Glucose (11/27/17 14:25) Ecg Monitoring (11/27/17 13:55) Iv Access Insert/Monitor (11/27/17 13:55) Oximetry (11/27/17 13:55) Ed Discharge Order (11/27/17 16:35) Labs Laboratory Tests Test 11/27/17 14:00 White Blood Count 9.0 TH/MM3 Red Blood Count 3.66 MIL/MM3 Hemoglobin 10.8 GM/DL Hematocrit 33.2 % Mean Corpuscular Volume 90.8 FL Mean Corpuscular Hemoglobin 29.5 PG Mean Corpuscular Hemoglobin Concent 32.4 % Red Cell Distribution Width 17.0 % Platelet Count 236 TH/MM3 Mean Platelet Volume 8.2 FL Neutrophils (%) (Auto) 84.0 % Lymphocytes (%) (Auto) 8.2 % Monocytes (%) (Auto) 7.1 % Eosinophils (%) (Auto) 0.3 % Basophils (%) (Auto) 0.4 % Neutrophils # (Auto) 7.5 TH/MM3 Lymphocytes # (Auto) 0.7 TH/MM3 Monocytes # (Auto) 0.6 TH/MM3 Eosinophils # (Auto) 0.0 TH/MM3 Basophils # (Auto) 0.0 TH/MM3 CBC Comment DIFF FINAL Differential Comment Blood Urea Nitrogen 16 MG/DL Creatinine 1.81 MG/DL Random Glucose 91 MG/DL Total Protein 8.0 GM/DL Albumin 3.6 GM/DL Calcium Level 9.3 MG/DL Alkaline Phosphatase 82 U/L Aspartate Amino Transf (AST/SGOT) 24 U/L Alanine Aminotransferase (ALT/SGPT) 32 U/L Total Bilirubin 0.2 MG/DL Sodium Level 139 MEQ/L Potassium Level 4.4 MEQ/L Chloride Level 106 MEQ/L Carbon Dioxide Level 28.8 MEQ/L Anion Gap 4 MEQ/L Estimat Glomerular Filtration Rate 46 ML/MIN MDM Medical Decision Making Medical Screen Exam Complete: Yes Emergency Medical Condition: Yes Differential Diagnosis Hypoglycemia secondary to insulin, medication noncompliance, diabetes mellitus Narrative Course 62-year-old male presents to the emergency department via [facility] at the request of the [place] outpatient clinic for a low blood sugar this morning. Patient states that out of habit, he administered insulin while he was fasting for labs. States that his blood sugar was 39 at the clinic and he drank orange juice and eat crackers and glucose increased to 89. Currently, patient denies fever, chills, nausea, vomiting, abdominal pain, weakness. Patient denies any other complaints today. Unfortunately, he does not know the type of insulin he takes but is is [facility] that [facility] has [facility] insulin. Vital signs stable. Physical exam findings essentially unremarkable. [id number] blood sugar at 14:01 89 initially in the ED. Repeat at 14:54 158 after orange juice and miguelangel crackers. Last BGL 139. Pt remained stable in the ED today. Pt will be discharged with strict instructions to return for blood sugar abnormalities. Advised he continue checking his blood sugars every 2 hours until he goes to sleep tonight. I do not suspect he will have any further drops in his blood sugar as he last took his insulin early this morning and his blood sugar has been stable on the emergency department today. Advised patient follow-up with [facility] Return for worsening or persistent symptoms. 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 Take all medications as prescribed. Continue to monitor your blood sugars. Monitor your blood sugars every 2 hours today until you go to sleep. Disposition: 01 DISCHARGE HOME Condition: Stable Denita Marie Nov 27, 2017 14:49
[2017-11-27 14:54] VITALS: BP 138/70; PULSE 81; RESP 18; TEMP 98.2; O2SAT 100
[2017-11-27] MEDS ORDERED: EMPA1TAB PO (15:43)
[2017-11-27] MEDS ORDERED: FERR325T72 PO (15:43)
[2017-11-27] MEDS ORDERED: ATEN25TA PO (15:43)
[2017-11-27] MEDS ORDERED: LOSA25TA PO (15:43)
[2017-11-27] MEDS ORDERED: FOLI1TAB6 PO (15:43)
[2017-11-27] MEDS ORDERED: POTA-163 PO (15:43)
[2017-11-27] MEDS ORDERED: FURO1TAB60 PO (15:43)
[2017-11-27] MEDS ORDERED: TOPR50TA PO (15:43)
[2017-11-27] MEDS ORDERED: METF500T PO (15:43)
[2017-11-27] MEDS ORDERED: SERO25TA PO (15:43)
[2017-11-27] MEDS ORDERED: SITA50 PO (15:43)
[2017-11-27] MEDS ORDERED: INSU1INJ14 SQ (15:43)
== END 2017-11-27 17:07 | disposition home or self-care (01) ==
LOC: NEPC 13:37
DX: E11.9 Type 2 diabetes mellitus without complications (principal); E16.0 Drug-induced hypoglycemia without coma; I10 Essential (primary) hypertension; M19.90 Unspecified osteoarthritis, unspecified site; Z79.4 Long term (current) use of insulin; Z79.82 Long term (current) use of aspirin
CPT/HCPCS: 80053; 85025; 99283

== ENCOUNTER 2018-02-08 12:02 | Inpatient (IN) | payer MEDICARE, MEDICAID ==
[~2018-02-08 12:02] MED LIST changes: -AMIO200T PO; +ATEN25TA PO; -DOCU100C15 PO; +EMPA1TAB PO; +FERR325T72 PO; +FOLI1TAB6 PO; +FURO1TAB60 PO; +INSU1INJ14 SQ; -IPRASOL INH; +LOSA25TA PO; +METF500T PO; -METO25TA3 PO; -MIRA3350 PO; -OXYC1TAB35 PO; +POTA-163 PO; -QUET1TAB7 PO; +SERO25TA PO; +SITA50 PO; +TOPR50TA PO
[2018-02-08 12:22] VITALS: BP 131/74; PULSE 108; RESP 20; TEMP 98.2; O2SAT 100
[2018-02-08] MEDS ORDERED: SODIUM CHLOR 0.9% 1000 ML INJ 1,000 ML IV SCH (15:24)
--- NOTE | 2018-02-08 15:26 | PD ---
HPI Chief Complaint: GI Complaint Time Seen by Provider: 15:15 Travel History International Travel<30 days: No Contact w/Intl Traveler<30days: No Traveled to known affect area: No History of Present Illness HPI This is a 62-year-old male with history of diabetes and coronary artery disease. He presents for evaluation of nausea and vomiting. Symptoms started 1 week ago. He reports several episodes of nonbloody emesis, worse after meals. He reports intermittent generalized abdominal discomfort but none currently. He denies chest pain or shortness of breath, diarrhea or constipation, he reports that he had a normal bowel movement 1-2 days ago. He denies any fevers, chills, flank pain, dysuria, hematuria. Denies any history of abdominal surgeries. Denies any dietary indiscretions. No other complaints at this time. PFSH Past Medical History Arthritis: Yes Asthma: No Blood Disorders: No Anxiety: No Depression: No Heart Rhythm Problems: No Cancer: No Cardiovascular Problems: Yes High Cholesterol: No Chemotherapy: No Chest Pain: No Congestive Heart Failure: No COPD: No Diabetes: Yes Patient Takes Glucophage: Yes (METFORMIN) Diminished Hearing: No Endocrine: No Gastrointestinal Disorders: No Genitourinary: No Hypertension: Yes Immune Disorder: No Implanted Vascular Access Dvce: No Musculoskeletal: No Neurologic: No Psychiatric: No Reproductive: No Respiratory: No Integumentary: Yes (recent MRSA with IV antibiotics) Immunizations Current: No Radiation Therapy: No Sleep Apnea: No Thyroid Disease: No Past Surgical History Body Medical Devices: wound vac Coronary Artery Bypass Graft: Yes Other Surgery: Yes (RIGHT BIG TOE AMPUTATED) Social History Alcohol Use: Yes (OCC) Tobacco Use: No Substance Use: No Allergies-Medications (Allergen,Severity, Reaction): Coded Allergies: No Known Allergies (Verified , 07/20/17) Reported Meds & Prescriptions Reported Meds & Active Scripts Active Famotidine 20 Mg Tab 20 Mg PO BID Adult Aspirin EC Low Strength (Aspirin) 81 Mg Tabec 81 Mg PO DAILY Atorvastatin (Atorvastatin Calcium) 40 Mg Tab 40 Mg PO HS Reported Ferrous Gluconate 324 Mg (37.5 Mg Iron) Tab 324 Mg PO DAILY Metformin (Metformin HCl) 500 Mg Tab 500 Mg PO BID Atenolol 25 Mg Tab 25 Mg PO DAILY Folic Acid 1 Mg Tablet 1 Mg PO DAILY Tresiba Flextouch Pen Inj (Insulin Degludec Inj) 300 unit/3 ML Pen 15 Units SQ HS Jardiance (Empagliflozin) 10 Mg Tab 10 Mg PO DAILY Januvia (Sitagliptin Phosphate) 50 Mg Tab 50 Mg PO BID Lasix (Furosemide) 40 Mg Tab 40 Mg PO DAILY Losartan (Losartan Potassium) 25 Mg Tab 25 Mg PO DAILY Toprol XL (Metoprolol Succinate) 50 Mg Tab 50 Mg PO BID Potassium Chloride ER (Potassium Chloride) 20 Meq Tab 20 Meq PO DAILY Seroquel (Quetiapine Fumarate) 25 Mg Tab 25 Mg PO HS One Daily Complete (Multivitamin with Minerals) 1 Each Tablet 1 Tab PO DAILY Lantus Inj (Insulin Glargine) 1,000 Unit/10 Ml Vial 10 Units SQ HS Novolog Inj (Insulin Aspart) 1,000 Unit/10 Ml Vial 0 SQ ACHS Sliding Scale as directed. Review of Systems Except as stated in HPI: all other systems reviewed are Neg Physical Exam Narrative GENERAL: Well-developed well-nourished male no acute distress SKIN: Warm and dry. HEAD: Atraumatic. Normocephalic. EYES: Pupils equal and round. No scleral icterus. No injection or drainage. ENT: No nasal bleeding or discharge. Mucous membranes pink and moist. NECK: Trachea midline. No JVD. CARDIOVASCULAR: Regular rate and rhythm. No murmur appreciated. RESPIRATORY: No accessory muscle use. Clear to auscultation. Breath sounds equal bilaterally. GASTROINTESTINAL: Abdomen soft, non-tender, nondistended. Hepatic and splenic margins not palpable. MUSCULOSKELETAL: No obvious deformities. No clubbing. No cyanosis. No edema. NEUROLOGICAL: Awake and alert. No obvious cranial nerve deficits. Motor grossly within normal limits. Normal speech. PSYCHIATRIC: Appropriate mood and affect; insight and judgment normal. Data Data Last Documented VS Vital Signs Date Time Temp Pulse Resp B/P (MAP) Pulse Ox O2 Delivery O2 Flow Rate FiO2 02/08/18 16:28 97 Room Air 02/08/18 12:22 98.2 108 20 131/74 (93) Orders Orders Complete Blood Count With Diff (02/08/18 15:24) Comprehensive Metabolic Panel (02/08/18 15:24) Lipase (02/08/18 15:24) Prothrombin Time / Inr (Pt) (02/08/18 15:24) Act Partial Throm Time (Ptt) (02/08/18 15:24) Urinalysis - C+S If Indicated (02/08/18 15:24) Iv Access Insert/Monitor (02/08/18 15:24) Ecg Monitoring (02/08/18 15:24) Oximetry (02/08/18 15:24) Ondansetron Inj (Zofran Inj) (02/08/18 15:30) Sodium Chlor 0.9% 1000 Ml Inj (Ns 1000 M (02/08/18 15:24) Electrocardiogram (02/08/18 15:24) Creatine Kinase (Cpk) (02/08/18 15:24) Troponin I (02/08/18 15:24) Beta Hydroxybutyrate (Acetone) (02/08/18 15:26) Blood Glucose (02/08/18 15:26) Ct Abd/Pel W/O Iv Contrast (02/08/18 16:41) Admit Order (Ed Use Only) (02/08/18 17:45) Labs Laboratory Tests Test 02/08/18 15:40 White Blood Count 5.6 TH/MM3 Red Blood Count 5.09 MIL/MM3 Hemoglobin 15.0 GM/DL Hematocrit 45.3 % Mean Corpuscular Volume 89.0 FL Mean Corpuscular Hemoglobin 29.5 PG Mean Corpuscular Hemoglobin Concent 33.1 % Red Cell Distribution Width 14.2 % Platelet Count 236 TH/MM3 Mean Platelet Volume 9.2 FL Neutrophils (%) (Auto) 76.2 % Lymphocytes (%) (Auto) 15.1 % Monocytes (%) (Auto) 7.3 % Eosinophils (%) (Auto) 1.2 % Basophils (%) (Auto) 0.2 % Neutrophils # (Auto) 4.3 TH/MM3 Lymphocytes # (Auto) 0.9 TH/MM3 Monocytes # (Auto) 0.4 TH/MM3 Eosinophils # (Auto) 0.1 TH/MM3 Basophils # (Auto) 0.0 TH/MM3 CBC Comment DIFF FINAL Differential Comment Prothrombin Time 10.6 SEC Prothromb Time International Ratio 1.0 RATIO Activated Partial Thromboplast Time 25.7 SEC Blood Urea Nitrogen 101 MG/DL Creatinine 4.57 MG/DL Random Glucose 234 MG/DL Total Protein 10.0 GM/DL Albumin 3.9 GM/DL Calcium Level 10.2 MG/DL Alkaline Phosphatase 101 U/L Aspartate Amino Transf (AST/SGOT) 17 U/L Alanine Aminotransferase (ALT/SGPT) 29 U/L Total Bilirubin 0.4 MG/DL Sodium Level 134 MEQ/L Potassium Level 4.1 MEQ/L Chloride Level 96 MEQ/L Carbon Dioxide Level 24.5 MEQ/L Anion Gap 14 MEQ/L Estimat Glomerular Filtration Rate 16 ML/MIN Total Creatine Kinase 197 U/L Troponin I 0.04 NG/ML Lipase 247 U/L B-Hydroxybutyrate 0.32 MMOL/L MDM Medical Decision Making Medical Screen Exam Complete: Yes Emergency Medical Condition: Yes Medical Record Reviewed: Yes Differential Diagnosis Dehydration, electrolyte abnormality, obstruction, gastroparesis, peptic ulcer disease, diverticulitis, colitis Narrative Course The patient was placed on ECG monitoring pulse oximetry. A 12-lead EKG was obtained. Lab work, CT abdomen and pelvis has been ordered. The patient will be given IV fluids and Zofran. CBC is unremarkable. CMP reveals a GFR of 16, BUN 101, creatinine 4.57, significantly diminished kidney function in comparison to his baseline. Calcium is 10.2. Beta hydroxybutyrate is normal. CT abdomen pelvis reveals groundglass infiltrate right lower lung, the patient has no symptoms of pneumonia. At this point in time the plan will be to admit the patient for acute kidney injury. Diagnosis Primary Impression: ABDIEL (acute kidney injury) Admitting Information Admitting Physician Requests: it Artie Poole Feb 08, 2018 15:26
[2018-02-08] MEDS ORDERED: ONDANSETRON HCL 4 MG/2 ML VIAL IVP ONE (15:30)
[2018-02-08 16:16] LABS: AUTOMATED NEUTROPHIL # 4.3 TH/MM3 (1.8-7.7); BASOPHIL % 0.2 % (0.0-2.0); EOSINOPHIL # 0.1 TH/MM3 (0-0.4); EOSINOPHIL % 1.2 % (0.0-4.0); HEMATOCRIT 45.3 % (39.0-51.0); LYMPH % 15.1 % (9.0-44.0); LYMPHOCYTE # 0.9 TH/MM3 (1.0-4.8); MEAN CORPUSCULAR HEMOGLOBIN 29.5 PG (27.0-34.0); MEAN CORPUSCULAR HGB CONC 33.1 % (32.0-36.0); MEAN PLATELET VOLUME 9.2 FL (7.0-11.0); MONO % 7.3 % (0.0-8.0); MONOCYTE # 0.4 TH/MM3 (0-0.9); NEUT % 76.2 % (16.0-70.0); PLATELET COUNT 236 TH/MM3 (150-450); RED BLOOD COUNT 5.09 MIL/MM3 (4.50-5.90); RED CELL DISTRIBUTION WIDTH 14.2 % (11.6-17.2); WHITE BLOOD COUNT 5.6 TH/MM3 (4.0-11.0)
[2018-02-08 16:26] LABS: PROTHROMBIN TIME - PATIENT 10.6 SEC (9.8-11.6)
[2018-02-08 16:28] VITALS: O2SAT 97
[2018-02-08 16:33] LABS: ALBUMIN 3.9 GM/DL (3.4-5.0); AST (GOT) 17 U/L (15-37); BICARBONATE 24.5 MEQ/L (21.0-32.0); BLOOD UREA NITROGEN 101 MG/DL (7-18); CALCIUM 10.2 MG/DL (8.5-10.1); CHLORIDE 96 MEQ/L (98-107); CREATININE 4.57 MG/DL (0.60-1.30); GLOMERULAR FILTRATION RATE 16 ML/MIN (>89); GLUCOSE,RANDOM 234 MG/DL (74-106); SODIUM (NA) 134 MEQ/L (136-145)
[2018-02-08 16:34] LABS: ALT (GPT) 29 U/L (12-78)
[2018-02-08 16:38] LABS: ALKALINE PHOSPHATASE 101 U/L (45-117); TOTAL BILIRUBIN ADULT 0.4 MG/DL (0.2-1.0); TROPONIN I 0.04 NG/ML (0.02-0.05)
--- NOTE | 2018-02-08 17:16 | RADRPT ---
EXAM DATE/TIME: 02/08/2018 16:53 [facility] COMPARISON: CT ABDOMEN & PELVIS W/O CONTRAST, July 20, 2017, 22:18. INDICATIONS : Abdomen pain,eppigastric,nausea vomiting ORAL CONTRAST: No oral contrast ingested. RADIATION DOSE: 6.64 CTDIvol (mGy) MEDICAL HISTORY : Cardiovascular disease. Hypertension. Diabetes SURGICAL HISTORY : None. ENCOUNTER: Initial ACUITY: 4 - 6 days PAIN SCALE: 5/10 LOCATION: Abdomen TECHNIQUE: Volumetric scanning of the abdomen and pelvis was performed. Using automated exposure control and ad justment of the mA and/or kV according to patient size, radiation dose was kept as low as reasonably achievable to obtain optimal diagnostic quality images. DICOM format image data is available electro nically for review and comparison. FINDINGS: LOWER LUNGS: There is a patchy groundglass infiltrate in the right lung base. Left lung base is relatively clear. LIVER: Homogeneous density without lesion. There is no dilation of the biliary tree. No calcified gallston es. SPLEEN: Normal size without lesion. PANCREAS: Within normal limits. KIDNEYS: Normal in size and shape. There is no mass, stone, or hydronephrosis. ADRENAL GLANDS: Within normal limits. VASCULAR: There is no aortic aneurysm. BOWEL/MESENTERY: The stomach, small bowel, and colon demonstrate no acute abnormality. There is no free intraperitone al air or fluid. ABDOMINAL WALL: Within normal limits. RETROPERITONEUM: There is no lymphadenopathy. BLADDER: No wall thickening or mass. Well distended REPRODUCTIVE: Within normal limits. INGUINAL: There is no lymphadenopathy or hernia. MUSCULOSKELETAL: Within normal limits for patient age. CONCLUSION: Groundglass infiltrate the right lung base. The abdomen and pelvis is otherwise unremarkable. Ahmet Sheikh MD on February 08, 2018 at 17:12 Board Certified Radiologist. This report was verified electronically.
[2018-02-08] MEDS ORDERED: GLUCAGON 1 MG/ML VIAL OTHER PRN (18:00)
[2018-02-08] MEDS ORDERED: SODIUM CHLORIDE 0.9% FLUSH 10 ML FLUSH IV FLUSH PRN (18:00)
[2018-02-08] MEDS ORDERED: NALOXONE HCL 0.4 MG/ML AMP IV PUSH PRN (18:00)
[2018-02-08] MEDS ORDERED: DEXTROSE 50% IN WATER 50 ML VIAL(D50) IV PUSH PRN (18:00)
[2018-02-08] MEDS ORDERED: ONDANSETRON HCL 4 MG/2 ML VIAL IVP PRN (18:00)
--- NOTE | 2018-02-08 19:13 | HHI.HP ---
[facility] [place] Unknown Admission Diagnosis Acute kidney injury Diagnoses: Travel History International Travel<30 Days: No Contact w/Intl Traveler <30 Da: No Traveled to Known Affected Are: No History of Present Illness History from patient, ER physician communication, and review of medical records. Patient reported a for the past 1 week, he has been having constant nausea and vomiting. He states that whenever he eats what come straight back out. He denies any pain on swallowing food. He did have some diffuse abdominal pain after several bouts of vomiting. He thinks that his vomitus is a little bit of coffee-ground color. He denies any constipation. He reports that he did have diarrhea only once in the past 1 week. No black stools or red stools. Denies any fever. Patient states that he did continue to take his medications for diabetes and high blood pressure during these episodes. However because he was vomiting constantly, he does not think that he was able to keep any medications down. He did not particularly check blood sugars at home. However this morning, his sister was there checked his blood sugar and found it to be 217. He states that he lives alone and during this past 1 week because he was so sick and weak, he was mostly sitting on his chair. He did not call any of his sisters. Therefore they got worried and came down from [place] to check on him and brought him to the hospital today. Patient also complained about his tongue having a blister which started last week or Monday. He states that this blister started the same time with episodes of nausea and vomiting. He reports that initially when it came out, there was some pain. However now the pain is not there except that he just knows there is a little knot on the right side of his tongue. denies loss of weight no pain on swallowing food Review of Systems Except as stated in HPI: all other systems reviewed are Neg Past Family Social History Past Medical History htn dm hx of [place] , s/p cabg Aug 2017 chf- ef 40% by echo in jul 2017 pad- of [place] hyperlipidemia depresson gerd osteoarthritis Past Surgical History cabg coronary angiogram rigth toe amputation left arm sx - for mrsa infection Allergies: Coded Allergies: No Known Allergies (Verified , 07/20/17) Family History mom- heart problem, aicd Social History used to smoke, quit >20yrs ago no etoh abuse, no drugs occasional marijuana previously lives by himself, no longer driving , vision impairment Physical Exam Vital Signs Vital Signs Date Time Temp Pulse Resp B/P (MAP) Pulse Ox O2 Delivery O2 Flow Rate FiO2 02/08/18 16:28 97 Room Air 02/08/18 12:22 98.2 108 20 131/74 (93) 100 Physical Exam GENERAL: This is a well-nourished, well-developed patient, in no apparent distress. SKIN: No rashes, ecchymoses or lesions. Cool and dry. HEAD: Atraumatic. Normocephalic. No temporal or scalp tenderness. EYES: No scleral icterus. No injection or drainage. ENT: Nose without bleeding, purulent drainage or septal hematoma. Airway patent. Right lateral tongue with lesion which looks almost as though a piece of the tongue is removed. NECK: Trachea midline. No JVD Supple, nontender, no meningeal signs. CARDIOVASCULAR: Regular rate and rhythm without murmurs, gallops, or rubs. RESPIRATORY: Clear to auscultation. Breath sounds equal bilaterally. No wheezes , rales, or rhonchi. GASTROINTESTINAL: Abdomen soft, non-tender, nondistended. No guarding. MUSCULOSKELETAL: Extremities without clubbing, cyanosis, or edema. No calf tenderness. NEUROLOGICAL: Awake and alert. Motor and sensory grossly within normal limits. Normal speech. Laboratory Laboratory Tests Test 02/08/18 15:40 White Blood Count 5.6 Red Blood Count 5.09 Hemoglobin 15.0 Hematocrit 45.3 Mean Corpuscular Volume 89.0 Mean Corpuscular Hemoglobin 29.5 Mean Corpuscular Hemoglobin Concent 33.1 Red Cell Distribution Width 14.2 Platelet Count 236 Mean Platelet Volume 9.2 Neutrophils (%) (Auto) 76.2 Lymphocytes (%) (Auto) 15.1 Monocytes (%) (Auto) 7.3 Eosinophils (%) (Auto) 1.2 Basophils (%) (Auto) 0.2 Neutrophils # (Auto) 4.3 Lymphocytes # (Auto) 0.9 Monocytes # (Auto) 0.4 Eosinophils # (Auto) 0.1 Basophils # (Auto) 0.0 CBC Comment DIFF FINAL Differential Comment Prothrombin Time 10.6 Prothromb Time International Ratio 1.0 Activated Partial Thromboplast Time 25.7 Blood Urea Nitrogen 101 Creatinine 4.57 Random Glucose 234 Total Protein 10.0 Albumin 3.9 Calcium Level 10.2 Alkaline Phosphatase 101 Aspartate Amino Transf (AST/SGOT) 17 Alanine Aminotransferase (ALT/SGPT) 29 Total Bilirubin 0.4 Sodium Level 134 Potassium Level 4.1 Chloride Level 96 Carbon Dioxide Level 24.5 Anion Gap 14 Estimat Glomerular Filtration Rate 16 Total Creatine Kinase 197 Troponin I 0.04 Lipase 247 B-Hydroxybutyrate 0.32 Result Diagram: 02/08/18 1540 02/08/18 1540 Imaging Last 48 hours Impressions Abdomen/Pelvis CT 02/08/18 1641 Signed Impressions: Service Date/Time: January 16:53 - CONCLUSION: Groundglass infiltrate the right lung base. The abdomen and pelvis is otherwise unremarkable. Ahmet Sheikh MD Chest X-Ray 02/08/18 0000 Signed Impressions: Service Date/Time: January 19:19 - CONCLUSION: Mild right base infiltrate. Gary Rizzo MD Caprini VTE Risk Assessment Caprini VTE Risk Assessment: Mod/High Risk (score >= 2) Caprini Risk Assessment Model Point Value = 1 Point Value = 2 Point Value = 3 Point Value = 5 Age 41-60 Minor surgery BMI > 25 kg/m2 Swollen legs Varicose veins or History of unexplained or recurrent spontaneous Oral contraceptives or hormone replacement Sepsis (< 1 month) Serious lung disease, including pneumonia (< 1 month) Abnormal pulmonary function Acute myocardial infarction Congestive heart failure (< 1 month) History of inflammatory bowel disease Medical patient at bed rest Age 61-74 Arthroscopic surgery Major open surgery (> 45 min) Laparoscopic surgery (> 45 min) Malignancy Confined to bed (> 72 hours) Immobilizing plaster cast Central venous access Age >= 75 History of VTE Family history of VTE Factor V Leiden Prothrombin [id number] Lupus anticoagulant Anticardiolipin antibodies Elevated serum homocysteine Heparin-induced thrombocytopenia Other congenital or acquired thrombophilia Stroke (< 1 month) Elective arthroplasty Hip, pelvis, or leg fracture Acute spinal cord injury (< 1 month) Prophylaxis Regimen Total Risk Factor Score Risk Level Prophylaxis Regimen 0-1 Low Early ambulation 2 Moderate Order ONE of the following: *Sequential Compression Device (SCD) *Heparin 5000 units SQ BID 3-4 Higher Order ONE of the following medications: *Heparin 5000 units SQ TID *Enoxaparin/Lovenox 40 mg SQ daily (WT < 150 kg, CrCl > 30 mL/min) *Enoxaparin/Lovenox 30 mg SQ daily (WT < 150 kg, CrCl > 10-29 mL/min) *Enoxaparin/Lovenox 30 mg SQ BID (WT < 150 kg, CrCl > 30 mL/min) AND/OR *Sequential Compression Device (SCD) 5 or more Highest Order ONE of the following medications: *Heparin 5000 units SQ TID (Preferred with Epidurals) *Enoxaparin/Lovenox 40 mg SQ daily (WT < 150 kg, CrCl > 30 mL/min) *Enoxaparin/Lovenox 30 mg SQ daily (WT < 150 kg, CrCl > 10-29 mL/min) *Enoxaparin/Lovenox 30 mg SQ BID (WT < 150 kg, CrCl > 30 mL/min) AND *Sequential Compression Device (SCD) Assessment and Plan Assessment and Plan Impression: Acute renal failure Nausea/vomiting for 1 week. Possibly gastritis. Right lateral tongue lesion. Etiology unclear. Smoker. Painless lesion. Question whether this could be related to any underlying malignancy Dehydration secondary to GI loss Suspect underlying infection causing his nausea vomiting. In a diabetic. Hypertension Diabetes History of [place]. Status post CABG August 2017. Chronic systolic heart failure. EF of 40% by echo in July 2017. Peripheral arterial disease of lower extremities per patient. Hyperlipidemia Depression GERD Osteoarthritis Plan: IV hydration with normal saline at 50 cc/h. Also start on D5 half normal saline at 42 cc/h concomitantly. Watch for fluid overload in a heart failure patient. Currently, patient's lungs are clear. We will follow renal function post hydration. Hold losartan due to renal failure. Patient also has not made any urine since arrival to the hospital about 7 hours ago. We will monitor for urine output. If there is no any doubt, to bladder scan the patient. Check UA and urine culture if indicated. Check chest x-ray. Abdomen and pelvis CT personally reviewed. No evidence of acute pancreatitis/ gallstones. Patient's abdominal exam is also quite benign. Questionable right lower lung infiltrates on CT of the abdomen. Start patient on cefepime 1 g IV every 12 hours. Monitor fingersticks and cover with sliding scale coverage. Hold oral hypoglycemics and long-acting insulin. We will give trial of diet to see if patient is still persistently nauseous and vomiting. Hold diuretics and potassium supplements. As to his tongue lesion, I am unsure of the etiology. It does not look to be traumatic or infectious at all. I would consult ENT for further input. DVT prophylaxis with heparin. GI prophylaxis on famotidine. Discussed Condition With patient, ER MD, nursing staff Physician Certification 2 Midnight Certification Type: Admission for Inpatient Services Order for Inpatient Services The services are ordered in accordance with Medicare regulations or non- Medicare payer requirements, as applicable. In the case of services not specified as inpatient-only, they are appropriately provided as inpatient services in accordance with the 2-midnight benchmark. Estimated LOS (days): 3 days is the estimated time the patient will need to remain in the hospital, assuming treatment plan goals are met and no additional complications. Post-Hospital Plan: Home Swapna Rachel MD Feb 08, 2018 19:13
--- NOTE | 2018-02-08 19:41 | RADRPT ---
EXAM DATE/TIME: 02/08/2018 19:19 [place] COMPARISON: CHEST SINGLE AP, August 16, 2017, 4:10. CT ABDOMEN & PELVIS W/O CONTRAST, February 08, 2018, 16:53. INDICATIONS : Short of breath. MEDICAL HISTORY : None. SURGICAL HISTORY : CABG. ENCOUNTER: Initial ACUITY: 1 day PAIN SCORE: 0/10 LOCATION: Bilateral chest FINDINGS: Mild patchy infiltrate right base. Left lung appears clear. No pleural effusion. No pneumothorax. Heart size normal. Previous median sternotomy. CONCLUSION: Mild right base infiltrate. Gary Rizzo MD on February 08, 2018 at 19:37 Board Certified Radiologist. This report was verified electronically.
[2018-02-08 20:00] VITALS: BP 140/71; PULSE 117; RESP 18; TEMP 97.4; O2SAT 98
[2018-02-08] MEDS ORDERED: PILL SPLITTER OTHER PRN (20:00)
[2018-02-08] MEDS: INSULIN ASPART SUPPLEMENTAL SCALE SQ SCH (21:00)
[2018-02-08] MEDS ORDERED: METOPROLOL SUCCINATE 50 MG EXTENDED RELEASE TAB PO SCH (21:00)
[2018-02-08] MEDS: ATORVASTATIN 40 MG TAB PO SCH (21:12)
[2018-02-08] MEDS: QUEtiapine FUMARATE 25 MG TAB PO SCH (21:13)
[2018-02-08] MEDS: FAMOTIDINE 20 MG TAB PO SCH (21:13)
[2018-02-08] MEDS: CEFEPIME INJ 1,000 MG in SODIUM CHLORIDE 0.9% INJ 100 ML IV SCH (21:14)
[2018-02-08] MEDS: SODIUM CHLOR 0.9% 1000 ML INJ 1,000 ML IV SCH (21:14)
[2018-02-08] MEDS: SODIUM CHLORIDE 0.9% FLUSH 10 ML FLUSH IV FLUSH SCH (21:15)
[2018-02-08] MEDS: DEXT 5%-NACL 0.45% 1000 ML INJ 1,000 ML IV SCH (21:17)
[2018-02-08 21:33] LABS: AMORPHOUS SEDIMENT, URINE RARE; BACTERIA, URINE RARE /hpf; BILIRUBIN, URINE NEG (NEG); BLOOD, URINE NEG (NEG); GLUCOSE,URINE 1000 mg/dL (NEG); HYALINE CAST, URINE 2 /lpf (RARE); KETONE, URINE NEG (NEG); NITRITE,URINE NEG (NEG); SQUAMOUS EPITHELIAL CELL URINE <1 /hpf (0-5); URINE COLOR LIGHT-YELLOW (YELLW/STRAW); URINE LEUKOCYTE ESTERASE NEG (NEG)
[2018-02-09] VITALS (7 sets, daily range): BP systolic 111–146; BP diastolic 66–74; PULSE 86–112; RESP 18–21; TEMP 97.8–98.9; O2SAT 96–100
[2018-02-09 07:04] LABS: AUTOMATED NEUTROPHIL # 3.3 TH/MM3 (1.8-7.7); BASOPHIL % 0.4 % (0.0-2.0); EOSINOPHIL # 0.1 TH/MM3 (0-0.4); EOSINOPHIL % 2.5 % (0.0-4.0); HEMATOCRIT 34.9 % (39.0-51.0); HEMOGLOBIN 11.8 GM/DL (13.0-17.0); LYMPH % 21.7 % (9.0-44.0); LYMPHOCYTE # 1.2 TH/MM3 (1.0-4.8); MEAN CORPUSCULAR HEMOGLOBIN 30.1 PG (27.0-34.0); MEAN CORPUSCULAR HGB CONC 33.8 % (32.0-36.0); MEAN PLATELET VOLUME 9.1 FL (7.0-11.0); MONO % 14.9 % (0.0-8.0); MONOCYTE # 0.8 TH/MM3 (0-0.9); NEUT % 60.5 % (16.0-70.0); PLATELET COUNT 203 TH/MM3 (150-450); RED BLOOD COUNT 3.92 MIL/MM3 (4.50-5.90); RED CELL DISTRIBUTION WIDTH 13.8 % (11.6-17.2); WHITE BLOOD COUNT 5.4 TH/MM3 (4.0-11.0)
[2018-02-09 07:43] LABS: CREATININE 3.25 MG/DL (0.60-1.30)
[2018-02-09] MEDS: INSULIN ASPART SUPPLEMENTAL SCALE SQ SCH ×4 (08:00→22:13)
[2018-02-09] MEDS: SODIUM CHLORIDE 0.9% FLUSH 10 ML FLUSH IV FLUSH SCH ×2 (09:00→22:00)
[2018-02-09] MEDS: ATENOLOL 25 MG TAB PO SCH (09:00)
[2018-02-09] MEDS ORDERED: LOSARTAN 25 MG TAB PO SCH (09:00)
[2018-02-09] MEDS: MULTIVITAMINS/MINERALS THERAPEUTIC TAB PO SCH (09:21)
[2018-02-09] MEDS: FOLIC ACID 1 MG TAB PO SCH (09:22)
[2018-02-09] MEDS: FERROUS SULFATE 300 MG /5ML UDC PO SCH (09:22)
[2018-02-09] MEDS: FAMOTIDINE 20 MG TAB PO SCH ×2 (09:22→22:00)
[2018-02-09] MEDS: CEFEPIME INJ 1,000 MG in SODIUM CHLORIDE 0.9% INJ 100 ML IV SCH ×2 (09:22→22:00)
[2018-02-09] MEDS: HEPARIN SODIUM - SQ 10,000 UNITS/ML VIAL SQ SCH ×2 (09:23→22:01)
--- NOTE | 2018-02-09 11:18 | HHI.PR ---
Subjective Remarks The patient is in bed says he feel slightly improved. Some nausea in the morning but able to eat and keep down. No abd pain . No trouble with urination. Denies chest pain or sob. No fever or chills. Objective Vitals Vital Signs Date Time Temp Pulse Resp B/P (MAP) Pulse Ox O2 Delivery O2 Flow Rate FiO2 02/09/18 08:00 98.4 98 18 130/74 (92) 97 02/09/18 04:00 98.9 112 18 146/73 (97) 96 02/09/18 00:00 97.8 104 18 121/66 (84) 98 02/09/18 00:00 99 02/08/18 20:00 97.4 117 18 140/71 (94) 98 02/08/18 16:28 97 Room Air 02/08/18 12:22 98.2 108 20 131/74 (93) 100 I/O 02/08/18 02/08/18 02/08/18 02/09/18 02/09/18 02/09/18 07:00 15:00 23:00 07:00 15:00 23:00 Output Total 1500 ml Balance -1500 ml Output Urine Total 1500 ml Result Diagram: 02/09/18 0643 02/09/18 0643 Imaging Last Impressions Abdomen/Pelvis CT 02/08/18 1641 Signed Impressions: Service Date/Time: January 16:53 - CONCLUSION: Groundglass infiltrate the right lung base. The abdomen and pelvis is otherwise unremarkable. Ahmet Sheikh MD Chest X-Ray 02/08/18 0000 Signed Impressions: Service Date/Time: January 19:19 - CONCLUSION: Mild right base infiltrate. Gary Rizzo MD Objective Remarks GENERAL: This is a well-nourished, well-developed patient, in no apparent distress. SKIN: No rashes, ecchymoses or lesions. Cool and dry. HEAD: Atraumatic. Normocephalic. No temporal or scalp tenderness. EYES: No scleral icterus. No injection or drainage. ENT: Nose without bleeding, purulent drainage or septal hematoma. Airway patent. Right lateral tongue with lesion which looks almost as though a piece of the tongue is removed. NECK: Trachea midline. No JVD Supple, nontender, no meningeal signs. CARDIOVASCULAR: Regular rate and rhythm without murmurs, gallops, or rubs. RESPIRATORY: Clear to auscultation. Breath sounds equal bilaterally. No wheezes , rales, or rhonchi. GASTROINTESTINAL: Abdomen soft, non-tender, nondistended. No guarding. MUSCULOSKELETAL: Extremities without clubbing, cyanosis, or edema. No calf tenderness. NEUROLOGICAL: Awake and alert. Motor and sensory grossly within normal limits. Normal speech. A/P Assessment and Plan Acute renal failure Nausea/vomiting for 1 week. Possibly gastritis. Right lateral tongue lesion. Etiology unclear. Smoker. Painless lesion. Question whether this could be related to any underlying malignancy Dehydration secondary to GI loss Suspect underlying infection causing his nausea vomiting. In a diabetic. Hypertension Diabetes History of [place]. Status post CABG August 2017. Chronic systolic heart failure. EF of 40% by echo in July 2017. Peripheral arterial disease of lower extremities per patient. Hyperlipidemia Depression GERD Osteoarthritis Plan: IV hydration with normal saline at 50 cc/h. Also start on D5 half normal saline at 42 cc/h concomitantly. Watch for fluid overload in a heart failure patient. Currently, patient's lungs are clear. We will follow renal function post hydration. Hold losartan due to renal failure. Patient also has not made any urine since arrival to the hospital about 7 hours ago. We will monitor for urine output. If there is no any doubt, to bladder scan the patient. Check UA and urine culture if indicated. Check chest x-ray. Abdomen and pelvis CT personally reviewed. No evidence of acute pancreatitis/ gallstones. Patient's abdominal exam is also quite benign. Questionable right lower lung infiltrates on CT of the abdomen. Start patient on cefepime 1 g IV every 12 hours. Monitor fingersticks and cover with sliding scale coverage. Hold oral hypoglycemics and long-acting insulin. We will give trial of diet to see if patient is still persistently nauseous and vomiting. Hold diuretics and potassium supplements. As to his tongue lesion, I am unsure of the etiology. It does not look to be traumatic or infectious at all. Consult ENT for further input. DVT prophylaxis with heparin. GI prophylaxis on famotidine. Discussed Condition With patient, nurse Nita Verma MD Feb 09, 2018 11:18
[2018-02-09] MEDS: SODIUM CHLOR 0.9% 1000 ML INJ 1,000 ML IV SCH (12:25)
--- NOTE | 2018-02-09 13:53 | EKG ---
Date Performed: 02/08/2018 Time Performed: 16:03:56 PTAGE: 62 years EKG: SINUS TACHYCARDIA POSSIBLE LEFT ATRIAL ENLARGEMENT POSSIBLE LEFT VENTRICULAR HYPERTROPHY ST DEVIATION AND MODERATE T-WAVE ABNORMALITY, CONSIDER ANTERIOR ISCHEMIA ST DEVIATION AND MODERATE T-WA VE ABNORMALITY, CONSIDER INFERIOR ISCHEMIA ABNORMAL ECG PREVIOUS TRACING : 08/16/2017 05.29 Since the previous tracing, no significant change noted DOCTOR: Esvin Ron Interpretating Date/Time 02/09/2018 13:48:49
[2018-02-09] MEDS: DEXT 5%-NACL 0.45% 1000 ML INJ 1,000 ML IV SCH (17:49)
[2018-02-09] MEDS: ATORVASTATIN 40 MG TAB PO SCH (22:00)
[2018-02-09] MEDS: QUEtiapine FUMARATE 25 MG TAB PO SCH (22:00)
[2018-02-10] VITALS (8 sets, daily range): BP systolic 114–156; BP diastolic 57–83; PULSE 80–89; RESP 18–21; TEMP 97.7–98.4; O2SAT 97–100
[2018-02-10] MEDS: DEXT 5%-NACL 0.45% 1000 ML INJ 1,000 ML IV SCH ×2 (06:01→19:27)
[2018-02-10 07:16] LABS: BASOPHIL % 0.6 % (0.0-2.0); EOSINOPHIL # 0.1 TH/MM3 (0-0.4); EOSINOPHIL % 2.4 % (0.0-4.0); HEMATOCRIT 34.2 % (39.0-51.0); HEMOGLOBIN 11.3 GM/DL (13.0-17.0); LYMPH % 40.8 % (9.0-44.0); LYMPHOCYTE # 1.8 TH/MM3 (1.0-4.8); MEAN CELL VOLUME 89.3 FL (80.0-100.0); MEAN CORPUSCULAR HEMOGLOBIN 29.5 PG (27.0-34.0); MEAN PLATELET VOLUME 9.5 FL (7.0-11.0); MONO % 10.4 % (0.0-8.0); MONOCYTE # 0.4 TH/MM3 (0-0.9); NEUT % 45.8 % (16.0-70.0); PLATELET COUNT 195 TH/MM3 (150-450); RED BLOOD COUNT 3.83 MIL/MM3 (4.50-5.90); RED CELL DISTRIBUTION WIDTH 13.8 % (11.6-17.2); WHITE BLOOD COUNT 4.3 TH/MM3 (4.0-11.0)
[2018-02-10] MEDS: ATENOLOL 25 MG TAB PO SCH (07:38)
[2018-02-10] MEDS: FOLIC ACID 1 MG TAB PO SCH (07:38)
[2018-02-10] MEDS: MULTIVITAMINS/MINERALS THERAPEUTIC TAB PO SCH (07:38)
[2018-02-10] MEDS: HEPARIN SODIUM - SQ 10,000 UNITS/ML VIAL SQ SCH ×2 (07:38→19:56)
[2018-02-10] MEDS: CEFEPIME INJ 1,000 MG in SODIUM CHLORIDE 0.9% INJ 100 ML IV SCH ×2 (07:38→19:52)
[2018-02-10 07:41] LABS: BICARBONATE 26.7 MEQ/L (21.0-32.0); CALCIUM 8.6 MG/DL (8.5-10.1); CREATININE 2.28 MG/DL (0.60-1.30)
--- NOTE | 2018-02-10 08:11 | HHI.PR ---
Subjective Remarks With nausea , however able to keep the food down. Feels some shortness of breath and coughing no much sputum production. Feels congested. No fever or chills overnight. Denies chest pain. Has some shortness of breath however she is saturating well on room air. Has a good urine output. Objective Vitals Vital Signs Date Time Temp Pulse Resp B/P (MAP) Pulse Ox O2 Delivery O2 Flow Rate FiO2 02/10/18 04:11 80 02/10/18 04:00 97.9 83 18 136/76 (96) 99 02/10/18 00:00 98.2 83 20 123/74 (90) 98 02/10/18 00:00 82 02/09/18 20:00 98.1 89 19 144/74 (97) 98 02/09/18 19:59 91 02/09/18 16:00 98.5 88 18 129/68 (88) 99 02/09/18 12:00 98.8 86 21 111/69 (83) 100 I/O 02/09/18 02/09/18 02/09/18 02/10/18 02/10/18 02/10/18 07:00 15:00 23:00 07:00 15:00 23:00 Intake Total 1100 ml Output Total 1500 ml 2700 ml Balance -1500 ml -1600 ml Intake IV Total 1100 ml Output Urine Total 1500 ml 2700 ml # Voids 1 # Bowel Movements 0 Result Diagram: 02/10/18 0542 02/10/18 0542 Imaging Last Impressions Abdomen/Pelvis CT 02/08/18 1641 Signed Impressions: Service Date/Time: January 16:53 - CONCLUSION: Groundglass infiltrate the right lung base. The abdomen and pelvis is otherwise unremarkable. Ahmet Sheikh MD Chest X-Ray 02/08/18 0000 Signed Impressions: Service Date/Time: January 19:19 - CONCLUSION: Mild right base infiltrate. Gary Rizzo MD Objective Remarks GENERAL: This is a well-nourished, well-developed patient, in no apparent distress. SKIN: No rashes, ecchymoses or lesions. Cool and dry. HEAD: Atraumatic. Normocephalic. No temporal or scalp tenderness. EYES: No scleral icterus. No injection or drainage. ENT: Nose without bleeding, purulent drainage or septal hematoma. Airway patent. Right lateral tongue with lesion which looks almost as though a piece of the tongue is removed. NECK: Trachea midline. No JVD Supple, nontender, no meningeal signs. CARDIOVASCULAR: Regular rate and rhythm without murmurs, gallops, or rubs. RESPIRATORY: Clear to auscultation. Breath sounds equal bilaterally. No wheezes , rales, or rhonchi. GASTROINTESTINAL: Abdomen soft, non-tender, nondistended. No guarding. MUSCULOSKELETAL: Extremities without clubbing, cyanosis, or edema. No calf tenderness. NEUROLOGICAL: Awake and alert. Motor and sensory grossly within normal limits. Normal speech. A/P Assessment and Plan Acute renal failure Nausea/vomiting for 1 week. Possibly gastritis. Right lateral tongue lesion. Etiology unclear. Smoker. Painless lesion. Question whether this could be related to any underlying malignancy Dehydration secondary to GI loss Pneumonia lobar mid right lobar PNA . CXR reviewed with infiltrated right mid lobe . Suspect underlying infection causing his nausea vomiting. In a diabetic. Continue IV abx Hypertension Diabetes History of [place]. Status post CABG August 2017. Chronic systolic heart failure. EF of 40% by echo in July 2017. Peripheral arterial disease of lower extremities per patient. Hyperlipidemia Depression GERD Osteoarthritis IV hydration with normal saline at 50 cc/h. Also start on D5 half normal saline at 42 cc/h concomitantly. Watch for fluid overload in a heart failure patient. We will follow renal function post hydration. Hold losartan due to renal failure. Patient also has not made any urine since arrival to the hospital about 7 hours ago. We will monitor for urine output. UA normal Chest x-ray reviewed right mid infiltrate Abdomen and pelvis CT personally reviewed. No evidence of acute pancreatitis/ gallstones. Patient's abdominal exam is also quite benign. Questionable right lower lung infiltrates on CT of the abdomen. Start patient on cefepime 1 g IV every 12 hours. Obtain sputum cultures. Monitor fingersticks and cover with sliding scale coverage. Hold oral hypoglycemics and long-acting insulin. We will give trial of diet to see if patient is still persistently nauseous and vomiting. Hold diuretics and potassium supplements. As to his tongue lesion, I am unsure of the etiology. It does not look to be traumatic or infectious at all. Consult ENT for further input. DVT prophylaxis with heparin. GI prophylaxis on famotidine. Discussed Condition With patient, nurse DC pending improvement. On abx , pna, with ABDIEL Nita Verma MD Feb 10, 2018 08:11
[2018-02-10] MEDS: INSULIN ASPART SUPPLEMENTAL SCALE SQ SCH ×4 (08:52→19:57)
[2018-02-10] MEDS: FAMOTIDINE 20 MG TAB PO SCH ×2 (08:53→19:55)
[2018-02-10] MEDS: SODIUM CHLORIDE 0.9% FLUSH 10 ML FLUSH IV FLUSH SCH ×2 (08:53→19:55)
[2018-02-10] MEDS: FERROUS SULFATE 300 MG /5ML UDC PO SCH (08:53)
[2018-02-10] MEDS: SODIUM CHLOR 0.9% 1000 ML INJ 1,000 ML IV SCH (14:30)
[2018-02-10] MEDS: ATORVASTATIN 40 MG TAB PO SCH (19:55)
[2018-02-10] MEDS: QUEtiapine FUMARATE 25 MG TAB PO SCH (19:55)
[2018-02-11] VITALS (8 sets, daily range): BP systolic 116–156; BP diastolic 61–78; PULSE 82–92; RESP 18–21; TEMP 97.9–98.6; O2SAT 98–99
[2018-02-11] MEDS: SODIUM CHLOR 0.9% 1000 ML INJ 1,000 ML IV SCH ×2 (04:32→20:20)
[2018-02-11 06:05] LABS: AUTOMATED NEUTROPHIL # 3.2 TH/MM3 (1.8-7.7); BASOPHIL % 0.7 % (0.0-2.0); EOSINOPHIL # 0.1 TH/MM3 (0-0.4); HEMOGLOBIN 11.6 GM/DL (13.0-17.0); LYMPH % 30.2 % (9.0-44.0); LYMPHOCYTE # 1.6 TH/MM3 (1.0-4.8); MEAN CELL VOLUME 89.9 FL (80.0-100.0); MEAN CORPUSCULAR HEMOGLOBIN 29.6 PG (27.0-34.0); MEAN PLATELET VOLUME 9.5 FL (7.0-11.0); MONO % 8.5 % (0.0-8.0); MONOCYTE # 0.5 TH/MM3 (0-0.9); NEUT % 58.6 % (16.0-70.0); PLATELET COUNT 218 TH/MM3 (150-450); RED CELL DISTRIBUTION WIDTH 13.7 % (11.6-17.2); WHITE BLOOD COUNT 5.4 TH/MM3 (4.0-11.0)
[2018-02-11] MEDS: DEXT 5%-NACL 0.45% 1000 ML INJ 1,000 ML IV SCH (06:06)
[2018-02-11 06:38] LABS: BICARBONATE 24.7 MEQ/L (21.0-32.0); CALCIUM 8.6 MG/DL (8.5-10.1); CREATININE 1.94 MG/DL (0.60-1.30)
--- NOTE | 2018-02-11 08:38 | HHI.PR ---
Subjective Remarks Associated in the morning and could not eat. Did not vomited yet. Has no appetite. With some cough nonproductive. No fever or chills. Feels tired. Objective Vitals Vital Signs Date Time Temp Pulse Resp B/P (MAP) Pulse Ox O2 Delivery O2 Flow Rate FiO2 02/11/18 08:00 98.6 86 18 124/78 (93) 99 02/11/18 04:00 98.2 92 21 137/77 (97) 98 02/11/18 04:00 82 02/11/18 00:04 82 02/11/18 00:00 97.9 87 21 116/61 (79) 99 02/10/18 20:00 98.4 84 21 124/62 (82) 99 02/10/18 16:17 97.7 83 18 156/83 (107) 100 02/10/18 12:36 98.1 89 18 114/57 (76) 98 02/10/18 10:18 84 I/O 02/10/18 02/10/18 02/10/18 02/11/18 02/11/18 02/11/18 07:00 15:00 23:00 07:00 15:00 23:00 Intake Total 1100 ml 100 ml 1840 ml Output Total 2700 ml 1850 ml Balance -1600 ml 100 ml -10 ml Intake Oral 840 ml IV Total 1100 ml 100 ml 1000 ml Output Urine Total 2700 ml 1850 ml # Voids 1 # Bowel Movements 0 Result Diagram: 02/11/18 0425 02/11/18 0425 Imaging Last Impressions Abdomen/Pelvis CT 02/08/18 1641 Signed Impressions: Service Date/Time: January 16:53 - CONCLUSION: Groundglass infiltrate the right lung base. The abdomen and pelvis is otherwise unremarkable. Ahmet Sheikh MD Chest X-Ray 02/08/18 0000 Signed Impressions: Service Date/Time: January 19:19 - CONCLUSION: Mild right base infiltrate. Gary Rizzo MD Objective Remarks GENERAL: This is a well-nourished, well-developed patient, in no apparent distress. SKIN: No rashes, ecchymoses or lesions. Cool and dry. HEAD: Atraumatic. Normocephalic. No temporal or scalp tenderness. EYES: No scleral icterus. No injection or drainage. ENT: Nose without bleeding, purulent drainage or septal hematoma. Airway patent. Right lateral tongue with lesion which looks almost as though a piece of the tongue is removed. NECK: Trachea midline. No JVD Supple, nontender, no meningeal signs. CARDIOVASCULAR: Regular rate and rhythm without murmurs, gallops, or rubs. RESPIRATORY: Clear to auscultation. Breath sounds equal bilaterally. No wheezes , rales, or rhonchi. GASTROINTESTINAL: Abdomen soft, non-tender, nondistended. No guarding. MUSCULOSKELETAL: Extremities without clubbing, cyanosis, or edema. No calf tenderness. NEUROLOGICAL: Awake and alert. Motor and sensory grossly within normal limits. Normal speech. A/P Assessment and Plan Acute renal failure Nausea/vomiting for 1 week. Possibly gastritis. Right lateral tongue lesion. Etiology unclear. Smoker. Painless lesion. Question whether this could be related to any underlying malignancy Dehydration secondary to GI loss Pneumonia lobar mid right lobar PNA . CXR reviewed with infiltrated right mid lobe . Suspect underlying infection causing his nausea vomiting. In a diabetic. Continue IV abx Hypertension Diabetes History of [place]. Status post CABG August 2017. Chronic systolic heart failure. EF of 40% by echo in July 2017. Peripheral arterial disease of lower extremities per patient. Hyperlipidemia Depression GERD Osteoarthritis IV hydration with normal saline at 50 cc/h. Also start on D5 half normal saline at 42 cc/h concomitantly. Watch for fluid overload in a heart failure patient. We will follow renal function post hydration. Hold losartan due to renal failure. Patient also has not made any urine since arrival to the hospital about 7 hours ago. We will monitor for urine output. UA normal Chest x-ray reviewed right mid infiltrate Abdomen and pelvis CT personally reviewed. No evidence of acute pancreatitis/ gallstones. Patient's abdominal exam is also quite benign. Questionable right lower lung infiltrates on CT of the abdomen. Start patient on cefepime 1 g IV every 12 hours. Obtain sputum cultures. Add IS Monitor fingersticks and cover with sliding scale coverage. Hold oral hypoglycemics and long-acting insulin. We will give trial of diet to see if patient is still persistently nauseous and vomiting. Hold diuretics and potassium supplements. As to his tongue lesion, I am unsure of the etiology. It does not look to be traumatic or infectious at all. Consult ENT for further input or can follow as OP DVT prophylaxis with heparin. GI prophylaxis on famotidine. Discussed Condition With patient, nurse DC pending improvement. On abx , pna, with Nita Dowling MD Feb 11, 2018 08:38
[2018-02-11] MEDS: CEFEPIME INJ 1,000 MG in SODIUM CHLORIDE 0.9% INJ 100 ML IV SCH ×2 (08:49→20:19)
[2018-02-11] MEDS: FOLIC ACID 1 MG TAB PO SCH (08:51)
[2018-02-11] MEDS: INSULIN ASPART SUPPLEMENTAL SCALE SQ SCH ×4 (08:51→20:20)
[2018-02-11] MEDS: FERROUS SULFATE 300 MG /5ML UDC PO SCH (08:51)
[2018-02-11] MEDS: MULTIVITAMINS/MINERALS THERAPEUTIC TAB PO SCH (08:51)
[2018-02-11] MEDS: SODIUM CHLORIDE 0.9% FLUSH 10 ML FLUSH IV FLUSH SCH ×2 (08:52→20:19)
[2018-02-11] MEDS: FAMOTIDINE 20 MG TAB PO SCH ×2 (08:52→20:19)
[2018-02-11] MEDS: HEPARIN SODIUM - SQ 10,000 UNITS/ML VIAL SQ SCH ×2 (08:52→20:19)
[2018-02-11] MEDS: ATENOLOL 25 MG TAB PO SCH (08:52)
[2018-02-11] MEDS: MAGNESIUM HYDROXIDE SUSP 30 ML CUP PO PRN (16:37)
[2018-02-11] MEDS: ATORVASTATIN 40 MG TAB PO SCH (20:18)
[2018-02-11] MEDS: QUEtiapine FUMARATE 25 MG TAB PO SCH (20:19)
[2018-02-12] VITALS (8 sets, daily range): BP systolic 127–152; BP diastolic 67–79; PULSE 67–92; RESP 16–20; TEMP 98.1–98.7; O2SAT 97–100
[2018-02-12] MEDS: DEXT 5%-NACL 0.45% 1000 ML INJ 1,000 ML IV SCH (06:07)
[2018-02-12] MEDS: CEFEPIME INJ 1,000 MG in SODIUM CHLORIDE 0.9% INJ 100 ML IV SCH ×2 (08:59→20:56)
[2018-02-12] MEDS: INSULIN ASPART SUPPLEMENTAL SCALE SQ SCH ×4 (09:00→21:04)
[2018-02-12] MEDS: MAGNESIUM HYDROXIDE SUSP 30 ML CUP PO PRN (09:00)
[2018-02-12] MEDS: MULTIVITAMINS/MINERALS THERAPEUTIC TAB PO SCH (09:01)
[2018-02-12] MEDS: FERROUS SULFATE 300 MG /5ML UDC PO SCH (09:01)
[2018-02-12] MEDS: HEPARIN SODIUM - SQ 10,000 UNITS/ML VIAL SQ SCH ×2 (09:01→20:58)
[2018-02-12] MEDS: FOLIC ACID 1 MG TAB PO SCH (09:01)
[2018-02-12] MEDS: FAMOTIDINE 20 MG TAB PO SCH ×2 (09:01→20:56)
[2018-02-12] MEDS: SODIUM CHLORIDE 0.9% FLUSH 10 ML FLUSH IV FLUSH SCH ×2 (09:01→20:57)
[2018-02-12] MEDS: ATENOLOL 25 MG TAB PO SCH (09:01)
--- NOTE | 2018-02-12 10:50 | PD.CONS ---
[facility] Service Nephrology Consult Requested By Dr. Verma Reason for Consult Acute renal failure due to dehydration Primary Care Physician Unknown History of Present Illness Patient is 62-year-old -German male with history of diabetes for more than 10 years on insulin, hypertension, coronary artery disease status post CABG who was admitted over the weekend with intractable nausea and vomiting, his baseline creatinine is around 1.17 and he was admitted with a creatinine of 4.5, with hydration it has declined to 1.9 today, patient denies any dysuria or burning, prostate problems, kidney stone. 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 Review of Systems Constitutional: COMPLAINS OF: Fatigue Gastrointestinal: COMPLAINS OF: Nausea, Vomiting Past Family Social History Allergies: Coded Allergies: No Known Allergies (Verified , 07/20/17) Past Medical History Hypertension Diabetes History of [place] , s/p cabg Aug 2017 CHF with EF 40% by echo in jul 2017 PAD of [place] Hyperlipidemia Depression GERD Osteoarthritis Past Surgical History Left arm surgery for MRSA infection Coronary artery bypass surgery Right toe amputation Coronary angiogram Reported Medications Reported Meds & Active Scripts Active Famotidine 20 Mg Tab 20 Mg PO BID Adult Aspirin EC Low Strength (Aspirin) 81 Mg Tabec 81 Mg PO DAILY Atorvastatin (Atorvastatin Calcium) 40 Mg Tab 40 Mg PO HS Reported Ferrous Gluconate 324 Mg (37.5 Mg Iron) Tab 324 Mg PO DAILY Atenolol 25 Mg Tab 25 Mg PO DAILY Folic Acid 1 Mg Tablet 1 Mg PO DAILY Tresiba Flextouch Pen Inj (Insulin Degludec Inj) 300 unit/3 ML Pen 15 Units SQ HS Jardiance (Empagliflozin) 10 Mg Tab 10 Mg PO DAILY Januvia (Sitagliptin Phosphate) 50 Mg Tab 50 Mg PO BID Lasix (Furosemide) 40 Mg Tab 40 Mg PO DAILY Losartan (Losartan Potassium) 25 Mg Tab 25 Mg PO DAILY Toprol XL (Metoprolol Succinate) 50 Mg Tab 50 Mg PO BID Potassium Chloride ER (Potassium Chloride) 20 Meq Tab 20 Meq PO DAILY Seroquel (Quetiapine Fumarate) 25 Mg Tab 25 Mg PO HS One Daily Complete (Multivitamin with Minerals) 1 Each Tablet 1 Tab PO DAILY Lantus Inj (Insulin Glargine) 1,000 Unit/10 Ml Vial 10 Units SQ HS Novolog Inj (Insulin Aspart) 1,000 Unit/10 Ml Vial 0 SQ ACHS Sliding Scale as directed. Active Ordered Medications Current Medications Medications (Trade) Dose Ordered Sig/Omero Route Start Time Stop Time Status Last Admin Sodium Chloride 1,000 ml @ 50 mls/hr Q20H IV 02/08/18 17:50 02/11/18 20:20 (NS Flush) 2 ml UNSCH PRN IV FLUSH 02/08/18 18:00 (NS Flush) 2 ml BID IV FLUSH 02/08/18 21:00 02/08/18 21:15 (Zofran Inj) 4 mg Q6H PRN IVP 02/08/18 18:00 (Narcan Inj) 0.4 mg UNSCH PRN IV PUSH 02/08/18 18:00 (D50w (Vial) Inj) 50 ml UNSCH PRN IV PUSH 02/08/18 18:00 (Glucagon Inj) 1 mg UNSCH PRN OTHER 02/08/18 18:00 (NovoLOG SUPPLEMENTAL SCALE) 1 ACHS SLIDING SCALE SQ 02/08/18 21:00 02/12/18 09:00 Dextrose/Sodium Chloride 1,000 ml @ 42 mls/hr [id number] IV 02/08/18 18:00 02/12/18 06:07 (Tenormin) 25 mg DAILY PO 02/09/18 09:00 02/12/18 09:01 (Lipitor) 40 mg HS PO 02/08/18 21:00 02/11/18 20:18 (Pepcid) 10 mg BID PO 02/08/18 21:00 02/12/18 09:01 (Folate) 1 mg DAILY PO 02/09/18 09:00 02/12/18 09:01 (SEROquel) 25 mg HS PO 02/08/18 21:00 02/11/18 20:19 (Ferrous Sulfate Liq) 195 mg DAILY PO 02/09/18 09:00 02/12/18 09:01 (Theragran M Tab) 1 tab DAILY PO 02/09/18 09:00 02/12/18 09:01 Cefepime HCl 1000 mg/Sodium Chloride 100 ml @ 200 mls/hr Q12H IV 02/08/18 20:00 02/12/18 08:59 (Pill Splitter) 1 ea UNSCH PRN OTHER 02/08/18 20:00 (Heparin Inj) 5,000 units Q12HR SQ 02/09/18 09:00 02/12/18 09:01 (Milk Of Danielle Longoria) 30 ml DAILY PRN PO 02/10/18 23:15 02/12/18 09:00 Family History Noncontributory Social History History of smoking in the past, used to drink alcohol Physical Exam Vital Signs Vital Signs Date Time Temp Pulse Resp B/P (MAP) Pulse Ox O2 Delivery O2 Flow Rate FiO2 02/12/18 00:00 78 02/12/18 00:00 98.6 92 16 152/74 (100) 98 02/11/18 20:12 98.4 83 18 156/76 (102) 98 02/11/18 20:00 83 02/11/18 16:00 98.1 83 18 133/74 (93) 98 02/11/18 12:00 98.1 84 18 120/68 (85) 98 Physical Exam GENERAL: Well-nourished, well-developed patient. SKIN: Warm and dry. HEAD: Normocephalic. EYES: No scleral icterus. No injection or drainage. NECK: Supple, trachea midline. No JVD or lymphadenopathy. CARDIOVASCULAR: Regular rate and rhythm without murmurs, gallops, or rubs. RESPIRATORY: Breath sounds equal bilaterally. No accessory muscle use. GASTROINTESTINAL: Abdomen soft, non-tender, nondistended. EXTREMITIES: No cyanosis, or edema. Right foot ulceration on top, right toe previous amputation NEUROLOGICAL: Awake, alert, and oriented x 3. Non-focal. Result Diagram: 02/11/18 0425 02/11/18 0425 Imaging Last Impressions Abdomen/Pelvis CT 02/08/18 1641 Signed Impressions: Service Date/Time: January 16:53 - CONCLUSION: Groundglass infiltrate the right lung base. The abdomen and pelvis is otherwise unremarkable. Ahmet Sheikh MD Chest X-Ray 02/08/18 0000 Signed Impressions: Service Date/Time: January 19:19 - CONCLUSION: Mild right base infiltrate. Gary Rizzo MD Assessment and Plan Problem List: (1) ABDIEL (acute kidney injury) ICD Codes: N17.9 - Acute kidney failure, unspecified Plan: Patient has receive IV hydration and creatinine has declined indicating prerenal azotemia Getting IV fluid D5 half-normal saline at 42 cc an hour and normal saline at 50 cc an hour Check urine for protein Patient is diabetic with a baseline creatinine around 1.17 Monitor BMP Avoid nephrotoxic agent (2) Nausea & vomiting ICD Codes: R11.2 - Nausea with vomiting, unspecified Status: Acute Plan: Patient has improvement and with IV hydration renal function improved (3) Diabetes mellitus ICD Codes: E11.9 - Type 2 diabetes mellitus without complications Status: Chronic Plan: On insulin (4) CAD (coronary artery disease) ICD Codes: I25.10 - Atherosclerotic heart disease of [place] coronary artery without angina pectoris Plan: Status post coronary artery bypass graft Problem Qualifiers (1) Nausea & vomiting: (2) Diabetes mellitus: Merna Cazares MD Feb 12, 2018 10:50
[2018-02-12 14:38] LABS: BICARBONATE 24.3 MEQ/L (21.0-32.0); CALCIUM 8.5 MG/DL (8.5-10.1); CREATININE 1.65 MG/DL (0.60-1.30)
--- NOTE | 2018-02-12 18:41 | HHI.PR ---
Subjective Remarks Patient states he feels well and he is glad to know that his creatinine is trending downward nicely. He has no new complaints today. Objective Vitals Vital Signs Date Time Temp Pulse Resp B/P (MAP) Pulse Ox O2 Delivery O2 Flow Rate FiO2 02/12/18 16:33 98.3 83 20 147/75 (99) 100 02/12/18 16:00 86 02/12/18 12:00 98.7 78 18 136/79 (98) 99 02/12/18 08:00 84 02/12/18 08:00 98.4 81 18 140/75 (96) 99 02/12/18 00:00 78 02/12/18 00:00 98.6 92 16 152/74 (100) 98 02/11/18 20:12 98.4 83 18 156/76 (102) 98 02/11/18 20:00 83 I/O 02/11/18 02/11/18 02/11/18 02/12/18 02/12/18 02/12/18 07:00 15:00 23:00 07:00 15:00 23:00 Intake Total 1840 ml 360 ml 1673 ml Output Total 1850 ml 1100 ml 950 ml Balance -10 ml -740 ml 1673 ml -950 ml Intake Oral 840 ml 360 ml IV Total 1000 ml 1673 ml Output Urine Total 1850 ml 1100 ml 950 ml # Bowel Movements 0 1 Result Diagram: 02/11/18 0425 02/12/18 1337 Objective Remarks GENERAL: Well-nourished, well-developed patient. SKIN: Warm and dry. HEAD: Abnormal density on right side of tongue measuring 1 x 0.5 cm with central fissure, not bleeding EYES: No scleral icterus. No injection or drainage. NECK: Supple, trachea midline. No JVD or lymphadenopathy. CARDIOVASCULAR: Regular rate and rhythm without murmurs, gallops, or rubs. RESPIRATORY: Breath sounds equal bilaterally. No accessory muscle use. GASTROINTESTINAL: Abdomen soft, non-tender, nondistended. EXTREMITIES: No cyanosis, or edema. NEUROLOGICAL: Awake, alert, and oriented x 3. Non-focal. A/P Problem List: (1) ABDIEL (acute kidney injury) ICD Code: N17.9 - Acute kidney failure, unspecified Assessment and Plan Acute renal failure Caused by dehydration secondary to nausea and vomiting 1 week Consistently trending downward creatinine level, currently 1.65 Losartan held due to renal failure We will likely discontinue IV fluids tomorrow if creatinine goes down again, expect discharge tomorrow Pneumonia Right lower lobe on chest x-ray with infiltrates to the right mid lobe Continue IV cefepime while hospitalized Lesion of tongue Abnormal density on right side of tongue with central fissure ENT consulted last Monday without a visit ENT reconsulted today, requesting evaluation and treatment plan Type 2 diabetes Sliding scale insulin coverage with Accu-Cheks Diabetic diet h/o CAD CABG August 2017 Chronic systolic heart failure Ejection fraction 40% in July 2017 Hypertension, depression, GERD, osteoarthritis Continue home meds, except losartan DVT prophylaxis Heparin Discharge planning Likely discharge tomorrow if creatinines are within normal limits Marin Sutherland MD Feb 12, 2018 18:40
[2018-02-12] MEDS: ATORVASTATIN 40 MG TAB PO SCH (20:56)
[2018-02-12] MEDS: QUEtiapine FUMARATE 25 MG TAB PO SCH (20:56)
[2018-02-12] MEDS: SODIUM CHLOR 0.9% 1000 ML INJ 1,000 ML IV SCH (20:59)
[2018-02-13] VITALS (10 sets, daily range): BP systolic 96–183; BP diastolic 60–88; PULSE 69–87; RESP 16–20; TEMP 97.7–98.9; O2SAT 98–100
[2018-02-13 08:10] LABS: BICARBONATE 24.3 MEQ/L (21.0-32.0); CALCIUM 8.4 MG/DL (8.5-10.1)
[2018-02-13 08:11] LABS: CREATININE 1.51 MG/DL (0.60-1.30)
[2018-02-13] MEDS: FOLIC ACID 1 MG TAB PO SCH (08:51)
[2018-02-13] MEDS: CEFEPIME INJ 1,000 MG in SODIUM CHLORIDE 0.9% INJ 100 ML IV SCH ×2 (08:52→20:51)
[2018-02-13] MEDS: FAMOTIDINE 20 MG TAB PO SCH ×2 (08:52→20:52)
[2018-02-13] MEDS: FERROUS SULFATE 300 MG /5ML UDC PO SCH (08:52)
[2018-02-13] MEDS: MULTIVITAMINS/MINERALS THERAPEUTIC TAB PO SCH (08:52)
[2018-02-13] MEDS: HEPARIN SODIUM - SQ 10,000 UNITS/ML VIAL SQ SCH ×2 (08:53→20:52)
[2018-02-13] MEDS: INSULIN ASPART SUPPLEMENTAL SCALE SQ SCH ×4 (08:53→21:21)
[2018-02-13] MEDS: SODIUM CHLORIDE 0.9% FLUSH 10 ML FLUSH IV FLUSH SCH ×2 (08:53→20:52)
[2018-02-13] MEDS: ATENOLOL 25 MG TAB PO SCH (08:53)
[2018-02-13] MEDS: DEXT 5%-NACL 0.45% 1000 ML INJ 1,000 ML IV SCH (08:54)
[2018-02-13] MEDS: SODIUM CHLOR 0.9% 1000 ML INJ 1,000 ML IV SCH (08:54)
--- NOTE | 2018-02-13 10:58 | MB ---
cc: Les Escobar MD DATE: 02/13/2018 CHIEF COMPLAINT: Right tongue lesion. HISTORY OF PRESENT ILLNESS: The patient is a pleasant 62-year-old male with a history of recent renal failure, who has had heavy nausea and vomiting from a week ago who was noted to have a right tongue laceration. The patient notes that he did not feel this at all prior to the vomiting a week ago. The patient stopped tobacco usage 30 years ago. PHYSICAL EXAMINATION: On examination, the patient has a clean right lateral tongue laceration that appears to be healing well and no areas suspicious for cancer around it, specifically no fungating lesion and no area of induration or thickening surrounding that would be consistent with carcinoma. The rest of the flexible fiberoptic laryngoscopy was within normal limits. ASSESSMENT: The patient has likely a right tongue laceration from vomiting a week ago. PLAN: I recommend the patient do salt water gargles and follow up with ENT in 4-6 weeks. If there is any residual issues in 4-6 weeks, may consider biopsy if any suspicion for cancer; however, that is very unlikely at this time given the history. Thank you for this consultation. Les Escobar MD PCC/KD , 10:28 AM , 10:57 AM
--- NOTE | 2018-02-13 15:08 | HHI.PR ---
Subjective Remarks Patient states he feels better but is not comfortable going home as early as today. He feels mentally prepared to go home tomorrow. Objective Vitals Vital Signs Date Time Temp Pulse Resp B/P (MAP) Pulse Ox O2 Delivery O2 Flow Rate FiO2 02/13/18 12:00 97.9 87 20 130/71 (90) 99 02/13/18 08:00 98.1 85 20 123/67 (85) 98 02/13/18 08:00 84 02/13/18 04:00 98.0 70 20 133/74 (93) 98 02/13/18 03:38 80 02/13/18 00:00 98.9 69 19 130/69 (89) 98 02/12/18 23:53 81 02/12/18 21:00 98.1 67 17 127/67 (87) 97 02/12/18 19:54 83 02/12/18 16:33 98.3 83 20 147/75 (99) 100 02/12/18 16:00 86 I/O 02/12/18 02/12/18 02/12/18 02/13/18 02/13/18 02/13/18 07:00 15:00 23:00 07:00 15:00 23:00 Intake Total 1673 ml 975 ml 480 ml Output Total 950 ml 1800 ml 650 ml Balance 1673 ml -950 ml -825 ml -170 ml Intake Oral 975 ml 480 ml IV Total 1673 ml Output Urine Total 950 ml 1800 ml 650 ml # Bowel Movements 1 0 Result Diagram: 02/11/18 0425 02/13/18 0603 Objective Remarks GENERAL: Well-nourished, well-developed patient. SKIN: Warm and dry. HEAD: Abnormal density on right side of tongue measuring 1 x 0.5 cm with central fissure, not bleeding EYES: No scleral icterus. No injection or drainage. NECK: Supple, trachea midline. No JVD or lymphadenopathy. CARDIOVASCULAR: Regular rate and rhythm without murmurs, gallops, or rubs. RESPIRATORY: Breath sounds equal bilaterally. No accessory muscle use. GASTROINTESTINAL: Abdomen soft, non-tender, nondistended. EXTREMITIES: No cyanosis, or edema. NEUROLOGICAL: Awake, alert, and oriented x 3. Non-focal. A/P Problem List: (1) ABDIEL (acute kidney injury) ICD Code: N17.9 - Acute kidney failure, unspecified Assessment and Plan Acute renal failure Caused by dehydration secondary to nausea and vomiting 1 week Consistently trending downward creatinine level, currently 1.65 Losartan held due to renal failure Hold IV fluids today, recheck creatinine in the morning, expect discharge in the morning if creatinine level is acceptable Pneumonia Right lower lobe on chest x-ray with infiltrates to the right mid lobe Continue IV cefepime while hospitalized Switch to p.o. medication for 1 more week as outpatient Lesion of tongue Abnormal density on right side of tongue with central fissure ENT feels this lesion is fairly low suspicion for cancer Recommends outpatient follow-up Appreciate ENT consult Type 2 diabetes Sliding scale insulin coverage with Accu-Cheks Diabetic diet h/o CAD CABG August 2017 Chronic systolic heart failure Ejection fraction 40% in July 2017 Hypertension, depression, GERD, osteoarthritis Continue home meds, except losartan DVT prophylaxis Heparin Discharge planning Expectant discharge tomorrow morning Marin Sutherland MD February 13, 2018 15:08
[2018-02-13] MEDS: ATORVASTATIN 40 MG TAB PO SCH (20:52)
[2018-02-13] MEDS: QUEtiapine FUMARATE 25 MG TAB PO SCH (20:52)
[2018-02-14 04:00] VITALS: BP 131/71; PULSE 86; RESP 18; TEMP 98.2; O2SAT 99
[2018-02-14] MEDS: SODIUM CHLOR 0.9% 1000 ML INJ 1,000 ML IV SCH (05:55)
[2018-02-14] MEDS: INSULIN ASPART SUPPLEMENTAL SCALE SQ SCH ×2 (08:00→12:00)
[2018-02-14] MEDS: CEFEPIME INJ 1,000 MG in SODIUM CHLORIDE 0.9% INJ 100 ML IV SCH (08:00)
[2018-02-14 08:19] VITALS: BP 114/63; PULSE 86; RESP 20; TEMP 98.4; O2SAT 99
[2018-02-14] MEDS: SODIUM CHLORIDE 0.9% FLUSH 10 ML FLUSH IV FLUSH SCH (09:00)
[2018-02-14] MEDS: ATENOLOL 25 MG TAB PO SCH (09:00)
[2018-02-14] MEDS: FAMOTIDINE 20 MG TAB PO SCH (09:52)
[2018-02-14] MEDS: FERROUS SULFATE 300 MG /5ML UDC PO SCH (09:52)
[2018-02-14] MEDS: FOLIC ACID 1 MG TAB PO SCH (09:52)
[2018-02-14] MEDS: MULTIVITAMINS/MINERALS THERAPEUTIC TAB PO SCH (09:52)
[2018-02-14] MEDS: HEPARIN SODIUM - SQ 10,000 UNITS/ML VIAL SQ SCH (09:58)
[2018-02-14 11:58] VITALS: BP 124/74; PULSE 85; RESP 20; TEMP 98.5; O2SAT 100
[2018-02-14 12:08] LABS: BICARBONATE 24.6 MEQ/L (21.0-32.0); CALCIUM 8.5 MG/DL (8.5-10.1); CREATININE 1.44 MG/DL (0.60-1.30)
[2018-02-14] MEDS ORDERED: CEPH-460 PO (12:16)
--- NOTE | 2018-02-14 12:19 | HHI.DS ---
Discharge Summary Admission Date Feb 08, 2018 at 17:47 Discharge Date: February 14, 2018 Admitting Diagnosis Acute kidney injury (1) ABDIEL (acute kidney injury) ICD Code: N17.9 - Acute kidney failure, unspecified Procedures none Brief History - From Admission History from patient, ER physician communication, and review of medical records. Patient reported a for the past 1 week, he has been having constant nausea and vomiting. He states that whenever he eats what come straight back out. He denies any pain on swallowing food. He did have some diffuse abdominal pain after several bouts of vomiting. He thinks that his vomitus is a little bit of coffee-ground color. He denies any constipation. He reports that he did have diarrhea only once in the past 1 week. No black stools or red stools. Denies any fever. Patient states that he did continue to take his medications for diabetes and high blood pressure during these episodes. However because he was vomiting constantly, he does not think that he was able to keep any medications down. He did not particularly check blood sugars at home. However this morning, his sister was there checked his blood sugar and found it to be 217. He states that he lives alone and during this past 1 week because he was so sick and weak, he was mostly sitting on his chair. He did not call any of his sisters. Therefore they got worried and came down from [place] to check on him and brought him to the hospital today. Patient also complained about his tongue having a blister which started last week or Monday. He states that this blister started the same time with episodes of nausea and vomiting. He reports that initially when it came out, there was some pain. However now the pain is not there except that he just knows there is a little knot on the right side of his tongue. denies loss of weight no pain on swallowing food CBC/BMP: 02/11/18 0425 02/14/18 1111 Significant Findings Laboratory Tests Test 02/12/18 13:37 02/13/18 06:03 02/14/18 11:11 Blood Urea Nitrogen 22 MG/DL (7-18) 19 MG/DL (7-18) Creatinine 1.65 MG/DL (0.60-1.30) 1.51 MG/DL (0.60-1.30) 1.44 MG/DL (0.60-1.30) Random Glucose 216 MG/DL (74-106) 150 MG/DL (74-106) 199 MG/DL (74-106) Chloride Level 110 MEQ/L (98-107) 111 MEQ/L (98-107) 110 MEQ/L (98-107) Estimat Glomerular Filtration Rate 51 ML/MIN (>89) 57 ML/MIN (>89) 60 ML/MIN (>89) Calcium Level 8.4 MG/DL (8.5-10.1) PE at Discharge GENERAL: Well-nourished, well-developed patient. SKIN: Warm and dry. HEAD: Abnormal density on right side of tongue measuring 1 x 0.5 cm with central fissure, not bleeding EYES: No scleral icterus. No injection or drainage. NECK: Supple, trachea midline. No JVD or lymphadenopathy. CARDIOVASCULAR: Regular rate and rhythm without murmurs, gallops, or rubs. RESPIRATORY: Breath sounds equal bilaterally. No accessory muscle use. GASTROINTESTINAL: Abdomen soft, non-tender, nondistended. EXTREMITIES: No cyanosis, or edema. NEUROLOGICAL: Awake, alert, and oriented x 3. Non-focal. Hospital Course This is a 62-year-old male who was admitted on February 08 with acute kidney injury following a one-week period of nausea and vomiting and poor oral intake. He was treated for dehydration with IV fluids and his renal impairment began to improve. The underlying cause of his nausea and vomiting seems to be related to finding of right lower lobe pneumonia. He has received treatment for his pneumonia with 1 week of IV cefepime. His current creatinine level is nearing normal parameters. He has remained afebrile. There is one more result pending from this morning but his creatinine is at a level that is safe enough for discharge. He should switch to p.o. Keflex to finish treatment for his pneumonia. He is safe to be at home and can follow up with his primary care doctor in 1-2 weeks. Pt Condition on Discharge: Good Discharge Disposition: Discharge Home Discharge Time: <= 30 minutes Discharge Instructions DIET: Follow Instructions for: Diabetic Diet Activities you can perform: Weight Bearing as Marin Cortez MD February 14, 2018 12:19
== END 2018-02-14 15:31 | disposition home or self-care (01) | DRG 682 ==
LOC: NEPC 12:02 → NEDA 17:47 → N05B 18:33
PROVIDERS: ADMIT Family Medicine; ATTEND Family Medicine
DX: N17.9 Acute kidney failure, unspecified (principal); J18.9 Pneumonia, unspecified organism; I11.0 Hypertensive heart disease with heart failure; E11.51 Type 2 diabetes mellitus with diabetic peripheral angiopathy without gangrene; I50.22 Chronic systolic (congestive) heart failure; E86.0 Dehydration; R11.2 Nausea with vomiting, unspecified; I25.10 Atherosclerotic heart disease of native coronary artery without angina pectoris; E78.5 Hyperlipidemia, unspecified; K21.9 Gastro-esophageal reflux disease without esophagitis; K13.79 Other lesions of oral mucosa; F32.9 Major depressive disorder, single episode, unspecified; M19.90 Unspecified osteoarthritis, unspecified site; Z79.84 Long term (current) use of oral hypoglycemic drugs; Z95.1 Presence of aortocoronary bypass graft; I25.2 Old myocardial infarction; Z86.14 Personal history of Methicillin resistant Staphylococcus aureus infection; Z87.891 Personal history of nicotine dependence; Z79.4 Long term (current) use of insulin
CPT/HCPCS: 71045; 74176; 80048; 80053; 81001; 82010; 82550; 82948; 83690; 84484; 85025; 85610; 85730; 93005; 96361; 96374; J0692; J1644; J1815; J2405; J7030

== ENCOUNTER 2018-03-01 16:34 | Observation (INO) | END 2018-03-03 18:51 | disposition home or self-care (01) | DX: E11.649 Type 2 diabetes mellitus with hypoglycemia without coma (principal); I25.10 Atherosclerotic heart disease of native coronary artery without angina pectoris; I13.0 Hypertensive heart and chronic kidney disease with heart failure and stage 1 through stage 4 chronic kidney disease, or unspecified chronic kidney disease; I50.9 Heart failure, unspecified; E11.22 Type 2 diabetes mellitus with diabetic chronic kidney disease; N18.3 Chronic kidney disease, stage 3 (moderate); E78.5 Hyperlipidemia, unspecified; E11.51 Type 2 diabetes mellitus with diabetic peripheral angiopathy without gangrene; R94.31 Abnormal electrocardiogram [ECG] [EKG]; N17.9 Acute kidney failure, unspecified; H54.7 Unspecified visual loss; K21.9 Gastro-esophageal reflux disease without esophagitis; F32.9 Major depressive disorder, single episode, unspecified; M19.90 Unspecified osteoarthritis, unspecified site; Z95.1 Presence of aortocoronary bypass graft; Z79.899 Other long term (current) drug therapy; Z79.4 Long term (current) use of insulin | CPT/HCPCS: 76775; 80048; 80053; 82948; 83036; 85025; 93005; 95819; 96360; 96361; 96372; 99285; G0378; J1644; J7030 ==

== ENCOUNTER 2018-10-14 21:59 | Inpatient (IN) ==
[2018-10-14] MEDS ORDERED: Sodium Chlor 0.9% Inj 500 ML IV.SIG ONE (22:56)
[2018-10-14 23:53] LABS: Baso # (Auto) 0.2 th/mm3 (0.0-0.2); Eos % (Auto) 0.2 % (0.0-4.0); Hemoglobin 8.2 gm/dL (13.0-17.0); Lymph # (Auto) 0.5 th/mm3 (1.0-4.8); Lymph % (Auto) 2.3 % (9.0-44.0); Mean Corpuscular HGB Conc 32.9 % (32.0-36.0); Mean Corpuscular Hemoglobin 30.6 pg (27.0-34.0); Mean Platelet Volume 8.9 fL (7.0-11.0); Mono # (Auto) 1.2 th/mm3 (0.0-0.9); Neut # (Auto) 21.4 th/mm3 (1.8-7.7); Neut % (Auto) 91.5 % (16.0-70.0); Platelet Count 296 th/mm3 (150-450); Red Blood Count 2.69 mil/mm3 (4.50-5.90); Red Cell Distribution Width 14.5 % (11.6-17.2); White Blood Count 23.4 th/mm3 (4.0-11.0)
[2018-10-15 00:12] LABS: Alanine Aminotransferase 49 U/L (12-78); Anion Gap 12 meq/L (5-15); Aspartate Aminotransferase 94 U/L (15-37); Blood Urea Nitrogen 59 mg/dL (7-18); Calcium 8.9 mg/dL (8.5-10.1); Carbon Dioxide 23.6 meq/L (21.0-32.0); Chloride 96 meq/L (98-107); Glomerular Filtration Rate 40 mL/min (>89); Glucose,Random 157 mg/dL (74-106); Sodium 132 meq/L (136-145)
[2018-10-15 00:14] LABS: Alkaline Phosphatase 127 U/L (45-117); Total Protein 8.6 g/dL (6.4-8.2)
[2018-10-15 00:20] LABS: Lymphocytes 4 % (9-44); Monocytes 3 % (0-8); Platelet Estimate Normal (Normal); Platelet Morphology Normal (Normal); Toxic Granulation 1+; Toxic Vacuolation Present
[2018-10-15 00:21] LABS: Dohle Bodies Present
[2018-10-15] MEDS ORDERED: Vancomycin Consult Pharmacy OTHER PRN (00:49)
[2018-10-15] MEDS ORDERED: Dextrose 50% in Water 50 ML Vial IV.PUSH PRN (00:49)
[2018-10-15] MEDS ORDERED: Bisacodyl 10 MG Supp RECTAL PRN (00:49)
--- NOTE | 2018-10-15 00:58 | ED ---
HPI General Chief complaint: Extremity Problem,Nontraumatic Stated complaint: Left leg pain complaint Time Seen by Provider: 10/14/18 22:02 History of Present Illness HPI Narrative: pt is a 62 year old male with loqwer leg edema getting worse over the last few weeks . pt has history of lower leg edema but now erythema warmth and pain . Related Data Home Medications Medication Instructions Recorded Confirmed metformin 500 mg PO BID 10/14/18 10/14/18 Allergies Allergy/AdvReac Type Severity Reaction Status Date / Time No Known Allergies Allergy Verified 10/14/18 22:12 [facility] Medical History Medical History Diabetes (Acute) Social History Social History Substance History: Unable to Obtain Smoking Status: Refused to answer How Often Do You Have a Drink Containing Alcohol: Unable to Obtain Recent Travel [facility] within the Last 8 Weeks: No Recent Out of Country Travel within the Last 8 Weeks: No Immunization History Tetanus Immunization: Unsure Course Initial Documented Vital Signs Temperature 98.9 F 10/14/18 22:17 Pulse Rate 110 H 10/14/18 22:17 Respiratory Rate 18 10/14/18 22:17 Blood Pressure 113/56 L 10/14/18 22:17 Pulse Oximetry 100 10/14/18 22:17 Last Documented Vital Signs Temperature 98.9 F 10/14/18 22:17 Pulse Rate 114 H 10/15/18 00:00 Respiratory Rate 16 10/15/18 00:00 Blood Pressure 92/48 L 10/15/18 00:00 Pulse Oximetry 98 10/15/18 00:00 Medical Decision Making Lab Data Result diagrams: 10/14/18 23:30 10/14/18 23:30 Lab Results 10/14/18 10/14/18 10/14/18 Range/Units 23:30 23:30 23:36 WBC 23.4 H (4.0-11.0) th/mm3 RBC 2.69 L (4.50-5.90) mil/mm3 Hgb 8.2 L (13.0-17.0) gm/dL Hct 25.0 L (39.0-51.0) % MCV 93.0 (80.0-100.0) fL MCH 30.6 (27.0-34.0) pg MCHC 32.9 (32.0-36.0) % RDW 14.5 (11.6-17.2) % Plt Count 296 (150-450) th/mm3 MPV 8.9 (7.0-11.0) fL Prelim Diff (Auto) Slide review pending Neut % (Auto) 91.5 H (16.0-70.0) % Lymph % (Auto) 2.3 L (9.0-44.0) % [place] % (Auto) 5.0 (0.0-8.0) % Eos % (Auto) 0.2 (0.0-4.0) % Baso % (Auto) 1.0 (0.0-2.0) % Neut # (Auto) 21.4 H (1.8-7.7) th/mm3 Lymph # (Auto) 0.5 L (1.0-4.8) th/mm3 [place] # (Auto) 1.2 H (0.0-0.9) th/mm3 Eos # (Auto) 0.0 (0.0-0.4) th/mm3 Baso # (Auto) 0.2 (0.0-0.2) th/mm3 WBC Differential Manual diff final Seg Neuts % (Manual) 87 H (16-70) % Band Neuts % (Manual) 6 (0-6) % Lymphocytes % (Manual) 4 L (9-44) % Monocytes % (Manual) 3 (0-8) % Abs Neuts (Manual) 21.8 H (1.8-7.7) th/mm3 Differential Comment . Toxic Granulation 1+ H (None) Toxic Vacuolation Present H (None) Dohle Bodies Present H (None) Platelet Estimate Normal (Normal) Platelet Morphology Normal (Normal) Sodium 132 L (136-145) meq/L Potassium 4.0 (3.5-5.1) meq/L Chloride 96 L (98-107) meq/L Carbon Dioxide 23.6 (21.0-32.0) meq/L Anion Gap 12 (5-15) meq/L BUN 59 H (7-18) mg/dL Creatinine 2.06 H (0.60-1.30) mg/dL Estimated GFR 40 L (>89) mL/min Random Glucose 157 H (74-106) mg/dL Lactic Acid 1.9 (0.4-2.0) mmol/L Calcium 8.9 (8.5-10.1) mg/dL Total Bilirubin 1.1 H (0.2-1.0) mg/dL AST 94 H (15-37) U/L ALT 49 (12-78) U/L Alkaline Phosphatase 127 H (45-117) U/L Total Protein 8.6 H (6.4-8.2) g/dL Albumin 2.0 L (3.4-5.0) g/dL Discharge Plan Discharge Order Discharge Orders: ED Use Only Admit Order (Routine); Ordered 10/15/18 Ordered By: Shon Canela Physicians Team ED Provider: Shon Canela Primary Care Provider: UNKNOWN, Rxs /Orders / Referrals /Forms Prescriptions: No Action metformin 500 mg Tablet 500 mg PO BID RF: 0 Status ED Status: With Doctor
--- NOTE | 2018-10-15 01:57 | P.HPIM ---
History of Present Illness Primary Care Physician: UNKNOWN History of Present Illness: This is a 62-year-old male with a PMH of DM who was brought to the ER by EMS for left leg pain and swelling x4 days. Pt minimally conversive, difficult to obtain history, but denies injury/trauma, no recent antibiotics, did not seek medical attention until now. On arrival, BP 113/56, HR 110, O2 sat 100% on RA, Afebrile. WBC 23.4. Hemoglobin 8.2, previously 10.3 on 03/02/2018. Creatinine 2.06, previously 1.28 on 03/03/2018. +cellulitis on exam, s/p Vanc in ER. Diagnosis (1) SIRS (systemic inflammatory response syndrome): (2) DM (diabetes mellitus): (3) Cellulitis: (4) Anemia: Inpatient Certification Inpatient Certification: I certify that the inpatient services were ordered in accordance with Medicare regulations governing the order. This includes certification that hospital inpatient services are reasonable and necessary and in the case of services not specified as inpatient-only under 42 CFR 419.22(n), that they are appropriately provided as inpatient services in accordance to with the 2-midnight benchmark under 43 CFR 412.3(e) Estimated Total Length of Stay (Days): 2 Plans for Post Hospital Care: Not yet determined Review of Systems PAST FAMILY HISTORY: Reviewed. No h/o DM or CAD Review of Systems: all other systems reviewed are negative [facility] Medical History Medical History Diabetes (Acute) Social History Social History Substance History: Unable to Obtain Smoking Status: Refused to answer How Often Do You Have a Drink Containing Alcohol: Unable to Obtain Recent Travel in [facility] within the Last 8 Weeks: No Recent Out of Country Travel within the Last 8 Weeks: No Immunization History Tetanus Immunization: Unsure Medications and Allergies Allergies Allergy/AdvReac Type Severity Reaction Status Date / Time No Known Allergies Allergy Verified 10/14/18 22:12 Home Medications Medication Instructions Recorded Confirmed Type metformin 500 mg PO BID 10/14/18 10/14/18 History Active Medications: Active Medications Acetaminophen (Tylenol) 650 mg PO Q4H PRN PRN Reason: Temp > 100.4 Al Hydroxide/Mg Hydroxide (Milk Of Magnesia Liq) 30 ml PO Q12H PRN PRN Reason: Mild Constipation Bisacodyl (Dulcolax Supp) 10 mg RECTAL DAILY PRN PRN Reason: SEVERE CONSITIPATION Dextrose (D50w Vial) 50 ml IV.PUSH UNSCH PRN PRN Reason: PER HYPOGLYCEMIA PROTOCOL Glucagon (Glucagon Inj) 1 mg OTHER PRN PRN PRN Reason: for Hypoglycemia Protocol Heparin Sodium (Porcine) (Heparin Inj) 5,000 units SQ Q12H [facility] Sodium Chloride (Ns Inj) 1,000 mls @ 100 mls/hr IV.CONT .Q10H [facility] Cefepime HCl 1,000 mg/ Sodium (Chloride) 100 mls @ 200 mls/hr IV.SIG Q12H [facility] Last Admin: 10/15/18 01:15 Dose: 200 mls/hr Insulin Aspart (Novolog Insulin Correctional Sugar Inj) 0 unit SQ ACHS JIMMY; Protocol Lactulose (Lactulose Liq) 30 ml PO DAILY PRN PRN Reason: SEVERE CONSITIPATION Ondansetron HCl (Zofran Inj) 4 mg IV.PUSH Q6H PRN PRN Reason: NAUSEA OR VOMITING Pharmacy Profile Note (Vancomycin Consult Pharmacy) 1 each OTHER UNSCH PRN PRN Reason: Pharmacy to dose Senna/Docusate Sodium (Pema-Colace) 1 tab PO BID [facility] Sennosides (Senokot) 17.2 mg PO Q12H PRN PRN Reason: Moderate Constipation Sodium Chloride (Ns Flush) 2 ml IV.FLUSH PRN PRN PRN Reason: FLUSH AFTER USING IV ACCESS Sodium Chloride (Ns Flush) 2 ml IV.FLUSH BID [facility] Physical Exam Vital signs: Last Vital Signs Temp 98.9 F 10/14/18 22:17 Pulse 107 H 10/15/18 01:00 Resp 16 10/15/18 01:00 BP 95/52 L 10/15/18 01:00 Pulse Ox 99 10/15/18 01:00 Intake & Output 10/12/18 10/13/18 10/14/18 10/15/18 06:59 06:59 06:59 06:59 Weight 72.575 kg Narrative: PE: GENERAL: Middle-aged black man in no acute distress, jacket over his head, minimally conversive. SKIN: Focused skin assessment warm and dry. HEENT: PERRLA, EOMI. No scleral icterus or conjunctival pallor. No lid lag or facial droop. CARDIOVASCULAR: Regular rate and rhythm. No obvious murmurs to auscultation. No chest tenderness to palpation. RESPIRATORY: No obvious rhonchi or wheezing. Clear to auscultation. Breath sounds equal bilaterally. GASTROINTESTINAL: Abdomen soft, non-tender, nondistended. BS normal. MUSCULOSKELETAL: Extremities without clubbing, cyanosis, or edema. No obvious deformities. LLE w/ edema/cellulitis, warmth to touch. NEUROLOGICAL: Awake, alert and oriented x4. No focal neurologic deficits. Moving both upper and lower extremities spontaneously. PSYCHIATRIC: Appropriate mood and affect. Insight and judgment normal. Results Labs CBC & Chem 7: 10/14/18 23:30 10/14/18 23:30 Caprini VTE Risk Assessment Caprini VTE Risk Assessment: No/Low Risk (score <= 1) Caprini Risk Assessment Model: Point Value = 1 Point Value = 2 Point Value = 3 Point Value = 5 Age 41-60 Minor surgery BMI > 25 kg/m2 Swollen legs Varicose veins or History of unexplained or recurrent spontaneous Oral contraceptives or hormone replacement Sepsis (< 1 month) Serious lung disease, including pneumonia (< 1 month) Abnormal pulmonary function Acute myocardial infarction Congestive heart failure (< 1 month) History of inflammatory bowel disease Medical patient at bed rest Age 61-74 Arthroscopic surgery Major open surgery (> 45 min) Laparoscopic surgery (> 45 min) Malignancy Confined to bed (> 72 hours) Immobilizing plaster cast Central venous access Age >= 75 History of VTE Family history of VTE Factor V Leiden Prothrombin [id number] Lupus anticoagulant Anticardiolipin antibodies Elevated serum homocysteine Heparin-induced thrombocytopenia Other congenital or acquired thrombophilia Stroke (< 1 month) Elective arthroplasty Hip, pelvis, or leg fracture Acute spinal cord injury (< 1 month) Prophylaxis Regimen: Total Risk Factor Score Risk Level Prophylaxis Regimen 0-1 Low Early ambulation 2 Moderate Order ONE of the following: *Sequential Compression Device (SCD) *Heparin 5000 units SQ BID 3-4 Higher Order ONE of the following medications: *Heparin 5000 units SQ TID *Enoxaparin/Lovenox 40 mg SQ daily (WT < 150 kg, CrCl > 30 mL/min) *Enoxaparin/Lovenox 30 mg SQ daily (WT < 150 kg, CrCl > 10-29 mL/min) *Enoxaparin/Lovenox 30 mg SQ BID (WT < 150 kg, CrCl > 30 mL/min) AND/OR *Sequential Compression Device (SCD) 5 or more Highest Order ONE of the following medications: *Heparin 5000 units SQ TID (Preferred with Epidurals) *Enoxaparin/Lovenox 40 mg SQ daily (WT < 150 kg, CrCl > 30 mL/min) *Enoxaparin/Lovenox 30 mg SQ daily (WT < 150 kg, CrCl > 10-29 mL/min) *Enoxaparin/Lovenox 30 mg SQ BID (WT < 150 kg, CrCl > 30 mL/min) AND *Sequential Compression Device (SCD) Assessment and Plan (1) SIRS (systemic inflammatory response syndrome): Code(s): R65.10 - Systemic inflammatory response syndrome (SIRS) of non-infectious origin without acute organ dysfunction Status: Acute (2) DM (diabetes mellitus): Code(s): E11.9 - Type 2 diabetes mellitus without complications Status: Acute (3) Cellulitis: Code(s): L03.90 - Cellulitis, unspecified Status: Acute (4) Anemia: Code(s): D64.9 - Anemia, unspecified Status: Acute Plan A/P: 1. SIRS: HR 107, WBC 23, Source-LLE Cellulitis, s/p Blood Cultures, continue IV Abx, follow up cultures, IVF for hydration. 2. LLE Cellulitis: acute onset edema/pain, continue w/ IV Abx as above, will check Doppler to eval for possible underlying DVT. 3. Anemia: Hgb 8.2, previously 10.3 on 03/02/18, no active bleeding, will recheck labs in am, transfuse as needed 4. DM: Sliding scale w/ Accu-Cheks, hold Metformin for now. 5. DVT Prophylaxis: Heparin sq 6. Social work for d/c planning as needed. 7. Case discussed w/ ER physician at length, labs/records/imaging reviewed by me.
[2018-10-15] MEDS: Sod Chloride 0.9% Inj 1,000 ML IV.CONT SCH ×4 (03:00→22:33)
[2018-10-15] MEDS: Heparin - SQ 10,000 UNITS/ML Vial SQ SCH ×2 (08:31→22:32)
[2018-10-15] MEDS: Senna/Docusate Sodium 8.6/50 MG Tablet PO SCH ×2 (08:31→22:32)
--- NOTE | 2018-10-15 08:51 | US ---
EXAM DATE: 10/15/2018 8:49 AM EST AGE/SEX: 62 years / Male INDICATIONS: Left leg swelling. CLINICAL DATA: This is the patient's initial encounter. Patient reports that signs and symptoms have been present for 3 weeks and indicates a pain score of 6/10. MEDICAL/SURGICAL HISTORY: . Diabetic. . Heart surgery. COMPARISON: [facility] – [place], [place] LEG BILATERAL VENOUS DOPPLER, 08/01/2017. . TECHNIQUE: Venous ultrasound of both lower extremities was performed from the inguinal ligament to t he proximal calf. Real-time, color Doppler and spectral tracing, compression and augmentation techni ques were used. FINDINGS: Normal compression of the deep venous system from the inguinal region to the proximal calf . No echogenic clot is seen. Normal response of the venous system to augmentation and respiration. CONCLUSION: 1. No sonographic evidence for left lower extremity DVT. Electronically signed by: Emeterio Pacheco MD Board Certified Radiologist 10/15/2018 8:50 AM T
[2018-10-15] MEDS: Insulin NovoLOG Aspart Correctional Sugar Inj SQ SCH ×4 (09:53→22:32)
[2018-10-15] MEDS ORDERED: Vancomycin Inj 1,000 MG in Sodium Chlor 0.9% Inj 250 ML IV.SIG SCH (10:00)
[2018-10-15] MEDS: Acetaminophen 325 MG Tablet PO PRN (11:51)
[2018-10-15 11:52] LABS: Baso % (Auto) 0.2 % (0.0-2.0); Eos # (Auto) 0.1 th/mm3 (0.0-0.4); Eos % (Auto) 0.3 % (0.0-4.0); Hematocrit 22.8 % (39.0-51.0); Hemoglobin 7.3 gm/dL (13.0-17.0); Lymph # (Auto) 0.3 th/mm3 (1.0-4.8); Lymph % (Auto) 1.3 % (9.0-44.0); Mean Corpuscular HGB Conc 32.2 % (32.0-36.0); Mean Corpuscular Volume 93.1 fL (80.0-100.0); Mean Platelet Volume 8.2 fL (7.0-11.0); Mono % (Auto) 4.4 % (0.0-8.0); Neut # (Auto) 20.6 th/mm3 (1.8-7.7); Neut % (Auto) 93.8 % (16.0-70.0); Platelet Count 308 th/mm3 (150-450); Red Blood Count 2.45 mil/mm3 (4.50-5.90); Red Cell Distribution Width 14.5 % (11.6-17.2); White Blood Count 21.9 th/mm3 (4.0-11.0)
[2018-10-15 12:08] LABS: Carbon Dioxide 24.7 meq/L (21.0-32.0); Potassium 3.7 meq/L (3.5-5.1)
[2018-10-15 12:32] LABS: Lymphocytes 2 % (9-44); Monocytes 3 % (0-8)
[2018-10-15 12:33] LABS: Dohle Bodies Present; Platelet Estimate Normal (Normal); Platelet Morphology Normal (Normal); Toxic Granulation 2+
--- NOTE | 2018-10-15 13:13 | CT ---
EXAM DATE: 10/15/2018 1:05 PM EST AGE/SEX: 62 years / Male INDICATIONS: Left lower leg pain and swelling. CLINICAL DATA: This is the patient's initial encounter. Patient reports that signs and symptoms have been present for 2 weeks and indicates a pain score of 7/10. MEDICAL/SURGICAL HISTORY: Diabetes. . cardiac surgery RADIATION DOSE: 5.94 CTDI (mGy) COMPARISON: . TECHNIQUE: Multiple contiguous axial images were acquired using a multirow detector CT scanner witho ut contrast. Multiplanar reconstruction was performed in the sagittal and coronal planes. Using aut omated exposure control and adjustment of the mA and/or kV according to patient size, radiation dose was kept as low as reasonably achievable to obtain optimal diagnostic quality images. DICOM format i mage data is available electronically for review and comparison. FINDINGS: There is generalized soft tissue swelling without contained abscess or evidence for ostial myelitis. Moderate macrocalcifications are evident. Small mild fluid is seen in the subcutaneous tissues tracki ng along the gastrocnemius CONCLUSION: 1. Cellulitis without abscess or osteomyelitis. Electronically signed by: Benitez Lei MD Board Certified Radiologist 10/15/2018 1:11 PM EST
--- NOTE | 2018-10-15 15:57 | P.CONID ---
History of Present Illness Service: Infectious disease Consult date: 10/15/18 Requesting Physician: Loreta Albarran Reason for Consult: Evaluate patient with LLE cellulitis Primary Care Provider: UNKNOWN History of Present Illness: Patient seen and examined. Records reviewed. Patient is a very poor historian. Patient is a 62-year-old male, presented to the hospital complaining of swelling and pain in his left lower extremity. He could not really tell me how long it has been there. He denies any trauma, denies any previous episode of cellulitis in the left lower extremity. He denies any fever chills or sweats. But since his been here he had been febrile up to 101+. He denies any sore throat or any respiratory complaint. Denies any nausea or vomiting, GI or any urinary complaints. On presentation his WBC was 23,000. His creatinine was up to 2.06. CT of the left lower extremity did not show any abscess, osteophyte just significant swelling compatible with cellulitis. He is on cefepime and vancomycin Infectious disease consultation has been requested to assist with evaluation and treatment of his cellulitis. Past HX: hypertension, diabetes mellitus, coronary artery disease, CHF (last EF of 40% in 08/01) peripheral arterial disease, hyperlipidemia, depression, GERD and osteoarthritis Past Surgical History: CABG Right first toe amputation Left arm I&D for MRSA Review of Systems Constitutional: Reports fever(s) Eyes: Denies discharge, Denies dry eyes Ears, Nose, Mouth, and Throat: Denies difficulty swallowing, Denies nasal discharge, Denies sore throat Cardiovascular: Reports leg sores, Reports leg swelling, Denies chest pain, Denies shortness of breath Respiratory: Denies chest congestion, Denies cough, Denies shortness of breath Gastrointestinal: Denies abdominal pain, Denies incontinent of stools, Denies loose stools, Denies nausea, Denies pain with swallowing, Denies vomiting Genitourinary: Denies difficulty urinating, Denies painful urination Musculoskeletal: Denies joint swelling Skin/Breast: Reports sores, Reports wounds PMFSH - History History Provided By: Patient - Medical History Medical History: Medical History (Last Updated 10/15/18 @ 16:01 by Theresa Laws MD) Amputated toe of right foot Diabetes GERD (gastroesophageal reflux disease) Hypertension Peripheral vascular disease - Surgical History Surgical History: Surgical History (Last Updated 10/15/18 @ 04:34 by Melvi Molina RN) History of open heart surgery - Tobacco History Second Hand Smoke Exposure: No Smoking Status: Never smoker - Alcohol History How Often Do You Have a Drink Containing Alcohol: Never - Substance Use History Substance History: No History of Abuse - Travel History Recent Travel in the [place] Within the Last 8 Weeks: No Recent Travel Out of the Country Within the Last 8 Weeks: No - Immunization History Tetanus Immunization: Unsure Medications and Allergies Active Medications: Active Medications Acetaminophen (Tylenol) 650 mg PO Q4H PRN PRN Reason: Temp > 100.4 Last Admin: 10/15/18 11:51 Dose: 650 mg Al Hydroxide/Mg Hydroxide (Milk Of Magnesia Liq) 30 ml PO Q12H PRN PRN Reason: Mild Constipation Bisacodyl (Dulcolax Supp) 10 mg RECTAL DAILY PRN PRN Reason: SEVERE CONSITIPATION Dextrose (D50w Vial) 50 ml IV.PUSH UNSCH PRN PRN Reason: PER HYPOGLYCEMIA PROTOCOL Glucagon (Glucagon Inj) 1 mg OTHER PRN PRN PRN Reason: for Hypoglycemia Protocol Heparin Sodium (Porcine) (Heparin Inj) 5,000 units SQ Q12H [facility] Last Admin: 10/15/18 08:31 Dose: 5,000 units Sodium Chloride (Ns Inj) 1,000 mls @ 125 mls/hr IV.CONT .Q8H [facility] Last Admin: 10/15/18 14:16 Dose: 125 mls/hr Cefepime HCl 1,000 mg/ Sodium (Chloride) 100 mls @ 200 mls/hr IV.SIG Q12H [facility] Last Admin: 10/15/18 14:16 Dose: 200 mls/hr Clindamycin Phosphate 600 mg/ (Sodium Chloride) 104 mls @ 200 mls/hr IV.SIG Q8H [facility] Daptomycin 500 mg/ Sodium (Chloride) 100 mls @ 200 mls/hr IV.SIG Q48H [facility] Insulin Aspart (Novolog Insulin Correctional Sugar Inj) 0 unit SQ ACHS [facility]; Protocol Last Admin: 10/15/18 13:32 Dose: 1 unit Lactulose (Lactulose Liq) 30 ml PO DAILY PRN PRN Reason: SEVERE CONSITIPATION Miscellaneous Information ([facility] Ordered Lab Info) 0 each OTHER ONCE ONE Stop: 10/18/18 09:46 Ondansetron HCl (Zofran Inj) 4 mg IV.PUSH Q6H PRN PRN Reason: NAUSEA OR VOMITING Senna/Docusate Sodium (Pema-Colace) 1 tab PO BID [facility] Last Admin: 10/15/18 08:31 Dose: 1 tab Sennosides (Senokot) 17.2 mg PO Q12H PRN PRN Reason: Moderate Constipation Sodium Chloride (Ns Flush) 2 ml IV.FLUSH PRN PRN PRN Reason: FLUSH AFTER USING IV ACCESS Sodium Chloride (Ns Flush) 2 ml IV.FLUSH BID [facility] Last Admin: 10/15/18 08:31 Dose: Not Given Allergies Allergy/AdvReac Type Severity Reaction Status Date / Time No Known Allergies Allergy Verified 10/14/18 22:12 Home Medications Medication Instructions Recorded Confirmed Type metformin 500 mg PO BID 10/14/18 10/14/18 History Exam Vital signs: Vital Signs 10/14/18 22:17 10/15/18 00:00 10/15/18 01:00 Temperature 98.9 F Pulse Rate 110 H 114 H 107 H Respiratory Rate 18 16 16 Blood Pressure 113/56 L 92/48 L 95/52 L Pulse Oximetry 100 98 99 10/15/18 02:00 10/15/18 03:48 10/15/18 04:05 Temperature Pulse Rate 107 H 121 H 109 H Respiratory Rate 16 20 Blood Pressure 106/53 L 117/64 Pulse Oximetry 98 97 10/15/18 07:47 10/15/18 12:00 Temperature 101.1 F H 101.3 F H Pulse Rate 111 H 117 H Respiratory Rate 16 16 Blood Pressure 105/56 L 99/54 L Pulse Oximetry 97 97 Intake & Output 10/14/18 10/15/18 10/15/18 18:59 06:59 18:59 Intake Total 1100 / 1100 1000 / 1000 Balance 1100 / 1100 1000 / 1000 Weight 72.575 kg Intake: IV 1100 / 1100 1000 / 1000 NS Inj 1,000 ML @ 125 mls/hr IV 1000 / 1000 .CONT .Q8H [facility] Rx#:[id number] Maxipime Inj 1,000 MG In NS Inj 100 / 100 100 ML @ 200 mls/hr IV.SIG Q12H [facility] Rx#:[id number] NS Inj 500 ML @ Wide Open IV. 1000 / 1000 SIG BOLUS ONE Rx#:[id number] Other: Date of Last Bowel Movement 10/13/18 Weight On Admission 72.575 kg Narrative: Physical examination GENERAL: Patient is a well-nourished, well-developed male, awake and alert, not in respiratory distress. SKIN: Warm and dry. No generalized rash, no ecchymoses and no evidence of embolic lesions. HEAD: Atraumatic. Normocephalic. No temporal wasting, or tenderness. EYES: Pale conjunctiva. No petechia or hemorrhage. Pupils equal, round and reactive to light. Extraocular movements full and intact. No scleral icterus. No injection or drainage. EARS, NOSE AND THROAT: Nose without bleeding or purulent nasal discharge. No sinus tenderness. Mucous membranes pink and moist. No oral lesions noted. No exudate. No oral thrush. NECK: Trachea midline. Supple and not tender, no meningeal signs CARDIOVASCULAR: Regular rate and rhythm. No murmurs, rubs or gallops heard RESPIRATORY: Clear to auscultation. Breath sounds equal bilaterally. No rales , wheezing or rhonchi ABDOMEN: Soft, non-tender, nondistended. Bowel sounds present and normoactive. No guarding. No rebound. No organomegaly. EXTREMITIES: No clubbing, cyanosis. LLE markedly swollen, warm, has areas of fat necrosis, with some oozing areas, color difficult to discern due to dark skin, no odor. Has dry skin on his L foot. RLE not swollen, well healed amputation of his big toe. No joint effusion, has good ROM. No calf tenderness. NEUROLOGICAL: Awake and alert. Cranial nerves grossly intact. Motor grossly within normal limits. PSYCHIATRIC: Flat affect, calm and cooperative. LINE: No evidence of infection Results - Labs CBC & Chem 7: 10/15/18 11:36 10/15/18 11:36 Labs: Laboratory Results - last 24 hr 10/14/18 10/14/18 10/14/18 23:30 23:30 23:36 WBC 23.4 H RBC 2.69 L Hgb 8.2 L Hct 25.0 L MCV 93.0 MCH 30.6 MCHC 32.9 RDW 14.5 Plt Count 296 MPV 8.9 Prelim Diff (Auto) Slide review pending Neut % (Auto) 91.5 H Lymph % (Auto) 2.3 L York % (Auto) 5.0 Eos % (Auto) 0.2 Baso % (Auto) 1.0 Neut # (Auto) 21.4 H Lymph # (Auto) 0.5 L [place] # (Auto) 1.2 H Eos # (Auto) 0.0 Baso # (Auto) 0.2 WBC Differential Manual diff final Seg Neuts % (Manual) 87 H Band Neuts % (Manual) 6 Lymphocytes % (Manual) 4 L Monocytes % (Manual) 3 Abs Neuts (Manual) 21.8 H Differential Comment . Toxic Granulation 1+ H Toxic Vacuolation Present H Dohle Bodies Present H Platelet Estimate Normal Platelet Morphology Normal Sodium 132 L Potassium 4.0 Chloride 96 L Carbon Dioxide 23.6 Anion Gap 12 BUN 59 H Creatinine 2.06 H Estimated GFR 40 L POC Glucose Random Glucose 157 H Lactic Acid 1.9 Calcium 8.9 Total Bilirubin 1.1 H AST 94 H ALT 49 Alkaline Phosphatase 127 H Ammonia Total Protein 8.6 H Albumin 2.0 L 10/15/18 10/15/18 10/15/18 08:27 11:36 11:36 WBC 21.9 H RBC 2.45 L Hgb 7.3 L Hct 22.8 L MCV 93.1 MCH 30.0 MCHC 32.2 RDW 14.5 Plt Count 308 MPV 8.2 Prelim Diff (Auto) Slide review pending Neut % (Auto) 93.8 H Lymph % (Auto) 1.3 L York % (Auto) 4.4 Eos % (Auto) 0.3 Baso % (Auto) 0.2 Neut # (Auto) 20.6 H Lymph # (Auto) 0.3 L [place] # (Auto) 1.0 H Eos # (Auto) 0.1 Baso # (Auto) 0.0 WBC Differential Manual diff final Seg Neuts % (Manual) 79 H Band Neuts % (Manual) 16 H Lymphocytes % (Manual) 2 L Monocytes % (Manual) 3 Abs Neuts (Manual) 20.8 H Differential Comment . Toxic Granulation 2+ H Toxic Vacuolation Dohle Bodies Present H Platelet Estimate Normal Platelet Morphology Normal Sodium 136 Potassium 3.7 Chloride 102 Carbon Dioxide 24.7 Anion Gap 9 BUN 59 H Creatinine 2.04 H Estimated GFR 40 L POC Glucose 162 H Random Glucose 155 H Lactic Acid Calcium 8.0 L D Total Bilirubin AST ALT Alkaline Phosphatase Ammonia Total Protein Albumin 12/31/18 12/31/18 12/31/18 11:36 12:25 14:45 WBC RBC Hgb Hct MCV MCH MCHC RDW Plt Count MPV Prelim Diff (Auto) Neut % (Auto) Lymph % (Auto) York % (Auto) Eos % (Auto) Baso % (Auto) Neut # (Auto) Lymph # (Auto) [place] # (Auto) Eos # (Auto) Baso # (Auto) WBC Differential Seg Neuts % (Manual) Band Neuts % (Manual) Lymphocytes % (Manual) Monocytes % (Manual) Abs Neuts (Manual) Differential Comment Toxic Granulation Toxic Vacuolation Dohle Bodies Platelet Estimate Platelet Morphology Sodium Potassium Chloride Carbon Dioxide Anion Gap BUN Creatinine Estimated GFR POC Glucose 166 H Random Glucose Lactic Acid 1.2 Calcium Total Bilirubin AST ALT Alkaline Phosphatase Ammonia 13 Total Protein Albumin - Imaging Impressions Lower Extremity CT 10/15/18 00:00 CONCLUSION: 1. Cellulitis without abscess or osteomyelitis. Venous Doppler Study 10/15/18 00:00 CONCLUSION: 1. No sonographic evidence for left lower extremity DVT. Assessment and Plan - Plan Impression Sepsis due to LLE cellulitis Cellulitis LLE Renal insufficiency Known DM Per records PVD Recommendation Continue cefepime Use Cubicin instead of Vanco since creatinine elevated - reevaluate once creatinine better Add short course of Clindamycin Follow C/S Leg elevation Monitor progress I will make further recommendation once workup completed and depending on his progress I will follow along with you Thank you for this consultation
[2018-10-15 17:46] LABS: Hematocrit 22.8 % (39.0-51.0); Hemoglobin 7.2 gm/dL (13.0-17.0)
[2018-10-15] MEDS: DAPTOmycin Inj 500 MG in Sodium Chlor 0.9% Inj 100 ML IV.SIG SCH (17:54)
[2018-10-15 18:39] LABS: Amorphous Sediment,Urine Moderate /hpf; Bacteria,Urine Rare /hpf; Bilirubin,Urine Negative (Negative); Clarity,Urine Hazy (Clear); Color,Urine Yellow (Yellw/Straw); Glucose,Urine (UA) 500 or Greater mg/dL (Negative); Hyaline Casts,Urine 3 /lpf (0-3); Leukocyte Esterase,Urine Negative (Negative); Mucus,Urine Few /lpf (Occasional); Nitrite,Urine Negative (Negative); Specific Gravity,Urine 1.013 (1.002-1.035); Urobilinogen,Urine 4 or Greater mg/dL (Less than 2)
[2018-10-15 18:53] LABS: Amphetamine Screen,Urine Neg (Neg); Barbiturate Screen,Urine Neg (Neg); Cannabinoid Screen,Urine Pos (Neg); Cocaine Screen,Urine Neg (Neg)
[2018-10-15 18:56] LABS: Opiate Screen,Urine Neg (Neg)
[2018-10-16] MEDS: Acetaminophen 325 MG Tablet PO PRN (00:14)
[2018-10-16] MEDS: Sod Chloride 0.9% Inj 1,000 ML IV.CONT SCH ×2 (07:51→12:20)
[2018-10-16] MEDS: Insulin NovoLOG Aspart Correctional Sugar Inj SQ SCH ×4 (08:57→21:28)
[2018-10-16] MEDS: Heparin - SQ 10,000 UNITS/ML Vial SQ SCH (08:57)
[2018-10-16] MEDS: Senna/Docusate Sodium 8.6/50 MG Tablet PO SCH ×2 (08:57→20:01)
--- NOTE | 2018-10-16 09:54 | P.PNIM ---
Subjective Interval history: Follow up on patient with LLE cellulitis. Patient seen and examined. Patient much more alert this morning. He states he slept well. He denies any fever or chills. He denies any dizziness, headache, vision changes, chest pain or dyspnea. He denies any N/V or abdominal pain. Hemoglobin is dropping. He denies any bloody/tarry/dark stools. Physical Exam Vital signs: Last Vital Signs Temp 98.0 F 10/16/18 07:32 Pulse 105 H 10/16/18 07:32 Resp 16 10/16/18 07:32 BP 125/66 10/16/18 07:32 Pulse Ox 98 10/16/18 07:32 Intake & Output 10/14/18 10/15/18 10/16/18 10/17/18 06:59 06:59 06:59 06:59 Intake Total 1100 / 1100 3758 / 3758 Output Total 975 / 975 Balance 1100 / 1100 2783 / 2783 Weight 72.575 kg Narrative: GENERAL: Patient is a well-nourished, well-developed Lynda male patient, INAD. Awake and alert. SKIN: Warm and dry. HEENT: Atraumatic. Normocephalic. Pale conjunctiva. Pupils equal, round and reactive to light. Extraocular movements full and intact. No scleral icterus. No injection or drainage. No nasal drainage. MMM. Airway patent. NECK: Trachea midline. CARDIOVASCULAR: Regular rate and rhythm. No murmur auscultated. RESPIRATORY: Clear to auscultation. Breath sounds equal bilaterally. No rales , wheezing or rhonchi ABDOMEN: Soft, non-tender, nondistended. No guarding. Bowel sounds present and normoactive. EXTREMITIES: No clubbing, cyanosis. LLE markedly swollen, warm, has areas of fat necrosis, with some oozing areas. +erythematous. RLE not swollen, well healed amputation of his big toe. No joint effusion, has good ROM. NEUROLOGICAL: Awake and alert. Cranial nerves grossly intact. Able to move all extremities spontaneously. Normal speech. PSYCHIATRIC: Calm and cooperative. Results Labs CBC & Chem 7: 10/17/18 04:11 10/17/18 04:11 Labs: Microbiology 10/14/18 23:25 Blood - Peripheral Aerobic Blood Culture - Preliminary No growth in 1 day 10/14/18 23:25 Blood - Peripheral Anaerobic Blood Culture - Preliminary No growth in 1 day 10/14/18 23:30 Blood - Peripheral Aerobic Blood Culture - Preliminary No growth in 1 day 10/14/18 23:30 Blood - Peripheral Anaerobic Blood Culture - Preliminary No growth in 1 day Imaging Imaging: Impressions Lower Extremity CT 10/15/18 00:00 CONCLUSION: 1. Cellulitis without abscess or osteomyelitis. Assessment and Plan Plan 62-year-old male with a PMH of DM who was brought to the ER by EMS for left leg pain and swelling x4 days. Sepsis with fever 101.3, tachycardia with HR 117 and WBC 23 secondary to cellulitis LLE, resolving White count trending down currently afebrile Blood cx with no growth x 2 days -on IVF, discontinue -continue IV antibiotics -continue to monitor clinically -follow blood cx until finalized -monitor white count Cellulitis LLE doppler neg for DVT CT neg for bony involvement -ID following, appreciate assistance. Changed from Vanco to Daptomycin. Continue on Cefepime. Clindamycin added -wound cx ordered -wound care nurse consulted -monitor Acute anemia, uncertain etiology Hgb dropped to 6.8 -Consult GI, appreciate assistance -iron studies ordered -stool hemoccult ordered -transfuse 1u PRBCs -repeat H/H following transfusion ABDIEL on CKD stage III -creatinine 2.06, baseline around 1.5 -UA neg -continue to hold Metformin -repeat Cr 1.59 -avoid nephrotoxic agents -monitor kidney function as indicated DM -continue to hold Metformin -Accuchek and ISS Depression secondary to recent loss of father self care neglect -Consult Psychiatry, appreciate assistance Hypokalemia K 3.4 -po repletion ordered -repeat BMP in am Cannabis abuse UDS + cannabis -discussed cessation DVT prophylaxis -Hold Heparin secondary to acute anemia Progress Note: Quality VTE Deep Vein Thrombosis/Pulmonary Embolism Present on Admission: No
--- NOTE | 2018-10-16 10:34 | P.CONPSY ---
Provisional Diagnosis Admission Date: October 15, 2018 00:53 [place] I.: Adjustment disorder with depressed mixed anxiety and depressed mood History of Present Illness Service: ER Primary Care Provider: UNKNOWN History of Present Illness: The patient is a 62-year-old -[place] man, [place], single, father of 6 kids, unemployed, supported by [employer], without no previous psychiatric history, no pre-suicide attempts, no previous psychiatric hospitalizations, never being on the [place] act, with medical history of DM, who was brought to the ER by EMS for left leg pain and swelling x4 days. Patient was initaly described by ER team as minimally conversative, difficult to obtain history. On arrival, BP 113/56, HR 110, O2 sat 100% on RA, Afebrile. WBC 23.4. Hemoglobin 8.2, previously 10.3 on 03/02/2018. Creatinine 2.06, previously 1.28 on 03/03/2018. +cellulitis on exam, s/p Vanc in ER. Was admitted with SIRS, DM, Cellulitis, Anemia. The patient was consulted to psychiatry due to suspected symptoms of depression. Chart was reviewed. The patient is evaluated in his room in the ER. On my psychiatric evaluation the patient is found sleeping, but easily arousable. Patient is calm, cooperative, very pleasant. The patient tells me that the reason he is in the hospital is because his left leg is swelling I had not been feeling very good. Patient says that he does not have any pain or distress at this moment. Patient is seeking to continue the treatment and follow medical recommendations. He describes his mood as very good. Patient is oriented x3, he knows who is the president. Patient understand that today is the first day of the year and he tells me what are his wishes, including to get better and go back home. He describes his life as a happy life in general. He says that he is a very positive person. He denies anhedonia, denies hopelessness, denies helplessness , she denies worthlessness, denies suicidal ideation, he does report decreased energy and appetite due to physical symptoms, but reports good sleep. The patient is logical, coherent and relevant. No delusions, no loosening of associations, no ideas of reference are present during this evaluation PPHx: previous psychiatric history, no pre-suicide attempts, no previous psychiatric hospitalizations, never being on the [place] act, PMHx: with medical history of DM Substance Hx: Denies use of illegal drugs Family Hx: Denies previous family psychiatric history Social Hx: The patient was born and raised in [facility], he [place] , single, unemployed, supported by [facility], his father of 6 kids Review of Systems All other systems reviewed negative except as stated in HPI PMFSH - History History Provided By: Patient - Medical History Medical History: Medical History (Last Reviewed 10/15/18 @ 19:31 by Fer Ward) Amputated toe of right foot Diabetes GERD (gastroesophageal reflux disease) Hypertension Peripheral vascular disease - Surgical History Surgical History: Surgical History (Last Reviewed 10/15/18 @ 19:31 by Fer Ward) History of open heart surgery - Tobacco History Second Hand Smoke Exposure: No Smoking Status: Never smoker - Alcohol History How Often Do You Have a Drink Containing Alcohol: Never - Substance Use History Substance History: No History of Abuse - Travel History Recent Travel in the [place] Within the Last 8 Weeks: No Recent Travel Out of the Country Within the Last 8 Weeks: No - Immunization History Tetanus Immunization: Unsure Medications and Allergies Active Medications: Active Medications Acetaminophen (Tylenol) 650 mg PO Q4H PRN PRN Reason: Temp > 100.4 Last Admin: 10/16/18 00:14 Dose: 650 mg Al Hydroxide/Mg Hydroxide (Milk Of Magnheather Liq) 30 ml PO Q12H PRN PRN Reason: Mild Constipation Bisacodyl (Dulcolax Supp) 10 mg RECTAL DAILY PRN PRN Reason: SEVERE CONSITIPATION Dextrose (D50w Vial) 50 ml IV.PUSH UNSCH PRN PRN Reason: PER HYPOGLYCEMIA PROTOCOL Glucagon (Glucagon Inj) 1 mg OTHER PRN PRN PRN Reason: for Hypoglycemia Protocol Heparin Sodium (Porcine) (Heparin Inj) 5,000 units SQ Q12H [facility] Last Admin: 10/16/18 08:57 Dose: 5,000 units Sodium Chloride (Ns Inj) 1,000 mls @ 125 mls/hr IV.CONT .Q8H [facility] Last Admin: 10/16/18 07:51 Dose: 125 mls/hr Cefepime HCl 1,000 mg/ Sodium (Chloride) 100 mls @ 200 mls/hr IV.SIG Q12H [facility] Last Infusion: 10/16/18 02:38 Dose: Infused Clindamycin Phosphate 600 mg/ (Sodium Chloride) 104 mls @ 200 mls/hr IV.SIG Q8H [facility] Last Infusion: 10/16/18 10:15 Dose: Infused Daptomycin 500 mg/ Sodium (Chloride) 100 mls @ 200 mls/hr IV.SIG Q48H [facility] Last Infusion: 10/15/18 18:56 Dose: Infused Insulin Aspart (Novolog Insulin Correctional Sugar Inj) 0 unit SQ ACHS [facility]; Protocol Last Admin: 10/16/18 08:57 Dose: 1 unit Lactulose (Lactulose Liq) 30 ml PO DAILY PRN PRN Reason: SEVERE CONSITIPATION Miscellaneous Information ([facility] Ordered Lab Info) 0 each OTHER ONCE ONE Stop: 10/18/18 09:46 Ondansetron HCl (Zofran Inj) 4 mg IV.PUSH Q6H PRN PRN Reason: NAUSEA OR VOMITING Senna/Docusate Sodium (Pema-Colace) 1 tab PO BID [facility] Last Admin: 10/16/18 08:57 Dose: 1 tab Sennosides (Senokot) 17.2 mg PO Q12H PRN PRN Reason: Moderate Constipation Sodium Chloride (Ns Flush) 2 ml IV.FLUSH PRN PRN PRN Reason: FLUSH AFTER USING IV ACCESS Sodium Chloride (Ns Flush) 2 ml IV.FLUSH BID [facility] Last Admin: 10/16/18 08:57 Dose: 2 ml Allergies Allergy/AdvReac Type Severity Reaction Status Date / Time No Known Allergies Allergy Verified 10/14/18 22:12 Home Medications Medication Instructions Recorded Confirmed Type metformin 500 mg PO BID 10/14/18 10/14/18 History Exam Vital signs: Vital Signs 10/15/18 12:00 10/15/18 13:50 10/15/18 16:00 Temperature 101.3 F H 98.8 F Pulse Rate 117 H 110 H 101 H Respiratory Rate 16 18 Blood Pressure 99/54 L 95/55 L Pulse Oximetry 97 96 10/15/18 20:00 10/16/18 00:00 10/16/18 04:00 Temperature 100 F H 101.8 F H 96.8 F L Pulse Rate 110 H 121 H 98 H Respiratory Rate 22 20 20 Blood Pressure 111/56 L 115/56 L 109/59 L Pulse Oximetry 97 95 97 10/16/18 07:32 Temperature 98.0 F Pulse Rate 105 H Respiratory Rate 16 Blood Pressure 125/66 Pulse Oximetry 98 Intake & Output 10/15/18 10/16/18 10/16/18 18:59 06:59 18:59 Intake Total 1554 / 1554 2204 / 2204 104 / 104 Output Total 975 / 975 Balance 579 / 579 2204 / 2204 104 / 104 Intake: IV 1554 / 1554 2204 / 2204 104 / 104 NS Inj 1,000 ML @ 125 mls/hr IV 1000 / 1000 1999 / 1999 .CONT .Q8H [facility] Rx#:[id number] Maxipime Inj 1,000 MG In NS Inj 100 / 100 100 / 100 100 ML @ 200 mls/hr IV.SIG Q12H [facility] Rx#:[id number] Cleocin Inj 600 MG In NS Inj 104 / 104 104 / 104 104 / 104 100 ML @ 200 mls/hr IV.SIG Q8H [facility] Rx#:[id number] Cubicin Inj 500 MG In NS Inj 100 / 100 100 ML @ 200 mls/hr IV.SIG Q48H [facility] Rx#:[id number] Vancomycin Inj 1,000 MG In NS 250 / 250 Inj 250 ML @ 250 mls/hr IV.SIG Q24H [facility] Rx#:[id number] Output: Urine 975 / 975 Mental Status Examination Appearance: Appropriate Consciousness: Alert Orientation: x4 Motor Activity: Normal gait Speech: Unremarkable Language: Adequate Fund of Knowledge: Adequate Attention and Concentration: Adequate Memory: Unremarkable Mood: Appropriate Affect: Appropriate Thought Process & Associations: Intact Thought Content: Appropriate Hallucination Type: None Delusion Type: None Suicidal Ideation: No Suicidal Plan: No Suicidal Intention: No Homicidal Ideation: No Homicidal Plan: No Homicidal Intention: No Insight: Adequate Judgment: Adequate Assessment and Plan - Assessment (1) Adjustment disorder with mixed anxiety and depressed mood Code(s): F43.23 - Adjustment disorder with mixed anxiety and depressed mood Status: Acute - Plan Plan: On my psychiatric evaluation today the patient is calm, cooperative, pleasant, he does not present any neuropsychiatric symptoms are required an immediate psychiatric intervention. The patient denies symptomatology of depression, anxiety, [place] or psychosis at the moment. The patient reports good mood, is future oriented, willing to continue medical treatment. The patient is oriented x3, no attention deficit, no fluctuation of consciousness, no impairment in abstraction or executive function noted, no gross cognitive impairment. He denies suicidal and homicidal ideation, denies visual and auditory hallucinations. Reports may be some mild to moderate situational anxiety, patient can be medicated with clonazepam 0.5 mg as needed anxiety every 8 hours. No admission indicated. Extensive support, motivation, psychoeducation provided. Consult appreciated. Justification for Continued Inpatient Stay: No admission is indicated at the moment.
[2018-10-16 10:36] LABS: Baso % (Auto) 0.1 % (0.0-2.0); Lymph # (Auto) 0.2 th/mm3 (1.0-4.8); Lymph % (Auto) 1.3 % (9.0-44.0); Mean Corpuscular HGB Conc 31.6 % (32.0-36.0); Mean Corpuscular Hemoglobin 29.8 pg (27.0-34.0); Mean Corpuscular Volume 94.1 fL (80.0-100.0); Mean Platelet Volume 8.5 fL (7.0-11.0); Mono # (Auto) 1.2 th/mm3 (0.0-0.9); Mono % (Auto) 6.2 % (0.0-8.0); Neut # (Auto) 17.8 th/mm3 (1.8-7.7); Neut % (Auto) 92.4 % (16.0-70.0); Platelet Count 312 th/mm3 (150-450); Red Blood Count 2.29 mil/mm3 (4.50-5.90); Red Cell Distribution Width 14.5 % (11.6-17.2); White Blood Count 19.3 th/mm3 (4.0-11.0)
[2018-10-16 10:43] LABS: Hematocrit 21.5 % (39.0-51.0); Hemoglobin 6.8 gm/dL (13.0-17.0)
[2018-10-16 10:56] LABS: Albumin 1.6 g/dL (3.4-5.0); Anion Gap 11 meq/L (5-15); Aspartate Aminotransferase 73 U/L (15-37); Blood Urea Nitrogen 45 mg/dL (7-18); Calcium 8.2 mg/dL (8.5-10.1); Carbon Dioxide 21.2 meq/L (21.0-32.0); Chloride 105 meq/L (98-107); Glomerular Filtration Rate 54 mL/min (>89); Glucose,Random 130 mg/dL (74-106); Potassium 3.4 meq/L (3.5-5.1); Sodium 137 meq/L (136-145)
[2018-10-16 11:02] LABS: Alanine Aminotransferase 32 U/L (12-78); Alkaline Phosphatase 114 U/L (45-117)
[2018-10-16 11:32] LABS: Lymphocytes 3 % (9-44); Monocytes 8 % (0-8)
[2018-10-16 11:33] LABS: Platelet Estimate Normal (Normal); Platelet Morphology Normal (Normal); Toxic Granulation 2+
[2018-10-16 11:58] LABS: % Iron Saturation 18.1 % (20-50)
[2018-10-16] MEDS ORDERED: Acetaminophen 325 MG Tablet PO PRN (12:51)
[2018-10-16] MEDS ORDERED: Sodium Chlor 0.9% Inj 250 ML IV.SIG SCH (13:00)
--- NOTE | 2018-10-16 14:18 | P.CONGI ---
History of Present Illness Consult date: 10/16/18 Consult reason: Anemia Chief complaint: cellulitis History of Present Illness: This is a 62-year-old male with past medical history significant for diabetes mellitus, hypertension and peripheral vascular disease. Patient presented to the emergency department with a one-week complaint of left lower extremity swelling and redness. Patient is currently being treated for cellulitis. Our service has been consulted to evaluate patient for anemia. Patient presented with hemoglobin of 8.2 which is been slowly trending down since admission. Patient is very poor historian. He reports that he might of had a history of anemia in the past and believes that he has had a previous blood transfusion. He is unsure if he has been on iron or B12 supplementation in the past. He denies any obvious source of bleeding including hematemesis, coffee-ground emesis, hematochezia or melena. Denies any abdominal pain. Patient also reports a 20 pound unintentional weight loss over the past 4-5 months. Patient is not on any blood thinners. He denies any NSAID use. Denies any alcohol use. Denies any nicotine use. Patient has never had EGD or colonoscopy in the past. Denies any family history of colon cancer. <Kathy Borden - Last Filed: 10/16/18 14:08> Review of Systems Gastrointestinal: Denies abdominal pain, Denies change in bowel habits, Denies nausea, Denies vomiting <Kathy Borden - Last Filed: 10/16/18 14:08> PMFSH - History History Provided By: Patient - Medical History Medical History: Medical History (Last Reviewed 10/15/18 @ 19:31 by Fer Ward) Amputated toe of right foot Diabetes GERD (gastroesophageal reflux disease) Hypertension Peripheral vascular disease - Surgical History Surgical History: Surgical History (Last Reviewed 10/15/18 @ 19:31 by Fer Ward) History of open heart surgery - Tobacco History Second Hand Smoke Exposure: No Smoking Status: Never smoker - Alcohol History How Often Do You Have a Drink Containing Alcohol: Never - Substance Use History Substance History: No History of Abuse - Travel History Recent Travel in the [place] Within the Last 8 Weeks: No Recent Travel Out of the Country Within the Last 8 Weeks: No - Immunization History Tetanus Immunization: Unsure <Kathy Borden - Last Filed: 10/16/18 14:08> - Medical History Medical History: Medical History (Last Reviewed 10/15/18 @ 19:31 by Fer Wadr) Amputated toe of right foot Diabetes GERD (gastroesophageal reflux disease) Hypertension Peripheral vascular disease - Surgical History Surgical History: Surgical History (Last Reviewed 10/15/18 @ 19:31 by Fer Ward) History of open heart surgery <Kristian Echeverria - Last Filed: 10/16/18 17:45> Medications and Allergies Active Medications: Active Medications Acetaminophen (Tylenol) 650 mg PO Q4H PRN PRN Reason: Temp > 100.4 Last Admin: 10/16/18 00:14 Dose: 650 mg Acetaminophen (Tylenol) 650 mg PO Q4H PRN PRN Reason: SEE LABEL COMMENTS Al Hydroxide/Mg Hydroxide (Milk Of Danielle Longoria) 30 ml PO Q12H PRN PRN Reason: Mild Constipation Bisacodyl (Dulcolax Supp) 10 mg RECTAL DAILY PRN PRN Reason: SEVERE CONSITIPATION Dextrose (D50w Vial) 50 ml IV.PUSH UNSCH PRN PRN Reason: PER HYPOGLYCEMIA PROTOCOL Diphenhydramine HCl (Benadryl) 25 mg PO Q4H PRN PRN Reason: SEE LABEL COMMENTS Glucagon (Glucagon Inj) 1 mg OTHER PRN PRN PRN Reason: for Hypoglycemia Protocol Heparin Sodium (Porcine) (Heparin Inj) 5,000 units SQ Q12H [facility] Last Admin: 10/16/18 08:57 Dose: 5,000 units Sodium Chloride (Ns Inj) 1,000 mls @ 125 mls/hr IV.CONT .Q8H [facility] Last Admin: 10/16/18 12:20 Dose: 125 mls/hr Cefepime HCl 1,000 mg/ Sodium (Chloride) 100 mls @ 200 mls/hr IV.SIG Q12H [facility] Last Infusion: 10/16/18 13:43 Dose: Infused Clindamycin Phosphate 600 mg/ (Sodium Chloride) 104 mls @ 200 mls/hr IV.SIG Q8H [facility] Last Infusion: 10/16/18 10:15 Dose: Infused Daptomycin 500 mg/ Sodium (Chloride) 100 mls @ 200 mls/hr IV.SIG Q48H [facility] Last Infusion: 10/15/18 18:56 Dose: Infused Sodium Chloride (Ns Inj) 250 mls @ 15 mls/hr IV.SIG ONCE [facility] Stop: 10/17/18 05:39 Insulin Aspart (Novolog Insulin Correctional Sugar Inj) 0 unit SQ ACHS [facility]; Protocol Last Admin: 10/16/18 12:21 Dose: 1 unit Lactulose (Lactulose Liq) 30 ml PO DAILY PRN PRN Reason: SEVERE CONSITIPATION Ondansetron HCl (Zofran Inj) 4 mg IV.PUSH Q6H PRN PRN Reason: NAUSEA OR VOMITING Senna/Docusate Sodium (Pema-Colace) 1 tab PO BID [facility] Last Admin: 10/16/18 08:57 Dose: 1 tab Sennosides (Senokot) 17.2 mg PO Q12H PRN PRN Reason: Moderate Constipation Sodium Chloride (Ns Flush) 2 ml IV.FLUSH PRN PRN PRN Reason: FLUSH AFTER USING IV ACCESS Sodium Chloride (Ns Flush) 2 ml IV.FLUSH BID [facility] Last Admin: 10/16/18 08:57 Dose: 2 ml <Kathy Borden - Last Filed: 10/16/18 14:08> Active Medications: Active Medications Acetaminophen (Tylenol) 650 mg PO Q4H PRN PRN Reason: Temp > 100.4 Last Admin: 10/16/18 00:14 Dose: 650 mg Acetaminophen (Tylenol) 650 mg PO Q4H PRN PRN Reason: SEE LABEL COMMENTS Al Hydroxide/Mg Hydroxide (Milk Of Magnheather Liq) 30 ml PO Q12H PRN PRN Reason: Mild Constipation Bisacodyl (Dulcolax Supp) 10 mg RECTAL DAILY PRN PRN Reason: SEVERE CONSITIPATION Collagenase (Santyl Oint) 1 applicatio TOPICAL DAILY [facility] Last Admin: 10/16/18 16:08 Dose: 1 applicatio Dextrose (D50w Vial) 50 ml IV.PUSH UNSCH PRN PRN Reason: PER HYPOGLYCEMIA PROTOCOL Diphenhydramine HCl (Benadryl) 25 mg PO Q4H PRN PRN Reason: SEE LABEL COMMENTS Glucagon (Glucagon Inj) 1 mg OTHER PRN PRN PRN Reason: for Hypoglycemia Protocol Heparin Sodium (Porcine) (Heparin Inj) 5,000 units SQ Q12H [facility] Last Admin: 10/16/18 08:57 Dose: 5,000 units Cefepime HCl 1,000 mg/ Sodium (Chloride) 100 mls @ 200 mls/hr IV.SIG Q12H [facility] Last Infusion: 10/16/18 13:43 Dose: Infused Clindamycin Phosphate 600 mg/ (Sodium Chloride) 104 mls @ 200 mls/hr IV.SIG Q8H [facility] Last Infusion: 10/16/18 16:36 Dose: Infused Daptomycin 500 mg/ Sodium (Chloride) 100 mls @ 200 mls/hr IV.SIG Q48H [facility] Last Infusion: 10/15/18 18:56 Dose: Infused Sodium Chloride (Ns Inj) 250 mls @ 15 mls/hr IV.SIG ONCE [facility] Stop: 10/17/18 05:39 Insulin Aspart (Novolog Insulin Correctional Sugar Inj) 0 unit SQ ACHS [facility]; Protocol Last Admin: 10/16/18 17:08 Dose: 1 unit Lactulose (Lactulose Liq) 30 ml PO DAILY PRN PRN Reason: SEVERE CONSITIPATION Ondansetron HCl (Zofran Inj) 4 mg IV.PUSH Q6H PRN PRN Reason: NAUSEA OR VOMITING Senna/Docusate Sodium (Pema-Colace) 1 tab PO BID [facility] Last Admin: 10/16/18 08:57 Dose: 1 tab Sennosides (Senokot) 17.2 mg PO Q12H PRN PRN Reason: Moderate Constipation Sodium Chloride (Ns Flush) 2 ml IV.FLUSH PRN PRN PRN Reason: FLUSH AFTER USING IV ACCESS Sodium Chloride (Ns Flush) 2 ml IV.FLUSH BID [facility] Last Admin: 10/16/18 08:57 Dose: 2 ml <Kristian Echeverria A - Last Filed: 10/16/18 17:45> Allergies Allergy/AdvReac Type Severity Reaction Status Date / Time No Known Allergies Allergy Verified 10/14/18 22:12 Home Medications Medication Instructions Recorded Confirmed Type metformin 500 mg PO BID 10/14/18 10/14/18 History Exam Vital signs: Vital Signs 10/15/18 16:00 10/15/18 20:00 10/16/18 00:00 Temperature 98.8 F 100 F H 101.8 F H Pulse Rate 101 H 110 H 121 H Respiratory Rate 18 22 20 Blood Pressure 95/55 L 111/56 L 115/56 L Pulse Oximetry 96 97 95 10/16/18 04:00 10/16/18 07:32 10/16/18 11:40 Temperature 96.8 F L 98.0 F 98.0 F Pulse Rate 98 H 105 H 112 H Respiratory Rate 20 16 16 Blood Pressure 109/59 L 125/66 121/64 Pulse Oximetry 97 98 99 Intake & Output 10/15/18 10/16/18 10/16/18 18:59 06:59 18:59 Intake Total 1554 / 1554 2204 / 2204 1204 / 1204 Output Total 975 / 975 Balance 579 / 579 2204 / 2204 1204 / 1204 Intake: IV 1554 / 1554 2204 / 2204 1204 / 1204 NS Inj 1,000 ML @ 125 mls/hr IV 1000 / 1000 2000 / 2000 1000 / 1000 .CONT .Q8H [facility] Rx#:[id number] Maxipime Inj 1,000 MG In NS Inj 100 / 100 100 / 100 100 / 100 100 ML @ 200 mls/hr IV.SIG Q12H [facility] Rx#:[id number] Cleocin Inj 600 MG In NS Inj 104 / 104 104 / 104 104 / 104 100 ML @ 200 mls/hr IV.SIG Q8H [facility] Rx#:[id number] Cubicin Inj 500 MG In NS Inj 100 / 100 100 ML @ 200 mls/hr IV.SIG Q48H [facility] Rx#:[id number] Vancomycin Inj 1,000 MG In NS 250 / 250 Inj 250 ML @ 250 mls/hr IV.SIG Q24H [facility] Rx#:[id number] Output: Urine 975 / 975 - Constitutional no acute distress - Routine HEENT Exam Head: Present: normocephalic, atraumatic - Routine Respiratory Exam Absent: accessory muscle use - Routine Abdominal Exam Present: soft, normoactive bowel sounds. Absent: tenderness, distended - Routine Skin Exam Present: dry, warm Comments: Swelling and weeping from left lower extremity - Routine Neurological Exam Present: alert, oriented X3 <Kathy Broden - Last Filed: 10/16/18 14:08> Vital signs: Vital Signs 10/15/18 20:00 10/16/18 00:00 10/16/18 04:00 Temperature 100 F H 101.8 F H 96.8 F L Pulse Rate 110 H 121 H 98 H Respiratory Rate 22 20 20 Blood Pressure 111/56 L 115/56 L 109/59 L Pulse Oximetry 97 95 97 10/16/18 07:32 10/16/18 11:40 10/16/18 15:28 Temperature 98.0 F 98.0 F 99.4 F Pulse Rate 105 H 112 H 114 H Respiratory Rate 16 16 16 Blood Pressure 125/66 121/64 128/81 Pulse Oximetry 98 99 99 Intake & Output 10/15/18 10/16/18 10/16/18 18:59 06:59 18:59 Intake Total 1554 / 1554 2204 / 2204 1808 / 1808 Output Total 975 / 975 Balance 579 / 579 2204 / 2204 1808 / 1808 Intake: IV 1554 / 1554 2204 / 2204 1808 / 1808 NS Inj 1,000 ML @ 125 mls/hr IV 1000 / 1000 2000 / 2000 1500 / 1500 .CONT .Q8H [facility] Rx#:[id number] Maxipime Inj 1,000 MG In NS Inj 100 / 100 100 / 100 100 / 100 100 ML @ 200 mls/hr IV.SIG Q12H [facility] Rx#:[id number] Cleocin Inj 600 MG In NS Inj 104 / 104 104 / 104 208 / 208 100 ML @ 200 mls/hr IV.SIG Q8H [facility] Rx#:[id number] Cubicin Inj 500 MG In NS Inj 100 / 100 100 ML @ 200 mls/hr IV.SIG Q48H [facility] Rx#:[id number] Vancomycin Inj 1,000 MG In NS 250 / 250 Inj 250 ML @ 250 mls/hr IV.SIG Q24H [facility] Rx#:[id number] Output: Urine 975 / 975 <Krisitan Echeverria A - Last Filed: 10/16/18 17:45> Results - Labs CBC & Chem 7: 10/16/18 09:52 10/16/18 09:52 Labs: Laboratory Results - last 24 hr 10/15/18 10/15/18 10/15/18 11:45 11:45 14:45 WBC RBC Hgb Hct MCV MCH MCHC RDW Plt Count MPV Prelim Diff (Auto) Neut % (Auto) Lymph % (Auto) [place] % (Auto) Eos % (Auto) Baso % (Auto) Neut # (Auto) Lymph # (Auto) [place] # (Auto) Eos # (Auto) Baso # (Auto) WBC Differential Seg Neuts % (Manual) Band Neuts % (Manual) Lymphocytes % (Manual) Monocytes % (Manual) Abs Neuts (Manual) Differential Comment Toxic Granulation Platelet Estimate Platelet Morphology Sodium Potassium Chloride Carbon Dioxide Anion Gap BUN Creatinine Estimated GFR POC Glucose Random Glucose Calcium Iron TIBC % Saturation Ferritin Total Bilirubin AST ALT Alkaline Phosphatase Ammonia 13 Total Creatine Kinase Total Protein Albumin Vitamin B12 Urine Color Yellow Urine Clarity Hazy H Urine pH 5.0 Ur Specific [place] 1.013 Urine Protein Negative Urine Glucose (UA) 500 or greater Urine Ketones Negative Urine Occult Blood Small H Urine Nitrate Negative Urine Bilirubin Negative Urine Urobilinogen 4 or greater Ur Leukocyte Esterase Negative Urine RBC 1 Urine WBC 1 Amorphous Sediment Moderate H Urine Bacteria Rare H Hyaline Casts 3 Urine Mucus Few H Micro UA Comment Culture not ind Ur Microscopic Review Not Reportable Urine Culture Comments Culture not ind Urine Opiates Screen Neg Ur Barbiturates Screen Neg Ur Amphetamines Screen Neg U Benzodiazepines Scrn Neg Urine Cocaine Screen Neg U Cannabinoids Screen Pos H 10/15/18 10/15/18 10/15/18 16:40 16:40 17:08 WBC RBC Hgb 7.2 L Hct 22.8 L MCV MCH MCHC RDW Plt Count MPV Prelim Diff (Auto) Neut % (Auto) Lymph % (Auto) [place] % (Auto) Eos % (Auto) Baso % (Auto) Neut # (Auto) Lymph # (Auto) [place] # (Auto) Eos # (Auto) Baso # (Auto) WBC Differential Seg Neuts % (Manual) Band Neuts % (Manual) Lymphocytes % (Manual) Monocytes % (Manual) Abs Neuts (Manual) Differential Comment Toxic Granulation Platelet Estimate Platelet Morphology Sodium Potassium Chloride Carbon Dioxide Anion Gap BUN Creatinine Estimated GFR POC Glucose 204 H Random Glucose Calcium Iron TIBC % Saturation Ferritin Total Bilirubin AST ALT Alkaline Phosphatase Ammonia Total Creatine Kinase 41 Total Protein Albumin Vitamin B12 Urine Color Urine Clarity Urine pH Ur Specific [place] Urine Protein Urine Glucose (UA) Urine Ketones Urine Occult Blood Urine Nitrate Urine Bilirubin Urine Urobilinogen Ur Leukocyte Esterase Urine RBC Urine WBC Amorphous Sediment Urine Bacteria Hyaline Casts Urine Mucus Micro UA Comment Ur Microscopic Review Urine Culture Comments Urine Opiates Screen Ur Barbiturates Screen Ur Amphetamines Screen U Benzodiazepines Scrn Urine Cocaine Screen U Cannabinoids Screen 10/15/18 10/16/18 10/16/18 22:23 08:02 09:52 WBC 19.3 H RBC 2.29 L Hgb 6.8 L* Hct 21.5 L MCV 94.1 MCH 29.8 MCHC 31.6 L RDW 14.5 Plt Count 312 MPV 8.5 Prelim Diff (Auto) Slide review pending Neut % (Auto) 92.4 H Lymph % (Auto) 1.3 L [place] % (Auto) 6.2 Eos % (Auto) 0.0 Baso % (Auto) 0.1 Neut # (Auto) 17.8 H Lymph # (Auto) 0.2 L [place] # (Auto) 1.2 H Eos # (Auto) 0.0 Baso # (Auto) 0.0 WBC Differential Manual diff final Seg Neuts % (Manual) 81 H Band Neuts % (Manual) 8 H Lymphocytes % (Manual) 3 L Monocytes % (Manual) 8 Abs Neuts (Manual) 17.2 H Differential Comment . Toxic Granulation 2+ H Platelet Estimate Normal Platelet Morphology Normal Sodium Potassium Chloride Carbon Dioxide Anion Gap BUN Creatinine Estimated GFR POC Glucose 185 H 180 H Random Glucose Calcium Iron TIBC % Saturation Ferritin Total Bilirubin AST ALT Alkaline Phosphatase Ammonia Total Creatine Kinase Total Protein Albumin Vitamin B12 Urine Color Urine Clarity Urine pH Ur Specific [place] Urine Protein Urine Glucose (UA) Urine Ketones Urine Occult Blood Urine Nitrate Urine Bilirubin Urine Urobilinogen Ur Leukocyte Esterase Urine RBC Urine WBC Amorphous Sediment Urine Bacteria Hyaline Casts Urine Mucus Micro UA Comment Ur Microscopic Review Urine Culture Comments Urine Opiates Screen Ur Barbiturates Screen Ur Amphetamines Screen U Benzodiazepines Scrn Urine Cocaine Screen U Cannabinoids Screen 10/16/18 10/16/18 10/16/18 09:52 09:52 11:59 WBC RBC Hgb Hct MCV MCH MCHC RDW Plt Count MPV Prelim Diff (Auto) Neut % (Auto) Lymph % (Auto) [place] % (Auto) Eos % (Auto) Baso % (Auto) Neut # (Auto) Lymph # (Auto) [place] # (Auto) Eos # (Auto) Baso # (Auto) WBC Differential Seg Neuts % (Manual) Band Neuts % (Manual) Lymphocytes % (Manual) Monocytes % (Manual) Abs Neuts (Manual) Differential Comment Toxic Granulation Platelet Estimate Platelet Morphology Sodium 137 Potassium 3.4 L Chloride 105 Carbon Dioxide 21.2 Anion Gap 11 BUN 45 H Creatinine 1.59 H Estimated GFR 54 L POC Glucose 169 H Random Glucose 130 H Calcium 8.2 L Iron 18 L TIBC 99 L % Saturation 18.1 L Ferritin 1471 H Total Bilirubin 0.8 AST 73 H ALT 32 Alkaline Phosphatase 114 Ammonia Total Creatine Kinase Total Protein 8.0 D Albumin 1.6 L Vitamin B12 1152 H Urine Color Urine Clarity Urine pH Ur Specific [place] Urine Protein Urine Glucose (UA) Urine Ketones Urine Occult Blood Urine Nitrate Urine Bilirubin Urine Urobilinogen Ur Leukocyte Esterase Urine RBC Urine WBC Amorphous Sediment Urine Bacteria Hyaline Casts Urine Mucus Micro UA Comment Ur Microscopic Review Urine Culture Comments Urine Opiates Screen Ur Barbiturates Screen Ur Amphetamines Screen U Benzodiazepines Scrn Urine Cocaine Screen U Cannabinoids Screen <Kathy Borden - Last Filed: 10/16/18 14:08> - Labs CBC & Chem 7: 10/16/18 09:52 10/16/18 09:52 Labs: Laboratory Results - last 24 hr 10/15/18 10/15/18 10/15/18 11:45 11:45 16:40 WBC RBC Hgb 7.2 L Hct 22.8 L MCV MCH MCHC RDW Plt Count MPV Prelim Diff (Auto) Neut % (Auto) Lymph % (Auto) [place] % (Auto) Eos % (Auto) Baso % (Auto) Neut # (Auto) Lymph # (Auto) [place] # (Auto) Eos # (Auto) Baso # (Auto) WBC Differential Seg Neuts % (Manual) Band Neuts % (Manual) Lymphocytes % (Manual) Monocytes % (Manual) Abs Neuts (Manual) Differential Comment Toxic Granulation Platelet Estimate Platelet Morphology Retic Count Absolute Retic Haptoglobin Sodium Potassium Chloride Carbon Dioxide Anion Gap BUN Creatinine Estimated GFR POC Glucose Random Glucose Calcium Iron TIBC % Saturation Ferritin Total Bilirubin AST ALT Alkaline Phosphatase Lactate Dehydrogenase Total Creatine Kinase Total Protein Albumin Vitamin B12 Urine Color Yellow Urine Clarity Hazy H Urine pH 5.0 Ur Specific [place] 1.013 Urine Protein Negative Urine Glucose (UA) 500 or greater Urine Ketones Negative Urine Occult Blood Small H Urine Nitrate Negative Urine Bilirubin Negative Urine Urobilinogen 4 or greater Ur Leukocyte Esterase Negative Urine RBC 1 Urine WBC 1 Amorphous Sediment Moderate H Urine Bacteria Rare H Hyaline Casts 3 Urine Mucus Few H Micro UA Comment Culture not ind Ur Microscopic Review Not Reportable Urine Culture Comments Culture not ind Urine Opiates Screen Neg Ur Barbiturates Screen Neg Ur Amphetamines Screen Neg U Benzodiazepines Scrn Neg Urine Cocaine Screen Neg U Cannabinoids Screen Pos H Blood Type Blood Type Recheck Antibody Screen MTS Gel Crossmatch Bld Prod Order Comment 10/15/18 10/15/18 10/16/18 16:40 22:23 08:02 WBC RBC Hgb Hct MCV MCH MCHC RDW Plt Count MPV Prelim Diff (Auto) Neut % (Auto) Lymph % (Auto) [place] % (Auto) Eos % (Auto) Baso % (Auto) Neut # (Auto) Lymph # (Auto) [place] # (Auto) Eos # (Auto) Baso # (Auto) WBC Differential Seg Neuts % (Manual) Band Neuts % (Manual) Lymphocytes % (Manual) Monocytes % (Manual) Abs Neuts (Manual) Differential Comment Toxic Granulation Platelet Estimate Platelet Morphology Retic Count Absolute Retic Haptoglobin Sodium Potassium Chloride Carbon Dioxide Anion Gap BUN Creatinine Estimated GFR POC Glucose 185 H 180 H Random Glucose Calcium Iron TIBC % Saturation Ferritin Total Bilirubin AST ALT Alkaline Phosphatase Lactate Dehydrogenase Total Creatine Kinase 41 Total Protein Albumin Vitamin B12 Urine Color Urine Clarity Urine pH Ur Specific [place] Urine Protein Urine Glucose (UA) Urine Ketones Urine Occult Blood Urine Nitrate Urine Bilirubin Urine Urobilinogen Ur Leukocyte Esterase Urine RBC Urine WBC Amorphous Sediment Urine Bacteria Hyaline Casts Urine Mucus Micro UA Comment Ur Microscopic Review Urine Culture Comments Urine Opiates Screen Ur Barbiturates Screen Ur Amphetamines Screen U Benzodiazepines Scrn Urine Cocaine Screen U Cannabinoids Screen Blood Type Blood Type Recheck Antibody Screen MTS Gel Crossmatch Bld Prod Order Comment 10/16/18 10/16/18 10/16/18 09:52 09:52 09:52 WBC 19.3 H RBC 2.29 L Hgb 6.8 L* Hct 21.5 L MCV 94.1 MCH 29.8 MCHC 31.6 L RDW 14.5 Plt Count 312 MPV 8.5 Prelim Diff (Auto) Slide review pending Neut % (Auto) 92.4 H Lymph % (Auto) 1.3 L [place] % (Auto) 6.2 Eos % (Auto) 0.0 Baso % (Auto) 0.1 Neut # (Auto) 17.8 H Lymph # (Auto) 0.2 L [place] # (Auto) 1.2 H Eos # (Auto) 0.0 Baso # (Auto) 0.0 WBC Differential Manual diff final Seg Neuts % (Manual) 81 H Band Neuts % (Manual) 8 H Lymphocytes % (Manual) 3 L Monocytes % (Manual) 8 Abs Neuts (Manual) 17.2 H Differential Comment . Toxic Granulation 2+ H Platelet Estimate Normal Platelet Morphology Normal Retic Count Absolute Retic Haptoglobin Sodium 137 Potassium 3.4 L Chloride 105 Carbon Dioxide 21.2 Anion Gap 11 BUN 45 H Creatinine 1.59 H Estimated GFR 54 L POC Glucose Random Glucose 130 H Calcium 8.2 L Iron 18 L TIBC 99 L % Saturation 18.1 L Ferritin 1471 H Total Bilirubin 0.8 AST 73 H ALT 32 Alkaline Phosphatase 114 Lactate Dehydrogenase Total Creatine Kinase Total Protein 8.0 D Albumin 1.6 L Vitamin B12 1152 H Urine Color Urine Clarity Urine pH Ur Specific [place] Urine Protein Urine Glucose (UA) Urine Ketones Urine Occult Blood Urine Nitrate Urine Bilirubin Urine Urobilinogen Ur Leukocyte Esterase Urine RBC Urine WBC Amorphous Sediment Urine Bacteria Hyaline Casts Urine Mucus Micro UA Comment Ur Microscopic Review Urine Culture Comments Urine Opiates Screen Ur Barbiturates Screen Ur Amphetamines Screen U Benzodiazepines Scrn Urine Cocaine Screen U Cannabinoids Screen Blood Type Blood Type Recheck Antibody Screen MTS Gel Crossmatch Bld Prod Order Comment 10/16/18 10/16/18 10/16/18 11:59 14:34 14:34 WBC RBC Hgb Hct MCV MCH MCHC RDW Plt Count MPV Prelim Diff (Auto) Neut % (Auto) Lymph % (Auto) [place] % (Auto) Eos % (Auto) Baso % (Auto) Neut # (Auto) Lymph # (Auto) [place] # (Auto) Eos # (Auto) Baso # (Auto) WBC Differential Seg Neuts % (Manual) Band Neuts % (Manual) Lymphocytes % (Manual) Monocytes % (Manual) Abs Neuts (Manual) Differential Comment Toxic Granulation Platelet Estimate Platelet Morphology Retic Count 1.2 Absolute Retic 28.3 Haptoglobin Sodium Potassium Chloride Carbon Dioxide Anion Gap BUN Creatinine Estimated GFR POC Glucose 169 H Random Glucose Calcium Iron TIBC % Saturation Ferritin Total Bilirubin AST ALT Alkaline Phosphatase Lactate Dehydrogenase Total Creatine Kinase Total Protein Albumin Vitamin B12 Urine Color Urine Clarity Urine pH Ur Specific [place] Urine Protein Urine Glucose (UA) Urine Ketones Urine Occult Blood Urine Nitrate Urine Bilirubin Urine Urobilinogen Ur Leukocyte Esterase Urine RBC Urine WBC Amorphous Sediment Urine Bacteria Hyaline Casts Urine Mucus Micro UA Comment Ur Microscopic Review Urine Culture Comments Urine Opiates Screen Ur Barbiturates Screen Ur Amphetamines Screen U Benzodiazepines Scrn Urine Cocaine Screen U Cannabinoids Screen Blood Type B Positive Blood Type Recheck Not needed Antibody Screen Negative MTS Gel Crossmatch See Detail Bld Prod Order Comment 10/16/18 10/16/18 14:34 17:05 WBC RBC Hgb Hct MCV MCH MCHC RDW Plt Count MPV Prelim Diff (Auto) Neut % (Auto) Lymph % (Auto) [place] % (Auto) Eos % (Auto) Baso % (Auto) Neut # (Auto) Lymph # (Auto) [place] # (Auto) Eos # (Auto) Baso # (Auto) WBC Differential Seg Neuts % (Manual) Band Neuts % (Manual) Lymphocytes % (Manual) Monocytes % (Manual) Abs Neuts (Manual) Differential Comment Toxic Granulation Platelet Estimate Platelet Morphology Retic Count Absolute Retic Haptoglobin 434 H Sodium Potassium Chloride Carbon Dioxide Anion Gap BUN Creatinine Estimated GFR POC Glucose 151 H Random Glucose Calcium Iron 16 L TIBC 105 L % Saturation 15.2 L Ferritin 1449 H Total Bilirubin AST ALT Alkaline Phosphatase Lactate Dehydrogenase 174 Total Creatine Kinase Total Protein Albumin Vitamin B12 Urine Color Urine Clarity Urine pH Ur Specific [place] Urine Protein Urine Glucose (UA) Urine Ketones Urine Occult Blood Urine Nitrate Urine Bilirubin Urine Urobilinogen Ur Leukocyte Esterase Urine RBC Urine WBC Amorphous Sediment Urine Bacteria Hyaline Casts Urine Mucus Micro UA Comment Ur Microscopic Review Urine Culture Comments Urine Opiates Screen Ur Barbiturates Screen Ur Amphetamines Screen U Benzodiazepines Scrn Urine Cocaine Screen U Cannabinoids Screen Blood Type Blood Type Recheck Antibody Screen MTS Gel Crossmatch Bld Prod Order Comment <JuwanMaxicarey Sr - Last Filed: 10/16/18 17:45> Assessment and Plan - Plan Assessment Anemianormocytic normochromicpatient denies any obvious source of bleeding including hematochezia, melena, hematemesis and coffee-ground emesis. Patient is unsure of previous history of anemia, states that he thinks he has had blood transfusion in the past. He is unsure if he is ever been on iron or B12 supplements. He is unsure of any family history significant for anemia. Patient denies taking any NSAIDs, blood thinners. He denies any alcohol use or nicotine use. Patient denies previous EGD or colonoscopy. Denies any family history significant for colon cancer. Unintentional weight losspatient reports 20 pound weight loss over the past 4- 5 months, he is unsure the etiology. Cellulitisper primary team-patient has been febrile Plan Hemoccult stool pending EGD/colonoscopy pending findings and when pt remains afebrile Will follow up tomorrow for further recommendations Agree with iron panel and labs to rule out hemolysis vs bone marrow suppression Monitor H/H Transfuse per primary team CT abdomen/pelvis to evaluate for unintentional weight loss Further recommendations to follow This patient has been seen and examined by myself and Dr. Echeverria and this note is written on his behalf <Kathy Borden - Last Filed: 10/16/18 14:08> - Attending Attestation Seen and examined, plan as above. Thank you for the consult. <Kristian Echeverria - Last Filed: 10/16/18 17:45>
[2018-10-16] MEDS ORDERED: Diatrizoate Meglum/Diatrizoate Sod Liq 9 ML UDC PO ONE (14:30)
--- NOTE | 2018-10-16 14:44 | P.PNID ---
Subjective Remarks: Patient is a 62-year-old male, presented to the hospital complaining of swelling and pain in his left lower extremity. He could not really tell me how long it has been there. He denies any trauma, denies any previous episode of cellulitis in the left lower extremity. He denies any fever chills or sweats. But since his been here he had been febrile up to 101+. He denies any sore throat or any respiratory complaint. Denies any nausea or vomiting, GI or any urinary complaints. On presentation his WBC was 23,000. His creatinine was up to 2.06. CT of the left lower extremity did not show any abscess, osteophyte just significant swelling compatible with cellulitis. He is on cefepime and vancomycin Infectious disease consultation has been requested to assist with evaluation and treatment of his cellulitis. Notes reviewed Last fever at midnight Notes increased redness Not elevating LLE WBC lower Creatinine better C/S pending Antibiotics: Cubicin Cefepime Clindamycin Past Medical History: Past HX: hypertension, diabetes mellitus, coronary artery disease, CHF (last EF of 40% in 08/01) peripheral arterial disease, hyperlipidemia, depression, GERD and osteoarthritis Past Surgical History: CABG Right first toe amputation Left arm I&D for MRSA Allergies/Adverse Reactions: Allergies No Known Allergies Allergy (Verified 10/14/18 22:12) Objective Vital Signs 10/15/18 16:00 10/15/18 20:00 10/16/18 00:00 Temperature 98.8 F 100 F H 101.8 F H Pulse Rate 101 H 110 H 121 H Respiratory Rate 18 22 20 Blood Pressure 95/55 L 111/56 L 115/56 L Pulse Oximetry 96 97 95 10/16/18 04:00 10/16/18 07:32 10/16/18 11:40 Temperature 96.8 F L 98.0 F 98.0 F Pulse Rate 98 H 105 H 112 H Respiratory Rate 20 16 16 Blood Pressure 109/59 L 125/66 121/64 Pulse Oximetry 97 98 99 Intake & Output 10/15/18 10/16/18 10/16/18 18:59 06:59 18:59 Intake Total 1554 / 1554 2204 / 2204 1204 / 1204 Output Total 975 / 975 Balance 579 / 579 2204 / 2204 1204 / 1204 Intake: IV 1554 / 1554 2204 / 2204 1204 / 1204 NS Inj 1,000 ML @ 125 mls/hr IV 1000 / 1000 2000 / 2000 1000 / 1000 .CONT .Q8H JIMMY Rx#:[id number] Maxipime Inj 1,000 MG In NS Inj 100 / 100 100 / 100 100 / 100 100 ML @ 200 mls/hr IV.SIG Q12H JIMMY Rx#:[id number] Cleocin Inj 600 MG In NS Inj 104 / 104 104 / 104 104 / 104 100 ML @ 200 mls/hr IV.SIG Q8H JIMMY Rx#:[id number] Cubicin Inj 500 MG In NS Inj 100 / 100 100 ML @ 200 mls/hr IV.SIG Q48H JIMMY Rx#:[id number] Vancomycin Inj 1,000 MG In NS 250 / 250 Inj 250 ML @ 250 mls/hr IV.SIG Q24H JIMMY Rx#:[id number] Output: Urine 975 / 975 10/14/18 23:25 Blood - Peripheral Aerobic Blood Culture - Preliminary No growth in 2 days 10/14/18 23:25 Blood - Peripheral Anaerobic Blood Culture - Preliminary No growth in 2 days 10/14/18 23:30 Blood - Peripheral Aerobic Blood Culture - Preliminary No growth in 2 days 10/14/18 23:30 Blood - Peripheral Anaerobic Blood Culture - Preliminary No growth in 2 days Lab - Hematology Results 10/14/18 10/15/18 10/15/18 23:30 11:36 16:40 WBC 23.4 H 21.9 H RBC 2.69 L 2.45 L Hgb 8.2 L 7.3 L 7.2 L Hct 25.0 L 22.8 L 22.8 L MCV 93.0 93.1 MCH 30.6 30.0 MCHC 32.9 32.2 RDW 14.5 14.5 Plt Count 296 308 MPV 8.9 8.2 Prelim Diff (Auto) Slide review pending Slide review pending Neut % (Auto) 91.5 H 93.8 H Lymph % (Auto) 2.3 L 1.3 L Barnes % (Auto) 5.0 4.4 Eos % (Auto) 0.2 0.3 Baso % (Auto) 1.0 0.2 Neut # (Auto) 21.4 H 20.6 H Lymph # (Auto) 0.5 L 0.3 L Barnes # (Auto) 1.2 H 1.0 H Eos # (Auto) 0.0 0.1 Baso # (Auto) 0.2 0.0 WBC Differential Manual diff final Manual diff final Seg Neuts % (Manual) 87 H 79 H Band Neuts % (Manual) 6 16 H Lymphocytes % (Manual) 4 L 2 L Monocytes % (Manual) 3 3 Abs Neuts (Manual) 21.8 H 20.8 H Differential Comment . . Toxic Granulation 1+ H 2+ H Toxic Vacuolation Present H Dohle Bodies Present H Present H Platelet Estimate Normal Normal Platelet Morphology Normal Normal 10/16/18 09:52 WBC 19.3 H RBC 2.29 L Hgb 6.8 L* Hct 21.5 L MCV 94.1 MCH 29.8 MCHC 31.6 L RDW 14.5 Plt Count 312 MPV 8.5 Prelim Diff (Auto) Slide review pending Neut % (Auto) 92.4 H Lymph % (Auto) 1.3 L Barnes % (Auto) 6.2 Eos % (Auto) 0.0 Baso % (Auto) 0.1 Neut # (Auto) 17.8 H Lymph # (Auto) 0.2 L Barnes # (Auto) 1.2 H Eos # (Auto) 0.0 Baso # (Auto) 0.0 WBC Differential Manual diff final Seg Neuts % (Manual) 81 H Band Neuts % (Manual) 8 H Lymphocytes % (Manual) 3 L Monocytes % (Manual) 8 Abs Neuts (Manual) 17.2 H Differential Comment . Toxic Granulation 2+ H Toxic Vacuolation Dohle Bodies Platelet Estimate Normal Platelet Morphology Normal Lab - Chemistry Results 10/14/18 10/14/18 10/15/18 23:30 23:36 08:27 Sodium 132 L Potassium 4.0 Chloride 96 L Carbon Dioxide 23.6 Anion Gap 12 BUN 59 H Creatinine 2.06 H Estimated GFR 40 L POC Glucose 162 H Random Glucose 157 H Lactic Acid 1.9 Calcium 8.9 Iron TIBC % Saturation Ferritin Total Bilirubin 1.1 H AST 94 H ALT 49 Alkaline Phosphatase 127 H Ammonia Total Creatine Kinase Total Protein 8.6 H Albumin 2.0 L Vitamin B12 10/15/18 10/15/18 10/15/18 11:36 11:36 12:25 Sodium 136 Potassium 3.7 Chloride 102 Carbon Dioxide 24.7 Anion Gap 9 BUN 59 H Creatinine 2.04 H Estimated GFR 40 L POC Glucose 166 H Random Glucose 155 H Lactic Acid 1.2 Calcium 8.0 L D Iron TIBC % Saturation Ferritin Total Bilirubin AST ALT Alkaline Phosphatase Ammonia Total Creatine Kinase Total Protein Albumin Vitamin B12 10/15/18 10/15/18 10/15/18 14:45 16:40 17:08 Sodium Potassium Chloride Carbon Dioxide Anion Gap BUN Creatinine Estimated GFR POC Glucose 204 H Random Glucose Lactic Acid Calcium Iron TIBC % Saturation Ferritin Total Bilirubin AST ALT Alkaline Phosphatase Ammonia 13 Total Creatine Kinase 41 Total Protein Albumin Vitamin B12 10/15/18 10/16/18 10/16/18 22:23 08:02 09:52 Sodium 137 Potassium 3.4 L Chloride 105 Carbon Dioxide 21.2 Anion Gap 11 BUN 45 H Creatinine 1.59 H Estimated GFR 54 L POC Glucose 185 H 180 H Random Glucose 130 H Lactic Acid Calcium 8.2 L Iron TIBC % Saturation Ferritin Total Bilirubin 0.8 AST 73 H ALT 32 Alkaline Phosphatase 114 Ammonia Total Creatine Kinase Total Protein 8.0 D Albumin 1.6 L Vitamin B12 10/16/18 10/16/18 09:52 11:59 Sodium Potassium Chloride Carbon Dioxide Anion Gap BUN Creatinine Estimated GFR POC Glucose 169 H Random Glucose Lactic Acid Calcium Iron 18 L TIBC 99 L % Saturation 18.1 L Ferritin 1471 H Total Bilirubin AST ALT Alkaline Phosphatase Ammonia Total Creatine Kinase Total Protein Albumin Vitamin B12 1152 H Imaging: ITS Impressions Lower Extremity CT 10/15/18 00:00 CONCLUSION: 1. Cellulitis without abscess or osteomyelitis. Venous Doppler Study 10/15/18 00:00 CONCLUSION: 1. No sonographic evidence for left lower extremity DVT. Physical Exam: GENERAL: awake and alert, not in respiratory distress. SKIN: Warm and dry. No generalized rash, no ecchymoses and no evidence of embolic lesions. HEAD: Atraumatic. Normocephalic. No temporal wasting, or tenderness. EYES: Pale conjunctiva. No petechia or hemorrhage. Pupils equal, round and reactive to light. Extraocular movements full and intact. No scleral icterus. No injection or drainage. EARS, NOSE AND THROAT: Nose without bleeding or purulent nasal discharge. No sinus tenderness. Mucous membranes pink and moist. No oral lesions noted. No exudate. No oral thrush. NECK: Trachea midline. Supple and not tender, no meningeal signs CARDIOVASCULAR: Regular rate and rhythm. No murmurs, rubs or gallops heard RESPIRATORY: Clear to auscultation. Breath sounds equal bilaterally. No rales , wheezing or rhonchi ABDOMEN: Soft, non-tender, nondistended. Bowel sounds present and normoactive. No guarding. No rebound. No organomegaly. EXTREMITIES: No clubbing, cyanosis. LLE markedly swollen, but better, with redness up to his knee, with some areas of fat necrosis, with some oozing areas, Has dry skin on his L foot. RLE not swollen, well healed amputation of his big toe. No calf tenderness. NEUROLOGICAL: Awake and alert. Cranial nerves grossly intact. Motor grossly within normal limits. PSYCHIATRIC: Flat affect, calm and cooperative. LINE: No evidence of infection Assessment and Plan - Plan Impression Sepsis due to LLE cellulitis Cellulitis LLE Renal insufficiency, better Known DM Per records PVD Anemia Recommendation Continue cefepime Continue Cubicin Continue Clindamycin get wound C/S Elevate leg Wound care Monitor progress Explained plan to the patient
[2018-10-16 14:59] LABS: Reticulocyte Percent 1.2 % (0.4-3.0)
[2018-10-16 15:24] LABS: % Iron Saturation 15.2 % (20-50)
[2018-10-16] MEDS: Collagenase Oint 30 GM Tube TOPICAL SCH (16:08)
--- NOTE | 2018-10-16 21:40 | CT ---
EXAM DATE: 10/16/2018 9:05 PM EST AGE/SEX: 62 years / Male INDICATIONS: Unintentional weight loss. CLINICAL DATA: This is the patient's initial encounter. Patient reports that signs and symptoms have been present for 1 day and indicates a pain score of 5/10. MEDICAL/SURGICAL HISTORY: Diabetes. Gastroesophageal reflux disease. Hypertension. Periphera l vascular disease. . Open heart surgery. RADIATION DOSE: 6.64 CTDI (mGy) [place] [facility] [place] 02/08/2018. . TECHNIQUE: Multiple contiguous axial images were obtained through the abdomen. Images were obtained using multiple row detector helical technique. Using automated exposure control and adjustment of the mA and/or kV according to patient size, radiation dose was kept as low as reasonably achievable to o btain optimal diagnostic quality images. DICOM format image data is available electronically for rev iew and comparison. FINDINGS: There is minimal dependent atelectasis in the lungs. Previous sternotomy. No acute findings in the liver, spleen, adrenals, kidneys or pancreas. No calcified gallstones. There is a small amount free fluid in the pelvis. No free air. No bowel obstruction. Fat-containing u mbilical hernia. CONCLUSION: 1. No acute findings within the abdomen. Trace free fluid in the pelvis of unknown etiology. Electronically signed by: Juan Gonzales MD Board Certified Radiologist 10/16/2018 9:39 PM EST
[2018-10-17 00:38] LABS: Hematocrit 23.7 % (39.0-51.0); Hemoglobin 8.2 gm/dL (13.0-17.0)
[2018-10-17 05:12] LABS: Baso % (Auto) 0.2 % (0.0-2.0); Eos % (Auto) 0.1 % (0.0-4.0); Hematocrit 24.3 % (39.0-51.0); Hemoglobin 8.2 gm/dL (13.0-17.0); Lymph # (Auto) 0.7 th/mm3 (1.0-4.8); Lymph % (Auto) 3.7 % (9.0-44.0); Mean Corpuscular HGB Conc 33.9 % (32.0-36.0); Mean Corpuscular Hemoglobin 30.5 pg (27.0-34.0); Mean Corpuscular Volume 89.9 fL (80.0-100.0); Mean Platelet Volume 8.8 fL (7.0-11.0); Mono % (Auto) 5.4 % (0.0-8.0); Neut # (Auto) 16.2 th/mm3 (1.8-7.7); Neut % (Auto) 90.6 % (16.0-70.0); Platelet Count 285 th/mm3 (150-450); Red Cell Distribution Width 15.5 % (11.6-17.2); White Blood Count 17.9 th/mm3 (4.0-11.0)
[2018-10-17 05:28] LABS: Calcium 7.7 mg/dL (8.5-10.1); Carbon Dioxide 20.4 meq/L (21.0-32.0); Potassium 3.7 meq/L (3.5-5.1)
[2018-10-17] MEDS: Senna/Docusate Sodium 8.6/50 MG Tablet PO SCH ×2 (08:10→21:06)
[2018-10-17] MEDS: Insulin NovoLOG Aspart Correctional Sugar Inj SQ SCH ×4 (08:15→21:19)
--- NOTE | 2018-10-17 10:11 | P.PNGI ---
Subjective Interval history: Patient awake and alert Denies abdominal pain nausea or vomiting Denies any obvious bleeding Physical Exam Vital signs: Vital Signs 10/16/18 11:40 10/16/18 15:28 10/16/18 17:56 Temperature 98.0 F 99.4 F 99.7 F H Pulse Rate 112 H 114 H 101 H Respiratory Rate 16 16 16 Blood Pressure 121/64 128/81 139/77 Pulse Oximetry 99 99 10/16/18 18:31 10/16/18 19:48 10/16/18 20:00 Temperature 99.9 F H 100.1 F H Pulse Rate 118 H 112 H 104 H Respiratory Rate 16 18 Blood Pressure 126/68 141/68 H Pulse Oximetry 99 99 10/17/18 00:00 10/17/18 04:00 10/17/18 08:00 Temperature 99.5 F 99.2 F Pulse Rate 107 H 101 H 103 H Respiratory Rate 18 16 16 Blood Pressure 124/60 120/58 L 152/77 H Pulse Oximetry 98 98 Intake & Output 10/16/18 10/17/18 10/17/18 18:59 06:59 18:59 Intake Total 3149 / 3149 204 / 204 480 / 480 Balance 3149 / 3149 204 / 204 480 / 480 Intake: IV 1808 / 1808 204 / 204 NS Inj 1,000 ML @ 125 mls/hr IV 1500 / 1500 .CONT .Q8H JIMMY Rx#:[id number] Maxipime Inj 1,000 MG In NS Inj 100 / 100 100 / 100 100 ML @ 200 mls/hr IV.SIG Q12H JIMMY Rx#:[id number] Cleocin Inj 600 MG In NS Inj 208 / 208 104 / 104 100 ML @ 200 mls/hr IV.SIG Q8H JIMMY Rx#:[id number] Oral 480 / 480 Other 1341 / 1341 Intake (Blood Product) Amt 0 / 0 Rbc As-3 Leukoreduced Unit 0 / 0 [id number] Other: Other Intake Source Saline Solution # Voids 2 Date of Last Bowel Movement 10/13/18 - Constitutional no acute distress, chronically ill appearing - Routine HEENT Exam Head: Present: normocephalic ENT: Present: mucous membranes moist - Routine Neck Exam Present: supple - Routine Respiratory Exam Present: CTA bilaterally. Absent: accessory muscle use - Routine Cardiovascular Exam Present: RRR - Routine Abdominal Exam Present: soft, normoactive bowel sounds. Absent: tenderness, distended, guarding, firm - Routine Extremities Exam Comments: No clubbing, cyanosis. Left lower extremity swollen with noted erythema. Skin dry and scaly. Right lower extremity healed amputation area great toe. - Routine Skin Exam Present: dry, warm - Routine Neurological Exam Present: alert Results - Labs CBC & Chem 7: 10/17/18 04:11 10/17/18 04:11 Laboratory Results - last 24 hr 10/16/18 10/16/18 10/16/18 09:52 09:52 09:52 WBC 19.3 H RBC 2.29 L Hgb 6.8 L* Hct 21.5 L MCV 94.1 MCH 29.8 MCHC 31.6 L RDW 14.5 Plt Count 312 MPV 8.5 Prelim Diff (Auto) Slide review pending Neut % (Auto) 92.4 H Lymph % (Auto) 1.3 L Pine % (Auto) 6.2 Eos % (Auto) 0.0 Baso % (Auto) 0.1 Neut # (Auto) 17.8 H Lymph # (Auto) 0.2 L Pine # (Auto) 1.2 H Eos # (Auto) 0.0 Baso # (Auto) 0.0 WBC Differential Manual diff final Seg Neuts % (Manual) 81 H Band Neuts % (Manual) 8 H Lymphocytes % (Manual) 3 L Monocytes % (Manual) 8 Abs Neuts (Manual) 17.2 H Differential Comment . Toxic Granulation 2+ H Platelet Estimate Normal Platelet Morphology Normal Retic Count Absolute Retic Haptoglobin Sodium 137 Potassium 3.4 L Chloride 105 Carbon Dioxide 21.2 Anion Gap 11 BUN 45 H Creatinine 1.59 H Estimated GFR 54 L POC Glucose Random Glucose 130 H Calcium 8.2 L Iron 18 L TIBC 99 L % Saturation 18.1 L Ferritin 1471 H Total Bilirubin 0.8 AST 73 H ALT 32 Alkaline Phosphatase 114 Lactate Dehydrogenase Total Protein 8.0 D Albumin 1.6 L Vitamin B12 1152 H Blood Type Blood Type Recheck Antibody Screen MTS Gel Crossmatch Bld Prod Order Comment 10/16/18 10/16/18 10/16/18 11:59 14:34 14:34 WBC RBC Hgb Hct MCV MCH MCHC RDW Plt Count MPV Prelim Diff (Auto) Neut % (Auto) Lymph % (Auto) Pine % (Auto) Eos % (Auto) Baso % (Auto) Neut # (Auto) Lymph # (Auto) Pine # (Auto) Eos # (Auto) Baso # (Auto) WBC Differential Seg Neuts % (Manual) Band Neuts % (Manual) Lymphocytes % (Manual) Monocytes % (Manual) Abs Neuts (Manual) Differential Comment Toxic Granulation Platelet Estimate Platelet Morphology Retic Count 1.2 Absolute Retic 28.3 Haptoglobin Sodium Potassium Chloride Carbon Dioxide Anion Gap BUN Creatinine Estimated GFR POC Glucose 169 H Random Glucose Calcium Iron TIBC % Saturation Ferritin Total Bilirubin AST ALT Alkaline Phosphatase Lactate Dehydrogenase Total Protein Albumin Vitamin B12 Blood Type B Positive Blood Type Recheck Not needed Antibody Screen Negative MTS Gel Crossmatch See Detail Bld Prod Order Comment 10/16/18 10/16/18 10/16/18 14:34 17:05 21:22 WBC RBC Hgb Hct MCV MCH MCHC RDW Plt Count MPV Prelim Diff (Auto) Neut % (Auto) Lymph % (Auto) Pine % (Auto) Eos % (Auto) Baso % (Auto) Neut # (Auto) Lymph # (Auto) Pine # (Auto) Eos # (Auto) Baso # (Auto) WBC Differential Seg Neuts % (Manual) Band Neuts % (Manual) Lymphocytes % (Manual) Monocytes % (Manual) Abs Neuts (Manual) Differential Comment Toxic Granulation Platelet Estimate Platelet Morphology Retic Count Absolute Retic Haptoglobin 434 H Sodium Potassium Chloride Carbon Dioxide Anion Gap BUN Creatinine Estimated GFR POC Glucose 151 H 135 H Random Glucose Calcium Iron 16 L TIBC 105 L % Saturation 15.2 L Ferritin 1449 H Total Bilirubin AST ALT Alkaline Phosphatase Lactate Dehydrogenase 174 Total Protein Albumin Vitamin B12 Blood Type Blood Type Recheck Antibody Screen MTS Gel Crossmatch Bld Prod Order Comment 10/16/18 10/17/18 10/17/18 23:31 04:11 04:11 WBC 17.9 H RBC 2.70 L Hgb 8.2 L 8.2 L Hct 23.7 L 24.3 L MCV 89.9 D MCH 30.5 MCHC 33.9 RDW 15.5 Plt Count 285 MPV 8.8 Prelim Diff (Auto) Neut % (Auto) 90.6 H Lymph % (Auto) 3.7 L Pine % (Auto) 5.4 Eos % (Auto) 0.1 Baso % (Auto) 0.2 Neut # (Auto) 16.2 H Lymph # (Auto) 0.7 L Pine # (Auto) 1.0 H Eos # (Auto) 0.0 Baso # (Auto) 0.0 WBC Differential . Seg Neuts % (Manual) Band Neuts % (Manual) Lymphocytes % (Manual) Monocytes % (Manual) Abs Neuts (Manual) Differential Comment Auto diff final Toxic Granulation Platelet Estimate Platelet Morphology Retic Count Absolute Retic Haptoglobin Sodium 138 Potassium 3.7 Chloride 106 Carbon Dioxide 20.4 L Anion Gap 12 BUN 27 H Creatinine 1.23 Estimated GFR 72 L POC Glucose Random Glucose 103 Calcium 7.7 L Iron TIBC % Saturation Ferritin Total Bilirubin AST ALT Alkaline Phosphatase Lactate Dehydrogenase Total Protein Albumin Vitamin B12 Blood Type Blood Type Recheck Antibody Screen MTS Gel Crossmatch Bld Prod Order Comment 10/17/18 08:13 WBC RBC Hgb Hct MCV MCH MCHC RDW Plt Count MPV Prelim Diff (Auto) Neut % (Auto) Lymph % (Auto) Pine % (Auto) Eos % (Auto) Baso % (Auto) Neut # (Auto) Lymph # (Auto) Pine # (Auto) Eos # (Auto) Baso # (Auto) WBC Differential Seg Neuts % (Manual) Band Neuts % (Manual) Lymphocytes % (Manual) Monocytes % (Manual) Abs Neuts (Manual) Differential Comment Toxic Granulation Platelet Estimate Platelet Morphology Retic Count Absolute Retic Haptoglobin Sodium Potassium Chloride Carbon Dioxide Anion Gap BUN Creatinine Estimated GFR POC Glucose 139 H Random Glucose Calcium Iron TIBC % Saturation Ferritin Total Bilirubin AST ALT Alkaline Phosphatase Lactate Dehydrogenase Total Protein Albumin Vitamin B12 Blood Type Blood Type Recheck Antibody Screen MTS Gel Crossmatch Bld Prod Order Comment Microbiology 10/16/18 16:00 Wound - Leg Gram Stain - Final 10/14/18 23:25 Blood - Peripheral Aerobic Blood Culture - Preliminary No growth in 2 days 10/14/18 23:25 Blood - Peripheral Anaerobic Blood Culture - Preliminary No growth in 2 days 10/14/18 23:30 Blood - Peripheral Aerobic Blood Culture - Preliminary No growth in 2 days 10/14/18 23:30 Blood - Peripheral Anaerobic Blood Culture - Preliminary No growth in 2 days - Imaging Impressions Abdomen/Pelvis CT 10/16/18 00:00 CONCLUSION: 1. No acute findings within the abdomen. Trace free fluid in the pelvis of unknown etiology. Assessment and Plan - Plan Assessment Anemianormocytic normochromicpatient denies any obvious source of bleeding including hematochezia, melena, hematemesis and coffee-ground emesis. Patient is unsure of previous history of anemia, states that he thinks he has had blood transfusion in the past. He is unsure if he is ever been on iron or B12 supplements. He is unsure of any family history significant for anemia. Patient denies taking any NSAIDs, blood thinners. He denies any alcohol use or nicotine use. Patient denies previous EGD or colonoscopy. Denies any family history significant for colon cancer. Unintentional weight losspatient reports 20 pound weight loss over the past 4- 5 months, he is unsure the etiology. Cellulitisper primary team-patient has been febrile 10/17/2018 Anemia No noted obvious bleeding. No reported hematemesis or blood noted in stools. WBC 17.9 hemoglobin 8.2 hematocrit 24.3 Iron 16 TIBC 105 saturation 15.2 ferritin 1449 10/16/2018 total bilirubin 0.8 AST 73 ALT 32 alk phos 114 Cellulitis Low-grade temperature 99.9. Patient being treated currently for cellulitis lower extremity. 10/16/2018 CT abdomen and pelvis-No acute findings in the liver, spleen, adrenals , kidneys or pancreas. No calcified gallstones. There is a small amount free fluid in the pelvis. No free air. No bowel obstruction. Fat-containing umbilical hernia. Plan Diabetic diet Patient will require EGD and colonoscopy once stable-reports unintentional weight loss of 20 pounds over the last 4 months Hemoccult stool pending Monitor hemoglobin and hematocrit Transfuse as needed Supportive care Further recommendations to follow This patient has been seen and examined by myself and Dr. Vidal and this note is written on his behalf - Attending Attestation Dr. Vidal
[2018-10-17] MEDS: Collagenase Oint 30 GM Tube TOPICAL SCH (12:27)
--- NOTE | 2018-10-17 13:32 | P.PNID ---
Subjective Remarks: Patient is a 62-year-old male, presented to the hospital complaining of swelling and pain in his left lower extremity. He could not really tell me how long it has been there. He denies any trauma, denies any previous episode of cellulitis in the left lower extremity. He denies any fever chills or sweats. But since his been here he had been febrile up to 101+. He denies any sore throat or any respiratory complaint. Denies any nausea or vomiting, GI or any urinary complaints. On presentation his WBC was 23,000. His creatinine was up to 2.06. CT of the left lower extremity did not show any abscess, osteophyte just significant swelling compatible with cellulitis. He is on cefepime and vancomycin Infectious disease consultation has been requested to assist with evaluation and treatment of his cellulitis. Notes reviewed Temps better Patient states leg leaking WBC lower Creatinine better C/S pending Antibiotics: Cubicin Cefepime Clindamycin Past Medical History: Past HX: hypertension, diabetes mellitus, coronary artery disease, CHF (last EF of 40% in 08/01) peripheral arterial disease, hyperlipidemia, depression, GERD and osteoarthritis Past Surgical History: CABG Right first toe amputation Left arm I&D for MRSA Allergies/Adverse Reactions: Allergies No Known Allergies Allergy (Verified 10/14/18 22:12) Objective Vital Signs 10/16/18 15:28 10/16/18 17:56 10/16/18 18:31 Temperature 99.4 F 99.7 F H 99.9 F H Pulse Rate 114 H 101 H 118 H Respiratory Rate 16 16 16 Blood Pressure 128/81 139/77 126/68 Pulse Oximetry 99 99 10/16/18 19:48 10/16/18 20:00 10/17/18 00:00 Temperature 100.1 F H 99.5 F Pulse Rate 112 H 104 H 107 H Respiratory Rate 18 18 Blood Pressure 141/68 H 124/60 Pulse Oximetry 99 10/17/18 04:00 10/17/18 08:00 Temperature 99.2 F Pulse Rate 101 H 103 H Respiratory Rate 16 16 Blood Pressure 120/58 L 152/77 H Pulse Oximetry 98 98 Intake & Output 10/16/18 10/17/18 10/17/18 18:59 06:59 18:59 Intake Total 3149 / 3149 204 / 204 784 / 784 Balance 3149 / 3149 204 / 204 784 / 784 Intake: IV 1808 / 1808 204 / 204 304 / 304 NS Inj 1,000 ML @ 125 mls/hr IV 1500 / 1500 .CONT .Q8H JIMMY Rx#:[id number] Maxipime Inj 1,000 MG In NS Inj 100 / 100 100 / 100 100 ML @ 200 mls/hr IV.SIG Q12H JIMMY Rx#:[id number] Cleocin Inj 600 MG In NS Inj 208 / 208 104 / 104 104 / 104 100 ML @ 200 mls/hr IV.SIG Q8H JIMMY Rx#:[id number] NS Inj 250 ML @ 15 mls/hr IV. 200 / 200 SIG ONCE JIMMY Rx#:[id number] Oral 480 / 480 Other 1341 / 1341 Intake (Blood Product) Amt 0 / 0 Rbc As-3 Leukoreduced Unit 0 / 0 [id number] Other: Other Intake Source Saline Solution # Voids 2 Date of Last Bowel Movement 10/13/18 10/14/18 23:25 Blood - Peripheral Aerobic Blood Culture - Preliminary No growth in 3 days 10/14/18 23:25 Blood - Peripheral Anaerobic Blood Culture - Preliminary No growth in 3 days 10/14/18 23:30 Blood - Peripheral Aerobic Blood Culture - Preliminary No growth in 3 days 10/14/18 23:30 Blood - Peripheral Anaerobic Blood Culture - Preliminary No growth in 3 days 10/16/18 16:00 Wound - Leg Gram Stain - Final 10/16/18 16:00 Wound - Leg Wound Culture - Pending Lab - Hematology Results 10/15/18 10/16/18 10/16/18 16:40 09:52 14:34 WBC 19.3 H RBC 2.29 L Hgb 7.2 L 6.8 L* Hct 22.8 L 21.5 L MCV 94.1 MCH 29.8 MCHC 31.6 L RDW 14.5 Plt Count 312 MPV 8.5 Prelim Diff (Auto) Slide review pending Neut % (Auto) 92.4 H Lymph % (Auto) 1.3 L [place] % (Auto) 6.2 Eos % (Auto) 0.0 Baso % (Auto) 0.1 Neut # (Auto) 17.8 H Lymph # (Auto) 0.2 L [place] # (Auto) 1.2 H Eos # (Auto) 0.0 Baso # (Auto) 0.0 WBC Differential Manual diff final Seg Neuts % (Manual) 81 H Band Neuts % (Manual) 8 H Lymphocytes % (Manual) 3 L Monocytes % (Manual) 8 Abs Neuts (Manual) 17.2 H Differential Comment . Toxic Granulation 2+ H Platelet Estimate Normal Platelet Morphology Normal Retic Count 1.2 Absolute Retic 28.3 Haptoglobin 10/16/18 10/16/18 10/17/18 14:34 23:31 04:11 WBC 17.9 H RBC 2.70 L Hgb 8.2 L 8.2 L Hct 23.7 L 24.3 L MCV 89.9 D MCH 30.5 MCHC 33.9 RDW 15.5 Plt Count 285 MPV 8.8 Prelim Diff (Auto) Neut % (Auto) 90.6 H Lymph % (Auto) 3.7 L [place] % (Auto) 5.4 Eos % (Auto) 0.1 Baso % (Auto) 0.2 Neut # (Auto) 16.2 H Lymph # (Auto) 0.7 L [place] # (Auto) 1.0 H Eos # (Auto) 0.0 Baso # (Auto) 0.0 WBC Differential . Seg Neuts % (Manual) Band Neuts % (Manual) Lymphocytes % (Manual) Monocytes % (Manual) Abs Neuts (Manual) Differential Comment Auto diff final Toxic Granulation Platelet Estimate Platelet Morphology Retic Count Absolute Retic Haptoglobin 434 H Lab - Chemistry Results 10/15/18 10/15/18 10/15/18 14:45 16:40 17:08 Sodium Potassium Chloride Carbon Dioxide Anion Gap BUN Creatinine Estimated GFR POC Glucose 204 H Random Glucose Calcium Iron TIBC % Saturation Ferritin Total Bilirubin AST ALT Alkaline Phosphatase Ammonia 13 Lactate Dehydrogenase Total Creatine Kinase 41 Total Protein Albumin Vitamin B12 10/15/18 10/16/18 10/16/18 22:23 08:02 09:52 Sodium 137 Potassium 3.4 L Chloride 105 Carbon Dioxide 21.2 Anion Gap 11 BUN 45 H Creatinine 1.59 H Estimated GFR 54 L POC Glucose 185 H 180 H Random Glucose 130 H Calcium 8.2 L Iron TIBC % Saturation Ferritin Total Bilirubin 0.8 AST 73 H ALT 32 Alkaline Phosphatase 114 Ammonia Lactate Dehydrogenase Total Creatine Kinase Total Protein 8.0 D Albumin 1.6 L Vitamin B12 10/16/18 10/16/18 10/16/18 09:52 11:59 14:34 Sodium Potassium Chloride Carbon Dioxide Anion Gap BUN Creatinine Estimated GFR POC Glucose 169 H Random Glucose Calcium Iron 18 L 16 L TIBC 99 L 105 L % Saturation 18.1 L 15.2 L Ferritin 1471 H 1449 H Total Bilirubin AST ALT Alkaline Phosphatase Ammonia Lactate Dehydrogenase 174 Total Creatine Kinase Total Protein Albumin Vitamin B12 1152 H 10/16/18 10/16/18 10/17/18 17:05 21:22 04:11 Sodium 138 Potassium 3.7 Chloride 106 Carbon Dioxide 20.4 L Anion Gap 12 BUN 27 H Creatinine 1.23 Estimated GFR 72 L POC Glucose 151 H 135 H Random Glucose 103 Calcium 7.7 L Iron TIBC % Saturation Ferritin Total Bilirubin AST ALT Alkaline Phosphatase Ammonia Lactate Dehydrogenase Total Creatine Kinase Total Protein Albumin Vitamin B12 10/17/18 10/17/18 08:13 12:28 Sodium Potassium Chloride Carbon Dioxide Anion Gap BUN Creatinine Estimated GFR POC Glucose 139 H 224 H Random Glucose Calcium Iron TIBC % Saturation Ferritin Total Bilirubin AST ALT Alkaline Phosphatase Ammonia Lactate Dehydrogenase Total Creatine Kinase Total Protein Albumin Vitamin B12 Imaging: ITS Impressions Lower Extremity CT 10/15/18 00:00 CONCLUSION: 1. Cellulitis without abscess or osteomyelitis. Venous Doppler Study 10/15/18 00:00 CONCLUSION: 1. No sonographic evidence for left lower extremity DVT. Abdomen/Pelvis CT 10/16/18 00:00 CONCLUSION: 1. No acute findings within the abdomen. Trace free fluid in the pelvis of unknown etiology. Physical Exam: GENERAL: awake and alert, not in respiratory distress. SKIN: Warm and dry. No generalized rash, no ecchymoses and no evidence of embolic lesions. HEAD: Atraumatic. Normocephalic. No temporal wasting, or tenderness. EYES: Pale conjunctiva. No petechia or hemorrhage. Pupils equal, round and reactive to light. Extraocular movements full and intact. No scleral icterus. No injection or drainage. EARS, NOSE AND THROAT: Nose without bleeding or purulent nasal discharge. No sinus tenderness. Mucous membranes pink and moist. No oral lesions noted. No exudate. No oral thrush. NECK: Trachea midline. Supple and not tender, no meningeal signs CARDIOVASCULAR: Regular rate and rhythm. No murmurs, rubs or gallops heard RESPIRATORY: Clear to auscultation. Breath sounds equal bilaterally. No rales , wheezing or rhonchi ABDOMEN: Soft, non-tender, nondistended. Bowel sounds present and normoactive. No guarding. No rebound. No organomegaly. EXTREMITIES: No clubbing, cyanosis. LLE with improving edema, redness looks same or less, with some areas of fat necrosis, with some oozing areas, Has dry skin on his L foot. RLE not swollen, well healed amputation of his big toe. No calf tenderness. NEUROLOGICAL: Non-focal. PSYCHIATRIC: Flat affect, calm and cooperative. LINE: No evidence of infection Assessment and Plan - Plan Impression Sepsis due to LLE cellulitis Cellulitis LLE Renal insufficiency, better Known DM Per records PVD Anemia Recommendation Continue cefepime Continue Cubicin Continue Clindamycin Follow wound C/S Elevate leg Wound care consult pending Monitor progress Explained plan to the patient D/W S Issac [place]
--- NOTE | 2018-10-17 16:34 | P.PNIM ---
Subjective Interval history: Follow-up on patient with left lower extremity cellulitis, anemia. Patient seen and examined. States he feels pretty good today. He reports good night sleep. Denies any fever or chills. Denies any dizziness, cough or shortness of breath. Denies any chest pain. He denies any nausea, vomiting or abdominal pain. Physical Exam Vital signs: Last Vital Signs Temp 99.2 F 10/17/18 04:00 Pulse 103 H 10/17/18 08:00 Resp 16 10/17/18 08:00 BP 152/77 H 10/17/18 08:00 Pulse Ox 98 10/17/18 08:00 Intake & Output 10/15/18 10/16/18 10/17/18 10/18/18 06:59 06:59 06:59 06:59 Intake Total 1100 / 1100 3758 / 3758 3353 / 3353 884 / 884 Output Total 975 / 975 Balance 1100 / 1100 2783 / 2783 3353 / 3353 884 / 884 Weight 72.575 kg Narrative: GENERAL: Patient is a well-nourished, well-developed Lynda male patient, INAD. Awake and alert. Appears comfortable sitting up in bed. SKIN: Warm and dry. HEENT: Atraumatic. Normocephalic. PERRLA. EOMI. No scleral icterus. No injection or drainage. No nasal drainage. MMM. Airway patent. NECK: Trachea midline. CARDIOVASCULAR: Tachycardic. No murmur auscultated. RESPIRATORY: Clear to auscultation. Breath sounds equal bilaterally. No rales , wheezing or rhonchi ABDOMEN: Soft, non-tender, nondistended. No guarding. Bowel sounds present and normoactive. EXTREMITIES: No clubbing, cyanosis. LLE markedly swollen, warm, has areas of fat necrosis, with some oozing areas, with surrounding erythema, appears to be improving slowly with slightly less edema and redness. RLE not swollen, well healed amputation of his big toe. No joint effusion, has good ROM. NEUROLOGICAL: Awake and alert. Cranial nerves grossly intact. Able to move all extremities spontaneously. Normal speech. PSYCHIATRIC: Calm and cooperative. Results Labs CBC & Chem 7: 10/17/18 04:11 10/17/18 04:11 Labs: Microbiology 10/16/18 16:00 Wound - Leg Gram Stain - Final 10/16/18 16:00 Wound - Leg Wound Culture - Preliminary No growth in 24 hours 10/14/18 23:25 Blood - Peripheral Aerobic Blood Culture - Preliminary No growth in 3 days 10/14/18 23:25 Blood - Peripheral Anaerobic Blood Culture - Preliminary No growth in 3 days 10/14/18 23:30 Blood - Peripheral Aerobic Blood Culture - Preliminary No growth in 3 days 10/14/18 23:30 Blood - Peripheral Anaerobic Blood Culture - Preliminary No growth in 3 days Imaging Imaging: Impressions Abdomen/Pelvis CT 10/16/18 00:00 CONCLUSION: 1. No acute findings within the abdomen. Trace free fluid in the pelvis of unknown etiology. Assessment and Plan (1) Adjustment disorder with mixed anxiety and depressed mood: Code(s): F43.23 - Adjustment disorder with mixed anxiety and depressed mood Status: Acute Plan 62-year-old male with a PMH of DM who was brought to the ER by EMS for left leg pain and swelling x4 days. Sepsis with fever 101.3, tachycardia with HR 117 and WBC 23 secondary to cellulitis LLE, resolving Bandemia White count continues to trend down currently afebrile Blood cx with no growth x 3 days -continue IV antibiotics per ID -continue to monitor clinically -follow blood cx until finalized -monitor white count Cellulitis LLE doppler neg for DVT CT neg for bony involvement -ID following, appreciate assistance. Continue on daptomycin, cefepime and clindamycin. -wound cx with no growth -wound care nurse consulted/pending -monitor Acute anemia, uncertain etiology B12 1152, folate pending iron 16, %sat 15.2 Hgb dropped to 6.8 post transfusion 1 unit PRBCs Hemoglobin improved to 8.2 -GI following, appreciate assistance. Patient will require EGD and colonoscopy once stable. -stool hemoccult ordered/pending -Start on p.o. iron supplementation -Continue to monitor H&H. Monitor for evidence of overt bleeding. ABDIEL on CKD stage III, improved -creatinine 2.06, baseline around 1.5. 1/ Cr 1.23. -UA neg -avoid nephrotoxic agents -monitor kidney function as indicated DM Blood sugars overall acceptable off of metformin -continue to hold Metformin -Accuchek and ISS Tachycardia, suspect secondary to active infection, anemia -Obtain EKG Depression secondary to recent loss of father self care neglect Weight loss CT the abdomen pelvis shows no acute findings -Evaluated by psychiatry, appreciate assistance. The mild to moderate situational anxiety. Recommending clonazepam 0.5 mg as needed for anxiety every 8 hours. Hypokalemia K 3.4 -Resolved status post p.o. repletion Cannabis abuse UDS + cannabis -discussed cessation DVT prophylaxis -Heparin resumed Progress Note: Quality VTE Deep Vein Thrombosis/Pulmonary Embolism Present on Admission: No
[2018-10-17] MEDS ORDERED: clonazePAM 0.5 MG Tablet PO PRN (16:50)
[2018-10-17] MEDS: DAPTOmycin Inj 500 MG in Sodium Chlor 0.9% Inj 100 ML IV.SIG SCH (17:05)
[2018-10-17] MEDS: Heparin - SQ 10,000 UNITS/ML Vial SQ SCH (21:05)
[2018-10-18] MEDS: Senna/Docusate Sodium 8.6/50 MG Tablet PO SCH ×2 (09:06→21:32)
[2018-10-18] MEDS: Heparin - SQ 10,000 UNITS/ML Vial SQ SCH ×2 (09:06→21:34)
[2018-10-18] MEDS: Ferrous Sulfate 325 MG Tablet PO SCH (09:06)
[2018-10-18] MEDS: Collagenase Oint 30 GM Tube TOPICAL SCH (09:07)
[2018-10-18] MEDS: Insulin NovoLOG Aspart Correctional Sugar Inj SQ SCH ×4 (09:10→22:49)
[2018-10-18] MEDS ORDERED: Pharmacy Ordered Lab Info OTHER ONE (09:45)
[2018-10-18 09:54] LABS: Baso # (Auto) 0.1 th/mm3 (0.0-0.2); Baso % (Auto) 0.4 % (0.0-2.0); Eos % (Auto) 0.1 % (0.0-4.0); Hematocrit 26.3 % (39.0-51.0); Hemoglobin 8.9 gm/dL (13.0-17.0); Lymph # (Auto) 0.6 th/mm3 (1.0-4.8); Lymph % (Auto) 2.8 % (9.0-44.0); Mean Corpuscular HGB Conc 33.8 % (32.0-36.0); Mean Corpuscular Hemoglobin 30.6 pg (27.0-34.0); Mean Corpuscular Volume 90.4 fL (80.0-100.0); Mean Platelet Volume 8.7 fL (7.0-11.0); Mono # (Auto) 0.9 th/mm3 (0.0-0.9); Neut # (Auto) 19.8 th/mm3 (1.8-7.7); Neut % (Auto) 92.7 % (16.0-70.0); Platelet Count 341 th/mm3 (150-450); Red Blood Count 2.91 mil/mm3 (4.50-5.90); Red Cell Distribution Width 15.3 % (11.6-17.2); White Blood Count 21.4 th/mm3 (4.0-11.0)
--- NOTE | 2018-10-18 10:29 | P.PNGI ---
Subjective Interval history: Patient is resting in bed. Denies any nausea, vomiting, abdominal pain. He is eating breakfast. Has not had a bowel movement since admission. <Kathy Borden - Last Filed: 10/18/18 10:25> Physical Exam Vital signs: Vital Signs 10/17/18 16:00 10/17/18 18:30 10/17/18 20:00 Temperature 99.2 F Pulse Rate 110 H 101 H 105 H Respiratory Rate 16 16 Blood Pressure 129/67 119/61 Pulse Oximetry 98 100 10/18/18 00:00 10/18/18 04:00 10/18/18 07:59 Temperature 99.2 F 99.1 F 97.9 F Pulse Rate 99 H 96 H 92 H Respiratory Rate 18 16 18 Blood Pressure 128/66 136/77 132/66 Pulse Oximetry 98 99 97 Intake & Output 10/17/18 10/18/18 10/18/18 18:59 06:59 18:59 Intake Total 1098 / 1098 204 / 204 240 / 240 Output Total 900 / 900 Balance 1098 / 1098 -696 / -696 240 / 240 Weight 72.575 kg Intake: IV 618 / 618 204 / 204 Maxipime Inj 1,000 MG In NS Inj 100 / 100 100 / 100 100 ML @ 200 mls/hr IV.SIG Q12H JIMMY Rx#:[id number] Cleocin Inj 600 MG In NS Inj 208 / 208 104 / 104 100 ML @ 200 mls/hr IV.SIG Q8H JIMMY Rx#:[id number] Cubicin Inj 500 MG In NS Inj 110 / 110 100 ML @ 200 mls/hr IV.SIG Q48H JIMMY Rx#:[id number] NS Inj 250 ML @ 15 mls/hr IV. 200 / 200 SIG ONCE JIMMY Rx#:[id number] Oral 480 / 480 240 / 240 Output: Urine 900 / 900 Other: # Voids 2 Date of Last Bowel Movement 10/13/18 - Constitutional no acute distress - Routine HEENT Exam Head: Present: normocephalic, atraumatic - Routine Respiratory Exam Absent: accessory muscle use - Routine Abdominal Exam Present: soft, normoactive bowel sounds. Absent: tenderness, distended - Routine Skin Exam Present: warm - Routine Neurological Exam Present: alert, oriented X3 <Kathy Borden - Last Filed: 10/18/18 10:25> Vital signs: Vital Signs 10/17/18 16:00 10/17/18 18:30 10/17/18 20:00 Temperature 99.2 F Pulse Rate 110 H 101 H 105 H Respiratory Rate 16 16 Blood Pressure 129/67 119/61 Pulse Oximetry 98 100 10/18/18 00:00 10/18/18 04:00 10/18/18 07:59 Temperature 99.2 F 99.1 F 97.9 F Pulse Rate 99 H 96 H 92 H Respiratory Rate 18 16 18 Blood Pressure 128/66 136/77 132/66 Pulse Oximetry 98 99 97 10/18/18 11:48 Temperature 98.6 F Pulse Rate 102 H Respiratory Rate 18 Blood Pressure 146/74 H Pulse Oximetry 100 Intake & Output 10/17/18 10/18/18 10/18/18 18:59 06:59 18:59 Intake Total 1098 / 1098 204 / 204 920 / 920 Output Total 900 / 900 Balance 1098 / 1098 -696 / -696 920 / 920 Weight 72.575 kg Intake: IV 618 / 618 204 / 204 204 / 204 Maxipime Inj 1,000 MG In NS Inj 100 / 100 100 / 100 100 / 100 100 ML @ 200 mls/hr IV.SIG Q12H JIMMY Rx#:[id number] Cleocin Inj 600 MG In NS Inj 208 / 208 104 / 104 104 / 104 100 ML @ 200 mls/hr IV.SIG Q8H JIMMY Rx#:[id number] Cubicin Inj 500 MG In NS Inj 110 / 110 100 ML @ 200 mls/hr IV.SIG Q48H JIMMY Rx#:[id number] NS Inj 250 ML @ 15 mls/hr IV. 200 / 200 SIG ONCE JIMMY Rx#:[id number] Oral 480 / 480 716 / 716 Output: Urine 900 / 900 Other: # Voids 2 Date of Last Bowel Movement 10/13/18 <Kristian Echeverria - Last Filed: 10/18/18 15:36> Results - Labs CBC & Chem 7: 10/18/18 09:03 10/17/18 04:11 Laboratory Results - last 24 hr 10/17/18 10/17/18 10/17/18 12:28 17:05 21:16 WBC RBC Hgb Hct MCV MCH MCHC RDW Plt Count MPV Neut % (Auto) Lymph % (Auto) [place] % (Auto) Eos % (Auto) Baso % (Auto) Neut # (Auto) Lymph # (Auto) [place] # (Auto) Eos # (Auto) Baso # (Auto) WBC Differential Differential Comment POC Glucose 224 H 240 H 164 H 10/18/18 10/18/18 08:50 09:03 WBC 21.4 H RBC 2.91 L Hgb 8.9 L Hct 26.3 L MCV 90.4 MCH 30.6 MCHC 33.8 RDW 15.3 Plt Count 341 MPV 8.7 Neut % (Auto) 92.7 H Lymph % (Auto) 2.8 L [place] % (Auto) 4.0 Eos % (Auto) 0.1 Baso % (Auto) 0.4 Neut # (Auto) 19.8 H Lymph # (Auto) 0.6 L [place] # (Auto) 0.9 Eos # (Auto) 0.0 Baso # (Auto) 0.1 WBC Differential . Differential Comment Auto diff final POC Glucose 138 H Microbiology 10/16/18 16:00 Wound - Leg Gram Stain - Final 10/16/18 16:00 Wound - Leg Wound Culture - Preliminary No growth in 24 hours 10/14/18 23:25 Blood - Peripheral Aerobic Blood Culture - Preliminary No growth in 3 days 10/14/18 23:25 Blood - Peripheral Anaerobic Blood Culture - Preliminary No growth in 3 days 10/14/18 23:30 Blood - Peripheral Aerobic Blood Culture - Preliminary No growth in 3 days 10/14/18 23:30 Blood - Peripheral Anaerobic Blood Culture - Preliminary No growth in 3 days <Kathy Borden - Last Filed: 10/18/18 10:25> - Labs CBC & Chem 7: 10/18/18 09:03 10/17/18 04:11 Laboratory Results - last 24 hr 10/17/18 10/17/18 10/18/18 17:05 21:16 08:50 WBC RBC Hgb Hct MCV MCH MCHC RDW Plt Count MPV Neut % (Auto) Lymph % (Auto) [place] % (Auto) Eos % (Auto) Baso % (Auto) Neut # (Auto) Lymph # (Auto) [place] # (Auto) Eos # (Auto) Baso # (Auto) WBC Differential Differential Comment POC Glucose 240 H 164 H 138 H 10/18/18 10/18/18 09:03 12:57 WBC 21.4 H RBC 2.91 L Hgb 8.9 L Hct 26.3 L MCV 90.4 MCH 30.6 MCHC 33.8 RDW 15.3 Plt Count 341 MPV 8.7 Neut % (Auto) 92.7 H Lymph % (Auto) 2.8 L [place] % (Auto) 4.0 Eos % (Auto) 0.1 Baso % (Auto) 0.4 Neut # (Auto) 19.8 H Lymph # (Auto) 0.6 L [place] # (Auto) 0.9 Eos # (Auto) 0.0 Baso # (Auto) 0.1 WBC Differential . Differential Comment Auto diff final POC Glucose 186 H Microbiology 10/14/18 23:25 Blood - Peripheral Aerobic Blood Culture - Preliminary No growth in 4 days 10/14/18 23:25 Blood - Peripheral Anaerobic Blood Culture - Preliminary No growth in 4 days 10/14/18 23:30 Blood - Peripheral Aerobic Blood Culture - Preliminary No growth in 4 days 10/14/18 23:30 Blood - Peripheral Anaerobic Blood Culture - Preliminary No growth in 4 days 10/16/18 16:00 Wound - Leg Gram Stain - Final 10/16/18 16:00 Wound - Leg Wound Culture - Preliminary No growth in 48 hours <Kristian Echeverria - Last Filed: 10/18/18 15:36> Assessment and Plan - Plan Assessment Anemianormocytic normochromicpatient denies any obvious source of bleeding including hematochezia, melena, hematemesis and coffee-ground emesis. Patient is unsure of previous history of anemia, states that he thinks he has had blood transfusion in the past. He is unsure if he is ever been on iron or B12 supplements. He is unsure of any family history significant for anemia. Patient denies taking any NSAIDs, blood thinners. He denies any alcohol use or nicotine use. Patient denies previous EGD or colonoscopy. Denies any family history significant for colon cancer. Unintentional weight losspatient reports 20 pound weight loss over the past 4- 5 months, he is unsure the etiology. CT abdomen/pelvis WO IV contrast (10/16/18) no acute findings within the abdomen. Trace free fluid in the pelvis of unknown etiology. Cellulitisper primary team-patient has been febrile (10/18/18) Pt stable overnight. Will schedule for EGD and colonoscopy tomorrow. Plan EGD and colonoscopy tomorrow Obtain consent Clear liquid diet today GoLYTELY prep N.p.o. after midnight Monitor H/H Further recommendations to follow This patient has been seen and examined by myself and Dr. Vidal and this note is written on his behalf <Kathy Borden - Last Filed: 10/18/18 10:25> - Attending Attestation As above, consent obtained. Further recommendations to follow. <Kristian Echeverria - Last Filed: 10/18/18 15:36>
--- NOTE | 2018-10-18 12:19 | ECG ---
Date Performed: 10/17/2018 Time Performed: 18:33:54 PTAGE: 62 years EKG: SINUS TACHYCARDIA NONSPECIFIC T-WAVE ABNORMALITY ABNORMAL RHYTHM ECG Since the PREVIOUS TRACING , no significant change noted PREVIOUS TRACIN03/01/2018 18.54 DOCTOR: Dian Terrazas Interpretating Date/Time 10/18/2018 12:16:11
--- NOTE | 2018-10-18 15:21 | P.PNID ---
Subjective Remarks: Patient is a 62-year-old male, presented to the hospital complaining of swelling and pain in his left lower extremity. He could not really tell me how long it has been there. He denies any trauma, denies any previous episode of cellulitis in the left lower extremity. He denies any fever chills or sweats. But since his been here he had been febrile up to 101+. He denies any sore throat or any respiratory complaint. Denies any nausea or vomiting, GI or any urinary complaints. On presentation his WBC was 23,000. His creatinine was up to 2.06. CT of the left lower extremity did not show any abscess, osteophyte just significant swelling compatible with cellulitis. He is on cefepime and vancomycin Infectious disease consultation has been requested to assist with evaluation and treatment of his cellulitis. Notes reviewed Temps normal Leg feels better WBC higher again Creatinine better C/S negative Antibiotics: Cubicin Cefepime Clindamycin Past Medical History: Past HX: hypertension, diabetes mellitus, coronary artery disease, CHF (last EF of 40% in 08/01) peripheral arterial disease, hyperlipidemia, depression, GERD and osteoarthritis Past Surgical History: CABG Right first toe amputation Left arm I&D for MRSA Allergies/Adverse Reactions: Allergies No Known Allergies Allergy (Verified 10/14/18 22:12) Objective Vital Signs 10/17/18 16:00 10/17/18 18:30 10/17/18 20:00 Temperature 99.2 F Pulse Rate 110 H 101 H 105 H Respiratory Rate 16 16 Blood Pressure 129/67 119/61 Pulse Oximetry 98 100 10/18/18 00:00 10/18/18 04:00 10/18/18 07:59 Temperature 99.2 F 99.1 F 97.9 F Pulse Rate 99 H 96 H 92 H Respiratory Rate 18 16 18 Blood Pressure 128/66 136/77 132/66 Pulse Oximetry 98 99 97 10/18/18 11:48 Temperature 98.6 F Pulse Rate 102 H Respiratory Rate 18 Blood Pressure 146/74 H Pulse Oximetry 100 Intake & Output 10/17/18 10/18/18 10/18/18 18:59 06:59 18:59 Intake Total 1098 / 1098 204 / 204 920 / 920 Output Total 900 / 900 Balance 1098 / 1098 -696 / -696 920 / 920 Weight 72.575 kg Intake: IV 618 / 618 204 / 204 204 / 204 Maxipime Inj 1,000 MG In NS Inj 100 / 100 100 / 100 100 / 100 100 ML @ 200 mls/hr IV.SIG Q12H JIMMY Rx#:[id number] Cleocin Inj 600 MG In NS Inj 208 / 208 104 / 104 104 / 104 100 ML @ 200 mls/hr IV.SIG Q8H JIMMY Rx#:[id number] Cubicin Inj 500 MG In NS Inj 110 / 110 100 ML @ 200 mls/hr IV.SIG Q48H JIMMY Rx#:[id number] NS Inj 250 ML @ 15 mls/hr IV. 200 / 200 SIG ONCE JIMMY Rx#:[id number] Oral 480 / 480 716 / 716 Output: Urine 900 / 900 Other: # Voids 2 Date of Last Bowel Movement 10/13/18 10/14/18 23:25 Blood - Peripheral Aerobic Blood Culture - Preliminary No growth in 4 days 10/14/18 23:25 Blood - Peripheral Anaerobic Blood Culture - Preliminary No growth in 4 days 10/14/18 23:30 Blood - Peripheral Aerobic Blood Culture - Preliminary No growth in 4 days 10/14/18 23:30 Blood - Peripheral Anaerobic Blood Culture - Preliminary No growth in 4 days 10/16/18 16:00 Wound - Leg Gram Stain - Final 10/16/18 16:00 Wound - Leg Wound Culture - Preliminary No growth in 48 hours Lab - Hematology Results 10/16/18 10/16/18 10/16/18 14:34 14:34 23:31 WBC RBC Hgb 8.2 L Hct 23.7 L MCV MCH MCHC RDW Plt Count MPV Neut % (Auto) Lymph % (Auto) Mcclain % (Auto) Eos % (Auto) Baso % (Auto) Neut # (Auto) Lymph # (Auto) Mcclain # (Auto) Eos # (Auto) Baso # (Auto) WBC Differential Differential Comment Retic Count 1.2 Absolute Retic 28.3 Haptoglobin 434 H 10/17/18 10/18/18 04:11 09:03 WBC 17.9 H 21.4 H RBC 2.70 L 2.91 L Hgb 8.2 L 8.9 L Hct 24.3 L 26.3 L MCV 89.9 D 90.4 MCH 30.5 30.6 MCHC 33.9 33.8 RDW 15.5 15.3 Plt Count 285 341 MPV 8.8 8.7 Neut % (Auto) 90.6 H 92.7 H Lymph % (Auto) 3.7 L 2.8 L Mcclain % (Auto) 5.4 4.0 Eos % (Auto) 0.1 0.1 Baso % (Auto) 0.2 0.4 Neut # (Auto) 16.2 H 19.8 H Lymph # (Auto) 0.7 L 0.6 L Mcclain # (Auto) 1.0 H 0.9 Eos # (Auto) 0.0 0.0 Baso # (Auto) 0.0 0.1 WBC Differential . . Differential Comment Auto diff final Auto diff final Retic Count Absolute Retic Haptoglobin Lab - Chemistry Results 10/16/18 10/16/18 10/16/18 14:34 17:05 21:22 Sodium Potassium Chloride Carbon Dioxide Anion Gap BUN Creatinine Estimated GFR POC Glucose 151 H 135 H Random Glucose Calcium Iron 16 L TIBC 105 L % Saturation 15.2 L Ferritin 1449 H Lactate Dehydrogenase 174 10/17/18 10/17/18 10/17/18 04:11 08:13 12:28 Sodium 138 Potassium 3.7 Chloride 106 Carbon Dioxide 20.4 L Anion Gap 12 BUN 27 H Creatinine 1.23 Estimated GFR 72 L POC Glucose 139 H 224 H Random Glucose 103 Calcium 7.7 L Iron TIBC % Saturation Ferritin Lactate Dehydrogenase 10/17/18 10/17/18 10/18/18 17:05 21:16 08:50 Sodium Potassium Chloride Carbon Dioxide Anion Gap BUN Creatinine Estimated GFR POC Glucose 240 H 164 H 138 H Random Glucose Calcium Iron TIBC % Saturation Ferritin Lactate Dehydrogenase 10/18/18 12:57 Sodium Potassium Chloride Carbon Dioxide Anion Gap BUN Creatinine Estimated GFR POC Glucose 186 H Random Glucose Calcium Iron TIBC % Saturation Ferritin Lactate Dehydrogenase Imaging: ITS Impressions Lower Extremity CT 10/15/18 00:00 CONCLUSION: 1. Cellulitis without abscess or osteomyelitis. Venous Doppler Study 10/15/18 00:00 CONCLUSION: 1. No sonographic evidence for left lower extremity DVT. Abdomen/Pelvis CT 10/16/18 00:00 CONCLUSION: 1. No acute findings within the abdomen. Trace free fluid in the pelvis of unknown etiology. Physical Exam: GENERAL: awake and alert, not in respiratory distress. SKIN: Warm and dry. No generalized rash, HEAD: Atraumatic. Normocephalic. No temporal wasting, or tenderness. EYES: Pale conjunctiva. No petechia or hemorrhage. No scleral icterus. No injection or drainage. EARS, NOSE AND THROAT: Mucous membranes pink and moist. No oral lesions noted. No exudate. No oral thrush. NECK: Trachea midline. Supple and not tender, no meningeal signs CARDIOVASCULAR: Regular rate and rhythm. No murmurs, rubs or gallops heard RESPIRATORY: Clear to auscultation. Breath sounds equal bilaterally. No rales , wheezing or rhonchi ABDOMEN: Soft, non-tender, nondistended. Bowel sounds present and normoactive. No guarding. No rebound. No organomegaly. EXTREMITIES: No clubbing, cyanosis. LLE with improving edema, improving redness. Intact dressing. No calf tenderness. NEUROLOGICAL: Non-focal. PSYCHIATRIC: calm and cooperative. LINE: No evidence of infection Assessment and Plan - Plan Impression Sepsis due to LLE cellulitis Cellulitis LLE Open wounds LLE Leukocytosis, up again Renal insufficiency, better Known DM Per records PVD Anemia Recommendation Continue cefepime Stop Cubicin Continue Clindamycin Follow wound C/S Elevate leg Wound care Follow CBC GI workup Monitor progress Explained plan to the patient
[2018-10-18] MEDS ORDERED: PEG 3350/E-Lyte Soln 4000 ML Bottle PO ONE (16:00)
[2018-10-18 16:31] LABS: Baso # (Auto) 0.1 th/mm3 (0.0-0.2); Baso % (Auto) 0.4 % (0.0-2.0); Eos % (Auto) 0.1 % (0.0-4.0); Hematocrit 26.8 % (39.0-51.0); Lymph # (Auto) 0.8 th/mm3 (1.0-4.8); Lymph % (Auto) 3.8 % (9.0-44.0); Mean Corpuscular HGB Conc 33.6 % (32.0-36.0); Mean Corpuscular Hemoglobin 30.5 pg (27.0-34.0); Mean Corpuscular Volume 90.8 fL (80.0-100.0); Mean Platelet Volume 8.3 fL (7.0-11.0); Mono # (Auto) 0.7 th/mm3 (0.0-0.9); Mono % (Auto) 3.7 % (0.0-8.0); Neut # (Auto) 18.5 th/mm3 (1.8-7.7); Platelet Count 333 th/mm3 (150-450); Red Blood Count 2.95 mil/mm3 (4.50-5.90); Red Cell Distribution Width 15.7 % (11.6-17.2); White Blood Count 20.1 th/mm3 (4.0-11.0)
--- NOTE | 2018-10-18 17:10 | P.PNIM ---
Subjective Interval history: Upon patient with left lower extremity cellulitis. Patient seen and examined. Patient says he is doing all right. He denies any new medical complaints or concerns. He denies any fever or chills. Denies any chest pain or shortness of breath. Denies any nausea vomiting or abdominal pain. Patient has not had a bowel movement since admission however he is to begin bowel prep today. Physical Exam Vital signs: Last Vital Signs Temp 99.6 F 10/18/18 15:56 Pulse 105 H 10/18/18 15:56 Resp 18 10/18/18 15:56 BP 132/63 10/18/18 15:56 Pulse Ox 99 10/18/18 15:56 Intake & Output 10/16/18 10/17/18 10/18/18 10/19/18 06:59 06:59 06:59 06:59 Intake Total 3758 / 3758 3353 / 3353 1302 / 1302 920 / 920 Output Total 975 / 975 900 / 900 Balance 2783 / 2783 3353 / 3353 402 / 402 920 / 920 Weight 72.575 kg Narrative: GENERAL: Patient is a well-nourished, well-developed Lynda male patient, INAD. Awake and alert. Appears comfortable sitting up in bed. SKIN: Warm and dry. HEENT: Atraumatic. Normocephalic. PERRLA. EOMI. No scleral icterus. No injection or drainage. No nasal drainage. MMM. Airway patent. NECK: Trachea midline. CARDIOVASCULAR: Tachycardia. No murmur auscultated. RESPIRATORY: Clear to auscultation. Breath sounds equal bilaterally. No rales , wheezing or rhonchi. ABDOMEN: Soft, non-tender, nondistended. No guarding. Bowel sounds present and normoactive. EXTREMITIES: No clubbing, cyanosis. LLE markedly swollen, warm, has areas of fat necrosis, with some oozing areas, with surrounding erythema, improving slowly. Noted to be less edematous today. RLE not swollen, well healed amputation of his big toe. NEUROLOGICAL: Awake and alert. Cranial nerves grossly intact. Able to move all extremities spontaneously. Normal speech. PSYCHIATRIC: Calm and cooperative. Results Labs CBC & Chem 7: 10/18/18 16:16 10/17/18 04:11 Labs: Microbiology 10/14/18 23:25 Blood - Peripheral Aerobic Blood Culture - Preliminary No growth in 4 days 10/14/18 23:25 Blood - Peripheral Anaerobic Blood Culture - Preliminary No growth in 4 days 10/14/18 23:30 Blood - Peripheral Aerobic Blood Culture - Preliminary No growth in 4 days 10/14/18 23:30 Blood - Peripheral Anaerobic Blood Culture - Preliminary No growth in 4 days 10/16/18 16:00 Wound - Leg Gram Stain - Final 10/16/18 16:00 Wound - Leg Wound Culture - Preliminary No growth in 48 hours Assessment and Plan (1) Adjustment disorder with mixed anxiety and depressed mood: Code(s): F43.23 - Adjustment disorder with mixed anxiety and depressed mood Status: Acute Plan 62-year-old male with a PMH of DM who was brought to the ER by EMS for left leg pain and swelling x4 days. Sepsis with fever 101.3, tachycardia with HR 117 and WBC 23 secondary to cellulitis LLE, resolved White count trending back up Afebrile x 48hrs Blood cx with no growth x 4 days -continue IV antibiotics per ID -continue to monitor clinically -follow blood cx until finalized -continue to monitor white count Cellulitis LLE doppler neg for DVT CT neg for bony involvement -ID following, appreciate assistance. Started on cefepime, clindamycin and daptomycin. 1/3 daptomycin discontinued by ID. -wound cx with no growth -wound care nurse consulted/pending -monitor Acute anemia Hgb dropped to 6.8 status post transfusion 1 unit PRBCs B12 1152, folate pending iron 16, %sat 15.2 Hemoglobin now stable -GI following, appreciate assistance. EGD and colonoscopy planned for tomorrow. N.p.o. after midnight. -Continue on p.o. iron supplementation -stool hemoccult ordered but no BM since admission -repeat H/H as indicated. ABDIEL on CKD stage III -creatinine 2.06, baseline around 1.5. Cr trending down. -UA neg -avoid nephrotoxic agents -monitor kidney function as indicated DM Blood sugars overall acceptable off of metformin -continue to hold Metformin -Accuchek and ISS Depression secondary to recent loss of father self care neglect Weight loss CT the abdomen pelvis shows no acute findings -Evaluated by psychiatry, appreciate assistance. The mild to moderate situational anxiety. Recommending clonazepam 0.5 mg as needed for anxiety every 8 hours. Cannabis abuse UDS + cannabis -discussed cessation DVT prophylaxis -Heparin Progress Note: Quality VTE Deep Vein Thrombosis/Pulmonary Embolism Present on Admission: No
[2018-10-19 04:37] LABS: Baso # (Auto) 0.1 th/mm3 (0.0-0.2); Baso % (Auto) 0.5 % (0.0-2.0); Eos % (Auto) 0.2 % (0.0-4.0); Hematocrit 24.9 % (39.0-51.0); Hemoglobin 8.4 gm/dL (13.0-17.0); Lymph # (Auto) 0.9 th/mm3 (1.0-4.8); Lymph % (Auto) 5.7 % (9.0-44.0); Mean Corpuscular HGB Conc 33.7 % (32.0-36.0); Mean Corpuscular Hemoglobin 30.2 pg (27.0-34.0); Mean Corpuscular Volume 89.7 fL (80.0-100.0); Mean Platelet Volume 8.1 fL (7.0-11.0); Mono # (Auto) 0.6 th/mm3 (0.0-0.9); Mono % (Auto) 4.1 % (0.0-8.0); Neut # (Auto) 14.1 th/mm3 (1.8-7.7); Neut % (Auto) 89.5 % (16.0-70.0); Platelet Count 307 th/mm3 (150-450); Red Blood Count 2.78 mil/mm3 (4.50-5.90); Red Cell Distribution Width 15.2 % (11.6-17.2); White Blood Count 15.7 th/mm3 (4.0-11.0)
--- NOTE | 2018-10-19 07:49 | P.PNIM ---
Subjective Interval history: Patient seen and examined. Patient NPO for colonoscopy. Patient says he is okay. He does not verbalize any new medical complaints or concerns. His sister is at the bedside. Physical Exam Vital signs: Last Vital Signs Temp 99.3 F 10/19/18 03:26 Pulse 100 H 10/19/18 03:26 Resp 20 10/19/18 03:26 BP 139/65 10/19/18 03:26 Pulse Ox 99 10/19/18 03:26 Intake & Output 10/17/18 10/18/18 10/19/18 10/20/18 06:59 06:59 06:59 06:59 Intake Total 3353 / 3353 1302 / 1302 1228 / 1228 Output Total 900 / 900 Balance 3353 / 3353 402 / 402 1228 / 1228 Weight 72.575 kg Narrative: GENERAL: Patient is a well-nourished, well-developed Lynda male patient, INAD. Awake and alert. Sister is at the bedside. SKIN: Warm and dry. HEENT: Atraumatic. Normocephalic. PERRLA. EOMI. No scleral icterus. No injection or drainage. No nasal drainage. MMM. Airway patent. NECK: Trachea midline. CARDIOVASCULAR: Tachycardic. No murmur auscultated. RESPIRATORY: Clear to auscultation. Breath sounds equal bilaterally. No rales , wheezing or rhonchi. ABDOMEN: Soft, non-tender, nondistended. No guarding. Bowel sounds present and normoactive. EXTREMITIES: No clubbing, cyanosis. LLE markedly swollen, warm, has areas of fat necrosis, with some oozing areas, with surrounding erythema, improving slowly. Noted to be less edematous and erythematous. NEUROLOGICAL: Awake and alert. Cranial nerves grossly intact. Able to move all extremities spontaneously. Normal speech. PSYCHIATRIC: Calm and cooperative. Results Labs CBC & Chem 7: 10/19/18 03:51 10/17/18 04:11 Labs: Microbiology 10/14/18 23:25 Blood - Peripheral Aerobic Blood Culture - Preliminary No growth in 4 days 10/14/18 23:25 Blood - Peripheral Anaerobic Blood Culture - Preliminary No growth in 4 days 10/14/18 23:30 Blood - Peripheral Aerobic Blood Culture - Preliminary No growth in 4 days 10/14/18 23:30 Blood - Peripheral Anaerobic Blood Culture - Preliminary No growth in 4 days 10/16/18 16:00 Wound - Leg Gram Stain - Final 10/16/18 16:00 Wound - Leg Wound Culture - Preliminary No growth in 48 hours Assessment and Plan (1) Adjustment disorder with mixed anxiety and depressed mood: Code(s): F43.23 - Adjustment disorder with mixed anxiety and depressed mood Status: Acute Plan 62-year-old male with a PMH of DM who was brought to the ER by EMS for left leg pain and swelling x4 days. Sepsis with fever 101.3, tachycardia with HR 117 and WBC 23 secondary to cellulitis LLE, resolving White count now trending down Afebrile x 48hrs Blood cx with no growth x 5 days -continue IV antibiotics per ID -continue to monitor clinically -continue to monitor white count - 23.4 -> 17.9 -> 21.4 -> 15.7 Cellulitis LLE doppler neg for DVT CT neg for bony involvement -ID following, appreciate assistance. Started on cefepime, clindamycin and daptomycin. 1/3 daptomycin discontinued by ID. -wound cx with no growth -wound care nurse following, appreciate recommendations. Open area identified with tunneling, cultured. Recommended Podiatry consult which was placed. -monitor Acute anemia Hgb dropped to 6.8 status post transfusion 1 unit PRBCs B12 1152, folate pending iron 16, %sat 15.2 Hemoglobin appears stable -GI following, appreciate assistance. For EGD and colonoscopy today. Keep NPO. -Continue on p.o. iron supplementation -repeat H/H as indicated. ABDIEL on CKD stage III -creatinine 2.06, baseline around 1.5. Cr trending down. -UA neg -avoid nephrotoxic agents -monitor kidney function as indicated DM Blood sugars overall acceptable off of metformin -continue to hold Metformin -Accuchek and ISS Depression secondary to recent loss of father self care neglect Weight loss CT the abdomen pelvis shows no acute findings -Evaluated by psychiatry, appreciate assistance. The mild to moderate situational anxiety. Recommending clonazepam 0.5 mg as needed for anxiety every 8 hours. Cannabis abuse UDS + cannabis -discussed cessation DVT prophylaxis -Heparin Progress Note: Quality VTE Deep Vein Thrombosis/Pulmonary Embolism Present on Admission: No
[2018-10-19] MEDS: Insulin NovoLOG Aspart Correctional Sugar Inj SQ SCH ×3 (08:00→19:20)
[2018-10-19] MEDS ORDERED: Chlorhexidine Gluconate 2% 1 Pack (2 Cloths) TOPICAL ONE (11:17)
[2018-10-19] MEDS ORDERED: Metoprolol Tartrate 25 MG Tablet PO SCH (11:17)
[2018-10-19] MEDS ORDERED: Sodium Chlor 0.9% Inj 500 ML IV.SIG SCH (12:00)
--- NOTE | 2018-10-19 12:02 | GIPROC ---
[facility] [address] [facility]. [facility], [address] EGD PROCEDURE REPORT EXAM DATE: 10/19/2018 PATIENT NAME: Matt Ely MR #: [id number] BIRTHDATE: 1955 ATTENDING: Kristian Echeverria MD ORDER #: [id number] MARKETING INTELLIGENCE MANAGER: Cindy Fontenot and Petra Chaney STATUS: inpatient INDICATIONS: The patient is a 62 yr old male here for an EGD due to anemia PROCEDURE PERFORMED: EGD, diagnostic MEDICATIONS: Per Anesthesia and None. TOPICAL ANESTHETIC: none CONSENT: The patient understands the risks and benefits of the procedure and understands that these risks include, but are not limited to: sedation, allergic reaction, infection, perforation and/or bleeding. Alternative means of evaluation and treatment include, among others: physical exam, x-rays, and/or surgical intervention. The patient elects to proceed with this endoscopic procedure. medical equipment was checked for proper function. Hand hygiene and appropriate measures for infection prevention was taken. After the risks, benefits and alternatives of the procedure were thoroughly explained, Informed consent was verified, confirmed and timeout was successfully executed by the treatment team. The patient was anesthetized with topical anesthesia and the EC-[id number] (Pedi C) endoscope was introduced through the mouth and advanced to the second portion of the duodenum. Retroflexion was performed and was normal The gastroscope was then slowly withdrawn and removed. ESOPHAGUS: The mucosa of the esophagus appeared normal. A small hiatal hernia was noted. STOMACH: The mucosa of the stomach appeared normal. DUODENUM: The duodenal mucosa appeared normal in the duodenal bulb and 2nd part duodenum. ADVERSE EVENTS: There were no complications. IMPRESSIONS: 1. The esophagus appeared normal mucosa, dilated esophageal veins suggestive of possible early varices. 2. Small hiatal hernia 3. The mucosa of the stomach appeared normal 4. Normal duodenal mucosa in the duodenal bulb and 2nd part duodenum 5. Retroflexion was performed and was normal RECOMMENDATIONS: No treatment , workup for possible chronic liver disease, colonoscopy when properly prep'ed. PATIENT CONDITION: stable DISPOSITION: Observation REPEAT EXAM: Return 1 year EGD Kristian Echeverria MD eSigned: Kristian Echeverria MD 10/19/2018 12:01 PM cc: PATIENT NAME: Matt Ely MR#: [id number]
[2018-10-19] MEDS ORDERED: PEG 3350/E-Lyte Soln 4000 ML Bottle PO ONE (16:00)
--- NOTE | 2018-10-19 18:23 | P.PNWCN ---
Wound Care Nurse Consult Description: Received wound management consult for LLE wound from Ju PEOPLES Communicated with: Ju PEOPLES and RN Savanna Allen CDU Recommendation: 1.Consult Podiatry for tunneling wound with boggy periwound on L foot. May need debridement. 2.Please cleanse wounds on L lower extremity with normal saline and pat dry. 3.Apply Xeroform gauze to L proximal whaley, L calf and L lower posterior leg wounds. 4. apply optilock to L dorsal foot extending to L ankle area. 5. Cover all wounds with ABD pads, secured with rolled gauze and tape. Change daily until seen by podiatry. Wound/Pressure Injury - Wound Left Proximal whaley Wound Assessment: Ongoing Wound Type: Traumatic Wound Requested from Provider a Wound Care Consult: Yes Length (cm): 15 Width (cm): 11 Depth (cm): 0.1 (~0.1) Wound Bed Appearance: Red Wound Bed Appearance: Wound bed presents with ~80% loose friable skin that is moist and macerated with three openings revealing red non-granulation tissue Surrounding Tissue Temperature: Warm Drainage Description: Serosanguinous Drainage Amount: Scant Drainage Odor: No Odor Dressing Status: Changed Cleansing Solution: Saline Primary Dressing: Xeroform Cover Dressing: ABD pad, rolled gauze and tape Tape Type: Paper Wound Dressing Change Date: 10/19/18 Wound Margin Description: Wound margins are poorly defined and jagged. Left lateral dorsal foot extending to L ankle Wound Staging: Stage II Wound Type: Traumatic Wound Requested from Provider a Wound Care Consult: Yes Length (cm): 17 Width (cm): 10 Depth (cm): 1.2 Wound Bed Appearance: Tunneling/Undermining (Tunnel is located at 12 o'clock measuring 1.7cm) Wound Bed Appearance: Wound bed presents with ~ 70% loose friable skin that is boggy over dorsal foot and ~30% red non granulation tissue where wound is open. There is tunneling at 12 o'clock. Surrounding Tissue Temperature: Warm Drainage Description: Cloudy Serosanguinous drainage Drainage Amount: Moderate Drainage Odor: Slight Odor Dressing Status: Changed Cleansing Solution: Saline Primary Dressing: Optilock Cover Dressing: ABd pad, rolled gauze Tape Type: Paper Wound Dressing Change Date: 10/19/18 Wound Margin Description: Poorly defined Left Calf Wound Assessment: Ongoing Wound Type: Traumatic Wound Requested from Provider a Wound Care Consult: Yes (Patient seen today by inpatient wound care nurse) Length (cm): 7 Width (cm): 7 Depth (cm): 0.1 (~0.1cm) Wound Bed Appearance: Red Wound Bed Appearance: 100% red non-granulation tissue. Periwound is noted with dry black loose skin Surrounding Tissue Temperature: Warm Drainage Description: Serosanguinous Drainage Amount: Scant Drainage Odor: No Odor Dressing Status: Changed Cleansing Solution: Saline Primary Dressing: Xeroform Cover Dressing: ABD pad, rolled gauze Tape Type: Paper Wound Dressing Change Date: 10/19/18 Wound Margin Description: Well defined wound margins Left Lower Posterior Leg Wound Assessment: Ongoing Wound Type: Traumatic Wound Requested from Provider a Wound Care Consult: Yes (Patient seen today by inpatient wound care nurse) Length (cm): 2.1 Width (cm): 2.1 Depth (cm): 0 ( slough) Wound Bed Appearance: Wound bed presents with ~80% yellow slough and ~ 20% red non-granulation tissue. Surrounding Tissue Temperature: Warm Drainage Description: Serosanguinous Drainage Amount: Scant Drainage Odor: No Odor Dressing Status: Changed Cleansing Solution: Saline Primary Dressing: Xeroform gauze Cover Dressing: ABd pad, rolled gauze Tape Type: Paper Wound Dressing Change Date: 10/19/18 Wound Margin Description: Well defined. - Additional Information Patient seen on H pod for evaluation of wound management of LLE.Patient was observed laying in bed with saturated dressing in place on LLE.Patient is awake , alert, oriented, to place, person, time and situation. LLE was placed on dry towel. Removed saturated dressing in place to reveal 4 wounds to LLE the larger rounds are located on the L whaley and L dorsal foot extending to L ankle. Smaller wounds are located on the L calf and L posterior lower leg distal to L calf wound. L whaley,and L dorsal foot wound extending to the L ankle have poorly defined wound margins.wound bed of L dorsal foot extending to the L ankle, presents with ~ 70% loose friable skin that is boggy over dorsal foot and ~30% red non granulation tissue where wound is open. There is tunneling in this wound at 12 o'clock and wound is draining moderate amounts of cloudy sero- sanguinous drainage with slight odor.Wound bed was irrigated with ~20 ml of normal saline and patted dry. Applied optilock over L lateral dorsal foot portion of wound for drainage, then covered entire wound with ABD pad, secured with rolled gauze and tape. Wound bed of L proximal whaley presents with ~80% loose friable skin that is moist and macerated with three openings revealing~20% red non-granulation tissue. Wound drainage is sero-sanguinous, scant with out odor. Wound bed on L calf presents with 100% red non-granulation tissue. Periwound is noted with dry black loose skin. Wound bed is moist and has scant sero- sanguinous drainage that is without odor. Wound distal to L calf wound located on the L posterior, distal lower leg, presents with ~80% yellow slough and ~ 20% red non-granulation tissue.Wound is moist and drainage is scant, serosanguinous without odor. Wounds to L calf, L posterior distal lower leg, and L proximal whaley were all cleansed with normal saline and patted dry. Apply Xeroform gauze over these open wounds and then covered wounds with ABd pads, secured dressing with rolled gauze and tape. Podiatry is recommended. Full wound care description, measurements and all wound care recommendations are noted above.
[2018-10-19] MEDS: Ferrous Sulfate 325 MG Tablet PO SCH (19:17)
[2018-10-19] MEDS: Collagenase Oint 30 GM Tube TOPICAL SCH (19:25)
[2018-10-19] MEDS: Senna/Docusate Sodium 8.6/50 MG Tablet PO SCH (19:26)
[2018-10-20] MEDS: Insulin NovoLOG Aspart Correctional Sugar Inj SQ SCH ×5 (00:33→23:00)
[2018-10-20] MEDS: Senna/Docusate Sodium 8.6/50 MG Tablet PO SCH ×3 (00:34→22:32)
[2018-10-20] MEDS: Ferrous Sulfate 325 MG Tablet PO SCH (08:21)
[2018-10-20] MEDS: Heparin - SQ 10,000 UNITS/ML Vial SQ SCH ×2 (08:22→22:34)
[2018-10-20] MEDS: Collagenase Oint 30 GM Tube TOPICAL SCH (08:23)
--- NOTE | 2018-10-20 10:44 | P.PNIM ---
Subjective Interval history: Follow-up on patient with left lower extremity cellulitis. Patient seen and examined. Patient says he is okay. He denies any acute medical complaints or concerns. Reports good night sleep. Patient states he is able to have a large BM last night after repeating a bowel prep. He denies any fever or chills. He denies any chest pain or shortness of breath. He denies any pain in the left lower extremity. His sisters at the bedside, all questions were addressed and answered. Physical Exam Vital signs: Last Vital Signs Temp 98.6 F 10/20/18 08:00 Pulse 109 H 10/20/18 09:00 Resp 16 10/20/18 08:00 BP 143/76 H 10/20/18 08:00 Pulse Ox 98 10/20/18 08:00 Intake & Output 10/18/18 10/19/18 10/20/18 10/21/18 06:59 06:59 06:59 06:59 Intake Total 1302 / 1302 1228 / 1228 1008 / 1008 100 / 100 Output Total 900 / 900 Balance 402 / 402 1228 / 1228 1008 / 1008 100 / 100 Weight 72.575 kg 73 kg Narrative: GENERAL: Patient is a well-nourished, well-developed Lynda male patient, INAD. Awake and alert. Sister is at the bedside. SKIN: Warm and dry. HEENT: Atraumatic. Normocephalic. PERRLA. EOMI. No scleral icterus. No nasal drainage. MMM. Airway patent. NECK: Trachea midline. CARDIOVASCULAR: Tachycardic. No murmur auscultated. RESPIRATORY: Clear to auscultation. Breath sounds equal bilaterally. No rales , wheezing or rhonchi. ABDOMEN: Soft, non-tender, nondistended. No guarding. Bowel sounds present and normoactive. EXTREMITIES: No clubbing, cyanosis. LLE markedly swollen, warm, has areas of fat necrosis, with some oozing areas, with surrounding erythema, improving slowly. Noted to be less edematous and erythematous. NEUROLOGICAL: Awake and alert. Cranial nerves grossly intact. Able to move all extremities spontaneously. Normal speech. PSYCHIATRIC: Calm and cooperative. Results Labs CBC & Chem 7: 10/19/18 03:51 10/17/18 04:11 Labs: Microbiology 10/14/18 23:25 Blood - Peripheral Aerobic Blood Culture - Final No growth in 5 days 10/14/18 23:25 Blood - Peripheral Anaerobic Blood Culture - Final No growth in 5 days 10/14/18 23:30 Blood - Peripheral Aerobic Blood Culture - Final No growth in 5 days 10/14/18 23:30 Blood - Peripheral Anaerobic Blood Culture - Final No growth in 5 days 10/16/18 16:00 Wound - Leg Gram Stain - Final 10/16/18 16:00 Wound - Leg Wound Culture - Final No growth in 72 hours (aerobically and anaerobically ) Assessment and Plan (1) Adjustment disorder with mixed anxiety and depressed mood: Code(s): F43.23 - Adjustment disorder with mixed anxiety and depressed mood Status: Acute Plan 62-year-old male with a PMH of DM who was brought to the ER by EMS for left leg pain and swelling x4 days. Sepsis with fever 101.3, tachycardia with HR 117 and WBC 23 secondary to cellulitis LLE, resolving White count now trending down Afebrile Blood cx with no growth x 5 days -continue IV antibiotics per ID -continue to monitor clinically -continue to monitor white count - 23.4 -> 17.9 -> 21.4 -> 15.7 Cellulitis LLE doppler neg for DVT CT neg for bony involvement -ID following, appreciate assistance. Started on cefepime, clindamycin and daptomycin. 1/3 daptomycin discontinued by ID. -wound cx with no growth -wound care nurse following, appreciate recommendations -wound care orders placed per recs. Open area identified with tunneling, cultured. Recommended Podiatry consult which was placed. -Await podiatry evaluation, appreciate recommendations -monitor Acute anemia Hgb dropped to 6.8 status post transfusion 1 unit PRBCs B12 1152, folate pending iron 16, %sat 15.2 Hemoglobin appears stable -GI following, appreciate assistance. EGD 10/19 revealed small hiatal hernia, normal stomach and duodenal mucosa, normal esophagus mucosa, dilated esophageal veins suggestive of possible early varices - repeat EGD in 1 year. Colonoscopy was not able to be performed due to poor prep. Patient to undergo colonoscopy today. Keep n.p.o. -Continue on p.o. iron supplementation -repeat H/H as indicated. ABDIEL on CKD stage III -creatinine 2.06, baseline around 1.5. Cr trending down. -UA neg -avoid nephrotoxic agents -monitor kidney function as indicated -repeat lab in a.m. DM Blood sugars overall acceptable off of metformin -continue to hold Metformin -Accuchek and ISS Depression secondary to recent loss of father self care neglect Weight loss CT the abdomen pelvis shows no acute findings -Evaluated by psychiatry, appreciate assistance. The mild to moderate situational anxiety. Recommending clonazepam 0.5 mg as needed for anxiety every 8 hours. Cannabis abuse UDS + cannabis -discussed cessation DVT prophylaxis -Heparin Progress Note: Quality VTE Deep Vein Thrombosis/Pulmonary Embolism Present on Admission: No
--- NOTE | 2018-10-20 14:27 | P.CONPOD ---
History of Present Illness Service: podiatry Consult date: 10/20/18 Reason for Consult: left foot/leg gangrene Primary Care Provider: UNKNOWN History of Present Illness: Patient says he is uncertain when it started, but was told he had blisters on his L leg around [place] time. He says they began draining and he was concerned they may be infected. Review of Systems All other systems reviewed negative except as stated in HPI PMFSH - History History Provided By: Patient - Medical History Medical History: Medical History (Last Reviewed 10/18/18 @ 16:08 by Bhavani Chung) Amputated toe of right foot Diabetes GERD (gastroesophageal reflux disease) Hypertension Peripheral vascular disease - Surgical History Surgical History: Surgical History (Last Reviewed 10/18/18 @ 16:08 by Bhavani Chung) History of open heart surgery - Tobacco History Second Hand Smoke Exposure: No Smoking Status: Never smoker - Alcohol History How Often Do You Have a Drink Containing Alcohol: Never - Substance Use History Substance History: No History of Abuse - Travel History Recent Travel in the [place] Within the Last 8 Weeks: No Recent Travel Out of the Country Within the Last 8 Weeks: No - Immunization History Tetanus Immunization: Unsure Medications and Allergies Active Medications: Active Medications Acetaminophen (Tylenol) 650 mg PO Q4H PRN PRN Reason: Temp > 100.4 Last Admin: 10/16/18 00:14 Dose: 650 mg Acetaminophen (Tylenol) 650 mg PO Q4H PRN PRN Reason: SEE LABEL COMMENTS Al Hydroxide/Mg Hydroxide (Milk Of Danielle Liq) 30 ml PO Q12H PRN PRN Reason: Mild Constipation Bisacodyl (Dulcolax Supp) 10 mg RECTAL DAILY PRN PRN Reason: SEVERE CONSITIPATION Clonazepam (Klonopin) 0.5 mg PO Q8H PRN PRN Reason: ANXIETY Collagenase (Santyl Oint) 1 applicatio TOPICAL DAILY JIMMY Last Admin: 10/20/18 08:23 Dose: 1 applicatio Dextrose (D50w Vial) 50 ml IV.PUSH UNSCH PRN PRN Reason: PER HYPOGLYCEMIA PROTOCOL Diphenhydramine HCl (Benadryl) 25 mg PO Q4H PRN PRN Reason: SEE LABEL COMMENTS Last Admin: 10/16/18 17:43 Dose: 25 mg Ferrous Sulfate (Ferosul) 325 mg PO DAILY JIMMY Last Admin: 10/20/18 08:21 Dose: 325 mg Glucagon (Glucagon Inj) 1 mg OTHER PRN PRN PRN Reason: for Hypoglycemia Protocol Heparin Sodium (Porcine) (Heparin Inj) 5,000 units SQ Q12H [facility] Last Admin: 10/20/18 08:22 Dose: Not Given Lactated Ringer's (Lr 1000 Ml Inj) 1,000 mls @ 30 mls/hr IV.SIG .Q24H [facility] Stop: 10/22/18 11:29 Sodium Chloride (Ns Inj) 500 mls @ 30 mls/hr IV.SIG .Q10H [facility] Clindamycin Phosphate 600 mg/ (Sodium Chloride) 104 mls @ 200 mls/hr IV.SIG Q8H [facility] Last Infusion: 10/20/18 11:00 Dose: Infused Cefepime HCl 1,000 mg/ Sodium (Chloride) 100 mls @ 200 mls/hr IV.SIG Q12H [facility] Last Infusion: 10/20/18 07:01 Dose: Infused Insulin Aspart (Novolog Insulin Correctional Sugar Inj) 0 unit SQ ACHS [facility]; Protocol Last Admin: 10/20/18 12:06 Dose: Not Given Lactulose (Lactulose Liq) 30 ml PO DAILY PRN PRN Reason: SEVERE CONSITIPATION Metoprolol Tartrate (Lopressor) 25 mg PO 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 [facility] Stop: 10/22/18 11:16 Ondansetron HCl (Zofran Inj) 4 mg IV.PUSH Q6H PRN PRN Reason: NAUSEA OR VOMITING Last Admin: 10/20/18 11:04 Dose: 4 mg Povidone Iodine (Betadine 5% Antisepsis Kit) 1 applicatio EACH NARE 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 [facility] Stop: 10/22/18 11:16 Senna/Docusate Sodium (Pema-Colace) 1 tab PO BID [facility] Last Admin: 10/20/18 08:20 Dose: Not Given Sennosides (Senokot) 17.2 mg PO Q12H PRN PRN Reason: Moderate Constipation Sodium Chloride (Ns Flush) 2 ml IV.FLUSH PRN PRN PRN Reason: FLUSH AFTER USING IV ACCESS Last Admin: 10/20/18 11:05 Dose: 2 ml Sodium Chloride (Ns Flush) 2 ml IV.FLUSH BID [facility] Last Admin: 10/20/18 08:22 Dose: 2 ml Allergies Allergy/AdvReac Type Severity Reaction Status Date / Time No Known Allergies Allergy Verified 10/14/18 22:12 Home Medications Medication Instructions Recorded Confirmed Type metformin 500 mg PO BID 10/14/18 10/14/18 History Physical Exam Vital signs: Vital Signs 10/19/18 16:00 10/19/18 18:00 10/19/18 20:15 Temperature 97.4 F L 97.6 F Pulse Rate 109 H 109 H 112 H Respiratory Rate 18 20 Blood Pressure 132/67 132/81 Pulse Oximetry 96 98 10/20/18 00:00 10/20/18 04:00 10/20/18 08:00 Temperature 97.1 F L 97.2 F L 98.6 F Pulse Rate 98 H 80 96 H Respiratory Rate 16 18 16 Blood Pressure 135/69 130/71 143/76 H Pulse Oximetry 99 98 98 10/20/18 09:00 10/20/18 11:36 10/20/18 12:59 Temperature 98.3 F 98.2 F Pulse Rate 109 H 102 H 111 H Respiratory Rate 16 18 Blood Pressure 157/85 H 121/68 Pulse Oximetry 99 95 Intake & Output 10/19/18 10/20/18 10/20/18 18:59 06:59 18:59 Intake Total 404 / 404 604 / 604 204 / 204 Balance 404 / 404 604 / 604 204 / 204 Weight 73 kg Intake: IV 204 / 204 104 / 104 204 / 204 Maxipime Inj 1,000 MG In NS Inj 100 / 100 100 / 100 100 ML @ 200 mls/hr IV.SIG Q12H [facility] Rx#:[id number] Cleocin Inj 600 MG In NS Inj 104 / 104 104 / 104 104 / 104 100 ML @ 200 mls/hr IV.SIG Q8H JIMMY Rx#:[id number] Oral 500 / 500 Anesthesia Amount 200 / 200 Other: # Voids 3 Date of Last Bowel Movement 10/14/18 10/20/18 10/20/18 Narrative: left leg/ankle/foot with large bullae present and serous drainage present. Warm skin temperature. Necrotic tissue to plantar hallux and dorsolateral forefoot area. Thin atrophic skin present otherwise. Sensation absent to light touch. Results - Labs CBC & Chem 7: 10/19/18 03:51 10/17/18 04:11 Laboratory Results - last 24 hr 10/16/18 10/19/18 10/19/18 12:15 14:06 18:30 POC Glucose 142 H 201 H RBC Folate 643 10/19/18 10/20/18 10/20/18 23:47 08:19 12:04 POC Glucose 184 H 126 H 122 H RBC Folate Microbiology 10/14/18 23:25 Blood - Peripheral Aerobic Blood Culture - Final No growth in 5 days 10/14/18 23:25 Blood - Peripheral Anaerobic Blood Culture - Final No growth in 5 days 10/14/18 23:30 Blood - Peripheral Aerobic Blood Culture - Final No growth in 5 days 10/14/18 23:30 Blood - Peripheral Anaerobic Blood Culture - Final No growth in 5 days Assessment and Plan - Assessment (1) Atherosclerosis of [place] arteries of extremities with gangrene, left leg Code(s): I70.262 - Atherosclerosis of [place] arteries of extremities with gangrene, left leg Status: Acute (2) Cellulitis of left leg Code(s): L03.116 - Cellulitis of left lower limb Status: Acute - Plan Continue IV antibiotics Consulted vascular. Anticipate patient may need BKA. Appears to be extensive soft tissue loss present already left lower leg. Will await vascular recommendations and monitor.
[2018-10-20] MEDS ORDERED: Magnesium Citrate Liq 300 ML Bottle PO ONE (15:00)
--- NOTE | 2018-10-20 17:29 | P.PNVS ---
Subjective Subjective/Hospital Course: Referral received. Spoke to Dr Kirk. Full consult TF Thanks J Objective Vital Signs / I&O: Vital Signs 10/19/18 18:00 10/19/18 20:15 10/20/18 00:00 Temperature 97.6 F 97.1 F L Pulse Rate 109 H 112 H 98 H Respiratory Rate 20 16 Blood Pressure 132/81 135/69 Pulse Oximetry 98 99 10/20/18 04:00 10/20/18 08:00 10/20/18 09:00 Temperature 97.2 F L 98.6 F Pulse Rate 80 96 H 109 H Respiratory Rate 18 16 Blood Pressure 130/71 143/76 H Pulse Oximetry 98 98 10/20/18 11:36 10/20/18 12:59 10/20/18 17:04 Temperature 98.3 F 98.2 F 99.2 F Pulse Rate 102 H 111 H 108 H Respiratory Rate 16 18 20 Blood Pressure 157/85 H 121/68 122/66 Pulse Oximetry 99 95 97 10/20/18 17:06 Temperature 99 F Pulse Rate 103 H Respiratory Rate 20 Blood Pressure 135/81 Pulse Oximetry 100 Intake & Output 10/19/18 10/20/18 10/20/18 18:59 06:59 18:59 Intake Total 404 / 404 604 / 604 304 / 304 Balance 404 / 404 604 / 604 304 / 304 Weight 73 kg 73 kg Intake: IV 204 / 204 104 / 104 204 / 204 Maxipime Inj 1,000 MG In NS Inj 100 / 100 100 / 100 100 ML @ 200 mls/hr IV.SIG Q12H [facility] Rx#:[id number] Cleocin Inj 600 MG In NS Inj 104 / 104 104 / 104 104 / 104 100 ML @ 200 mls/hr IV.SIG Q8H [facility] Rx#:[id number] Oral 500 / 500 Anesthesia Amount 200 / 200 100 / 100 Other: # Voids 3 Date of Last Bowel Movement 10/14/18 10/20/18 10/20/18 Laboratory Results - last 24 hr 10/16/18 10/19/18 10/19/18 12:15 18:30 23:47 POC Glucose 201 H 184 H RBC Folate 643 10/20/18 10/20/18 08:19 12:04 POC Glucose 126 H 122 H RBC Folate
[2018-10-21 07:50] LABS: Baso # (Auto) 0.1 th/mm3 (0.0-0.2); Baso % (Auto) 0.9 % (0.0-2.0); Eos % (Auto) 0.2 % (0.0-4.0); Hematocrit 23.8 % (39.0-51.0); Hemoglobin 7.9 gm/dL (13.0-17.0); Lymph # (Auto) 1.2 th/mm3 (1.0-4.8); Lymph % (Auto) 11.6 % (9.0-44.0); Mean Corpuscular HGB Conc 33.4 % (32.0-36.0); Mean Corpuscular Hemoglobin 30.8 pg (27.0-34.0); Mean Corpuscular Volume 92.3 fL (80.0-100.0); Mean Platelet Volume 8.6 fL (7.0-11.0); Mono # (Auto) 0.5 th/mm3 (0.0-0.9); Mono % (Auto) 4.8 % (0.0-8.0); Neut # (Auto) 8.8 th/mm3 (1.8-7.7); Neut % (Auto) 82.5 % (16.0-70.0); Platelet Count 339 th/mm3 (150-450); Red Blood Count 2.57 mil/mm3 (4.50-5.90); Red Cell Distribution Width 15.2 % (11.6-17.2); White Blood Count 10.7 th/mm3 (4.0-11.0)
[2018-10-21 08:07] LABS: Alanine Aminotransferase 19 U/L (12-78); Albumin 1.4 g/dL (3.4-5.0); Anion Gap 6 meq/L (5-15); Aspartate Aminotransferase 34 U/L (15-37); Blood Urea Nitrogen 10 mg/dL (7-18); Calcium 7.6 mg/dL (8.5-10.1); Carbon Dioxide 26.8 meq/L (21.0-32.0); Chloride 109 meq/L (98-107); Glomerular Filtration Rate Greater Than 89 mL/min (>89); Glucose,Random 107 mg/dL (74-106); Potassium 3.9 meq/L (3.5-5.1); Sodium 142 meq/L (136-145)
[2018-10-21 08:09] LABS: Alkaline Phosphatase 78 U/L (45-117); Total Protein 7.6 g/dL (6.4-8.2)
[2018-10-21] MEDS: Senna/Docusate Sodium 8.6/50 MG Tablet PO SCH ×2 (08:49→21:14)
[2018-10-21] MEDS: Heparin - SQ 10,000 UNITS/ML Vial SQ SCH ×2 (08:49→20:11)
[2018-10-21] MEDS: Ferrous Sulfate 325 MG Tablet PO SCH (08:49)
[2018-10-21] MEDS: Collagenase Oint 30 GM Tube TOPICAL SCH (08:50)
[2018-10-21] MEDS: Insulin NovoLOG Aspart Correctional Sugar Inj SQ SCH ×4 (08:50→21:33)
--- NOTE | 2018-10-21 10:25 | P.PNGI ---
Subjective Interval history: Pt is resting in bed, denies nausea, vomiting, hematemesis, melena or hematochezia <Miguel Caba - Last Filed: 10/21/18 10:19> Physical Exam Vital signs: Vital Signs 10/20/18 11:36 10/20/18 12:59 10/20/18 17:04 Temperature 98.3 F 98.2 F 99.2 F Pulse Rate 102 H 111 H 108 H Respiratory Rate 16 18 20 Blood Pressure 157/85 H 121/68 122/66 Pulse Oximetry 99 95 97 10/20/18 17:06 10/20/18 20:00 10/21/18 00:00 Temperature 99 F 98.9 F 98.8 F Pulse Rate 103 H 112 H 99 H Respiratory Rate 20 20 20 Blood Pressure 135/81 115/62 125/65 Pulse Oximetry 100 99 97 10/21/18 01:32 10/21/18 03:57 10/21/18 04:00 Temperature 98.8 F 98.8 F Pulse Rate 94 H 99 H 99 H Respiratory Rate 18 18 Blood Pressure 136/71 136/71 Pulse Oximetry 97 100 10/21/18 06:27 10/21/18 07:45 Temperature 98.4 F Pulse Rate 92 H 96 H Respiratory Rate 18 Blood Pressure 152/80 H Pulse Oximetry 99 Intake & Output 10/20/18 10/21/18 10/21/18 18:59 06:59 18:59 Intake Total 404 / 404 308 / 308 Output Total 1200 / 1200 Balance 404 / 404 -892 / -892 Weight 73 kg Intake: IV 304 / 304 308 / 308 Maxipime Inj 1,000 MG In NS Inj 200 / 200 100 / 100 100 ML @ 200 mls/hr IV.SIG Q12H [facility] Rx#:[id number] Cleocin Inj 600 MG In NS Inj 104 / 104 208 / 208 100 ML @ 200 mls/hr IV.SIG Q8H [facility] Rx#:[id number] Anesthesia Amount 100 / 100 Output: Urine 1200 / 1200 Other: # Voids 3 Date of Last Bowel Movement 10/20/18 10/20/18 10/20/18 Narrative: GENERAL: Patient is a well-nourished, well-developed Lynda male patient, INAD. Awake and alert. CARDIOVASCULAR: Tachycardic. No murmur auscultated. RESPIRATORY: Clear to auscultation. Breath sounds equal bilaterally. No rales , wheezing or rhonchi. ABDOMEN: Soft, non-tender, nondistended. No guarding. Bowel sounds present and normoactive. EXTREMITIES: No clubbing, cyanosis. LLE with gauze NEUROLOGICAL: Awake and alert. Normal speech. PSYCHIATRIC: Calm and cooperative. <Miguel Caba - Last Filed: 10/21/18 10:19> Vital signs: Vital Signs 10/20/18 17:04 10/20/18 17:06 10/20/18 20:00 Temperature 99.2 F 99 F 98.9 F Pulse Rate 108 H 103 H 112 H Respiratory Rate 20 20 20 Blood Pressure 122/66 135/81 115/62 Pulse Oximetry 97 100 99 10/21/18 00:00 10/21/18 01:32 10/21/18 03:57 Temperature 98.8 F 98.8 F Pulse Rate 99 H 94 H 99 H Respiratory Rate 20 18 Blood Pressure 125/65 136/71 Pulse Oximetry 97 97 10/21/18 04:00 10/21/18 06:27 10/21/18 07:45 Temperature 98.8 F 98.4 F Pulse Rate 99 H 92 H 96 H Respiratory Rate 18 18 Blood Pressure 136/71 152/80 H Pulse Oximetry 100 99 10/21/18 11:55 Temperature 98.1 F Pulse Rate 102 H Respiratory Rate 14 Blood Pressure 162/81 H Pulse Oximetry 100 Intake & Output 10/20/18 10/21/18 10/21/18 18:59 06:59 18:59 Intake Total 404 / 404 308 / 308 Output Total 1200 / 1200 Balance 404 / 404 -892 / -892 Weight 73 kg Intake: IV 304 / 304 308 / 308 Maxipime Inj 1,000 MG In NS Inj 200 / 200 100 / 100 100 ML @ 200 mls/hr IV.SIG Q12H [facility] Rx#:[id number] Cleocin Inj 600 MG In NS Inj 104 / 104 208 / 208 100 ML @ 200 mls/hr IV.SIG Q8H [facility]IMMY Rx#:[id number] Anesthesia Amount 100 / 100 Output: Urine 1200 / 1200 Other: # Voids 3 Date of Last Bowel Movement 10/20/18 10/20/18 10/20/18 <Naty Calderón - Last Filed: 10/21/18 14:32> Results - Labs CBC & Chem 7: 10/21/18 06:19 10/21/18 06:19 Laboratory Results - last 24 hr 10/20/18 10/20/18 10/20/18 12:04 22:39 22:53 WBC RBC Hgb Hct MCV MCH MCHC RDW Plt Count MPV Neut % (Auto) Lymph % (Auto) Atkinson % (Auto) Eos % (Auto) Baso % (Auto) Neut # (Auto) Lymph # (Auto) [place]kinson # (Auto) Eos # (Auto) Baso # (Auto) WBC Differential Differential Comment Sodium Potassium Chloride Carbon Dioxide Anion Gap BUN Creatinine Estimated GFR POC Glucose 122 H 309 H 335 H Random Glucose Calcium Total Bilirubin AST ALT Alkaline Phosphatase Total Protein Albumin 10/21/18 10/21/18 10/21/18 06:19 06:19 07:33 WBC 10.7 RBC 2.57 L Hgb 7.9 L Hct 23.8 L MCV 92.3 MCH 30.8 MCHC 33.4 RDW 15.2 Plt Count 339 MPV 8.6 Neut % (Auto) 82.5 H Lymph % (Auto) 11.6 Atkinson % (Auto) 4.8 Eos % (Auto) 0.2 Baso % (Auto) 0.9 Neut # (Auto) 8.8 H Lymph # (Auto) 1.2 Atkinson # (Auto) 0.5 Eos # (Auto) 0.0 Baso # (Auto) 0.1 WBC Differential . Differential Comment Auto diff final Sodium 142 Potassium 3.9 Chloride 109 H Carbon Dioxide 26.8 Anion Gap 6 BUN 10 Creatinine 0.89 Estimated GFR Greater than 89 POC Glucose 134 H Random Glucose 107 H Calcium 7.6 L Total Bilirubin 0.4 AST 34 ALT 19 Alkaline Phosphatase 78 Total Protein 7.6 Albumin 1.4 L <AmMiguel martinez - Last Filed: 10/21/18 10:19> - Labs CBC & Chem 7: 10/21/18 06:19 10/21/18 06:19 Laboratory Results - last 24 hr 10/20/18 10/20/18 10/21/18 22:39 22:53 06:19 WBC 10.7 RBC 2.57 L Hgb 7.9 L Hct 23.8 L MCV 92.3 MCH 30.8 MCHC 33.4 RDW 15.2 Plt Count 339 MPV 8.6 Neut % (Auto) 82.5 H Lymph % (Auto) 11.6 Atkinson % (Auto) 4.8 Eos % (Auto) 0.2 Baso % (Auto) 0.9 Neut # (Auto) 8.8 H Lymph # (Auto) 1.2 Atkinson # (Auto) 0.5 Eos # (Auto) 0.0 Baso # (Auto) 0.1 WBC Differential . Differential Comment Auto diff final Sodium Potassium Chloride Carbon Dioxide Anion Gap BUN Creatinine Estimated GFR POC Glucose 309 H 335 H Random Glucose Calcium Total Bilirubin AST ALT Alkaline Phosphatase Total Protein Albumin 10/21/18 10/21/18 10/21/18 06:19 07:33 12:04 WBC RBC Hgb Hct MCV MCH MCHC RDW Plt Count MPV Neut % (Auto) Lymph % (Auto) [place]kinson % (Auto) Eos % (Auto) Baso % (Auto) Neut # (Auto) Lymph # (Auto) Atkinson # (Auto) Eos # (Auto) Baso # (Auto) WBC Differential Differential Comment Sodium 142 Potassium 3.9 Chloride 109 H Carbon Dioxide 26.8 Anion Gap 6 BUN 10 Creatinine 0.89 Estimated GFR Greater than 89 POC Glucose 134 H 210 H Random Glucose 107 H Calcium 7.6 L Total Bilirubin 0.4 AST 34 ALT 19 Alkaline Phosphatase 78 Total Protein 7.6 Albumin 1.4 L <Naty Calderón - Last Filed: 10/21/18 14:32> Assessment and Plan - Plan Assessment Anemiapatient denies any obvious source of bleeding including hematochezia, melena, hematemesis and coffee-ground emesis. Patient denies taking any NSAIDs, blood thinners. He denies any alcohol use or nicotine use. hgb today is 7.9 declining S/P EGD on 10/19/18 1. The esophagus appeared normal mucosa, dilated esophageal veins suggestive of possible early varices. 2. Small hiatal hernia 3. The mucosa of the stomach appeared normal 4. Normal duodenal mucosa in the duodenal bulb and 2nd part duodenum 5. Retroflexion was performed and was normal Unintentional weight losspatient reports 20 pound weight loss over the past 4- 5 months, he is unsure the etiology. CT abdomen/pelvis WO IV contrast (10/16/18) no acute findings within the abdomen. Trace free fluid in the pelvis of unknown etiology. Cellulitisper primary team-patient has been febrile Plan Clears colonoscopy tomorrow Obtain consent GoLYTELY prep N.p.o. after midnight Hold heparin after mn Monitor H/H Further recommendations to follow This patient has been seen and examined by myself and Dr. Calderón and this note is written on her behalf <Miguel Caba - Last Filed: 10/21/18 10:19> - Attending Attestation agree with above <Naty Calderón - Last Filed: 10/21/18 14:32>
--- NOTE | 2018-10-21 13:02 | P.PNID ---
Subjective Remarks: Patient is a 62-year-old male, presented to the hospital complaining of swelling and pain in his left lower extremity. He could not really tell me how long it has been there. He denies any trauma, denies any previous episode of cellulitis in the left lower extremity. He denies any fever chills or sweats. But since his been here he had been febrile up to 101+. He denies any sore throat or any respiratory complaint. Denies any nausea or vomiting, GI or any urinary complaints. On presentation his WBC was 23,000. His creatinine was up to 2.06. CT of the left lower extremity did not show any abscess, osteophyte just significant swelling compatible with cellulitis. He is on cefepime and vancomycin Infectious disease consultation has been requested to assist with evaluation and treatment of his cellulitis. Notes reviewed Temps normal Podiatry notes reviewed Being eval by vascular Wound C/S negative WBC down to normal Creatinine normal Antibiotics: Cefepime Clindamycin Past Medical History: Past HX: hypertension, diabetes mellitus, coronary artery disease, CHF (last EF of 40% in 08/01) peripheral arterial disease, hyperlipidemia, depression, GERD and osteoarthritis Past Surgical History: CABG Right first toe amputation Left arm I&D for MRSA Allergies/Adverse Reactions: Allergies No Known Allergies Allergy (Verified 10/14/18 22:12) Objective Vital Signs 10/20/18 17:04 10/20/18 17:06 10/20/18 20:00 Temperature 99.2 F 99 F 98.9 F Pulse Rate 108 H 103 H 112 H Respiratory Rate 20 20 20 Blood Pressure 122/66 135/81 115/62 Pulse Oximetry 97 100 99 10/21/18 00:00 10/21/18 01:32 10/21/18 03:57 Temperature 98.8 F 98.8 F Pulse Rate 99 H 94 H 99 H Respiratory Rate 20 18 Blood Pressure 125/65 136/71 Pulse Oximetry 97 97 10/21/18 04:00 10/21/18 06:27 10/21/18 07:45 Temperature 98.8 F 98.4 F Pulse Rate 99 H 92 H 96 H Respiratory Rate 18 18 Blood Pressure 136/71 152/80 H Pulse Oximetry 100 99 10/21/18 11:55 Temperature 98.1 F Pulse Rate 102 H Respiratory Rate 14 Blood Pressure 162/81 H Pulse Oximetry 100 Intake & Output 10/20/18 10/21/18 10/21/18 18:59 06:59 18:59 Intake Total 404 / 404 308 / 308 Output Total 1200 / 1200 Balance 404 / 404 -892 / -892 Weight 73 kg Intake: IV 304 / 304 308 / 308 Maxipime Inj 1,000 MG In NS Inj 200 / 200 100 / 100 100 ML @ 200 mls/hr IV.SIG Q12H JIMMY Rx#:[id number] Cleocin Inj 600 MG In NS Inj 104 / 104 208 / 208 100 ML @ 200 mls/hr IV.SIG Q8H JIMMY Rx#:[id number] Anesthesia Amount 100 / 100 Output: Urine 1200 / 1200 Other: # Voids 3 Date of Last Bowel Movement 10/20/18 10/20/18 10/20/18 10/14/18 23:25 Blood - Peripheral Aerobic Blood Culture - Final No growth in 5 days 10/14/18 23:25 Blood - Peripheral Anaerobic Blood Culture - Final No growth in 5 days 10/14/18 23:30 Blood - Peripheral Aerobic Blood Culture - Final No growth in 5 days 10/14/18 23:30 Blood - Peripheral Anaerobic Blood Culture - Final No growth in 5 days 10/16/18 16:00 Wound - Leg Gram Stain - Final 10/16/18 16:00 Wound - Leg Wound Culture - Final No growth in 72 hours (aerobically and anaerobically ) Lab - Hematology Results 10/21/18 06:19 WBC 10.7 RBC 2.57 L Hgb 7.9 L Hct 23.8 L MCV 92.3 MCH 30.8 MCHC 33.4 RDW 15.2 Plt Count 339 MPV 8.6 Neut % (Auto) 82.5 H Lymph % (Auto) 11.6 [place] % (Auto) 4.8 Eos % (Auto) 0.2 Baso % (Auto) 0.9 Neut # (Auto) 8.8 H Lymph # (Auto) 1.2 [place] # (Auto) 0.5 Eos # (Auto) 0.0 Baso # (Auto) 0.1 WBC Differential . Differential Comment Auto diff final Lab - Chemistry Results 10/16/18 10/19/18 10/19/18 12:15 14:06 18:30 Sodium Potassium Chloride Carbon Dioxide Anion Gap BUN Creatinine Estimated GFR POC Glucose 142 H 201 H Random Glucose Calcium Total Bilirubin AST ALT Alkaline Phosphatase Total Protein Albumin RBC Folate 643 10/19/18 10/20/18 10/20/18 23:47 08:19 12:04 Sodium Potassium Chloride Carbon Dioxide Anion Gap BUN Creatinine Estimated GFR POC Glucose 184 H 126 H 122 H Random Glucose Calcium Total Bilirubin AST ALT Alkaline Phosphatase Total Protein Albumin RBC Folate 10/20/18 10/20/18 10/21/18 22:39 22:53 06:19 Sodium 142 Potassium 3.9 Chloride 109 H Carbon Dioxide 26.8 Anion Gap 6 BUN 10 Creatinine 0.89 Estimated GFR Greater than 89 POC Glucose 309 H 335 H Random Glucose 107 H Calcium 7.6 L Total Bilirubin 0.4 AST 34 ALT 19 Alkaline Phosphatase 78 Total Protein 7.6 Albumin 1.4 L RBC Folate 10/21/18 10/21/18 07:33 12:04 Sodium Potassium Chloride Carbon Dioxide Anion Gap BUN Creatinine Estimated GFR POC Glucose 134 H 210 H Random Glucose Calcium Total Bilirubin AST ALT Alkaline Phosphatase Total Protein Albumin RBC Folate Imaging: ITS Impressions Lower Extremity CT 10/15/18 00:00 CONCLUSION: 1. Cellulitis without abscess or osteomyelitis. Venous Doppler Study 10/15/18 00:00 CONCLUSION: 1. No sonographic evidence for left lower extremity DVT. Abdomen/Pelvis CT 10/16/18 00:00 CONCLUSION: 1. No acute findings within the abdomen. Trace free fluid in the pelvis of unknown etiology. Physical Exam: GENERAL: awake and alert, not in respiratory distress. SKIN: Warm and dry. No generalized rash, EYES: Pale conjunctiva. No petechia or hemorrhage. No scleral icterus. No injection or drainage. EARS, NOSE AND THROAT: Mucous membranes pink and moist. No oral lesions noted. No exudate. No oral thrush. NECK: Trachea midline. Supple and not tender, no meningeal signs CARDIOVASCULAR: Regular rate and rhythm. No murmurs, rubs or gallops heard RESPIRATORY: Clear to auscultation. Breath sounds equal bilaterally. No rales , wheezing or rhonchi ABDOMEN: Soft, non-tender, nondistended. Bowel sounds present and normoactive. No guarding. No rebound. No organomegaly. EXTREMITIES: No clubbing, cyanosis. LLE with improving edema, improving redness. Wounds with dressing; still with necrotic tissue on anterior ankle. No odor. No calf tenderness. NEUROLOGICAL: Non-focal. PSYCHIATRIC: calm and cooperative. LINE: No evidence of infection Assessment and Plan - Plan Impression Sepsis due to LLE cellulitis Cellulitis LLE Open wounds LLE Leukocytosis, up again Renal insufficiency, better Known DM PVD Anemia Recommendation Continue cefepime Continue Clindamycin Elevate leg Wound care Being eval by vascular Monitor progress
--- NOTE | 2018-10-21 15:19 | P.PNPOD ---
Subjective Interval history: LLE PVD Cellulitis Physical Exam Vital signs: Vital Signs 10/20/18 17:04 10/20/18 17:06 10/20/18 20:00 Temperature 99.2 F 99 F 98.9 F Pulse Rate 108 H 103 H 112 H Respiratory Rate 20 20 20 Blood Pressure 122/66 135/81 115/62 Pulse Oximetry 97 100 99 10/21/18 00:00 10/21/18 01:32 10/21/18 03:57 Temperature 98.8 F 98.8 F Pulse Rate 99 H 94 H 99 H Respiratory Rate 20 18 Blood Pressure 125/65 136/71 Pulse Oximetry 97 97 10/21/18 04:00 10/21/18 06:27 10/21/18 07:45 Temperature 98.8 F 98.4 F Pulse Rate 99 H 92 H 96 H Respiratory Rate 18 18 Blood Pressure 136/71 152/80 H Pulse Oximetry 100 99 10/21/18 11:55 Temperature 98.1 F Pulse Rate 102 H Respiratory Rate 14 Blood Pressure 162/81 H Pulse Oximetry 100 Intake & Output 10/20/18 10/21/18 10/21/18 18:59 06:59 18:59 Intake Total 404 / 404 308 / 308 Output Total 1200 / 1200 Balance 404 / 404 -892 / -892 Weight 73 kg Intake: IV 304 / 304 308 / 308 Maxipime Inj 1,000 MG In NS Inj 200 / 200 100 / 100 100 ML @ 200 mls/hr IV.SIG Q12H JIMMY Rx#:[id number] Cleocin Inj 600 MG In NS Inj 104 / 104 208 / 208 100 ML @ 200 mls/hr IV.SIG Q8H JIMMY Rx#:[id number] Anesthesia Amount 100 / 100 Output: Urine 1200 / 1200 Other: # Voids 3 Date of Last Bowel Movement 10/20/18 10/20/18 10/20/18 Narrative: LLE + edema erythema and drainage. + Ischemic changes, left dorsal ulcer, non palpable pulses. Medications and Allergies Active Medications: Active Medications Acetaminophen (Tylenol) 650 mg PO Q4H PRN PRN Reason: Temp > 100.4 Last Admin: 10/16/18 00:14 Dose: 650 mg Acetaminophen (Tylenol) 650 mg PO Q4H PRN PRN Reason: SEE LABEL COMMENTS Al Hydroxide/Mg Hydroxide (Milk Of Danielle Liq) 30 ml PO Q12H PRN PRN Reason: Mild Constipation Bisacodyl (Dulcolax Supp) 10 mg RECTAL DAILY PRN PRN Reason: SEVERE CONSITIPATION Clonazepam (Klonopin) 0.5 mg PO Q8H PRN PRN Reason: ANXIETY Collagenase (Santyl Oint) 1 applicatio TOPICAL DAILY COUNTS INCLUDE 234 BEDS AT THE [facility] Last Admin: 10/21/18 08:50 Dose: 1 applicatio Dextrose (D50w Vial) 50 ml IV.PUSH UNSCH PRN PRN Reason: PER HYPOGLYCEMIA PROTOCOL Diphenhydramine HCl (Benadryl) 25 mg PO Q4H PRN PRN Reason: SEE LABEL COMMENTS Last Admin: 10/16/18 17:43 Dose: 25 mg Ferrous Sulfate (Ferosul) 325 mg PO DAILY COUNTS INCLUDE 234 BEDS AT THE [facility] Last Admin: 10/21/18 08:49 Dose: 325 mg Glucagon (Glucagon Inj) 1 mg OTHER PRN PRN PRN Reason: for Hypoglycemia Protocol Heparin Sodium (Porcine) (Heparin Inj) 5,000 units SQ Q12H COUNTS INCLUDE 234 BEDS AT THE [facility] Last Admin: 10/21/18 08:49 Dose: 5,000 units Lactated Ringer's (Lr 1000 Ml Inj) 1,000 mls @ 30 mls/hr IV.SIG .Q24H COUNTS INCLUDE 234 BEDS AT THE [facility] Stop: 10/22/18 11:29 Last Admin: 10/21/18 13:23 Dose: Not Given Sodium Chloride (Ns Inj) 500 mls @ 30 mls/hr IV.SIG .Q10H COUNTS INCLUDE 234 BEDS AT THE [facility] Last Admin: 10/20/18 18:01 Dose: Not Given Clindamycin Phosphate 600 mg/ (Sodium Chloride) 104 mls @ 200 mls/hr IV.SIG Q8H COUNTS INCLUDE 234 BEDS AT THE [facility] Last Admin: 10/21/18 13:23 Dose: 200 mls/hr Cefepime HCl 1,000 mg/ Sodium (Chloride) 100 mls @ 200 mls/hr IV.SIG Q12H COUNTS INCLUDE 234 BEDS AT THE [facility] Last Infusion: 10/21/18 04:34 Dose: Infused Insulin Aspart (Novolog Insulin Correctional Sugar Inj) 0 unit SQ ACHS COUNTS INCLUDE 234 BEDS AT THE [facility]; Protocol Last Admin: 10/21/18 13:23 Dose: Not Given Lactulose (Lactulose Liq) 30 ml PO DAILY PRN PRN Reason: SEVERE CONSITIPATION Metoprolol Tartrate (Lopressor) 25 mg PO SERVICE STATION CASHIER COUNTS INCLUDE 234 BEDS AT THE [facility] Stop: 10/22/18 11:16 Ondansetron HCl (Zofran Inj) 4 mg IV.PUSH Q6H PRN PRN Reason: NAUSEA OR VOMITING Last Admin: 10/20/18 11:04 Dose: 4 mg Polyethylene Glycol/Electrolytes (Colyte Liq) 4,000 ml PO ONCE ONE Stop: 10/21/18 16:01 Povidone Iodine (Betadine 5% Antisepsis Kit) 1 applicatio EACH NARE SERVICE STATION CASHIER COUNTS INCLUDE 234 BEDS AT THE [facility] Stop: 10/22/18 11:16 Senna/Docusate Sodium (Pema-Colace) 1 tab PO BID COUNTS INCLUDE 234 BEDS AT THE [facility] Last Admin: 10/21/18 08:49 Dose: 1 tab Sennosides (Senokot) 17.2 mg PO Q12H PRN PRN Reason: Moderate Constipation Sodium Chloride (Ns Flush) 2 ml IV.FLUSH PRN PRN PRN Reason: FLUSH AFTER USING IV ACCESS Last Admin: 10/20/18 11:05 Dose: 2 ml Sodium Chloride (Ns Flush) 2 ml IV.FLUSH BID COUNTS INCLUDE 234 BEDS AT THE [facility] Last Admin: 10/21/18 08:50 Dose: 2 ml Allergies Allergy/AdvReac Type Severity Reaction Status Date / Time No Known Allergies Allergy Verified 10/14/18 22:12 Home Medications Medication Instructions Recorded Confirmed Type metformin 500 mg PO BID 10/14/18 10/14/18 History Results - Labs CBC & Chem 7: 10/21/18 06:19 10/21/18 06:19 Laboratory Results - last 24 hr 10/20/18 10/20/18 10/21/18 22:39 22:53 06:19 WBC 10.7 RBC 2.57 L Hgb 7.9 L Hct 23.8 L MCV 92.3 MCH 30.8 MCHC 33.4 RDW 15.2 Plt Count 339 MPV 8.6 Neut % (Auto) 82.5 H Lymph % (Auto) 11.6 [place] % (Auto) 4.8 Eos % (Auto) 0.2 Baso % (Auto) 0.9 Neut # (Auto) 8.8 H Lymph # (Auto) 1.2 [place] # (Auto) 0.5 Eos # (Auto) 0.0 Baso # (Auto) 0.1 WBC Differential . Differential Comment Auto diff final Sodium Potassium Chloride Carbon Dioxide Anion Gap BUN Creatinine Estimated GFR POC Glucose 309 H 335 H Random Glucose Calcium Total Bilirubin AST ALT Alkaline Phosphatase Total Protein Albumin 10/21/18 10/21/18 10/21/18 06:19 07:33 12:04 WBC RBC Hgb Hct MCV MCH MCHC RDW Plt Count MPV Neut % (Auto) Lymph % (Auto) [place] % (Auto) Eos % (Auto) Baso % (Auto) Neut # (Auto) Lymph # (Auto) [place] # (Auto) Eos # (Auto) Baso # (Auto) WBC Differential Differential Comment Sodium 142 Potassium 3.9 Chloride 109 H Carbon Dioxide 26.8 Anion Gap 6 BUN 10 Creatinine 0.89 Estimated GFR Greater than 89 POC Glucose 134 H 210 H Random Glucose 107 H Calcium 7.6 L Total Bilirubin 0.4 AST 34 ALT 19 Alkaline Phosphatase 78 Total Protein 7.6 Albumin 1.4 L Assessment and Plan - Assessment (1) Atherosclerosis of [place] arteries of extremities with gangrene, left leg Code(s): I70.262 - Atherosclerosis of [place] arteries of extremities with gangrene, left leg Status: Acute (2) Cellulitis of left leg Code(s): L03.116 - Cellulitis of left lower limb Status: Acute - Plan CT negative for OM and abscess Pending Vascular Dr Ferreira Recommended Betadine and DSD, change daily, LLE Discussed at risk for LE amputation. Will continue to follow.
[2018-10-21] MEDS ORDERED: PEG 3350/E-Lyte Soln 4000 ML Bottle PO ONE (16:00)
--- NOTE | 2018-10-21 17:36 | P.PNIM ---
Subjective Interval history: 62 yo diabetic m admitted w LLE cellulitis and gangrene, developed acute drop in hh s/p transfusion, had egd and going for colonoscopy tomorrow, podiatry and vascular workup in progress, pt seen and examined doing ok, denies nv, no sob, no cp no fever Physical Exam Vital signs: Last Vital Signs Temp 98.1 F 10/21/18 11:55 Pulse 102 H 10/21/18 11:55 Resp 14 10/21/18 11:55 BP 162/81 H 10/21/18 11:55 Pulse Ox 100 10/21/18 11:55 Intake & Output 10/19/18 10/20/18 10/21/18 10/22/18 06:59 06:59 06:59 06:59 Intake Total 1228 / 1228 1008 / 1008 712 / 712 104 / 104 Output Total 1200 / 1200 Balance 1228 / 1228 1008 / 1008 -488 / -488 104 / 104 Weight 73 kg 73 kg pleasant wdwn 62 yo aam aaox3 nad heart s1s2 reg lungs clear no wrr abd soft nondt pos bs ext left le edema, erythema and drainage, ischemic changes left plantar hallux and dorsollateral forefoot ulceration, decreased pulses Results Labs CBC & Chem 7: 10/21/18 06:19 10/21/18 06:19 Assessment and Plan (1) Atherosclerosis of [place] arteries of extremities with gangrene, left leg: Code(s): I70.262 - Atherosclerosis of [place] arteries of extremities with gangrene, left leg Status: Acute (2) Cellulitis of left leg: Code(s): L03.116 - Cellulitis of left lower limb Status: Acute Plan SEPSIS due to LLE cellulitis - bld cultures neg x2 from 10/14., wbc 21->10 CELLULITIS and diabetic foot wounds L FOOT w gangrene, -ct wo abscess or osteo -us neg for dvt -wound cx/gs neg x 72 hrs, day 2 clinda, defepime -podiatry following, vascular surgery consult done, high risk for amputation ANEMIA s/p transfusion no acute bleeding - hgb 7.9 , cont ppi, iron , hx of chronic anemia -egd 10/19/18 - esophageal varices, nml -ct abd pelvis neg -colonoscopy tomorrow ABDIEL prerenal azotemia due to sepsis - resoved cr 2/6-->0.89 DMII - uncontrolled, a1c 8.4 - cont iss, diet, hold metformin for now ADJUSTMENT DO w dpressed mixed anxiety and depressed mood - seen by psychiatry stable SEVERE PROTEIN VICKI MALNUTRITION alb 1.4 - nutrition consult, supplement CAD,PAD, [place] post CABG - cont meds DYSLIPIDEMIA CHF w EF 40% chronic stable DIABETIC RETINOPATHY vision impaired - fall precautions, doesnt drive dvt prophylaxis - sq heparin dispo - rehab pending clinical course Progress Note: Quality VTE Deep Vein Thrombosis/Pulmonary Embolism Present on Admission: No
[2018-10-21] MEDS ORDERED: Chlorhexidine Gluconate 2% 1 Pack (2 Cloths) TOPICAL ONE (18:53)
[2018-10-21] MEDS ORDERED: Metoprolol Tartrate 25 MG Tablet PO SCH (18:53)
[2018-10-21] MEDS ORDERED: Sodium Chlor 0.9% Inj 500 ML IV.SIG SCH (19:00)
--- NOTE | 2018-10-21 19:18 | MB ---
cc: Rachna Gentile MD DATE: 10/21/2018 CONSULTING PHYSICIAN: Dr. Rachna Gentile, vascular surgery. REASON FOR CONSULTATION: Gangrene of the left foot and hallux, diabetes mellitus, peripheral vascular disease. HISTORY OF PRESENT ILLNESS: This 62-year-old male who presents to the hospital several days ago with fever, chills, and drainage from the left foot. The patient was admitted and treated with IV antibiotics, seen by podiatry and now the question arises about the nature of his vasculature and possible implications from the vascular service. At the time of arrival, the patient had white count of 23,[address] of the left leg shows swelling and cellulitis, however, no gas. PAST SURGICAL HISTORY: Coronary artery bypass surgery and right first toe amputation. PAST MEDICAL HISTORY: Hypertension, diabetes mellitus, coronary artery disease, CHF with ejection fraction of 35% to 40%, hyperlipidemia, gastroesophageal reflux and portal hypertension with varices. MEDICATIONS: Can be found on the record. SOCIAL HISTORY: The patient states never drinks and smokes. He says he is not a smoker, but then again somewhere else he said he was a smoker, so I am not sure. The majority of this is obtained from the chart because the patient does not want to answer questions. PHYSICAL EXAMINATION: GENERAL: Reveals a 62-year-old male. HEENT: Normocephalic. No trauma to the head. Pupils equal, reactive. Extraocular muscles intact. NECK: Supple. Bilateral carotid pulses. Right-sided 3/6 bruit. CHEST: Bilateral breath sounds. HEART: Regular rate and rhythm. ABDOMEN: Soft. Active bowel sounds. No rebound. No masses. No hernias. EXTREMITIES: The patient has palpable femoral pulses and vessels are very firm and calcified, clearly palpable through the skin. Popliteal by Doppler on the left side, the patient has dressing, so I cannot detect the posterior tibial or dorsalis pedis. On the right side, the patient has weak posterior tibial and absent dorsalis pedis pulse by Doppler. 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 Foot on the left cannot be examined because it is dressed, but I see that the patient has gangrene of the left greater toe and also blisters over the back of the foot and I saw the pictures of it shown by Dr. Kirk. NEUROLOGIC: The patient is grossly intact; however, he has unusual affect. He is not saying much and does not want to answer the questions. IMPRESSION AND RECOMMENDATIONS: This patient has clearly peripheral vascular disease based on longstanding diabetes mellitus, hypertension, comorbidities with hyperlipidemia, poorly controlled. The patient at this point requires CTA with runoff to see what this looks like and whether there is any remedy. Based on my clinical exam this patient will probably not have any unreconstructable disease. Patients who have gangrene of the foot or toes are considered in a group with limb-threatening ischemia and 30% of those patients will lose extremity within a year, if not treated. We will continue to follow and advise as we go along and intervene as necessary. Thank you very much for the referral. MD CAROLINE Regan/seble/jodi , 05:30 PM , 05:39 PM CAMILA
--- NOTE | 2018-10-21 20:46 | CT ---
EXAM DATE: 10/21/2018 8:16 PM EST AGE/SEX: 62 years / Male INDICATIONS: Peripheral vascular disease. CLINICAL DATA: This is the patient's initial encounter. Patient reports that signs and symptoms have been present for 1 day and indicates a pain score of 5/10. MEDICAL/SURGICAL HISTORY: Diabetes. Peripheral vascular disease. Hypertension. CABG. right foot t oe amputation RADIATION DOSE: 3.45 CTDI (mGy) COMPARISON: . TECHNIQUE: Volumetric scanning was performed using a multi-row detector CT scanner during bolus infu fredy of 100 ml Omnipaque 350 (iohexol) nonionic water-soluble contrast as a single exam dose. The data was post processed with a variety of visualization algorithms including full volume maximum inte nsity projection, multi-planar sliding thin slab reformation, curved planar reformation, and surface rendering techniques. Using automated exposure control and adjustment of the mA and/or kV according to patient size, radiation dose was kept as low as reasonably achievable to obtain optimal diagnostic quality images. DICOM format image data is available electronically for review and comparison. FINDINGS: Abdominal Aorta: Abdominal aorta is normal diameter. There is atherosclerotic disease of the distal abdominal aorta with calcification. No significant narrowing. No evidence of aneurysmal dilatation. T he SMA, celiac, and WEN are widely patent. There are 2 left-sided renal arteries. Single right renal artery. The renal arteries are widely patent. Bifurcation: Normal. Right Pelvis: Right common iliac artery is widely patent. Right external iliac arteries widely paten t. There is calcified plaque the origin of the right internal iliac artery resulting in mild stenosis . Left Pelvis: The left common iliac artery and external iliac artery are widely patent. Diffuse ather osclerotic disease of the left internal iliac artery resulting in diffuse mild stenosis. Right Thigh: Diffuse calcification and atherosclerotic disease of the mid to distal superficial femo ral artery resulting in mild stenosis. No evidence of high-grade stenosis. Profundofemoral artery is widely patent. Left Thigh: Diffuse atherosclerotic disease and calcification of the mid to distal superficial femor al artery resulting in mild stenosis. No high-grade stenoses identified. Right Knee: Diffuse atherosclerotic disease of the popliteal artery. No evidence of high-grade steno sis. Left Knee: Diffuse atherosclerotic disease of the popliteal artery. No evidence of high-grade stenos is. Right Leg: There is diffuse atherosclerotic disease and calcification of the lower leg arteries. Pro ximal anterior tibial artery occlusion proximally peroneal and posterior tibial arteries are patent t o the foot. Left Leg: There is diffuse atherosclerotic disease and calcification of the lower leg arteries. Prox imal occlusion of the anterior tibial artery. The peroneal artery is patent to the foot. There is als o apparent proximal occlusion of the posterior tibial artery with diffuse atherosclerotic disease. Re constitution via collaterals is seen approximately 10 cm above the ankle. Liver, gallbladder, pancreas, spleen, adrenal glands, and kidneys are within normal limits. No eviden ce of bowel dilatation. No free air or free fluid. Appendix not identified. Urinary bladder and repro ductive organs within normal limits. Anterior abdominal wall intact. Retroperitoneum and inguinal reg ions unremarkable. CONCLUSION: 1. Diffuse atherosclerotic disease most prominent in the lower legs bilaterally. Proximal occlusion of the anterior tibial arteries bilaterally and of the posterior tibial artery on the left. Peroneal arteries patent to the foot bilaterally. Posterior tibial artery patent to the foot on the right. Rec onstitution of the posterior tibial artery on the left 10 cm above the ankle. 2. No evidence of high-grade arterial stenosis or occlusion in the thigh or popliteal regions. 3. Diffuse atherosclerotic disease of the internal iliac arteries. Abdominal aorta diameter within n ormal limits. Mesenteric arteries and renal arteries widely patent. Electronically signed by: Jose David Lai MD Board Certified Radiologist 10/21/2018 8:45 PM EST
[2018-10-21] MEDS: Metoprolol Tartrate 25 MG Tablet PO SCH (21:14)
[2018-10-22 08:21] LABS: Baso % (Auto) 0.2 % (0.0-2.0); Eos % (Auto) 0.4 % (0.0-4.0); Hematocrit 22.5 % (39.0-51.0); Hemoglobin 7.7 gm/dL (13.0-17.0); Lymph % (Auto) 10.2 % (9.0-44.0); Mean Corpuscular HGB Conc 34.1 % (32.0-36.0); Mean Corpuscular Hemoglobin 31.1 pg (27.0-34.0); Mean Corpuscular Volume 91.1 fL (80.0-100.0); Mean Platelet Volume 8.2 fL (7.0-11.0); Mono # (Auto) 0.5 th/mm3 (0.0-0.9); Mono % (Auto) 5.3 % (0.0-8.0); Neut # (Auto) 8.6 th/mm3 (1.8-7.7); Neut % (Auto) 83.9 % (16.0-70.0); Platelet Count 383 th/mm3 (150-450); Red Blood Count 2.47 mil/mm3 (4.50-5.90); White Blood Count 10.2 th/mm3 (4.0-11.0)
[2018-10-22] MEDS: Insulin NovoLOG Aspart Correctional Sugar Inj SQ SCH ×4 (08:32→21:15)
[2018-10-22] MEDS: Ferrous Sulfate 325 MG Tablet PO SCH (08:32)
[2018-10-22] MEDS: Senna/Docusate Sodium 8.6/50 MG Tablet PO SCH ×2 (08:33→21:09)
[2018-10-22] MEDS: Metoprolol Tartrate 25 MG Tablet PO SCH ×2 (08:33→21:09)
[2018-10-22 08:37] LABS: Anion Gap 6 meq/L (5-15); Blood Urea Nitrogen 7 mg/dL (7-18); Calcium 7.7 mg/dL (8.5-10.1); Carbon Dioxide 26.8 meq/L (21.0-32.0); Chloride 107 meq/L (98-107); Glomerular Filtration Rate Greater Than 89 mL/min (>89); Glucose,Random 105 mg/dL (74-106); Potassium 4.1 meq/L (3.5-5.1); Sodium 140 meq/L (136-145)
--- NOTE | 2018-10-22 11:01 | P.EN ---
Patient still drinking the bowel prep solution, no significant BM's, will add Dulcolax orally, encourage him to resume bowel prep today, clear liquid diet and reschedule him for tomorrow.
[2018-10-22] MEDS: Collagenase Oint 30 GM Tube TOPICAL SCH (15:00)
--- NOTE | 2018-10-22 16:36 | P.PNIM ---
Subjective Interval history: Patient reports he is feeling okay today. No new issues. Physical Exam Vital signs: Last Vital Signs Temp 98.9 F 10/22/18 15:15 Pulse 91 H 10/22/18 15:16 Resp 20 10/22/18 15:15 BP 133/81 10/22/18 15:15 Pulse Ox 99 10/22/18 15:15 Intake & Output 10/20/18 10/21/18 10/22/18 10/23/18 06:59 06:59 06:59 06:59 Intake Total 1008 / 1008 712 / 712 512 / 512 Output Total 1200 / 1200 Balance 1008 / 1008 -488 / -488 512 / 512 Weight 73 kg 73 kg 72.4 kg Narrative: GENERAL: Patient is a well-nourished, well-developed Lynda male patient, INAD. Awake and alert. CARDIOVASCULAR: Tachycardic. No murmur auscultated. RESPIRATORY: Clear to auscultation. Breath sounds equal bilaterally. No rales , wheezing or rhonchi. ABDOMEN: Soft, non-tender, nondistended. No guarding. Bowel sounds present and normoactive. EXTREMITIES: No clubbing, cyanosis. LLE dressing appear clean NEUROLOGICAL: Awake and alert. Normal speech. PSYCHIATRIC: Calm and cooperative. Results Labs CBC & Chem 7: 10/22/18 07:50 10/22/18 07:50 Imaging Imaging: Impressions Aorta w/Runoff CTA 10/21/18 14:52 CONCLUSION: 1. Diffuse atherosclerotic disease most prominent in the lower legs bilaterally. Proximal occlusion of the anterior tibial arteries bilaterally and of the posterior tibial artery on the left. Peroneal arteries patent to the foot bilaterally. Posterior tibial artery patent to the foot on the right. Reconstitution of the posterior tibial artery on the left 10 cm above the ankle. 2. No evidence of high-grade arterial stenosis or occlusion in the thigh or popliteal regions. 3. Diffuse atherosclerotic disease of the internal iliac arteries. Abdominal aorta diameter within normal limits. Mesenteric arteries and renal arteries widely patent. Assessment and Plan (1) Atherosclerosis of [place] arteries of extremities with gangrene, left leg: Code(s): I70.262 - Atherosclerosis of [place] arteries of extremities with gangrene, left leg Status: Acute (2) Cellulitis of left leg: Code(s): L03.116 - Cellulitis of left lower limb Status: Acute Plan 62-year-old male with: SEPSIS due to LLE cellulitis - bld cultures neg x2 from 10/14., wbc 21->10 CELLULITIS and diabetic foot wounds L FOOT w gangrene, -ct wo abscess or osteo -us neg for dvt -wound cx/gs neg x 72 hrs, day 2 clinda, defepime -podiatry following, vascular surgery consult done, high risk for amputation. CTA runoff noted. Further plan per vascular surgery. ANEMIA s/p transfusion no acute bleeding - hgb 7.9 , cont ppi, iron , hx of chronic anemia -egd 10/19/18 - esophageal varices, nml -ct abd pelvis neg -colonoscopy rescheduled for tomorrow. ABDIEL prerenal azotemia due to sepsis - resoved cr /-->0.89 DMII - uncontrolled, a1c 8.4 - cont iss, diet, hold metformin for now ADJUSTMENT DO w depressed mixed anxiety and depressed mood - seen by psychiatry stable SEVERE PROTEIN VICKI MALNUTRITION alb 1.4 - nutrition consult, supplement CAD,PAD, [place] post CABG - cont meds DYSLIPIDEMIA CHF w EF 40% chronic stable DIABETIC RETINOPATHY vision impaired - fall precautions, doesn't drive dvt prophylaxis - sq heparin dispo - rehab pending clinical course Progress Note: Quality VTE Deep Vein Thrombosis/Pulmonary Embolism Present on Admission: No
[2018-10-23 06:22] LABS: Mean Corpuscular HGB Conc 33.4 % (32.0-36.0); Mean Corpuscular Hemoglobin 30.6 pg (27.0-34.0); Mean Corpuscular Volume 91.7 fL (80.0-100.0); Mean Platelet Volume 8.1 fL (7.0-11.0); Platelet Count 353 th/mm3 (150-450); Red Blood Count 2.24 mil/mm3 (4.50-5.90); Red Cell Distribution Width 14.7 % (11.6-17.2); White Blood Count 11.5 th/mm3 (4.0-11.0)
[2018-10-23 06:35] LABS: Hematocrit 20.5 % (39.0-51.0); Hemoglobin 6.8 gm/dL (13.0-17.0)
[2018-10-23 06:46] LABS: Anion Gap 6 meq/L (5-15); Blood Urea Nitrogen 7 mg/dL (7-18); Calcium 7.5 mg/dL (8.5-10.1); Carbon Dioxide 24.1 meq/L (21.0-32.0); Chloride 111 meq/L (98-107); Glomerular Filtration Rate Greater Than 89 mL/min (>89); Glucose,Random 92 mg/dL (74-106); Potassium 3.4 meq/L (3.5-5.1); Sodium 141 meq/L (136-145)
[2018-10-23] MEDS ORDERED: Sodium Chlor 0.9% Inj 250 ML IV.SIG SCH (07:00)
[2018-10-23] MEDS: Insulin NovoLOG Aspart Correctional Sugar Inj SQ SCH ×4 (07:37→21:46)
[2018-10-23] MEDS: Metoprolol Tartrate 25 MG Tablet PO SCH ×2 (08:52→21:45)
[2018-10-23] MEDS: Ferrous Sulfate 325 MG Tablet PO SCH (08:52)
[2018-10-23] MEDS: Collagenase Oint 30 GM Tube TOPICAL SCH (08:53)
[2018-10-23] MEDS: Senna/Docusate Sodium 8.6/50 MG Tablet PO SCH ×2 (08:53→21:45)
--- NOTE | 2018-10-23 12:13 | GIPROC ---
[facility] [address] [facility]. [facility], [address] COLONOSCOPY PROCEDURE REPORT EXAM DATE: 10/23/2018 PATIENT NAME: Matt Ely MR #: [id number] BIRTHDATE: 1955 ENDOSCOPIST: Kristian Echeverria MD ORDER #: [id number] SHEETMETAL WORKER: Cindy Fontenot Jones, Julie, and Vivian Bazzi STATUS: inpatient INDICATIONS: The patient is a 62 yr old male here for a colonoscopy due to anemia, non-specific PROCEDURE PERFORMED: Colonoscopy, diagnostic MEDICATIONS: Per Anesthesia and None. PREP QUALITY: poor PREP TYPE:GoLytely ESTIMATED BLOOD LOSS: None CONSENT: The patient understands the risks and benefits of the procedure and understands that these risks include, but are not limited to: sedation, allergic reaction, infection, perforation and/or bleeding. Alternative means of evaluation and treatment include, among others: physical exam, x-rays, and/or surgical intervention. The patient elects to proceed with this endoscopic procedure. medical equipment was checked for proper function. Hand hygiene and appropriate measures for infection prevention was taken. After the risks, benefits and alternatives of the procedure were thoroughly explained, Informed consent was verified, confirmed and timeout was successfully executed by the treatment team. A digital exam revealed no abnormalities of the rectum The Pentax [id number] endoscope was introduced through the anus and advanced to the cecum, which was identified by both the appendix and ileocecal valve. The instrument was then slowly withdrawn as the colon was fully examined. COLON FINDINGS: A small amount of stool was present throughout the entire examined colon. Retroflexed views revealed no abnormalities The scope was then completely withdrawn from the patient and the procedure terminated. PROCEDURE WITHDRAWAL TIME:10minutes ADVERSE EVENTS: There were no complications. IMPRESSIONS: 1. Small amount of stool was present throughout the entire examined colon 2. Retroflexed views revealed no abnormalities RECOMMENDATIONS: Continue surveillance RECALL: Return 1 year Colonoscopy Kristian Echeverria MD eSigned: Kristian Echeverria MD 10/23/2018 12:13 PM cc:
--- NOTE | 2018-10-23 15:28 | P.PNIM ---
Subjective Interval history: Patient reports he is feeling okay today. Pain is controlled. Discussed with RN. Colonoscopy unremarkable. Physical Exam Vital signs: Last Vital Signs Temp 98.4 F 10/23/18 12:20 Pulse 87 10/23/18 12:29 Resp 16 10/23/18 12:20 BP 121/59 L 10/23/18 12:20 Pulse Ox 98 10/23/18 12:20 Intake & Output 10/21/18 10/22/18 10/23/18 10/24/18 06:59 06:59 06:59 06:59 Intake Total 712 / 712 512 / 512 512 / 512 100 / 100 Output Total 1200 / 1200 551 / 551 Balance -488 / -488 512 / 512 -39 / -39 100 / 100 Weight 73 kg 72.4 kg Narrative: GENERAL: Patient is a well-nourished, well-developed Lynda male patient, INAD. Awake and alert. CARDIOVASCULAR: Tachycardic. No murmur auscultated. RESPIRATORY: Clear to auscultation. Breath sounds equal bilaterally. No rales , wheezing or rhonchi. ABDOMEN: Soft, non-tender, nondistended. No guarding. Bowel sounds present and normoactive. EXTREMITIES: No clubbing, cyanosis. LLE wound examined today. Left distal whaley and posterior leg with friable skin and ulceration. Left dorsal foot ulcer with ulceration and friable skin. No significant drainage. NEUROLOGICAL: Awake and alert. Normal speech. PSYCHIATRIC: Calm and cooperative. Results Labs CBC & Chem 7: 10/23/18 04:39 10/23/18 04:39 Assessment and Plan (1) Atherosclerosis of [place] arteries of extremities with gangrene, left leg: Code(s): I70.262 - Atherosclerosis of [place] arteries of extremities with gangrene, left leg Status: Acute (2) Cellulitis of left leg: Code(s): L03.116 - Cellulitis of left lower limb Status: Acute Plan 62-year-old male with: SEPSIS due to LLE cellulitis - bld cultures neg x2 from 10/14., wbc 21->10 CELLULITIS and diabetic foot wounds L FOOT w gangrene, -ct wo abscess or osteo -us neg for dvt -wound cx/gs neg x 72 hrs, day 2 clinda, defepime -podiatry following, vascular surgery consult done, high risk for amputation. CTA runoff noted. Further plan per vascular surgery. ANEMIA s/p transfusion no acute bleeding - hgb 7.9 , cont ppi, iron , hx of chronic anemia -egd 10/19/18 - esophageal varices, nml -ct abd pelvis neg -colonoscopy rescheduled for tomorrow. ABDIEL prerenal azotemia due to sepsis - resolved cr 11/21-->0.89 DMII - uncontrolled, a1c 8.4 - cont iss, diet, hold metformin for now ADJUSTMENT DO w depressed mixed anxiety and depressed mood - seen by psychiatry stable SEVERE PROTEIN VICKI MALNUTRITION alb 1.4 - nutrition consult, supplement CAD,PAD, [place] post CABG - cont meds DYSLIPIDEMIA CHF w EF 40% chronic stable DIABETIC RETINOPATHY vision impaired - fall precautions, doesn't drive dvt prophylaxis - sq heparin dispo - rehab pending clinical course Progress Note: Quality VTE Deep Vein Thrombosis/Pulmonary Embolism Present on Admission: No
--- NOTE | 2018-10-23 16:40 | P.PNVS ---
Subjective Subjective/Hospital Course: Referral received. Spoke to Dr Kirk. Full consult TF Thanks J 10/23/2018 The patient has palpable femoral pulses and vessels are very firm and calcified , clearly palpable through the skin. Popliteal by Doppler on the left side, the patient has dressing, so I cannot detect the posterior tibial or dorsalis pedis. On the right side, the patient has weak posterior tibial and absent dorsalis pedis pulse by Doppler. 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 Foot on the left cannot be examined because it is dressed, but I see that the patient has gangrene of the left greater toe and also blisters over the back of the foot and I saw the pictures of it shown by Dr. Kirk. This patient has clearly peripheral vascular disease based on longstanding diabetes mellitus, hypertension, comorbidities with hyperlipidemia, poorly controlled. Based on my clinical exam this patient will probably not have any unreconstructable disease. Patients who have gangrene of the foot or toes are considered in a group with limb-threatening ischemia and 30% of those patients will lose extremity within a year, if not treated. We will continue to follow and advise as we go along and intervene as necessary. CTA confirms the findings. Patient has diffuse calcific atherosclerotic disease and no significant inflow stenosis. 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 This goes [id number] with clinical findings and therefore patient has no reconstructable disease in either leg Objective Vital Signs / I&O: Vital Signs 10/22/18 20:00 10/22/18 20:08 10/23/18 00:00 Temperature 98.2 F 98.8 F Pulse Rate 93 H 102 H 99 H Respiratory Rate 18 18 Blood Pressure 154/73 H 129/66 Pulse Oximetry 99 99 10/23/18 00:09 10/23/18 03:52 10/23/18 04:00 Temperature 98.4 F Pulse Rate 90 96 H 92 H Respiratory Rate 18 Blood Pressure 127/68 Pulse Oximetry 98 10/23/18 08:00 10/23/18 09:47 10/23/18 10:57 Temperature 98.2 F 98.2 F Pulse Rate 95 H 93 H 94 H Respiratory Rate 18 18 Blood Pressure 142/88 H 149/74 H Pulse Oximetry 100 100 10/23/18 11:20 10/23/18 12:20 10/23/18 12:29 Temperature 98.8 F 98.4 F Pulse Rate 86 92 H 87 Respiratory Rate 18 16 Blood Pressure 156/78 H 121/59 L Pulse Oximetry 100 98 10/23/18 15:54 Temperature 98.0 F Pulse Rate 94 H Respiratory Rate 20 Blood Pressure 154/75 H Pulse Oximetry 99 Intake & Output 10/22/18 10/23/18 10/23/18 18:59 06:59 18:59 Intake Total 308 / 308 204 / 204 100 / 100 Output Total 550 / 550 Balance -242 / -242 / 100 / 100 Intake: IV 308 / 308 204 / 204 Maxipime Inj 1,000 MG In NS Inj 100 / 100 100 / 100 100 ML @ 200 mls/hr IV.SIG Q12H JIMMY Rx#:[id number] Cleocin Inj 600 MG In NS Inj 208 / 208 104 / 104 100 ML @ 200 mls/hr IV.SIG Q8H JIMMY Rx#:[id number] Anesthesia Amount 100 / 100 Intake (Blood Product) Amt 0 / 0 Rbc As-3 Leukoreduced Unit 0 / 0 [id number] Output: Urine 550 / 550 Urine/Stool Mix Other: # Voids 2 Date of Last Bowel Movement 10/22/18 # Bowel Movements 2 Laboratory Results - last 24 hr 10/22/18 10/22/18 10/23/18 17:25 21:07 04:39 WBC 11.5 H RBC 2.24 L Hgb 6.8 L* Hct 20.5 L* MCV 91.7 MCH 30.6 MCHC 33.4 RDW 14.7 Plt Count 353 MPV 8.1 Sodium Potassium Chloride Carbon Dioxide Anion Gap BUN Creatinine Estimated GFR POC Glucose 178 H 234 H Random Glucose Calcium Blood Type Antibody Screen MTS Gel Crossmatch 10/23/18 10/23/18 10/23/18 04:39 07:37 08:58 WBC RBC Hgb Hct MCV MCH MCHC RDW Plt Count MPV Sodium 141 Potassium 3.4 L Chloride 111 H Carbon Dioxide 24.1 Anion Gap 6 BUN 7 Creatinine 0.79 Estimated GFR Greater than 89 POC Glucose 113 H Random Glucose 92 Calcium 7.5 L Blood Type B Positive Antibody Screen Negative MTS Gel Crossmatch See Detail 10/23/18 11:19 WBC RBC Hgb Hct MCV MCH MCHC RDW Plt Count MPV Sodium Potassium Chloride Carbon Dioxide Anion Gap BUN Creatinine Estimated GFR POC Glucose 132 H Random Glucose Calcium Blood Type Antibody Screen MTS Gel Crossmatch Impressions Aorta w/Runoff CTA 10/21/18 14:52 CONCLUSION: 1. Diffuse atherosclerotic disease most prominent in the lower legs bilaterally. Proximal occlusion of the anterior tibial arteries bilaterally and of the posterior tibial artery on the left. Peroneal arteries patent to the foot bilaterally. Posterior tibial artery patent to the foot on the right. Reconstitution of the posterior tibial artery on the left 10 cm above the ankle. 2. No evidence of high-grade arterial stenosis or occlusion in the thigh or popliteal regions. 3. Diffuse atherosclerotic disease of the internal iliac arteries. Abdominal aorta diameter within normal limits. Mesenteric arteries and renal arteries widely patent.
[2018-10-24 07:47] LABS: Hematocrit 26.2 % (39.0-51.0); Hemoglobin 8.7 gm/dL (13.0-17.0)
[2018-10-24] MEDS: Metoprolol Tartrate 25 MG Tablet PO SCH ×2 (09:40→21:24)
[2018-10-24] MEDS: Ferrous Sulfate 325 MG Tablet PO SCH (09:40)
[2018-10-24] MEDS: Senna/Docusate Sodium 8.6/50 MG Tablet PO SCH ×2 (09:42→21:23)
[2018-10-24] MEDS: Insulin NovoLOG Aspart Correctional Sugar Inj SQ SCH ×4 (09:42→21:25)
[2018-10-24] MEDS: Collagenase Oint 30 GM Tube TOPICAL SCH (09:43)
--- NOTE | 2018-10-24 12:39 | P.PNID ---
Subjective Remarks: Patient is a 62-year-old male, presented to the hospital complaining of swelling and pain in his left lower extremity. He could not really tell me how long it has been there. He denies any trauma, denies any previous episode of cellulitis in the left lower extremity. He denies any fever chills or sweats. But since his been here he had been febrile up to 101+. He denies any sore throat or any respiratory complaint. Denies any nausea or vomiting, GI or any urinary complaints. On presentation his WBC was 23,000. His creatinine was up to 2.06. CT of the left lower extremity did not show any abscess, osteophyte just significant swelling compatible with cellulitis. He is on cefepime and vancomycin Infectious disease consultation has been requested to assist with evaluation and treatment of his cellulitis. Notes reviewed Temps normal No new complaints Received 2 units PRBC for Hgb6 WBC slightly up Wound C/S negative WBC down to normal Creatinine normal Antibiotics: Cefepime Clindamycin Past Medical History: Past HX: hypertension, diabetes mellitus, coronary artery disease, CHF (last EF of 40% in 08/01) peripheral arterial disease, hyperlipidemia, depression, GERD and osteoarthritis Past Surgical History: CABG Right first toe amputation Left arm I&D for MRSA Allergies/Adverse Reactions: Allergies No Known Allergies Allergy (Verified 10/14/18 22:12) Objective Vital Signs 10/23/18 15:54 10/23/18 20:23 10/24/18 01:04 Temperature 98.0 F 98.0 F 98.2 F Pulse Rate 94 H 119 H 86 Respiratory Rate 20 20 20 Blood Pressure 154/75 H 115/59 L 135/75 Pulse Oximetry 99 98 100 10/24/18 04:44 10/24/18 08:00 10/24/18 11:38 Temperature 98.6 F 98.1 F 98.4 F Pulse Rate 86 83 99 H Respiratory Rate 20 20 20 Blood Pressure 137/70 145/72 H 131/63 Pulse Oximetry 99 96 99 Intake & Output 10/23/18 10/24/18 10/24/18 18:59 06:59 18:59 Intake Total 600 / 600 558 / 558 Output Total 650 / 650 800 / 800 Balance -50 / -50 -242 / -242 Weight 72.4 kg Intake: IV 100 / 100 558 / 558 Maxipime Inj 1,000 MG In NS Inj 100 / 100 100 / 100 100 ML @ 200 mls/hr IV.SIG Q12H JIMMY Rx#:[id number] Cleocin Inj 600 MG In NS Inj 208 / 208 100 ML @ 200 mls/hr IV.SIG Q8H JIMMY Rx#:[id number] NS Inj 250 ML @ 15 mls/hr IV. 250 / 250 SIG ONCE JIMMY Rx#:[id number] Anesthesia Amount 100 / 100 Intake (Blood Product) Amt 400 / 400 Rbc As-3 Leukoreduced Unit 400 / 400 [id number] Output: Urine 650 / 650 800 / 800 Other: Date of Last Bowel Movement 10/23/18 10/23/18 Lab - Hematology Results 10/23/18 10/24/18 04:39 05:52 WBC 11.5 H RBC 2.24 L Hgb 6.8 L* 8.7 L Hct 20.5 L* 26.2 L MCV 91.7 MCH 30.6 MCHC 33.4 RDW 14.7 Plt Count 353 MPV 8.1 Lab - Chemistry Results 10/22/18 10/22/18 10/23/18 17:25 21:07 04:39 Sodium 141 Potassium 3.4 L Chloride 111 H Carbon Dioxide 24.1 Anion Gap 6 BUN 7 Creatinine 0.79 Estimated GFR Greater than 89 POC Glucose 178 H 234 H Random Glucose 92 Calcium 7.5 L 10/23/18 10/23/18 10/23/18 07:37 11:19 17:14 Sodium Potassium Chloride Carbon Dioxide Anion Gap BUN Creatinine Estimated GFR POC Glucose 113 H 132 H 102 Random Glucose Calcium 10/23/18 10/24/18 10/24/18 21:28 08:45 11:52 Sodium Potassium Chloride Carbon Dioxide Anion Gap BUN Creatinine Estimated GFR POC Glucose 278 H 106 190 H Random Glucose Calcium Imaging: ITS Impressions Lower Extremity CT 10/15/18 00:00 CONCLUSION: 1. Cellulitis without abscess or osteomyelitis. Venous Doppler Study 10/15/18 00:00 CONCLUSION: 1. No sonographic evidence for left lower extremity DVT. Abdomen/Pelvis CT 10/16/18 00:00 CONCLUSION: 1. No acute findings within the abdomen. Trace free fluid in the pelvis of unknown etiology. Aorta w/Runoff CTA 10/21/18 14:52 CONCLUSION: 1. Diffuse atherosclerotic disease most prominent in the lower legs bilaterally. Proximal occlusion of the anterior tibial arteries bilaterally and of the posterior tibial artery on the left. Peroneal arteries patent to the foot bilaterally. Posterior tibial artery patent to the foot on the right. Reconstitution of the posterior tibial artery on the left 10 cm above the ankle. 2. No evidence of high-grade arterial stenosis or occlusion in the thigh or popliteal regions. 3. Diffuse atherosclerotic disease of the internal iliac arteries. Abdominal aorta diameter within normal limits. Mesenteric arteries and renal arteries widely patent. Physical Exam: GENERAL: awake and alert, not in respiratory distress. SKIN: Warm and dry. No generalized rash, EYES: Pale conjunctiva. No petechia or hemorrhage. No scleral icterus. No injection or drainage. EARS, NOSE AND THROAT: Mucous membranes pink and moist. No oral lesions noted. No exudate. No oral thrush. NECK: Trachea midline. Supple and not tender, no meningeal signs CARDIOVASCULAR: Regular rate and rhythm. No murmurs, rubs or gallops heard RESPIRATORY: Clear to auscultation. Breath sounds equal bilaterally. No rales , wheezing or rhonchi ABDOMEN: Soft, non-tender, nondistended. Bowel sounds present and normoactive. No guarding. No rebound. No organomegaly. EXTREMITIES: No clubbing, cyanosis. LLE with improving edema, redness gone. Has dry wound back of L leg, open wound with slough and some necrosis on anterior L ankle and dorsum of L foot, no odor. NEUROLOGICAL: Non-focal. PSYCHIATRIC: calm and cooperative. LINE: No evidence of infection Assessment and Plan - Plan Impression Sepsis due to LLE cellulitis Cellulitis LLE, resolved Open wounds LLE PVD Leukocytosis, slightly up Renal insufficiency, better Known DM Anemia Recommendation Change cefepime to Levaquin Continue Clindamycin Wound care Being eval by vascular Monitor progress
--- NOTE | 2018-10-24 14:39 | P.PNGI ---
Subjective Interval history: Patient sitting up at bedside eating lunch meal Denies abdominal pain nausea vomiting or any noted bleeding Post colonoscopy <TeoDariana - Last Filed: 10/24/18 14:33> Physical Exam Vital signs: Vital Signs 10/23/18 15:54 10/23/18 20:23 10/24/18 01:04 Temperature 98.0 F 98.0 F 98.2 F Pulse Rate 94 H 119 H 86 Respiratory Rate 20 20 20 Blood Pressure 154/75 H 115/59 L 135/75 Pulse Oximetry 99 98 100 10/24/18 04:44 10/24/18 08:00 10/24/18 11:38 Temperature 98.6 F 98.1 F 98.4 F Pulse Rate 86 83 99 H Respiratory Rate 20 20 20 Blood Pressure 137/70 145/72 H 131/63 Pulse Oximetry 99 96 99 10/24/18 12:00 Temperature Pulse Rate 68 Respiratory Rate Blood Pressure Pulse Oximetry Intake & Output 10/23/18 10/24/18 10/24/18 18:59 06:59 18:59 Intake Total 600 / 600 558 / 558 104 / 104 Output Total 650 / 650 800 / 800 Balance -50 / -50 -242 / -242 104 / 104 Weight 72.4 kg Intake: IV 100 / 100 558 / 558 104 / 104 Maxipime Inj 1,000 MG In NS Inj 100 / 100 100 / 100 100 ML @ 200 mls/hr IV.SIG Q12H [facility] Rx#:[id number] Cleocin Inj 600 MG In NS Inj 208 / 208 104 / 104 100 ML @ 200 mls/hr IV.SIG Q8H [facility] Rx#:[id number] NS Inj 250 ML @ 15 mls/hr IV. 250 / 250 SIG ONCE [facility] Rx#:[id number] Anesthesia Amount 100 / 100 Intake (Blood Product) Amt 400 / 400 Rbc As-3 Leukoreduced Unit 400 / 400 [id number] Output: Urine 650 / 650 800 / 800 Other: Date of Last Bowel Movement 10/23/18 10/23/18 - Constitutional no acute distress, chronically ill appearing - Routine HEENT Exam Head: Present: normocephalic ENT: Present: mucous membranes moist - Routine Neck Exam Present: supple - Routine Respiratory Exam Present: CTA bilaterally. Absent: rales - Routine Cardiovascular Exam Present: RRR, S1, S2. Absent: tachycardia - Routine Abdominal Exam Present: soft, normoactive bowel sounds. Absent: distended - Routine Extremities Exam Comments: Left foot ulcer with ulceration Left whaley with ulceration - Routine Skin Exam Present: dry, warm - Routine Neurological Exam Present: alert - Routine Psychiatric Exam Present: normal affect, cooperative <Dariana Bruce - Last Filed: 10/24/18 14:33> Vital signs: Vital Signs 10/24/18 15:50 10/24/18 21:02 10/25/18 01:22 Temperature 98.5 F 98.4 F 99.1 F Pulse Rate 92 H 109 H 92 H Respiratory Rate 20 18 20 Blood Pressure 166/83 H 128/63 137/71 Pulse Oximetry 99 100 100 10/25/18 04:20 10/25/18 07:25 10/25/18 08:29 Temperature 98.9 F 98.7 F Pulse Rate 95 H 100 H 105 H Respiratory Rate 20 20 Blood Pressure 140/73 148/75 H Pulse Oximetry 98 96 10/25/18 12:00 Temperature 98.6 F Pulse Rate 105 H Respiratory Rate 20 Blood Pressure 153/79 H Pulse Oximetry 99 Intake & Output 10/24/18 10/25/18 10/25/18 18:59 06:59 18:59 Intake Total 104 / 104 208 / 208 Output Total 300 / 300 Balance 104 / 104 -92 / -92 Weight 72.4 kg Intake: IV 104 / 104 208 / 208 Cleocin Inj 600 MG In NS Inj 104 / 104 208 / 208 100 ML @ 200 mls/hr IV.SIG Q8H [facility] Rx#:[id number] Output: Urine 300 / 300 Other: # Voids 2 Date of Last Bowel Movement 10/23/18 10/23/18 # Bowel Movements 1 <Kristian Echeverria - Last Filed: 10/25/18 14:32> Results - Labs CBC & Chem 7: 10/24/18 05:52 10/23/18 04:39 Laboratory Results - last 24 hr 10/23/18 10/23/18 10/23/18 08:58 17:14 21:28 Hgb Hct POC Glucose 102 278 H MTS Gel Crossmatch See Detail 10/24/18 10/24/18 10/24/18 05:52 08:45 11:52 Hgb 8.7 L Hct 26.2 L POC Glucose 106 190 H MTS Gel Crossmatch <Dariana Bruce - Last Filed: 10/24/18 14:33> - Labs CBC & Chem 7: 10/25/18 04:52 10/25/18 04:52 Laboratory Results - last 24 hr 10/24/18 10/24/18 10/25/18 18:10 20:42 04:52 WBC 12.3 H RBC 2.60 L Hgb 8.1 L Hct 23.6 L MCV 90.8 MCH 31.1 MCHC 34.3 RDW 14.5 Plt Count 364 MPV 7.9 Sodium Potassium Chloride Carbon Dioxide Anion Gap BUN Creatinine Estimated GFR POC Glucose 214 H 251 H Random Glucose Calcium 10/25/18 10/25/18 10/25/18 04:52 08:01 12:53 WBC RBC Hgb Hct MCV MCH MCHC RDW Plt Count MPV Sodium 141 Potassium 3.4 L Chloride 109 H Carbon Dioxide 25.4 Anion Gap 7 BUN 10 Creatinine 0.83 Estimated GFR Greater than 89 POC Glucose 132 H 236 H Random Glucose 125 H Calcium 7.6 L <Kristian Echeverria A - Last Filed: 10/25/18 14:32> Assessment and Plan - Plan Assessment Anemiapatient denies any obvious source of bleeding including hematochezia, melena, hematemesis and coffee-ground emesis. Patient denies taking any NSAIDs, blood thinners. He denies any alcohol use or nicotine use. hgb today is 7.9 declining S/P EGD on 10/19/18 1. The esophagus appeared normal mucosa, dilated esophageal veins suggestive of possible early varices. 2. Small hiatal hernia 3. The mucosa of the stomach appeared normal 4. Normal duodenal mucosa in the duodenal bulb and 2nd part duodenum 5. Retroflexion was performed and was normal Unintentional weight losspatient reports 20 pound weight loss over the past 4- 5 months, he is unsure the etiology. CT abdomen/pelvis WO IV contrast (10/16/18) no acute findings within the abdomen. Trace free fluid in the pelvis of unknown etiology. Cellulitisper primary team-patient has been febrile 10/24/2018 Patient denies any noted bleeding. Bedside nurse offers no report of hematochezia or melena. Patient denies abdominal pain nausea vomiting. Hemoglobin 8.7 hematocrit 26.2 10/23/2018 Colonoscopy unremarkable with the following findings: 1. Small amount of stool was present throughout the entire examined colon 2. Retroflexed views revealed no abnormalities Plan Diabetic diet Monitor hemoglobin and hematocrit Monitor for bleeding Recommendation to repeat colonoscopy in 1 year Supportive care Patient stable from GI standpoint; will sign off at this time, please notify for any further assistance needed This patient has been seen by myself and Dr. Echeverria and this note is written on his behalf - Attending Attestation Dr. Echeverria <Dariana Bruce - Last Filed: 10/24/18 14:33> - Attending Attestation As above, please notify us if needed again. <Kristian Echeverria - Last Filed: 10/25/18 14:32>
--- NOTE | 2018-10-24 15:23 | P.PNVS ---
Subjective Subjective/Hospital Course: Referral received. Spoke to Dr Kirk. Full consult TF Thanks J 10/23/2018 The patient has palpable femoral pulses and vessels are very firm and calcified , clearly palpable through the skin. Popliteal by Doppler on the left side, the patient has dressing, so I cannot detect the posterior tibial or dorsalis pedis. On the right side, the patient has weak posterior tibial and absent dorsalis pedis pulse by Doppler. 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 Foot on the left cannot be examined because it is dressed, but I see that the patient has gangrene of the left greater toe and also blisters over the back of the foot and I saw the pictures of it shown by Dr. Kirk. This patient has clearly peripheral vascular disease based on longstanding diabetes mellitus, hypertension, comorbidities with hyperlipidemia, poorly controlled. Based on my clinical exam this patient will probably not have any unreconstructable disease. Patients who have gangrene of the foot or toes are considered in a group with limb-threatening ischemia and 30% of those patients will lose extremity within a year, if not treated. We will continue to follow and advise as we go along and intervene as necessary. CTA confirms the findings. Patient has diffuse calcific atherosclerotic disease and no significant inflow stenosis. 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 This goes [id number] with clinical findings and therefore patient has no reconstructable disease in either leg 10/24/2018 Patient with no unreconstructable left leg peripheral vascular disease and gangrene of the distal foot I discussed this with Dr. Baldwin and we both agreed that salvageability of the foot is not an option This patient would most benefit from left below-knee amputation for this will get him back to functional status and activities In contrary situation patient will end up laying in bed, progressively decline and end up with decubiti, pneumonia and all other sequela of decreased activity Will discuss with patient at length and recommend BKA this week Objective Vital Signs / I&O: Vital Signs 10/23/18 15:54 10/23/18 20:23 10/24/18 01:04 Temperature 98.0 F 98.0 F 98.2 F Pulse Rate 94 H 119 H 86 Respiratory Rate 20 20 20 Blood Pressure 154/75 H 115/59 L 135/75 Pulse Oximetry 99 98 100 10/24/18 04:44 10/24/18 08:00 10/24/18 11:38 Temperature 98.6 F 98.1 F 98.4 F Pulse Rate 86 83 99 H Respiratory Rate 20 20 20 Blood Pressure 137/70 145/72 H 131/63 Pulse Oximetry 99 96 99 10/24/18 12:00 Temperature Pulse Rate 68 Respiratory Rate Blood Pressure Pulse Oximetry Intake & Output 10/23/18 10/24/18 10/24/18 18:59 06:59 18:59 Intake Total 600 / 600 558 / 558 104 / 104 Output Total 650 / 650 800 / 800 Balance -50 / -50 -242 / -242 104 / 104 Weight 72.4 kg Intake: IV 100 / 100 558 / 558 104 / 104 Maxipime Inj 1,000 MG In NS Inj 100 / 100 100 / 100 100 ML @ 200 mls/hr IV.SIG Q12H [facility] Rx#:[id number] Cleocin Inj 600 MG In NS Inj 208 / 208 104 / 104 100 ML @ 200 mls/hr IV.SIG Q8H [facility] Rx#:[id number] NS Inj 250 ML @ 15 mls/hr IV. 250 / 250 SIG ONCE [facility] Rx#:[id number] Anesthesia Amount 100 / 100 Intake (Blood Product) Amt 400 / 400 Rbc As-3 Leukoreduced Unit 400 / 400 [id number] Output: Urine 650 / 650 800 / 800 Other: Date of Last Bowel Movement 10/23/18 10/23/18 Laboratory Results - last 24 hr 10/23/18 10/23/18 10/23/18 08:58 17:14 21:28 Hgb Hct POC Glucose 102 278 H MTS Gel Crossmatch See Detail 10/24/18 10/24/18 10/24/18 05:52 08:45 11:52 Hgb 8.7 L Hct 26.2 L POC Glucose 106 190 H MTS Gel Crossmatch
--- NOTE | 2018-10-24 16:14 | P.PNIM ---
Subjective Interval history: Patient reports he is feeling okay today. Pain is controlled. Afebrile. Physical Exam Vital signs: Vital Signs 10/23/18 20:23 10/24/18 01:04 10/24/18 04:44 Temperature 98.0 F 98.2 F 98.6 F Pulse Rate 119 H 86 86 Respiratory Rate 20 20 20 Blood Pressure 115/59 L 135/75 137/70 Pulse Oximetry 98 100 99 10/24/18 08:00 10/24/18 11:38 10/24/18 12:00 Temperature 98.1 F 98.4 F Pulse Rate 83 99 H 68 Respiratory Rate 20 20 Blood Pressure 145/72 H 131/63 Pulse Oximetry 96 99 10/24/18 15:50 Temperature 98.5 F Pulse Rate 92 H Respiratory Rate 20 Blood Pressure 166/83 H Pulse Oximetry 99 Intake & Output 10/23/18 10/24/18 10/24/18 18:59 06:59 18:59 Intake Total 600 / 600 558 / 558 104 / 104 Output Total 650 / 650 800 / 800 Balance -50 / -50 -242 / -242 104 / 104 Weight 72.4 kg Intake: IV 100 / 100 558 / 558 104 / 104 Maxipime Inj 1,000 MG In NS Inj 100 / 100 100 / 100 100 ML @ 200 mls/hr IV.SIG Q12H [facility] Rx#:[id number] Cleocin Inj 600 MG In NS Inj 208 / 208 104 / 104 100 ML @ 200 mls/hr IV.SIG Q8H [facility] Rx#:[id number] NS Inj 250 ML @ 15 mls/hr IV. 250 / 250 SIG ONCE [facility] Rx#:[id number] Anesthesia Amount 100 / 100 Intake (Blood Product) Amt 400 / 400 Rbc As-3 Leukoreduced Unit 400 / 400 [id number] Output: Urine 650 / 650 800 / 800 Other: Date of Last Bowel Movement 10/23/18 10/23/18 Narrative: GENERAL: No acute distress. CARDIOVASCULAR: Normal rate and regular rhythm. No murmur auscultated. RESPIRATORY: Clear to auscultation. Breath sounds equal bilaterally. No rales , wheezing or rhonchi. ABDOMEN: Soft, non-tender, nondistended. No guarding. Bowel sounds present and normoactive. EXTREMITIES: No clubbing, cyanosis. LLE wrapped. No significant drainage. NEUROLOGICAL: Awake and alert. Normal speech. PSYCHIATRIC: Calm and cooperative. Results Labs CBC & Chem 7: 10/24/18 05:52 10/23/18 04:39 Assessment and Plan Plan 62-year-old male with: SEPSIS due to LLE cellulitis - bld cultures neg x2 from 10/14., wbc 21->10 CELLULITIS and diabetic foot wounds L FOOT w gangrene, -ct wo abscess or osteo -us neg for dvt -wound cx/gs neg x 72 hrs, day 2 clinda, defepime -podiatry following, vascular surgery following. CTA runoff showed diffuse disease. Vascular surgery recommending BKA. ANEMIA s/p transfusion no acute bleeding - hgb 7.9 , cont ppi, iron , hx of chronic anemia. Repeat transfusion on 10/23/18. H&H stable today. -egd 10/19/18 - esophageal varices, nml -ct abd pelvis neg -Unremarkable colonoscopy. ABDIEL prerenal azotemia due to sepsis - resolved cr 2/6-->0.89 DMII - uncontrolled, a1c 8.4 - cont iss, diet, hold metformin for now ADJUSTMENT DO w depressed mixed anxiety and depressed mood - seen by psychiatry stable SEVERE PROTEIN VICKI MALNUTRITION alb 1.4 - nutrition consult, supplement CAD,PAD, ND post CABG - cont meds DYSLIPIDEMIA CHF w EF 40% chronic stable DIABETIC RETINOPATHY vision impaired - fall precautions, doesn't drive dvt prophylaxis - sq heparin Dispo - Pending final plans from surgical team. Will likely need rehab. Progress Note: Quality VTE Deep Vein Thrombosis/Pulmonary Embolism Present on Admission: No
--- NOTE | 2018-10-24 22:28 | P.PNPOD ---
Subjective Interval history: Left leg gangrene and PVD Physical Exam Vital signs: Vital Signs 10/24/18 01:04 10/24/18 04:44 10/24/18 08:00 Temperature 98.2 F 98.6 F 98.1 F Pulse Rate 86 86 83 Respiratory Rate 20 20 20 Blood Pressure 135/75 137/70 145/72 H Pulse Oximetry 100 99 96 10/24/18 11:38 10/24/18 12:00 10/24/18 15:50 Temperature 98.4 F 98.5 F Pulse Rate 99 H 68 92 H Respiratory Rate 20 20 Blood Pressure 131/63 166/83 H Pulse Oximetry 99 99 10/24/18 21:02 Temperature 98.4 F Pulse Rate 109 H Respiratory Rate 18 Blood Pressure 128/63 Pulse Oximetry 100 Intake & Output 10/24/18 10/24/18 10/25/18 06:59 18:59 06:59 Intake Total 558 / 558 104 / 104 104 / 104 Output Total 800 / 800 Balance -242 / -242 104 / 104 104 / 104 Weight 72.4 kg Intake: IV 558 / 558 104 / 104 104 / 104 Maxipime Inj 1,000 MG In NS Inj 100 / 100 100 ML @ 200 mls/hr IV.SIG Q12H [facility] Rx#:[id number] Cleocin Inj 600 MG In NS Inj 208 / 208 104 / 104 104 / 104 100 ML @ 200 mls/hr IV.SIG Q8H [facility] Rx#:[id number] NS Inj 250 ML @ 15 mls/hr IV. 250 / 250 SIG ONCE [facility] Rx#:[id number] Output: Urine 800 / 800 Other: Date of Last Bowel Movement 10/23/18 10/23/18 Narrative: LLE NOn palpable pulses. larger dorsal midfoot and anterior ankle bulla. Ischemic. Multiple ulcers. ischemic fore foot. Medications and Allergies Active Medications: Active Medications Acetaminophen (Tylenol) 650 mg PO Q4H PRN PRN Reason: Temp > 100.4 Last Admin: 10/16/18 00:14 Dose: 650 mg Acetaminophen (Tylenol) 650 mg PO Q4H PRN PRN Reason: SEE LABEL COMMENTS Al Hydroxide/Mg Hydroxide (Milk Of Magnesia Liq) 30 ml PO Q12H PRN PRN Reason: Mild Constipation Atorvastatin Calcium (Lipitor) [address] [facility] Last Admin: 10/24/18 21:24 Dose: 40 mg Bisacodyl (Dulcolax Supp) 10 mg RECTAL DAILY PRN PRN Reason: SEVERE CONSITIPATION Clonazepam (Klonopin) 0.5 mg PO Q8H PRN PRN Reason: ANXIETY Collagenase (Santyl Oint) 1 applicatio TOPICAL DAILY [facility] Last Admin: 10/24/18 09:43 Dose: Not Given Dextrose (D50w Vial) 50 ml IV.PUSH UNSCH PRN PRN Reason: PER HYPOGLYCEMIA PROTOCOL Diphenhydramine HCl (Benadryl) 25 mg PO Q4H PRN PRN Reason: SEE LABEL COMMENTS Last Admin: 10/16/18 17:43 Dose: 25 mg Ferrous Sulfate (Ferosul) 325 mg PO DAILY [facility] Last Admin: 10/24/18 09:40 Dose: 325 mg Glucagon (Glucagon Inj) 1 mg OTHER PRN PRN PRN Reason: for Hypoglycemia Protocol Heparin Sodium (Porcine) (Heparin Inj) 5,000 units SQ Q12H [facility] Last Admin: 10/21/18 20:11 Dose: Not Given Sodium Chloride (Ns Inj) 500 mls @ 30 mls/hr IV.SIG .Q10H [facility] Last Admin: 10/20/18 18:01 Dose: Not Given Clindamycin Phosphate 600 mg/ (Sodium Chloride) 104 mls @ 200 mls/hr IV.SIG Q8H [facility] Last Infusion: 10/24/18 21:26 Dose: Infused Insulin Aspart (Novolog Insulin Correctional Sugar Inj) 0 unit SQ ACHS [facility]; Protocol Last Admin: 10/24/18 21:25 Dose: 5 unit Lactulose (Lactulose Liq) 30 ml PO DAILY PRN PRN Reason: SEVERE CONSITIPATION Levofloxacin (Levaquin) 750 mg PO DAILY [facility] Metoprolol Tartrate (Lopressor) 25 mg PO BID [facility] Last Admin: 10/24/18 21:24 Dose: 25 mg Ondansetron HCl (Zofran Inj) 4 mg IV.PUSH Q6H PRN PRN Reason: NAUSEA OR VOMITING Last Admin: 10/20/18 11:04 Dose: 4 mg Senna/Docusate Sodium (Pema-Colace) 1 tab PO BID [facility] Last Admin: 10/24/18 21:23 Dose: Not Given Sennosides (Senokot) 17.2 mg PO Q12H PRN PRN Reason: Moderate Constipation Sodium Chloride (Ns Flush) 2 ml IV.FLUSH PRN PRN PRN Reason: FLUSH AFTER USING IV ACCESS Last Admin: 10/20/18 11:05 Dose: 2 ml Sodium Chloride (Ns Flush) 2 ml IV.FLUSH BID [facility] Last Admin: 10/24/18 21:25 Dose: 2 ml Allergies Allergy/AdvReac Type Severity Reaction Status Date / Time No Known Allergies Allergy Verified 10/14/18 22:12 Home Medications Medication Instructions Recorded Confirmed Type metformin 500 mg PO BID 10/14/18 10/14/18 History Results - Labs CBC & Chem 7: 10/24/18 05:52 10/23/18 04:39 Laboratory Results - last 24 hr 10/23/18 10/24/18 10/24/18 08:58 05:52 08:45 Hgb 8.7 L Hct 26.2 L POC Glucose 106 MTS Gel Crossmatch See Detail 10/24/18 10/24/18 10/24/18 11:52 18:10 20:42 Hgb Hct POC Glucose 190 H 214 H 251 H MTS Gel Crossmatch Assessment and Plan - Assessment (1) Atherosclerosis of [place] arteries of extremities with gangrene, left leg Code(s): I70.262 - Atherosclerosis of [place] arteries of extremities with gangrene, left leg Status: Acute (2) Cellulitis of left leg Code(s): L03.116 - Cellulitis of left lower limb Status: Acute - Plan CT negative for OM and abscess Non reconstructible vessels per Vascular Dr Ferreira Recommended Left BKA, discussed with the patient and Vascular Surgery.
[2018-10-25 06:47] LABS: Anion Gap 7 meq/L (5-15); Blood Urea Nitrogen 10 mg/dL (7-18); Calcium 7.6 mg/dL (8.5-10.1); Carbon Dioxide 25.4 meq/L (21.0-32.0); Chloride 109 meq/L (98-107); Glomerular Filtration Rate Greater Than 89 mL/min (>89); Glucose,Random 125 mg/dL (74-106); Potassium 3.4 meq/L (3.5-5.1); Sodium 141 meq/L (136-145)
[2018-10-25 07:12] LABS: Hematocrit 23.6 % (39.0-51.0); Hemoglobin 8.1 gm/dL (13.0-17.0); Mean Corpuscular HGB Conc 34.3 % (32.0-36.0); Mean Corpuscular Hemoglobin 31.1 pg (27.0-34.0); Mean Corpuscular Volume 90.8 fL (80.0-100.0); Mean Platelet Volume 7.9 fL (7.0-11.0); Platelet Count 364 th/mm3 (150-450); Red Cell Distribution Width 14.5 % (11.6-17.2); White Blood Count 12.3 th/mm3 (4.0-11.0)
--- NOTE | 2018-10-25 09:03 | P.PNVS ---
Subjective Subjective/Hospital Course: Referral received. Spoke to Dr Kirk. Full consult TF Thanks J 10/23/2018 The patient has palpable femoral pulses and vessels are very firm and calcified , clearly palpable through the skin. Popliteal by Doppler on the left side, the patient has dressing, so I cannot detect the posterior tibial or dorsalis pedis. On the right side, the patient has weak posterior tibial and absent dorsalis pedis pulse by Doppler. 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 Foot on the left cannot be examined because it is dressed, but I see that the patient has gangrene of the left greater toe and also blisters over the back of the foot and I saw the pictures of it shown by Dr. Kirk. This patient has clearly peripheral vascular disease based on longstanding diabetes mellitus, hypertension, comorbidities with hyperlipidemia, poorly controlled. Based on my clinical exam this patient will probably not have any unreconstructable disease. Patients who have gangrene of the foot or toes are considered in a group with limb-threatening ischemia and 30% of those patients will lose extremity within a year, if not treated. We will continue to follow and advise as we go along and intervene as necessary. CTA confirms the findings. Patient has diffuse calcific atherosclerotic disease and no significant inflow stenosis. 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 This goes [id number] with clinical findings and therefore patient has no reconstructable disease in either leg 10/24/2018 Patient with no unreconstructable left leg peripheral vascular disease and gangrene of the distal foot I discussed this with Dr. Baldwin and we both agreed that salvageability of the foot is not an option This patient would most benefit from left below-knee amputation for this will get him back to functional status and activities In contrary situation patient will end up laying in bed, progressively decline and end up with decubiti, pneumonia and all other sequela of decreased activity Will discuss with patient at length and recommend BKA this week 10/25/2018 Extremity examined I agree fully with the construction equipment operator that this is a no unreconstructable disease and patient has no chance of meaningful recovery of the extremity with any therapy into functional status At this point the only way to functionally treat this patient is below-knee amputation and will proceed with the same tomorrow Objective Vital Signs / I&O: Vital Signs 10/24/18 11:38 10/24/18 12:00 10/24/18 15:50 Temperature 98.4 F 98.5 F Pulse Rate 99 H 68 92 H Respiratory Rate 20 20 Blood Pressure 131/63 166/83 H Pulse Oximetry 99 99 10/24/18 21:02 10/25/18 01:22 10/25/18 04:20 Temperature 98.4 F 99.1 F 98.9 F Pulse Rate 109 H 92 H 95 H Respiratory Rate 18 20 20 Blood Pressure 128/63 137/71 140/73 Pulse Oximetry 100 100 98 10/25/18 07:25 10/25/18 08:29 Temperature 98.7 F Pulse Rate 100 H 105 H Respiratory Rate 20 Blood Pressure 148/75 H Pulse Oximetry 96 Intake & Output 10/24/18 10/25/18 10/25/18 18:59 06:59 18:59 Intake Total 104 / 104 208 / 208 Output Total 300 / 300 Balance 104 / 104 -92 / -92 Weight 72.4 kg Intake: IV 104 / 104 208 / 208 Cleocin Inj 600 MG In NS Inj 104 / 104 208 / 208 100 ML @ 200 mls/hr IV.SIG Q8H [facility] Rx#:[id number] Output: Urine 300 / 300 Other: # Voids 2 Date of Last Bowel Movement 10/23/18 10/23/18 # Bowel Movements 1 Laboratory Results - last 24 hr 10/24/18 10/24/18 10/24/18 11:52 18:10 20:42 WBC RBC Hgb Hct MCV MCH MCHC RDW Plt Count MPV Sodium Potassium Chloride Carbon Dioxide Anion Gap BUN Creatinine Estimated GFR POC Glucose 190 H 214 H 251 H Random Glucose Calcium 10/25/18 10/25/18 10/25/18 04:52 04:52 08:01 WBC 12.3 H RBC 2.60 L Hgb 8.1 L Hct 23.6 L MCV 90.8 MCH 31.1 MCHC 34.3 RDW 14.5 Plt Count 364 MPV 7.9 Sodium 141 Potassium 3.4 L Chloride 109 H Carbon Dioxide 25.4 Anion Gap 7 BUN 10 Creatinine 0.83 Estimated GFR Greater than 89 POC Glucose 132 H Random Glucose 125 H Calcium 7.6 L
[2018-10-25] MEDS: Metoprolol Tartrate 25 MG Tablet PO SCH ×2 (09:40→21:35)
[2018-10-25] MEDS: levoFLOXacin 750 MG Tablet PO SCH (09:40)
[2018-10-25] MEDS: Insulin NovoLOG Aspart Correctional Sugar Inj SQ SCH ×4 (09:40→21:36)
[2018-10-25] MEDS: Ferrous Sulfate 325 MG Tablet PO SCH (09:40)
[2018-10-25] MEDS: Senna/Docusate Sodium 8.6/50 MG Tablet PO SCH ×2 (09:40→21:36)
[2018-10-25] MEDS: Collagenase Oint 30 GM Tube TOPICAL SCH (09:41)
--- NOTE | 2018-10-25 15:30 | P.PNIM ---
Subjective Interval history: Reports he is feeling okay today. Pain is controlled. No new issues. Scheduled for left BKA tomorrow. Physical Exam Vital signs: Vital Signs 10/24/18 15:50 10/24/18 21:02 10/25/18 01:22 Temperature 98.5 F 98.4 F 99.1 F Pulse Rate 92 H 109 H 92 H Respiratory Rate 20 18 20 Blood Pressure 166/83 H 128/63 137/71 Pulse Oximetry 99 100 100 10/25/18 04:20 10/25/18 07:25 10/25/18 08:29 Temperature 98.9 F 98.7 F Pulse Rate 95 H 100 H 105 H Respiratory Rate 20 20 Blood Pressure 140/73 148/75 H Pulse Oximetry 98 96 10/25/18 12:00 Temperature 98.6 F Pulse Rate 105 H Respiratory Rate 20 Blood Pressure 153/79 H Pulse Oximetry 99 Intake & Output 10/24/18 10/25/18 10/25/18 18:59 06:59 18:59 Intake Total 104 / 104 208 / 208 Output Total 300 / 300 Balance 104 / 104 -92 / -92 Weight 72.4 kg Intake: IV 104 / 104 208 / 208 Cleocin Inj 600 MG In NS Inj 104 / 104 208 / 208 100 ML @ 200 mls/hr IV.SIG Q8H JIMMY Rx#:[id number] Output: Urine 300 / 300 Other: # Voids 2 Date of Last Bowel Movement 10/23/18 10/23/18 # Bowel Movements 1 Narrative: GENERAL: No acute distress. CARDIOVASCULAR: Normal rate and regular rhythm. No murmur auscultated. RESPIRATORY: Clear to auscultation. Breath sounds equal bilaterally. No rales , wheezing or rhonchi. ABDOMEN: Soft, non-tender, nondistended. No guarding. Bowel sounds present and normoactive. EXTREMITIES: No clubbing, cyanosis. LLE wrapped. No significant drainage. NEUROLOGICAL: Awake and alert. Normal speech. PSYCHIATRIC: Calm and cooperative. Results Labs CBC & Chem 7: 10/25/18 04:52 10/25/18 04:52 Assessment and Plan Plan 62-year-old male with: SEPSIS due to LLE cellulitis - bld cultures neg x2 from 10/14., wbc 21->10 CELLULITIS and diabetic foot wounds L FOOT w gangrene, -ct wo abscess or osteo -us neg for dvt -wound cx/gs neg x 72 hrs, day 2 clinda, defepime -podiatry following, vascular surgery following. CTA runoff showed diffuse disease. Vascular surgery planning for left BKA tomorrow. ANEMIA s/p transfusion no acute bleeding - hgb 7.9 , cont ppi, iron , hx of chronic anemia. Repeat transfusion on 10/23/18. H&H stable today. -egd 10/19/18 - esophageal varices, nml -ct abd pelvis neg -Unremarkable colonoscopy. ABDIEL prerenal azotemia due to sepsis - resolved cr 11/21-->0.89 DMII - uncontrolled, a1c 8.4 - cont iss, diet, hold metformin for now ADJUSTMENT DO w depressed mixed anxiety and depressed mood - seen by psychiatry stable SEVERE PROTEIN VICKI MALNUTRITION alb 1.4 - nutrition consult, supplement CAD,PAD, [place] post CABG - cont meds DYSLIPIDEMIA CHF w EF 40% chronic stable DIABETIC RETINOPATHY vision impaired - fall precautions, doesn't drive dvt prophylaxis - sq heparin Dispo -plan for left BKA tomorrow. Progress Note: Quality VTE Deep Vein Thrombosis/Pulmonary Embolism Present on Admission: No
[2018-10-26] MEDS: Insulin NovoLOG Aspart Correctional Sugar Inj SQ SCH ×4 (07:54→21:10)
[2018-10-26 08:56] LABS: Hematocrit 25.2 % (39.0-51.0); Hemoglobin 8.6 gm/dL (13.0-17.0); Mean Corpuscular HGB Conc 34.3 % (32.0-36.0); Mean Corpuscular Hemoglobin 31.4 pg (27.0-34.0); Mean Corpuscular Volume 91.4 fL (80.0-100.0); Mean Platelet Volume 7.6 fL (7.0-11.0); Platelet Count 390 th/mm3 (150-450); Red Blood Count 2.75 mil/mm3 (4.50-5.90); Red Cell Distribution Width 14.6 % (11.6-17.2); White Blood Count 11.3 th/mm3 (4.0-11.0)
[2018-10-26] MEDS: levoFLOXacin 750 MG Tablet PO SCH (09:02)
[2018-10-26] MEDS: Ferrous Sulfate 325 MG Tablet PO SCH (09:02)
[2018-10-26] MEDS: Metoprolol Tartrate 25 MG Tablet PO SCH ×2 (09:02→21:10)
[2018-10-26 09:11] LABS: Anion Gap 7 meq/L (5-15); Blood Urea Nitrogen 9 mg/dL (7-18); Calcium 8.1 mg/dL (8.5-10.1); Carbon Dioxide 26.3 meq/L (21.0-32.0); Chloride 104 meq/L (98-107); Glomerular Filtration Rate Greater Than 89 mL/min (>89); Glucose,Random 118 mg/dL (74-106); Potassium 3.7 meq/L (3.5-5.1); Sodium 137 meq/L (136-145)
[2018-10-26] MEDS: Collagenase Oint 30 GM Tube TOPICAL SCH (10:14)
[2018-10-26] MEDS: Senna/Docusate Sodium 8.6/50 MG Tablet PO SCH ×2 (10:15→21:11)
[2018-10-26] MEDS ORDERED: Chlorhexidine Gluconate 2% 1 Pack (2 Cloths) TOPICAL ONE (10:30)
[2018-10-26] MEDS ORDERED: Metoprolol Tartrate 25 MG Tablet PO ONE (10:30)
[2018-10-26] MEDS ORDERED: Sodium Chlor 0.9% Inj 500 ML IV.CONT ONE (10:30)
--- NOTE | 2018-10-26 12:43 | P.PNIM ---
Subjective Interval history: For OR today. No acute issues. Physical Exam Vital signs: Vital Signs 10/25/18 16:15 10/25/18 20:00 10/26/18 00:00 Temperature 98.7 F 99.7 F H 97.8 F Pulse Rate 104 H 107 H 98 H Respiratory Rate 20 18 20 Blood Pressure 150/70 H 138/69 143/73 H Pulse Oximetry 96 100 99 10/26/18 04:00 10/26/18 06:15 10/26/18 06:16 Temperature 98.5 F Pulse Rate 99 H 92 H 89 Respiratory Rate 17 Blood Pressure 136/68 Pulse Oximetry 99 10/26/18 07:41 Temperature 98.6 F Pulse Rate 91 H Respiratory Rate 20 Blood Pressure 136/69 Pulse Oximetry 100 Intake & Output 10/25/18 10/26/18 10/26/18 18:59 06:59 18:59 Intake Total 104 / 104 208 / 208 Output Total 400 / 400 500 / 500 Balance -296 / -296 -292 / -292 Weight 72.4 kg Intake: IV 104 / 104 208 / 208 Cleocin Inj 600 MG In NS Inj 104 / 104 208 / 208 100 ML @ 200 mls/hr IV.SIG Q8H JIMMY Rx#:[id number] Output: Urine 400 / 400 500 / 500 Other: Date of Last Bowel Movement 10/23/18 10/23/18 10/23/18 Narrative: GENERAL: No acute distress. CARDIOVASCULAR: Normal rate and regular rhythm. No murmur auscultated. RESPIRATORY: Clear to auscultation. Breath sounds equal bilaterally. No rales , wheezing or rhonchi. ABDOMEN: Soft, non-tender, nondistended. No guarding. Bowel sounds present and normoactive. EXTREMITIES: No clubbing, cyanosis. LLE wrapped. No significant drainage. NEUROLOGICAL: Awake and alert. Normal speech. PSYCHIATRIC: Calm and cooperative. Results Labs CBC & Chem 7: 10/26/18 13:05 10/26/18 08:10 Assessment and Plan Plan 62-year-old male with: SEPSIS due to LLE cellulitis - bld cultures neg x2 from 10/14., wbc 21->10 CELLULITIS and diabetic foot wounds L FOOT w gangrene, -ct wo abscess or osteo -us neg for dvt -wound cx/gs neg x 72 hrs, day 2 clinda, defepime -podiatry following, vascular surgery following. CTA runoff showed diffuse disease. Vascular surgery planning for left BKA today. ANEMIA s/p transfusion no acute bleeding - hgb 7.9 , cont ppi, iron , hx of chronic anemia. Repeat transfusion on 10/23/18. H&H stable today. -egd 10/19/18 - esophageal varices, nml -ct abd pelvis neg -Unremarkable colonoscopy. ABDIEL prerenal azotemia due to sepsis - resolved cr 11/21-->0.89 DMII - uncontrolled, a1c 8.4 - cont iss, diet, hold metformin for now ADJUSTMENT DO w depressed mixed anxiety and depressed mood - seen by psychiatry stable SEVERE PROTEIN VICKI MALNUTRITION alb 1.4 - nutrition consult, supplement CAD,PAD, [place] post CABG - cont meds DYSLIPIDEMIA CHF w EF 40% chronic stable DIABETIC RETINOPATHY vision impaired - fall precautions, doesn't drive dvt prophylaxis - sq heparin Dispo -Plan for left BKA today. Progress Note: Quality VTE Deep Vein Thrombosis/Pulmonary Embolism Present on Admission: No
[2018-10-26 13:21] LABS: Hematocrit 21.1 % (39.0-51.0)
[2018-10-26] MEDS ORDERED: *morphine SULFATE 10 MG/ML PERIprocedure ONLY ONE ×3 (13:46→14:14)
[2018-10-26] MEDS ORDERED: fentaNYL Citrate Inj 100 MCG/2 ML Ampul ONE ×2 (13:47→13:48)
[2018-10-26] MEDS ORDERED: Morphine Inj 4 MG/ML Vial ONE (13:48)
[2018-10-26 23:17] LABS: Hematocrit 28.9 % (39.0-51.0)
[2018-10-27] MEDS: levoFLOXacin 750 MG Tablet PO SCH (08:57)
[2018-10-27] MEDS: Ferrous Sulfate 325 MG Tablet PO SCH (08:57)
[2018-10-27] MEDS: Metoprolol Tartrate 25 MG Tablet PO SCH ×2 (08:57→20:43)
[2018-10-27] MEDS: Senna/Docusate Sodium 8.6/50 MG Tablet PO SCH ×2 (08:58→20:43)
[2018-10-27] MEDS: Insulin NovoLOG Aspart Correctional Sugar Inj SQ SCH ×4 (08:58→20:43)
[2018-10-27] MEDS: Collagenase Oint 30 GM Tube TOPICAL SCH (08:59)
--- NOTE | 2018-10-27 13:28 | P.PNIM ---
Subjective Interval history: Patient reports he is feeling okay today. Pain is controlled. Physical Exam Vital signs: Vital Signs 10/26/18 13:32 10/26/18 13:45 10/26/18 14:00 Temperature 98.1 F Pulse Rate 95 H 95 H 97 H Respiratory Rate 16 14 13 Blood Pressure 115/61 118/65 107/64 Pulse Oximetry 99 99 99 10/26/18 14:15 10/26/18 14:30 10/26/18 14:45 Temperature Pulse Rate 93 H 90 89 Respiratory Rate 10 L 12 10 L Blood Pressure 109/62 121/67 108/60 Pulse Oximetry 99 100 100 10/26/18 15:00 10/26/18 15:15 10/26/18 15:30 Temperature 98.7 F Pulse Rate 89 87 87 Respiratory Rate 10 L 12 12 Blood Pressure 106/61 102/57 L 98/51 L Pulse Oximetry 100 100 100 10/26/18 15:38 10/26/18 15:45 10/26/18 16:00 Temperature 98.7 F 98.3 F 98.5 F Pulse Rate 88 88 83 Respiratory Rate 10 L 12 11 L Blood Pressure 93/51 L 95/55 L 99/61 L Pulse Oximetry 100 100 100 10/26/18 17:41 10/26/18 18:02 10/26/18 18:35 Temperature 98.2 F 97.7 F 97.7 F Pulse Rate 87 88 87 Respiratory Rate 20 20 20 Blood Pressure 107/66 111/56 L 116/64 Pulse Oximetry 94 L 94 L 97 10/26/18 20:00 10/26/18 21:03 10/27/18 00:00 Temperature 97.1 F L 97.7 F 98.0 F Pulse Rate 97 H 99 H 98 H Respiratory Rate 20 14 16 Blood Pressure 117/78 117/65 126/76 Pulse Oximetry 93 L 97 96 10/27/18 04:00 10/27/18 07:20 10/27/18 11:15 Temperature 98.0 F 98.8 F 98.6 F Pulse Rate 98 H 97 H 95 H Respiratory Rate 18 20 20 Blood Pressure 106/56 L 139/73 154/74 H Pulse Oximetry 97 97 96 Intake & Output 10/26/18 10/27/18 10/27/18 18:59 06:59 18:59 Intake Total 1650 / 1650 608 / 608 104 / 104 Output Total 600 / 600 800 / 800 Balance 1050 / 1050 608 / 608 -696 / -696 Weight 72.4 kg Intake: IV 104 / 104 Cleocin Inj 600 MG In NS Inj / 104 100 ML @ 200 mls/hr IV.SIG Q8H JIMMY Rx#:[id number] Anesthesia Amount 1000 / 1000 Other 250 / 250 Rbc As-3 Leukoreduced Unit 250 / 250 [id number] Intake (Blood Product) Amt 400 / 400 400 / 400 Rbc As-3 Leukoreduced Unit 0 / 0 400 / 400 [id number] Rbc As-3 Leukoreduced Unit 400 / 400 [id number] Output: Urine 800 / 800 Estimated Blood Loss 600 / 600 Other: Date of Last Bowel Movement 10/23/18 10/23/18 Narrative: GENERAL: No acute distress. CARDIOVASCULAR: Normal rate and regular rhythm. No murmur auscultated. RESPIRATORY: Clear to auscultation. Breath sounds equal bilaterally. No rales , wheezing or rhonchi. ABDOMEN: Soft, non-tender, nondistended. No guarding. Bowel sounds present and normoactive. EXTREMITIES: No clubbing, cyanosis. Status post left BKA. Stump is wrapped. No drainage. NEUROLOGICAL: Awake and alert. Normal speech. PSYCHIATRIC: Calm and cooperative. Results Labs CBC & Chem 7: 10/26/18 22:55 10/26/18 08:10 Assessment and Plan Plan 62-year-old male with: SEPSIS due to LLE cellulitis - bld cultures neg x2 from 10/14., wbc 21->10 CELLULITIS and diabetic foot wounds L FOOT w gangrene, -ct wo abscess or osteo -us neg for dvt -wound cx/gs neg x 72 hrs, on clindamycin. -podiatry following, vascular surgery following. CTA runoff showed diffuse disease. Patient underwent left BKA on 10/26/18. Doing well postop. -Plan to discontinue antibiotics when okay with surgery. ANEMIA s/p transfusion no acute bleeding - hgb 7.9 , cont ppi, iron , hx of chronic anemia. Repeat transfusion on 10/23/18. H&H stable today. -egd 10/19/18 - esophageal varices, nml -ct abd pelvis neg -Unremarkable colonoscopy. ABDIEL prerenal azotemia due to sepsis - resolved cr 2/6-->0.89 DMII - uncontrolled, a1c 8.4 - cont iss, diet, hold metformin for now ADJUSTMENT DO w depressed mixed anxiety and depressed mood - seen by psychiatry stable SEVERE PROTEIN VICKI MALNUTRITION alb 1.4 - nutrition consult, supplement CAD,PAD, [place] post CABG - cont meds DYSLIPIDEMIA CHF w EF 40% chronic stable DIABETIC RETINOPATHY vision impaired - fall precautions, doesn't drive dvt prophylaxis - sq heparin Dispo -need SNF placement. Progress Note: Quality VTE Deep Vein Thrombosis/Pulmonary Embolism Present on Admission: No
--- NOTE | 2018-10-27 14:50 | P.PNVS ---
Subjective Subjective/Hospital Course: Referral received. Spoke to Dr Kirk. Full consult TF Thanks J 10/23/2018 The patient has palpable femoral pulses and vessels are very firm and calcified , clearly palpable through the skin. Popliteal by Doppler on the left side, the patient has dressing, so I cannot detect the posterior tibial or dorsalis pedis. On the right side, the patient has weak posterior tibial and absent dorsalis pedis pulse by Doppler. 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 Foot on the left cannot be examined because it is dressed, but I see that the patient has gangrene of the left greater toe and also blisters over the back of the foot and I saw the pictures of it shown by Dr. Kirk. This patient has clearly peripheral vascular disease based on longstanding diabetes mellitus, hypertension, comorbidities with hyperlipidemia, poorly controlled. Based on my clinical exam this patient will probably not have any unreconstructable disease. Patients who have gangrene of the foot or toes are considered in a group with limb-threatening ischemia and 30% of those patients will lose extremity within a year, if not treated. We will continue to follow and advise as we go along and intervene as necessary. CTA confirms the findings. Patient has diffuse calcific atherosclerotic disease and no significant inflow stenosis. 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 This goes [id number] with clinical findings and therefore patient has no reconstructable disease in either leg 10/24/2018 Patient with no unreconstructable left leg peripheral vascular disease and gangrene of the distal foot I discussed this with Dr. Baldwin and we both agreed that salvageability of the foot is not an option This patient would most benefit from left below-knee amputation for this will get him back to functional status and activities In contrary situation patient will end up laying in bed, progressively decline and end up with decubiti, pneumonia and all other sequela of decreased activity Will discuss with patient at length and recommend BKA this week 10/25/2018 Extremity examined I agree fully with the recep that this is a no unreconstructable disease and patient has no chance of meaningful recovery of the extremity with any therapy into functional status At this point the only way to functionally treat this patient is below-knee amputation and will proceed with the same tomorrow 10/27/2018 Status post left below-knee amputation Dressing intact and will leave the same till Monday Nothing to add from surgical point Objective Vital Signs / I&O: Vital Signs 10/26/18 15:00 10/26/18 15:15 10/26/18 15:30 Temperature 98.7 F Pulse Rate 89 87 87 Respiratory Rate 10 L 12 12 Blood Pressure 106/61 102/57 L 98/51 L Pulse Oximetry 100 100 100 10/26/18 15:38 10/26/18 15:45 10/26/18 16:00 Temperature 98.7 F 98.3 F 98.5 F Pulse Rate 88 88 83 Respiratory Rate 10 L 12 11 L Blood Pressure 93/51 L 95/55 L 99/61 L Pulse Oximetry 100 100 100 10/26/18 17:41 10/26/18 18:02 10/26/18 18:35 Temperature 98.2 F 97.7 F 97.7 F Pulse Rate 87 88 87 Respiratory Rate 20 20 20 Blood Pressure 107/66 111/56 L 116/64 Pulse Oximetry 94 L 94 L 97 10/26/18 20:00 10/26/18 21:03 10/27/18 00:00 Temperature 97.1 F L 97.7 F 98.0 F Pulse Rate 97 H 99 H 98 H Respiratory Rate 20 14 16 Blood Pressure 117/78 117/65 126/76 Pulse Oximetry 93 L 97 96 10/27/18 04:00 10/27/18 07:20 10/27/18 11:15 Temperature 98.0 F 98.8 F 98.6 F Pulse Rate 98 H 97 H 95 H Respiratory Rate 18 20 20 Blood Pressure 106/56 L 139/73 154/74 H Pulse Oximetry 97 97 96 Intake & Output 10/26/18 10/27/18 10/27/18 18:59 06:59 18:59 Intake Total 1650 / 1650 608 / 608 104 / 104 Output Total 600 / 600 800 / 800 Balance 1050 / 1050 608 / 608 -696 / -696 Weight 72.4 kg Intake: IV / 104 / 104 Cleocin Inj 600 MG In NS Inj 104 / 104 100 ML @ 200 mls/hr IV.SIG Q8H JIMMY Rx#:[id number] Anesthesia Amount 1000 / 1000 Other 250 / 250 Rbc As-3 Leukoreduced Unit 250 / 250 [id number] Intake (Blood Product) Amt 400 / 400 400 / 400 Rbc As-3 Leukoreduced Unit 0 / 0 400 / 400 [id number] Rbc As-3 Leukoreduced Unit 400 / 400 [id number] Output: Urine 800 / 800 Estimated Blood Loss 600 / 600 Other: Date of Last Bowel Movement 10/23/18 10/23/18 Laboratory Results - last 24 hr 10/23/18 10/26/18 10/26/18 08:58 14:30 14:59 Hgb Hct POC Glucose 129 H Blood Type B Positive Antibody Screen Negative MTS Gel Crossmatch See Detail See Detail 10/26/18 10/26/18 10/26/18 17:59 21:06 22:55 Hgb 10.0 L D Hct 28.9 L POC Glucose 148 H 166 H Blood Type Antibody Screen MTS Gel Crossmatch 10/27/18 10/27/18 07:27 11:41 Hgb Hct POC Glucose 212 H 208 H Blood Type Antibody Screen MTS Gel Crossmatch
--- NOTE | 2018-10-27 15:19 | MP ---
cc: Rachna Gentile MD DATE OF OPERATION: 10/27/2018 PREOPERATIVE DIAGNOSIS: Gangrene of the left foot, peripheral vascular disease. POSTOPERATIVE DIAGNOSIS: Gangrene of the left foot, peripheral vascular disease. PROCEDURE: Left below-knee amputation. SURGEON: Rachna Gentile MD ANESTHESIA: General. ESTIMATED BLOOD LOSS: 200 mL. DETAILS OF PROCEDURE: The patient was prepped and draped in usual fashion. An incision made pretibial, carried around inferiorly to create posterior flap. Incision was deepened with cautery through the fascia. Through the process the patient had a fair amount of bleeding considering that the entire lower leg was supplied by collaterals and in addition, the patient has significant edema from the infection. The anterior group of muscles was now attended. These were transected and anterior tibial artery and veins clamped, divided, and ligated with 0 Vicryl stick ties. The vessel was occluded, by the way, there was heavy calcium in it that could only be cut with heavy scissors. The tibia and fibula were next exposed with periosteal elevator and then both bones were transected with oscillating saw. The tourniquet was now inflated and then posterior flap created with the amputation knife and specimen removed. The trifurcation was now ligated with 0 Vicryl stick ties, ligating the veins and the arteries. Most of this was occluded anyway. Anterior tibial nerve was allowed to retract. The tourniquet brought down after about 2 minutes and irrigated with copious amounts of saline. Small bleeders were controlled with cautery. The anterior tibia angle was now taken off with the oscillating saw and then filed with rasp nice and around it. The posterior flap is now flipped forward and then the incisions closed with 0 Vicryl for deep fascia, for superficial fascia and skin was closed with 2-0 Prolene interrupted stitches. The patient tolerated the procedure well. Dressing applied. Rachna Gentile MD SJ/ct , 02:53 PM , 03:00 PM
[2018-10-28] MEDS: Insulin NovoLOG Aspart Correctional Sugar Inj SQ SCH ×4 (07:45→21:58)
[2018-10-28 08:05] LABS: Hematocrit 27.7 % (39.0-51.0); Hemoglobin 9.5 gm/dL (13.0-17.0); Mean Corpuscular HGB Conc 34.3 % (32.0-36.0); Mean Corpuscular Hemoglobin 31.6 pg (27.0-34.0); Mean Corpuscular Volume 92.2 fL (80.0-100.0); Mean Platelet Volume 7.7 fL (7.0-11.0); Platelet Count 304 th/mm3 (150-450); Red Blood Count 3.01 mil/mm3 (4.50-5.90); Red Cell Distribution Width 14.5 % (11.6-17.2); White Blood Count 10.9 th/mm3 (4.0-11.0)
[2018-10-28] MEDS: Ferrous Sulfate 325 MG Tablet PO SCH (08:09)
[2018-10-28] MEDS: levoFLOXacin 750 MG Tablet PO SCH (08:09)
[2018-10-28] MEDS: Metoprolol Tartrate 25 MG Tablet PO SCH ×2 (08:09→21:58)
[2018-10-28] MEDS: Senna/Docusate Sodium 8.6/50 MG Tablet PO SCH ×2 (08:09→21:58)
[2018-10-28] MEDS: Collagenase Oint 30 GM Tube TOPICAL SCH (08:10)
[2018-10-28 08:32] LABS: Anion Gap 4 meq/L (5-15); Blood Urea Nitrogen 9 mg/dL (7-18); Calcium 7.8 mg/dL (8.5-10.1); Chloride 104 meq/L (98-107); Glomerular Filtration Rate Greater Than 89 mL/min (>89); Glucose,Random 111 mg/dL (74-106); Potassium 3.6 meq/L (3.5-5.1); Sodium 138 meq/L (136-145)
--- NOTE | 2018-10-28 15:14 | P.PNIM ---
Subjective Interval history: Patient reports he is feeling okay today. No new issues. He does not have any pain. Physical Exam Vital signs: Vital Signs 10/27/18 20:00 10/28/18 00:00 10/28/18 04:00 Temperature 99.7 F H 98.1 F 98 F Pulse Rate 115 H 86 102 H Respiratory Rate 18 18 18 Blood Pressure 139/75 127/72 135/72 Pulse Oximetry 99 100 98 10/28/18 08:00 10/28/18 10:45 Temperature 98.6 F 98.4 F Pulse Rate 96 H 93 H Respiratory Rate 20 20 Blood Pressure 153/79 H 142/72 H Pulse Oximetry 98 99 Intake & Output 10/27/18 10/28/18 10/28/18 18:59 06:59 18:59 Intake Total 208 / 208 104 / 104 344 / 344 Output Total 800 / 800 1100 / 1100 800 / 800 Balance -592 / -592 -996 / -996 -456 / -456 Weight 72.4 kg Intake: IV 208 / 208 104 / 104 104 / 104 LR 1000 mL Inj 1,000 ML @ 30 0 / 0 mls/hr IV.CONT .Q24H ONE Rx#: [id number] Cleocin Inj 600 MG In NS Inj 208 / 208 104 / 104 104 / 104 100 ML @ 200 mls/hr IV.SIG Q8H JIMMY Rx#:[id number] Oral 240 / 240 Output: Urine 800 / 800 1100 / 1100 800 / 800 Narrative: GENERAL: No acute distress. CARDIOVASCULAR: Normal rate and regular rhythm. No murmur auscultated. RESPIRATORY: Clear to auscultation. Breath sounds equal bilaterally. No rales , wheezing or rhonchi. ABDOMEN: Soft, non-tender, nondistended. No guarding. Bowel sounds present and normoactive. EXTREMITIES: No clubbing, cyanosis. Status post left BKA. Stump is wrapped. No drainage. NEUROLOGICAL: Awake and alert. Normal speech. PSYCHIATRIC: Calm and cooperative. Results Labs CBC & Chem 7: 10/28/18 07:17 10/28/18 07:17 Assessment and Plan Plan 62-year-old male with: SEPSIS due to LLE cellulitis - bld cultures neg x2 from 10/14., wbc 21->10 CELLULITIS and diabetic foot wounds L FOOT w gangrene, -ct wo abscess or osteo -us neg for dvt -wound cx/gs neg x 72 hrs, on clindamycin. -podiatry following, vascular surgery following. CTA runoff showed diffuse disease. Patient underwent left BKA on 10/26/18. Doing well postop. -Dr. Ferreira to reevaluate the stump tomorrow. Plan to discontinue antibiotics when okay with surgery. ANEMIA s/p transfusion no acute bleeding - hgb 7.9 , cont ppi, iron , hx of chronic anemia. Status post transfusions. H&H stable today. -egd 10/19/18 - esophageal varices, nml -ct abd pelvis neg -Unremarkable colonoscopy. ABDIEL prerenal azotemia due to sepsis - resolved cr 11/21-->0.89 DMII - uncontrolled, a1c 8.4 - cont iss, diet, hold metformin for now ADJUSTMENT DO w depressed mixed anxiety and depressed mood - seen by psychiatry stable SEVERE PROTEIN VICKI MALNUTRITION alb 1.4 - nutrition consult, supplement CAD,PAD, [place] post CABG - cont meds DYSLIPIDEMIA CHF w EF 40% chronic stable DIABETIC RETINOPATHY vision impaired - fall precautions, doesn't drive dvt prophylaxis - sq heparin Dispo -need SNF placement once cleared by vascular surgery.. Progress Note: Quality VTE Deep Vein Thrombosis/Pulmonary Embolism Present on Admission: No
[2018-10-29] MEDS: Insulin NovoLOG Aspart Correctional Sugar Inj SQ SCH ×4 (09:11→21:40)
[2018-10-29] MEDS: levoFLOXacin 750 MG Tablet PO SCH (09:13)
[2018-10-29] MEDS: Ferrous Sulfate 325 MG Tablet PO SCH (09:13)
[2018-10-29] MEDS: Metoprolol Tartrate 25 MG Tablet PO SCH ×2 (09:13→21:17)
[2018-10-29] MEDS: Senna/Docusate Sodium 8.6/50 MG Tablet PO SCH ×2 (09:16→21:17)
[2018-10-29] MEDS: Collagenase Oint 30 GM Tube TOPICAL SCH (09:19)
--- NOTE | 2018-10-29 14:58 | P.PNIM ---
Subjective Interval history: Patient reports he is feeling well today. Afebrile. Pain is controlled. Physical Exam Vital signs: Vital Signs 10/28/18 20:00 10/29/18 00:00 10/29/18 04:00 Temperature 98.6 F 98 F 98.1 F Pulse Rate 105 H 90 93 H Respiratory Rate 18 18 16 Blood Pressure 142/70 H 149/79 H 148/71 H Pulse Oximetry 98 94 L 95 10/29/18 07:15 10/29/18 08:00 10/29/18 10:35 Temperature 97.9 F 98.0 F Pulse Rate 94 H 95 H 90 Respiratory Rate 18 18 Blood Pressure 152/78 H 140/67 Pulse Oximetry 95 98 10/29/18 12:00 Temperature Pulse Rate 95 H Respiratory Rate Blood Pressure Pulse Oximetry Intake & Output 10/28/18 10/29/18 10/29/18 18:59 06:59 18:59 Intake Total 448 / 448 104 / 104 104 / 104 Output Total 800 / 800 1550 / 1550 Balance -352 / -352 104 / 104 -1446 / -1446 Intake: IV 208 / 208 104 / 104 104 / 104 Cleocin Inj 600 MG In NS Inj 208 / 208 104 / 104 104 / 104 100 ML @ 200 mls/hr IV.SIG Q8H JIMMY Rx#:[id number] Oral 240 / 240 Output: Urine 800 / 800 1550 / 1550 Other: Date of Last Bowel Movement 10/24/18 Narrative: GENERAL: No acute distress. CARDIOVASCULAR: Normal rate and regular rhythm. No murmur auscultated. RESPIRATORY: Clear to auscultation. Breath sounds equal bilaterally. No rales , wheezing or rhonchi. ABDOMEN: Soft, non-tender, nondistended. No guarding. Bowel sounds present and normoactive. EXTREMITIES: No clubbing, cyanosis. Status post left BKA. Stump is wrapped. No drainage. NEUROLOGICAL: Awake and alert. Normal speech. PSYCHIATRIC: Calm and cooperative. Results Labs CBC & Chem 7: 10/28/18 07:17 10/28/18 07:17 Assessment and Plan Plan 62-year-old male with: SEPSIS due to LLE cellulitis - bld cultures neg x2 from 10/14., wbc 21->10 CELLULITIS and diabetic foot wounds L FOOT w gangrene, -ct wo abscess or osteo -us neg for dvt -wound cx/gs neg x 72 hrs, on clindamycin. -podiatry following, vascular surgery following. CTA runoff showed diffuse disease. Patient underwent left BKA on 10/26/18. Doing well postop. -Dr. Ferreira to reevaluate the stump today. Plan to discontinue antibiotics when okay with surgery. ANEMIA s/p transfusion no acute bleeding - hgb 7.9 , cont ppi, iron , hx of chronic anemia. Status post transfusions. H&H stable today. -egd 10/19/18 - esophageal varices, nml -ct abd pelvis neg -Unremarkable colonoscopy. ABDIEL prerenal azotemia due to sepsis - resolved cr 11/21-->0.89 DMII - uncontrolled, a1c 8.4 - cont iss, diet, hold metformin for now ADJUSTMENT DO w depressed mixed anxiety and depressed mood - seen by psychiatry stable SEVERE PROTEIN VICKI MALNUTRITION alb 1.4 - nutrition consult, supplement CAD,PAD, [place] post CABG - cont home meds DYSLIPIDEMIA CHF w EF 40% chronic stable DIABETIC RETINOPATHY vision impaired - fall precautions, doesn't drive dvt prophylaxis - sq heparin Dispo -need SNF placement once cleared by vascular surgery. Discussed with case management. Nursing facility following and requesting insurance authorization. PT to reevaluate today. Progress Note: Quality VTE Deep Vein Thrombosis/Pulmonary Embolism Present on Admission: No
[2018-10-30] MEDS: Senna/Docusate Sodium 8.6/50 MG Tablet PO SCH (08:34)
[2018-10-30] MEDS: levoFLOXacin 750 MG Tablet PO SCH (08:34)
[2018-10-30] MEDS: Metoprolol Tartrate 25 MG Tablet PO SCH (08:34)
[2018-10-30] MEDS: Ferrous Sulfate 325 MG Tablet PO SCH (08:34)
[2018-10-30] MEDS: Insulin NovoLOG Aspart Correctional Sugar Inj SQ SCH ×3 (08:35→17:44)
[2018-10-30] MEDS: Collagenase Oint 30 GM Tube TOPICAL SCH (08:36)
--- NOTE | 2018-10-30 10:25 | P.PNIM ---
Subjective Interval history: f/u; s/p left BKA in no acute distress. looks comfortable. denies pain. no fever. no new complaints. Physical Exam Vital signs: Vital Signs 10/29/18 10:35 10/29/18 12:00 10/29/18 15:05 Temperature 98.0 F 97.9 F Pulse Rate 90 95 H 94 H Respiratory Rate 18 18 Blood Pressure 140/67 142/70 H Pulse Oximetry 98 97 10/29/18 16:00 10/29/18 20:00 10/30/18 00:00 Temperature 98.1 F 97.9 F Pulse Rate 94 H 94 H 93 H Respiratory Rate 20 20 Blood Pressure 143/73 H 149/78 H Pulse Oximetry 100 99 10/30/18 03:49 10/30/18 04:00 10/30/18 08:00 Temperature 97.9 F 98.2 F Pulse Rate 89 90 Respiratory Rate 18 20 20 Blood Pressure 145/74 H 142/71 H Pulse Oximetry 99 96 Intake & Output 10/29/18 10/30/18 10/30/18 18:59 06:59 18:59 Intake Total 208 / 208 104 / 104 104 / 104 Output Total 2150 / 2150 650 / 650 Balance -1942 / -1942 -546 / -546 104 / 104 Intake: IV 208 / 208 104 / 104 104 / 104 Cleocin Inj 600 MG In NS Inj 208 / 208 104 / 104 104 / 104 100 ML @ 200 mls/hr IV.SIG Q8H JIMMY Rx#:[id number] Output: Urine 2150 / 2150 650 / 650 Other: Date of Last Bowel Movement 10/24/18 Constitutional no acute distress Routine Respiratory Exam Present CTA bilaterally Routine Cardiovascular Exam Present RRR Routine Abdominal Exam Present soft Routine Extremities Exam Comments: s/p left BKA. Routine Neurological Exam Present alert and oriented X3 Results Labs CBC & Chem 7: 10/28/18 07:17 10/28/18 07:17 Procedures Procedures: left BKA. Assessment and Plan Plan SEPSIS due to LLE cellulitis - bld cultures neg x2 from 10/14. CELLULITIS and diabetic foot wounds L FOOT w gangrene, -ct wo abscess or osteo -us neg for dvt -wound cx/gs neg x 72 hrs, on clindamycin. -podiatry following, vascular surgery following. CTA runoff showed diffuse disease. Patient underwent left BKA on 10/26/18. Doing well postop. -Dr. Ferreira to reevaluate the stump today. Plan to discontinue antibiotics when okay with surgery. ANEMIA s/p transfusion no acute bleeding - hgb 7.9 , cont ppi, iron , hx of chronic anemia. Status post transfusions. H&H stable . -egd 10/19/18 - esophageal varices, nml -ct abd pelvis neg -Unremarkable colonoscopy. -GI signed off. ABDIEL prerenal azotemia due to sepsis - resolved cr 11/21-->0.89 DMII - uncontrolled, a1c 8.4 - cont iss, diet, hold metformin for now ADJUSTMENT DO w depressed mixed anxiety and depressed mood - seen by psychiatry stable SEVERE PROTEIN VICKI MALNUTRITION alb 1.4 - nutrition consult, supplement CAD,PAD, [place] post CABG - cont home meds DYSLIPIDEMIA CHF w EF 40% chronic stable DIABETIC RETINOPATHY vision impaired - fall precautions, doesn't drive dvt prophylaxis - sq heparin Discussed Condition With: the patient and . Discharge Planning: dc to SNF when cleared by vascular surgery. Progress Note: Quality VTE Deep Vein Thrombosis/Pulmonary Embolism Present on Admission: No
--- NOTE | 2018-10-30 10:28 | P.PNID ---
Subjective Remarks: Patient is a 62-year-old male, presented to the hospital complaining of swelling and pain in his left lower extremity. He could not really tell me how long it has been there. He denies any trauma, denies any previous episode of cellulitis in the left lower extremity. He denies any fever chills or sweats. But since his been here he had been febrile up to 101+. He denies any sore throat or any respiratory complaint. Denies any nausea or vomiting, GI or any urinary complaints. On presentation his WBC was 23,000. His creatinine was up to 2.06. CT of the left lower extremity did not show any abscess, osteophyte just significant swelling compatible with cellulitis. He is on cefepime and vancomycin Infectious disease consultation has been requested to assist with evaluation and treatment of his cellulitis. Notes reviewed Temps ok S/P LBKA 10/27 C/O mild pain lateral aspect of stump WBC normal Creatinine normal Antibiotics: Levaquin Clindamycin Past Medical History: Past HX: hypertension, diabetes mellitus, coronary artery disease, CHF (last EF of 40% in 08/01) peripheral arterial disease, hyperlipidemia, depression, GERD and osteoarthritis Past Surgical History: CABG Right first toe amputation Left arm I&D for MRSA Allergies/Adverse Reactions: Allergies No Known Allergies Allergy (Verified 10/14/18 22:12) Objective Vital Signs 10/29/18 10:35 10/29/18 12:00 10/29/18 15:05 Temperature 98.0 F 97.9 F Pulse Rate 90 95 H 94 H Respiratory Rate 18 18 Blood Pressure 140/67 142/70 H Pulse Oximetry 98 97 10/29/18 16:00 10/29/18 20:00 10/30/18 00:00 Temperature 98.1 F 97.9 F Pulse Rate 94 H 94 H 93 H Respiratory Rate 20 20 Blood Pressure 143/73 H 149/78 H Pulse Oximetry 100 99 10/30/18 03:49 10/30/18 04:00 10/30/18 08:00 Temperature 97.9 F 98.2 F Pulse Rate 89 90 Respiratory Rate 18 20 20 Blood Pressure 145/74 H 142/71 H Pulse Oximetry 99 96 Intake & Output 10/29/18 10/30/18 10/30/18 18:59 06:59 18:59 Intake Total 208 / 208 104 / 104 104 / 104 Output Total 2150 / 2150 650 / 650 Balance -1942 / -1942 -546 / -546 Intake: IV / 104 Cleocin Inj 600 MG In NS Inj / 100 ML @ 200 mls/hr IV.SIG Q8H JIMMY Rx#:[id number] Output: Urine 0 / 2150 650 / 650 Other: Date of Last Bowel Movement 10/24/18 Lab - Chemistry Results 10/28/18 10/28/18 10/28/18 11:26 16:04 21:15 POC Glucose 162 H 281 H 279 H 10/29/18 10/29/18 10/29/18 07:59 12:02 17:05 POC Glucose 141 H 202 H 253 H 10/29/18 10/30/18 21:34 07:49 POC Glucose 176 H 132 H Imaging: ITS Impressions Lower Extremity CT 10/15/18 00:00 CONCLUSION: 1. Cellulitis without abscess or osteomyelitis. Venous Doppler Study 10/15/18 00:00 CONCLUSION: 1. No sonographic evidence for left lower extremity DVT. Abdomen/Pelvis CT 10/16/18 00:00 CONCLUSION: 1. No acute findings within the abdomen. Trace free fluid in the pelvis of unknown etiology. Aorta w/Runoff CTA 10/21/18 14:52 CONCLUSION: 1. Diffuse atherosclerotic disease most prominent in the lower legs bilaterally. Proximal occlusion of the anterior tibial arteries bilaterally and of the posterior tibial artery on the left. Peroneal arteries patent to the foot bilaterally. Posterior tibial artery patent to the foot on the right. Reconstitution of the posterior tibial artery on the left 10 cm above the ankle. 2. No evidence of high-grade arterial stenosis or occlusion in the thigh or popliteal regions. 3. Diffuse atherosclerotic disease of the internal iliac arteries. Abdominal aorta diameter within normal limits. Mesenteric arteries and renal arteries widely patent. Physical Exam: GENERAL: awake and alert, not in respiratory distress. SKIN: Warm and dry. No generalized rash, EYES: Pale conjunctiva. No petechia or hemorrhage. No scleral icterus. No injection or drainage. EARS, NOSE AND THROAT: Mucous membranes pink and moist. No oral lesions noted. No exudate. No oral thrush. NECK: Trachea midline. Supple and not tender, no meningeal signs CARDIOVASCULAR: Regular rate and rhythm. No murmurs, rubs or gallops heard RESPIRATORY: Clear to auscultation. Breath sounds equal bilaterally. No rales , wheezing or rhonchi ABDOMEN: Soft, non-tender, nondistended. Bowel sounds present and normoactive. No guarding. No rebound. No organomegaly. EXTREMITIES: No clubbing, cyanosis. LBKA stump with dry and intact dressing NEUROLOGICAL: Non-focal. PSYCHIATRIC: calm and cooperative. LINE: No evidence of infection Assessment and Plan - Plan Impression Sepsis due to LLE cellulitis Cellulitis LLE Open wounds LLE Leukocytosis, up again Renal insufficiency, better Known DM Per records PVD Anemia Recommendation Continue Levaquin Continue Clindamycin Give Abx until 11/03 Patient has been accepted at [facility] when he gets D/C He is clinically stable from ID standpoint D/W Dr Neely
[2018-10-30 10:33] LABS: Hematocrit 28.5 % (39.0-51.0); Hemoglobin 9.5 gm/dL (13.0-17.0); Mean Corpuscular HGB Conc 33.3 % (32.0-36.0); Mean Corpuscular Hemoglobin 30.8 pg (27.0-34.0); Mean Corpuscular Volume 92.6 fL (80.0-100.0); Mean Platelet Volume 7.5 fL (7.0-11.0); Platelet Count 346 th/mm3 (150-450); Red Blood Count 3.07 mil/mm3 (4.50-5.90); Red Cell Distribution Width 14.2 % (11.6-17.2); White Blood Count 7.1 th/mm3 (4.0-11.0)
[2018-10-30 10:46] LABS: Anion Gap 7 meq/L (5-15); Blood Urea Nitrogen 12 mg/dL (7-18); Calcium 8.5 mg/dL (8.5-10.1); Carbon Dioxide 26.6 meq/L (21.0-32.0); Chloride 104 meq/L (98-107); Glomerular Filtration Rate Greater Than 89 mL/min (>89); Glucose,Random 113 mg/dL (74-106); Sodium 138 meq/L (136-145)
--- NOTE | 2018-10-30 13:28 | P.DS ---
DS: Providers Date of admission: 10/15/18 00:53 Primary care physician: UNKNOWN Consults: 10/16/18 12:51 Consult to Gastroenterology Routine Consulting Provider: Kristian Echeverria Reason for Consultation: Hgb dropping from 8.2 on admission to 6.8 today. Notified:: Service Spoke with:: Yamilet Date Notified:: 10/16/18 Time Notified:: 13:01 Ordering Provider: JULY 10/19/18 09:04 HUB Only Consult Order Routine Consulting Provider: [facility] 10/19/18 09:43 HUB Only Consult Order Routine Consulting Provider: [facility],Ag[facility] 10/19/18 16:05 Consult to Podiatry Routine Consulting Provider: Shelli Kirk Reason for Consultation: Left lower extremity cellulitis, please assess for need of possible debridement, thank you Notified:: Office Spoke with:: HOWARD Date Notified:: 10/19/18 Time Notified:: 16:28 Ordering Provider: TEDDY 10/20/18 14:23 Consult to Vascular Surgery Routine Consulting Provider: Rachna Gentile Preferred [employer] Day Worker:: Rachna Gentile Reason for Consultation: left leg gangrene Notified:: Physician Spoke with:: Date Notified:: 10/20/18 Time Notified:: 14:42 Ordering Provider: RAYSHAWN 10/22/18 11:10 HUB Only Consult Order [facility]ine [facility],[place] Reason for Consultation: SNF Notified:: Office Spoke with:: LORETTA Date Notified:: 10/22/18 Time:: 11:11 10/22/18 11:18 HUB Only Consult Order Routine Consulting Provider: [employer] 10/25/18 13:32 HUB Only Consult Order Routine Consulting Provider: [facility] [employer] Reason for Consultation: REHAB Notified:: Office Spoke with:: SERGIO Date Notified:: 10/25/18 Time:: 13:33 10/25/18 13:54 HUB Only Consult Order Routine Consulting Provider: [employer] Reason for Consultation: REHAB Notified:: Office Spoke with:: VIET Date Notified:: 10/25/18 Time:: 13:54 10/15/18 01:07 HUB Only Consult Order Routine Consulting Provider: [employer]urance 10/15/18 11:24 Consult to Infectious Diseases Routine Consulting Provider: Theresa Laws Reason for Consultation: Sepsis, LLE cellulitis, diabetes Notified:: Service Spoke with:: CHANA Date Notified:: 10/15/18 Time Notified:: 11:38 Ordering Provider: TEDDY 10/15/18 17:30 Consult to Psychiatry Routine Consulting Provider: London Noble Reason for Consultation: Self-care neglect, recent loss of his father in July Notified:: Office Spoke with:: BASILIA Date Notified:: 10/15/18 Time Notified:: 18:18 Ordering Provider: TEDDY Brief History from admission: This is a 62-year-old male with a PMH of DM who was brought to the ER by EMS for left leg pain and swelling x4 days. Pt minimally conversive, difficult to obtain history, but denies injury/trauma, no recent antibiotics, did not seek medical attention until now. On arrival, BP 113/56, HR 110, O2 sat 100% on RA, Afebrile. WBC 23.4. Hemoglobin 8.2, previously 10.3 on 03/02/2018. Creatinine 2.06, previously 1.28 on 03/03/2018. + cellulitis on exam, s/p Vanc in ER. DS: Summary SEPSIS due to LLE cellulitis - bld cultures neg x2 from 10/14. CELLULITIS and diabetic foot wounds L FOOT w gangrene, -ct wo abscess or osteo -us neg for dvt -wound cx/gs neg x 72 hrs, on clindamycin. -podiatry following, vascular surgery following. CTA runoff showed diffuse disease. Patient underwent left BKA on 10/26/18. Doing well postop. -Dr. Ferreira to reevaluate the stump today. Plan to continue antibiotics till per ID. ANEMIA s/p transfusion no acute bleeding - hgb 7.9 , cont ppi, iron , hx of chronic anemia. Status post transfusions. H&H stable . -egd 10/19/18 - esophageal varices, nml -ct abd pelvis neg -Unremarkable colonoscopy. -GI signed off. ABDIEL prerenal azotemia due to sepsis - resolved cr 2/6-->0.89 DMII - uncontrolled, a1c 8.4 - cont iss, diet, hold metformin for now ADJUSTMENT DO w depressed mixed anxiety and depressed mood - seen by psychiatry stable SEVERE PROTEIN VICKI MALNUTRITION alb 1.4 - nutrition consult, supplement CAD,PAD, OR post CABG - cont home meds DYSLIPIDEMIA CHF w EF 40% chronic stable DIABETIC RETINOPATHY vision impaired - fall precautions, doesn't drive dvt prophylaxis - sq heparin Time Spent with Patient Total time spent providing and/or coordinating discharge services: Less than 30 minutes Quality: VTE Deep Vein Thrombosis/Pulmonary Embolism Present on Admission: No Exam Narrative Exam Narrative: patient in no acute distress. S1/S2 heard- abdomen is soft. s/p left BKA- bilateral air entry present. Results Procedures completed during hospitalization: left BKA. Pending studies at discharge: Pending at discharge 10/26/18 13:35 Surgical [PTH] Routine Labs on day of discharge: Labs from last 24 hours 10/30/18 10/30/18 10/30/18 12:01 07:49 07:43 WBC RBC Hgb Hct MCV MCH MCHC RDW Plt Count MPV Sodium 138 Potassium 4.0 Chloride 104 Carbon Dioxide 26.6 Anion Gap 7 BUN 12 Creatinine 1.01 Estimated GFR Greater than 89 POC Glucose 197 H 132 H Random Glucose 113 H Calcium 8.5 10/30/18 10/29/18 10/29/18 07:43 21:34 17:05 WBC 7.1 RBC 3.07 L Hgb 9.5 L Hct 28.5 L MCV 92.6 MCH 30.8 MCHC 33.3 RDW 14.2 Plt Count 346 MPV 7.5 Sodium Potassium Chloride Carbon Dioxide Anion Gap BUN Creatinine Estimated GFR POC Glucose 176 H 253 H Random Glucose Calcium Impressions ITS Impressions Lower Extremity CT 10/15/18 00:00 CONCLUSION: 1. Cellulitis without abscess or osteomyelitis. Venous Doppler Study 10/15/18 00:00 CONCLUSION: 1. No sonographic evidence for left lower extremity DVT. Abdomen/Pelvis CT 10/16/18 00:00 CONCLUSION: 1. No acute findings within the abdomen. Trace free fluid in the pelvis of unknown etiology. Aorta w/Runoff CTA 10/21/18 14:52 CONCLUSION: 1. Diffuse atherosclerotic disease most prominent in the lower legs bilaterally. Proximal occlusion of the anterior tibial arteries bilaterally and of the posterior tibial artery on the left. Peroneal arteries patent to the foot bilaterally. Posterior tibial artery patent to the foot on the right. Reconstitution of the posterior tibial artery on the left 10 cm above the ankle. 2. No evidence of high-grade arterial stenosis or occlusion in the thigh or popliteal regions. 3. Diffuse atherosclerotic disease of the internal iliac arteries. Abdominal aorta diameter within normal limits. Mesenteric arteries and renal arteries widely patent. Discharge Plan Physicians Team Primary Care Provider: UNKNOWN, Attending Provider: Natanael Neely Other Providers: [facility],Insurance ; Theresa Laws ; London Noble ; Kristian Echeverria ; [facility],[place] ; [facility], [place] ; [facility] ; Rachna Gentile ; [facility],[place] ; [facility],[place] ; [facility],[place] Rxs /Orders / Referrals /Forms Prescriptions: New atorvastatin 40 mg Tablet 40 mg PO HS Qty: 30 RF: 0 metoprolol tartrate 25 mg Tablet 25 mg PO BID 30 Days Qty: 60 RF: 0 clindamycin HCl [Cleocin HCl] 150 mg Capsule 300 mg PO Q6HR 4 Days Qty: 32 RF: 0 ferrous sulfate [FeroSul] 325 mg (65 mg iron) Tablet 325 mg PO DAILY 30 Days Qty: 30 RF: 0 levofloxacin 750 mg Tablet 750 mg PO DAILY 4 Days Qty: 4 RF: 0 Continue metformin 500 mg Tablet 500 mg PO BID RF: 0 Ambulatory Orders / Order Sets / DME: Walker With Front Wheels (1 each) (Routine) Location: Determined by Patient Ordered By: Ju Holland Referrals: UNKNOWN, [Primary Care Provider] - See Instructions Status ED Status: Left Department
== END 2018-10-30 19:10 | DRG 853 ==
LOC: NEPE 21:59 → NEDA 10-15 00:53 → NEPHCDU 10-15 02:45 → UNDODISIN 10-17 18:17 → N05 10-20 12:45
PROVIDERS: ADMIT Internal Medicine; ATTEND Internal Medicine
PROC: PANENDO (2018-10-19 11:41)
PROC: COLONOS (2018-10-19 11:41)
DX: L97.509 Non-pressure chronic ulcer of other part of unspecified foot with unspecified severity; Z95.1 Presence of aortocoronary bypass graft; K44.9 Diaphragmatic hernia without obstruction or gangrene; E78.5 Hyperlipidemia, unspecified; R26.81 Unsteadiness on feet; D64.9 Anemia, unspecified; I25.10 Atherosclerotic heart disease of native coronary artery without angina pectoris; K21.9 Gastro-esophageal reflux disease without esophagitis; N17.9 Acute kidney failure, unspecified; R60.0 Localized edema; E87.6 Hypokalemia; E43 Unspecified severe protein-calorie malnutrition; N18.3 Chronic kidney disease, stage 3 (moderate); E11.621 Type 2 diabetes mellitus with foot ulcer; A41.9 Sepsis, unspecified organism; I70.262 Atherosclerosis of native arteries of extremities with gangrene, left leg; L03.116 Cellulitis of left lower limb; E11.52 Type 2 diabetes mellitus with diabetic peripheral angiopathy with gangrene; F12.10 Cannabis abuse, uncomplicated; I85.00 Esophageal varices without bleeding; M19.90 Unspecified osteoarthritis, unspecified site; F43.23 Adjustment disorder with mixed anxiety and depressed mood; Z89.411 Acquired absence of right great toe; Z79.84 Long term (current) use of oral hypoglycemic drugs; I13.0 Hypertensive heart and chronic kidney disease with heart failure and stage 1 through stage 4 chronic kidney disease, or unspecified chronic kidney disease; E11.22 Type 2 diabetes mellitus with diabetic chronic kidney disease; I50.9 Heart failure, unspecified
CPT/HCPCS: 36430; 73700; 74176; 75635; 80048; 80053; 80307; 81001; 82140; 82550; 82607; 82728; 82747; 82948; 82962; 83010; 83540; 83550; 83605; 83615; 85014; 85018; 85025; 85027; 85044; 86850; 86900; 86901; 86923; 87040; 87070; 87205; 88307; 93005; 93971; 97110; 97163; 97164; 97530; C9124; J0692; J0878; J1644; J1815; J2250; J2270; J2405; J3010; J3370; J7030; J7040; J7050; J7120; P9016; Q9963; Q9967